=== PATIENT | male | born 1945 | race African-American/Black ===

== ENCOUNTER 2017-02-23 14:43 | Inpatient (IN) | payer MEDICARE, OTHER ==
[~2017-02-23] VITALS: Ht 175.3 cm; Wt 59.4 kg
[~2017-02-23 14:43] MED LIST: ALDACTONE50 MG ORAL; ASPIRIN81 MG ORAL; BENAZEPRIL HCL20 MG ORAL; CARTIA XT120 MG ORAL; COMBIVENT RESPIM4 GM IH; DILTIAZEM 24HR120 M1 ORAL; DILTIAZEM ER240 MG PO; DOCUSATE SODIU100 MG ORAL; FERROUS SULFAT325 MG ORAL; FUROSEMIDE20 M1 ORAL; FUROSEMIDE40 MG ORAL; FUROSEMIDE80 M1 ORAL; JANTOVEN1 MG ORAL; LASIX40 MG ORAL; LEVAQUIN500 MG ORAL; MINIPRESS1 MG PO; MINIPRESS5 MG PO; PROTONIX20 MG ORAL; Potassium Chloride ORAL; TOPROL XL50 MG ORAL; TRAMADOL HCL50 MG ORAL; TYLENOL EXTRA500 MG ORAL; VITAMIN D400 INTLU ORAL; WARFARIN SODIUM2 MG ORAL; XARELTO10 MG ORAL; ZOCOR40 MG ORAL
[2017-02-23 15:05] VITALS: BP 153/73
[2017-02-23] MEDS ORDERED: PROSCAR5 MG ORAL (15:05)
[2017-02-23] MEDS ORDERED: XARELTO10 MG ORAL (15:06)
[2017-02-23] MEDS ORDERED: MAGNEBIND 4001 EACH PO (15:07)
[2017-02-23 15:18] LABS: BASOPHILS % (AUTO) 0.8 % (0.0-2.0); EOSINOPHILS % (AUTO) 0.2 % (0.0-3.0); LYMPHOCYTES % (AUTO) 12.8 % (20.0-45.0); MEAN CORPUSCULAR HEMOGLOBIN 24.9 PG (27.0-31.0); MEAN CORPUSCULAR HGB CONC 30.1 G/DL (32.0-36.0); MEAN CORPUSCULAR VOLUME 83 FL (80-99); MEAN PLATELET VOLUME 7.8 FL (6.5-10.1); MONOCYTES % (AUTO) 9.6 % (1.0-10.0); NEUTROPHILS % (AUTO) 76.6 % (45.0-75.0); PLATELET COUNT 179 K/UL (150-450); RED BLOOD COUNT 3.91 M/UL (4.70-6.10); RED CELL DISTRIBUTION WIDTH 18.7 % (11.6-14.8); WHITE BLOOD COUNT 12.1 K/UL (4.8-10.8)
[2017-02-23 15:30] LABS: TROPONIN I < 0.30 ng/mL (<=0.30)
[2017-02-23 15:34] LABS: ALANINE AMINOTRANSFERASE 6 U/L (3-41); ALBUMIN/GLOBULIN RATIO 0.5 (1.0-2.7); ANION GAP 18 (5-15); ASPARTATE AMINO TRANSFERASE 21 U/L (5-40); CARBON DIOXIDE 22 mEQ/L (20-30); CHLORIDE 101 mEQ/L (98-107); CREATININE 1.3 mg/dL (0.7-1.2); HEMOLYSIS 0; POTASSIUM 4.1 mEQ/L (3.4-4.9); SODIUM 141 mEQ/L (135-145); TOTAL PROTEIN 8.9 g/dL (6.6-8.7)
[2017-02-23 15:35] LABS: REFLEX LACTIC ACID YES OR NO YES
[2017-02-23 15:39] LABS: CKMB 3.3 ng/mL (< 6.7)
[2017-02-23 16:00] VITALS: BP 125/73
[2017-02-23 16:18] LABS: APPEARANCE,URINE CLOUDY; KETONES,URINE NEGATIVE (NEGATIVE); LEUKOCYTE ESTERASE ,URINE NEGATIVE (NEGATIVE); NITRITE,URINE NEGATIVE (NEGATIVE); PH,URINE 5 (4.5-8.0); PROTEIN,URINE 3+ (NEGATIVE); UROBILINOGEN,URINE 8 MG/DL (0.0-1.0)
[2017-02-23 16:35] LABS: AMORPHOUS SEDIMENT,UR MODERATE /LPF; RBC,URINE 0-2 /HPF (0 - 0); WBC,URINE 0-2 /HPF (0 - 0)
[2017-02-23 17:00] VITALS: BP 134/79
[2017-02-23] MEDS ORDERED: Solu-MEDROL 125mg Inj IVP ONE (17:15)
--- NOTE | 2017-02-23 17:21 | Emergency Room Report ---
History of Present Illness General Chief Complaint: Dyspnea/Respdistress Source: Patient Present Illness HPI 71-year-old male presents to ED with shortness of breath. Patient brought in by son-in-law who states the patient has been complaining of shortness of breath for 2 days. States he is having trouble breathing. Unclear whether he is having chest pain. Patient has a history of CHF, COPD. Has a pacemaker. Denies fevers or chills. states he has a cough which is productive. Patient denies any leg swelling. No other aggravating relieving factors. Denies any other associated symptoms Allergies: Coded Allergies: SHELLFISH (Verified Allergy, Unknown, 07/01/11) Patient History Past Medical History: HTN, CHF, asthma, COPD, CVA/TIA Past Surgical History: pacemaker Pertinent Family History: none Social History: Denies: alcohol use, drug use, smoking Immunizations: UTD Reviewed Nursing Documentation: PMH: Agreed, PSxH: Agreed Nursing Documentation-PMH Past Medical History: No History, Except For Hx Cardiac Problems: Yes Hx Hypertension: Yes Hx Pacemaker: Yes - VPACED Hx Asthma: Yes Hx COPD: Yes Hx Diabetes: No Hx Cancer: No Hx Gastrointestinal Problems: Yes Hx Neurological Problems: Yes Hx Cerebrovascular Accident: Yes Hx Speech Problem: Yes Hx Dizziness: Yes Hx Syncope: Yes Hx Headaches: Yes Hx Aphasia: Yes Hx Dysphasia: Yes Hx Weakness: Yes Hx Fatigue: Yes Review of Systems All Other Systems: negative except mentioned in HPI Physical Exam Vital Signs Date Time Temp Pulse Resp B/P Pulse Ox O2 Delivery O2 Flow Rate FiO2 02/23/17 14:49 98.2 69 28 161/118 94 Nasal Cannula 2.0 02/23/17 15:00 30 Sp02 EP Interpretation: reviewed, normal General Appearance: alert, GCS 15, non-toxic, moderate distress Head: normocephalic Eyes: bilateral eye PERRL, bilateral eye normal inspection ENT: normal ENT inspection Neck: normal inspection Respiratory: decreased breath sounds, accessory muscle use, crackles Cardiovascular #1: regular rate, rhythm, no edema Gastrointestinal: normal inspection Rectal: deferred Genitourinary: no CVA tenderness Musculoskeletal: normal inspection Neurologic: alert, oriented x3, responsive, motor strength/tone normal, sensory intact, speech normal Psychiatric: normal inspection Skin: normal inspection Lymphatic: normal inspection Procedures Critical Care Time Critical Care Time i. I feel this is a highly complex case requiring extensive working including EKG/Rhythm strip, Xray/CT/US, Blood/urine lab work, repeat exams while in ED, and administration of strong opiates/narcotics for pain control, admission to hospital or close patient follow up. Total time: 30 min bedside evaluation and treatment excludes procedures (EKG). Reason for critical care: Respiratory distress, retractions, hypertensive Possible complications: hypotension, hypertension, IL, shock, arrhythmias, metabolic acidosis, end organ damage, respiratory failure. Interventions: BiPAP, labs, EKG, chest x-ray, Lasix, abx Course: Patient brought in for respiratory distress. History of CHF and COPD. Patient crackles to the apices in both lungs. Hypertensive. Started on BiPAP. Chest x-ray shows significant cardiomegaly with pulmonary congestion and possible pneumonia. Leukocytosis noted. Lactic elevated. BNP elevated. Given Lasix. Given antibiotics. Given steroids. On reassessment breathing is improved Consultations: nursing staff, EMS, family Performed by: Dr Hedrick Tolerated well condition = serious j. because of unstable vital signs this patient had a condition that could potentially threaten life or limb. I feel this is a critical patient who required my full attention while patient was considered critical. Total Critical Care Time excluding procedures was greater than 35 minutes Medical Decision Making Diagnostic Impression: Primary Impression: CHF exacerbation Qualified Codes: I50.9 - Heart failure, unspecified Additional Impressions: COPD (chronic obstructive pulmonary disease) Qualified Codes: J44.9 - Chronic obstructive pulmonary disease, unspecified Pneumonia Qualified Codes: J18.9 - Pneumonia, unspecified organism ER Course Hospital Course 71-year-old male presents ED complaining of shortness of breath, h/o COPD and CHF Differential diagnoses include: IL/unstable angina, contusion, muscle strain, PTX, rib fracture Clinical course Patient placed on stretcher. on quality assurance monitor chassis. After initial history and physical, I ordered BiPAP. I ordered labs, EKG, chest x-ray labs reviewed- noted leukocytosis, hemoglobin/hematocrit stable, creatinine elevated, troponins negative, BNP markedly elevated Chest x-ray- cardiomegaly, pulmonary congestion, pacemaker. ? infiltrate EKG - paced rhythm. no ischemic changes On reassessment breathing is improved. Given Solu-Medrol. Patient will not receive 30 mL per KG fluid bolus because of significant congestive heart failure and poor ejection fraction Antibiotics given. Lasix given. Case discussed with Dr. young and he agreed to accept the patient to his service for further care and support I. I feel this is a highly complex case requiring extensive working including EKG/Rhythm strip, Xray/CT/US, Blood/urine lab work, repeat exams while in ED, and administration of strong opiates/narcotics for pain control, admission to hospital or close patient follow up. Diagnosis - CHF exacerbation, COPD exacerbation, pneumonia admitted to [facility] in serious condition Labs Test 02/23/17 15:05 02/23/17 15:50 02/23/17 16:00 White Blood Count 12.1 K/UL (4.8-10.8) Red Blood Count 3.91 M/UL (4.70-6.10) Hemoglobin 9.7 G/DL (14.2-18.0) Hematocrit 32.3 % (42.0-52.0) Mean Corpuscular Volume 83 FL (80-99) Mean Corpuscular Hemoglobin 24.9 PG (27.0-31.0) Mean Corpuscular Hemoglobin Concent 30.1 G/DL (32.0-36.0) Red Cell Distribution Width 18.7 % (11.6-14.8) Platelet Count 179 K/UL (150-450) Mean Platelet Volume 7.8 FL (6.5-10.1) Neutrophils (%) (Auto) 76.6 % (45.0-75.0) Lymphocytes (%) (Auto) 12.8 % (20.0-45.0) Monocytes (%) (Auto) 9.6 % (1.0-10.0) Eosinophils (%) (Auto) 0.2 % (0.0-3.0) Basophils (%) (Auto) 0.8 % (0.0-2.0) Sodium Level 141 mEQ/L (135-145) Potassium Level 4.1 mEQ/L (3.4-4.9) Chloride Level 101 mEQ/L (98-107) Carbon Dioxide Level 22 mEQ/L (20-30) Anion Gap 18 (5-15) Blood Urea Nitrogen 19 mg/dL (7-23) Creatinine 1.3 mg/dL (0.7-1.2) Estimat Glomerular Filtration Rate mL/min (>60) Glucose Level 93 mg/dL (74-106) Lactic Acid Level 4.60 mmol/L (0.66-2.22) 4.00 mmol/L (0.66-2.22) Calcium Level 9.0 mg/dL (8.6-10.2) Total Bilirubin 0.9 mg/dL (0.0-1.2) Aspartate Amino Transf (AST/SGOT) 21 U/L (5-40) Alanine Aminotransferase (ALT/SGPT) 6 U/L (3-41) Alkaline Phosphatase 119 U/L (40-129) Total Creatine Kinase 122 U/L (38-174) Creatine Kinase MB 3.3 ng/mL (< 6.7) Creatine Kinase MB Relative Index 2.7 Troponin I < 0.30 ng/mL (<=0.30) Pro-B-Type Natriuretic Peptide 9293 pg/mL (0-125) Total Protein 8.9 g/dL (6.6-8.7) Albumin 3.1 g/dL (3.5-5.2) Globulin 5.8 g/dL Albumin/Globulin Ratio 0.5 (1.0-2.7) Urine Color Yellow Urine Appearance Cloudy Urine pH 5 (4.5-8.0) Urine Specific [place] 1.025 (1.005-1.035) Urine Protein 3+ (NEGATIVE) Urine Glucose (UA) Negative (NEGATIVE) Urine Ketones Negative (NEGATIVE) Urine Occult Blood 2+ (NEGATIVE) Urine Nitrite Negative (NEGATIVE) Urine Bilirubin 1+ (NEGATIVE) Urine Ictotest Urine Urobilinogen 8 MG/DL (0.0-1.0) Urine Leukocyte Esterase Negative (NEGATIVE) Urine RBC 0-2 /HPF (0 - 0) Urine WBC 0-2 /HPF (0 - 0) Urine Squamous Epithelial Cells None /LPF (NONE/OCC) Urine Amorphous Sediment Moderate /LPF (NONE) Urine Bacteria None /HPF (NONE) EKG Diagnostic Results Rate: normal Rhythm: other - paced ryhthm ST Segments: no acute changes ASA given to the pt in ED: No Rhythm Strip Diag. Results EP Interpretation: yes Rhythm: no PVC's, no ectopy, other - paced ryhthm Chest X-Ray Diagnostic Results Chest X-Ray Ordered: Yes # of Views/Limited/Complete: 1 View Interpretation: no pneumothorax, other - cardiomegaly. interstitial edema. pacemaker. ? infiltrate Indication: Shortness of Breath Impression: Other - CHF exacerbation with ? infiltrate Date Electronically Signed: Feb 23, 2017 Time Electronically Signed: 17:27 Last Vital Signs Date Time Temp Pulse Resp B/P Pulse Ox O2 Delivery O2 Flow Rate FiO2 02/23/17 16:40 76 25 96 Facial 15.0 30 02/23/17 15:05 98.2 153/73 Status: improved Disposition: ADMITTED INPATIENT Condition: Serious Referrals: HODAN YOUNG (PCP) NUZHAT HEDRICK M.D. Feb 23, 2017 17:21
[2017-02-23 18:00] VITALS: BP 121/75
[2017-02-23 19:00] VITALS: BP 120/63
[2017-02-23 20:00] VITALS: BP 129/76
[2017-02-23] MEDS ORDERED: Azithromycin 250mg tab ORAL ONE (20:00)
[2017-02-23] MEDS: cefTRIAXone 1 GM in D5W 55 ML IVPB SCH (20:30)
--- NOTE | 2017-02-23 21:31 | Consultation ---
Consult Note Assessment/Plan #[id number] COPD exac Decompensated CHF [id number] failure on bipap hypoxemia htn hx of CVA with dysphagia and aphasia PIERRE GRIFFIN DO Feb 23, 2017 21:31
[2017-02-23] MEDS: Solu-MEDROL 40mg Inj IVP SCH (22:10)
[2017-02-23] MEDS: DuoNeb 0.5-3(2.5)mg/3ml neb HHN SCH (23:03)
[2017-02-24] VITALS (7 sets, daily range): BP systolic 105–113; BP diastolic 47–57
[2017-02-24] MEDS: DuoNeb 0.5-3(2.5)mg/3ml neb HHN SCH ×6 (03:29→22:10)
--- NOTE | 2017-02-24 03:30 | Consultation ---
DATE OF CONSULTATION: 02/23/2017 CARDIOLOGY CONSULTATION: CONSULTING PHYSICIAN: Chay Godinez M.D. REQUESTING PHYSICIAN: Martinez Rubalcava M.D. REASON FOR CONSULTATION: Congestive heart failure. HISTORY OF PRESENT ILLNESS: This 71-year-old male presented to the emergency room earlier today complaining of shortness of breath of two days duration. He has not had chest pain. He has had some cough and congestion. He has not had any leg swelling. The patient has been compliant with medications and no change in diet has been noted. PAST MEDICAL HISTORY: 1. COPD. 2. Hypertension with hypertensive heart disease. 3. Coronary artery disease. 4. Arteriosclerotic cardiovascular disease. 5. Paroxysmal atrial fibrillation. 6. Permanent pacemaker. 7. Chronic systolic and diastolic congestive heart failure. 8. Diverticulosis. 9. Hemorrhoids. 10. Mild dysarthria. 11. Osteoarthritis. ALLERGIES: Shellfish. MEDICATIONS: Prior to admission, reviewed and reconciled. SOCIAL HISTORY: Former smoker, 55-pack a year, occasional beer, no excessive alcohol use, no drug abuse, and lives with his family members. FAMILY HISTORY: Noncontributory. REVIEW OF SYSTEMS: No loss of hearing. No headache. Slightly decrease vision in general. No history of thyroid disorder or diabetes. He has been . The patient is consolidated. He has had COPD with exacerbation for a number of years. The patient has a history of coronary artery disease. He had myocardial perfusion scan in 2016 that revealed mild reversible ischemia, managed medically since. He had an echocardiogram done in 2016 that revealed an ejection fraction of approximately 40% to 45% with mild degenerative valve disease. The patient has a history of GI bleeding due to hemorrhoids and diverticulosis. There is no history of prostate cancer. He has chronic kidney disease. He does have a prior stroke and mild dysarthria. He has had some limitations of his . PHYSICAL EXAMINATION: VITAL SIGNS: Temperature is 98.2 degrees, blood pressure 161/118, heart rate 69, respiratory rate 28, and oxygen saturation on two liters 94%. GENERAL: He is in moderate respiratory distress. Some accessory muscle use is noted. HEENT AND NECK: Jugular venous pressure is slightly elevated. LUNGS: With coarse breath sounds. Scattered rhonchi and rales. CARDIAC: Reveals regular rhythm and rate. Normal S1, paradoxically split S2. A 1/6 systolic murmur at the apex. ABDOMEN: Soft and nontender with no guarding or rebound. EXTREMITIES: No clubbing or cyanosis. Good pulses with trace dependent edema. DIAGNOSTIC DATA: Chest x-ray reveals cardiomegaly, pulmonary venous congestion, and possible basilar infiltrate. EKG reveals ventricular pacing. LABORATORY DATA: White count is 12.1 and hemoglobin 9.7. Lactic acid is 4.6. Troponin is negative. Pro-natriuretic peptide is 9200. Albumin is 3.1. Sodium was 141, potassium 4.1, bicarbonate 22, BUN 19, creatinine 1.3, and glucose 93. IMPRESSION: 1. Chronic obstructive pulmonary disease with acute exacerbation and acute bronchospasm. 2. Probable community-acquired pneumonia. 3. Acute on chronic systolic and diastolic congestive heart failure. 4. Lactic acidosis. 5. Possible sepsis. 6. Mild protein-calorie malnutrition. 7. Permanent pacemaker. 8. Paroxysmal atrial fibrillation. 9. Anemia with hypochromic and microcytic indices. PLAN: 1. Panculture. 2. Cardiac monitoring. 3. BiPAP support. 4. Empiric antibiotics. 5. Inhaled bronchodilators. 6. Intravenous diuresis. 7. Deep venous thrombosis prophylaxis. 8. Monitor hemoglobin. 9. Monitor volume status and cardiorenal parameters. 10. Maximize antianginal therapy. 11. Monitor acid-base status. 12. Serial lactic acid levels. 13. Condition is serious and prognosis is guarded. Chay Godinez M.D. DR: Kathy JOB#: [id number] CC:
--- NOTE | 2017-02-24 04:15 | Consultation ---
DATE OF CONSULTATION: 02/23/2017 REASON FOR CONSULTATION: Respiratory failure. HISTORY OF PRESENT ILLNESS: The patient is a 71-year-old gentleman, who was brought to the emergency room by emergency medical service for shortness of breath. He had been having worsening shortness of breath over 2 days. No nausea, vomiting, or diarrhea. No cough, phlegm, or sputum production. No hemoptysis is noted. He does have a history of congestive heart failure and chronic obstructive pulmonary disease and was felt to have mild exacerbation of both. He has had no leg swelling to report and has been taking all his medications as scheduled. He does have generalized weakness and aphasia as well as dysphagia. PAST MEDICAL HISTORY: Hypertension, congestive heart failure, asthma, chronic obstructive pulmonary disease, CVA, and transient ischemic attack. PAST SURGICAL HISTORY: Pacemaker. SOCIAL HISTORY: Currently, denies tobacco, alcohol, or drug abuse. Used tobacco in the past. PREOPERATIVE MEDICATIONS: Reviewed, reconciled and documented in the electronic medical record. PHYSICAL EXAMINATION: GENERAL: At the time of my exam, he is alert. He is oriented to person, follows and attempts to communicate. He is in no respiratory distress. He is currently on BiPAP 12/5 with tidal volumes of 500. VITAL SIGNS: His blood pressure is 129/76, pulse 62, and respirations 22. He is afebrile and saturating 100%. HEENT: His oropharynx is moist. His nasal mucosa is moist. NECK: Supple. No lymphadenopathy. LUNGS: Have bilateral crackles. No wheezes present. HEART: Regular rate and rhythm without murmur. ABDOMEN: Distended and tender. Positive bowel sounds. EXTREMITIES: No edema. Right-sided weakness is present. SKIN: No skin rashes, wounds, or lesions are noted. LABORATORY AND DIAGNOSTIC DATA: His white count 12.1, hemoglobin 9.7, and platelets are 179,000. His sodium 141, potassium 4.1, chloride 102, bicarbonate 22, BUN 19, and creatinine 1.3. His lactic acid is 4. His LFTs are essentially normal. His BNP is elevated at 4293. His urinalysis is negative for leukocyte esterase. Chest x-ray was performed per the ER record with cardiomegaly, congestive heart failure and possible infiltrate. His EKG is paced rhythm with no ischemic changes. ASSESSMENT: 1. Decompensated heart failure. 2. Chronic obstructive pulmonary disease exacerbation. 3. Possible left lower lobe infiltrate. PLAN: Plan for this patient, he is given antibiotics and Lasix in the emergency room and should be continued. I would also give 40 mg of intravenous Solu-Medrol q. 12 hours and taper accordingly. Nebulizer treatments. DVT prophylaxis. Aspiration precautions. Repeat bedside swallow. Nebulizers every 4 hours around the clock. Repeat chest x-ray in the a.m. and check a sputum for C&S. Continue the BiPAP overnight. We will attempt to take it off. I will consider to remove it in the morning and titrate his O2 for sats greater than 92%. We will continue to monitor the patient during the recent hospital stay. Yohana Cordoba D.O. DR: MARCIA JOB#: [id number] CC:
[2017-02-24] MEDS: Solu-MEDROL 40mg Inj IVP SCH ×3 (06:35→20:56)
[2017-02-24 06:37] LABS: MEAN CORPUSCULAR HEMOGLOBIN 25.9 PG (27.0-31.0); MEAN CORPUSCULAR HGB CONC 31.2 G/DL (32.0-36.0); MEAN CORPUSCULAR VOLUME 83 FL (80-99); PLATELET COUNT 121 K/UL (150-450); RED BLOOD COUNT 3.57 M/UL (4.70-6.10); RED CELL DISTRIBUTION WIDTH 18.2 % (11.6-14.8); WHITE BLOOD COUNT 8.5 K/UL (4.8-10.8)
[2017-02-24 07:24] LABS: ANION GAP 16 (5-15); CALCIUM 8.6 mg/dL (8.6-10.2); CARBON DIOXIDE 23 mEQ/L (20-30); CHLORIDE 103 mEQ/L (98-107); CREATININE 1.3 mg/dL (0.7-1.2); HEMOLYSIS 0; POTASSIUM 4.4 mEQ/L (3.4-4.9); SODIUM 142 mEQ/L (135-145)
[2017-02-24 07:30] LABS: TROPONIN I < 0.30 ng/mL (<=0.30)
[2017-02-24 08:08] LABS: ANISOCYTOSIS 1+; BAND NEUTROPHILS % (MANUAL) 0 % (0-8); BASOPHILS % (MANUAL) 0 % (0-2); EOSINOPHILS % (MANUAL) 0 % (0-3); HYPOCHROMASIA 1+; LYMPHOCYTES % (MANUAL) 3 % (20-45); NEUTROPHILS % (MANUAL) 96 % (45-75); PLATELET ESTIMATE DECREASED; PLATELET MORPHOLOGY NORMAL; TOTAL CELLS COUNTED 100
[2017-02-24] MEDS: Azithromycin 250mg tab ORAL SCH (09:15)
[2017-02-24] MEDS ORDERED: Acetaminophen 500mg (ES) tab ORAL PRN (10:00)
[2017-02-24] MEDS ORDERED: Diltiazem CD 240mg cap ORAL SCH (11:00)
[2017-02-24] MEDS ORDERED: Lisinopril 20mg tab ORAL SCH (11:00)
[2017-02-24] MEDS: Aspirin Baby 81mg ORAL SCH (12:24)
[2017-02-24] MEDS: Spironolactone 25mg tab ORAL SCH (12:24)
[2017-02-24] MEDS: Docusate 250mg cap ORAL SCH ×2 (12:25→17:43)
[2017-02-24] MEDS: Xarelto 10mg tab ORAL SCH (12:25)
[2017-02-24 15:13] LABS: KETONES,URINE NEGATIVE (NEGATIVE); LEUKOCYTE ESTERASE ,URINE 3+ (NEGATIVE); NITRITE,URINE NEGATIVE (NEGATIVE); PH,URINE 5 (4.5-8.0); PROTEIN,URINE 1+ (NEGATIVE); UROBILINOGEN,URINE NORMAL MG/DL (0.0-1.0)
[2017-02-24 15:14] LABS: APPEARANCE,URINE SLIGHTLY CLOUDY
[2017-02-24 15:22] LABS: BACTERIA,URINE MODERATE /HPF; MUCUS,URINE FEW /LPF (NONE/OCC); RBC,URINE 60-80 /HPF (0 - 0); SQUAMOUS EPITHELIAL CELL,UR MODERATE /LPF (NONE/OCC); WBC,URINE 15-20 /HPF (0 - 0)
--- NOTE | 2017-02-24 20:01 | Pulmonology Progress Note ---
Assessment/Plan Assessment/Plan 1. Decompensated heart failure. 2. Chronic obstructive pulmonary disease exacerbation. 3. Possible left lower lobe infiltrate. 4. UTI 5. Abdominal pain 6. Expressive aphasia 7. hx of prostate CA PLAN: continue abx diuresis per cards repeat CR otis am Fu kub,unable to see at thsi time, will get report from radiology bipap prn distress nebs adn suction titrate o2 Subjective Constitutional: Reports: no symptoms Respiratory: Reports: no symptoms Cardiovascular: Reports: no symptoms Gastrointestinal/Abdominal: Reports: other - pain Allergies: Coded Allergies: SHELLFISH (Verified Allergy, Unknown, 07/01/11) Subjective tolerating being off bipap no distress tolerating clears no cp nv or bleeding on supple o2 positive uop complains of abdominal pain Objective Last 24 Hour Vital Signs Date Time Temp Pulse Resp B/P Pulse Ox O2 Delivery O2 Flow Rate FiO2 02/24/17 19:37 72 20 99 Nasal Cannula 2.0 28 02/24/17 19:30 98 Nasal Cannula 2.0 28 02/24/17 19:30 Nasal Cannula 2.0 28 02/24/17 19:30 69 20 98 Nasal Cannula 2.0 28 02/24/17 17:01 63 02/24/17 16:23 69 25 99 Nasal Cannula 2.0 28 02/24/17 16:14 28 02/24/17 16:14 68 25 99 Nasal Cannula 2.0 28 02/24/17 16:00 98.0 62 22 113/54 100 Nasal Cannula 2.0 02/24/17 12:25 65 105/56 02/24/17 12:00 98.0 59 21 105/53 100 Nasal Cannula 2.0 02/24/17 11:46 66 02/24/17 10:53 69 25 99 Nasal Cannula 2.0 28 02/24/17 10:43 68 25 99 Nasal Cannula 2.0 28 02/24/17 10:43 28 02/24/17 08:41 70 41 98 Facial 30 02/24/17 08:00 30 02/24/17 08:00 98.0 60 29 111/54 100 Bi-pap 30 02/24/17 07:54 61 02/24/17 07:01 66 33 99 Bi-pap 30 02/24/17 06:51 66 33 99 Facial 30 02/24/17 06:51 30 02/24/17 06:51 66 33 99 Bi-pap 30 02/24/17 05:05 64 25 99 Facial 30 02/24/17 04:00 60 02/24/17 04:00 30 02/24/17 03:50 97.9 60 20 107/57 100 Bi-pap 02/24/17 03:40 64 25 97 Bi-pap 30 02/24/17 03:29 62 24 99 Bi-pap 30 02/24/17 03:29 30 02/24/17 03:00 64 30 99 Facial 30 02/24/17 01:00 62 30 99 Facial 30 02/24/17 00:47 97.9 02/24/17 00:00 97.9 63 21 113/57 100 Bi-pap 30 02/23/17 23:46 60 02/23/17 23:09 65 25 99 Bi-pap 30 02/23/17 23:04 30 02/23/17 23:04 65 25 Bi-pap 30 02/23/17 23:00 65 30 99 Facial 30 02/23/17 21:34 60 02/23/17 21:00 70 30 98 Facial 30 02/23/17 20:00 30 02/23/17 20:00 98.1 63 22 129/76 100 Bi-pap 30 Intake and Output 02/23/17 02/24/17 19:00 07:00 Intake Total 250 ml 110 ml Output Total 900 ml Balance 250 ml -790 ml IV Total 250 ml 110 ml Output Urine Total 900 ml # Voids 1 General Appearance: cachetic HEENT: atraumatic Respiratory/Chest: lungs clear, crackles/rales Cardiovascular: normal rate, regular rhythm Abdomen: guarding, tender Extremities: no cyanosis Skin: no rash Neurologic/Psychiatric: alert, aphasia Lymphatic: no neck adenopathy Laboratory Tests 02/24/17 05:50: White Blood Count 8.5, Red Blood Count 3.57L, Hemoglobin 9.3L, Hematocrit 29.6L , Mean Corpuscular Volume 83, Mean Corpuscular Hemoglobin 25.9L, Mean Corpuscular Hemoglobin Concent 31.2L, Red Cell Distribution Width 18.2H, Platelet Count 121L, Mean Platelet Volume 8.0, Neutrophils (%) (Auto) , Lymphocytes (%) (Auto) , Monocytes (%) (Auto) , Eosinophils (%) (Auto) , Basophils (%) (Auto) , Differential Total Cells Counted 100, Neutrophils % ( Manual) 96H, Lymphocytes % (Manual) 3L, Monocytes % (Manual) 1, Eosinophils % ( Manual) 0, Basophils % (Manual) 0, Band Neutrophils 0, Platelet Estimate DecreasedL, Platelet Morphology Normal, Hypochromasia 1+, Anisocytosis 1+, Sodium Level 142, Potassium Level 4.4, Chloride Level 103, Carbon Dioxide Level 23, Anion Gap 16H, Blood Urea Nitrogen 23, Creatinine 1.3H, Estimat Glomerular Filtration Rate , Glucose Level 117H, Lactic Acid Level 1.20, Calcium Level 8.6 , Troponin I < 0.30 02/24/17 11:20: Urine Color Pale yellow, Urine Appearance Slightly cloudy, Urine pH 5, Urine Specific [place] 1.020, Urine Protein 1+H, Urine Glucose (UA) Negative, Urine Ketones Negative, Urine Occult Blood 5+H, Urine Nitrite Negative, Urine Bilirubin Negative, Urine Urobilinogen Normal, Urine Leukocyte Esterase 3+H, Urine RBC 60-80H, Urine WBC 15-20H, Urine Squamous Epithelial Cells ModerateH, Urine Bacteria ModerateH, Urine Mucus FewH Current Medications Medications (Trade) Dose Ordered Sig/Scot Route PRN Reason Start Time Stop Time Status Last Admin Dose Admin Acetaminophen (Tylenol) 500 mg Q8H PRN ORAL Mild Pain (Pain Scale 1-3) 02/24/17 10:00 03/26/17 09:59 Albuterol/ Ipratropium (DuoNeb 0.5-3(2.5)mg/3ml) 3 ml Q4HRT HHN 02/23/17 23:00 02/28/17 22:59 02/24/17 19:35 Aspirin (ASA) 81 mg DAILY ORAL 02/24/17 11:00 03/26/17 10:59 02/24/17 12:24 Atorvastatin Calcium (Lipitor) 40 mg BEDTIME ORAL 02/24/17 21:00 03/26/17 20:59 Azithromycin 250 mg 250 mg DAILY ORAL 02/24/17 09:00 03/03/17 08:59 02/24/17 09:15 Ceftriaxone Sodium/Dextrose (Rocephin/D5W) 55 ml @ 110 mls/hr Q24H IVPB 02/23/17 20:00 03/02/17 19:59 02/23/17 20:30 Diltiazem HCl (Cardizem CD) 120 mg Q12HR ORAL 02/24/17 21:00 03/26/17 20:59 Docusate Sodium (Colace) 250 mg TWICE A DAY ORAL 02/24/17 11:00 03/26/17 10:59 02/24/17 17:43 Doxazosin Mesylate (Cardura) 4 mg QHS ORAL 02/24/17 21:00 03/26/17 20:59 Ferrous Sulfate (Feosol) 325 mg DAILY ORAL 02/24/17 11:00 03/26/17 10:59 02/24/17 12:24 Finasteride (Proscar) 5 mg DAILY ORAL 02/24/17 11:00 03/26/17 10:59 02/24/17 12:25 Furosemide (Lasix) 80 mg DAILY ORAL 02/25/17 09:00 03/27/17 08:59 Lisinopril (Prinivil) 40 mg DAILY ORAL 02/25/17 09:00 03/27/17 08:59 Methylprednisolone Sodium Succinate (Solu-MEDROL) 40 mg EVERY 8 HOURS IVP 02/23/17 22:00 03/25/17 21:59 02/24/17 14:47 Metoprolol Succinate (Toprol XL) 50 mg DAILY ORAL 02/24/17 11:00 03/26/17 10:59 02/24/17 12:25 Pantoprazole (Protonix) 40 mg DAILY ORAL 02/24/17 11:00 03/26/17 10:59 02/24/17 12:25 Potassium Chloride (K-Dur) 40 meq TWICE A DAY ORAL 02/24/17 11:00 03/26/17 10:59 02/24/17 17:43 Rivaroxaban (Xarelto) 10 mg DAILY ORAL 02/24/17 12:00 03/26/17 11:59 02/24/17 12:25 Sennosides (Senokot) 17.2 mg DAILY ORAL 02/24/17 11:00 03/26/17 10:59 02/24/17 12:25 Spironolactone (Aldactone) 25 mg DAILY ORAL 02/24/17 11:00 03/26/17 10:59 02/24/17 12:24 Tramadol HCl (Ultram) 50 mg Q6H PRN ORAL Moderate Pain (Pain Scale 4-6) 02/24/17 10:00 03/03/17 09:59 PIERRE GRIFFIN DO Feb 24, 2017 20:00
--- NOTE | 2017-02-24 20:45 | History and Physical Report ---
DATE OF ADMISSION: 02/23/2017 CHIEF COMPLAINT AND REASON FOR HOSPITALIZATION: The patient admitted with shortness of breath and respiratory failure. HISTORY OF PRESENT ILLNESS: The patient has history of CHF with low ejection fraction, COPD, permanent pacemaker, paroxysmal atrial fibrillation, and prior GI bleeding. He has chronic COPD and uses a nebulizer at home and high dose of Lasix. He presents with increasing shortness of breath and was placed on BiPAP in the emergency room. He has had prior evaluations for GI bleeding with negative studies. PAST SURGICAL HISTORY: Permanent pacemaker. HOME MEDICATIONS: Tylenol as needed, Combivent inhaler two sprays every 4 hours p.r.n., aspirin 81 mg daily, benazepril 20 mg b.i.d., calcium one tablet b.i.d., diltiazem 240 mg daily, DSS 100 mg b.i.d., ferrous sulfate 325 mg daily, finasteride 5 mg daily, Lasix 80 mg in the morning and 40 mg in the evening, metoprolol 50 mg daily, Protonix 40 mg daily, 5 mg daily, Xarelto 10 mg daily, Zocor 40 mg daily, Aldactone 25 mg daily, tramadol 50 mg every six hours hours as needed, potassium 20 mEq two tablets daily. ALLERGIES: Shellfish. HABITS: He is a former smoker. Quit many years ago. Drinks occasional beer. No drugs. Socially lives with family. REVIEW OF SYSTEMS: HEAD EYES, EARS, NOSE, AND THROAT: Vision and hearing are clear. Endocrine: No diabetes or thyroid disease. PULMONARY: COPD as above. No known TB. CARDIAC: See above. He is not complaining of chest pain. GASTROINTESTINAL: History of Hemoccult-positive stool with negative studies in the past. GENITOURINARY: History of BPH. He is voiding well now. Amy was placed in the emergency room. NEUROLOGIC: History of CVA with severe dysarthria. No focal extremity weakness. MUSCULOSKELETAL: No joint pain at this time. PHYSICAL EXAMINATION: GENERAL: The patient is alert, seen on BiPAP. VITAL SIGNS: Temperature 98 degrees, pulse 60, respirations 29, blood pressure 111/54, O2 saturation 100%. HEAD EYES, EARS, NOSE, THROAT: Sclerae are nonicteric. Ocular motions intact in all directions. Oral mucosa moist. NECK: No adenopathy. LUNGS: Distant breath sounds. Occasional rales and rhonchi. HEART: Rhythm is regular. I hear no murmur. ABDOMEN: Soft without organomegaly or masses. EXTREMITIES: No edema, cyanosis, or clubbing. SKIN: There is scaly skin on all extremities. NEUROLOGIC: He is awake, alert, and oriented. Ocular motion is intact in all directions, smile symmetric. Tongue is midline. He has severe dysarthria and moves all extremities. PERTINENT LABORATORY DATA: On admission, white count 12.1, hemoglobin 9.7. Sodium 141, potassium 4.1, chloride 101, CO2 22, BUN 19, creatinine 1.3. Troponin less than . BNP 9293. Lactic acid was elevated at 4.6, this returned to 1.2. IMPRESSION: 1. Chronic obstructive pulmonary disease with acute exacerbation. 2. Congestive heart failure acute on chronic with systolic dysfunction. 3. Respiratory failure, acute. 4. Possible acute bronchitis. 5. Anemia likely from chronic iron-deficiency. 6. History of paroxysmal atrial fibrillation. 7. History of anticoagulation with Xarelto. PLAN: The patient will be diuresed, given steroids, and nebulizer treatments. Try to him off the BiPAP and watch him closely in view of his comorbidities. Martinez Rubalcava M.D. DR: RAZIA JOB#: [id number] CC:
[2017-02-24] MEDS: cefTRIAXone 1 GM in D5W 55 ML IVPB SCH (20:56)
[2017-02-24] MEDS: Doxazosin 4mg tab ORAL SCH (21:00)
[2017-02-24] MEDS: Diltiazem CD 120mg cap ORAL SCH (21:00)
[2017-02-24] MEDS: traMADol 50mg tab ORAL PRN (21:20)
[2017-02-25] VITALS: BP 106/53
--- NOTE | 2017-02-25 03:15 | Progress Note ---
February 24, 2017 CARDIOLOGY PROGRESS NOTE SUBJECTIVE: The patient is somewhat short of breath. He has had good urine output. He does still have some abdominal pain. Oral intake and appetite are poor. OBJECTIVE: VITAL SIGNS: Blood pressure is 107/47, pulse 62, and respirations 18. Afebrile. NECK: Supple. LUNGS: With diminished breath sounds and scattered rales. CARDIAC: Regular rhythm and rate. Normal S1 and S2. A 1/6 systolic apical murmur. ABDOMEN: Soft. Slight tenderness in the lower quadrants. EXTREMITIES: No edema. LABORATORY DATA: White count 8.5 and hemoglobin 9.3. Lactic acid now has normalized to 1.2. Troponins are negative. BUN 23 and creatinine 1.3. Potassium 4.4. IMPRESSION: 1. Acute on chronic systolic and diastolic congestive heart failure. 2. Chronic obstructive pulmonary disease with acute exacerbation. 3. Acute bronchitis. 4. Anemia due to iron deficiency. 5. Paroxysmal atrial fibrillation. 6. Hypertensive heart disease. 7. Lactic acidosis, resolved. 8. Permanent pacemaker. PLAN: 1. Continue diuresis. 2. Optimize anti-failure therapy. 3. Taper steroids, inhaled bronchodilators, and empiric antibiotics. 4. Pacemaker interrogation if not recently done as an outpatient. 5. Continue cardioembolic prophylaxis with Xarelto. Chay Godinez M.D. DR: PHILLIP JOB#: [id number] CC: AN
[2017-02-25] MEDS: DuoNeb 0.5-3(2.5)mg/3ml neb HHN SCH ×6 (03:40→22:49)
[2017-02-25 04:00] VITALS: BP 124/62
[2017-02-25 05:32] LABS: MEAN CORPUSCULAR HEMOGLOBIN 25.9 PG (27.0-31.0); MEAN CORPUSCULAR VOLUME 84 FL (80-99); MEAN PLATELET VOLUME 7.7 FL (6.5-10.1); PLATELET COUNT 137 K/UL (150-450); RED BLOOD COUNT 3.49 M/UL (4.70-6.10); RED CELL DISTRIBUTION WIDTH 18.6 % (11.6-14.8)
[2017-02-25 05:58] LABS: ANION GAP 17 (5-15); CALCIUM 8.6 mg/dL (8.6-10.2); CARBON DIOXIDE 24 mEQ/L (20-30); CHLORIDE 97 mEQ/L (98-107); CREATININE 1.4 mg/dL (0.7-1.2); HEMOLYSIS 0; POTASSIUM 4.4 mEQ/L (3.4-4.9); SODIUM 138 mEQ/L (135-145)
[2017-02-25 06:02] LABS: TROPONIN I < 0.30 ng/mL (<=0.30)
[2017-02-25 08:00] VITALS: BP 132/71
[2017-02-25] MEDS ORDERED: Furosemide 80mg tab ORAL SCH (09:00)
--- NOTE | 2017-02-25 09:11 | Diagnostic Imaging Report ---
Indication: Abdominal pain Comparison: None Single view of the abdomen obtained Findings: Bowel gas pattern is nonspecific. No mass, ectopic calcifications, or abnormal gas collections are identified. The bones are unremarkable. There is a left total hip prosthesis. Vascular calcifications are present. Pacemaker noted. Impression: No acute findings
--- NOTE | 2017-02-25 09:11 | Diagnostic Imaging Report ---
Indication: Dyspnea Comparison: 11/01/15 A single view chest radiograph was obtained. Findings: There is interstitial edema present. Right pleural effusion is suspected. Cardiomegaly is noted. Pacemaker again demonstrated on the right. The bones are osteopenic. Impression: Interstitial edema/CHF. Right pleural effusion
[2017-02-25] MEDS: Xarelto 10mg tab ORAL SCH (09:35)
[2017-02-25] MEDS: Azithromycin 250mg tab ORAL SCH (09:35)
[2017-02-25] MEDS: Solu-MEDROL 40mg Inj IVP SCH ×2 (09:35→21:04)
[2017-02-25] MEDS: Lisinopril 20mg tab ORAL SCH (09:36)
[2017-02-25] MEDS: traMADol 50mg tab ORAL PRN (09:36)
[2017-02-25] MEDS: Spironolactone 25mg tab ORAL SCH (09:38)
[2017-02-25] MEDS: Aspirin Baby 81mg ORAL SCH (09:38)
[2017-02-25] MEDS: Diltiazem CD 120mg cap ORAL SCH ×2 (09:39→21:04)
[2017-02-25] MEDS: Docusate 250mg cap ORAL SCH ×2 (09:39→17:47)
--- NOTE | 2017-02-25 10:24 | Pulmonology Progress Note ---
Assessment/Plan Assessment/Plan 1. Decompensated heart failure. 2. Chronic obstructive pulmonary disease exacerbation. 3. Abdominal pain 4. UTI 5. hx of prostate CA 6. Expressive aphasia 7. Anemia F/u CXR PSA bladder scan cint HHN, abx, diuresis Subjective Constitutional: Denies: fever Respiratory: Denies: shortness of breath Cardiovascular: Denies: chest pain Gastrointestinal/Abdominal: Reports: other - abd pain Allergies: Coded Allergies: SHELLFISH (Verified Allergy, Unknown, 07/01/11) Objective Last 24 Hour Vital Signs Date Time Temp Pulse Resp B/P Pulse Ox O2 Delivery O2 Flow Rate FiO2 02/25/17 09:39 78 124/67 02/25/17 09:37 78 124/67 02/25/17 09:36 124/67 02/25/17 08:00 97.5 85 20 132/71 99 Nasal Cannula 2.0 02/25/17 08:00 91 02/25/17 07:26 67 18 99 Nasal Cannula 2.0 02/25/17 07:11 Nasal Cannula 2.0 02/25/17 07:11 66 18 99 Nasal Cannula 2.0 02/25/17 07:10 99 Nasal Cannula 2.0 02/25/17 04:00 97.7 65 20 124/62 100 Nasal Cannula 2.0 02/25/17 04:00 69 02/25/17 03:40 64 20 99 Nasal Cannula 2.0 02/25/17 03:40 60 20 98 Nasal Cannula 2.0 28 02/25/17 00:00 98.2 70 18 106/53 100 Nasal Cannula 2.0 02/25/17 00:00 78 02/24/17 22:19 98.1 02/24/17 22:10 64 20 97 Nasal Cannula 2.0 02/24/17 22:10 68 20 98 Nasal Cannula 2.0 28 02/24/17 21:00 62 107/47 02/24/17 20:00 98.1 62 18 107/47 100 Nasal Cannula 2.0 02/24/17 19:52 67 02/24/17 19:37 72 20 99 Nasal Cannula 2.0 28 02/24/17 19:30 98 Nasal Cannula 2.0 28 02/24/17 19:30 Nasal Cannula 2.0 28 02/24/17 19:30 69 20 98 Nasal Cannula 2.0 28 02/24/17 17:01 63 02/24/17 16:23 69 25 99 Nasal Cannula 2.0 28 02/24/17 16:14 28 02/24/17 16:14 68 25 99 Nasal Cannula 2.0 28 02/24/17 16:00 98.0 62 22 113/54 100 Nasal Cannula 2.0 02/24/17 12:25 65 105/56 02/24/17 12:00 98.0 59 21 105/53 100 Nasal Cannula 2.0 02/24/17 11:46 66 02/24/17 10:53 69 25 99 Nasal Cannula 2.0 28 02/24/17 10:43 68 25 99 Nasal Cannula 2.0 28 02/24/17 10:43 28 Intake and Output 02/24/17 02/25/17 19:00 07:00 Intake Total 900 ml 55 ml Output Total 950 ml Balance -50 ml 55 ml Intake Oral 900 ml IV Total 55 ml Output Urine Total 950 ml # Bowel Movements 1 General Appearance: no acute distress, cachetic Respiratory/Chest: lungs clear, decreased breath sounds Cardiovascular: normal rate Abdomen: soft, non tender Microbiology Date/Time Source Procedure Growth Status 02/24/17 11:20 Indwelling Cath Urine Culture - Preliminary NO GROWTH Resulted Laboratory Tests 02/24/17 11:20: Urine Color Pale yellow, Urine Appearance Slightly cloudy, Urine pH 5, Urine Specific [place] 1.020, Urine Protein 1+H, Urine Glucose (UA) Negative, Urine Ketones Negative, Urine Occult Blood 5+H, Urine Nitrite Negative, Urine Bilirubin Negative, Urine Urobilinogen Normal, Urine Leukocyte Esterase 3+H, Urine RBC 60-80H, Urine WBC 15-20H, Urine Squamous Epithelial Cells ModerateH, Urine Bacteria ModerateH, Urine Mucus FewH 02/25/17 03:40: Sodium Level 138, Potassium Level 4.4, Chloride Level 97L, Carbon Dioxide Level 24, Anion Gap 17H, Blood Urea Nitrogen 31H, Creatinine 1.4H, Estimat Glomerular Filtration Rate , Glucose Level 178H, Calcium Level 8.6, Troponin I < 0.30 02/25/17 03:50: White Blood Count 14.0#H, Red Blood Count 3.49L, Hemoglobin 9.0L, Hematocrit 29.1L, Mean Corpuscular Volume 84, Mean Corpuscular Hemoglobin 25.9L, Mean Corpuscular Hemoglobin Concent 31.0L, Red Cell Distribution Width 18.6H, Platelet Count 137L, Mean Platelet Volume 7.7, Neutrophils (%) (Auto) , Lymphocytes (%) (Auto) , Monocytes (%) (Auto) , Eosinophils (%) (Auto) , Basophils (%) (Auto) Current Medications Medications (Trade) Dose Ordered Sig/Scot Route PRN Reason Start Time Stop Time Status Last Admin Dose Admin Acetaminophen (Tylenol) 500 mg Q8H PRN ORAL Mild Pain (Pain Scale 1-3) 02/24/17 10:00 03/26/17 09:59 Albuterol/ Ipratropium (DuoNeb 0.5-3(2.5)mg/3ml) 3 ml Q4HRT HHN 02/23/17 23:00 02/28/17 22:59 02/25/17 07:09 Aspirin (ASA) 81 mg DAILY ORAL 02/24/17 11:00 03/26/17 10:59 02/25/17 09:38 Atorvastatin Calcium (Lipitor) 40 mg BEDTIME ORAL 02/24/17 21:00 03/26/17 20:59 02/24/17 20:57 Azithromycin 250 mg 250 mg DAILY ORAL 02/24/17 09:00 03/03/17 08:59 02/25/17 09:35 Ceftriaxone Sodium/Dextrose (Rocephin/D5W) 55 ml @ 110 mls/hr Q24H IVPB 02/23/17 20:00 03/02/17 19:59 02/24/17 20:56 Diltiazem HCl (Cardizem CD) 120 mg Q12HR ORAL 02/24/17 21:00 03/26/17 20:59 02/25/17 09:39 Docusate Sodium (Colace) 250 mg TWICE A DAY ORAL 02/24/17 11:00 03/26/17 10:59 02/25/17 09:39 Doxazosin Mesylate (Cardura) 4 mg QHS ORAL 02/24/17 21:00 03/26/17 20:59 Ferrous Sulfate (Feosol) 325 mg DAILY ORAL 02/24/17 11:00 03/26/17 10:59 02/25/17 09:39 Finasteride (Proscar) 5 mg DAILY ORAL 02/24/17 11:00 03/26/17 10:59 02/25/17 09:38 Furosemide (Lasix) 80 mg DAILY ORAL 02/25/17 09:00 03/27/17 08:59 02/25/17 09:38 Lisinopril (Prinivil) 40 mg DAILY ORAL 02/25/17 09:00 03/27/17 08:59 02/25/17 09:36 Methylprednisolone Sodium Succinate (Solu-MEDROL) 40 mg EVERY 12 HOURS IVP 02/24/17 21:00 03/26/17 20:59 02/25/17 09:35 Metoprolol Succinate (Toprol XL) 50 mg DAILY ORAL 02/24/17 11:00 03/26/17 10:59 02/25/17 09:37 Pantoprazole (Protonix) 40 mg DAILY ORAL 02/24/17 11:00 03/26/17 10:59 02/25/17 09:37 Potassium Chloride (K-Dur) 40 meq TWICE A DAY ORAL 02/24/17 11:00 03/26/17 10:59 02/25/17 09:38 Rivaroxaban (Xarelto) 10 mg DAILY ORAL 02/24/17 12:00 03/26/17 11:59 02/25/17 09:35 Sennosides (Senokot) 17.2 mg DAILY ORAL 02/24/17 11:00 03/26/17 10:59 02/25/17 09:38 Spironolactone (Aldactone) 25 mg DAILY ORAL 02/24/17 11:00 03/26/17 10:59 02/25/17 09:38 Tramadol HCl (Ultram) 50 mg Q6H PRN ORAL Moderate Pain (Pain Scale 4-6) 02/24/17 10:00 03/03/17 09:59 02/25/17 09:36 ERIN ARIAS 12, 2017 10:24
[2017-02-25] MEDS ORDERED: Tubing IV Secondary IV ONE (11:05)
[2017-02-25] MEDS ORDERED: NS 275ml ONE (11:05)
[2017-02-25] MEDS ORDERED: NS 550ML IV ONE (11:05)
[2017-02-25 12:00] VITALS: BP 137/58
--- NOTE | 2017-02-25 14:34 | General Progress Note ---
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) ICD Codes: D50.0 - Iron deficiency anemia secondary to blood loss (chronic) SNOMED: 87186641, 716957956 (3) Atrial fibrillation ICD Codes: I48.91 - Atrial fibrillation SNOMED: 99575785 (4) CHF (congestive heart failure), NYHA class II ICD Codes: I50.9 - Heart failure, unspecified SNOMED: 302769756, 182183537 (5) Chronic obstructive asthma with status asthmaticus ICD Codes: J44.9 - Chronic obstructive asthma with status asthmaticus SNOMED: 7605383459249 (6) CHF exacerbation ICD Codes: I50.9 - Heart failure, unspecified SNOMED: 72845189 (7) 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 ICD Codes: I69.922 - 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 SNOMED: 209873173 Assessment/Plan can taper steroids, mobilize Subjective Constitutional: Reports: weakness HEENT: Reports: no symptoms Cardiovascular: Reports: no symptoms Respiratory: Reports: shortness of breath Gastrointestinal/Abdominal: Reports: abdomen distended, no symptoms Genitourinary: Reports: urgency Neurologic/Psychiatric: Reports: pre-existing deficit Endocrine: Reports: no symptoms Hematologic/Lymphatic: Reports: anemia Allergies: Coded Allergies: SHELLFISH (Verified Allergy, Unknown, 07/01/11) Subjective less sob Objective Last 24 Hour Vital Signs Date Time Temp Pulse Resp B/P Pulse Ox O2 Delivery O2 Flow Rate FiO2 02/25/17 12:00 97.2 88 20 137/58 99 Nasal Cannula 2.0 02/25/17 11:02 98 20 99 Nasal Cannula 2.0 02/25/17 10:47 105 20 99 Nasal Cannula 2.0 02/25/17 10:38 97.5 02/25/17 09:39 78 124/67 02/25/17 09:37 78 124/67 02/25/17 09:36 124/67 02/25/17 08:00 97.5 85 20 132/71 99 Nasal Cannula 2.0 02/25/17 08:00 91 02/25/17 07:26 67 18 99 Nasal Cannula 2.0 02/25/17 07:11 Nasal Cannula 2.0 02/25/17 07:11 66 18 99 Nasal Cannula 2.0 02/25/17 07:10 99 Nasal Cannula 2.0 02/25/17 04:00 97.7 65 20 124/62 100 Nasal Cannula 2.0 02/25/17 04:00 69 02/25/17 03:40 64 20 99 Nasal Cannula 2.0 28 02/25/17 03:40 60 20 98 Nasal Cannula 2.0 28 02/25/17 00:00 98.2 70 18 106/53 100 Nasal Cannula 2.0 02/25/17 00:00 78 02/24/17 22:10 64 20 97 Nasal Cannula 2.0 28 02/24/17 22:10 68 20 98 Nasal Cannula 2.0 28 02/24/17 21:00 62 107/47 02/24/17 20:00 98.1 62 18 107/47 100 Nasal Cannula 2.0 02/24/17 19:52 67 02/24/17 19:37 72 20 99 Nasal Cannula 2.0 28 02/24/17 19:30 98 Nasal Cannula 2.0 28 02/24/17 19:30 Nasal Cannula 2.0 28 02/24/17 19:30 69 20 98 Nasal Cannula 2.0 28 02/24/17 17:01 63 02/24/17 16:23 69 25 99 Nasal Cannula 2.0 28 02/24/17 16:14 28 02/24/17 16:14 68 25 99 Nasal Cannula 2.0 28 02/24/17 16:00 98.0 62 22 113/54 100 Nasal Cannula 2.0 Intake and Output 02/24/17 02/25/17 19:00 07:00 Intake Total 900 ml 55 ml Output Total 950 ml Balance -50 ml 55 ml Intake Oral 900 ml IV Total 55 ml Output Urine Total 950 ml # Bowel Movements 1 Laboratory Tests 02/25/17 03:40: Sodium Level 138, Potassium Level 4.4, Chloride Level 97L, Carbon Dioxide Level 24, Anion Gap 17H, Blood Urea Nitrogen 31H, Creatinine 1.4H, Estimat Glomerular Filtration Rate , Glucose Level 178H, Calcium Level 8.6, Troponin I < 0.30 02/25/17 03:50: White Blood Count 14.0#H, Red Blood Count 3.49L, Hemoglobin 9.0L, Hematocrit 29.1L, Mean Corpuscular Volume 84, Mean Corpuscular Hemoglobin 25.9L, Mean Corpuscular Hemoglobin Concent 31.0L, Red Cell Distribution Width 18.6H, Platelet Count 137L, Mean Platelet Volume 7.7, Neutrophils (%) (Auto) , Lymphocytes (%) (Auto) , Monocytes (%) (Auto) , Eosinophils (%) (Auto) , Basophils (%) (Auto) Height (Feet): 5 Height (Inches): 9.00 Weight (Pounds): 144 General Appearance: no apparent distress, alert EENT: PERRL/EOMI Neck: normal alignment Cardiovascular: normal rate, regular rhythm Respiratory/Chest: lungs clear, decreased breath sounds Abdomen: non tender, distended Edema: no edema noted Arm (L), no edema noted Arm (R), no edema noted Leg (L), no edema noted Leg (R), no edema noted Pedal (L), no edema noted Pedal (R), no edema noted Generalized Neurologic: other - dysarthric HODAN GAYTAN Feb 25, 2017 14:34
[2017-02-25 16:00] VITALS: BP 134/70
[2017-02-25 16:49] LABS: HEMOLYSIS 0; IRON 30 ug/dL (59-158); TOTAL IRON BINDING CAPACITY 226 ug/dL (250-400)
[2017-02-25 17:06] LABS: FERRITIN 215 ng/mL (10-230)
[2017-02-25] MEDS: Furosemide 80mg tab ORAL SCH (17:47)
[2017-02-25] MEDS: cefTRIAXone 1 GM in D5W 55 ML IVPB SCH (20:46)
[2017-02-25] MEDS: Doxazosin 4mg tab ORAL SCH (21:04)
[2017-02-25] MEDS: Iron Sucrose 100 MG in NS 55 ML IVPB SCH (21:18)
[2017-02-26] VITALS (7 sets, daily range): BP systolic 110–162; BP diastolic 50–81
--- NOTE | 2017-02-26 03:30 | Progress Note ---
DATE: 02/25/2017 CARDIOLOGY PROGRESS NOTE SUBJECTIVE: The patient is somewhat less short of breath. Monitored rhythm, atrial fibrillation, demand ventricular pacing. OBJECTIVE: VITAL SIGNS: Blood pressure 137/58, pulse 88, and respirations 20. NECK: Supple. Jugular venous pressure is still elevated. LUNGS: With diminished breath sounds. Few rales. CARDIAC: Irregularly irregular. Normal S1 and paradoxically split S2. A 1/6 systolic apical murmur. ABDOMEN: Soft. EXTREMITIES: Trace edema. NEUROLOGIC: The patient has dysarthria. LABORATORY DATA: White count 14, hemoglobin 9, and platelets 137,000. Iron saturation 13%. Sodium 138, potassium 4.4, bicarbonate 24, BUN 31, and creatinine 1.4. Glucose 178. Troponin negative. IMPRESSION: 1. Acute on chronic diastolic and systolic congestive heart failure. 2. Chronic obstructive pulmonary disease exacerbation. 3. Urinary tract infection. 4. Paroxysmal atrial fibrillation. 5. Permanent pacemaker. 6. Cerebrovascular accident with aphasia. PLAN: 1. Continue diuresis. 2. Maximize anti-failure therapy. 3. Potassium replacement as needed. 4. Cardioembolic prophylaxis with Xarelto. 5. Discontinue aspirin to decrease bleeding risks. 6. Iron replacement. 7. Outpatient pacemaker interrogation. Chay Godinez M.D. DR: PHILLIP JOB#: [id number] CC:
[2017-02-26] MEDS: DuoNeb 0.5-3(2.5)mg/3ml neb HHN SCH ×5 (04:13→22:57)
[2017-02-26 05:31] LABS: MEAN CORPUSCULAR HEMOGLOBIN 25.8 PG (27.0-31.0); MEAN CORPUSCULAR HGB CONC 30.8 G/DL (32.0-36.0); MEAN CORPUSCULAR VOLUME 84 FL (80-99); MEAN PLATELET VOLUME 8.8 FL (6.5-10.1); PLATELET COUNT 125 K/UL (150-450); RED BLOOD COUNT 3.34 M/UL (4.70-6.10); RED CELL DISTRIBUTION WIDTH 19.3 % (11.6-14.8); WHITE BLOOD COUNT 11.3 K/UL (4.8-10.8)
[2017-02-26 05:56] LABS: ANION GAP 12 (5-15); CARBON DIOXIDE 26 mEQ/L (20-30); CHLORIDE 101 mEQ/L (98-107); CREATININE 1.2 mg/dL (0.7-1.2); HEMOLYSIS 0; POTASSIUM 4.6 mEQ/L (3.4-4.9); SODIUM 139 mEQ/L (135-145)
[2017-02-26] MEDS: Docusate 250mg cap ORAL SCH ×2 (09:00→18:05)
--- NOTE | 2017-02-26 09:08 | Pulmonology Progress Note ---
Assessment/Plan Assessment/Plan 1. Decompensated heart failure. 2. Chronic obstructive pulmonary disease exacerbation. 3. Abdominal pain 4. UTI 5. hx of prostate CA 6. Expressive aphasia 7. Anemia 8. Gross hematuria ua cs hold Xarelto and Plavix called Dr Rubalcava cont HHN, abx, diuresis Subjective ROS Limited/Unobtainable: Yes Respiratory: Reports: shortness of breath Genitourinary: Reports: hematuria Allergies: Coded Allergies: SHELLFISH (Verified Allergy, Unknown, 07/01/11) Objective Last 24 Hour Vital Signs Date Time Temp Pulse Resp B/P Pulse Ox O2 Delivery O2 Flow Rate FiO2 02/26/17 08:00 97.7 64 20 110/50 100 Nasal Cannula 2.0 02/26/17 07:21 69 18 100 Nasal Cannula 2.0 02/26/17 07:03 88 20 98 Nasal Cannula 2.0 02/26/17 07:03 99 Nasal Cannula 2.0 02/26/17 07:03 Nasal Cannula 2.0 02/26/17 04:00 74 02/26/17 04:00 97.7 66 18 110/59 100 Nasal Cannula 2.0 02/26/17 03:59 70 18 100 Nasal Cannula 2.0 28 02/26/17 03:49 66 20 98 Nasal Cannula 2.0 28 02/26/17 00:00 97.9 73 20 162/79 100 Nasal Cannula 2.0 02/26/17 00:00 80 02/25/17 23:04 71 18 100 Nasal Cannula 2.0 28 02/25/17 22:49 82 18 97 Nasal Cannula 2.0 28 02/25/17 21:04 73 134/70 02/25/17 20:00 77 02/25/17 19:04 62 18 100 Nasal Cannula 2.0 28 02/25/17 18:54 60 18 99 Nasal Cannula 2.0 28 02/25/17 18:53 99 Nasal Cannula 2.0 28 02/25/17 18:53 Nasal Cannula 2.0 02/25/17 16:00 86 02/25/17 16:00 97.7 73 20 134/70 100 Nasal Cannula 2.0 02/25/17 15:38 97 20 99 Nasal Cannula 2.0 02/25/17 15:28 87 17 99 Nasal Cannula 2.0 02/25/17 12:00 88 02/25/17 12:00 97.2 88 20 137/58 99 Nasal Cannula 2.0 02/25/17 11:02 98 20 99 Nasal Cannula 2.0 02/25/17 10:47 105 20 99 Nasal Cannula 2.0 02/25/17 10:38 97.5 02/25/17 09:39 78 124/67 02/25/17 09:37 78 124/67 02/25/17 09:36 124/67 Intake and Output 02/25/17 02/26/17 19:00 07:00 Intake Total 1480 ml 528 ml Output Total 360 ml 1550 ml Balance 1120 ml -1022 ml Intake Oral 1480 ml 250 ml IV Total 278 ml Output Urine Total 360 ml 1550 ml # Bowel Movements 2 2 Respiratory/Chest: respiratory distress, decreased breath sounds Cardiovascular: normal rate Abdomen: soft, non tender Genitourinary: other - condom cath with gross hematuria Microbiology Date/Time Source Procedure Growth Status 02/23/17 15:00 Blood Blood Culture - Preliminary NO GROWTH AFTER 48 HOURS Resulted 02/23/17 14:57 Blood Blood Culture - Preliminary NO GROWTH AFTER 48 HOURS Resulted 02/24/17 11:20 Indwelling Cath Urine Culture - Preliminary NO GROWTH AFTER 24 HOURS Resulted Laboratory Tests 02/25/17 15:52: Iron Level 30L, Total Iron Binding Capacity 226L, Percent Iron Saturation 13L, Unsaturated Iron Binding 196, Ferritin 215 02/26/17 04:00: White Blood Count 11.3H, Red Blood Count 3.34L, Hemoglobin 8.6L, Hematocrit 28.0L, Mean Corpuscular Volume 84, Mean Corpuscular Hemoglobin 25.8L, Mean Corpuscular Hemoglobin Concent 30.8L, Red Cell Distribution Width 19.3H, Platelet Count 125L, Mean Platelet Volume 8.8, Neutrophils (%) (Auto) , Lymphocytes (%) (Auto) , Monocytes (%) (Auto) , Eosinophils (%) (Auto) , Basophils (%) (Auto) , Sodium Level 139, Potassium Level 4.6, Chloride Level 101 , Carbon Dioxide Level 26, Anion Gap 12, Blood Urea Nitrogen 28H, Creatinine 1.2 , Estimat Glomerular Filtration Rate , Glucose Level 142H, Calcium Level 9.0, Prostate Specific Antigen 15.2H Current Medications Medications (Trade) Dose Ordered Sig/Scot Route PRN Reason Start Time Stop Time Status Last Admin Dose Admin Acetaminophen (Tylenol) 500 mg Q8H PRN ORAL Mild Pain (Pain Scale 1-3) 02/24/17 10:00 03/26/17 09:59 Albuterol/ Ipratropium (DuoNeb 0.5-3(2.5)mg/3ml) 3 ml Q4HRT HHN 02/23/17 23:00 02/28/17 22:59 02/26/17 07:03 Atorvastatin Calcium (Lipitor) 40 mg BEDTIME ORAL 02/24/17 21:00 03/26/17 20:59 02/25/17 21:19 Azithromycin 250 mg 250 mg DAILY ORAL 02/24/17 09:00 03/03/17 08:59 02/25/17 09:35 Ceftriaxone Sodium/Dextrose (Rocephin/D5W) 55 ml @ 110 mls/hr Q24H IVPB 02/23/17 20:00 03/02/17 19:59 02/25/17 20:46 Diltiazem HCl (Cardizem CD) 120 mg Q12HR ORAL 02/24/17 21:00 03/26/17 20:59 02/25/17 21:04 Docusate Sodium (Colace) 250 mg TWICE A DAY ORAL 02/24/17 11:00 03/26/17 10:59 02/25/17 17:47 Doxazosin Mesylate (Cardura) 4 mg QHS ORAL 02/24/17 21:00 03/26/17 20:59 02/25/17 21:04 Ferrous Sulfate (Feosol) 325 mg DAILY ORAL 02/24/17 11:00 03/26/17 10:59 02/25/17 09:39 Finasteride (Proscar) 5 mg DAILY ORAL 02/24/17 11:00 03/26/17 10:59 02/25/17 09:38 Furosemide 80 mg 80 mg BID ORAL 02/25/17 18:00 03/27/17 17:59 02/25/17 17:47 Iron Sucrose/ Sodium Chloride (Venofer/Sodium Chloride) 60 ml @ 240 mls/hr BEDTIME IVPB 02/25/17 21:00 03/01/17 21:14 02/25/17 21:18 Lisinopril (Prinivil) 40 mg DAILY ORAL 02/25/17 09:00 03/27/17 08:59 02/25/17 09:36 Methylprednisolone Sodium Succinate (Solu-MEDROL) 40 mg EVERY 12 HOURS IVP 02/24/17 21:00 03/26/17 20:59 02/25/17 21:04 Metoprolol Succinate (Toprol XL) 50 mg DAILY ORAL 02/24/17 11:00 03/26/17 10:59 02/25/17 09:37 Pantoprazole (Protonix) 40 mg DAILY ORAL 02/24/17 11:00 03/26/17 10:59 02/25/17 09:37 Potassium Chloride (K-Dur) 40 meq TWICE A DAY ORAL 02/24/17 11:00 03/26/17 10:59 02/25/17 17:47 Rivaroxaban (Xarelto) 10 mg DAILY ORAL 02/24/17 12:00 03/26/17 11:59 02/25/17 09:35 Sennosides (Senokot) 17.2 mg DAILY ORAL 02/24/17 11:00 03/26/17 10:59 02/25/17 09:38 Spironolactone (Aldactone) 25 mg DAILY ORAL 02/24/17 11:00 03/26/17 10:59 02/25/17 09:38 Tramadol HCl (Ultram) 50 mg Q6H PRN ORAL Moderate Pain (Pain Scale 4-6) 02/24/17 10:00 03/03/17 09:59 02/25/17 09:36 ERIN ARIAS 13, 2017 09:08
[2017-02-26 09:37] LABS: APPEARANCE,URINE VERY CLOUDY; KETONES,URINE NEGATIVE (NEGATIVE); LEUKOCYTE ESTERASE ,URINE 2+ (NEGATIVE); NITRITE,URINE POSITIVE (NEGATIVE); PH,URINE 5 (4.5-8.0); PROTEIN,URINE 4+ (NEGATIVE); UROBILINOGEN,URINE 1 MG/DL (0.0-1.0)
[2017-02-26 09:39] LABS: BACTERIA,URINE FEW /HPF; RBC,URINE TNTC /HPF (0 - 0); SQUAMOUS EPITHELIAL CELL,UR OCCASIONAL /LPF (NONE/OCC); WBC,URINE 15-20 /HPF (0 - 0)
--- NOTE | 2017-02-26 10:46 | Diagnostic Imaging Report ---
Indication: COPD, shortness of breath Technique: One view of the chest Comparison: 02/23/2017 Findings: The heart is enlarged. Large right-sided pleural effusion persists. Diffuse mostly interstitial disease throughout the right lung persists. Interstitial disease in the left lung appears perhaps slightly improved Right chest pacemaker remains. Findings are unchanged Impression: Perhaps slight improvement of interstitial edema on the left, over 2 days. Otherwise stable, findings as noted
[2017-02-26] MEDS: Diltiazem CD 120mg cap ORAL SCH ×2 (10:58→21:49)
[2017-02-26] MEDS: Solu-MEDROL 40mg Inj IVP SCH ×2 (10:58→21:48)
[2017-02-26] MEDS: Spironolactone 25mg tab ORAL SCH (10:58)
[2017-02-26] MEDS: Furosemide 80mg tab ORAL SCH ×2 (11:00→18:06)
[2017-02-26] MEDS: Lisinopril 20mg tab ORAL SCH (11:01)
[2017-02-26] MEDS: Azithromycin 250mg tab ORAL SCH (11:01)
--- NOTE | 2017-02-26 18:47 | General Progress Note ---
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) ICD Codes: D50.0 - Iron deficiency anemia secondary to blood loss (chronic) SNOMED: 16615929, 514824077 (3) Atrial fibrillation ICD Codes: I48.91 - Atrial fibrillation SNOMED: 29490228 (4) CHF (congestive heart failure), NYHA class II ICD Codes: I50.9 - Heart failure, unspecified SNOMED: 072928223, 272003524 (5) Chronic obstructive asthma with status asthmaticus ICD Codes: J44.9 - Chronic obstructive asthma with status asthmaticus SNOMED: 8594759836251 (6) CHF exacerbation ICD Codes: I50.9 - Heart failure, unspecified SNOMED: 56603933 (7) 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 ICD Codes: I69.922 - 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 SNOMED: 422589185 (8) Hematuria ICD Codes: R31.9 - Hematuria, unspecified SNOMED: 20293702 Assessment/Plan can taper steroids, mobilize, hematuria likely from [place] trauma and anticoagulants--stopped, no significant bladder residual Subjective Constitutional: Reports: weakness HEENT: Reports: no symptoms Cardiovascular: Reports: no symptoms Respiratory: Reports: SOB with excertion Gastrointestinal/Abdominal: Reports: no symptoms Genitourinary: Reports: hematuria Neurologic/Psychiatric: Reports: no symptoms, pre-existing deficit Endocrine: Reports: no symptoms Hematologic/Lymphatic: Reports: anemia Allergies: Coded Allergies: SHELLFISH (Verified Allergy, Unknown, 07/01/11) Subjective less sob, gross hematuria Objective Last 24 Hour Vital Signs Date Time Temp Pulse Resp B/P Pulse Ox O2 Delivery O2 Flow Rate FiO2 02/26/17 16:00 97.9 65 20 112/57 100 Nasal Cannula 2.0 02/26/17 16:00 66 02/26/17 12:00 97.2 60 18 139/81 100 Nasal Cannula 2.0 02/26/17 12:00 71 02/26/17 11:37 73 18 100 Nasal Cannula 2.0 02/26/17 11:27 76 18 98 Nasal Cannula 2.0 02/26/17 11:01 110/50 02/26/17 11:01 64 110/50 02/26/17 10:58 64 110/50 02/26/17 08:00 97.7 64 20 110/50 100 Nasal Cannula 2.0 02/26/17 08:00 60 02/26/17 07:21 69 18 100 Nasal Cannula 2.0 02/26/17 07:03 88 20 98 Nasal Cannula 2.0 02/26/17 07:03 99 Nasal Cannula 2.0 02/26/17 07:03 Nasal Cannula 2.0 02/26/17 04:00 74 02/26/17 04:00 97.7 66 18 110/59 100 Nasal Cannula 2.0 02/26/17 03:59 70 18 100 Nasal Cannula 2.0 28 02/26/17 03:49 66 20 98 Nasal Cannula 2.0 28 02/26/17 00:00 97.9 73 20 162/79 100 Nasal Cannula 2.0 02/26/17 00:00 80 02/25/17 23:04 71 18 100 Nasal Cannula 2.0 28 02/25/17 22:49 82 18 97 Nasal Cannula 2.0 28 02/25/17 21:04 73 134/70 02/25/17 20:00 77 02/25/17 19:04 62 18 100 Nasal Cannula 2.0 28 02/25/17 18:54 60 18 99 Nasal Cannula 2.0 28 02/25/17 18:53 99 Nasal Cannula 2.0 28 02/25/17 18:53 Nasal Cannula 2.0 Intake and Output 02/25/17 02/26/17 19:00 07:00 Intake Total 1480 ml 528 ml Output Total 360 ml 1550 ml Balance 1120 ml -1022 ml Intake Oral 1480 ml 250 ml IV Total 278 ml Output Urine Total 360 ml 1550 ml # Bowel Movements 2 2 Laboratory Tests 02/26/17 04:00: White Blood Count 11.3H, Red Blood Count 3.34L, Hemoglobin 8.6L, Hematocrit 28.0L, Mean Corpuscular Volume 84, Mean Corpuscular Hemoglobin 25.8L, Mean Corpuscular Hemoglobin Concent 30.8L, Red Cell Distribution Width 19.3H, Platelet Count 125L, Mean Platelet Volume 8.8, Neutrophils (%) (Auto) , Lymphocytes (%) (Auto) , Monocytes (%) (Auto) , Eosinophils (%) (Auto) , Basophils (%) (Auto) , Sodium Level 139, Potassium Level 4.6, Chloride Level 101 , Carbon Dioxide Level 26, Anion Gap 12, Blood Urea Nitrogen 28H, Creatinine 1.2 , Estimat Glomerular Filtration Rate , Glucose Level 142H, Calcium Level 9.0, Prostate Specific Antigen 15.2H 02/26/17 09:25: Urine Color Red, Urine Appearance Very cloudy, Urine pH 5, Urine Specific [employer] [place] 1.015, Urine Protein 4+H, Urine Glucose (UA) Negative, Urine Ketones Negative, Urine Occult Blood 5+H, Urine Nitrite PositiveH, Urine Bilirubin Negative, Urine Urobilinogen 1H, Urine Leukocyte Esterase 2+H, Urine RBC TntcH, Urine WBC 15-20H, Urine Squamous Epithelial Cells Occasional, Urine Bacteria Few Height (Feet): 5 Height (Inches): 9.00 Weight (Pounds): 147 General Appearance: no apparent distress EENT: normal ENT inspection Neck: normal alignment Cardiovascular: normal rate Respiratory/Chest: lungs clear, decreased breath sounds Abdomen: non tender, soft Edema: no edema noted Arm (L), no edema noted Arm (R), no edema noted Leg (L), no edema noted Leg (R), no edema noted Pedal (L), no edema noted Pedal (R), no edema noted 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
[2017-02-26] MEDS: cefTRIAXone 1 GM in D5W 55 ML IVPB SCH (21:28)
[2017-02-26] MEDS: Iron Sucrose 100 MG in NS 55 ML IVPB SCH (21:49)
[2017-02-26] MEDS: Doxazosin 4mg tab ORAL SCH (21:49)
[2017-02-27] VITALS: BP 139/65
--- NOTE | 2017-02-27 | Progress Note ---
DATE: 02/26/2017 CARDIOLOGY PROGRESS NOTE SUBJECTIVE: The patient has less congestion. Hematuria noted. Monitored atrial fibrillation with demand pacing. OBJECTIVE: VITAL SIGNS: Blood pressure 112/57, pulse 65, respirations 20, and afebrile. LUNGS: Bilateral breath sounds. Few rales. Irregularly irregular rhythm. Normal S1 and S2. A 1/6 systolic apical murmur. ABDOMEN: Soft. EXTREMITIES: Trace edema. LABORATORY DATA: White count 11.3 and hemoglobin 8.6. Potassium 4.6, BUN 28, and creatinine 1.2. PSA was elevated at 15. Chest x-ray on 02/25/2017 revealed mild improvement in interstitial edema. IMPRESSION: 1. Acute on chronic diastolic and systolic congestive heart failure, improved. 2. Atrial fibrillation, rate controlled. 3. Permanent pacemaker with stable function. 4. Hematuria. 5. Elevated prostate-specific antigen. 6. History of cerebrovascular accident. PLAN: 1. Anticoagulants on hold due to hematuria. 2. Consider resumption once bleeding stops for cardioembolic prophylaxis. 3. Continue diuresis. 4. Transition to oral therapy over the next 24 to 48 hours. 5. Maintain current afterload reduction regimen for blood pressure control and anti-failure benefits. 6. Outpatient evaluation of permanent pacemaker. 7. We will follow. Chay Godinez M.D. DR: PHILLIP JOB#: [id number] CC:
[2017-02-27] MEDS: DuoNeb 0.5-3(2.5)mg/3ml neb HHN SCH ×6 (02:48→23:00)
[2017-02-27 04:00] VITALS: BP 131/67
[2017-02-27 05:35] LABS: MEAN CORPUSCULAR HEMOGLOBIN 25.4 PG (27.0-31.0); MEAN CORPUSCULAR HGB CONC 30.7 G/DL (32.0-36.0); MEAN CORPUSCULAR VOLUME 83 FL (80-99); PLATELET COUNT 131 K/UL (150-450); RED BLOOD COUNT 3.48 M/UL (4.70-6.10); WHITE BLOOD COUNT 12.2 K/UL (4.8-10.8)
[2017-02-27 06:10] LABS: ANION GAP 11 (5-15); CALCIUM 8.8 mg/dL (8.6-10.2); CARBON DIOXIDE 28 mEQ/L (20-30); CHLORIDE 97 mEQ/L (98-107); CREATININE 1.1 mg/dL (0.7-1.2); HEMOLYSIS 1; POTASSIUM 4.5 mEQ/L (3.4-4.9); SODIUM 136 mEQ/L (135-145)
[2017-02-27 07:54] LABS: ANISOCYTOSIS 2+; BAND NEUTROPHILS % (MANUAL) 0 % (0-8); BASOPHILS % (MANUAL) 0 % (0-2); EOSINOPHILS % (MANUAL) 1 % (0-3); HYPOCHROMASIA 2+; LYMPHOCYTES % (MANUAL) 1 % (20-45); NEUTROPHILS % (MANUAL) 94 % (45-75); PLATELET ESTIMATE ADEQUATE; TOTAL CELLS COUNTED 100
[2017-02-27 07:55] LABS: PLATELET MORPHOLOGY NORMAL
[2017-02-27 08:00] VITALS: BP 150/86
[2017-02-27] MEDS: Furosemide 80mg tab ORAL SCH ×2 (08:28→18:06)
[2017-02-27] MEDS: Solu-MEDROL 40mg Inj IVP SCH (08:28)
[2017-02-27] MEDS: Azithromycin 250mg tab ORAL SCH (08:29)
[2017-02-27] MEDS: Lisinopril 20mg tab ORAL SCH (08:29)
[2017-02-27] MEDS: Diltiazem CD 120mg cap ORAL SCH ×2 (08:29→20:59)
[2017-02-27] MEDS: Docusate 250mg cap ORAL SCH ×2 (08:30→18:00)
[2017-02-27] MEDS: Spironolactone 25mg tab ORAL SCH (08:30)
--- NOTE | 2017-02-27 09:33 | Cardiology Report ---
APPROVED REPORT EKG Measurement Heart [id number] VT 290P [id number] poor quality ekg affect interpretation , v pacing , consider repeat ekg
[2017-02-27 12:00] VITALS: BP 142/75
[2017-02-27 16:00] VITALS: BP 137/77
--- NOTE | 2017-02-27 16:13 | General Progress Note ---
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) ICD Codes: D50.0 - Iron deficiency anemia secondary to blood loss (chronic) SNOMED: 61752144, 466578722 (3) Atrial fibrillation ICD Codes: I48.91 - Atrial fibrillation SNOMED: 50375030 (4) CHF (congestive heart failure), NYHA class II ICD Codes: I50.9 - Heart failure, unspecified SNOMED: 993389665, 883868633 (5) Chronic obstructive asthma with status asthmaticus ICD Codes: J44.9 - Chronic obstructive asthma with status asthmaticus SNOMED: 4076019483730 (6) CHF exacerbation ICD Codes: I50.9 - Heart failure, unspecified SNOMED: 37629931 (7) 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 ICD Codes: I69.922 - 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 SNOMED: 254880005 (8) Hematuria ICD Codes: R31.9 - Hematuria, unspecified SNOMED: 32051659 (9) Rectal bleed ICD Codes: K62.5 - Hemorrhage of anus and rectum SNOMED: 79630522 Assessment/Plan can taper steroids, mobilize, hematuria likely from [place] trauma and anticoagulants--stopped, no significant bladder residual, needs mobilization Subjective Constitutional: Reports: weakness HEENT: Reports: no symptoms Cardiovascular: Reports: no symptoms Respiratory: Reports: shortness of breath Gastrointestinal/Abdominal: Reports: other Genitourinary: Reports: hematuria Neurologic/Psychiatric: Reports: no symptoms Endocrine: Reports: no symptoms Hematologic/Lymphatic: Reports: anemia Allergies: Coded Allergies: SHELLFISH (Verified Allergy, Unknown, 07/01/11) Subjective less sob, gross hematuria clearing, scant blood per rectum Objective Last 24 Hour Vital Signs Date Time Temp Pulse Resp B/P Pulse Ox O2 Delivery O2 Flow Rate FiO2 02/27/17 14:24 76 16 100 Nasal Cannula 2.0 28 02/27/17 14:18 76 16 98 Nasal Cannula 2.0 28 02/27/17 12:00 96.5 64 18 142/75 97 Nasal Cannula 2.0 02/27/17 12:00 79 02/27/17 11:05 74 14 98 Nasal Cannula 2.0 28 02/27/17 08:30 78 150/86 02/27/17 08:29 150/86 02/27/17 08:29 78 150/86 02/27/17 08:00 76 02/27/17 08:00 97.9 78 22 150/86 97 Nasal Cannula 2.0 02/27/17 07:18 79 16 100 Nasal Cannula 2.0 02/27/17 07:08 Nasal Cannula 2.0 02/27/17 07:08 98 Nasal Cannula 2.0 02/27/17 07:08 74 14 98 Nasal Cannula 2.0 02/27/17 04:00 98.4 65 22 131/67 99 Nasal Cannula 2.0 02/27/17 03:23 75 02/27/17 02:52 88 18 100 Nasal Cannula 2.0 02/27/17 02:51 85 18 98 Nasal Cannula 2.0 02/27/17 00:00 97.6 66 20 139/65 94 2.0 02/26/17 23:57 68 02/26/17 23:15 87 18 100 Nasal Cannula 2.0 02/26/17 22:57 87 18 98 Nasal Cannula 2.0 02/26/17 21:49 62 119/58 02/26/17 20:34 97.6 62 20 119/58 100 2.0 02/26/17 20:00 97.6 62 20 119/58 100 Nasal Cannula 2.0 02/26/17 19:19 72 18 100 Nasal Cannula 2.0 02/26/17 19:12 64 02/26/17 19:11 82 18 97 Nasal Cannula 2.0 02/26/17 19:11 99 Nasal Cannula 2.0 02/26/17 19:11 Nasal Cannula 2.0 Intake and Output 02/26/17 02/27/17 19:00 07:00 Intake Total 1100 ml 450 ml Output Total 781 ml 1500 ml Balance 319 ml -1050 ml Intake Oral 1100 ml 100 ml IV Total 350 ml Output Urine Total 780 ml 1500 ml Stool Total 1 ml # Bowel Movements 2 Laboratory Tests 02/27/17 03:30: White Blood Count 12.2H, Red Blood Count 3.48L, Hemoglobin 8.9L, Hematocrit 28.8L, Mean Corpuscular Volume 83, Mean Corpuscular Hemoglobin 25.4L, Mean Corpuscular Hemoglobin Concent 30.7L, Red Cell Distribution Width 19.0H, Platelet Count 131L, Mean Platelet Volume 8.0, Neutrophils (%) (Auto) , Lymphocytes (%) (Auto) , Monocytes (%) (Auto) , Eosinophils (%) (Auto) , Basophils (%) (Auto) , Differential Total Cells Counted 100, Neutrophils % ( Manual) 94H, Lymphocytes % (Manual) 1L, Monocytes % (Manual) 4, Eosinophils % ( Manual) 1, Basophils % (Manual) 0, Band Neutrophils 0, Platelet Estimate Adequate, Platelet Morphology Normal, Hypochromasia 2+, Anisocytosis 2+, Sodium Level 136, Potassium Level 4.5, Chloride Level 97L, Carbon Dioxide Level 28, Anion Gap 11, Blood Urea Nitrogen 30H, Creatinine 1.1, Estimat Glomerular Filtration Rate , Glucose Level 167H, Calcium Level 8.8 Height (Feet): 5 Height (Inches): 9.00 Weight (Pounds): 143 General Appearance: no apparent distress, alert EENT: normal ENT inspection Neck: normal alignment Cardiovascular: normal rate, regular rhythm Respiratory/Chest: lungs clear, normal breath sounds, no respiratory distress, decreased breath sounds Abdomen: soft, no organomegaly Neurologic: other - dysarthric HODAN GAYTAN Feb 27, 2017 16:12
--- NOTE | 2017-02-27 17:24 | Pulmonology Progress Note ---
Assessment/Plan Assessment/Plan 1. Decompensated heart failure. 2. Chronic obstructive pulmonary disease exacerbation. 3. Abdominal pain 4. UTI 5. hx of prostate CA 6. Expressive aphasia 7. Anemia 8. Gross hematuria agree w taper steroids called Dr Rubalcava, may need urology eval cont HHN, abx, diuresis Subjective Respiratory: Reports: dry cough Genitourinary: Reports: hematuria Allergies: Coded Allergies: SHELLFISH (Verified Allergy, Unknown, 07/01/11) Objective Last 24 Hour Vital Signs Date Time Temp Pulse Resp B/P Pulse Ox O2 Delivery O2 Flow Rate FiO2 02/27/17 16:00 97.2 63 20 137/77 98 Nasal Cannula 2.0 02/27/17 16:00 97.2 02/27/17 14:24 76 16 100 Nasal Cannula 2.0 28 02/27/17 14:18 76 16 98 Nasal Cannula 2.0 28 02/27/17 12:00 96.5 64 18 142/75 97 Nasal Cannula 2.0 02/27/17 12:00 79 02/27/17 11:05 74 14 98 Nasal Cannula 2.0 02/27/17 08:30 78 150/86 02/27/17 08:29 150/86 02/27/17 08:29 78 150/86 02/27/17 08:00 76 02/27/17 08:00 97.9 78 22 150/86 97 Nasal Cannula 2.0 02/27/17 07:18 79 16 100 Nasal Cannula 2.0 28 02/27/17 07:08 Nasal Cannula 2.0 02/27/17 07:08 98 Nasal Cannula 2.0 02/27/17 07:08 74 14 98 Nasal Cannula 2.0 28 02/27/17 04:00 98.4 65 22 131/67 99 Nasal Cannula 2.0 02/27/17 03:23 75 02/27/17 02:52 88 18 100 Nasal Cannula 2.0 28 02/27/17 02:51 85 18 98 Nasal Cannula 2.0 28 02/27/17 00:00 97.6 66 20 139/65 94 2.0 02/26/17 23:57 68 02/26/17 23:15 87 18 100 Nasal Cannula 2.0 28 02/26/17 22:57 87 18 98 Nasal Cannula 2.0 28 02/26/17 21:49 62 119/58 02/26/17 20:34 97.6 62 20 119/58 100 2.0 02/26/17 20:00 97.6 62 20 119/58 100 Nasal Cannula 2.0 02/26/17 19:19 72 18 100 Nasal Cannula 2.0 28 02/26/17 19:12 64 02/26/17 19:11 82 18 97 Nasal Cannula 2.0 28 02/26/17 19:11 99 Nasal Cannula 2.0 28 02/26/17 19:11 Nasal Cannula 2.0 Intake and Output 02/26/17 02/27/17 19:00 07:00 Intake Total 1100 ml 450 ml Output Total 781 ml 1500 ml Balance 319 ml -1050 ml Intake Oral 1100 ml 100 ml IV Total 350 ml Output Urine Total 780 ml 1500 ml Stool Total 1 ml # Bowel Movements 2 General Appearance: no acute distress, cachetic HEENT: anicteric Respiratory/Chest: lungs clear, decreased breath sounds Cardiovascular: tachycardia Genitourinary: other - condom cath Microbiology Date/Time Source Procedure Growth Status 02/26/17 09:25 External Cath Urine Culture - Preliminary NO GROWTH Resulted Laboratory Tests 02/27/17 03:30: White Blood Count 12.2H, Red Blood Count 3.48L, Hemoglobin 8.9L, Hematocrit 28.8L, Mean Corpuscular Volume 83, Mean Corpuscular Hemoglobin 25.4L, Mean Corpuscular Hemoglobin Concent 30.7L, Red Cell Distribution Width 19.0H, Platelet Count 131L, Mean Platelet Volume 8.0, Neutrophils (%) (Auto) , Lymphocytes (%) (Auto) , Monocytes (%) (Auto) , Eosinophils (%) (Auto) , Basophils (%) (Auto) , Differential Total Cells Counted 100, Neutrophils % ( Manual) 94H, Lymphocytes % (Manual) 1L, Monocytes % (Manual) 4, Eosinophils % ( Manual) 1, Basophils % (Manual) 0, Band Neutrophils 0, Platelet Estimate Adequate, Platelet Morphology Normal, Hypochromasia 2+, Anisocytosis 2+, Sodium Level 136, Potassium Level 4.5, Chloride Level 97L, Carbon Dioxide Level 28, Anion Gap 11, Blood Urea Nitrogen 30H, Creatinine 1.1, Estimat Glomerular Filtration Rate , Glucose Level 167H, Calcium Level 8.8 Current Medications Medications (Trade) Dose Ordered Sig/Scot Route PRN Reason Start Time Stop Time Status Last Admin Dose Admin Acetaminophen (Tylenol) 500 mg Q8H PRN ORAL Mild Pain (Pain Scale 1-3) 02/24/17 10:00 03/26/17 09:59 02/27/17 15:07 Albuterol/ Ipratropium (DuoNeb 0.5-3(2.5)mg/3ml) 3 ml Q4HRT HHN 02/23/17 23:00 02/28/17 22:59 02/27/17 14:18 Atorvastatin Calcium (Lipitor) 40 mg BEDTIME ORAL 02/24/17 21:00 03/26/17 20:59 02/26/17 21:49 Azithromycin (Zithromax) 250 mg DAILY ORAL 02/24/17 09:00 03/03/17 08:59 02/27/17 08:29 Diltiazem HCl (Cardizem CD) 120 mg Q12HR ORAL 02/24/17 21:00 03/26/17 20:59 02/27/17 08:29 Docusate Sodium (Colace) 250 mg TWICE A DAY ORAL 02/24/17 11:00 03/26/17 10:59 02/26/17 18:05 Doxazosin Mesylate (Cardura) 4 mg QHS ORAL 02/24/17 21:00 03/26/17 20:59 02/26/17 21:49 Ferrous Sulfate (Feosol) 325 mg DAILY ORAL 02/24/17 11:00 03/26/17 10:59 02/27/17 08:30 Finasteride (Proscar) 5 mg DAILY ORAL 02/24/17 11:00 03/26/17 10:59 02/27/17 08:29 Furosemide 80 mg 80 mg BID ORAL 02/25/17 18:00 03/27/17 17:59 02/27/17 08:28 Iron Sucrose/ Sodium Chloride (Venofer/Sodium Chloride) 60 ml @ 240 mls/hr BEDTIME IVPB 02/25/17 21:00 03/01/17 21:14 02/26/17 21:49 Lisinopril (Prinivil) 40 mg DAILY ORAL 02/25/17 09:00 03/27/17 08:59 02/27/17 08:29 Metoprolol Succinate (Toprol XL) 50 mg DAILY ORAL 02/24/17 11:00 03/26/17 10:59 02/27/17 08:30 Pantoprazole (Protonix) 40 mg DAILY ORAL 02/24/17 11:00 03/26/17 10:59 02/27/17 08:30 Potassium Chloride (K-Dur) 40 meq TWICE A DAY ORAL 02/24/17 11:00 03/26/17 10:59 02/27/17 08:30 Prednisone (predniSONE) 20 mg DAILY ORAL 02/28/17 09:00 03/30/17 08:59 Sennosides (Senokot) 17.2 mg DAILY ORAL 02/24/17 11:00 03/26/17 10:59 02/27/17 08:29 Spironolactone (Aldactone) 25 mg DAILY ORAL 02/24/17 11:00 03/26/17 10:59 02/27/17 08:30 Tramadol HCl (Ultram) 50 mg Q6H PRN ORAL Moderate Pain (Pain Scale 4-6) 02/24/17 10:00 03/03/17 09:59 02/25/17 09:36 ERIN ARIAS Feb 27, 2017 17:24
[2017-02-27] MEDS ORDERED: Acetaminophen 500mg (ES) tab ORAL PRN (18:00)
[2017-02-27 20:00] VITALS: BP_SYST 137; BP_SYST 139; BP_DIAS 74; BP_DIAS 77
[2017-02-27] MEDS: Doxazosin 4mg tab ORAL SCH (20:59)
[2017-02-27] MEDS: Iron Sucrose 100 MG in NS 55 ML IVPB SCH (21:01)
[2017-02-28] VITALS: BP 133/70
--- NOTE | 2017-02-28 02:15 | Progress Note ---
DATE: 02/27/2017 CARDIOLOGY PROGRESS NOTE SUBJECTIVE: The patient is off anticoagulants. Hematuria has decreased. There is scant bleeding noted per rectum according to staff. The patient's shortness of breath is improving. Monitored rhythm, atrial fibrillation with demand pacing. OBJECTIVE: VITAL SIGNS: Blood pressure 142/75, pulse 64, respirations 18, and afebrile. LUNGS: Coarse breath sounds. Few rales. HEART: Irregularly irregular rhythm. Normal S1 and S2. ABDOMEN: Soft. EXTREMITIES: There is no edema. LABORATORY DATA: White count 12.2 and hemoglobin 8.9. BUN 30 and creatinine 1.1. Potassium 4.5. IMPRESSION: 1. Acute on chronic systolic and diastolic congestive heart failure. 2. Paroxysmal atrial fibrillation. 3. Permanent pacemaker. 4. Chronic obstructive pulmonary disease exacerbation. 5. Paroxysmal bronchospasm. 6. Hematuria, possibly due to [place] related trauma. 7. 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 8. Urinary tract infection. PLAN: 1. Hold anticoagulation. Once bleeding resolves, we may reconsider resumption of Xarelto for cardioembolic prophylaxis. 2. Steroid taper. 3. Inhaled bronchodilators. 4. Titrate diuretics based on clinical parameters. 5. Outpatient pacemaker interrogation. Chay Godinez M.D. DR: PHILLIP JOB#: [id number] CC:
[2017-02-28] MEDS: DuoNeb 0.5-3(2.5)mg/3ml neb HHN SCH ×6 (03:14→23:58)
[2017-02-28 04:00] VITALS: BP 117/48
[2017-02-28] MEDS: traMADol 50mg tab ORAL PRN (06:18)
[2017-02-28 06:45] LABS: ANION GAP 10 (5-15); CALCIUM 8.8 mg/dL (8.6-10.2); CARBON DIOXIDE 32 mEQ/L (20-30); CHLORIDE 96 mEQ/L (98-107); CREATININE 1.1 mg/dL (0.7-1.2); HEMOLYSIS 0; POTASSIUM 4.6 mEQ/L (3.4-4.9); SODIUM 138 mEQ/L (135-145)
[2017-02-28 07:00] LABS: MEAN CORPUSCULAR HEMOGLOBIN 26.6 PG (27.0-31.0); MEAN CORPUSCULAR HGB CONC 32.6 G/DL (32.0-36.0); MEAN CORPUSCULAR VOLUME 82 FL (80-99); MEAN PLATELET VOLUME 7.2 FL (6.5-10.1); PLATELET COUNT 121 K/UL (150-450); RED BLOOD COUNT 3.38 M/UL (4.70-6.10); RED CELL DISTRIBUTION WIDTH 18.6 % (11.6-14.8); WHITE BLOOD COUNT 10.2 K/UL (4.8-10.8)
[2017-02-28 08:00] VITALS: BP 136/61
[2017-02-28] MEDS ORDERED: PredniSONE 20mg tab ORAL SCH (09:00)
[2017-02-28] MEDS: Furosemide 80mg tab ORAL SCH ×2 (09:31→17:14)
[2017-02-28] MEDS: Lisinopril 20mg tab ORAL SCH (09:31)
[2017-02-28] MEDS: Spironolactone 25mg tab ORAL SCH (09:32)
[2017-02-28] MEDS: PredniSONE 20mg tab ORAL SCH (09:32)
[2017-02-28] MEDS: Azithromycin 250mg tab ORAL SCH (09:34)
[2017-02-28] MEDS: Docusate 250mg cap ORAL SCH ×2 (09:35→17:15)
[2017-02-28] MEDS: Diltiazem CD 120mg cap ORAL SCH ×2 (09:35→21:09)
[2017-02-28 10:23] LABS: ANISOCYTOSIS 1+; BAND NEUTROPHILS % (MANUAL) 0 % (0-8); BASOPHILS % (MANUAL) 0 % (0-2); EOSINOPHILS % (MANUAL) 0 % (0-3); HYPOCHROMASIA 1+; LYMPHOCYTES % (MANUAL) 9 % (20-45); NEUTROPHILS % (MANUAL) 83 % (45-75); PLATELET ESTIMATE DECREASED; PLATELET MORPHOLOGY NORMAL; TOTAL CELLS COUNTED 100
[2017-02-28 12:15] VITALS: BP 120/62
--- NOTE | 2017-02-28 15:45 | Pulmonology Progress Note ---
Assessment/Plan Assessment/Plan 1. Decompensated heart failure. 2. Chronic obstructive pulmonary disease exacerbation. 3. Abdominal pain 4. UTI 5. hx of prostate CA 6. Expressive aphasia 7. Anemia 8. Gross hematuria cont to c/o abd pain needs PT to mobilize taper steroids cont HHN, abx, diuresis Subjective Gastrointestinal/Abdominal: Reports: other - pain Allergies: Coded Allergies: SHELLFISH (Verified Allergy, Unknown, 07/01/11) Objective Last 24 Hour Vital Signs Date Time Temp Pulse Resp B/P Pulse Ox O2 Delivery O2 Flow Rate FiO2 02/28/17 14:35 71 16 97 Nasal Cannula 2.0 02/28/17 14:31 69 16 93 Nasal Cannula 2.0 02/28/17 12:15 97.5 62 18 120/62 95 Nasal Cannula 02/28/17 10:36 Nasal Cannula 2.0 02/28/17 10:35 66 16 93 Nasal Cannula 2.0 02/28/17 09:35 67 136/61 02/28/17 09:33 67 136/61 02/28/17 09:31 136/61 02/28/17 08:00 96.3 67 18 136/61 95 Nasal Cannula 02/28/17 06:39 70 16 96 Nasal Cannula 2.0 02/28/17 06:37 28 02/28/17 06:34 Nasal Cannula 2.0 02/28/17 06:34 69 16 92 Nasal Cannula 2.0 02/28/17 06:34 92 Nasal Cannula 2.0 02/28/17 04:00 97.3 63 18 117/48 94 Nasal Cannula 2.0 02/28/17 03:23 63 20 95 Nasal Cannula 2.0 02/28/17 03:16 28 02/28/17 03:15 67 22 93 Nasal Cannula 2.0 02/28/17 00:00 97.9 73 20 133/70 95 Nasal Cannula 2.0 02/27/17 23:49 Nasal Cannula 02/27/17 23:48 Nasal Cannula 02/27/17 20:59 65 139/74 02/27/17 20:26 65 18 97 Nasal Cannula 2.0 02/27/17 20:20 28 02/27/17 20:19 63 18 95 Nasal Cannula 2.0 02/27/17 20:18 Nasal Cannula 2.0 28 02/27/17 20:17 95 Nasal Cannula 2.0 28 02/27/17 20:00 97.2 63 20 137/77 98 Nasal Cannula 2.0 28 02/27/17 16:00 97.2 63 20 137/77 98 Nasal Cannula 2.0 02/27/17 16:00 97.2 Intake and Output 02/27/17 02/28/17 19:00 07:00 Intake Total 300 ml 180 ml Output Total 1850 ml 2200 ml Balance -1550 ml -2020 ml Intake Oral 300 ml 120 ml IV Total 60 ml Output Urine Total 1850 ml 2200 ml General Appearance: no acute distress Respiratory/Chest: expiratory wheezing Cardiovascular: irregularly irregular Abdomen: soft, non tender Microbiology Date/Time Source Procedure Growth Status 02/26/17 09:25 External Cath Urine Culture - Preliminary NO GROWTH AFTER 24 HOURS Resulted Laboratory Tests 02/28/17 05:05: White Blood Count 10.2, Red Blood Count 3.38L, Hemoglobin 9.0L, Hematocrit 27.6L , Mean Corpuscular Volume 82, Mean Corpuscular Hemoglobin 26.6L, Mean Corpuscular Hemoglobin Concent 32.6, Red Cell Distribution Width 18.6H, Platelet Count 121L, Mean Platelet Volume 7.2, Neutrophils (%) (Auto) , Lymphocytes (%) (Auto) , Monocytes (%) (Auto) , Eosinophils (%) (Auto) , Basophils (%) (Auto) , Differential Total Cells Counted 100, Neutrophils % ( Manual) 83H, Lymphocytes % (Manual) 9L, Monocytes % (Manual) 8, Eosinophils % ( Manual) 0, Basophils % (Manual) 0, Band Neutrophils 0, Platelet Estimate DecreasedL, Platelet Morphology Normal, Hypochromasia 1+, Anisocytosis 1+, Sodium Level 138, Potassium Level 4.6, Chloride Level 96L, Carbon Dioxide Level 32H, Anion Gap 10, Blood Urea Nitrogen 31H, Creatinine 1.1, Estimat Glomerular Filtration Rate , Glucose Level 108H, Calcium Level 8.8 Current Medications Medications (Trade) Dose Ordered Sig/Scot Route PRN Reason Start Time Stop Time Status Last Admin Dose Admin Acetaminophen (Tylenol) 500 mg Q8H PRN ORAL Mild Pain (Pain Scale 1-3) 02/27/17 18:00 03/29/17 17:59 Albuterol/ Ipratropium (DuoNeb 0.5-3(2.5)mg/3ml) 3 ml Q4HRT HHN 02/27/17 19:00 03/04/17 18:59 02/28/17 14:31 Atorvastatin Calcium (Lipitor) 40 mg BEDTIME ORAL 02/27/17 21:00 03/29/17 20:59 02/27/17 20:59 Azithromycin (Zithromax) 250 mg DAILY ORAL 02/28/17 09:00 03/02/17 08:59 02/28/17 09:34 Diltiazem HCl (Cardizem CD) 120 mg Q12HR ORAL 02/27/17 21:00 03/29/17 20:59 02/28/17 09:35 Docusate Sodium (Colace) 250 mg TWICE A DAY ORAL 02/27/17 18:00 03/29/17 17:59 Doxazosin Mesylate (Cardura) 4 mg QHS ORAL 02/27/17 21:00 03/29/17 20:59 02/27/17 20:59 Ferrous Sulfate (Feosol) 325 mg DAILY ORAL 02/28/17 09:00 03/30/17 08:59 02/28/17 09:34 Finasteride (Proscar) 5 mg DAILY ORAL 02/28/17 09:00 03/30/17 08:59 02/28/17 09:33 Furosemide (Lasix) 80 mg BID ORAL 02/27/17 18:00 03/29/17 17:59 02/28/17 09:31 Iron Sucrose/ Sodium Chloride (Venofer/Sodium Chloride) 60 ml @ 240 mls/hr BEDTIME IVPB 02/27/17 21:00 03/01/17 21:01 02/27/17 21:01 Lisinopril (Prinivil) 40 mg DAILY ORAL 02/28/17 09:00 03/30/17 08:59 02/28/17 09:31 Metoprolol Succinate (Toprol XL) 50 mg DAILY ORAL 02/28/17 09:00 03/30/17 08:59 02/28/17 09:33 Pantoprazole (Protonix) 40 mg DAILY ORAL 02/28/17 09:00 03/30/17 08:59 02/28/17 09:34 Potassium Chloride (K-Dur) 40 meq TWICE A DAY ORAL 02/27/17 18:00 03/29/17 17:59 02/28/17 09:34 Prednisone (predniSONE) 20 mg DAILY ORAL 02/28/17 09:00 03/30/17 08:59 02/28/17 09:32 Sennosides (Senokot) 17.2 mg DAILY ORAL 02/28/17 09:00 03/30/17 08:59 Spironolactone (Aldactone) 25 mg DAILY ORAL 02/28/17 09:00 03/30/17 08:59 02/28/17 09:32 Tramadol HCl (Ultram) 50 mg Q6H PRN ORAL Moderate Pain (Pain Scale 4-6) 02/27/17 22:00 03/06/17 21:59 02/28/17 06:18 ERIN ARIAS Feb 28, 2017 15:45
[2017-02-28 16:00] VITALS: BP 118/56
--- NOTE | 2017-02-28 17:51 | General Progress Note ---
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) ICD Codes: D50.0 - Iron deficiency anemia secondary to blood loss (chronic) SNOMED: 68097496, 998154046 (3) Atrial fibrillation ICD Codes: I48.91 - Atrial fibrillation SNOMED: 27528483 (4) CHF (congestive heart failure), NYHA class II ICD Codes: I50.9 - Heart failure, unspecified SNOMED: 328846547, 086566769 (5) Chronic obstructive asthma with status asthmaticus ICD Codes: J44.9 - Chronic obstructive asthma with status asthmaticus SNOMED: 5598213613479 (6) CHF exacerbation ICD Codes: I50.9 - Heart failure, unspecified SNOMED: 99442512 (7) 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 ICD Codes: I69.922 - 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 SNOMED: 556395429 (8) Hematuria ICD Codes: R31.9 - Hematuria, unspecified SNOMED: 16443165 (9) Rectal bleed ICD Codes: K62.5 - Hemorrhage of anus and rectum SNOMED: 33760713 Assessment/Plan can taper steroids, mobilize, hematuria likely from [place] trauma and anticoagulants--stopped, no significant bladder residual, needs mobilization Subjective Constitutional: Reports: weakness HEENT: Reports: no symptoms Cardiovascular: Reports: no symptoms Respiratory: Reports: SOB with excertion Gastrointestinal/Abdominal: Reports: no symptoms Genitourinary: Reports: hematuria Neurologic/Psychiatric: Reports: pre-existing deficit Endocrine: Reports: no symptoms Allergies: Coded Allergies: SHELLFISH (Verified Allergy, Unknown, 07/01/11) Subjective less sob, gross hematuria clearing, scant blood per rectum, weak and maxc assist to walk, need PT rehab Objective Last 24 Hour Vital Signs Date Time Temp Pulse Resp B/P Pulse Ox O2 Delivery O2 Flow Rate FiO2 02/28/17 16:00 98.1 69 19 118/56 80 Nasal Cannula 2.0 02/28/17 14:35 71 16 97 Nasal Cannula 2.0 28 02/28/17 14:31 69 16 93 Nasal Cannula 2.0 28 02/28/17 12:15 97.5 62 18 120/62 95 Nasal Cannula 02/28/17 10:36 Nasal Cannula 2.0 02/28/17 10:35 66 16 93 Nasal Cannula 2.0 02/28/17 09:35 67 136/61 02/28/17 09:33 67 136/61 02/28/17 09:31 136/61 02/28/17 08:00 96.3 67 18 136/61 95 Nasal Cannula 02/28/17 06:39 70 16 96 Nasal Cannula 2.0 02/28/17 06:37 28 02/28/17 06:34 Nasal Cannula 2.0 02/28/17 06:34 69 16 92 Nasal Cannula 2.0 02/28/17 06:34 92 Nasal Cannula 2.0 02/28/17 04:00 97.3 63 18 117/48 94 Nasal Cannula 2.0 02/28/17 03:23 63 20 95 Nasal Cannula 2.0 02/28/17 03:16 28 02/28/17 03:15 67 22 93 Nasal Cannula 2.0 02/28/17 00:00 97.9 73 20 133/70 95 Nasal Cannula 2.0 02/27/17 23:49 Nasal Cannula 02/27/17 23:48 Nasal Cannula 02/27/17 20:59 65 139/74 02/27/17 20:26 65 18 97 Nasal Cannula 2.0 28 02/27/17 20:20 28 02/27/17 20:19 63 18 95 Nasal Cannula 2.0 02/27/17 20:18 Nasal Cannula 2.0 28 02/27/17 20:17 95 Nasal Cannula 2.0 02/27/17 20:00 97.2 63 20 137/77 98 Nasal Cannula 2.0 28 Intake and Output 02/27/17 02/28/17 19:00 07:00 Intake Total 300 ml 180 ml Output Total 1850 ml 2200 ml Balance -1550 ml -2020 ml Intake Oral 300 ml 120 ml IV Total 60 ml Output Urine Total 1850 ml 2200 ml Laboratory Tests 02/28/17 05:05: White Blood Count 10.2, Red Blood Count 3.38L, Hemoglobin 9.0L, Hematocrit 27.6L , Mean Corpuscular Volume 82, Mean Corpuscular Hemoglobin 26.6L, Mean Corpuscular Hemoglobin Concent 32.6, Red Cell Distribution Width 18.6H, Platelet Count 121L, Mean Platelet Volume 7.2, Neutrophils (%) (Auto) , Lymphocytes (%) (Auto) , Monocytes (%) (Auto) , Eosinophils (%) (Auto) , Basophils (%) (Auto) , Differential Total Cells Counted 100, Neutrophils % ( Manual) 83H, Lymphocytes % (Manual) 9L, Monocytes % (Manual) 8, Eosinophils % ( Manual) 0, Basophils % (Manual) 0, Band Neutrophils 0, Platelet Estimate DecreasedL, Platelet Morphology Normal, Hypochromasia 1+, Anisocytosis 1+, Sodium Level 138, Potassium Level 4.6, Chloride Level 96L, Carbon Dioxide Level 32H, Anion Gap 10, Blood Urea Nitrogen 31H, Creatinine 1.1, Estimat Glomerular Filtration Rate , Glucose Level 108H, Calcium Level 8.8 Height (Feet): 5 Height (Inches): 9.00 Weight (Pounds): 138 HODAN GAYTAN Feb 28, 2017 17:50
--- NOTE | 2017-02-28 20:30 | Progress Note ---
DATE: 02/28/2017 CARDIOLOGY PROGRESS NOTE: SUBJECTIVE: The patient is less congested and more alert. OBJECTIVE: VITAL SIGNS: Blood pressure is 128/66, pulse rate 63, respiratory rate 18, and afebrile. Atrial fibrillation with demand pacing. Blood pressure is 120/62, pulse rate 62, respiratory rate 18, and oxygen saturation 95% on two liters. CHEST: Few rhonchi. HEART: Irregularly irregular rhythm. Normal S1 and S2. ABDOMEN: Soft. EXTREMITIES: No edema. LABORATORY DATA: Sodium is 138, potassium 4.6, bicarbonate 32, BUN 31, and creatinine 1.1. White count is 10.2 and hemoglobin 9. IMPRESSION: 1. Acute on chronic systolic and diastolic congestive heart failure, improving. 2. Paroxysmal atrial fibrillation, rate controlled. 3. Permanent pacemaker with stable function. 4. Chronic obstructive pulmonary disease exacerbation with no active bronchospasm. 5. Hematuria, resolved. 6. Cerebrovascular disease with aphasia and hemiparesis. PLAN: 1. Consider resumption of anticoagulation as bleeding has stooped and was likely due to Reyes trauma. This is for cardioembolic prophylaxis. 2. Continue steroid taper, per route relief driver. 3. Transition from IV to oral maintenance diuretic dosing. 4. We will schedule for outpatient pacemaker interrogation and cardiac followup. Chay Godinez M.D. DR: Kathy JOB#: [id number] CC:
[2017-02-28 20:35] VITALS: BP 141/66
[2017-02-28] MEDS: Doxazosin 4mg tab ORAL SCH (21:09)
[2017-02-28] MEDS: Iron Sucrose 100 MG in NS 55 ML IVPB SCH (21:09)
--- NOTE | 2017-02-28 21:48 | Wound Care Consultation ---
Wound Assessment Wound Assessment #1: Wound Present on Admission: No New Wound: Yes Status Change of Wound: No Wound Location Body Site: perineal area Wound Type: chemical burn - with erosion Krissy Test: Does not Krissy Wound Thickness: Partial Thickness Percent of Wound Turley/Red: 100 Wound Drainage Description: Serosanguineous Wound Drainage Amount: Scant Wound Drainage Odor: None/Absent Tissue Surrounding Wound: Erythemic Wound General Appearance: Reddened Wound Assessment #2: Wound Number: #2 Wound Present on Admission: Yes New Wound: No Status Change of Wound: No Wound Location Body Site Modif: left, right, lower Wound Location Body Site: leg Wound Type: other - dryness Wound Drainage Amount: None Wound Drainage Odor: None/Absent Tissue Surrounding Wound: Intact Wound General Appearance: Asymptomatic, Open to air Wound Comment #1 Perineal chemical burn with erosion #2 Left and right lower legs with dry and flaky skin Recommendation -Perineal area chemical burn with erosion Cleanse with saline, pat dry, apply Triad cream and leave area open to air BID and PRN soiled -Keep clean and dry -Turn and reposition -Optimize nutrition -Apply A&D ointment on both lower legs daily -Offload both heels -Heel protector on both heels -Assess and f/u accordingly for any changes TAMMIE DONALDSON RN Feb 28, 2017 21:48
[2017-03-01] MEDS: Vitamin A&D Oint 2oz Tube TOPIC SCH ×2 (00:10→09:41)
[2017-03-01 00:31] VITALS: BP 117/67
[2017-03-01] MEDS: DuoNeb 0.5-3(2.5)mg/3ml neb HHN SCH ×4 (03:00→15:00)
[2017-03-01 04:46] VITALS: BP 116/93
[2017-03-01] MEDS: traMADol 50mg tab ORAL PRN ×2 (04:51→14:52)
[2017-03-01 08:02] VITALS: BP 143/64
[2017-03-01] MEDS: Furosemide 80mg tab ORAL SCH (09:42)
[2017-03-01] MEDS: Diltiazem CD 120mg cap ORAL SCH (09:43)
[2017-03-01] MEDS: Spironolactone 25mg tab ORAL SCH (09:43)
[2017-03-01] MEDS: Docusate 250mg cap ORAL SCH (09:44)
[2017-03-01] MEDS: Azithromycin 250mg tab ORAL SCH (09:45)
[2017-03-01] MEDS: Lisinopril 20mg tab ORAL SCH (09:45)
[2017-03-01] MEDS: PredniSONE 20mg tab ORAL SCH (09:45)
[2017-03-01 11:04] VITALS: BP 112/57
--- NOTE | 2017-03-01 12:48 | Pulmonology Progress Note ---
Assessment/Plan Assessment/Plan 1. Decompensated heart failure. 2. Chronic obstructive pulmonary disease exacerbation. 3. Abdominal pain 4. UTI 5. hx of prostate CA 6. Expressive aphasia 7. Anemia 8. Gross hematuria cont to c/o abd pain needs PT to mobilize taper steroids cont HHN, abx, diuresis Subjective Interval Events: No new events Constitutional: Reports: no symptoms HEENT: Repors: no symptoms Respiratory: Reports: dry cough, dyspnea on exertion Cardiovascular: Reports: no symptoms Gastrointestinal/Abdominal: Reports: no symptoms Genitourinary: Reports: no symptoms Allergies: Coded Allergies: SHELLFISH (Verified Allergy, Unknown, 07/01/11) Objective Last 24 Hour Vital Signs Date Time Temp Pulse Resp B/P Pulse Ox O2 Delivery O2 Flow Rate FiO2 03/01/17 11:21 78 18 99 Nasal Cannula 2.0 03/01/17 11:12 28 03/01/17 11:12 83 18 96 Nasal Cannula 2.0 03/01/17 11:04 97.5 61 14 112/57 92 Room Air 03/01/17 09:45 143/64 03/01/17 09:44 77 143/64 03/01/17 09:43 77 143/64 03/01/17 08:02 98.1 77 15 143/64 93 Nasal Cannula 03/01/17 07:52 68 18 99 Nasal Cannula 2.0 03/01/17 07:41 Nasal Cannula 2.0 03/01/17 07:41 95 Nasal Cannula 2.0 03/01/17 07:41 71 16 95 Nasal Cannula 2.0 03/01/17 07:41 28 03/01/17 05:50 97.7 03/01/17 04:46 97.7 65 16 116/93 93 Room Air 03/01/17 03:22 Nasal Cannula 2.0 03/01/17 03:22 Nasal Cannula 2.0 03/01/17 00:31 98.4 66 18 117/67 96 Room Air 03/01/17 00:05 64 18 99 Nasal Cannula 2.0 02/28/17 23:57 67 18 96 Nasal Cannula 2.0 02/28/17 21:09 80 141/66 02/28/17 20:35 97.9 80 20 141/66 90 Room Air 02/28/17 19:32 73 18 99 Nasal Cannula 2.0 02/28/17 19:28 71 18 Nasal Cannula 2.0 28 02/28/17 19:23 71 18 98 Nasal Cannula 2.0 28 02/28/17 19:22 Nasal Cannula 2.0 28 02/28/17 19:22 98 Nasal Cannula 2.0 28 02/28/17 16:00 98.1 69 19 118/56 80 Nasal Cannula 2.0 02/28/17 14:35 71 16 97 Nasal Cannula 2.0 28 02/28/17 14:31 69 16 93 Nasal Cannula 2.0 28 Intake and Output 02/28/17 03/01/17 19:00 07:00 Intake Total 480 ml Output Total 600 ml 1000 ml Balance -600 ml -520 ml Intake Oral 480 ml Output Urine Total 600 ml 1000 ml HEENT: normocephalic, atraumatic Respiratory/Chest: chest wall non-tender, decreased breath sounds Cardiovascular: normal peripheral pulses, normal rate Abdomen: normal bowel sounds, soft, non tender Extremities: no cyanosis Current Medications Medications (Trade) Dose Ordered Sig/Scot Route PRN Reason Start Time Stop Time Status Last Admin Dose Admin Acetaminophen (Tylenol) 500 mg Q8H PRN ORAL Mild Pain (Pain Scale 1-3) 02/27/17 18:00 03/29/17 17:59 Albuterol/ Ipratropium (DuoNeb 0.5-3(2.5)mg/3ml) 3 ml Q4HRT HHN 02/27/17 19:00 03/04/17 18:59 03/01/17 11:13 Atorvastatin Calcium (Lipitor) 40 mg BEDTIME ORAL 02/27/17 21:00 03/29/17 20:59 02/28/17 21:09 Azithromycin (Zithromax) 250 mg DAILY ORAL 02/28/17 09:00 03/02/17 08:59 03/01/17 09:45 Diltiazem HCl (Cardizem CD) 120 mg Q12HR ORAL 02/27/17 21:00 03/29/17 20:59 03/01/17 09:43 Docusate Sodium (Colace) 250 mg TWICE A DAY ORAL 02/27/17 18:00 03/29/17 17:59 03/01/17 09:44 Doxazosin Mesylate (Cardura) 4 mg QHS ORAL 02/27/17 21:00 03/29/17 20:59 02/28/17 21:09 Ferrous Sulfate (Feosol) 325 mg DAILY ORAL 02/28/17 09:00 03/30/17 08:59 03/01/17 09:44 Finasteride (Proscar) 5 mg DAILY ORAL 02/28/17 09:00 03/30/17 08:59 03/01/17 09:44 Furosemide (Lasix) 80 mg BID ORAL 02/27/17 18:00 03/29/17 17:59 03/01/17 09:42 Iron Sucrose/ Sodium Chloride (Venofer/Sodium Chloride) 60 ml @ 240 mls/hr BEDTIME IVPB 02/27/17 21:00 03/01/17 21:01 02/28/17 21:09 Lisinopril (Prinivil) 40 mg DAILY ORAL 02/28/17 09:00 03/30/17 08:59 03/01/17 09:45 Metoprolol Succinate (Toprol XL) 50 mg DAILY ORAL 02/28/17 09:00 03/30/17 08:59 03/01/17 09:44 Pantoprazole (Protonix) 40 mg DAILY ORAL 02/28/17 09:00 03/30/17 08:59 03/01/17 09:53 Potassium Chloride (K-Dur) 40 meq TWICE A DAY ORAL 02/27/17 18:00 03/29/17 17:59 03/01/17 09:43 Prednisone (predniSONE) 20 mg DAILY ORAL 02/28/17 09:00 03/30/17 08:59 03/01/17 09:45 Sennosides (Senokot) 17.2 mg DAILY ORAL 02/28/17 09:00 03/30/17 08:59 03/01/17 09:42 Spironolactone (Aldactone) 25 mg DAILY ORAL 02/28/17 09:00 03/30/17 08:59 03/01/17 09:43 Tramadol HCl (Ultram) 50 mg Q6H PRN ORAL Moderate Pain (Pain Scale 4-6) 02/27/17 22:00 03/06/17 21:59 03/01/17 04:51 Vitamin A/Vitamin D (A & D Oint) 1 applic EVERY 12 HOURS TOPIC 03/01/17 00:00 03/31/17 00:00 03/01/17 09:41 Davy Smith MD Mar 01, 2017 12:48
[2017-03-01] MEDS ORDERED: PREDNISONE20 MG ORAL (13:49)
[2017-03-01] MEDS ORDERED: FUROSEMIDE80 MG ORAL (13:49)
[2017-03-01 16:19] VITALS: BP 119/56
[2017-03-01] MEDS ORDERED: NS 275ml ONE (17:26)
[2017-03-01] MEDS ORDERED: Tubing IV Secondary IV ONE (17:26)
--- NOTE | 2017-03-02 08:45 | Discharge Summary ---
DATE OF ADMISSION: 02/23/2017 DATE OF DISCHARGE: 03/01/2017 PERTINENT HISTORY: The patient was admitted with shortness of breath and respiratory failure. He has a history of congestive heart failure with low ejection fraction and a permanent pacemaker, chronic obstructive pulmonary disease, paroxysmal atrial fibrillation, and prior gastrointestinal bleeding. He was placed on BiPAP in the emergency room for respiratory failure. PERTINENT PHYSICAL FINDINGS: See my dictated History and Physical for details. GENERAL: The patient is alert. HEENT: Sclerae nonicteric. Oral mucosa moist. NECK: No adenopathy. LUNGS: Distant breath sounds. Occasional rales and rhonchi. HEART: Regular rhythm. No murmur. ABDOMEN: Soft without organomegaly. EXTREMITIES: No edema. SKIN: Scaly and dry. NEUROLOGIC: He is alert, awake, and oriented. He has dysarthria. He moves all extremities. COURSE IN THE HOSPITAL: The patient was admitted with chronic obstructive pulmonary disease with acute exacerbation and congestive heart failure exacerbation. On admission, chest x-ray showed interstitial edema, congestive heart failure, and the right pleural effusion. He is on BiPAP. He was given IV Lasix and Solu-Medrol for the chronic obstructive pulmonary disease and empiric antibiotics. He improved with the above treatment. Reyes catheter was placed in the emergency room for monitoring of his . Unfortunately, he developed gross hematuria. He was with Xarelto and Plavix continued and the hematuria abated. He may have had a scant blood in the stool . He had anemia and iron deficiency as well as Venofer. He gradually improved in all parameters. From the day of discharge, his lungs are clear with distant breath sounds. Heart has regular rhythm. Abdomen is soft. He had no edema. He had no respiratory distress. However, because of his prolonged hospitalization and due to the patient's condition, he was unable to walk safely . FINAL DIAGNOSES: 1. Congestive heart failure, [id number] with systolic and diastolic dysfunction. 2. Chronic obstructive pulmonary disease with acute exacerbation. 3. Acute respiratory failure with elevated PCO2 and hypoxemia. 4. Paroxysmal atrial fibrillation. 5. Permanent pacemaker. 6. Hypertensive heart disease. 7. Coronary artery disease. 8. Paroxysmal atrial fibrillation. 9. History of diverticulosis. 10. History of gastritis. 11. History of hemorrhoids. 12. History of cerebrovascular accident with residual. 13. History of taking anticoagulant. 14. Acute hematuria, likely from anticoagulant and Reyes trauma. 15. Anemia secondary to acute blood loss. 16. Gait disorder and weakness from prior cerebrovascular accident. DISCHARGE DISPOSITION: Discharged to [facility] on low salt diet. DISCHARGE MEDICATIONS: Per the discharge medication list. FOLLOWUP: Follow up by Dr. Rubalcava in the facility. Martinez Rubalcava M.D. DR: LOUIE JOB#: [id number] CC:
--- NOTE | 2017-03-05 23:45 | Progress Note ---
DATE: 03/01/2017 Late entry for 03/01/2017 SUBJECTIVE: The patient has less abdominal pain, tolerating diet without vomiting. OBJECTIVE: VITAL SIGNS: Blood pressure 112/57, heart rate 61 to 82, respiratory rate 14 to 18, he is afebrile. HEENT: Temporal wasting. Pale conjunctivae. Oropharynx clear. NECK: Supple. LUNGS: Clear. CARDIAC: Irregularly irregular rhythm. Normal S1, paradoxically split S2. ABDOMEN: Soft. No edema. LABORATORY DATA: Labs Noted. IMPRESSION: 1. Acute on chronic systolic and diastolic congestive heart failure, now compensated. 2. Chronic obstructive pulmonary disease exacerbation with no active bronchospasm. 3. Hematuria resolved likely due to Reyes trauma, initially. 4. Anemia, stable. 5. Permanent pacemaker. 6. Paroxysmal atrial fibrillation. 7. Cerebrovascular disease with aphasia. PLAN: 1. Resume anticoagulation for cardioembolic prophylaxis. 2. Observe closely for recurring hematuria. 3. Maintain current maintenance diuretic dosing orally. 4. Maintain current cardiovascular regimen without change. 5. Outpatient pacemaker interrogation to be scheduled. Chay Godinez M.D. DR: Ellie JOB#: [id number] CC: AN
== END 2017-03-01 17:27 | DRG 291 ==
LOC: EMR 15:02 → EDBEDREQ 18:05 → 2W 18:52 → 4E 02-27 17:20
PROC: 5A09357 Assistance with Respiratory Ventilation, Less than 24 Consecutive Hours, Continuous Positive Airway Pressure (ICD-10-PCS; principal; 2017-02-23)
DX: I13.0 Hypertensive heart and chronic kidney disease with heart failure and stage 1 through stage 4 chronic kidney disease, or unspecified chronic kidney disease (principal); I50.43 Acute on chronic combined systolic (congestive) and diastolic (congestive) heart failure; J96.01 Acute respiratory failure with hypoxia; J45.902 Unspecified asthma with status asthmaticus; J44.0 Chronic obstructive pulmonary disease with (acute) lower respiratory infection; J44.1 Chronic obstructive pulmonary disease with (acute) exacerbation; D62 Acute posthemorrhagic anemia; I69.359 Hemiplegia and hemiparesis following cerebral infarction affecting unspecified side; N39.0 Urinary tract infection, site not specified; K62.5 Hemorrhage of anus and rectum; D50.9 Iron deficiency anemia, unspecified; Z95.0 Presence of cardiac pacemaker; J20.9 Acute bronchitis, unspecified; I69.320 Aphasia following cerebral infarction; I69.322 Dysarthria following cerebral infarction; I48.0 Paroxysmal atrial fibrillation; Z79.01 Long term (current) use of anticoagulants; N18.9 Chronic kidney disease, unspecified; R31.0 Gross hematuria; I25.10 Atherosclerotic heart disease of native coronary artery without angina pectoris; K57.90 Diverticulosis of intestine, part unspecified, without perforation or abscess without bleeding; R26.89 Other abnormalities of gait and mobility; M19.90 Unspecified osteoarthritis, unspecified site; Z87.891 Personal history of nicotine dependence; Z85.46 Personal history of malignant neoplasm of prostate; R10.9 Unspecified abdominal pain
CPT/HCPCS: 36415; 71010; 74000; 80048; 80053; 81001; 81003; 82550; 82553; 82728; 83540; 83550; 83605; 83880; 84153; 84484; 85007; 85025; 87040; 87086; 93005; 94640; 94660; 94664; 94760; J7620; J8499

== ENCOUNTER 2017-08-05 15:36 | Inpatient (IN) | payer MEDICARE, OTHER ==
[~2017-08-05] VITALS: Ht 162.6 cm; Wt 59.2 kg
[~2017-08-05 15:36] MED LIST changes: +FUROSEMIDE80 MG ORAL; +MAGNEBIND 4001 EACH PO; +PREDNISONE20 MG ORAL; +PROSCAR5 MG ORAL
[2017-08-05] MEDS ORDERED: UNOBMED (15:58)
[2017-08-05] MEDS ORDERED: Solu-MEDROL 125mg Inj IVP ONE (16:15)
[2017-08-05] MEDS: Albuterol ud Inhalation HHN SCH ×2 (16:31→16:32)
[2017-08-05] MEDS: Ipratropium 0.02% Inh Soln 2.5ml UD HHN SCH ×2 (16:31→16:32)
--- NOTE | 2017-08-05 16:52 | Emergency Room Report ---
History of Present Illness General Chief Complaint: Skin Rash/Abscess Source: Patient, Family Member, Medical Record Present Illness HPI 72-year-old male, history of COPD, pacemaker, sent in for bump in the back of the head. Per patient and daughter, patient has had a cyst/bump for several years, however for the last 2 days it was bleeding a little bit. Denies any purulent drainage. Denies any fever or chills. Upon talking to patient, noted to have severe shortness of breath. Patient states the he always is "short of breath"and has inhalers at home, patient unable to speak in more than 3-4 word sentences Currently denying any chest pain Allergies: Coded Allergies: SHELLFISH (Verified Allergy, Unknown, 07/01/11) Patient History Past Medical History: see triage record Past Surgical History: none Pertinent Family History: none Reviewed Nursing Documentation: PMH: Agreed, PSxH: Agreed Nursing Documentation-PMH Past Medical History Deferred: No Family Available Hx Hypertension: Yes Hx Pacemaker: Yes - VPACED Hx Asthma: Yes Hx COPD: Yes Hx Diabetes: No Hx Cancer: No Hx Gastrointestinal Problems: Yes Hx Neurological Problems: Yes Hx Cerebrovascular Accident: Yes Hx Speech Problem: Yes Hx Dizziness: Yes Hx Syncope: Yes Hx Headaches: Yes Hx Aphasia: Yes Hx Dysphasia: Yes Hx Weakness: Yes Hx Fatigue: Yes Review of Systems All Other Systems: negative except mentioned in HPI Physical Exam Vital Signs Date Time Temp Pulse Resp B/P (MAP) Pulse Ox O2 Delivery O2 Flow Rate FiO2 08/05/17 15:48 97.3 71 20 165/65 96 Room Air 08/05/17 16:34 21 Sp02 EP Interpretation: reviewed, normal General Appearance: other - Thin elderly man, appears to be in respiratory distress, speaking 3-4 word sentences Head: normocephalic, atraumatic Eyes: bilateral eye normal inspection, bilateral eye PERRL, bilateral eye EOMI ENT: normal ENT inspection, normal pharynx, normal voice, moist mucus membranes Neck: normal inspection, full range of motion, supple Respiratory: other - insp and expiratory wheezing bilaterally Cardiovascular #1: normal inspection, regular rate, rhythm, normal capillary refill, other - PPM [place] Cardiovascular #2: 2+ radial (R), 2+ radial (L) Gastrointestinal: normal inspection, non tender, soft, non-distended, no guarding Genitourinary: no CVA tenderness Musculoskeletal: normal inspection, back normal, normal range of motion, non- tender Neurologic: normal inspection, alert, oriented x3, responsive, motor strength/ tone normal, sensory intact, normal gait, speech normal Psychiatric: normal inspection, judgement/insight normal, memory normal Skin: other - 2 x 2 centimeter chronic possibly sebaceous gland cyst left lower occipital region, tender to palpation, not red, no purulent drainage Medical Decision Making Diagnostic Impression: Primary Impression: COPD exacerbation Additional Impression: Pneumonia ER Course 72-year-old male with pmhx of COPD p/w found to right head DDX: Appears to be chronic sebaceous cyst, also with shortness of breath, COPD exacerbation, CHF, ACS, pneumonia Plan: IV access, compliance monitor, O2 nasal cannula, EKG, CXR obtain basic labs including blood gas, troponin, Duonebs, steroids No acute management for sebaceous cyst, does not appear to be infected ER Course: Patient's respiratory status has been closely monitored in the ED. Patient has been treated with combivent x 3, steroids, antibiotics. Repeat lung auscultation reveals persistent wheezing, however more improved Disposition: Patient will be admitted to telemetry Patient requires close monitoring of respiratory status, and nebulizer treatment. D/W hospitalist Dr Gaytan who has accepted patient for admission Please note that this Emergency Department Report was dictated using [employer] mixer technology software, occasionally this can lead to erroneous entry secondary to interpretation by the dictation equipment. EKG Diagnostic Results EP Interpretation: Yes Rate: normal Rhythm: paced rhythm ST Segments: wide QRS paced rhythm ST depression V2, TWI aVL ASA given to patient: No Rhythm Strip EP Interpretation: Yes Rate: 60 Rhythm: paced rhythm Chest X-ray CXR: Ordered: Yes 1 view Indication: Chest pain EP interpretation: Yes Interpretation: Cardiomegaly, possibly right-sided infiltrate Impression: cardiomegaly, possibly R sided infilrate Electronically signed by Deisy Garcia MD Laboratory Tests Test 08/05/17 16:55 08/05/17 17:20 White Blood Count 4.4 K/UL (4.8-10.8) L Red Blood Count 3.42 M/UL (4.70-6.10) L Hemoglobin 9.7 G/DL (14.2-18.0) L Hematocrit 32.2 % (42.0-52.0) L Mean Corpuscular Volume 94 FL (80-99) Mean Corpuscular Hemoglobin 28.5 PG (27.0-31.0) Mean Corpuscular Hemoglobin Concent 30.2 G/DL (32.0-36.0) L Red Cell Distribution Width 15.8 % (11.6-14.8) H Platelet Count 101 K/UL (150-450) L Mean Platelet Volume 7.8 FL (6.5-10.1) Neutrophils (%) (Auto) 61.6 % (45.0-75.0) Lymphocytes (%) (Auto) 22.1 % (20.0-45.0) Monocytes (%) (Auto) 13.4 % (1.0-10.0) H Eosinophils (%) (Auto) 1.6 % (0.0-3.0) Basophils (%) (Auto) 1.4 % (0.0-2.0) Prothrombin Time 13.4 SEC (9.30-11.50) H Prothrombin Time INR 1.3 (0.9-1.1) H PTT 31 SEC (23-33) Sodium Level 143 MMOL/L (136-145) Potassium Level 3.8 MMOL/L (3.5-5.1) Chloride Level 107 MMOL/L (98-107) Carbon Dioxide Level 28 MMOL/L (21-32) Anion Gap 8 mmol/L (5-15) Blood Urea Nitrogen 11 mg/dL (7-18) Creatinine 1.0 MG/DL (0.55-1.30) Estimate Glomerular Filtration Rate mL/min (>60) Glucose Level 92 MG/DL (74-106) Calcium Level 8.9 MG/DL (8.5-10.1) Total Bilirubin 0.7 MG/DL (0.2-1.0) Aspartate Amino Transferase (AST) 24 U/L (15-37) Alanine Aminotransferase (ALT) 11 U/L (12-78) L Alkaline Phosphatase 123 U/L (46-116) H Troponin I 0.028 ng/mL (0.000-0.056) Pro-B-Type Natriuretic Peptide 5921 pg/mL (0-125) H Total Protein 8.5 G/DL (6.4-8.2) H Albumin 2.7 G/DL (3.4-5.0) L Globulin 5.8 g/dL Albumin/Globulin Ratio 0.5 (1.0-2.7) L Arterial Blood pH 7.420 (7.350-7.450) Arterial Blood Partial Pressure CO2 39.8 mmHg (35.0-45.0) Arterial Blood Partial Pressure O2 172.5 mmHg (75.0-100.0) H Arterial Blood HCO3 25.2 mmol/L (22.0-26.0) Arterial Blood Oxygen Saturation 98.9 % (92.0-98.0) H Arterial Blood Base Excess 0.8 Chepe Test Positive Last Vital Signs Date Time Temp Pulse Resp B/P (MAP) Pulse Ox O2 Delivery O2 Flow Rate FiO2 08/05/17 16:41 21 08/05/17 16:39 61 27 100 Room Air 08/05/17 15:48 97.3 165/65 Referrals: HODAN GAYTAN (PCP) Deisy Garcia M.D. Aug 05, 2017 16:52
[2017-08-05 17:22] LABS: BASOPHILS % (AUTO) 1.4 % (0.0-2.0); EOSINOPHILS % (AUTO) 1.6 % (0.0-3.0); LYMPHOCYTES % (AUTO) 22.1 % (20.0-45.0); MEAN CORPUSCULAR HEMOGLOBIN 28.5 PG (27.0-31.0); MEAN CORPUSCULAR HGB CONC 30.2 G/DL (32.0-36.0); MEAN CORPUSCULAR VOLUME 94 FL (80-99); MEAN PLATELET VOLUME 7.8 FL (6.5-10.1); MONOCYTES % (AUTO) 13.4 % (1.0-10.0); NEUTROPHILS % (AUTO) 61.6 % (45.0-75.0); PLATELET COUNT 101 K/UL (150-450); RED BLOOD COUNT 3.42 M/UL (4.70-6.10); RED CELL DISTRIBUTION WIDTH 15.8 % (11.6-14.8); WHITE BLOOD COUNT 4.4 K/UL (4.8-10.8)
[2017-08-05 17:27] LABS: INR 1.3 (0.9-1.1); PROTHROMBIN TIME 13.4 SEC (9.30-11.50)
[2017-08-05 17:31] LABS: ABG BASE EXCESS 0.8; ABG PCO2 39.8 mmHg (35.0-45.0)
[2017-08-05 17:32] LABS: ANION GAP 8 mmol/L (5-15); CALCIUM 8.9 MG/DL (8.5-10.1); CARBON DIOXIDE 28 MMOL/L (21-32); CHLORIDE 107 MMOL/L (98-107); POTASSIUM 3.8 MMOL/L (3.5-5.1); SODIUM 143 MMOL/L (136-145)
[2017-08-05 17:32] LABS: ABG ALLEN TEST POSITIVE
[2017-08-05 17:44] LABS: ALANINE AMINOTRANSFERASE 11 U/L (12-78); ALBUMIN/GLOBULIN RATIO 0.5 (1.0-2.7); ASPARTATE AMINO TRANSFERASE 24 U/L (15-37); TOTAL PROTEIN 8.5 G/DL (6.4-8.2)
[2017-08-05 18:00] VITALS: BP 177/70
[2017-08-05] MEDS ORDERED: LOSARTAN POTASS50 MG ORAL (18:18)
[2017-08-05] MEDS ORDERED: FUROSEMIDE20 M1 ORAL (18:18)
[2017-08-05] MEDS ORDERED: MAG-OXIDE400 M1 PO (18:18)
[2017-08-05] MEDS ORDERED: COL-RITE250 MG PO ×2 (18:18→19:56)
[2017-08-05] MEDS ORDERED: FUROSEMIDE40 MG ORAL (18:18)
[2017-08-05] MEDS ORDERED: cefTRIAXone 1 GM in NS 55 ML IV ONE (19:00)
[2017-08-05] MEDS ORDERED: FERROUS GLUCON324 M1 PO (19:21)
[2017-08-05] MEDS ORDERED: PROTONIX20 MG ORAL (19:57)
[2017-08-05 20:14] LABS: APPEARANCE,URINE CLEAR; KETONES,URINE NEGATIVE (NEGATIVE); LEUKOCYTE ESTERASE ,URINE NEGATIVE (NEGATIVE); NITRITE,URINE NEGATIVE (NEGATIVE); PH,URINE 5 (4.5-8.0); PROTEIN,URINE 2+ (NEGATIVE); UROBILINOGEN,URINE 1 MG/DL (0.0-1.0)
[2017-08-05 20:25] LABS: BACTERIA,URINE OCCASIONAL /HPF; MUCUS,URINE FEW /LPF (NONE/OCC); SQUAMOUS EPITHELIAL CELL,UR OCCASIONAL /LPF (NONE/OCC); WBC,URINE 0-2 /HPF (0 - 0)
[2017-08-05 20:48] VITALS: BP 143/62
[2017-08-05] MEDS ORDERED: Azithromycin 500 MG in D5W 275 ML IVPB ONE (21:30)
[2017-08-05] MEDS ORDERED: Azithromycin 500mg Inj IV ONE ×2 (21:33→21:52)
[2017-08-05] MEDS ORDERED: Acetaminophen 500mg (ES) tab ORAL PRN (22:00)
[2017-08-05] MEDS ORDERED: Furosemide 80mg tab ORAL SCH (22:00)
[2017-08-05] MEDS ORDERED: Furosemide 40mg tab ONE (22:12)
[2017-08-05 22:50] VITALS: BP 135/69
[2017-08-05] MEDS: Albuterol/Ipratropium 3ml neb HHN SCH (23:00)
[2017-08-06] VITALS: BP 154/94
[2017-08-06] MEDS ORDERED: Acetaminophen 500mg (ES) tab ORAL PRN
--- NOTE | 2017-08-06 02:45 | Consultation ---
DATE OF CONSULTATION: 08/05/2017 CARDIOLOGY CONSULTATION CONSULTING PHYSICIAN: Chay Godinez M.D. REQUESTING PHYSICIAN: Martinez Rubalcava M.D. REASON FOR CONSULTATION: Congestive heart failure and cardiac arrhythmia. HISTORY OF PRESENT ILLNESS: This is a 72-year-old male, known to me from prior care with a longstanding history of hypertensive and ischemic heart disease, congestive heart failure, and COPD. He has a permanent pacemaker as well. He was brought into the emergency room for evaluation of a bump on the back of his head that has been there for several years, but notably bleeding over the past few days on and off. Of concern also was his shortness of breath and several abnormal laboratory studies. PAST MEDICAL HISTORY: COPD, hypertensive heart disease, coronary artery disease, arteriosclerotic cardiovascular disease, paroxysmal atrial fibrillation, [employer] permanent pacemaker, diverticulosis, hemorrhoids, chronic systolic and diastolic congestive heart failure, osteoarthritis, cerebrovascular atherosclerosis, and mild dysarthria. ALLERGIES: To shellfish. MEDICATIONS: Prior to admission reviewed and reconciled. SOCIAL HISTORY: A 50 plus pack year former smoker. Occasional beer, no excessive alcohol use. No substance abuse. Lives with family members. FAMILY HISTORY: Noncontributory. REVIEW OF SYSTEMS: No hearing loss. His vision is fair. He has not noted any recent change. He has not had any trauma to his head. He has had some bleeding from the bump on his head. He does have chronic kidney disease. No history of prostate cancer. He has had a prior stroke with mild dysarthria. A myocardial perfusion scan done here in 2016 revealed mild reversible ischemia. An echocardiogram done at that time also revealed ejection fraction of about 40% to 45% with mild degenerative valve disease. It is unclear when the patient's pacemaker was last interrogated. PHYSICAL EXAMINATION: VITAL SIGNS: Blood pressure 165/65, pulse 70, respiratory rate 20, and afebrile. HEENT: Mild temporal wasting. Conjunctivae are pink. Oropharynx clear. NECK: Supple. Some accessory muscle use. Jugular venous pressure is elevated. LUNGS: Coarse breath sounds. Expiratory wheezes. CARDIAC: Regular rhythm and rate. Normal S1 and S2 with a 1/6 early systolic apical murmur. ABDOMEN: Soft and nontender. EXTREMITIES: Good pulses with no edema. SKIN: There is occipital gland cyst in the occipital region with a cystic structure noted, tender to palpation with no drainage. LABORATORY AND DIAGNOSTIC DATA: White count 4.4 and hemoglobin 9.7. ABG, 7.42, 40, and 170. Sodium 143, potassium 3.8, bicarbonate 28, BUN 11, and creatinine 1. Troponin is 0.028. Pro-natriuretic peptide 5900. Albumin 3.7. Chest x-ray reveals possible right-sided infiltrate. The EKG reveals ventricular pacing. IMPRESSION: 1. Chronic obstructive pulmonary disease with acute exacerbation. 2. Acute bronchospasm. 3. Acute on chronic systolic and diastolic congestive heart failure. 4. Paroxysmal atrial fibrillation. 5. Hypertensive heart disease. 6. Permanent pacemaker. PLAN: 1. Cardiac monitoring. 2. Inhaled bronchodilators. 3. 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 4. Diuresis. 5. Pacemaker interrogation. 6. Titration and optimization of cardiovascular regimen to optimize filling pressures. 7. Continue anti-platelet therapy and statin. Chay Godinez M.D. DR: LEE JOB#: [id number] CC:
[2017-08-06] MEDS: Albuterol/Ipratropium 3ml neb HHN SCH ×6 (03:38→23:00)
[2017-08-06 04:00] VITALS: BP 148/72
[2017-08-06] MEDS: Magnesium Oxide 400mg tab ORAL SCH ×2 (06:33→17:35)
[2017-08-06 08:00] VITALS: BP 150/77
[2017-08-06] MEDS: Docusate 250mg cap ORAL SCH ×2 (08:43→17:35)
[2017-08-06] MEDS: Losartan 50mg tab ORAL SCH (08:44)
[2017-08-06] MEDS: Furosemide 80mg tab ORAL SCH ×2 (08:44→21:16)
[2017-08-06] MEDS: Heparin 5000 units/ml inj SUBQ SCH ×2 (08:48→21:00)
[2017-08-06] MEDS: Solu-MEDROL 40mg Inj IVP SCH (08:49)
[2017-08-06] MEDS: dilTIAZem HCl CD 180mg cap ORAL SCH (08:49)
[2017-08-06] MEDS ORDERED: Ferrous Gluconate 324 MG TAB ORAL SCH (09:00)
[2017-08-06] MEDS ORDERED: Solu-MEDROL 40mg Inj IVP SCH (09:00)
[2017-08-06] MEDS ORDERED: Iron Sucrose 100 MG in NS 55 ML IV SCH (09:00)
[2017-08-06] MEDS: Azithromycin 250mg tab ORAL SCH (09:01)
[2017-08-06] MEDS: cefTRIAXone 1 GM in D5W 55 ML IVPB SCH (10:01)
[2017-08-06] MEDS: Aspirin EC 81mg tab ORAL SCH (10:05)
[2017-08-06] MEDS: Metoprolol Succinate XL 50mg tab ORAL SCH (10:05)
[2017-08-06 10:44] LABS: FERRITIN 252 NG/ML (8-388)
[2017-08-06 10:55] LABS: IRON 32 ug/dL (50-175); TOTAL IRON BINDING CAPACITY 224 ug/dL (250-450)
[2017-08-06 12:00] VITALS: BP 133/71
[2017-08-06] MEDS ORDERED: Vancomycin 1500mg IVPB ONE (12:00)
--- NOTE | 2017-08-06 14:02 | Diagnostic Imaging Report ---
Indication: Dyspnea Comparison: 02/25/17 A single view chest radiograph was obtained. Findings: There is enlargement of the cardiac silhouette with pulmonary vascular redistribution and prominence, hazy vessel margins and the suggestion of interstitial edema consistent with CHF. There is evidence of right pleural effusion vs thickening. Findings are unchanged. Pacemaker again noted. Impression: CHF Right pleural effusion versus thickening
--- NOTE | 2017-08-06 15:39 | Cardiology Report ---
APPROVED REPORT EKG Measurement Heart [id number] afib v apcing
[2017-08-06 16:00] VITALS: BP 114/55
--- NOTE | 2017-08-06 16:30 | History and Physical Report ---
DATE OF ADMISSION: 08/05/2017 CHIEF COMPLAINT AND REASON FOR HOSPITALIZATION: The patient is a 72-year-old male, admitted with cough, shortness of breath, weakness, and sebaceous cyst. HISTORY OF PRESENT ILLNESS: The patient has a history of COPD, chronic systolic CHF, permanent pacemaker, atrial fibrillation, prior GI bleeding, and prior CVA. He presents with increasing cough and shortness of breath. He also has a sebaceous cyst on the back of his neck with some irritation. The patient uses a nebulizer at home and Lasix. He has been intermittently hospitalized on BiPAP in the past for respiratory distress, but his distress is not as bad as in the past. PAST SURGICAL HISTORY: Permanent pacemaker. ALLERGIES: VINCENT inhibitors causing angioedema. MEDICATIONS: Lasix 40 mg in the morning and 20 mg in the evening, prazosin 5 mg at bedtime, Toprol 50 mg daily, diltiazem 180 mg daily, DSS 250 b.i.d., simvastatin 40 mg daily, Protonix 40 mg daily, ferrous sulfate 325 mg daily, Proscar 5 mg daily, magnesium oxide 400 mg b.i.d., Cozaar 50 mg daily, and Tylenol 1000 mg t.i.d. HABITS: He is a former smoker, quit many years ago. Alcohol, occasional. Drugs, none. SOCIAL HISTORY: He lives with extended family. SYSTEM REVIEW: HEAD, EYES, EARS, NOSE, AND THROAT: The patient's hearing is good. He is edentulous. ENDOCRINE: No diabetes or thyroid disease. PULMONARY: COPD with recurrent exacerbations. No known TB. CARDIAC: See above. There is no chest pain. GASTROINTESTINAL: He has had Hemoccult-positive stool and multiple endoscopies, which have been generally negative. GENITOURINARY: History of BPH. He has had urinary retention in the past. He is voiding well now. Nocturia about three times per night. NEUROLOGIC: History of CVA with severe dysarthria, but no focal weakness. MUSCULOSKELETAL: History of some low back pain in the past. PHYSICAL EXAMINATION: GENERAL: The patient is an alert man, chronically ill-appearing, and ambulatory. VITAL SIGNS: Today, blood pressure 150/77, pulse 70, respirations 24, and pulse oximetry 99%. HEAD, EYES, EARS, NOSE, AND THROAT: Sclerae are nonicteric. Ocular motions intact in all directions. He is edentulous. Throat, no lesions. NECK: No adenopathy. SKIN: There is a sebaceous cyst with a blood clot, slight drainage in the posterior part of the neck. LUNGS: Bilateral rhonchi. He has a harsh cough, but no distress. HEART: The rhythm is regular with a 2/6 systolic ejection murmur. ABDOMEN: Soft without organomegaly or masses. EXTREMITIES: No edema, cyanosis, or clubbing. SKIN: Shows a scaly dry skin. GENITOURINARY: Not done. Done in the past. RECTAL: Not done. Done in the past. REVIEW OF PERTINENT DATA: White count is 4.4, hemoglobin is 9.7. PH 7.42, pCO2 39.8, pO2 is 172.5 in the emergency room. Electrolytes normal. BUN 11, creatinine 1. Troponin 0.028. BNP 5921. Chest x-ray is not on this computer system. We will review . IMPRESSION: 1. Chronic obstructive pulmonary disease with acute exacerbation. 2. Acute on chronic systolic congestive heart failure. 3. Possible pneumonia. 4. Sebaceous cyst. 5. Atrial fibrillation. 6. Permanent pacemaker. 7. History of cerebrovascular accident. 8. Osteoarthritis. 9. Benign prostatic hyperplasia. 10. Hypertension. PLAN: The patient will be continued with increased diuretics, steroids, nebulizer treatments, and empiric antibiotics. Chest x-ray will be reviewed. Case is discussed with consultants. Martinez Rubalcava M.D. DR: YAZMIN/LEYDI JOB#: [id number] CC:
[2017-08-06 20:00] VITALS: BP 127/65
[2017-08-06] MEDS: Iron Sucrose 100 MG in NS 55 ML IV SCH (21:16)
[2017-08-06] MEDS: Atorvastatin 20mg tab ORAL SCH (21:21)
[2017-08-07] VITALS (7 sets, daily range): BP systolic 128–157; BP diastolic 65–76
--- NOTE | 2017-08-07 02:15 | Progress Note ---
DATE: 08/06/2017 CARDIOLOGY PROGRESS NOTE SUBJECTIVE: The patient is somewhat less congested today. He is saturating 92% to 99% on room air. Pacemaker was interrogated. His battery life is approximately one year. Current function is appropriate. No malignant arrhythmias detected. OBJECTIVE: VITAL SIGNS: Blood pressure 127/65, pulse 63, and respiratory rate 18. NECK: Supple. LUNGS: With coarse breath sounds. Rhonchi and few wheezes. CARDIAC: Regular rhythm and rate. Normal S1 and S2 with a 1/6 systolic apical murmur. ABDOMEN: Soft and nontender. EXTREMITIES: No edema. LABORATORY DATA: Iron saturation is 14%. Troponin is negative. Pro-natriuretic peptide was 5921. IMPRESSION: 1. Chronic obstructive pulmonary disease exacerbation. 2. Acute on chronic systolic and diastolic congestive heart failure. 3. Permanent pacemaker. 4. Iron deficiency anemia and chronic disease anemia. 5. Paroxysmal atrial fibrillation. PLAN: 1. Diuretics. 2. Steroids. 3. Inhaled bronchodilators. 4. Empiric antibiotics. 5. Repeat chest x-ray. 6. Replace electrolytes. 7. DVT prophylaxis. Chay Godinez M.D. DR: LEE JOB#: [id number] CC:
[2017-08-07] MEDS: Albuterol/Ipratropium 3ml neb HHN SCH ×6 (03:55→23:20)
[2017-08-07] MEDS: Magnesium Oxide 400mg tab ORAL SCH ×2 (06:33→17:27)
[2017-08-07 06:36] LABS: MEAN CORPUSCULAR HGB CONC 31.8 G/DL (32.0-36.0); MEAN CORPUSCULAR VOLUME 91 FL (80-99); MEAN PLATELET VOLUME 8.7 FL (6.5-10.1); PLATELET COUNT 110 K/UL (150-450); RED BLOOD COUNT 3.23 M/UL (4.70-6.10); RED CELL DISTRIBUTION WIDTH 15.8 % (11.6-14.8); WHITE BLOOD COUNT 9.5 K/UL (4.8-10.8)
[2017-08-07 07:02] LABS: ANION GAP 8 mmol/L (5-15); CALCIUM 8.9 MG/DL (8.5-10.1); CARBON DIOXIDE 27 MMOL/L (21-32); CHLORIDE 109 MMOL/L (98-107); CREATININE 1.1 MG/DL (0.55-1.30); POTASSIUM 4.7 MMOL/L (3.5-5.1); SODIUM 144 MMOL/L (136-145)
[2017-08-07 07:13] LABS: MAGNESIUM 1.9 MG/DL (1.8-2.4)
[2017-08-07 08:09] LABS: ANISOCYTOSIS 1+; BAND NEUTROPHILS % (MANUAL) 0 % (0-8); BASOPHILS % (MANUAL) 0 % (0-2); EOSINOPHILS % (MANUAL) 0 % (0-3); HYPOCHROMASIA 1+; LYMPHOCYTES % (MANUAL) 4 % (20-45); NEUTROPHILS % (MANUAL) 88 % (45-75); PLATELET ESTIMATE DECREASED; PLATELET MORPHOLOGY NORMAL; TOTAL CELLS COUNTED 100
[2017-08-07] MEDS: Docusate 250mg cap ORAL SCH ×2 (10:04→17:29)
[2017-08-07] MEDS: Azithromycin 250mg tab ORAL SCH (10:05)
[2017-08-07] MEDS: Aspirin EC 81mg tab ORAL SCH (10:05)
[2017-08-07] MEDS: Furosemide 80mg tab ORAL SCH ×2 (10:06→21:25)
[2017-08-07] MEDS: Solu-MEDROL 40mg Inj IVP SCH (10:09)
[2017-08-07] MEDS: Heparin 5000 units/ml inj SUBQ SCH ×2 (10:11→21:00)
[2017-08-07] MEDS: Losartan 50mg tab ORAL SCH (10:16)
[2017-08-07] MEDS: dilTIAZem HCl CD 180mg cap ORAL SCH (10:17)
[2017-08-07] MEDS: Metoprolol Succinate XL 50mg tab ORAL SCH (10:17)
[2017-08-07] MEDS: cefTRIAXone 1 GM in D5W 55 ML IVPB SCH (10:24)
[2017-08-07] MEDS: guaiFENesin DM 100mg/5ml ORAL PRN (13:39)
[2017-08-07] MEDS: Vancomycin 1250mg/D5W 250ml IVPB SCH (13:40)
--- NOTE | 2017-08-07 17:50 | General Progress Note ---
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 SNOMED: 989001288 (4) COPD exacerbation ICD Codes: J44.1 - Chronic obstructive pulmonary disease with (acute) exacerbation SNOMED: 990706950048159 (5) Anemia ICD Codes: D64.9 - Anemia SNOMED: 122863711 (6) Atrial fibrillation ICD Codes: I48.91 - Atrial fibrillation SNOMED: 51259925 Assessment/Plan continue diuresis, antibiotics, taper steroids Subjective Constitutional: Reports: weakness HEENT: Reports: no symptoms Cardiovascular: Reports: no symptoms Respiratory: Reports: cough, shortness of breath Gastrointestinal/Abdominal: Reports: no symptoms Genitourinary: Reports: no symptoms Neurologic/Psychiatric: Reports: pre-existing deficit Endocrine: Reports: no symptoms Hematologic/Lymphatic: Reports: anemia Allergies: Coded Allergies: VINCENT INHIBITORS (Verified Allergy, Mild, 08/06/17) SHELLFISH (Verified Allergy, Unknown, 07/01/11) Objective Last 24 Hour Vital Signs Date Time Temp Pulse Resp B/P (MAP) Pulse Ox O2 Delivery O2 Flow Rate FiO2 08/07/17 16:00 97.7 66 20 137/69 94 Room Air 08/07/17 15:42 64 24 99 Room Air 08/07/17 15:36 62 24 95 Room Air 08/07/17 12:00 97.5 61 18 139/67 97 Room Air 08/07/17 12:00 66 08/07/17 11:04 63 20 99 Room Air 08/07/17 10:53 61 20 95 Room Air 08/07/17 10:17 62 144/69 08/07/17 10:17 62 144/69 08/07/17 10:16 144/69 08/07/17 08:30 62 24 98 Room Air 08/07/17 08:19 95 Room Air 08/07/17 08:18 Room Air 08/07/17 08:12 65 24 95 Room Air 08/07/17 08:00 67 08/07/17 08:00 97.2 62 18 144/69 97 Room Air 08/07/17 04:00 61 08/07/17 04:00 97.0 61 18 137/71 97 Room Air 1.0 08/07/17 03:56 64 20 97 Room Air 08/07/17 03:56 66 20 99 Room Air 21 08/07/17 00:00 97.0 66 18 128/65 99 Room Air 1.0 08/07/17 00:00 63 08/06/17 23:22 Room Air 08/06/17 23:20 Room Air 21 08/06/17 20:00 63 08/06/17 20:00 97.0 60 18 127/65 99 Room Air 1.0 08/06/17 19:45 64 20 94 Room Air 08/06/17 19:30 92 Room Air 08/06/17 19:30 Room Air 08/06/17 19:30 60 20 92 Room Air Intake and Output 08/07/17 08/08/17 19:00 07:00 Intake Total 221.667 ml Balance 221.667 ml IV Total 221.667 ml Laboratory Tests 08/07/17 05:40: White Blood Count 9.5, Red Blood Count 3.23L, Hemoglobin 9.4L, Hematocrit 29.5L , Mean Corpuscular Volume 91, Mean Corpuscular Hemoglobin 29.0, Mean Corpuscular Hemoglobin Concent 31.8L, Red Cell Distribution Width 15.8H, Platelet Count 110L, Mean Platelet Volume 8.7, Neutrophils (%) (Auto) , Lymphocytes (%) (Auto) , Monocytes (%) (Auto) , Eosinophils (%) (Auto) , Basophils (%) (Auto) , Differential Total Cells Counted 100, Neutrophils % ( Manual) 88H, Lymphocytes % (Manual) 4L, Monocytes % (Manual) 8, Eosinophils % ( Manual) 0, Basophils % (Manual) 0, Band Neutrophils 0, Platelet Estimate DecreasedL, Platelet Morphology Normal, Hypochromasia 1+, Anisocytosis 1+, Sodium Level 144, Potassium Level 4.7, Chloride Level 109H, Carbon Dioxide Level 27, Anion Gap 8, Blood Urea Nitrogen 20H, Creatinine 1.1, Estimat Glomerular Filtration Rate , Glucose Level 118H, Calcium Level 8.9, Magnesium Level 1.9, Pro-B-Type Natriuretic Peptide 6438H Height (Feet): 5 Height (Inches): 4.00 Weight (Pounds): 131 General Appearance: no apparent distress, alert EENT: other - edent Neck: normal alignment Cardiovascular: normal rate, regular rhythm, systolic murmur Respiratory/Chest: rhonchi - bilaterally Abdomen: non tender, soft Edema: other - no edema Skin: other - ophelia cyst on neck with some drainage HODAN GAYTAN Aug 07, 2017 17:50
[2017-08-07] MEDS: Iron Sucrose 100 MG in NS 55 ML IV SCH (21:24)
[2017-08-07] MEDS: Atorvastatin 20mg tab ORAL SCH (21:24)
[2017-08-08] MEDS: Albuterol/Ipratropium 3ml neb HHN SCH ×6 (03:29→23:36)
--- NOTE | 2017-08-08 03:45 | Progress Note ---
DATE: 08/07/2017 CARDIOLOGY PROGRESS NOTE SUBJECTIVE: Remains congested and has shortness of breath. OBJECTIVE: VITAL SIGNS: Blood pressure 137/69, pulse 66, respirations 20, and afebrile. LUNGS: Coarse breath sounds. Few wheezes. HEART: Regular rhythm and rate. Normal S1, S2. A 1/6 systolic apical murmur. ABDOMEN: Soft. EXTREMITIES: Trace edema. LABORATORY DATA: White count 9.5, hemoglobin 9.4. Potassium 4.7, magnesium 1.9. Pro-natriuretic peptide is 6400. IMPRESSION: 1. Chronic obstructive pulmonary disease exacerbation. 2. Acute bronchospasm. 3. Acute on chronic systolic and diastolic congestive heart failure. 4. Permanent pacemaker. 5. Paroxysmal atrial fibrillation. 6. Cerebrovascular disease with dementia. PLAN: 1. Continued bronchodilators. 2. Steroids with taper. 3. Antimicrobials. 4. Optimize anti-failure regimen. 5. Continue diuresis. Chay Godinez M.D. DR: CELIA JOB#: [id number] CC:
[2017-08-08 04:15] VITALS: BP 142/78
[2017-08-08] MEDS: Magnesium Oxide 400mg tab ORAL SCH ×2 (06:30→17:23)
[2017-08-08 08:00] VITALS: BP 131/79
[2017-08-08] MEDS: Aspirin EC 81mg tab ORAL SCH (09:00)
[2017-08-08] MEDS: cefTRIAXone 1 GM in D5W 55 ML IVPB SCH (09:25)
[2017-08-08] MEDS: Solu-MEDROL 40mg Inj IVP SCH (09:26)
[2017-08-08] MEDS: Losartan 50mg tab ORAL SCH (09:26)
[2017-08-08] MEDS: Docusate 250mg cap ORAL SCH ×2 (09:27→17:31)
[2017-08-08] MEDS: Metoprolol Succinate XL 50mg tab ORAL SCH (09:27)
[2017-08-08] MEDS: Azithromycin 250mg tab ORAL SCH (09:27)
[2017-08-08] MEDS: dilTIAZem HCl CD 180mg cap ORAL SCH (09:27)
--- NOTE | 2017-08-08 10:08 | General Progress Note ---
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 SNOMED: 745683461 (4) COPD exacerbation ICD Codes: J44.1 - Chronic obstructive pulmonary disease with (acute) exacerbation SNOMED: 256562743866563 (5) Anemia ICD Codes: D64.9 - Anemia SNOMED: 101164450 (6) Atrial fibrillation ICD Codes: I48.91 - Atrial fibrillation SNOMED: 48231839 Assessment/Plan continue diuresis, antibiotics, taper steroids, discussedf need to take all meds Subjective Constitutional: Reports: weakness HEENT: Reports: no symptoms Cardiovascular: Reports: no symptoms Respiratory: Reports: cough, SOB with excertion Gastrointestinal/Abdominal: Reports: no symptoms Genitourinary: Reports: urgency Neurologic/Psychiatric: Reports: pre-existing deficit Endocrine: Reports: no symptoms Allergies: Coded Allergies: VINCENT INHIBITORS (Verified Allergy, Mild, 08/06/17) SHELLFISH (Verified Allergy, Unknown, 07/01/11) Objective Last 24 Hour Vital Signs Date Time Temp Pulse Resp B/P (MAP) Pulse Ox O2 Delivery O2 Flow Rate FiO2 08/08/17 09:27 70 131/79 08/08/17 09:27 70 131/79 08/08/17 09:26 131/79 08/08/17 08:00 97.0 70 22 131/79 95 Room Air 08/08/17 07:20 75 18 97 Room Air 08/08/17 07:11 Room Air 08/08/17 07:11 95 Room Air 08/08/17 07:11 72 18 95 Room Air 08/08/17 04:15 97.8 63 18 142/78 95 Room Air 08/08/17 04:00 75 08/08/17 03:30 66 20 96 Room Air 08/08/17 03:29 64 20 94 Room Air 08/08/17 00:00 85 08/07/17 23:56 96.8 69 18 157/76 95 Room Air 08/07/17 23:21 68 20 97 Room Air 08/07/17 23:20 65 20 95 Room Air 08/07/17 20:00 70 20 96 Room Air 08/07/17 20:00 66 08/07/17 20:00 94 Room Air 08/07/17 20:00 Room Air 08/07/17 20:00 98.1 64 18 134/71 97 Room Air 08/07/17 19:55 67 20 94 Room Air 08/07/17 16:00 61 08/07/17 16:00 97.7 66 20 137/69 94 Room Air 08/07/17 15:42 64 24 99 Room Air 08/07/17 15:36 62 24 95 Room Air 08/07/17 12:00 97.5 61 18 139/67 97 Room Air 08/07/17 12:00 66 08/07/17 11:04 63 20 99 Room Air 08/07/17 10:53 61 20 95 Room Air 08/07/17 10:17 62 144/69 08/07/17 10:17 62 144/69 08/07/17 10:16 144/69 Laboratory Tests 08/08/17 10:00: Sodium Level [Pending], Potassium Level [Pending], Chloride Level [Pending], Carbon Dioxide Level [Pending], Blood Urea Nitrogen [Pending], Creatinine [ Pending], Estimat Glomerular Filtration Rate [Pending], Glucose Level [Pending] , Calcium Level [Pending], Vancomycin Level Trough [Pending] Height (Feet): 5 Height (Inches): 4.00 Weight (Pounds): 131 General Appearance: no apparent distress, alert EENT: other - edent Neck: supple Cardiovascular: regular rhythm Respiratory/Chest: rhonchi - bilaterally Abdomen: soft, no mass Edema: no edema noted Arm (L), no edema noted Arm (R), no edema noted Leg (L), no edema noted Leg (R), no edema noted Pedal (L), no edema noted Pedal (R), no edema noted Generalized Neurologic: other - dysarthric Skin: other - ophelia cyst neck HODAN GAYTAN Aug 08, 2017 10:08
--- NOTE | 2017-08-08 10:19 | Consultation ---
Consult Note Assessment/Plan 1. Decompensated heart failure. 2. Chronic obstructive pulmonary disease exacerbation. 3. Possible left lower lobe infiltrate. 4. UTI 5. Abdominal pain 6. Expressive aphasia 7. hx of prostate CA PLAN: diuresis per cardiology repeat CXR in am nebs, steroids bladder scan ERIN ARIAS Aug 08, 2017 10:19
[2017-08-08 10:21] LABS: ANION GAP 6 mmol/L (5-15); CALCIUM 9.1 MG/DL (8.5-10.1); CARBON DIOXIDE 30 MMOL/L (21-32); CHLORIDE 107 MMOL/L (98-107); CREATININE 1.1 MG/DL (0.55-1.30); POTASSIUM 4.7 MMOL/L (3.5-5.1); SODIUM 143 MMOL/L (136-145)
[2017-08-08] MEDS: Furosemide 80mg tab ORAL SCH ×2 (10:40→21:22)
[2017-08-08] MEDS: Spironolactone 25mg tab ORAL SCH (10:40)
[2017-08-08] MEDS: Heparin 5000 units/ml inj SUBQ SCH ×2 (10:42→21:00)
[2017-08-08] MEDS ORDERED: Bisacodyl EC 5mg tab ORAL ONE (11:00)
[2017-08-08] MEDS: Vancomycin 1250mg/D5W 250ml IVPB SCH (11:09)
[2017-08-08 12:00] VITALS: BP 149/73
--- NOTE | 2017-08-08 15:30 | Progress Note ---
DATE: 08/08/2017 CARDIOLOGY PROGRESS NOTE SUBJECTIVE: The patient without distress and no shortness of breath noted overnight. OBJECTIVE: VITAL SIGNS: Blood pressure 142/78, pulse 53, respirations 18, and room air oxygen saturation 95%. NECK: Supple. LUNGS: With coarse breath sounds. No active wheezing. CARDIAC: Regular rhythm and rate. Normal S1, S2 with a 1/6 systolic murmur at apex. ABDOMEN: Soft. EXTREMITIES: Without edema. IMPRESSION: 1. Chronic obstructive pulmonary disease exacerbation. 2. Acute bronchospasm. 3. Acute on chronic systolic and diastolic congestive heart failure. 4. Permanent pacemaker with stable function. 5. Paroxysmal atrial ectopy. PLAN: Steroid taper bronchodilators, diuresis, titrate antihypertensive and anti-failure regimen based on clinical parameters. Chay Godinez M.D. DR: ZAKIYA JOB#: [id number] CC:
[2017-08-08 16:00] VITALS: BP 133/77
--- NOTE | 2017-08-08 17:15 | Consultation ---
DATE OF CONSULTATION: 08/08/2017 PULMONARY CONSULTATION CONSULTING PHYSICIAN: Liban Hammer M.D. REFERRING PHYSICIAN: Martienz Rubalcava M.D. CHIEF COMPLAINT: The patient is seen because of shortness of breath and wheezing. HISTORY OF PRESENT ILLNESS: The patient has a history of COPD and CHF. He was admitted several days ago with increasing symptoms of shortness of breath and cough with wheezing. He was treated with bronchodilator, steroids, diuretics and has improved somewhat. Dr. Rubalcava has asked me to see him for additional recommendations regarding optimizing his treatment. PAST MEDICAL HISTORY: Includes COPD, systolic and diastolic CHF, pacemaker, atrial fibrillation, past stroke with dysarthria, aphasia and prostate cancer. ALLERGIES: VINCENT inhibitors and shellfish. REVIEW OF SYSTEMS: Cannot be obtained. MEDICATIONS: Reviewed. PHYSICAL EXAMINATION: GENERAL: The patient is alert and responsive but he is aphasic and dysarthric. He cannot make his needs known. VITAL SIGNS: Stable. He is chronically ill and malnourished. HEENT: The head is normocephalic. NECK: Has jugular vein distention. A pacemaker is in the right upper chest. LUNGS: Have moderate wheezing at this time. CARDIAC: Rhythm is regular. ABDOMEN: Soft, but mildly distended. Liver and spleen are not felt. EXTREMITIES: Have no clubbing or cyanosis. There is 1+ edema and chronic stasis changes. PLAN: The patient will continue on congestive heart failure regimen recommended by Dr. Godinez. We will repeat a chest x-ray, and continue bronchodilators and steroids. I spoke with Dr. Rubalcava and he will get a bladder scan regarding the abdominal distention. Thank you for asking me to see in consultation. I will follow closely with you. Liban Hammer M.D. DR: SWAPNA JOB#: [id number] CC: Martinez Rubalcava M.D.; Fax#: [phone] LIBAN HAMMER M.D. ; FAX#: [phone]
[2017-08-08 20:00] VITALS: BP 143/84
[2017-08-08] MEDS: Iron Sucrose 100 MG in NS 55 ML IV SCH (21:09)
[2017-08-08] MEDS: Atorvastatin 20mg tab ORAL SCH (21:22)
[2017-08-09] VITALS: BP 138/83
[2017-08-09] MEDS: Albuterol/Ipratropium 3ml neb HHN SCH ×6 (03:23→23:38)
[2017-08-09 04:00] VITALS: BP 156/85
[2017-08-09] MEDS: Magnesium Oxide 400mg tab ORAL SCH ×2 (06:40→16:43)
[2017-08-09 07:54] LABS: BASOPHILS % (AUTO) 0.9 % (0.0-2.0); EOSINOPHILS % (AUTO) 0.1 % (0.0-3.0); LYMPHOCYTES % (AUTO) 9.7 % (20.0-45.0); MEAN CORPUSCULAR HEMOGLOBIN 29.1 PG (27.0-31.0); MEAN CORPUSCULAR HGB CONC 31.4 G/DL (32.0-36.0); MEAN CORPUSCULAR VOLUME 93 FL (80-99); MEAN PLATELET VOLUME 8.7 FL (6.5-10.1); MONOCYTES % (AUTO) 11.8 % (1.0-10.0); NEUTROPHILS % (AUTO) 77.5 % (45.0-75.0); PLATELET COUNT 123 K/UL (150-450); RED BLOOD COUNT 3.59 M/UL (4.70-6.10); RED CELL DISTRIBUTION WIDTH 16.1 % (11.6-14.8); WHITE BLOOD COUNT 8.7 K/UL (4.8-10.8)
[2017-08-09 08:02] VITALS: BP 165/67
[2017-08-09 08:17] LABS: ANION GAP 7 mmol/L (5-15); CALCIUM 9.2 MG/DL (8.5-10.1); CARBON DIOXIDE 30 MMOL/L (21-32); CHLORIDE 103 MMOL/L (98-107); CREATININE 1.2 MG/DL (0.55-1.30); POTASSIUM 4.3 MMOL/L (3.5-5.1); SODIUM 140 MMOL/L (136-145)
--- NOTE | 2017-08-09 08:53 | General Progress Note ---
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 SNOMED: 349185557 (4) COPD exacerbation ICD Codes: J44.1 - Chronic obstructive pulmonary disease with (acute) exacerbation SNOMED: 543448594501296 (5) Anemia ICD Codes: D64.9 - Anemia SNOMED: 867686860 (6) Atrial fibrillation ICD Codes: I48.91 - Atrial fibrillation SNOMED: 44108136 Assessment/Plan continue diuresis, antibiotics, taper steroids, discussed need to take all meds still mod-sever bronchospasm, bp high increase dose diltiazem Subjective Constitutional: Reports: weakness HEENT: Reports: no symptoms Respiratory: Reports: cough, shortness of breath Gastrointestinal/Abdominal: Reports: no symptoms Genitourinary: Reports: urgency Neurologic/Psychiatric: Reports: pre-existing deficit Endocrine: Reports: no symptoms Hematologic/Lymphatic: Reports: anemia Allergies: Coded Allergies: VINCENT INHIBITORS (Verified Allergy, Mild, 08/06/17) SHELLFISH (Verified Allergy, Unknown, 07/01/11) Objective Last 24 Hour Vital Signs Date Time Temp Pulse Resp B/P (MAP) Pulse Ox O2 Delivery O2 Flow Rate FiO2 08/09/17 08:02 96.3 68 20 165/67 95 Room Air 08/09/17 07:15 71 18 97 Nasal Cannula 2.0 28 08/09/17 07:00 69 18 97 Nasal Cannula 2.0 28 08/09/17 07:00 Nasal Cannula 2.0 28 08/09/17 07:00 97 Nasal Cannula 2.0 21 08/09/17 07:00 28 08/09/17 04:00 97.3 63 20 156/85 95 Room Air 08/09/17 04:00 88 08/09/17 03:33 68 20 98 Room Air 21 08/09/17 03:24 68 20 96 Room Air 21 08/09/17 00:00 87 08/09/17 00:00 98.1 65 22 138/83 96 Room Air 08/08/17 23:36 Room Air 08/08/17 23:36 Room Air 08/08/17 20:00 69 08/08/17 20:00 96.8 64 20 143/84 96 Room Air 08/08/17 19:50 69 20 99 Room Air 08/08/17 19:40 96 Room Air 08/08/17 19:40 75 22 96 Room Air 08/08/17 19:40 Room Air 08/08/17 16:00 66 08/08/17 16:00 97.2 62 20 133/77 96 Room Air 08/08/17 14:45 66 18 98 Room Air 21 08/08/17 14:40 61 18 97 Room Air 08/08/17 12:00 69 08/08/17 12:00 97.7 70 20 149/73 98 Room Air 08/08/17 11:19 70 18 98 Room Air 08/08/17 11:08 75 18 95 Room Air 08/08/17 09:27 70 131/79 08/08/17 09:27 70 131/79 08/08/17 09:26 131/79 Intake and Output 08/09/17 08/10/17 19:00 07:00 Intake Total 240 ml Balance 240 ml Intake Oral 240 ml Laboratory Tests 08/08/17 10:00: Sodium Level 143, Potassium Level 4.7, Chloride Level 107, Carbon Dioxide Level 30, Anion Gap 6, Blood Urea Nitrogen 19H, Creatinine 1.1, Estimat Glomerular Filtration Rate , Glucose Level 113H, Calcium Level 9.1, Vancomycin Level Trough 13.3H 08/09/17 07:20: Sodium Level 140, Potassium Level 4.3, Chloride Level 103, Carbon Dioxide Level 30, Anion Gap 7, Blood Urea Nitrogen 20H, Creatinine 1.2, Estimat Glomerular Filtration Rate , Glucose Level 90, Calcium Level 9.2, White Blood Count 8.7, Red Blood Count 3.59L, Hemoglobin 10.5L, Hematocrit 33.3L, Mean Corpuscular Volume 93, Mean Corpuscular Hemoglobin 29.1, Mean Corpuscular Hemoglobin Concent 31.4L, Red Cell Distribution Width 16.1H, Platelet Count 123L, Mean Platelet Volume 8.7, Neutrophils (%) (Auto) 77.5H, Lymphocytes (%) (Auto) 9.7L, Monocytes (%) (Auto) 11.8H, Eosinophils (%) (Auto) 0.1, Basophils (%) (Auto) 0.9 , Pro-B-Type Natriuretic Peptide 9759H Height (Feet): 5 Height (Inches): 4.00 Weight (Pounds): 131 General Appearance: no apparent distress, alert EENT: other - edent Cardiovascular: regular rhythm Respiratory/Chest: decreased breath sounds, rhonchi - bilaterally Abdomen: non tender Edema: no edema noted Arm (L), no edema noted Arm (R), no edema noted Leg (L), no edema noted Leg (R), no edema noted Pedal (L), no edema noted Pedal (R), no edema noted Generalized HODAN GAYTAN Aug 09, 2017 08:53
[2017-08-09] MEDS: Docusate 250mg cap ORAL SCH ×2 (09:00→18:05)
[2017-08-09] MEDS: Heparin 5000 units/ml inj SUBQ SCH ×2 (09:00→21:00)
[2017-08-09] MEDS: dilTIAZem HCl CD 240mg cap ORAL SCH (09:14)
[2017-08-09] MEDS: Spironolactone 25mg tab ORAL SCH (09:14)
[2017-08-09] MEDS: Aspirin EC 81mg tab ORAL SCH (09:15)
[2017-08-09] MEDS: Metoprolol Succinate XL 50mg tab ORAL SCH (09:15)
[2017-08-09] MEDS: cefTRIAXone 1 GM in D5W 55 ML IVPB SCH (09:16)
[2017-08-09] MEDS: Furosemide 80mg tab ORAL SCH ×2 (09:16→20:58)
[2017-08-09] MEDS: Azithromycin 250mg tab ORAL SCH (09:17)
[2017-08-09] MEDS: Losartan 50mg tab ORAL SCH (09:17)
[2017-08-09] MEDS: Solu-MEDROL 40mg Inj IVP SCH (09:24)
[2017-08-09] MEDS: guaiFENesin DM 100mg/5ml ORAL PRN (09:25)
[2017-08-09] MEDS ORDERED: Tubing IV Secondary IV ONE (10:48)
[2017-08-09] MEDS ORDERED: NS 275ml ONE (10:48)
[2017-08-09 11:29] VITALS: BP 159/94
[2017-08-09] MEDS: Vancomycin 1250mg/D5W 250ml IVPB SCH (11:31)
--- NOTE | 2017-08-09 13:14 | Diagnostic Imaging Report ---
Indication: SOB Technique: One view of the chest Comparison: 08/07/17 Findings: The heart is enlarged. Interstitial congestion persists. There is a right chest bifocal pacemaker. Large right pleural effusion is unchanged Impression: Unchanged, over 4 days, findings as above.
--- NOTE | 2017-08-09 13:56 | Pulmonology Progress Note ---
Assessment/Plan Assessment/Plan COPD exac CHF abd pain and distension PVR low, no bladder distension will check KUB and US note high alk phos, poss GB disease BNP higher cont rx CHF Subjective ROS Limited/Unobtainable: Yes Respiratory: Reports: dry cough, shortness of breath Gastrointestinal/Abdominal: Reports: other - pain Allergies: Coded Allergies: VINCENT INHIBITORS (Verified Allergy, Mild, 08/06/17) SHELLFISH (Verified Allergy, Unknown, 07/01/11) Objective Last 24 Hour Vital Signs Date Time Temp Pulse Resp B/P (MAP) Pulse Ox O2 Delivery O2 Flow Rate FiO2 08/09/17 11:29 97.9 68 20 159/94 100 Room Air 08/09/17 11:14 68 20 95 Room Air 2.0 28 08/09/17 10:59 28 08/09/17 10:59 68 20 95 Room Air 2.0 28 08/09/17 09:17 165/67 08/09/17 09:15 68 165/67 08/09/17 09:14 68 165/67 08/09/17 08:02 96.3 68 20 165/67 95 Room Air 08/09/17 08:00 72 08/09/17 07:15 71 18 97 Nasal Cannula 2.0 28 08/09/17 07:00 69 18 97 Nasal Cannula 2.0 28 08/09/17 07:00 Nasal Cannula 2.0 28 08/09/17 07:00 97 Nasal Cannula 2.0 21 08/09/17 07:00 28 08/09/17 04:00 97.3 63 20 156/85 95 Room Air 08/09/17 04:00 88 08/09/17 03:33 68 20 98 Room Air 08/09/17 03:24 68 20 96 Room Air 08/09/17 00:00 87 08/09/17 00:00 98.1 65 22 138/83 96 Room Air 08/08/17 23:36 Room Air 08/08/17 23:36 Room Air 08/08/17 20:00 69 08/08/17 20:00 96.8 64 20 143/84 96 Room Air 08/08/17 19:50 69 20 99 Room Air 08/08/17 19:40 96 Room Air 08/08/17 19:40 75 22 96 Room Air 08/08/17 19:40 Room Air 08/08/17 16:00 66 08/08/17 16:00 97.2 62 20 133/77 96 Room Air 08/08/17 14:45 66 18 98 Room Air 21 08/08/17 14:40 61 18 97 Room Air 21 Intake and Output 08/09/17 08/10/17 19:00 07:00 Intake Total 240 ml Output Total 250 ml Balance -10 ml Intake Oral 240 ml Output Urine Total 250 ml General Appearance: no acute distress HEENT: atraumatic Respiratory/Chest: expiratory wheezing Cardiovascular: normal rate Abdomen: distended Laboratory Tests 08/09/17 07:20: White Blood Count 8.7, Red Blood Count 3.59L, Hemoglobin 10.5L, Hematocrit 33.3L , Mean Corpuscular Volume 93, Mean Corpuscular Hemoglobin 29.1, Mean Corpuscular Hemoglobin Concent 31.4L, Red Cell Distribution Width 16.1H, Platelet Count 123L, Mean Platelet Volume 8.7, Neutrophils (%) (Auto) 77.5H, Lymphocytes (%) (Auto) 9.7L, Monocytes (%) (Auto) 11.8H, Eosinophils (%) (Auto) 0.1, Basophils (%) (Auto) 0.9, Sodium Level 140, Potassium Level 4.3, Chloride Level 103, Carbon Dioxide Level 30, Anion Gap 7, Blood Urea Nitrogen 20H, Creatinine 1.2, Estimat Glomerular Filtration Rate , Glucose Level 90, Calcium Level 9.2, Pro-B-Type Natriuretic Peptide 9759H Current Medications Medications (Trade) Dose Ordered Sig/Scot Route PRN Reason Start Time Stop Time Status Last Admin Dose Admin Acetaminophen (Tylenol) 500 mg Q4H PRN ORAL Mild Pain/Temp > 100.5 08/05/17 22:00 09/04/17 21:59 08/06/17 02:09 Acetaminophen (Tylenol) 1,000 mg Q8H PRN ORAL Mild Pain/Temp > 100.5 08/06/17 00:00 09/05/17 00:00 08/09/17 04:20 Albuterol/ Ipratropium (Albuterol/ Ipratropium) 3 ml Q4HRT HHN 08/05/17 23:00 08/10/17 22:59 08/09/17 11:00 Aspirin (Ecotrin) 81 mg DAILY ORAL 08/06/17 10:00 09/05/17 09:59 08/09/17 09:15 Atorvastatin Calcium (Lipitor) 20 mg BEDTIME ORAL 08/06/17 21:00 09/05/17 20:59 08/08/17 21:22 Azithromycin (Zithromax) 250 mg DAILY ORAL 08/06/17 09:00 08/13/17 08:59 08/09/17 09:17 Ceftriaxone Sodium 1 gm/ Dextrose 55 ml @ 110 mls/hr Q24HRS IVPB 08/06/17 09:00 08/13/17 08:59 08/09/17 09:16 Diltiazem HCl (Cardizem CD) 240 mg DAILY ORAL 08/09/17 09:30 09/08/17 09:29 08/09/17 09:14 Docusate Sodium (Colace) 250 mg BID ORAL 08/06/17 09:00 09/05/17 08:59 08/08/17 09:27 Finasteride (Proscar) 5 mg DAILY ORAL 08/06/17 09:00 09/05/17 08:59 08/09/17 09:17 Furosemide (Lasix) 80 mg EVERY 12 HOURS ORAL 08/06/17 09:00 09/05/17 08:59 08/09/17 09:16 Guaifenesin/ Dextromethorphan (Robitussin DM) 5 ml Q4H PRN ORAL For Cough 08/07/17 11:30 09/06/17 11:29 08/09/17 09:25 Heparin Sodium (Porcine) (Heparin 5000 units/ml) 5,000 units EVERY 12 HOURS SUBQ 08/06/17 09:00 09/05/17 08:59 08/08/17 10:42 Iron Sucrose 100 mg/Sodium Chloride 60 ml @ 240 mls/hr QHS IV 08/06/17 21:00 08/11/17 20:59 08/08/17 21:09 Losartan Potassium (Cozaar) 50 mg DAILY ORAL 08/06/17 09:00 09/05/17 08:59 08/09/17 09:17 Magnesium Oxide (Mag-Ox 400mg) 400 mg BIAC ORAL 08/06/17 06:30 09/05/17 06:29 08/09/17 06:40 Methylprednisolone Sodium Succinate (Solu-MEDROL) 20 mg DAILY IVP 08/08/17 09:00 09/07/17 08:59 08/09/17 09:24 Metoprolol Succinate (Toprol XL) 50 mg DAILY ORAL 08/06/17 10:00 09/05/17 09:59 08/09/17 09:15 Pantoprazole (Protonix) 40 mg DAILY ORAL 08/06/17 09:00 09/05/17 08:59 08/09/17 09:15 Prazosin HCl (Minipress) 5 mg QHS ORAL 08/06/17 09:00 09/05/17 08:59 08/08/17 21:23 Spironolactone (Aldactone) 25 mg DAILY ORAL 08/08/17 10:30 09/07/17 10:29 08/09/17 09:14 Vancomycin HCl (Vanco rx to dose) 1 ea DAILY PRN MISC Per rx protocol 08/06/17 10:45 09/05/17 10:44 Vancomycin HCl/ Dextrose 250 ml @ 166.667 mls/hr Q24H IVPB 08/07/17 11:00 08/12/17 10:59 08/09/17 11:31 ERIN ARIAS Aug 09, 2017 13:56
[2017-08-09 15:38] VITALS: BP 147/79
[2017-08-09 20:22] VITALS: BP 155/80
[2017-08-09] MEDS: Iron Sucrose 100 MG in NS 55 ML IV SCH (20:58)
[2017-08-09] MEDS: Atorvastatin 20mg tab ORAL SCH (20:59)
[2017-08-10] VITALS (7 sets, daily range): BP systolic 116–151; BP diastolic 64–74
[2017-08-10] MEDS: Albuterol/Ipratropium 3ml neb HHN SCH ×6 (03:11→23:39)
[2017-08-10] MEDS: Magnesium Oxide 400mg tab ORAL SCH ×2 (06:35→15:57)
[2017-08-10 08:04] LABS: EOSINOPHILS % (AUTO) 0.1 % (0.0-3.0); LYMPHOCYTES % (AUTO) 7.6 % (20.0-45.0); MEAN CORPUSCULAR HEMOGLOBIN 28.8 PG (27.0-31.0); MEAN CORPUSCULAR HGB CONC 31.6 G/DL (32.0-36.0); MEAN CORPUSCULAR VOLUME 91 FL (80-99); MEAN PLATELET VOLUME 8.6 FL (6.5-10.1); MONOCYTES % (AUTO) 11.1 % (1.0-10.0); NEUTROPHILS % (AUTO) 80.3 % (45.0-75.0); PLATELET COUNT 110 K/UL (150-450); RED BLOOD COUNT 3.41 M/UL (4.70-6.10); RED CELL DISTRIBUTION WIDTH 16.3 % (11.6-14.8)
[2017-08-10] MEDS: cefTRIAXone 1 GM in D5W 55 ML IVPB SCH (08:21)
[2017-08-10] MEDS: Aspirin EC 81mg tab ORAL SCH (08:24)
[2017-08-10] MEDS: Furosemide 80mg tab ORAL SCH ×2 (08:24→21:01)
[2017-08-10] MEDS: Docusate 250mg cap ORAL SCH ×2 (08:24→17:18)
[2017-08-10] MEDS: Spironolactone 25mg tab ORAL SCH (08:24)
[2017-08-10] MEDS: Metoprolol Succinate XL 50mg tab ORAL SCH (08:24)
[2017-08-10] MEDS: Azithromycin 250mg tab ORAL SCH (08:25)
[2017-08-10] MEDS: Solu-MEDROL 40mg Inj IVP SCH (08:25)
[2017-08-10] MEDS: dilTIAZem HCl CD 240mg cap ORAL SCH (08:25)
[2017-08-10] MEDS: Losartan 50mg tab ORAL SCH (08:25)
[2017-08-10] MEDS: Heparin 5000 units/ml inj SUBQ SCH ×2 (08:26→20:51)
[2017-08-10 08:51] LABS: ALANINE AMINOTRANSFERASE 26 U/L (12-78); ALBUMIN/GLOBULIN RATIO 0.5 (1.0-2.7); ANION GAP 6 mmol/L (5-15); ASPARTATE AMINO TRANSFERASE 35 U/L (15-37); CALCIUM 8.9 MG/DL (8.5-10.1); CARBON DIOXIDE 29 MMOL/L (21-32); CHLORIDE 99 MMOL/L (98-107); POTASSIUM 3.8 MMOL/L (3.5-5.1); SODIUM 134 MMOL/L (136-145); TOTAL PROTEIN 7.8 G/DL (6.4-8.2)
[2017-08-10] MEDS: Vancomycin 1250mg/D5W 250ml IVPB SCH (10:53)
--- NOTE | 2017-08-10 11:08 | Diagnostic Imaging Report ---
Indication: Elevated liver function test Technique: Ultrasound of the abdomen. Comparison: 06/20/15 Findings: Pancreas is not well-visualized. Liver measures 13.5 cm. There is slight increased echogenicity of the liver. No gross focal liver lesions are identified. Main portal vein is patent. Hepatic IVC is distended. There is trace ascites adjacent to the liver. Bilateral pleural effusions are present. Gallstones are present. Gallbladder wall thickness is within normal limits. Sonographic Ahumada's is negative. Common bile duct measures 4 mm. Bilateral kidneys demonstrate normal echogenicity. No focal renal lesions are seen. There is no hydronephrosis. No echogenic renal stones are identified. The spleen is normal in size and echogenicity. The visualized aorta is normal in caliber. Visualized portions of the inferior vena cava are unremarkable. Impression: Cholelithiasis. No sonographic evidence of acute cholecystitis. Bilateral pleural effusions. Trace ascites adjacent to liver. Slight increased echogenicity of the liver may suggest underlying hepatocellular disease. Dilated intrahepatic IVC suggestive of hepatic congestion. Clinical correlation recommended. Other findings as above.
--- NOTE | 2017-08-10 11:15 | Diagnostic Imaging Report ---
Indication: Abdominal pain Technique: Supine views of the abdomen. Comparison: 02/23/17 Findings: There is gaseous distention of the stomach. Gas is also noted in the small bowel and colon. There is a left hip arthroplasty. Please refer to separate dictation of the chest for findings regarding the chest. Degenerative changes of the spine are seen. Atherosclerotic changes are present. Impression: Gaseous distention of the stomach. Clinical correlation recommended. Otherwise nonspecific bowel gas pattern with gas in nondilated small bowel and colon.
[2017-08-10] MEDS ORDERED: PREDNISONE10 M2 PO (13:23)
[2017-08-10] MEDS ORDERED: ALDACTONE25 MG ORAL (13:23)
[2017-08-10] MEDS ORDERED: FUROSEMIDE80 MG ORAL (13:23)
[2017-08-10] MEDS ORDERED: DOXYCYCLINE MO100 MG ORAL (13:23)
--- NOTE | 2017-08-10 17:25 | Pulmonology Progress Note ---
Assessment/Plan Assessment/Plan Assessment/Plan COPD exac CHF abd pain and distension PVR low, no bladder distension will check KUB and US note high alk phos, poss GB disease BNP higher cont rx CHF Subjective ROS Limited/Unobtainable: Yes Allergies: Coded Allergies: VINCENT INHIBITORS (Verified Allergy, Mild, 08/06/17) SHELLFISH (Verified Allergy, Unknown, 07/01/11) Subjective toelrating po no distress on o2 no fever no cp nv or bleeding Objective Last 24 Hour Vital Signs Date Time Temp Pulse Resp B/P (MAP) Pulse Ox O2 Delivery O2 Flow Rate FiO2 08/10/17 16:00 97.0 68 21 134/72 97 Room Air 08/10/17 16:00 66 08/10/17 15:31 Room Air 08/10/17 15:18 Room Air 08/10/17 12:00 79 08/10/17 12:00 97.7 71 22 136/74 97 08/10/17 11:03 63 20 98 Room Air 08/10/17 10:47 63 20 99 Room Air 08/10/17 08:25 61 116/67 08/10/17 08:25 116/67 08/10/17 08:24 61 116/67 08/10/17 08:00 69 08/10/17 08:00 95.9 61 16 116/67 97 Room Air 08/10/17 07:42 75 20 98 Room Air 08/10/17 07:27 83 20 97 Room Air 08/10/17 07:26 Room Air 08/10/17 07:26 97 Room Air 08/10/17 04:50 96.9 80 18 149/67 94 Room Air 08/10/17 04:00 65 08/10/17 03:25 81 20 98 Room Air 08/10/17 03:11 79 22 96 Room Air 08/10/17 00:32 96.4 68 18 148/64 90 Room Air 08/10/17 00:00 75 08/09/17 23:46 68 20 99 Room Air 21 08/09/17 23:37 08/09/17 23:37 61 18 97 Room Air 08/09/17 20:22 97.7 76 18 155/80 92 Room Air 08/09/17 20:00 65 08/09/17 19:48 67 20 99 Room Air 21 08/09/17 19:38 11/24/17 19:38 Room Air 08/09/17 19:38 96 Room Air 21 08/09/17 19:38 65 20 96 Room Air Intake and Output 08/10/17 08/11/17 19:00 07:00 Intake Total 250 ml Balance 250 ml IV Total 250 ml General Appearance: cachetic HEENT: atraumatic, anicteric Respiratory/Chest: lungs clear, normal breath sounds, no respiratory distress Cardiovascular: normal rate, regularly irregular Abdomen: soft, non tender, no organomegaly Extremities: no cyanosis Skin: no lesions Neurologic/Psychiatric: alert Laboratory Tests 08/10/17 07:20: White Blood Count 8.0, Red Blood Count 3.41L, Hemoglobin 9.8L, Hematocrit 31.1L , Mean Corpuscular Volume 91, Mean Corpuscular Hemoglobin 28.8, Mean Corpuscular Hemoglobin Concent 31.6L, Red Cell Distribution Width 16.3H, Platelet Count 110L, Mean Platelet Volume 8.6, Neutrophils (%) (Auto) 80.3H, Lymphocytes (%) (Auto) 7.6L, Monocytes (%) (Auto) 11.1H, Eosinophils (%) (Auto) 0.1, Basophils (%) (Auto) 1.0, Sodium Level 134L, Potassium Level 3.8, Chloride Level 99, Carbon Dioxide Level 29, Anion Gap 6, Blood Urea Nitrogen 19H, Creatinine 1.0, Estimat Glomerular Filtration Rate , Glucose Level 97, Calcium Level 8.9, Total Bilirubin 0.5, Aspartate Amino Transf (AST/SGOT) 35, Alanine Aminotransferase (ALT/SGPT) 26, Alkaline Phosphatase 106, Total Protein 7.8, Albumin 2.6L, Globulin 5.2, Albumin/Globulin Ratio 0.5L, Amylase Level 124H Current Medications Medications (Trade) Dose Ordered Sig/Scot Route PRN Reason Start Time Stop Time Status Last Admin Dose Admin Acetaminophen (Tylenol) 500 mg Q4H PRN ORAL Mild Pain/Temp > 100.5 08/05/17 22:00 09/04/17 21:59 08/06/17 02:09 Acetaminophen (Tylenol) 1,000 mg Q8H PRN ORAL Mild Pain/Temp > 100.5 08/06/17 00:00 09/05/17 00:00 08/09/17 04:20 Albuterol/ Ipratropium (Albuterol/ Ipratropium) 3 ml Q4HRT HHN 08/05/17 23:00 08/10/17 22:59 08/10/17 10:44 Aspirin (Ecotrin) 81 mg DAILY ORAL 08/06/17 10:00 09/05/17 09:59 08/10/17 08:24 Atorvastatin Calcium (Lipitor) 20 mg BEDTIME ORAL 08/06/17 21:00 09/05/17 20:59 08/09/17 20:59 Azithromycin (Zithromax) 250 mg DAILY ORAL 08/06/17 09:00 08/13/17 08:59 08/10/17 08:25 Ceftriaxone Sodium 1 gm/ Dextrose 55 ml @ 110 mls/hr Q24HRS IVPB 08/06/17 09:00 08/13/17 08:59 08/10/17 08:21 Diltiazem HCl (Cardizem CD) 240 mg DAILY ORAL 08/09/17 09:30 09/08/17 09:29 08/10/17 08:25 Docusate Sodium (Colace) 250 mg BID ORAL 08/06/17 09:00 09/05/17 08:59 08/10/17 17:18 Finasteride (Proscar) 5 mg DAILY ORAL 08/06/17 09:00 09/05/17 08:59 08/10/17 08:26 Furosemide (Lasix) 80 mg EVERY 12 HOURS ORAL 08/06/17 09:00 09/05/17 08:59 08/10/17 08:24 Guaifenesin/ Dextromethorphan (Robitussin DM) 5 ml Q4H PRN ORAL For Cough 08/07/17 11:30 09/06/17 11:29 08/09/17 09:25 Heparin Sodium (Porcine) (Heparin 5000 units/ml) 5,000 units EVERY 12 HOURS SUBQ 08/06/17 09:00 09/05/17 08:59 08/08/17 10:42 Iron Sucrose 100 mg/Sodium Chloride 60 ml @ 240 mls/hr QHS IV 08/06/17 21:00 08/11/17 20:59 08/09/17 20:58 Losartan Potassium (Cozaar) 50 mg DAILY ORAL 08/06/17 09:00 09/05/17 08:59 08/10/17 08:25 Magnesium Oxide (Mag-Ox 400mg) 400 mg BIAC ORAL 08/06/17 06:30 09/05/17 06:29 08/10/17 15:57 Methylprednisolone Sodium Succinate (Solu-MEDROL) 20 mg DAILY IVP 08/08/17 09:00 09/07/17 08:59 08/10/17 08:25 Metoprolol Succinate (Toprol XL) 50 mg DAILY ORAL 08/06/17 10:00 09/05/17 09:59 08/10/17 08:24 Pantoprazole (Protonix) 40 mg ACBREAKFAST ORAL 08/10/17 09:00 09/05/17 08:59 Prazosin HCl (Minipress) 5 mg QHS ORAL 08/06/17 09:00 09/05/17 08:59 08/09/17 20:59 Spironolactone (Aldactone) 25 mg DAILY ORAL 08/08/17 10:30 09/07/17 10:29 08/10/17 08:24 Vancomycin HCl (Vanco rx to dose) 1 ea DAILY PRN MISC Per rx protocol 08/06/17 10:45 09/05/17 10:44 Vancomycin HCl/ Dextrose 250 ml @ 166.667 mls/hr Q24H IVPB 08/07/17 11:00 08/12/17 10:59 08/10/17 10:53 PIERRE GRIFFIN DO Aug 10, 2017 17:25
[2017-08-10] MEDS: Iron Sucrose 100 MG in NS 55 ML IV SCH (21:00)
[2017-08-10] MEDS: Atorvastatin 20mg tab ORAL SCH (21:01)
--- NOTE | 2017-08-10 21:15 | Discharge Summary ---
DATE OF ADMISSION: 08/05/2017 DATE OF DISCHARGE: 08/11/2017 PERTINENT HISTORY: The patient is a 72-year-old man, admitted with shortness of breath, weakness, and sebaceous cyst. He has a history of congestive heart failure systolic, chronic obstructive pulmonary disease, atrial fibrillation, permanent pacemaker, and prior gastrointestinal bleeding. PERTINENT PHYSICAL FINDINGS: See the dictated History and Physical. HEAD EYES, EARS, NOSE, AND THROAT: He is edentulous. NECK: There is no adenopathy. There is a sebaceous cyst with the blood clots, slight drainage in the posterior part of the neck. LUNGS: Bilateral rhonchi and a harsh cough. HEART: Regular rhythm with a 2/6 systolic ejection murmur. ABDOMEN: Soft without organomegaly. EXTREMITIES: No edema. COURSE IN THE HOSPITAL: The patient was placed on a regimen for chronic obstructive pulmonary disease with nebulizer treatment, steroids, and empiric antibiotics. He also had his Lasix dose increased for his congestive heart failure. He was given wound care to the sebaceous cyst. Wound grew coag-negative Staph. The patient had a slow gradual improvement of his breathing and sebaceous cyst. VITAL SIGNS: The patient on the day of discharge, had stable vital signs. LUNGS: Few rhonchi. No distress. HEART: Regular rhythm with a systolic murmur. EXTREMITIES: No edema. NEUROLOGIC: He was alert and ambulatory, and he was discharged home in stable condition. FINAL DIAGNOSES: 1. Chronic obstructive pulmonary disease with acute exacerbation. 2. Acute bronchitis. 3. Congestive heart failure, acute on chronic with systolic and diastolic dysfunction. 4. Atrial fibrillation. 5. Anemia, iron deficiency. 6. Sebaceous cyst, neck. 7. Gastritis. 8. History of anemia. 9. History of cerebrovascular accident. DISCHARGE DISPOSITION: Home on a low-salt diet. MEDICATIONS: Per the discharge medication list. FOLLOWUP: Follow up by Dr. Rubalcava in the office. Martinez Rubalcava M.D. DR: JODEE JOB#: [id number] CC: AN
[2017-08-10] MEDS ORDERED: guaiFENesin DM 100mg/5ml ORAL PRN (23:30)
[2017-08-11] VITALS: BP 141/65
[2017-08-11] MEDS ORDERED: Acetaminophen 500mg (ES) tab ORAL PRN ×2 (02:00)
[2017-08-11] MEDS: Albuterol/Ipratropium 3ml neb HHN SCH ×3 (03:58→11:00)
[2017-08-11 04:00] VITALS: BP 136/65
[2017-08-11] MEDS ORDERED: Magnesium Oxide 400mg tab ORAL SCH (06:30)
[2017-08-11 08:00] VITALS: BP 127/78
[2017-08-11] MEDS ORDERED: Aspirin EC 81mg tab ORAL SCH (09:00)
[2017-08-11] MEDS ORDERED: Metoprolol Succinate XL 50mg tab ORAL SCH (09:00)
[2017-08-11] MEDS ORDERED: Docusate 250mg cap ORAL SCH (09:00)
[2017-08-11] MEDS ORDERED: dilTIAZem HCl CD 240mg cap ORAL SCH (09:00)
[2017-08-11] MEDS ORDERED: Spironolactone 25mg tab ORAL SCH (09:00)
[2017-08-11] MEDS ORDERED: Furosemide 80mg tab ORAL SCH (09:00)
[2017-08-11] MEDS ORDERED: cefTRIAXone 1 GM in D5W 55 ML IVPB SCH (09:00)
[2017-08-11] MEDS ORDERED: Azithromycin 250mg tab ORAL SCH (09:00)
[2017-08-11] MEDS ORDERED: Solu-MEDROL 40mg Inj IVP SCH (09:00)
[2017-08-11] MEDS ORDERED: Heparin 5000 units/ml inj SUBQ SCH (09:00)
[2017-08-11] MEDS ORDERED: Losartan 50mg tab ORAL SCH (09:00)
[2017-08-11] MEDS ORDERED: Vancomycin 1250mg/D5W 250ml 250 ML IVPB SCH (11:00)
--- NOTE | 2017-08-11 11:27 | General Progress Note ---
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 SNOMED: 396496047 (4) COPD exacerbation ICD Codes: J44.1 - Chronic obstructive pulmonary disease with (acute) exacerbation SNOMED: 860713302877354 (5) Anemia ICD Codes: D64.9 - Anemia SNOMED: 322734210 (6) Atrial fibrillation ICD Codes: I48.91 - Atrial fibrillation SNOMED: 17456429 Assessment/Plan continue diuresis, antibiotics, taper steroids, discussed need to take all meds still mod-sever bronchospasm, bp high increase dose diltiazem, dc planned and note dictated when I saw him 08/10 but family unable to pick him up until 08/11 Subjective Constitutional: Reports: weakness HEENT: Reports: no symptoms Cardiovascular: Reports: no symptoms Respiratory: Reports: cough, SOB with excertion Gastrointestinal/Abdominal: Reports: no symptoms Genitourinary: Reports: no symptoms Neurologic/Psychiatric: Reports: pre-existing deficit Endocrine: Reports: no symptoms Allergies: Coded Allergies: VINCENT INHIBITORS (Verified Allergy, Mild, 08/06/17) SHELLFISH (Verified Allergy, Unknown, 07/01/11) Objective Last 24 Hour Vital Signs Date Time Temp Pulse Resp B/P (MAP) Pulse Ox O2 Delivery O2 Flow Rate FiO2 08/11/17 08:46 61 127/78 08/11/17 08:45 61 127/78 08/11/17 08:44 127/78 08/11/17 08:15 61 20 99 Room Air 08/11/17 08:14 21 08/11/17 08:13 61 22 100 Room Air 08/11/17 08:06 98 Room Air 21 08/11/17 08:06 62 22 98 Room Air 21 08/11/17 08:06 Room Air 08/11/17 08:00 97.6 19 127/78 96 Room Air 08/11/17 04:24 Room Air 08/11/17 04:09 62 20 99 Nasal Cannula 2.0 28 08/11/17 04:00 98.1 67 19 136/65 95 Room Air 08/11/17 03:57 28 08/11/17 03:57 87 22 90 Room Air 21 08/11/17 01:55 97.3 08/11/17 00:00 97.3 69 21 141/65 95 Room Air 08/11/17 00:00 Room Air 08/10/17 23:46 60 20 99 Room Air 21 08/10/17 23:35 21 08/10/17 23:35 63 16 97 Room Air 21 08/10/17 22:05 Room Air 08/10/17 22:05 97.8 64 21 151/66 94 Room Air 08/10/17 19:55 96.8 65 20 143/71 92 Room Air 08/10/17 19:49 63 22 99 Room Air 21 08/10/17 19:39 Room Air 21 08/10/17 19:39 21 08/10/17 19:39 53 22 93 Room Air 21 08/10/17 19:39 93 Room Air 21 08/10/17 16:00 97.0 68 21 134/72 97 Room Air 08/10/17 16:00 66 08/10/17 15:31 Room Air 08/10/17 15:18 Room Air 08/10/17 12:00 79 08/10/17 12:00 97.7 71 22 136/74 97 Height (Feet): 5 Height (Inches): 4.00 Weight (Pounds): 130 General Appearance: no apparent distress, alert EENT: normal ENT inspection Neck: normal alignment Cardiovascular: regular rhythm Respiratory/Chest: rhonchi - bilaterally Abdomen: non tender, soft Edema: no edema noted Arm (L), no edema noted Arm (R), no edema noted Leg (L), no edema noted Leg (R), no edema noted Pedal (L), no edema noted Pedal (R), no edema noted Generalized Neurologic: other - dysarthric HODAN GAYTAN Aug 11, 2017 11:27
[2017-08-11 12:12] VITALS: BP 146/74
[2017-08-11] MEDS ORDERED: Tubing IV Secondary IV ONE (15:02)
[2017-08-11] MEDS ORDERED: NS 500ML ONE (15:02)
--- NOTE | 2017-08-11 19:45 | Progress Note ---
DATE: 08/11/2017 CARDIOLOGY PROGRESS NOTE SUBJECTIVE: Discharge was held. The patient did not have anybody to take him home. He is comfortable today still with some congestion but improved markedly. PHYSICAL EXAMINATION: VITAL SIGNS: Blood pressure 146/74, pulse 66, respiratory rate 19, afebrile. Earlier blood pressure 127/78. The patient is off monitor. LUNGS: Coarse breath sounds. No wheezing. CARDIAC: Irregularly irregular rhythm. Normal S1, paradoxically split S2. No new murmur. ABDOMEN: Soft. EXTREMITIES: With no edema. IMPRESSION: 1. Acute on chronic diastolic congestive heart failure still with elevated natriuretic peptide essay but clinically improved. 2. Hypertensive heart disease with controlled blood pressure. 3. Permanent pacemaker with stable function based on recent interrogation. 4. Paroxysmal atrial fibrillation, rate controlled. 5. Chronic obstructive pulmonary disease exacerbation, improved. PLAN: 1. Oral medications reviewed. 2. Compliance stressed. 3. Diet discussed. 4. Outpatient follow up for pacemaker interrogation ordered as the battery life is estimated at about a year from now. Chay Godinez M.D. DR: Ellie JOB#: [id number] CC:
--- NOTE | 2017-08-11 19:45 | Progress Note ---
DATE: 08/09/2017 CARDIOLOGY PROGRESS NOTE Late entry for 08/09/2017 SUBJECTIVE: The patient was seen and evaluated. Case discussed with Dr. Rubalcava. The patient still has congestion, wheezing, and shortness of breath. Slightly improved. PHYSICAL EXAMINATION: VITAL SIGNS: Blood pressure 165/67, pulse 68, respiratory rate 20, afebrile, room air oxygen saturation 95%, on two liters 97%. NECK: Supple. LUNGS: Rhonchi and few wheezes. CARDIAC: Irregularly irregular rhythm. Normal S1, paradoxically split S2. A 1/6 apical murmur. ABDOMEN: Soft. No edema. LABORATORY DATA: White count 8.7, hemoglobin 10.5. Potassium 4.3, BUN 20, creatinine 1.2. Pronatriuretic peptide is 9700 which continues to be elevated. IMPRESSION: 1. Acute on chronic systolic and diastolic congestive heart failure with rising natriuretic peptide essay. 2. Hypertensive heart disease with slightly elevated blood pressure. 3. Acute bronchospasm. 4. Chronic obstructive pulmonary disease exacerbation. 5. Paroxysmal atrial fibrillation. 6. Permanent pacemaker. 7. Anemia of chronic disease and chronic kidney disease. PLAN: 1. Continue bronchodilators. 2. Steroids with taper. 3. Antimicrobials. 4. Titrate antihypertensive to optimize blood pressure control. 5. Continue diuresis. Chay Godinez M.D. DR: Ellie JOB#: [id number] CC:
[2017-08-11] MEDS ORDERED: Iron Sucrose 100 MG in NS 55 ML IV SCH (21:00)
[2017-08-11] MEDS ORDERED: Atorvastatin 20mg tab ORAL SCH (21:00)
--- NOTE | 2017-08-11 21:45 | Progress Note ---
DATE: 08/10/2017 CARDIOLOGY PROGRESS NOTE Late entry for 08/10/2017. SUBJECTIVE: The patient is seen and assessed. Possible discharge today noted. Shortness of breath is improving, but has not resolved completely. Monitored rhythm remains with paroxysmal atrial fibrillation and demand pacing. OBJECTIVE: VITAL SIGNS: Blood pressure 134/72, pulse 68, respiratory rate 21, and afebrile. LUNGS: Coarse breath sounds. No wheezing. HEART: Irregularly irregular rhythm. Normal S1 and paradoxically split S2. A 1/6 apical murmur. ABDOMEN: Soft. EXTREMITIES: No edema. LABORATORY DATA: BUN 19, creatinine 1, and potassium 3.8. Albumin is 2.6. IMPRESSION: 1. Acute on chronic systolic and diastolic congestive heart failure, slow to resolve. 2. Chronic obstructive pulmonary disease with acute exacerbation. 3. Paroxysmal bronchospasm. 4. Permanent pacemaker. 5. Paroxysmal atrial fibrillation. 6. Hypertensive heart disease. PLAN: 1. on current antihypertensives. 2. Continue diuresis. 3. Taper steroids. 4. Inhaled bronchodilators. 5. Outpatient followup. Chay Godinez M.D. DR: PHILLIP JOB#: [id number] CC:
== END 2017-08-11 15:03 | disposition home or self-care (01) | DRG 190 ==
LOC: EMR 16:40 → 2E 16:58 → EDBEDREQ 18:16 → 2E 18:48 → 4E 08-10 21:25
DX: J44.1 Chronic obstructive pulmonary disease with (acute) exacerbation (principal); I50.43 Acute on chronic combined systolic (congestive) and diastolic (congestive) heart failure; I48.0 Paroxysmal atrial fibrillation; R47.01 Aphasia; N39.0 Urinary tract infection, site not specified; D63.8 Anemia in other chronic diseases classified elsewhere; I69.322 Dysarthria following cerebral infarction; F01.50 Vascular dementia, unspecified severity, without behavioral disturbance, psychotic disturbance, mood disturbance, and anxiety; D50.9 Iron deficiency anemia, unspecified; I25.10 Atherosclerotic heart disease of native coronary artery without angina pectoris; J20.9 Acute bronchitis, unspecified; J44.0 Chronic obstructive pulmonary disease with (acute) lower respiratory infection; I11.0 Hypertensive heart disease with heart failure; J98.01 Acute bronchospasm; Z95.0 Presence of cardiac pacemaker; Z87.891 Personal history of nicotine dependence; Z88.8 Allergy status to other drugs, medicaments and biological substances; L72.3 Sebaceous cyst; N40.0 Benign prostatic hyperplasia without lower urinary tract symptoms; M19.90 Unspecified osteoarthritis, unspecified site; Z86.73 Personal history of transient ischemic attack (TIA), and cerebral infarction without residual deficits; K29.70 Gastritis, unspecified, without bleeding; K57.90 Diverticulosis of intestine, part unspecified, without perforation or abscess without bleeding; Z91.013 Allergy to seafood; Z85.46 Personal history of malignant neoplasm of prostate
CPT/HCPCS: 36415; 36600; 71010; 74000; 76700; 80048; 80053; 80202; 81003; 82150; 82728; 82803; 83540; 83550; 83735; 83880; 84484; 85007; 85025; 85610; 85730; 86710; 87070; 87081; 87205; 93005; 94640; 94664; 94760; 99285; J7620; J8499

== ENCOUNTER 2017-10-07 15:46 | Inpatient (IN) | payer MEDICARE, OTHER ==
[~2017-10-07] VITALS: Ht 165.1 cm; Wt 59.4 kg
[~2017-10-07 15:46] MED LIST changes: +ALDACTONE25 MG ORAL; +COL-RITE250 MG PO; +DOXYCYCLINE MO100 MG ORAL; +FERROUS GLUCON324 M1 PO; +LOSARTAN POTASS50 MG ORAL; +MAG-OXIDE400 M1 PO; +PREDNISONE10 M2 PO; +UNOBMED
[2017-10-07 16:00] VITALS: BP 158/80
[2017-10-07] MEDS ORDERED: Albuterol ud Inhalation HHN ONE (16:30)
[2017-10-07] MEDS ORDERED: Ipratropium 0.02% Inh Soln 2.5ml UD HHN ONE (16:30)
--- NOTE | 2017-10-07 16:33 | Emergency Room Report ---
History of Present Illness General Chief Complaint: Upper Respiratory Illness Source: Patient Present Illness HPI Patient presents with complaints of shortness of breath and cough There is some difficulty obtaining full history The patient short of breath and provides 2-3 word sentences also appears to be mildly confused Patient appears to have been recently in the hospital There was no reports of vomiting or diarrhea When asked regarding the shortness of breath patient reports over the past one year Unknown regarding fever no obvious rash reported Patient has fairly extensive history Allergies: Coded Allergies: VINCENT INHIBITORS (Verified Allergy, Mild, 08/06/17) SHELLFISH (Verified Allergy, Unknown, 07/01/11) Patient History Past Medical History: see triage record Pertinent Family History: none Reviewed Nursing Documentation: PMH: Agreed, PSxH: Agreed Nursing Documentation-PMH Past Medical History: No History, Except For Hx Cardiac Problems: Yes Hx Hypertension: Yes Hx Pacemaker: Yes - VPACED Hx Asthma: Yes Hx COPD: Yes Hx Diabetes: No Hx Cancer: No Hx Gastrointestinal Problems: Yes Hx Neurological Problems: Yes Hx Cerebrovascular Accident: Yes Hx Speech Problem: Yes - Aphesia Hx Dizziness: Yes Hx Syncope: Yes Hx Headaches: Yes Hx Aphasia: Yes Hx Dysphasia: Yes Hx Weakness: Yes Hx Fatigue: Yes Review of Systems All Other Systems: negative except mentioned in HPI Physical Exam Vital Signs Date Time Temp Pulse Resp B/P (MAP) Pulse Ox O2 Delivery O2 Flow Rate FiO2 10/07/17 15:53 97.9 64 18 160/84 92 Room Air Sp02 EP Interpretation: reviewed, abnormal - 92% on room air which is low General Appearance: mild distress - appears short of breath Head: normocephalic, atraumatic Eyes: bilateral eye PERRL, bilateral eye EOMI ENT: normal pharynx, no angioedema, uvula midline Neck: full range of motion, supple Respiratory: crackles - Diffusely, audible rales, mildly tachypneic Cardiovascular #1: edema - Mild dependent edema bilateral legs Gastrointestinal: non tender, soft Genitourinary: no CVA tenderness Musculoskeletal: normal inspection Neurologic: alert, responsive - Mild confusion Skin: other - Mild swelling in both feet, appears to have thick-skin on lower legs Lymphatic: no adenopathy Medical Decision Making Diagnostic Impression: Primary Impression: ACS (acute coronary syndrome) Additional Impression: Pleural effusion, right ER Course Patient is a fairly complex patient with multiple differential to consideration including but not limited to cardiac cardiopulmonary and vascular emergencies Patient has continued right-sided effusion his previous Deep suctioning has improved symptoms along with breathing treatment patient was also provided with diuretic At this time given the effusion and the lack of visualization of the lower lobe antibiotic was also provided Patient admitted for further care Labs Test 10/07/17 16:25 10/07/17 19:02 White Blood Count 5.1 K/UL (4.8-10.8) Red Blood Count 3.85 M/UL (4.70-6.10) Hemoglobin 11.1 G/DL (14.2-18.0) Hematocrit 36.8 % (42.0-52.0) Mean Corpuscular Volume 95 FL (80-99) Mean Corpuscular Hemoglobin 28.9 PG (27.0-31.0) Mean Corpuscular Hemoglobin Concent 30.3 G/DL (32.0-36.0) Red Cell Distribution Width 15.7 % (11.6-14.8) Platelet Count 114 K/UL (150-450) Mean Platelet Volume 8.4 FL (6.5-10.1) Neutrophils (%) (Auto) 67.7 % (45.0-75.0) Lymphocytes (%) (Auto) 17.5 % (20.0-45.0) Monocytes (%) (Auto) 12.1 % (1.0-10.0) Eosinophils (%) (Auto) 1.6 % (0.0-3.0) Basophils (%) (Auto) 1.1 % (0.0-2.0) Sodium Level 144 MMOL/L (136-145) Potassium Level 4.1 MMOL/L (3.5-5.1) Chloride Level 108 MMOL/L (98-107) Carbon Dioxide Level 29 MMOL/L (21-32) Anion Gap 7 mmol/L (5-15) Blood Urea Nitrogen 13 mg/dL (7-18) Creatinine 1.0 MG/DL (0.55-1.30) Estimat Glomerular Filtration Rate mL/min (>60) Glucose Level 92 MG/DL (74-106) Lactic Acid Level 1.80 mmol/L (0.66-2.22) Calcium Level 9.3 MG/DL (8.5-10.1) Total Bilirubin 0.8 MG/DL (0.2-1.0) Aspartate Amino Transf (AST/SGOT) 31 U/L (15-37) Alanine Aminotransferase (ALT/SGPT) 13 U/L (12-78) Alkaline Phosphatase 148 U/L (46-116) Total Creatine Kinase 121 U/L (26-308) Creatine Kinase MB 2.8 NG/ML (0.0-3.6) Creatine Kinase MB Relative Index 2.3 Troponin I 0.028 ng/mL (0.000-0.056) Pro-B-Type Natriuretic Peptide 5346 pg/mL (0-125) Total Protein 8.6 G/DL (6.4-8.2) Albumin 3.1 G/DL (3.4-5.0) Globulin 5.5 g/dL Albumin/Globulin Ratio 0.6 (1.0-2.7) Urine Color Yellow Urine Appearance Clear Urine pH 6 (4.5-8.0) Urine Specific [place] 1.010 (1.005-1.035) Urine Protein 2+ (NEGATIVE) Urine Glucose (UA) Negative (NEGATIVE) Urine Ketones Negative (NEGATIVE) Urine Occult Blood 2+ (NEGATIVE) Urine Nitrite Negative (NEGATIVE) Urine Bilirubin Negative (NEGATIVE) Urine Urobilinogen Normal MG/DL (0.0-1.0) Urine Leukocyte Esterase Negative (NEGATIVE) Urine RBC 0-2 /HPF (0 - 0) Urine WBC 0-2 /HPF (0 - 0) Urine Squamous Epithelial Cells Few /LPF (NONE/OCC) Urine Bacteria Occasional /HPF (NONE) Rhythm Strip Diag. Results EP Interpretation: yes Rate: 77 Rhythm: NSR, no PVC's, no ectopy Chest X-Ray Diagnostic Results Chest X-Ray Diagnostic Results : Chest X-Ray Ordered: Yes # of Views/Limited/Complete: 1 View Indication: Shortness of Breath EP Interpretation: Yes Interpretation: no pneumothorax, other - Cardiomegaly, right-sided effusion fairly similar to previous, no acute bony abnormality Impression: Other - right-sided effusion Electronically Signed by: Luis Enrique Smith DO Last Vital Signs Date Time Temp Pulse Resp B/P (MAP) Pulse Ox O2 Delivery O2 Flow Rate FiO2 10/07/17 15:53 97.9 64 18 160/84 92 Room Air Status: improved Disposition: ADMITTED INPATIENT Condition: Serious LUIS ENRIQUE SMITH D.O. Oct 07, 2017 16:32
[2017-10-07 16:37] LABS: BASOPHILS % (AUTO) 1.1 % (0.0-2.0); EOSINOPHILS % (AUTO) 1.6 % (0.0-3.0); HEMATOCRIT 36.8 % (42.0-52.0); HEMOGLOBIN 11.1 G/DL (14.2-18.0); LYMPHOCYTES % (AUTO) 17.5 % (20.0-45.0); MEAN CORPUSCULAR VOLUME 95 FL (80-99); MONOCYTES % (AUTO) 12.1 % (1.0-10.0); NEUTROPHILS % (AUTO) 67.7 % (45.0-75.0); PLATELET COUNT 114 K/UL (150-450); RED BLOOD COUNT 3.85 M/UL (4.70-6.10); RED CELL DISTRIBUTION WIDTH 15.7 % (11.6-14.8); WHITE BLOOD COUNT 5.1 K/UL (4.8-10.8)
[2017-10-07 16:50] LABS: ANION GAP 7 mmol/L (5-15); BLOOD UREA NITROGEN 13 mg/dL (7-18); CALCIUM 9.3 MG/DL (8.5-10.1); CARBON DIOXIDE 29 MMOL/L (21-32); CHLORIDE 108 MMOL/L (98-107); POTASSIUM 4.1 MMOL/L (3.5-5.1); SODIUM 144 MMOL/L (136-145)
--- NOTE | 2017-10-07 16:56 | Diagnostic Imaging Report ---
Indication: Chest pain Technique: XRAY Chest 1v Comparison: 08/09/2017 Findings: Stable cardiomegaly. Right-sided pacemaker unchanged in position. There is interstitial opacification/edema. There is a right-sided pleural effusion right basilar atelectasis/consolidation. There is no pneumothorax. Impression: Cardiomegaly with interstitial opacification/edema and layering right-sided pleural effusion with right basilar atelectasis/consolidation. Findings may be related to CHF. Superimposed pneumonia not excludable. Clinical correlation and follow-up exam recommended.
[2017-10-07 17:06] LABS: ALANINE AMINOTRANSFERASE 13 U/L (12-78); ALBUMIN 3.1 G/DL (3.4-5.0); ALBUMIN/GLOBULIN RATIO 0.6 (1.0-2.7); ALKALINE PHOSPHATASE 148 U/L (46-116); ASPARTATE AMINO TRANSFERASE 31 U/L (15-37); BILIRUBIN,TOTAL 0.8 MG/DL (0.2-1.0); CKMB 2.8 NG/ML (0.0-3.6); CREATINE KINASE 121 U/L (26-308)
[2017-10-07] MEDS ORDERED: DILTIAZEM 24HR240 M1 PO (18:04)
[2017-10-07] MEDS ORDERED: METOPROLOL SUCC50 MG ORAL (18:04)
[2017-10-07] MEDS ORDERED: ASPIR 8181 MG ORAL (18:04)
[2017-10-07] MEDS ORDERED: CARTIA XT180 MG ORAL (18:04)
[2017-10-07] MEDS ORDERED: PANTOPRAZOLE SO40 MG ORAL (18:04)
[2017-10-07] MEDS ORDERED: FERROUS GLUCON324 M2 PO (18:10)
[2017-10-07 19:16] LABS: APPEARANCE,URINE CLEAR; BILIRUBIN, URINE NEGATIVE (NEGATIVE); COLOR,URINE YELLOW; GLUCOSE, URINE (UA) NEGATIVE (NEGATIVE); KETONES,URINE NEGATIVE (NEGATIVE); LEUKOCYTE ESTERASE ,URINE NEGATIVE (NEGATIVE); NITRITE,URINE NEGATIVE (NEGATIVE); PH,URINE 6 (4.5-8.0); PROTEIN,URINE 2+ (NEGATIVE); UROBILINOGEN,URINE NORMAL MG/DL (0.0-1.0)
[2017-10-07 19:37] VITALS: BP 156/87
[2017-10-07 20:57] VITALS: BP 142/62
[2017-10-07 21:50] VITALS: BP 155/74
[2017-10-07] MEDS: Enoxaparin 60mg Inj SUBQ SCH (22:45)
[2017-10-07] MEDS: Atorvastatin 20mg tab ORAL SCH (22:46)
[2017-10-07] MEDS: Aspirin Baby 81mg ORAL SCH (22:46)
[2017-10-07] MEDS: Metoprolol Succinate XL 50mg tab ORAL SCH (22:47)
[2017-10-07] MEDS: Losartan 50mg tab ORAL SCH (22:48)
[2017-10-08] VITALS: BP 134/66
[2017-10-08 04:00] VITALS: BP 133/68
--- NOTE | 2017-10-08 06:30 | Consultation ---
DATE OF CONSULTATION: 10/07/2017 CARDIOLOGY CONSULTATION CONSULTING PHYSICIAN: Chay Godinez M.D. REQUESTING PHYSICIAN: Martinez Rubalcava M.D. REASON FOR CONSULTATION: Shortness of breath in the setting of cardiomyopathy. HISTORY OF PRESENT ILLNESS: This is a 72-year-old male with a known history of ischemic and hypertensive cardiomyopathy with permanent pacemaker. He presented to the emergency room with increasing shortness of breath, some associated cough, some leg swelling, definite orthopnea and speech apnea. He was seen in the emergency room and admitted for further management. I have been asked to address cardiovascular care at this time. The patient has not complained of chest pain. He was last hospitalized here in July 2017. At that time, his permanent pacemaker was interrogated, battery life was estimated at about six months, appropriate sensing and pacing significantly noted. PAST MEDICAL HISTORY: Includes hypertension, coronary artery disease, history of congestive heart failure due to systolic and diastolic dysfunction, COPD, paroxysmal atrial fibrillation, [employer] permanent pacemaker, arteriosclerotic cardiovascular disease, diverticulosis, hemorrhoids, osteoarthritis, cerebrovascular disease, and dysarthria. ALLERGIES: Shellfish. MEDICATIONS: Prior to admission, reviewed and reconciled. FAMILY HISTORY: Noncontributory. SOCIAL HISTORY: Former smoker 50 plus pack year. Occasional beer, but no excessive alcohol use. No substance abuse. Lives with family members. REVIEW OF SYSTEMS: In 2015, the patient had a myocardial perfusion scan done here that revealed minimal reversible ischemia. An echocardiogram in the last six months has revealed mildly depressed ejection fraction of 40% to 45% with mild degenerative valve disease. As stated, his pacemaker was recently interrogated. He does have COPD. There is no history of prostate cancer. He has chronic kidney disease. He has not noted any change in bowel habits. There is no history of blood clots. He has not been on anticoagulation due to increased bleeding risks. PHYSICAL EXAMINATION: VITAL SIGNS: Blood pressure 155/74, pulse 64, respiratory rate 22, afebrile, and oxygen saturation 96% on two liters nasal cannula. HEENT: Mild temporal wasting. Pale conjunctivae. Oropharynx clear. No thrush. NECK: Supple with some accessory muscle use. LUNGS: With diffuse rales. No wheezing. No subcostal retractions. CARDIAC: Regular rhythm and rate. Normal S1, S2, 1/6 systolic apical murmur. Pacemaker pocket site with no signs of secondary skin infection. ABDOMEN: Soft and nontender. EXTREMITIES: A 1 to 2+ dependent edema bilaterally and stasis derm changes. NEUROLOGIC: Grossly nonfocal. He does have aphasia. DIAGNOSTIC AND LABORATORY DATA: Chest x-ray revealed right pleural effusion and possible infiltrate. White count 5.1, hemoglobin 11.1. Urinalysis with no active sediment. Albumin 3.1. Lactic acid 1.8. Glucose 92, sodium 144, potassium 4.1, bicarbonate 29, BUN 13, and creatinine 1.0. EKG reveals sinus rhythm with no ectopy and nonspecific ST-T wave changes. IMPRESSION: 1. Acute on chronic systolic and diastolic congestive heart failure. 2. Permanent pacemaker, paroxysmal atrial fibrillation. 3. Pleural effusion. 4. Chronic obstructive pulmonary disease exacerbation. 5. Hypertensive and ischemic cardiomyopathy. 6. Mild protein-calorie malnutrition. PLAN: 1. Cardiac monitoring. 2. Diuresis with intravenous loop diuretic. 3. Maximize anti-failure regimen. 4. Inhaled bronchodilators. 5. Consider thoracentesis. 6. Empiric antibiotics. 7. Pacemaker interrogation may be considered in view of prior result. 8. DVT prophylaxis. 9. No plans for anticoagulation in view of increased bleeding risk in this clinical setting. Chay Godinez M.D. DR: CARMEN JOB#: [id number] CC:
[2017-10-08 08:00] VITALS: BP 136/55
[2017-10-08] MEDS: Metoprolol Succinate XL 50mg tab ORAL SCH (08:26)
[2017-10-08] MEDS: Losartan 50mg tab ORAL SCH ×2 (08:27→21:24)
[2017-10-08] MEDS: Aspirin Baby 81mg ORAL SCH (08:27)
[2017-10-08] MEDS: Spironolactone 25mg tab ORAL SCH (08:27)
[2017-10-08] MEDS: Enoxaparin 60mg Inj SUBQ SCH (08:28)
[2017-10-08 08:34] LABS: BASOPHILS % (AUTO) 1.6 % (0.0-2.0); EOSINOPHILS % (AUTO) 1.3 % (0.0-3.0); HEMATOCRIT 35.2 % (42.0-52.0); HEMOGLOBIN 10.8 G/DL (14.2-18.0); LYMPHOCYTES % (AUTO) 22.1 % (20.0-45.0); MEAN CORPUSCULAR VOLUME 95 FL (80-99); MONOCYTES % (AUTO) 11.7 % (1.0-10.0); NEUTROPHILS % (AUTO) 63.4 % (45.0-75.0); PLATELET COUNT 109 K/UL (150-450); RED CELL DISTRIBUTION WIDTH 15.5 % (11.6-14.8); WHITE BLOOD COUNT 4.5 K/UL (4.8-10.8)
[2017-10-08 08:47] LABS: ALANINE AMINOTRANSFERASE < 6 U/L (12-78); ALBUMIN 2.7 G/DL (3.4-5.0); ALBUMIN/GLOBULIN RATIO 0.5 (1.0-2.7); ALKALINE PHOSPHATASE 133 U/L (46-116); ANION GAP 7 mmol/L (5-15); ASPARTATE AMINO TRANSFERASE 25 U/L (15-37); BILIRUBIN,TOTAL 0.7 MG/DL (0.2-1.0); BLOOD UREA NITROGEN 14 mg/dL (7-18); CALCIUM 8.8 MG/DL (8.5-10.1); CARBON DIOXIDE 30 MMOL/L (21-32); CHLORIDE 107 MMOL/L (98-107); CREATININE 1.1 MG/DL (0.55-1.30); POTASSIUM 3.6 MMOL/L (3.5-5.1); SODIUM 144 MMOL/L (136-145)
--- NOTE | 2017-10-08 10:31 | Consultation ---
Consult Note Assessment/Plan PULMONARY CONSULTATION CONSULTING PHYSICIAN: Erin Hammer M.D. REFERRING PHYSICIAN: Martinez Rubalcava M.D. CHIEF COMPLAINT: The patient is seen because of shortness of breath and wheezing. HISTORY OF PRESENT ILLNESS: The patient has a history of COPD and CHF. He was admitted with increasing symptoms of shortness of breath and cough with wheezing. Dr. Rubalcava has asked me to see him for additional recommendations regarding optimizing his treatment. PAST MEDICAL HISTORY: Includes COPD, systolic and diastolic CHF, pacemaker, atrial fibrillation, past stroke with dysarthria, aphasia and prostate cancer. ALLERGIES: VINCENT inhibitors and shellfish. REVIEW OF SYSTEMS: Cannot be obtained. MEDICATIONS: Reviewed. PHYSICAL EXAMINATION: GENERAL: The patient is alert and responsive but he is aphasic and dysarthric. He cannot make his needs known. VITAL SIGNS: Stable. He is chronically ill and malnourished. HEENT: The head is normocephalic. NECK: Has jugular vein distention. A pacemaker is in the right upper chest. LUNGS: Have moderate wheezing at this time. CARDIAC: Rhythm is regular. ABDOMEN: Soft, but mildly distended. Liver and spleen are not felt. EXTREMITIES: Have no clubbing or cyanosis. There is 1+ edema and chronic stasis changes. PLAN: The CXR shows interstitial edema and a R effusion. The WBC is normal. The patient will continue on congestive heart failure regimen recommended by Dr. Godinez. Respiratory treatments will be ordered. I do not believe steroids or antibiotics are needed at present. A flu test was negative. Thank you for asking me to see in consultation. I will follow closely with you. Erin Hammer M.D. ERIN HAMMER Oct 08, 2017 10:31
[2017-10-08 12:00] VITALS: BP 139/69
[2017-10-08] MEDS ORDERED: Metoprolol Succinate XL 50mg tab ORAL SCH (13:30)
[2017-10-08] MEDS: dilTIAZem HCl CD 180mg cap ORAL SCH (14:07)
[2017-10-08] MEDS: Albuterol/Ipratropium 3ml neb HHN SCH ×2 (14:41→19:45)
[2017-10-08 16:00] VITALS: BP 142/80
--- NOTE | 2017-10-08 17:07 | Cardiology Report ---
APPROVED REPORT EXAM: Two-dimensional and M-mode echocardiogram with Doppler and color Doppler. INDICATION Hypertension M-Mode DIMENSIONS IVSd1.1 (0.7-1.1cm)Left Atrium (MM)4.8 (1.6-4.0cm) LVDd4.3 (3.5-5.6cm)Aortic Root3.1 (2.0-3.7cm) PWd1.6 (0.7-1.1cm)Aortic Cusp Exc.2.0 (1.5-2.0cm) LVDs3.8 (2.5-4.0cm) PWs1.5 cm Normal left ventricular chamber size, systolic function and wall motion except flatening of VS suggestive of rv volume overload . Left ventricular ejection fraction estimated to be 55-60%. left ventricular hypertrophy. Mild to moderate anterior and posterior pericardial effusion. Mild left atrial and right ventricular enlargement by 2D. Moderate right atrial enlargement by 2D. Focal aortic valve sclerosis with adequate cusp excursion. Thickened mitral valve leaflets with normal excursion. Mild mitral annulus and aortic root calcification. Pulmonic valve not well visualized. Normal tricuspid valve structure. IVC is normal in size and collapsible with respiration. IVC dilated at 2.7 cm non-collapsible with respiration indicate increased RA pressure. Probable pacemaker wire present in the right side chambers. A color flow and spectral Doppler study was performed and revealed: Mild aortic regurgitation. Trace mitral regurgitation. Normal mitral diastolic function. Severe tricuspid regurgitation. Tricuspid systolic velocities suggests peak right ventricular systolic pressure of 58 mmHg Consistent with severe pulmonary hypertension. Pulmonic regurgitation present.
--- NOTE | 2017-10-08 18:30 | History and Physical Report ---
DATE OF ADMISSION: 10/07/2017 CHIEF COMPLAINT/REASON FOR HOSPITALIZATION: The patient admitted with shortness of breath and CHF. HISTORY OF PRESENT ILLNESS: The patient has chronic CHF with systolic and diastolic dysfunction, COPD, history of CVA, permanent pacemaker, atrial fibrillation, prior GI bleeding. He presents with increasing shortness of breath and cough. The patient has been taking his medicines and nebulizer at home, but came with shortness of breath again. He has had this several times in the past requiring hospitalization. PAST SURGICAL HISTORY: Permanent pacemaker. MEDICATIONS AT HOME: Lasix 80 mg b.i.d., prazosin 5 mg at bedtime, metoprolol extended release 50 mg daily, diltiazem 180 mg daily, spironolactone 25 mg daily, aspirin 81 mg daily, DSS 250 mg b.i.d., simvastatin 40 mg daily, Protonix 40 mg daily, ferrous sulfate 325 mg daily, Proscar 5 mg daily, hand held nebulizer, Bactroban q.i.d., magnesium oxide 400 mg b.i.d., Cozaar 50 mg daily, and Tylenol as needed. ALLERGIES: VINCENT inhibitors causing angioedema. HABITS: He is a former smoker, quit many years ago. Alcohol occasional. Drugs, none. REVIEW OF SYSTEMS: HEAD, EYES, EARS, NOSE, AND THROAT: He is edentulous. Hearing is good. Vision is good. ENDOCRINE: No diabetes or thyroid disease. PULMONARY: History of COPD and recurrent exacerbations. No history of TB. CARDIAC: See history of present illness. GASTROINTESTINAL: He has had Hemoccult-positive stools and multiple endoscopies, generally negative. Anticoagulants were stopped due to GI bleeding. GENITOURINARY: He has BPH, nocturia about 3 times. No history of urinary retention on a chronic basis, although he has had increased residuals in the past. NEUROLOGIC: History of CVA with severe dysarthria, but he is moving all extremities and ambulates. MUSCULOSKELETAL: Intermittent low back pain. PHYSICAL EXAMINATION: GENERAL: The patient is alert man, chronically ill-appearing, in mild respiratory distress. VITAL SIGNS: Temperature 97.8 degrees, pulse 60, respirations 20, and blood pressure 139/69, and pulse oximetry 99% on 2 liters. HEAD, EYES, EARS, NOSE, AND THROAT: Sclerae are nonicteric. Ocular motions intact in all directions. Oral mucosa moist. He is edentulous. NECK: No adenopathy. LUNGS: Bilateral rhonchi and crackles at the bases. He is in [id number] distress. HEART: Regular rhythm with a 2-3/6 systolic murmur. ABDOMEN: Soft. I am unable to feel liver or spleen. EXTREMITIES: No edema, cyanosis, or clubbing. There is a dry scaly skin on the legs. NEUROLOGIC: He is alert and responsive. Ocular motions intact in all directions. Smile symmetric. Tongue is midline. He moves all extremities. He is severely dysarthric. LABORATORY AND DIAGNOSTIC DATA: Review of pertinent labs showed white count of 4.5 and hemoglobin is 10.8. Sodium 144, potassium 3.6, BUN 14, and creatinine 1.1. Troponin 0.028 and 0.034. Albumin is 2.7. IMPRESSION: 1. Congestive heart failure, acute on chronic, with diastolic dysfunction. 2. Acute bronchitis. 3. Chronic obstructive pulmonary disease with acute exacerbation. 4. History of permanent pacemaker. 5. History of atrial fibrillation. 6. History of systolic congestive heart failure. 7. History of cerebrovascular accident. 8. History of prior gastrointestinal bleeding. PLAN: The patient will be diuresed. We will treat him with steroids and nebulizer treatments for his COPD. We will watch closely in view of his comorbidities. Martinez Rubalcava M.D. DR: GRZEGORZ JOB#: [id number] CC:
[2017-10-08 20:51] VITALS: BP 121/82
[2017-10-08] MEDS: Tamsulosin 0.4mg cap ORAL SCH (21:25)
[2017-10-08] MEDS: Atorvastatin 20mg tab ORAL SCH (21:25)
[2017-10-09] VITALS: BP 111/58
[2017-10-09] MEDS: Albuterol/Ipratropium 3ml neb HHN SCH ×4 (01:05→19:12)
--- NOTE | 2017-10-09 02:30 | Progress Note ---
DATE: 10/08/2017 CARDIOLOGY PROGRESS NOTE SUBJECTIVE: The patient remains short of breath and congested. He has been receiving IV diuretics since admission last evening. Monitor atrial fibrillation with ventricular pacing. OBJECTIVE: LUNGS: Coarse breath sounds. Bilateral rales. HEART: Irregularly irregular rhythm. Normal S1 and S2. A 1/6 systolic murmur at apex. ABDOMEN: Soft and nontender. EXTREMITIES: A 1+ dependent edema. LABORATORY DATA: White count 4.5 and hemoglobin 10.8. Potassium 3.6. Albumin 3.7. BUN 14 and creatinine 1.1. IMPRESSION: 1. Acute on chronic systolic and diastolic congestive heart failure. 2. Paroxysmal atrial fibrillation. 3. Permanent pacemaker. 4. Hypertensive and ischemic cardiomyopathy. 5. Chronic obstructive pulmonary disease. 6. Paroxysmal bronchospasm. PLAN: 1. Continue diuresis. 2. Maximize anti-failure regimen. 3. Respiratory hygiene. 4. Bronchodilators. Chay Godinez M.D. DR: LEE JOB#: [id number] CC:
[2017-10-09 04:00] VITALS: BP 107/59
[2017-10-09 07:02] LABS: HEMATOCRIT 31.4 % (42.0-52.0); HEMOGLOBIN 9.8 G/DL (14.2-18.0); MEAN CORPUSCULAR VOLUME 94 FL (80-99); PLATELET COUNT 97 K/UL (150-450); RED BLOOD COUNT 3.33 M/UL (4.70-6.10); RED CELL DISTRIBUTION WIDTH 15.2 % (11.6-14.8); WHITE BLOOD COUNT 4.1 K/UL (4.8-10.8)
[2017-10-09 07:27] LABS: ANION GAP 7 mmol/L (5-15); BLOOD UREA NITROGEN 15 mg/dL (7-18); CALCIUM 8.6 MG/DL (8.5-10.1); CARBON DIOXIDE 32 MMOL/L (21-32); CHLORIDE 104 MMOL/L (98-107); CREATININE 1.2 MG/DL (0.55-1.30); POTASSIUM 4.1 MMOL/L (3.5-5.1); SODIUM 143 MMOL/L (136-145)
--- NOTE | 2017-10-09 07:49 | General Progress Note ---
Assessment/Plan Problem List: (1) Thrombocytopenia ICD Codes: D69.6 - Thrombocytopenia, unspecified SNOMED: 352905025 (2) COPD exacerbation ICD Codes: J44.1 - Chronic obstructive pulmonary disease with (acute) exacerbation SNOMED: 228264983 (3) CHF (congestive heart failure), NYHA class III ICD Codes: I50.9 - Heart failure, unspecified SNOMED: 542461557, 841844278 (4) Pleural effusion, right ICD Codes: J94.8 - Other specified pleural conditions SNOMED: 05423425 (5) Respiratory distress ICD Codes: R06.00 - Dyspnea, unspecified SNOMED: 780002449 (6) Atrial fibrillation ICD Codes: I48.91 - Atrial fibrillation SNOMED: 18424732 (7) 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 ICD Codes: I69.922 - 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 SNOMED: 964539967 Assessment/Plan less dyspnea, continue diuresis, hhn, cardiac meds Subjective Constitutional: Reports: weakness HEENT: Reports: no symptoms Cardiovascular: Reports: no symptoms Respiratory: Reports: cough, shortness of breath Gastrointestinal/Abdominal: Reports: no symptoms Genitourinary: Reports: no symptoms Neurologic/Psychiatric: Reports: pre-existing deficit Endocrine: Reports: no symptoms Hematologic/Lymphatic: Reports: anemia Allergies: Coded Allergies: VINCENT INHIBITORS (Verified Allergy, Mild, 08/06/17) SHELLFISH (Verified Allergy, Unknown, 07/01/11) Objective Last 24 Hour Vital Signs Date Time Temp Pulse Resp B/P (MAP) Pulse Ox O2 Delivery O2 Flow Rate FiO2 10/09/17 04:00 97.5 60 20 107/59 98 Nasal Cannula 2.0 10/09/17 04:00 60 10/09/17 01:05 68 20 99 Nasal Cannula 2.0 28 10/09/17 01:05 62 20 95 Nasal Cannula 2.0 28 10/09/17 00:00 60 10/09/17 00:00 97.6 60 19 111/58 98 Nasal Cannula 2.0 10/08/17 21:24 126/81 10/08/17 20:51 97.7 60 20 121/82 100 Nasal Cannula 10/08/17 20:00 61 10/08/17 19:52 Nasal Cannula 2.0 28 10/08/17 19:52 97 Nasal Cannula 2.0 28 10/08/17 19:49 62 20 99 Nasal Cannula 2.0 28 10/08/17 19:48 60 20 97 Nasal Cannula 2.0 28 10/08/17 19:45 60 20 Nasal Cannula 2.0 28 10/08/17 16:00 97.1 60 20 142/80 99 Nasal Cannula 2.0 10/08/17 16:00 60 10/08/17 14:07 60 139/69 10/08/17 12:00 60 10/08/17 12:00 97.8 60 20 139/69 99 Nasal Cannula 2.0 10/08/17 08:27 136/55 10/08/17 08:26 63 136/55 10/08/17 08:00 64 10/08/17 08:00 97.0 63 21 136/55 97 Nasal Cannula 2.0 Intake and Output 10/08/17 10/09/17 19:00 07:00 Intake Total 100 ml Output Total 1100 ml 800 ml Balance -1000 ml -800 ml Intake Oral 100 ml Output Urine Total 1100 ml 800 ml # Bowel Movements 1 1 Laboratory Tests 10/08/17 07:45: White Blood Count 4.5L, Red Blood Count 3.70L, Hemoglobin 10.8L, Hematocrit 35.2L, Mean Corpuscular Volume 95, Mean Corpuscular Hemoglobin 29.1, Mean Corpuscular Hemoglobin Concent 30.6L, Red Cell Distribution Width 15.5H, Platelet Count 109L, Mean Platelet Volume 7.8, Neutrophils (%) (Auto) 63.4, Lymphocytes (%) (Auto) 22.1, Monocytes (%) (Auto) 11.7H, Eosinophils (%) (Auto) 1.3, Basophils (%) (Auto) 1.6, Sodium Level 144, Potassium Level 3.6, Chloride Level 107, Carbon Dioxide Level 30, Anion Gap 7, Blood Urea Nitrogen 14, Creatinine 1.1, Estimat Glomerular Filtration Rate , Glucose Level 77, Calcium Level 8.8, Total Bilirubin 0.7, Aspartate Amino Transf (AST/SGOT) 25, Alanine Aminotransferase (ALT/SGPT) < 6L, Alkaline Phosphatase 133H, Troponin I 0.034, Total Protein 7.8, Albumin 2.7L, Globulin 5.1, Albumin/Globulin Ratio 0.5L 10/09/17 06:25: White Blood Count 4.1L, Red Blood Count 3.33L, Hemoglobin 9.8L, Hematocrit 31.4L , Mean Corpuscular Volume 94, Mean Corpuscular Hemoglobin 29.6, Mean Corpuscular Hemoglobin Concent 31.3L, Red Cell Distribution Width 15.2H, Platelet Count 97L, Mean Platelet Volume 8.0, Neutrophils (%) (Auto) , Lymphocytes (%) (Auto) , Monocytes (%) (Auto) , Eosinophils (%) (Auto) , Basophils (%) (Auto) , Sodium Level 143, Potassium Level 4.1, Chloride Level 104 , Carbon Dioxide Level 32, Anion Gap 7, Blood Urea Nitrogen 15, Creatinine 1.2, Estimat Glomerular Filtration Rate , Glucose Level 105, Calcium Level 8.6, Troponin I [Pending], Neutrophils % (Manual) [Pending], Lymphocytes % (Manual) [ Pending], Platelet Estimate [Pending], Platelet Morphology [Pending] Height (Feet): 5 Height (Inches): 5.00 Weight (Pounds): 135 General Appearance: no apparent distress, alert, thin EENT: normal ENT inspection Neck: normal alignment Cardiovascular: normal rate, regular rhythm, systolic murmur Respiratory/Chest: rhonchi - bilaterally Abdomen: non tender, soft Edema: no edema noted Arm (L), no edema noted Arm (R), no edema noted Leg (L), no edema noted Leg (R), no edema noted Pedal (L), no edema noted Pedal (R), no edema noted Generalized Neurologic: other - dysarthric HODAN GAYTAN Oct 09, 2017 07:49
[2017-10-09 08:00] VITALS: BP 111/50
[2017-10-09] MEDS: Metoprolol Succinate XL 50mg tab ORAL SCH (08:37)
[2017-10-09] MEDS: Aspirin Baby 81mg ORAL SCH (08:38)
[2017-10-09] MEDS: dilTIAZem HCl CD 180mg cap ORAL SCH (08:38)
[2017-10-09] MEDS: Spironolactone 25mg tab ORAL SCH (08:39)
[2017-10-09] MEDS: Enoxaparin 60mg Inj SUBQ SCH (08:40)
[2017-10-09] MEDS: Losartan 50mg tab ORAL SCH ×2 (08:40→20:18)
--- NOTE | 2017-10-09 08:49 | Pulmonology Progress Note ---
Assessment/Plan Assessment/Plan IMPRESSION: 1. Acute on chronic systolic and diastolic congestive heart failure. 2. Paroxysmal atrial fibrillation with pacemaker. 3. R pleural effusion 4. Hypertensive and ischemic cardiomyopathy. 5. Chronic obstructive pulmonary disease. 6. Paroxysmal bronchospasm. PLAN: 1. Continue diuresis. 2. Maximize anti-failure regimen. 3. Respiratory therapy 4. No indication for steroids or abx Subjective ROS Limited/Unobtainable: Yes Allergies: Coded Allergies: VINCENT INHIBITORS (Verified Allergy, Mild, 08/06/17) SHELLFISH (Verified Allergy, Unknown, 07/01/11) Objective Last 24 Hour Vital Signs Date Time Temp Pulse Resp B/P (MAP) Pulse Ox O2 Delivery O2 Flow Rate FiO2 10/09/17 08:40 111/50 10/09/17 08:38 61 111/60 10/09/17 08:37 61 111/50 10/09/17 07:50 Nasal Cannula 10/09/17 07:50 Nasal Cannula 10/09/17 07:50 Nasal Cannula 2.0 28 10/09/17 07:50 95 Nasal Cannula 2.0 28 10/09/17 04:00 97.5 60 20 107/59 98 Nasal Cannula 2.0 10/09/17 04:00 60 10/09/17 01:05 68 20 99 Nasal Cannula 2.0 28 10/09/17 01:05 62 20 95 Nasal Cannula 2.0 28 10/09/17 00:00 60 10/09/17 00:00 97.6 60 19 111/58 98 Nasal Cannula 2.0 10/08/17 21:24 126/81 10/08/17 20:51 97.7 60 20 121/82 100 Nasal Cannula 10/08/17 20:00 61 10/08/17 19:52 Nasal Cannula 2.0 28 10/08/17 19:52 97 Nasal Cannula 2.0 28 10/08/17 19:49 62 20 99 Nasal Cannula 2.0 28 10/08/17 19:48 60 20 97 Nasal Cannula 2.0 28 10/08/17 19:45 60 20 Nasal Cannula 2.0 28 10/08/17 16:00 97.1 60 20 142/80 99 Nasal Cannula 2.0 10/08/17 16:00 60 10/08/17 14:07 60 139/69 10/08/17 12:00 60 10/08/17 12:00 97.8 60 20 139/69 99 Nasal Cannula 2.0 Intake and Output 10/08/17 10/09/17 19:00 07:00 Intake Total 100 ml Output Total 1100 ml 800 ml Balance -1000 ml -800 ml Intake Oral 100 ml Output Urine Total 1100 ml 800 ml # Bowel Movements 1 1 HEENT: atraumatic Respiratory/Chest: decreased breath sounds - right base Cardiovascular: normal rate Microbiology Date/Time Source Procedure Growth Status 10/07/17 16:25 Blood Blood Culture - Preliminary NO GROWTH AFTER 24 HOURS Resulted 10/07/17 16:20 Blood Blood Culture - Preliminary NO GROWTH AFTER 24 HOURS Resulted 10/07/17 16:25 Nasal Nares Influenza Types A,B Antigen (GIOVANNI) - Final Complete Laboratory Tests 10/09/17 06:25: White Blood Count 4.1L, Red Blood Count 3.33L, Hemoglobin 9.8L, Hematocrit 31.4L , Mean Corpuscular Volume 94, Mean Corpuscular Hemoglobin 29.6, Mean Corpuscular Hemoglobin Concent 31.3L, Red Cell Distribution Width 15.2H, Platelet Count 97L, Mean Platelet Volume 8.0, Neutrophils (%) (Auto) , Lymphocytes (%) (Auto) , Monocytes (%) (Auto) , Eosinophils (%) (Auto) , Basophils (%) (Auto) , Neutrophils % (Manual) [Pending], Lymphocytes % (Manual) [Pending], Platelet Estimate [Pending], Platelet Morphology [Pending], Sodium Level 143, Potassium Level 4.1, Chloride Level 104, Carbon Dioxide Level 32, Anion Gap 7, Blood Urea Nitrogen 15, Creatinine 1.2, Estimat Glomerular Filtration Rate , Glucose Level 105, Calcium Level 8.6, Troponin I 0.028 Current Medications Medications (Trade) Dose Ordered Sig/Scot Route PRN Reason Start Time Stop Time Status Last Admin Dose Admin Albuterol/ Ipratropium (Albuterol/ Ipratropium) 3 ml Q6HRT HHN 10/08/17 10:45 10/13/17 10:44 10/09/17 01:05 Aspirin (ASA) 81 mg DAILY ORAL 10/07/17 21:00 11/06/17 20:59 10/09/17 08:38 Atorvastatin Calcium (Lipitor) 20 mg BEDTIME ORAL 10/07/17 21:00 11/06/17 20:59 10/08/17 21:25 Dextrose (Dextrose 50%) STAT PRN IV Hypoglycemia 10/07/17 20:45 11/06/17 20:44 Diltiazem HCl (Cardizem CD) 180 mg DAILY ORAL 10/08/17 13:30 11/07/17 13:29 10/09/17 08:38 Enoxaparin Sodium (Lovenox) 60 mg DAILY SUBQ 10/09/17 09:00 11/06/17 20:59 10/09/17 08:40 Finasteride (Proscar) 5 mg DAILY ORAL 10/08/17 13:30 11/07/17 13:29 10/09/17 08:38 Furosemide (Lasix) 40 mg Q8HR IV 10/08/17 14:00 11/06/17 20:59 10/09/17 06:09 Iron Sucrose 100 mg/Sodium Chloride 60 ml @ 240 mls/hr BEDTIME IV 10/09/17 21:00 10/13/17 21:14 Losartan Potassium (Cozaar) 50 mg EVERY 12 HOURS ORAL 10/07/17 21:00 11/06/17 20:59 10/08/17 21:24 Metoprolol Succinate (Toprol XL) 50 mg DAILY ORAL 10/07/17 21:00 11/06/17 20:59 10/09/17 08:37 Pantoprazole (Protonix) 40 mg DAILY ORAL 10/08/17 13:30 11/07/17 13:29 10/09/17 08:37 Potassium Chloride (K-Dur) 20 meq TWICE A DAY ORAL 10/08/17 13:30 11/07/17 13:29 10/09/17 08:38 Spironolactone (Aldactone) 25 mg DAILY ORAL 10/08/17 09:00 11/07/17 08:59 10/09/17 08:39 Tamsulosin HCl (Flomax) 0.8 mg BEDTIME ORAL 10/08/17 21:00 11/07/17 20:59 10/08/17 21:25 ERIN ARIAS Oct 09, 2017 08:49
[2017-10-09 16:10] VITALS: BP 100/55
[2017-10-09 20:00] VITALS: BP 146/79
[2017-10-09] MEDS: Iron Sucrose 100 MG in NS 55 ML IV SCH (20:17)
[2017-10-09] MEDS: Tamsulosin 0.4mg cap ORAL SCH (20:18)
[2017-10-09] MEDS: Atorvastatin 20mg tab ORAL SCH (20:19)
[2017-10-10] VITALS: BP 147/78
[2017-10-10] MEDS: Albuterol/Ipratropium 3ml neb HHN SCH ×4 (01:06→19:04)
--- NOTE | 2017-10-10 03:30 | Progress Note ---
DATE: 10/09/2017 CARDIOLOGY PROGRESS NOTE SUBJECTIVE: The patient is less short of breath, but not at baseline. He remains on ranch cook with atrial fibrillation and ventricular pacing. OBJECTIVE: VITAL SIGNS: Blood pressure 107/59, pulse 60, respiratory rate 20, no fevers, and oxygen saturation on 2 liters 98%. HEENT: Temporal wasting. Conjunctivae pink. Oropharynx clear. NECK: Supple. Jugular venous pressure elevated. LUNGS: With few rales. CARDIAC: Irregularly irregular. Normal S1, paradoxically split S2. ABDOMEN: Soft. EXTREMITIES: With trace edema. LABORATORY DATA: White count is 4, hemoglobin 9.8. Potassium is 4.1, BUN 15, and creatinine 1.2. IMPRESSION: 1. Acute on chronic systolic and diastolic congestive heart failure. 2. Paroxysmal atrial fibrillation. 3. Permanent pacemaker. 4. Chronic obstructive pulmonary disease. 5. Hypertensive cardiomyopathy. 6. Ischemic heart disease. PLAN: 1. Continue diuresis. 2. Maximize and titrate anti-failure regimen. 3. Permanent pacemaker was recently interrogated. 4. Monitor cardiorenal parameters. 5. Trend natriuretic peptide assay. Chay Godinez M.D. DR: CELIA JOB#: [id number] CC:
[2017-10-10 04:00] VITALS: BP 110/61
[2017-10-10 07:51] VITALS: BP 113/53
[2017-10-10 08:33] LABS: BASOPHILS % (AUTO) 0.7 % (0.0-2.0); EOSINOPHILS % (AUTO) 1.7 % (0.0-3.0); HEMATOCRIT 33.1 % (42.0-52.0); HEMOGLOBIN 10.4 G/DL (14.2-18.0); LYMPHOCYTES % (AUTO) 20.2 % (20.0-45.0); MEAN CORPUSCULAR VOLUME 95 FL (80-99); MONOCYTES % (AUTO) 12.5 % (1.0-10.0); NEUTROPHILS % (AUTO) 64.9 % (45.0-75.0); PLATELET COUNT 109 K/UL (150-450); RED CELL DISTRIBUTION WIDTH 15.1 % (11.6-14.8)
[2017-10-10] MEDS: Aspirin Baby 81mg ORAL SCH (08:34)
[2017-10-10] MEDS: dilTIAZem HCl CD 180mg cap ORAL SCH (08:35)
[2017-10-10] MEDS: Spironolactone 25mg tab ORAL SCH (08:35)
[2017-10-10] MEDS: Metoprolol Succinate XL 50mg tab ORAL SCH (08:35)
[2017-10-10] MEDS: Losartan 50mg tab ORAL SCH ×2 (08:35→20:29)
[2017-10-10] MEDS: Enoxaparin 60mg Inj SUBQ SCH (08:42)
[2017-10-10 09:03] LABS: ANION GAP 6 mmol/L (5-15); BLOOD UREA NITROGEN 16 mg/dL (7-18); CALCIUM 8.5 MG/DL (8.5-10.1); CARBON DIOXIDE 33 MMOL/L (21-32); CHLORIDE 102 MMOL/L (98-107); CREATININE 1.2 MG/DL (0.55-1.30); SODIUM 141 MMOL/L (136-145)
[2017-10-10 12:00] VITALS: BP 113/58
[2017-10-10] MEDS ORDERED: POTASSIUM CHLO20 ME1 ORAL (13:18)
--- NOTE | 2017-10-10 14:19 | General Progress Note ---
Assessment/Plan Problem List: (1) Thrombocytopenia ICD Codes: D69.6 - Thrombocytopenia, unspecified SNOMED: 599133810 (2) COPD exacerbation ICD Codes: J44.1 - Chronic obstructive pulmonary disease with (acute) exacerbation SNOMED: 580685597 (3) CHF (congestive heart failure), NYHA class III ICD Codes: I50.9 - Heart failure, unspecified SNOMED: 021918162, 622199930 (4) Pleural effusion, right ICD Codes: J94.8 - Other specified pleural conditions SNOMED: 22258247 (5) Respiratory distress ICD Codes: R06.00 - Dyspnea, unspecified SNOMED: 984085148 (6) Atrial fibrillation ICD Codes: I48.91 - Atrial fibrillation SNOMED: 34394062 (7) 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 ICD Codes: I69.922 - 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 SNOMED: 998063121 Assessment/Plan less dyspnea, continue diuresis, hhn, cardiac meds, dc planning, family called Subjective Constitutional: Reports: weakness HEENT: Reports: no symptoms Cardiovascular: Reports: no symptoms Respiratory: Reports: cough, shortness of breath Gastrointestinal/Abdominal: Reports: no symptoms Genitourinary: Reports: no symptoms Neurologic/Psychiatric: Reports: pre-existing deficit Endocrine: Reports: no symptoms Allergies: Coded Allergies: VINCENT INHIBITORS (Verified Allergy, Mild, 08/06/17) SHELLFISH (Verified Allergy, Unknown, 07/01/11) Objective Last 24 Hour Vital Signs Date Time Temp Pulse Resp B/P (MAP) Pulse Ox O2 Delivery O2 Flow Rate FiO2 10/10/17 13:16 66 20 99 Room Air 21 10/10/17 13:05 65 16 94 Room Air 21 10/10/17 12:00 62 10/10/17 12:00 97.9 60 20 113/58 94 Nasal Cannula 2.0 10/10/17 08:35 62 113/53 10/10/17 08:35 62 113/53 10/10/17 08:35 113/53 10/10/17 08:00 70 10/10/17 07:51 97.0 62 21 113/53 98 Room Air 10/10/17 07:17 63 18 99 Room Air 21 10/10/17 07:07 95 Room Air 21 10/10/17 07:07 61 16 95 Room Air 21 10/10/17 07:07 Room Air 21 10/10/17 04:00 61 10/10/17 04:00 97.9 60 16 110/61 96 Nasal Cannula 2.0 10/10/17 01:15 61 18 99 Nasal Cannula 2.0 28 10/10/17 01:06 62 18 96 Nasal Cannula 2.0 28 10/10/17 00:00 61 10/10/17 00:00 99.1 91 22 147/78 97 Nasal Cannula 2.0 10/09/17 21:00 61 10/09/17 20:18 100/55 10/09/17 20:00 97.9 98 22 146/79 100 Nasal Cannula 2.0 10/09/17 19:22 60 18 99 Nasal Cannula 2.0 28 10/09/17 19:12 95 Nasal Cannula 2.0 28 10/09/17 19:12 Nasal Cannula 2.0 28 10/09/17 19:12 63 20 95 Nasal Cannula 2.0 28 10/09/17 16:59 60 10/09/17 16:10 97.0 63 18 100/55 100 Room Air Intake and Output 10/09/17 10/10/17 19:00 07:00 Intake Total 712 ml 636 ml Output Total 800 ml 2225 ml Balance -88 ml -1589 ml Intake Oral 712 ml 636 ml Output Urine Total 800 ml 2225 ml # Bowel Movements 1 Laboratory Tests 10/10/17 07:00: White Blood Count 5.0, Red Blood Count 3.50L, Hemoglobin 10.4L, Hematocrit 33.1L , Mean Corpuscular Volume 95, Mean Corpuscular Hemoglobin 29.7, Mean Corpuscular Hemoglobin Concent 31.4L, Red Cell Distribution Width 15.1H, Platelet Count 109L, Mean Platelet Volume 8.0, Neutrophils (%) (Auto) 64.9, Lymphocytes (%) (Auto) 20.2, Monocytes (%) (Auto) 12.5H, Eosinophils (%) (Auto) 1.7, Basophils (%) (Auto) 0.7, Sodium Level 141, Potassium Level 4.0, Chloride Level 102, Carbon Dioxide Level 33H, Anion Gap 6, Blood Urea Nitrogen 16, Creatinine 1.2, Estimat Glomerular Filtration Rate , Glucose Level 95, Calcium Level 8.5, Magnesium Level 1.3L, Pro-B-Type Natriuretic Peptide 2433H Height (Feet): 5 Height (Inches): 5.00 Weight (Pounds): 133 General Appearance: alert, thin EENT: normal ENT inspection Neck: normal alignment Cardiovascular: normal rate, systolic murmur Respiratory/Chest: rhonchi - bilaterally Abdomen: non tender Edema: no edema noted Arm (L), no edema noted Arm (R), no edema noted Leg (L), no edema noted Leg (R), no edema noted Pedal (L), no edema noted Pedal (R), no edema noted Generalized Neurologic: other - dysarthric HODAN GAYTAN Oct 10, 2017 14:19
[2017-10-10 16:00] VITALS: BP 106/56
--- NOTE | 2017-10-10 16:43 | Pulmonology Progress Note ---
Assessment/Plan Assessment/Plan IMPRESSION: 1. Acute on chronic systolic and diastolic congestive heart failure. 2. Paroxysmal atrial fibrillation with pacemaker. 3. R pleural effusion 4. Hypertensive and ischemic cardiomyopathy. 5. Chronic obstructive pulmonary disease. 6. Paroxysmal bronchospasm. PLAN: 1. Continue diuresis per cardiology 2. Maximize anti-failure regimen. 3. Respiratory therapy 4. No indication for steroids or abx 5. DC planning Subjective Constitutional: Reports: no symptoms Allergies: Coded Allergies: VINCENT INHIBITORS (Verified Allergy, Mild, 08/06/17) SHELLFISH (Verified Allergy, Unknown, 07/01/11) Objective Last 24 Hour Vital Signs Date Time Temp Pulse Resp B/P (MAP) Pulse Ox O2 Delivery O2 Flow Rate FiO2 10/10/17 16:00 62 10/10/17 16:00 97.0 68 20 106/56 96 Room Air 10/10/17 13:16 66 20 99 Room Air 21 10/10/17 13:05 65 16 94 Room Air 21 10/10/17 12:00 62 10/10/17 12:00 97.9 60 20 113/58 94 Nasal Cannula 2.0 10/10/17 08:35 62 113/53 10/10/17 08:35 62 113/53 10/10/17 08:35 113/53 10/10/17 08:00 70 10/10/17 07:51 97.0 62 21 113/53 98 Room Air 10/10/17 07:17 63 18 99 Room Air 21 10/10/17 07:07 95 Room Air 21 10/10/17 07:07 61 16 95 Room Air 21 10/10/17 07:07 Room Air 21 10/10/17 04:00 61 10/10/17 04:00 97.9 60 16 110/61 96 Nasal Cannula 2.0 10/10/17 01:15 61 18 99 Nasal Cannula 2.0 28 10/10/17 01:06 62 18 96 Nasal Cannula 2.0 28 10/10/17 00:00 61 10/10/17 00:00 99.1 91 22 147/78 97 Nasal Cannula 2.0 10/09/17 21:00 61 10/09/17 20:18 100/55 10/09/17 20:00 97.9 98 22 146/79 100 Nasal Cannula 2.0 10/09/17 19:22 60 18 99 Nasal Cannula 2.0 28 10/09/17 19:12 95 Nasal Cannula 2.0 28 10/09/17 19:12 Nasal Cannula 2.0 28 10/09/17 19:12 63 20 95 Nasal Cannula 2.0 28 10/09/17 16:59 60 Intake and Output 10/09/17 10/10/17 19:00 07:00 Intake Total 712 ml 636 ml Output Total 800 ml 2225 ml Balance -88 ml -1589 ml Intake Oral 712 ml 636 ml Output Urine Total 800 ml 2225 ml # Bowel Movements 1 General Appearance: no acute distress HEENT: atraumatic Respiratory/Chest: expiratory wheezing Cardiovascular: normal rate Abdomen: soft, non tender Laboratory Tests 10/10/17 07:00: White Blood Count 5.0, Red Blood Count 3.50L, Hemoglobin 10.4L, Hematocrit 33.1L , Mean Corpuscular Volume 95, Mean Corpuscular Hemoglobin 29.7, Mean Corpuscular Hemoglobin Concent 31.4L, Red Cell Distribution Width 15.1H, Platelet Count 109L, Mean Platelet Volume 8.0, Neutrophils (%) (Auto) 64.9, Lymphocytes (%) (Auto) 20.2, Monocytes (%) (Auto) 12.5H, Eosinophils (%) (Auto) 1.7, Basophils (%) (Auto) 0.7, Sodium Level 141, Potassium Level 4.0, Chloride Level 102, Carbon Dioxide Level 33H, Anion Gap 6, Blood Urea Nitrogen 16, Creatinine 1.2, Estimat Glomerular Filtration Rate , Glucose Level 95, Calcium Level 8.5, Magnesium Level 1.3L, Pro-B-Type Natriuretic Peptide 2433H Current Medications Medications (Trade) Dose Ordered Sig/Scot Route PRN Reason Start Time Stop Time Status Last Admin Dose Admin Albuterol/ Ipratropium (Albuterol/ Ipratropium) 3 ml Q6HRT HHN 10/08/17 10:45 10/13/17 10:44 10/10/17 13:05 Aspirin (ASA) 81 mg DAILY ORAL 10/07/17 21:00 11/06/17 20:59 10/10/17 08:34 Atorvastatin Calcium (Lipitor) 20 mg BEDTIME ORAL 10/07/17 21:00 11/06/17 20:59 10/09/17 20:19 Dextrose (Dextrose 50%) STAT PRN IV Hypoglycemia 10/07/17 20:45 11/06/17 20:44 Diltiazem HCl (Cardizem CD) 180 mg DAILY ORAL 10/08/17 13:30 11/07/17 13:29 10/10/17 08:35 Enoxaparin Sodium (Lovenox) 60 mg DAILY SUBQ 10/09/17 09:00 11/06/17 20:59 10/10/17 08:42 Finasteride (Proscar) 5 mg DAILY ORAL 10/08/17 13:30 11/07/17 13:29 10/10/17 08:35 Furosemide (Lasix) 40 mg Q8HR IV 10/08/17 14:00 11/06/17 20:59 10/10/17 13:41 Iron Sucrose 100 mg/Sodium Chloride 60 ml @ 240 mls/hr BEDTIME IV 10/09/17 21:00 10/13/17 21:14 10/09/17 20:17 Losartan Potassium (Cozaar) 50 mg EVERY 12 HOURS ORAL 10/07/17 21:00 11/06/17 20:59 10/10/17 08:35 Metoprolol Succinate (Toprol XL) 50 mg DAILY ORAL 10/07/17 21:00 11/06/17 20:59 10/10/17 08:35 Pantoprazole (Protonix) 40 mg DAILY ORAL 10/08/17 13:30 11/07/17 13:29 10/10/17 08:35 Potassium Chloride (K-Dur) 20 meq TWICE A DAY ORAL 10/08/17 13:30 11/07/17 13:29 10/10/17 08:35 Spironolactone (Aldactone) 25 mg DAILY ORAL 10/08/17 09:00 11/07/17 08:59 10/10/17 08:35 Tamsulosin HCl (Flomax) 0.8 mg BEDTIME ORAL 10/08/17 21:00 11/07/17 20:59 10/09/17 20:18 ERIN ARIAS Oct 10, 2017 16:42
[2017-10-10 20:08] VITALS: BP 103/55
[2017-10-10] MEDS: Atorvastatin 20mg tab ORAL SCH (20:29)
[2017-10-10] MEDS: Iron Sucrose 100 MG in NS 55 ML IV SCH (20:30)
[2017-10-10] MEDS: Tamsulosin 0.4mg cap ORAL SCH (20:30)
--- NOTE | 2017-10-10 22:00 | Discharge Summary ---
DATE OF ADMISSION: 10/07/2017 DATE OF DISCHARGE: 10/11/2017 PERTINENT HISTORY: The patient is admitted with shortness of breath, congestive heart failure, and chronic obstructive pulmonary disease. He has had recurrent exacerbations. There is a history of prior CVA, permanent pacemaker, atrial fibrillation, and prior gastrointestinal bleeding. He had increasing shortness of breath and presented to the emergency room with the above. PERTINENT PHYSICAL EXAM: HEAD, EYES, EARS, NOSE, AND THROAT: He is edentulous. Oral mucosa moist. NECK: No adenopathy. LUNGS: Bilateral rhonchi and crackles at the bases. In moderate distress. HEART: Regular rhythm with a 2-3/6 systolic murmur. ABDOMEN: Soft. Unable to feel liver or spleen. EXTREMITIES: No edema. He has dry scaly skin. NEUROLOGIC: He is alert and responsive. He is severely dysarthric. COURSE IN THE HOSPITAL: The patient was diuresed and given pulmonary care. With the above treatment, he had marked improvement of his respiratory distress and a negative fluid balance. He has maintained a paced rhythm. His electrolytes were monitored serially. The patient was seen by Dr. Chay Godinez in Cardiology consultation and Dr. Hammer in Pulmonary consultation. On the day of discharge, his vital signs were stable. His pulse ox was normal on room air. Lungs showed few faint rhonchi, in no distress. Heart, regular rhythm with a 2/6 systolic ejection murmur. Extremities, no edema. His electrolytes were stable and he was discharged home in stable condition. FINAL DIAGNOSES: 1. Congestive heart failure, acute on chronic with systolic and diastolic dysfunction. 2. History of permanent pacemaker. 3. History of paroxysmal atrial fibrillation. 4. History of prior cerebrovascular accident. 5. History of prior gastrointestinal bleeding. 6. Acute bronchitis. 7. Chronic obstructive pulmonary disease with acute exacerbation. 8. Anemia, iron deficiency, chronic. DISCHARGE DISPOSITION: Home on a low-salt diet. DISCHARGE MEDICATIONS: Per the discharge medication list. FOLLOWUP: Follow up in the office of Dr. Rubalcava within a week. His medication changes have been discussed with the daughter, who will supervise, but he is taking indeed Lasix 80 mg b.i.d. Martinez Rubalcava M.D. DR: CRISTINA JOB#: [id number] CC: AN
[2017-10-11] VITALS: BP 108/52
[2017-10-11] MEDS: Albuterol/Ipratropium 3ml neb HHN SCH ×3 (01:00→12:42)
[2017-10-11 04:00] VITALS: BP 101/52
[2017-10-11 08:00] VITALS: BP 113/54
[2017-10-11] MEDS: dilTIAZem HCl CD 180mg cap ORAL SCH (08:41)
[2017-10-11] MEDS: Metoprolol Succinate XL 50mg tab ORAL SCH (08:42)
[2017-10-11] MEDS: Aspirin Baby 81mg ORAL SCH (08:42)
[2017-10-11] MEDS: Spironolactone 25mg tab ORAL SCH (08:42)
[2017-10-11] MEDS: Losartan 50mg tab ORAL SCH (08:42)
[2017-10-11] MEDS: Enoxaparin 60mg Inj SUBQ SCH (08:44)
--- NOTE | 2017-10-11 08:56 | Pulmonology Progress Note ---
Assessment/Plan Assessment/Plan IMPRESSION: 1. Acute on chronic systolic and diastolic congestive heart failure. 2. Paroxysmal atrial fibrillation with pacemaker. 3. R pleural effusion 4. Hypertensive and ischemic cardiomyopathy. 5. Chronic obstructive pulmonary disease. 6. Paroxysmal bronchospasm. PLAN: 1. Continue diuresis per cardiology 2. Maximize anti-failure regimen. 3. Respiratory therapy 4. No indication for steroids or abx 5. Agree with DC plan today Subjective ROS Limited/Unobtainable: Yes Allergies: Coded Allergies: VINCENT INHIBITORS (Verified Allergy, Mild, 08/06/17) SHELLFISH (Verified Allergy, Unknown, 07/01/11) Objective Last 24 Hour Vital Signs Date Time Temp Pulse Resp B/P (MAP) Pulse Ox O2 Delivery O2 Flow Rate FiO2 10/11/17 08:42 61 113/54 10/11/17 08:42 113/54 10/11/17 08:41 61 113/54 10/11/17 08:00 98.8 61 18 113/54 93 Room Air 10/11/17 06:52 63 16 99 Room Air 21 10/11/17 06:49 62 16 97 Room Air 21 10/11/17 06:48 Room Air 10/11/17 06:48 97 Room Air 21 10/11/17 04:00 98.0 20 101/52 97 Room Air 10/11/17 04:00 60 10/11/17 01:28 Room Air 10/11/17 01:27 Room Air 10/11/17 00:00 98.1 21 108/52 97 Room Air 10/11/17 00:00 60 10/10/17 20:29 103/55 10/10/17 20:08 98.5 60 22 103/55 100 10/10/17 20:04 61 10/10/17 19:12 61 16 99 Room Air 21 10/10/17 19:04 60 16 96 Room Air 21 10/10/17 19:04 Room Air 10/10/17 19:04 96 Room Air 21 10/10/17 16:00 62 10/10/17 16:00 97.0 68 20 106/56 96 Room Air 10/10/17 13:16 66 20 99 Room Air 21 10/10/17 13:05 65 16 94 Room Air 21 10/10/17 12:00 62 10/10/17 12:00 97.9 60 20 113/58 94 Nasal Cannula 2.0 Intake and Output 10/10/17 10/11/17 19:00 07:00 Intake Total 650 ml Output Total 1200 ml 400 ml Balance -550 ml -400 ml Intake Oral 650 ml Output Urine Total 1200 ml 400 ml General Appearance: no acute distress Respiratory/Chest: lungs clear, decreased breath sounds Cardiovascular: normal rate Current Medications Medications (Trade) Dose Ordered Sig/Scot Route PRN Reason Start Time Stop Time Status Last Admin Dose Admin Albuterol/ Ipratropium (Albuterol/ Ipratropium) 3 ml Q6HRT HHN 10/08/17 10:45 10/13/17 10:44 10/11/17 06:48 Aspirin (ASA) 81 mg DAILY ORAL 10/07/17 21:00 11/06/17 20:59 10/11/17 08:42 Atorvastatin Calcium (Lipitor) 20 mg BEDTIME ORAL 10/07/17 21:00 11/06/17 20:59 10/10/17 20:29 Dextrose (Dextrose 50%) STAT PRN IV Hypoglycemia 10/07/17 20:45 11/06/17 20:44 Diltiazem HCl (Cardizem CD) 180 mg DAILY ORAL 10/08/17 13:30 11/07/17 13:29 10/11/17 08:41 Enoxaparin Sodium (Lovenox) 60 mg DAILY SUBQ 10/09/17 09:00 11/06/17 20:59 10/11/17 08:44 Finasteride (Proscar) 5 mg DAILY ORAL 10/08/17 13:30 11/07/17 13:29 10/11/17 08:41 Furosemide (Lasix) 40 mg Q8HR IV 10/08/17 14:00 11/06/17 20:59 10/10/17 22:07 Iron Sucrose 100 mg/Sodium Chloride 60 ml @ 240 mls/hr BEDTIME IV 10/09/17 21:00 10/13/17 21:14 10/10/17 20:30 Losartan Potassium (Cozaar) 50 mg EVERY 12 HOURS ORAL 10/07/17 21:00 11/06/17 20:59 10/11/17 08:42 Metoprolol Succinate (Toprol XL) 50 mg DAILY ORAL 10/07/17 21:00 11/06/17 20:59 10/11/17 08:42 Pantoprazole (Protonix) 40 mg DAILY ORAL 10/08/17 13:30 11/07/17 13:29 10/11/17 08:42 Potassium Chloride (K-Dur) 20 meq TWICE A DAY ORAL 10/08/17 13:30 11/07/17 13:29 10/11/17 08:41 Spironolactone (Aldactone) 25 mg DAILY ORAL 10/08/17 09:00 11/07/17 08:59 10/11/17 08:42 Tamsulosin HCl (Flomax) 0.8 mg BEDTIME ORAL 10/08/17 21:00 11/07/17 20:59 10/10/17 20:30 ERIN ARIAS Oct 11, 2017 08:56
[2017-10-11 12:00] VITALS: BP 111/55
[2017-10-11] MEDS ORDERED: Tubing IV Secondary IV ONE (15:09)
[2017-10-11] MEDS ORDERED: NS 500ML ONE ×2 (15:09)
--- NOTE | 2017-10-12 01:30 | Progress Note ---
DATE: 10/10/2017 CARDIOLOGY PROGRESS NOTE Late entry, 10/10/2017. SUBJECTIVE: The patient was seen and evaluated. The case was discussed with Dr. Rubalcava. The patient's condition is improving. He is less short of breath. He is responding well to IV diuretics. OBJECTIVE: VITAL SIGNS: Blood pressure of 113/58, pulse 60, respirations 20, and afebrile. Monitored rhythm, atrial fibrillation with ventricular pacing. LUNGS: Coarse breath sounds. Few rales. HEART: Regular rhythm and rate. Normal S1, paradoxically split S2. A 1/6 systolic murmur at apex. ABDOMEN: Soft, nontender. EXTREMITIES: With trace edema. LABORATORY DATA: White count 5, hemoglobin 10.4. Potassium 4, BUN 16, and creatinine 1.2. Pro-natriuretic peptide is decreased from 5300 to 2400. IMPRESSION: 1. Acute on chronic systolic and diastolic congestive heart failure, improving. 2. Chronic obstructive pulmonary disease with no acute bronchospasm. 3. Atrial fibrillation, rate controlled. 4. Permanent pacemaker with stable function. 5. Hypertensive cardiomyopathy with controlled blood pressure. 6. Ischemic cardiomyopathy with stable angina. PLAN: 1. Maintain current cardiovascular regimen with continued intravenous diuresis. 2. Expect transition to oral maintenance therapy over the next 24 hours. Chay Godinez M.D. : CELIA JOB#: [id number] CC:
--- NOTE | 2017-10-12 01:45 | Progress Note ---
DATE: 10/11/2017 CARDIOLOGY PROGRESS NOTE SUBJECTIVE: The patient's condition has improved further. He is not short of breath. OBJECTIVE: VITAL SIGNS: Blood pressure 113/54, heart rate 61, respiratory rate 18. Monitored rhythm is atrial fibrillation, ventricular pacing. LUNGS: Good breath sounds. No wheezing. HEART: Irregularly rhythm. Normal S1, S2 with a 1/6 systolic apical murmur. ABDOMEN: Soft. EXTREMITIES: No edema. IMPRESSION: 1. Acute on chronic systolic and diastolic congestive heart failure, now clinically compensated. 2. Permanent pacemaker with stable function. 3. Right pleural effusion of no hemodynamic significance and improving. 4. Paroxysmal atrial fibrillation, rate controlled. 5. Hypertensive heart disease with controlled blood pressure. 6. Ischemic cardiomyopathy with stable angina class 1. 7. Chronic obstructive pulmonary disease with no active bronchospasm. PLAN: 1. Plan of care reviewed. 2. Stable for outpatient followup. 3. Medications reviewed. 4. Transition from IV to oral diuretic at discharge time. 5. Outpatient pacemaker interrogation to follow. Chay Godinez M.D. DR: Xavier JOB#: [id number] CC:
== END 2017-10-11 15:10 | disposition home or self-care (01) | DRG 292 ==
LOC: EMR 16:50 → 2E 16:55 → EDBEDREQ 20:18 → 2E 21:09
DX: I11.0 Hypertensive heart disease with heart failure (principal); J44.1 Chronic obstructive pulmonary disease with (acute) exacerbation; J44.0 Chronic obstructive pulmonary disease with (acute) lower respiratory infection; I48.0 Paroxysmal atrial fibrillation; I69.322 Dysarthria following cerebral infarction; E44.1 Mild protein-calorie malnutrition; I25.5 Ischemic cardiomyopathy; Z95.0 Presence of cardiac pacemaker; J20.9 Acute bronchitis, unspecified; D50.9 Iron deficiency anemia, unspecified; Z88.8 Allergy status to other drugs, medicaments and biological substances; Z87.891 Personal history of nicotine dependence; I50.43 Acute on chronic combined systolic (congestive) and diastolic (congestive) heart failure
CPT/HCPCS: 36415; 71045; 80048; 80053; 81003; 82550; 82553; 83605; 83735; 83880; 84484; 85007; 85025; 86710; 87040; 93005; 93306; 94640; 94664; 94760; 99285; J7620; J8499

== ENCOUNTER 2017-11-09 09:33 | Inpatient (IN) | payer MEDICARE, OTHER ==
[~2017-11-09] VITALS: Ht 170.2 cm; Wt 58.1 kg
[~2017-11-09 09:33] MED LIST changes: +ASPIR 8181 MG ORAL; +CARTIA XT180 MG ORAL; +DILTIAZEM 24HR240 M1 PO; +FERROUS GLUCON324 M2 PO; +METOPROLOL SUCC50 MG ORAL; +PANTOPRAZOLE SO40 MG ORAL; +POTASSIUM CHLO20 ME1 ORAL
[2017-11-09 09:55] VITALS: BP 153/78
[2017-11-09] MEDS ORDERED: Solu-MEDROL 125mg Inj IVP ONE (10:15)
[2017-11-09] MEDS ORDERED: Morphine Sulfate 2mg/ml Inj IVP ONE (10:15)
[2017-11-09] MEDS ORDERED: Albuterol ud Inhalation HHN ONE (10:15)
[2017-11-09] MEDS ORDERED: Ipratropium 0.02% Inh Soln 2.5ml UD HHN ONE (10:15)
[2017-11-09 10:36] LABS: BASOPHILS % (AUTO) 0.9 % (0.0-2.0); EOSINOPHILS % (AUTO) 0.8 % (0.0-3.0); HEMATOCRIT 33.9 % (42.0-52.0); HEMOGLOBIN 10.6 G/DL (14.2-18.0); LYMPHOCYTES % (AUTO) 17.7 % (20.0-45.0); MEAN CORPUSCULAR VOLUME 93 FL (80-99); MONOCYTES % (AUTO) 11.6 % (1.0-10.0); PLATELET COUNT 133 K/UL (150-450); RED BLOOD COUNT 3.63 M/UL (4.70-6.10); RED CELL DISTRIBUTION WIDTH 14.1 % (11.6-14.8); WHITE BLOOD COUNT 5.6 K/UL (4.8-10.8)
--- NOTE | 2017-11-09 10:47 | Diagnostic Imaging Report ---
Indication: Reason For Exam: ABD PAIN Technique: XRAY Abdomen 1v Comparison: 08/09/2017. Findings: A left hip arthroplasty is again seen. The bowel gas pattern is nonobstructive. A right pleural effusion is noted. The heart is enlarged. There is a pacemaker. Degenerative changes noted in the spine.*Calcifications are present. Impression: Right pleural effusion. Cardiomegaly. Pacemaker. Left hip arthroplasty. No evidence of bowel obstruction. Atherosclerotic change. Degenerative changes of the spine.
--- NOTE | 2017-11-09 10:48 | Diagnostic Imaging Report ---
Indication: Shortness of breath Technique: XRAY Chest 1v. Comparison: 10/07/2017 Findings: The cardiomediastinal silhouette is unchanged. No new infiltrates are identified. Claydorene moncadaly with evidence of congestive heart failure and a right pleural effusion remain. Impression: Cardiomegaly with congestive heart failure, unchanged from previous study. No other significant change from prior examination.
[2017-11-09 10:49] LABS: INR 1.3 (0.9-1.1)
[2017-11-09 10:52] LABS: ANION GAP 7 mmol/L (5-15); BLOOD UREA NITROGEN 13 mg/dL (7-18); CALCIUM 9.2 MG/DL (8.5-10.1); CARBON DIOXIDE 29 MMOL/L (21-32); CHLORIDE 107 MMOL/L (98-107); CREATININE 1.1 MG/DL (0.55-1.30); POTASSIUM 4.3 MMOL/L (3.5-5.1); SODIUM 143 MMOL/L (136-145)
[2017-11-09 10:57] VITALS: BP 132/62
[2017-11-09 11:00] LABS: ALANINE AMINOTRANSFERASE 13 U/L (12-78); ALBUMIN 3.1 G/DL (3.4-5.0); ALBUMIN/GLOBULIN RATIO 0.5 (1.0-2.7); ALKALINE PHOSPHATASE 149 U/L (46-116); ASPARTATE AMINO TRANSFERASE 25 U/L (15-37); BILIRUBIN,TOTAL 0.9 MG/DL (0.2-1.0); CREATINE KINASE 149 U/L (26-308)
[2017-11-09] MEDS ORDERED: Morphine Sulfate 4mg/ml Inj IVP ONE (11:00)
[2017-11-09 13:31] VITALS: BP 128/68
--- NOTE | 2017-11-09 13:35 | Emergency Room Report ---
History of Present Illness General Chief Complaint: Dyspnea/Respdistress Source: Patient, Caregiver Present Illness HPI Patient presents with nontraumatic low back pain and rectal bleeding. Also he is short of breath. This began yesterday. Pain is worse on the left-hand side of his back and radiates down his left leg. He rates pain 10/10 to me (8/10 to RN). Has never had pain like this before according to him. Pain is burning. The rectal bleeding was scan amount and BRB. Straining with passing stool. No pain in the rectum. H/O GI bleed in past - felt to be from small bowel. Endoscopies apparently negative. He is on aspirin. No fevers, chills, vomiting, diarrhea. No dysuria. Post CVA with dysarthria/expressive aphasia. The patient has COPD and CHF. He denies any chest pain. Last used his nebulizer last night. Last admitted 10/11 with these discharge dx: 1. Congestive heart failure, acute on chronic with systolic and diastolic dysfunction. 2. History of permanent pacemaker. 3. History of paroxysmal atrial fibrillation. 4. History of prior cerebrovascular accident. 5. History of prior gastrointestinal bleeding. 6. Acute bronchitis. 7. Chronic obstructive pulmonary disease with acute exacerbation. 8. Anemia, iron deficiency, chronic. Allergies: Coded Allergies: VINCENT INHIBITORS (Verified Allergy, Mild, 08/06/17) SHELLFISH (Verified Allergy, Unknown, 07/01/11) Patient History Limited by: language barrier - aphasia Past Medical History: see triage record, old chart reviewed Past Surgical History: pacemaker, other - L hip replacement Social History: Denies: smoking, alcohol use, drug use Social History Narrative with Neonatal Specialist Reviewed Nursing Documentation: PMH: Agreed, PSxH: Agreed Nursing Documentation-PMH Hx Cardiac Problems: Yes Hx Hypertension: Yes Hx Pacemaker: Yes - VPACED Hx Asthma: Yes Hx COPD: Yes Hx Diabetes: No Hx Cancer: No Hx Gastrointestinal Problems: Yes Hx Neurological Problems: Yes Hx Cerebrovascular Accident: Yes Hx Speech Problem: Yes - Aphesia Hx Dizziness: Yes Hx Syncope: Yes Hx Headaches: Yes Hx Aphasia: Yes Hx Dysphasia: Yes Hx Weakness: Yes Hx Fatigue: Yes Review of Systems All Other Systems: negative except mentioned in HPI Physical Exam Vital Signs Date Time Temp Pulse Resp B/P (MAP) Pulse Ox O2 Delivery O2 Flow Rate FiO2 11/09/17 09:39 97.3 75 26 153/78 90 Room Air 97.3 11/09/17 10:15 2.0 28 Sp02 EP Interpretation: reviewed, abnormal - interpreted as low by me General Appearance: non-toxic, mild distress, thin, Chronically Ill Head: normocephalic Eyes: bilateral eye normal inspection, bilateral eye PERRL ENT: moist mucus membranes Neck: supple Respiratory: decreased breath sounds - R, wheezing, expiration, other - pacer Cardiovascular #1: JVD, irregularly irregular, other - displaced PMI, edema - trace Cardiovascular #2: 2+ radial (R) Gastrointestinal: normal inspection, normal bowel sounds, non tender, non- distended, hepatomegaly, scaphoid Rectal: heme negative stool - brown, no impaction Genitourinary: normal inspection Musculoskeletal: normal range of motion, swelling - DJD, tender - lumbar area with + SLR L. 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 DDx: pneumonia, COPD, CHF, AMI, aneurism, sciatica, herniated disk, fx amongst others. Stool negative for blood at this time - consider hemrrhoid vs other process (2016 colonoscopy encouraging). Evaluation with EKG, CXR, Abd films, CT abdomen and L spine. Treatment with breathing treatments, solumedrol and analgesia. Labs with normal WBC and slightly low H/H. Normal lactate and troponin. CMP normal,. Elevated BNP. Resolution of prior renal disease. CXR with large cor and R effusion (similar to recent x-ray, might be slightly worsened). Abd film with large hepar, no SBO and L hip prosthesis. Improved with breathing treatments and analgesia. CT chest with RLL infiltrate suggestive of pneumonia (although could be compressive phenomenon from effusion) - BC ordered and antibiotics begun. Pericardial effusion and loculated effusion R. CT LS spine - spinal stenosis, DJD and foraminal stenosis Left L5/S1. Examined by Dr. Rubalcava in ED. Complex patient with multiple co-morbidities admitted to medical floor. Laboratory Tests Test 11/09/17 10:07 White Blood Count 5.6 K/UL (4.8-10.8) Red Blood Count 3.63 M/UL (4.70-6.10) L Hemoglobin 10.6 G/DL (14.2-18.0) L Hematocrit 33.9 % (42.0-52.0) L Mean Corpuscular Volume 93 FL (80-99) Mean Corpuscular Hemoglobin 29.3 PG (27.0-31.0) Mean Corpuscular Hemoglobin Concent 31.4 G/DL (32.0-36.0) L Red Cell Distribution Width 14.1 % (11.6-14.8) Platelet Count 133 K/UL (150-450) L Mean Platelet Volume 7.5 FL (6.5-10.1) Neutrophils (%) (Auto) 69.0 % (45.0-75.0) Lymphocytes (%) (Auto) 17.7 % (20.0-45.0) L Monocytes (%) (Auto) 11.6 % (1.0-10.0) H Eosinophils (%) (Auto) 0.8 % (0.0-3.0) Basophils (%) (Auto) 0.9 % (0.0-2.0) Prothrombin Time 13.3 SEC (9.30-11.50) H Prothrombin Time INR 1.3 (0.9-1.1) H PTT 34 SEC (23-33) H Sodium Level 143 MMOL/L (136-145) Potassium Level 4.3 MMOL/L (3.5-5.1) Chloride Level 107 MMOL/L (98-107) Carbon Dioxide Level 29 MMOL/L (21-32) Anion Gap 7 mmol/L (5-15) Blood Urea Nitrogen 13 mg/dL (7-18) Creatinine 1.1 MG/DL (0.55-1.30) Estimate Glomerular Filtration Rate mL/min (>60) Glucose Level 89 MG/DL (74-106) Lactic Acid Level 1.60 mmol/L (0.66-2.22) Calcium Level 9.2 MG/DL (8.5-10.1) Total Bilirubin 0.9 MG/DL (0.2-1.0) Aspartate Amino Transferase (AST) 25 U/L (15-37) Alanine Aminotransferase (ALT) 13 U/L (12-78) Alkaline Phosphatase 149 U/L (46-116) H Total Creatine Kinase 149 U/L (26-308) Troponin I 0.028 ng/mL (0.000-0.056) Pro-B-Type Natriuretic Peptide 6826 pg/mL (0-125) H Total Protein 9.2 G/DL (6.4-8.2) H Albumin 3.1 G/DL (3.4-5.0) L Globulin 6.1 g/dL Albumin/Globulin Ratio 0.5 (1.0-2.7) L Lipase 72 U/L (73-393) L EKG Diagnostic Results Rate: normal Rhythm: other - a fib and paced ST Segments: no acute changes Rhythm Strip Diag. Results EP Interpretation: yes Rhythm: no PVC's, no ectopy, other - a fib and paced Chest X-Ray Diagnostic Results Chest X-Ray Diagnostic Results : Chest X-Ray Ordered: Yes # of Views/Limited/Complete: 1 View Indication: Shortness of Breath Interpretation: other - copd, inc cor R effusion, pacer Impression: Other Electronically Signed by: Electronically signed by Chay Valente MD Other X-Ray Diagnostic Results Other X-Ray Diagnostic Results : # of Views/Limited Vs Complete: 2 View Indication: Other EP Interpretation: Yes Interpretation: nonspecific bowel gas, no sbo, other - inc hepar, L hip Impression: Other Electronically Signed by: Electronically signed by Chay Valente MD CT/MRI/US Diagnostic Results CT/MRI/US Diagnostic Results #1: Imaging Test Ordered: L spine Impression see above and report CT/MRI/US Diagnostic Results #2: Imaging Test Ordered: abd pelvis Impression see above and report Last Vital Signs Date Time Temp Pulse Resp B/P (MAP) Pulse Ox O2 Delivery O2 Flow Rate FiO2 11/09/17 11:17 207.1 11/09/17 10:57 22 132/62 100 Nasal Cannula 2.0 28 11/09/17 10:46 74 Disposition: ADMITTED INPATIENT Condition: Serious Referrals: NON PHYSICIAN (PCP) Chay Valente M.D. Nov 09, 2017 13:35
[2017-11-09] MEDS ORDERED: Miralax 17gm pkt ORAL PRN (14:30)
[2017-11-09] MEDS ORDERED: Nitroglycerin Subl 0.4mg tab SL PRN (14:30)
[2017-11-09] MEDS: Sennosides 8.6mg ORAL SCH (14:30)
[2017-11-09] MEDS: Albuterol/Ipratropium 3ml neb HHN SCH ×3 (15:00→23:33)
[2017-11-09] MEDS ORDERED: cefTRIAXone 1 GM in NS 55 ML IVPB ONE (15:30)
--- NOTE | 2017-11-09 17:30 | History and Physical Report ---
DATE OF ADMISSION: 11/09/2017 CHIEF COMPLAINT AND REASON FOR HOSPITALIZATION: The patient is admitted with severe back pain. HISTORY OF PRESENT ILLNESS: The patient is well known to me. He has severe congestive heart failure, COPD, permanent pacemaker, atrial fibrillation, prior GI bleeding. He has had multiple hospitalizations for the above problems. He has some chronic back pain, but today presented with severe unremitting back pain, unable to walk and worse than in the past. There is no trauma. He required intravenous narcotics in the emergency room. PAST SURGERIES: Permanent pacemaker. MEDICATIONS: Potassium 20 mEq b.i.d, aspirin 81 mg daily, diltiazem ER 240 once a day, ferrous gluconate 324 daily, finasteride 5 mg daily, furosemide 80 mg b.i.d., losartan 50 mg daily, metoprolol ER 50 mg daily, Protonix 40 mg daily, prazosin 5 mg at bedtime, simvastatin 40 mg at bedtime, spironolactone 25 mg daily. ALLERGIES: VINCENT inhibitors cause angioedema. HABITS: He is a former smoker, quit many years ago. Alcohol, occasional. Drugs, none. SOCIAL HISTORY: Lives with family. SYSTEM REVIEW: HEAD, EYES, EARS, NOSE, THROAT: He is edentulous. Hearing is good. Vision is good. ENDOCRINE: No diabetes or thyroid disease. PULMONARY: Severe COPD with recurrent exacerbations requiring prior BiPAP, steroids, and nebulizer treatment. No TB. CARDIAC: History of CHF with low ejection fraction, mitral regurgitation. GASTROINTESTINAL: He has had multiple endoscopies without a good source of bleeding in the past. Anticoagulants were stopped due to GI bleeding in the past. GENITOURINARY: He has BPH, nocturia 3 to 4 times, decreased stream of urine. NEUROLOGIC: History of CVA with severe dysarthria. He is able to communicate by gestures. He moves all extremities. MUSCULOSKELETAL: History of back pain in the past, but this is much worse. PHYSICAL EXAMINATION: GENERAL: The patient is peacefully lying in bed in the emergency room, chronically ill-appearing, thin elderly man. VITAL SIGNS: Respirations 22, pulse 74, blood pressure 128/68, pulse oximetry . HEAD, EYES, EARS, NOSE, THROAT: Sclerae nonicteric. Ocular motions intact in all directions. He is edentulous. Oral mucosa moist. NECK: No adenopathy. LUNGS: Diminished breath sounds at the right base. Few expiratory rhonchi. HEART: Rhythm is regular with ectopic beats and 2/6 systolic murmur. ABDOMEN: Soft. I am unable to feel liver or spleen. EXTREMITIES: No edema, cyanosis, or clubbing. SKIN: There is chronic brawny skin in the lower extremities. BACK: He complains of generalized pain. There was no focal tenderness. There is no severe kyphosis. PERTINENT LABORATORY DATA: Show white count of 5.6, hemoglobin is 10.6. Sodium 143, potassium 4.3, BUN 13, creatinine 1.1. Troponin 0.028. BNP 6826. Albumin 3.1. A chest x-ray shows cardiomegaly, CHF, right pleural effusion. The abdomen x-ray shows left hip arthroplasty, no bowel obstruction, degenerative changes of the spine. IMPRESSION: 1. Back pain exacerbation due to osteoarthritis of the spine, possible spinal stenosis and discogenic disease. 2. Cardiomegaly and congestive heart failure with pleural effusions, decompensated with low ejection fraction. 3. COPD. 4. Anemia. 5. History of prior GI bleeding. 6. Atrial fibrillation. 7. Permanent pacemaker. 8. History of CVA. PLAN: The patient will be put on a regimen of pain medicine and symptomatic care. We will check the imaging of his spine. We will make further recommendations as his condition evolves. We will also treat his CHF with increased doses of diuretics and give nebulized treatment for COPD. He may need thoracentesis given the size of his pleural effusion. Case is complicated. Martinez Rubalcava M.D. DR: Shannan JOB#: [id number] CC:
[2017-11-09] MEDS: Enoxaparin 40mg Inj SUBQ SCH (18:30)
[2017-11-09 18:50] VITALS: BP 144/76
[2017-11-09 20:00] VITALS: BP 132/79
[2017-11-09] MEDS: HYDROcodone/Acetamin 7.5/325 tab ORAL SCH (21:41)
[2017-11-09] MEDS: Docusate 100mg cap ORAL SCH (21:42)
[2017-11-09] MEDS: Tamsulosin 0.4mg cap ORAL SCH (21:43)
[2017-11-10] VITALS: BP 129/63
[2017-11-10] MEDS: HYDROcodone/Acetamin 7.5/325 tab ORAL SCH ×6 (01:55→21:00)
[2017-11-10] MEDS: Albuterol/Ipratropium 3ml neb HHN SCH ×6 (02:52→23:40)
[2017-11-10 04:00] VITALS: BP 130/72
[2017-11-10 08:00] VITALS: BP 131/66
--- NOTE | 2017-11-10 08:56 | Diagnostic Imaging Report ---
Indication: Reason For Exam: BLD Technique: CT scan of the abdomen and pelvis was performed from the diaphragms to the symphysis pubis with intravenous contrast material and oral contrast material. Biphasic liver scanning was employed. 5 mm sections were generated. Axial, coronal, and sagittal images are presented. Dose: Total Dose Length Product - DLP [address] Dose Index - CTDIvol(s) 10.55 mGy. Automated exposure control was utilized for dose reduction. Comparison: 11/17/2011 Findings: There is a right pleural effusion with some high density in the pleural fluid. Pleural thickening is also noted on the right. A smaller left pleural effusion is present. The heart is considerably enlarged. Pacer wires are noted and the heart. There is a pericardial effusion. The right atrium is dilated. It is volume loss in the right lower lobe. Liver demonstrates an enlarged inferior vena cava and hepatic veins. There is a calcified stone in the gallbladder. The spleen is unremarkable. The stomach is distended. Pancreas is poorly visualized but grossly normal. Adrenal glands are unremarkable. The aorta is calcified. Retroperitoneum is free of adenopathy. The kidneys are grossly unremarkable. Small bowel is normal caliber. There is mild distention of the rectosigmoid colon but the remaining colon is normal. The pelvis is obscured by artifacts from a left hip arthroplasty. The bladder is grossly unremarkable. Impression: Revaluate with pacemaker. Right pleural effusion, complicated, with pleural thickening and some high density material within the pleural fluid. Whether this represents blood in the pleural fluid or whether this represents abnormal soft tissue is not certain.. Pericardial effusion. Volume loss in the right lower lobe. Tiny left pleural effusion. Cholelithiasis. Atherosclerotic change. Dilated inferior vena cava and hepatic veins. The possibility of right heart failure should be considered. Tricuspid regurgitation is another possibility. Left hip total arthroplasty. The above report is concordant with preliminary reading by [employer] . The CT scanner at [facility] is accredited by the [employer] and the scans are performed using protocols designed to limit radiation exposure to as low as reasonably achievable to attain images of sufficient resolution adequate for diagnostic evaluation.
[2017-11-10] MEDS: Enoxaparin 40mg Inj SUBQ SCH (09:00)
--- NOTE | 2017-11-10 09:02 | Diagnostic Imaging Report ---
Indication: Pain Technique: Continuous helical scanning was performed without any contrast material from the diaphragms through the pelvis . Axial, sagittal, and coronal images were generated. Dose: Total Dose Length Product - DLP [address] Dose Index - CTDIvol(s) 10.55 mGy. Automated exposure control was utilized for dose reduction. Comparison: None Findings: L5-S1: There is some narrowing of the disc. Minimal annular bulge is noted. Narrowing of both neural foramina is present with loss of perineural fat, greater on the left than on the right. There is mild facet degenerative change. Spinal canal is normal in width. L4-L5: There is moderate degenerative change of the facets with some ligamentous hypertrophy. Annular bulge of the disc is noted with posterior spurring. This is causing a spinal stenosis. Bilateral foraminal stenosis is noted, greater on the right than the left. There is loss of perineural fat. L3-L4: There is mild annular bulge of the disc. Mild to moderate degenerative changes noted in the posterior facets and minimal ligamentous hypertrophy. Spinal canal is borderline in size. There is slight foraminal narrowing but no loss of perineural fat. L2-L3: Mild annular bulge of the disc is noted. There is mild degenerative change of the posterior facets. Spinal canal is not narrowed. There is some mild narrowing of the foramina but no loss of perineural fat. L1-L2: The disc is normal. The neural foramina are unremarkable. The facets are normal. The spinal canal is normal in width. The nerve roots are symmetric. Spur formation is also noted anteriorly and on the right and left at multiple levels throughout the spine. Vascular calcifications are also present. Impression: Degenerative spondylosis. Foraminal stenosis at L4-5 and L5-S1, worst at L5-S1. Atherosclerotic change. Spinal stenosis at L4-5. Borderline canal at L3-4. No evidence of acute abnormality. The above report is concordant with preliminary reading by [employer] . The CT scanner at [facility] is accredited by the [employer] and the scans are performed using protocols designed to limit radiation exposure to as low as reasonably achievable to attain images of sufficient resolution adequate for diagnostic evaluation. Lumbar
[2017-11-10] MEDS: Docusate 100mg cap ORAL SCH ×2 (09:12→20:59)
[2017-11-10] MEDS: Aspirin EC 81mg tab ORAL SCH (09:12)
[2017-11-10] MEDS: Sennosides 8.6mg ORAL SCH (09:12)
[2017-11-10] MEDS: dilTIAZem HCl CD 240mg cap ORAL SCH (09:13)
[2017-11-10] MEDS: Spironolactone 25mg tab ORAL SCH (09:13)
[2017-11-10] MEDS: Losartan 50mg tab ORAL SCH (09:14)
[2017-11-10] MEDS: Metoprolol Succinate XL 50mg tab ORAL SCH (09:14)
[2017-11-10 11:49] VITALS: BP 117/64
--- NOTE | 2017-11-10 13:46 | General Progress Note ---
Assessment/Plan Problem List: (1) Gait abnormality ICD Codes: R26.9 - Unspecified abnormalities of gait and mobility SNOMED: 23081775 (2) Pleural effusion ICD Codes: J90 - Pleural effusion, not elsewhere classified SNOMED: 33341778 (3) CHF (congestive heart failure), NYHA class IV ICD Codes: I50.9 - Heart failure, unspecified SNOMED: 059033152, 067280407 (4) Spinal stenosis ICD Codes: M48.00 - Spinal stenosis, site unspecified SNOMED: 94195494 Qualifiers: Qualified Codes: M48.061 - Spinal stenosis, lumbar region without neurogenic claudication (5) 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 ICD Codes: M51.26 - Other intervertebral disc displacement, lumbar region SNOMED: 83480009 (6) 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 repeat cxr Subjective Constitutional: Reports: weakness HEENT: Reports: no symptoms Cardiovascular: Reports: no symptoms Respiratory: Reports: cough, shortness of breath Gastrointestinal/Abdominal: Reports: no symptoms Genitourinary: Reports: other - slow stream Neurologic/Psychiatric: Reports: pre-existing deficit Endocrine: Reports: no symptoms Hematologic/Lymphatic: Reports: no symptoms Allergies: Coded Allergies: VINCENT INHIBITORS (Verified Allergy, Mild, 08/06/17) SHELLFISH (Verified Allergy, Unknown, 07/01/11) Objective Last 24 Hour Vital Signs Date Time Temp Pulse Resp B/P (MAP) Pulse Ox O2 Delivery O2 Flow Rate FiO2 11/10/17 13:10 97.0 11/10/17 13:10 97.0 11/10/17 11:49 97.0 61 20 117/64 99 97.0 11/10/17 10:26 72 20 96 Nasal Cannula 2.0 28 11/10/17 10:16 72 20 96 Nasal Cannula 2.0 28 11/10/17 10:12 97.2 11/10/17 10:12 97.2 11/10/17 09:14 97.2 11/10/17 09:14 84 131/66 11/10/17 09:14 131/66 11/10/17 09:13 97.2 11/10/17 09:13 84 131/66 11/10/17 08:00 97.2 84 22 131/66 91 97.2 11/10/17 07:54 Nasal Cannula 2.0 28 11/10/17 07:52 Nasal Cannula 11/10/17 07:49 Nasal Cannula 11/10/17 07:47 96 Nasal Cannula 2.0 28 11/10/17 04:00 97.7 70 19 130/72 96 Nasal Cannula 97.7 11/10/17 03:01 69 20 97 Nasal Cannula 2.0 28 11/10/17 02:51 69 20 97 Nasal Cannula 2.0 28 11/10/17 02:51 28 11/10/17 00:00 97.3 67 20 129/63 97 Nasal Cannula 97.3 11/09/17 23:44 65 20 98 Nasal Cannula 2.0 28 11/09/17 23:38 95 Nasal Cannula 2.0 28 11/09/17 23:38 Nasal Cannula 2.0 28 11/09/17 23:36 67 22 95 Nasal Cannula 2.0 28 11/09/17 21:00 20 Nasal Cannula 2.0 28 11/09/17 20:00 97.0 83 18 132/79 94 Nasal Cannula 97.0 11/09/17 19:18 97.6 18 127/82 95 Nasal Cannula 2.0 28 97.6 11/09/17 18:50 97.6 18 144/76 95 Nasal Cannula 2.0 97.6 Intake and Output 11/09/17 11/10/17 19:00 07:00 Intake Total 0 ml 55 ml Balance 0 ml 55 ml Intake Oral 0 ml IV Total 55 ml # Voids 3 # Bowel Movements 1 Height (Feet): 5 Height (Inches): 8.00 Weight (Pounds): 130 General Appearance: alert, thin EENT: other - edent Neck: normal alignment Cardiovascular: normal rate Respiratory/Chest: decreased breath sounds, crackles/rales, rhonchi - bilaterally Abdomen: non tender Edema: no edema noted Arm (L), no edema noted Arm (R), no edema noted Leg (L), no edema noted Leg (R), no edema noted Pedal (L), no edema noted Pedal (R), no edema noted Generalized Neurologic: other - dysarthric Objective seen with PT back pain mod with walk HODAN GAYTAN Nov 10, 2017 13:46
[2017-11-10 16:00] VITALS: BP 105/58
--- NOTE | 2017-11-10 16:20 | Cardiology Report ---
APPROVED REPORT EKG Measurement Heart [id number] Atrial fibrillation with occasional V-paced beats. Marked ST abnormality , caanot r/o ischemia Prolonged QT Abnormal ECG
[2017-11-10 20:00] VITALS: BP 107/62
[2017-11-10] MEDS: Tamsulosin 0.4mg cap ORAL SCH (20:59)
[2017-11-11] VITALS (7 sets, daily range): BP systolic 91–133; BP diastolic 51–67
[2017-11-11] MEDS: HYDROcodone/Acetamin 7.5/325 tab ORAL SCH ×6 (01:00→20:42)
[2017-11-11] MEDS: Albuterol/Ipratropium 3ml neb HHN SCH ×7 (03:45→23:38)
[2017-11-11 07:32] LABS: HEMATOCRIT 29.2 % (42.0-52.0); HEMOGLOBIN 9.1 G/DL (14.2-18.0); MEAN CORPUSCULAR VOLUME 97 FL (80-99); PLATELET COUNT 138 K/UL (150-450); RED BLOOD COUNT 3.03 M/UL (4.70-6.10); RED CELL DISTRIBUTION WIDTH 14.9 % (11.6-14.8); WHITE BLOOD COUNT 12.9 K/UL (4.8-10.8)
[2017-11-11 07:47] LABS: ANION GAP 5 mmol/L (5-15); BLOOD UREA NITROGEN 37 mg/dL (7-18); CALCIUM 8.9 MG/DL (8.5-10.1); CARBON DIOXIDE 29 MMOL/L (21-32); CHLORIDE 106 MMOL/L (98-107); CREATININE 2.3 MG/DL (0.55-1.30); SODIUM 140 MMOL/L (136-145)
[2017-11-11] MEDS: Enoxaparin 40mg Inj SUBQ SCH (09:00)
[2017-11-11] MEDS: Losartan 50mg tab ORAL SCH (09:00)
[2017-11-11] MEDS: Spironolactone 25mg tab ORAL SCH (09:00)
[2017-11-11] MEDS: Aspirin EC 81mg tab ORAL SCH (09:37)
[2017-11-11] MEDS: Metoprolol Succinate XL 50mg tab ORAL SCH (09:38)
[2017-11-11] MEDS: Sennosides 8.6mg ORAL SCH (09:38)
[2017-11-11] MEDS: dilTIAZem HCl CD 240mg cap ORAL SCH (09:44)
[2017-11-11] MEDS: Docusate 100mg cap ORAL SCH ×2 (09:44→20:41)
--- NOTE | 2017-11-11 12:23 | Diagnostic Imaging Report ---
Indication: Dyspnea Comparison: 11/05/2013 A single view chest radiograph was obtained. Findings: Vascular congestion is suspected with cardiomegaly. Right pleural effusion is suspected. Findings appear unchanged. The current study is limited by motion. Pacemaker again noted. IMPRESSION: Limited study. Evidence of CHF
--- NOTE | 2017-11-11 14:12 | General Progress Note ---
Assessment/Plan Problem List: (1) Gait abnormality ICD Codes: R26.9 - Unspecified abnormalities of gait and mobility SNOMED: 91710156 (2) Pleural effusion ICD Codes: J90 - Pleural effusion, not elsewhere classified SNOMED: 47692778 (3) CHF (congestive heart failure), NYHA class IV ICD Codes: I50.9 - Heart failure, unspecified SNOMED: 313165473, 943507692 (4) Spinal stenosis ICD Codes: M48.00 - Spinal stenosis, site unspecified SNOMED: 64219819 Qualifiers: Qualified Codes: M48.061 - Spinal stenosis, lumbar region without neurogenic claudication (5) 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 ICD Codes: M51.26 - Other intervertebral disc displacement, lumbar region SNOMED: 82814562 (6) 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 ICD Codes: I69.922 - 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 SNOMED: 811249262 (7) COPD (chronic obstructive pulmonary disease) ICD Codes: J44.9 - Chronic obstructive pulmonary disease, unspecified SNOMED: 48310709 (8) Hyperkalemia ICD Codes: E87.5 - Hyperkalemia SNOMED: 23295761 (9) HELLEN (acute kidney injury) ICD Codes: N17.9 - Acute kidney failure, unspecified SNOMED: 10278320 (10) COPD exacerbation ICD Codes: J44.1 - Chronic obstructive pulmonary disease with (acute) exacerbation SNOMED: 753615505 Assessment/Plan high K dc K retaining meds, lasix, iv fluids as overdiuresis and hellen, steroids as asthma exacerbation, continue rx for back pain Subjective Constitutional: Reports: weakness HEENT: Reports: no symptoms Cardiovascular: Reports: no symptoms Respiratory: Reports: cough, shortness of breath Gastrointestinal/Abdominal: Reports: no symptoms Genitourinary: Reports: other - slow streeam Neurologic/Psychiatric: Reports: pre-existing deficit Endocrine: Reports: no symptoms Hematologic/Lymphatic: Reports: anemia Allergies: Coded Allergies: VINCENT INHIBITORS (Verified Allergy, Mild, 08/06/17) SHELLFISH (Verified Allergy, Unknown, 07/01/11) Subjective worse cough, mod back pain Objective Last 24 Hour Vital Signs Date Time Temp Pulse Resp B/P (MAP) Pulse Ox O2 Delivery O2 Flow Rate FiO2 11/11/17 13:20 98.2 11/11/17 12:00 98.2 60 18 133/67 98 98.2 11/11/17 10:56 64 22 98 Nasal Cannula 28 11/11/17 10:54 28 11/11/17 10:46 62 22 97 Nasal Cannula 28 11/11/17 10:36 98.0 11/11/17 10:36 98.0 11/11/17 09:44 61 104/56 11/11/17 09:39 98.0 11/11/17 09:38 61 104/56 11/11/17 09:37 98.0 11/11/17 08:00 98.0 61 18 104/56 92 98.0 11/11/17 06:59 Nasal Cannula 2.0 28 11/11/17 06:59 95 Nasal Cannula 2.0 28 11/11/17 06:59 28 11/11/17 06:59 64 22 98 Nasal Cannula 28 11/11/17 06:59 62 22 97 Nasal Cannula 28 11/11/17 05:00 96.1 11/11/17 04:00 96.6 66 18 116/63 97 Room Air 96.6 11/11/17 03:28 61 18 99 Nasal Cannula 2.0 28 11/11/17 03:21 60 22 96 Nasal Cannula 2.0 28 11/11/17 01:00 96.1 11/11/17 00:00 96.1 61 21 110/61 100 Nasal Cannula 96.1 11/10/17 23:17 63 18 99 Nasal Cannula 2.0 28 11/10/17 23:05 60 20 97 Nasal Cannula 2.0 28 11/10/17 21:00 96.6 11/10/17 20:00 96.6 64 19 107/62 90 Nasal Cannula 96.6 11/10/17 19:29 67 18 99 Nasal Cannula 2.0 28 11/10/17 19:24 81 22 94 Nasal Cannula 2.0 28 11/10/17 19:00 95 Nasal Cannula 2.0 28 11/10/17 19:00 Nasal Cannula 2.0 28 11/10/17 17:27 96.1 11/10/17 17:26 96.1 11/10/17 16:00 96.1 64 20 105/58 99 96.1 11/10/17 15:19 64 20 100 Nasal Cannula 2.0 28 11/10/17 15:07 63 18 97 Room Air Intake and Output 11/10/17 11/11/17 19:00 07:00 Intake Total 600 ml Balance 600 ml Intake Oral 600 ml # Voids 5 2 # Bowel Movements 2 Laboratory Tests 11/11/17 05:30: White Blood Count 12.9H, Red Blood Count 3.03L, Hemoglobin 9.1L, Hematocrit 29.2L, Mean Corpuscular Volume 97, Mean Corpuscular Hemoglobin 30.1, Mean Corpuscular Hemoglobin Concent 31.2L, Red Cell Distribution Width 14.9H, Platelet Count 138L, Mean Platelet Volume 8.8, Neutrophils (%) (Auto) , Lymphocytes (%) (Auto) , Monocytes (%) (Auto) , Eosinophils (%) (Auto) , Basophils (%) (Auto) , Differential Total Cells Counted 100, Neutrophils % ( Manual) 91H, Lymphocytes % (Manual) 3L, Monocytes % (Manual) 6, Eosinophils % ( Manual) 0, Basophils % (Manual) 0, Band Neutrophils 0, Platelet Estimate DecreasedL, Platelet Morphology Normal, Hypochromasia 2+, Anisocytosis 1+, Sodium Level 140, Potassium Level 7.0*H, Chloride Level 106, Carbon Dioxide Level 29, Anion Gap 5, Blood Urea Nitrogen 37H, Creatinine 2.3H, Estimat Glomerular Filtration Rate , Glucose Level 133H, Calcium Level 8.9 Height (Feet): 5 Height (Inches): 8.00 Weight (Pounds): 130 General Appearance: moderate distress EENT: normal ENT inspection Neck: normal alignment Cardiovascular: regular rhythm Respiratory/Chest: rhonchi - bilaterally, expiratory wheezing Abdomen: distended Edema: no edema noted Arm (L), no edema noted Arm (R), no edema noted Leg (L), no edema noted Leg (R), no edema noted Pedal (L), no edema noted Pedal (R), no edema noted Generalized Neurologic: coffee weigher II-XII grossly normal Objective back pain mod with walk HODAN GAYTAN Nov 11, 2017 14:12
[2017-11-11] MEDS: Solu-MEDROL 40mg Inj IVP SCH ×2 (14:53→20:41)
--- NOTE | 2017-11-11 17:18 | Consultation ---
Consult Note Assessment/Plan Assessment/Plan PULMONARY CONSULTATION Nov 11, 2017 CONSULTING PHYSICIAN: Erin Hammer M.D. REFERRING PHYSICIAN: Martinez Rubalcava M.D. CHIEF COMPLAINT: The patient is seen because of shortness of breath and wheezing. HISTORY OF PRESENT ILLNESS: The patient has a history of COPD and CHF. He was admitted with increasing symptoms of shortness of breath and cough with wheezing. Dr. Rubalcava has asked me to see him for additional recommendations regarding R pleural effusion and if thoracentesis is advised. PAST MEDICAL HISTORY: Includes COPD, systolic and diastolic CHF, pulm HTN, pacemaker, atrial fibrillation, past stroke with dysarthria, aphasia and prostate cancer. ALLERGIES: VINCENT inhibitors and shellfish. REVIEW OF SYSTEMS: Cannot be obtained. MEDICATIONS: Reviewed. PHYSICAL EXAMINATION: GENERAL: The patient is alert and responsive but he is aphasic and dysarthric. He cannot make his needs known. He is somewhat dyspneic. VITAL SIGNS: Stable. He is chronically ill and malnourished. HEENT: The head is normocephalic. NECK: Has jugular vein distention. A pacemaker is in the right upper chest. LUNGS: Have mild wheezing with dullness and decreased BS R base. CARDIAC: Rhythm is regular. ABDOMEN: Soft, but mildly distended. Liver and spleen are not felt. EXTREMITIES: Have no clubbing or cyanosis. There is 1+ edema and chronic stasis changes. PLAN: The CXR shows interstitial edema and a R effusion. The WBC is normal. The patient will continue on congestive heart failure regimen Respiratory treatments and steroids will be continued. Thoracentesis was ordered. Thank you for asking me to see in consultation. Erin Hammer M.D. ERIN HAMMER Nov 11, 2017 17:18
[2017-11-11] MEDS: Tamsulosin 0.4mg cap ORAL SCH (20:41)
[2017-11-12] VITALS: BP 106/43
[2017-11-12] MEDS: HYDROcodone/Acetamin 7.5/325 tab ORAL SCH ×6 (01:00→21:00)
[2017-11-12] MEDS: Albuterol/Ipratropium 3ml neb HHN SCH ×6 (02:45→19:57)
[2017-11-12 04:00] VITALS: BP 150/55
[2017-11-12 06:46] LABS: HEMATOCRIT 31.2 % (42.0-52.0); HEMOGLOBIN 9.4 G/DL (14.2-18.0); MEAN CORPUSCULAR VOLUME 98 FL (80-99); PLATELET COUNT 136 K/UL (150-450)
[2017-11-12 07:41] LABS: ANION GAP 12 mmol/L (5-15); BLOOD UREA NITROGEN 46 mg/dL (7-18); CALCIUM 8.5 MG/DL (8.5-10.1); CARBON DIOXIDE 23 MMOL/L (21-32); CHLORIDE 102 MMOL/L (98-107); CREATINE KINASE 334 U/L (26-308); CREATININE 3.6 MG/DL (0.55-1.30); SODIUM 138 MMOL/L (136-145)
[2017-11-12 07:43] LABS: POTASSIUM 6.6 MMOL/L (3.5-5.1)
[2017-11-12] MEDS: Aspirin EC 81mg tab ORAL SCH (08:25)
[2017-11-12] MEDS: Sennosides 8.6mg ORAL SCH (08:29)
[2017-11-12 08:30] VITALS: BP 99/66
[2017-11-12] MEDS: Docusate 100mg cap ORAL SCH ×2 (08:30→21:00)
[2017-11-12] MEDS: dilTIAZem HCl CD 240mg cap ORAL SCH (08:30)
[2017-11-12] MEDS: Metoprolol Succinate XL 50mg tab ORAL SCH (08:30)
[2017-11-12] MEDS: Enoxaparin 40mg Inj SUBQ SCH (08:32)
[2017-11-12] MEDS: Solu-MEDROL 40mg Inj IVP SCH ×2 (08:33→21:22)
[2017-11-12 09:58] LABS: INR 1.4 (0.9-1.1)
--- NOTE | 2017-11-12 12:48 | General Progress Note ---
Assessment/Plan Problem List: (1) Gait abnormality ICD Codes: R26.9 - Unspecified abnormalities of gait and mobility SNOMED: 60992755 (2) Pleural effusion ICD Codes: J90 - Pleural effusion, not elsewhere classified SNOMED: 57435294 (3) CHF (congestive heart failure), NYHA class IV ICD Codes: I50.9 - Heart failure, unspecified SNOMED: 029196236, 641550202 (4) Spinal stenosis ICD Codes: M48.00 - Spinal stenosis, site unspecified SNOMED: 38175524 Qualifiers: Qualified Codes: M48.061 - Spinal stenosis, lumbar region without neurogenic claudication (5) 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 ICD Codes: M51.26 - Other intervertebral disc displacement, lumbar region SNOMED: 73375117 (6) 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 ICD Codes: I69.922 - 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 SNOMED: 458989436 (7) COPD (chronic obstructive pulmonary disease) ICD Codes: J44.9 - Chronic obstructive pulmonary disease, unspecified SNOMED: 37684462 (8) Hyperkalemia ICD Codes: E87.5 - Hyperkalemia SNOMED: 69303320 (9) HELLEN (acute kidney injury) ICD Codes: N17.9 - Acute kidney failure, unspecified SNOMED: 63760973 (10) COPD exacerbation ICD Codes: J44.1 - Chronic obstructive pulmonary disease with (acute) exacerbation SNOMED: 177617428 Assessment/Plan high K dc K retaining meds, lasix dc 11/12 , iv fluids as overdiuresis and hellen, steroids as asthma exacerbation, continue rx for back pain Subjective Constitutional: Reports: weakness HEENT: Reports: no symptoms Cardiovascular: Reports: no symptoms Respiratory: Reports: cough, shortness of breath, wheezing Gastrointestinal/Abdominal: Reports: poor appetite Genitourinary: Reports: other - slow stream Neurologic/Psychiatric: Reports: pre-existing deficit Endocrine: Reports: no symptoms Hematologic/Lymphatic: Reports: anemia Allergies: Coded Allergies: VINCENT INHIBITORS (Verified Allergy, Mild, 08/06/17) SHELLFISH (Verified Allergy, Unknown, 07/01/11) Subjective worse cough, mod back pain Objective Last 24 Hour Vital Signs Date Time Temp Pulse Resp B/P (MAP) Pulse Ox O2 Delivery O2 Flow Rate FiO2 11/12/17 10:44 Nasal Cannula 11/12/17 10:44 Nasal Cannula 11/12/17 09:26 96.8 11/12/17 09:26 96.8 11/12/17 08:32 96.8 11/12/17 08:30 98.0 69 22 99/66 95 98.0 11/12/17 08:30 62 150/55 11/12/17 08:30 62 150/55 11/12/17 08:27 96.8 11/12/17 07:37 Nasal Cannula 2.0 28 11/12/17 07:36 Nasal Cannula 2.0 28 11/12/17 07:36 Nasal Cannula 2.0 28 11/12/17 07:35 Nasal Cannula 2.0 28 11/12/17 05:40 96.8 11/12/17 04:00 96.8 62 18 150/55 100 96.8 11/12/17 03:10 60 18 99 Nasal Cannula 28 11/12/17 03:01 60 18 100 Nasal Cannula 2.0 28 11/12/17 03:01 28 11/12/17 01:00 95.9 11/12/17 00:00 95.9 60 18 106/43 100 Room Air 95.9 11/11/17 23:29 62 18 100 Nasal Cannula 28 11/11/17 23:22 36 11/11/17 23:22 60 20 97 Nasal Cannula 2.0 28 11/11/17 20:42 96.3 11/11/17 20:00 96.3 67 19 93/51 97 Nasal Cannula 96.3 11/11/17 19:17 64 20 100 Nasal Cannula 28 11/11/17 19:05 36 11/11/17 19:05 61 18 100 Nasal Cannula 2.0 28 11/11/17 19:00 100 Nasal Cannula 2.0 28 11/11/17 19:00 Nasal Cannula 2.0 28 11/11/17 17:44 98.1 11/11/17 17:00 98.1 11/11/17 17:00 100/60 11/11/17 16:00 98.1 61 18 91/52 100 98.1 11/11/17 15:42 60 22 100 Nasal Cannula 28 11/11/17 15:42 28 11/11/17 15:31 60 22 97 Nasal Cannula 28 11/11/17 14:49 98.2 11/11/17 13:20 98.2 Intake and Output 11/11/17 11/12/17 19:00 07:00 Intake Total 675 ml 500 ml Output Total 291 ml 300 ml Balance 384 ml 200 ml Intake Oral 175 ml IV Total 500 ml 500 ml Output Urine Total 300 ml Post Void Residual 291 ml Bladder Scan Volume Amount 76-100 ml 151-200 ml Laboratory Tests 11/12/17 05:15: White Blood Count 10.0, Red Blood Count 3.20L, Hemoglobin 9.4L, Hematocrit 31.2L , Mean Corpuscular Volume 98, Mean Corpuscular Hemoglobin 29.5, Mean Corpuscular Hemoglobin Concent 30.2L, Red Cell Distribution Width 15.0H, Platelet Count 136L, Mean Platelet Volume 7.7, Neutrophils (%) (Auto) , Lymphocytes (%) (Auto) , Monocytes (%) (Auto) , Eosinophils (%) (Auto) , Basophils (%) (Auto) , Differential Total Cells Counted 100, Neutrophils % ( Manual) 95H, Lymphocytes % (Manual) 2L, Monocytes % (Manual) 3, Eosinophils % ( Manual) 0, Basophils % (Manual) 0, Band Neutrophils 0, Platelet Estimate DecreasedL, Platelet Morphology Normal, Hypochromasia 2+, Anisocytosis 1+, Sodium Level 138, Potassium Level 6.6*H, Chloride Level 102, Carbon Dioxide Level 23, Anion Gap 12, Blood Urea Nitrogen 46H, Creatinine 3.6#H, Estimat Glomerular Filtration Rate , Glucose Level 110H, Uric Acid 6.2, Calcium Level 8.5, Total Creatine Kinase 334H, Prostate Specific Antigen 16.79H 11/12/17 09:15: Prothrombin Time 14.3H, Prothromb Time International Ratio 1.4H, Activated Partial Thromboplast Time 30 Height (Feet): 5 Height (Inches): 8.00 Weight (Pounds): 130 General Appearance: mild distress EENT: PERRL/EOMI Neck: normal alignment Cardiovascular: regular rhythm Respiratory/Chest: rhonchi - bilaterally Abdomen: soft, no organomegaly Edema: no edema noted Arm (L), no edema noted Arm (R), no edema noted Leg (L), no edema noted Leg (R), no edema noted Pedal (L), no edema noted Pedal (R), no edema noted Generalized Neurologic: other - dysarthric Objective back pain mod with walk HODAN GAYTAN Nov 12, 2017 12:48
[2017-11-12] MEDS: Sodium Polystyrene Sulfonate 15gm Powder ORAL ONE ×2 (13:00→13:22)
--- NOTE | 2017-11-12 14:01 | Diagnostic Imaging Report ---
Indication: Status post thoracentesis Comparison: 11/11/2017 A single view chest radiograph was obtained. Findings: No pneumothorax demonstrated. Persistent right pleural effusion noted. Cardiomegaly is stable. Pulmonary edema appears slightly improved since the previous day. IMPRESSION: No pneumothorax.
[2017-11-12 15:50] VITALS: BP 91/51
--- NOTE | 2017-11-12 15:59 | Pulmonology Progress Note ---
Assessment/Plan Assessment/Plan COPD, systolic and diastolic CHF, pulm HTN, pacemaker, atrial fibrillation, past stroke with dysarthria, aphasia prostate cancer. PLAN: The patient will continue on congestive heart failure regimen Respiratory treatments and steroids will be continued. Thoracentesis was ordered. Subjective Interval Events: appears comfortable. Mclean has cough Constitutional: Reports: no symptoms HEENT: Repors: no symptoms Respiratory: Reports: dry cough, shortness of breath Cardiovascular: Reports: no symptoms Allergies: Coded Allergies: VINCENT INHIBITORS (Verified Allergy, Mild, 08/06/17) SHELLFISH (Verified Allergy, Unknown, 07/01/11) Objective Last 24 Hour Vital Signs Date Time Temp Pulse Resp B/P (MAP) Pulse Ox O2 Delivery O2 Flow Rate FiO2 11/12/17 15:50 98.4 62 20 91/51 100 98.4 11/12/17 15:21 62 18 100 Nasal Cannula 2.0 11/12/17 15:12 60 18 98 Nasal Cannula 2.0 11/12/17 14:52 96.8 11/12/17 14:51 96.8 11/12/17 13:21 96.8 11/12/17 13:21 96.8 11/12/17 10:44 Nasal Cannula 11/12/17 10:44 Nasal Cannula 11/12/17 08:32 96.8 11/12/17 08:30 98.0 69 22 99/66 95 98.0 11/12/17 08:30 62 150/55 11/12/17 08:30 62 150/55 11/12/17 08:27 96.8 11/12/17 07:37 Nasal Cannula 2.0 11/12/17 07:36 Nasal Cannula 2.0 11/12/17 07:36 Nasal Cannula 2.0 11/12/17 07:35 Nasal Cannula 2.0 11/12/17 05:40 96.8 11/12/17 04:00 96.8 62 18 150/55 100 96.8 11/12/17 03:10 60 18 99 Nasal Cannula 28 11/12/17 03:01 60 18 100 Nasal Cannula 2.0 28 11/12/17 03:01 28 11/12/17 01:00 95.9 11/12/17 00:00 95.9 60 18 106/43 100 Room Air 95.9 11/11/17 23:29 62 18 100 Nasal Cannula 28 11/11/17 23:22 36 11/11/17 23:22 60 20 97 Nasal Cannula 2.0 28 11/11/17 20:42 96.3 11/11/17 20:00 96.3 67 19 93/51 97 Nasal Cannula 96.3 11/11/17 19:17 64 20 100 Nasal Cannula 28 11/11/17 19:05 36 11/11/17 19:05 61 18 100 Nasal Cannula 2.0 28 11/11/17 19:00 100 Nasal Cannula 2.0 28 11/11/17 19:00 Nasal Cannula 2.0 28 11/11/17 17:44 98.1 11/11/17 17:00 98.1 11/11/17 17:00 100/60 11/11/17 16:00 98.1 61 18 91/52 100 98.1 Intake and Output 11/11/17 11/12/17 19:00 07:00 Intake Total 675 ml 500 ml Output Total 291 ml 300 ml Balance 384 ml 200 ml Intake Oral 175 ml IV Total 500 ml 500 ml Output Urine Total 300 ml Post Void Residual 291 ml Bladder Scan Volume Amount 76-100 ml 151-200 ml General Appearance: no acute distress HEENT: normocephalic Respiratory/Chest: chest wall non-tender, decreased breath sounds Cardiovascular: normal peripheral pulses Abdomen: normal bowel sounds Microbiology Date/Time Source Procedure Growth Status 11/10/17 02:03 Nasal Nares Influenza Types A,B Antigen (GIOVANNI) - Final Complete Laboratory Tests 11/12/17 05:15: White Blood Count 10.0, Red Blood Count 3.20L, Hemoglobin 9.4L, Hematocrit 31.2L , Mean Corpuscular Volume 98, Mean Corpuscular Hemoglobin 29.5, Mean Corpuscular Hemoglobin Concent 30.2L, Red Cell Distribution Width 15.0H, Platelet Count 136L, Mean Platelet Volume 7.7, Neutrophils (%) (Auto) , Lymphocytes (%) (Auto) , Monocytes (%) (Auto) , Eosinophils (%) (Auto) , Basophils (%) (Auto) , Differential Total Cells Counted 100, Neutrophils % ( Manual) 95H, Lymphocytes % (Manual) 2L, Monocytes % (Manual) 3, Eosinophils % ( Manual) 0, Basophils % (Manual) 0, Band Neutrophils 0, Platelet Estimate DecreasedL, Platelet Morphology Normal, Hypochromasia 2+, Anisocytosis 1+, Sodium Level 138, Potassium Level 6.6*H, Chloride Level 102, Carbon Dioxide Level 23, Anion Gap 12, Blood Urea Nitrogen 46H, Creatinine 3.6#H, Estimat Glomerular Filtration Rate , Glucose Level 110H, Uric Acid 6.2, Calcium Level 8.5, Total Creatine Kinase 334H, Prostate Specific Antigen 16.79H 11/12/17 09:15: Prothrombin Time 14.3H, Prothromb Time International Ratio 1.4H, Activated Partial Thromboplast Time 30 11/12/17 11:02: Body Fluid Source [Pending], Body Fluid Volume [Pending], Body Fluid Appearance Hazy, Body Fluid RBC 4575, Body Fluid Total Nucleated Cells 100, Body Fluid Polynuclear WBCs (%) 43, Body Fluid Mononuclear WBCs (%) 54, Body Fluid Mesothelial Cells (%) 3, Body Fluid Glucose [Pending], Body Fluid Total Protein [Pending], Body Fluid Lactate Dehydrogenase [Pending], Body Fluid Comment N/a Current Medications Medications (Trade) Dose Ordered Sig/Scot Route PRN Reason Start Time Stop Time Status Last Admin Dose Admin Acetaminophen/ Hydrocodone Bitart ([place] 7.5/325) 1 tab Q4HR ORAL 11/09/17 21:00 11/16/17 20:59 11/12/17 13:21 Albuterol/ Ipratropium (Albuterol/ Ipratropium) 3 ml Q4HRT HHN 11/09/17 15:00 11/14/17 14:59 11/12/17 15:11 Aspirin (Ecotrin) 81 mg DAILY ORAL 11/10/17 09:00 12/10/17 08:59 11/12/17 08:25 Dextrose (Dextrose 50%) STAT PRN IV Hypoglycemia 11/09/17 14:30 12/09/17 14:29 Diltiazem HCl (Cardizem CD) 240 mg DAILY ORAL 11/10/17 09:00 12/10/17 08:59 11/12/17 08:30 Docusate Sodium (Colace) 100 mg EVERY 12 HOURS ORAL 11/09/17 21:00 12/09/17 20:59 11/12/17 08:30 Enoxaparin Sodium (Lovenox) 40 mg DAILY SUBQ 11/09/17 18:30 12/09/17 18:29 Finasteride (Proscar) 5 mg DAILY ORAL 11/10/17 09:00 12/10/17 08:59 11/12/17 08:30 Lidocaine (Lidoderm 5% PATCH) 1 patch DAILY TDERMAL 11/10/17 09:00 12/10/17 08:59 11/11/17 10:43 Methylprednisolone Sodium Succinate (Solu-MEDROL) 40 mg EVERY 12 HOURS IVP 11/11/17 14:15 12/11/17 14:14 11/12/17 08:33 Metoprolol Succinate (Toprol XL) 50 mg DAILY ORAL 11/10/17 09:00 12/10/17 08:59 11/12/17 08:30 Nitroglycerin (Ntg) 0.4 mg Q5M X 3 DOSES PRN SL Prn Chest Pain 11/09/17 14:30 12/09/17 14:29 Pantoprazole (Protonix) 40 mg DAILY ORAL 11/10/17 09:00 12/10/17 08:59 11/12/17 08:31 Polyethylene Glycol (Miralax) 17 gm HSPRN PRN ORAL Constipation 11/09/17 14:30 12/09/17 14:29 Sennosides (Senokot) 2 tab DAILY ORAL 11/09/17 14:30 12/09/17 14:29 11/12/17 08:29 Sodium Chloride 1,000 ml @ 125 mls/hr Q8H IV 11/12/17 13:00 12/12/17 12:59 11/12/17 13:22 Tamsulosin HCl (Flomax) 0.8 mg BEDTIME ORAL 11/09/17 21:00 12/09/17 20:59 11/11/17 20:41 Tizanidine HCl (Zanaflex) 2 mg THREE TIMES A DAY ORAL 11/09/17 20:00 12/09/17 19:59 11/12/17 13:21 Davy Smith MD Nov 12, 2017 15:58
--- NOTE | 2017-11-12 16:06 | Diagnostic Imaging Report ---
Indications: Pleural effusion. Diagnostic right thoracentesis was requested. Technique: Ultrasound used to localize optimal puncture site. Sterile prepping and draping of the right lower chest performed. Local anesthesia with 1% lidocaine. Dermatotomy made. Puncture of the pleural space using thoracentesis needle. Stylet removed. Catheter placed to vacuum bottle suction. Fluid was aspirated under direct sonographic guidance. Patient tolerated procedure well, without immediate complication. Findings: Intraprocedural ultrasound showed complex cystic collection within the right pleural space. Most of the pleural space accumulation appears solid with only a minor fluid component. The minor fluid component was targeted for aspiration. Image guided aspiration yielded about 50 cc of brownish, [employer] color fluid. Followup chest x-ray is pending. Impression: Successful ultrasound-guided diagnostic right thoracentesis, yielding 50 cc of fluid
[2017-11-12] MEDS ORDERED: Sodium Polystyrene Sulfonate Enema RECTAL ONE (18:00)
[2017-11-12] MEDS: Piperacillin/Tazobactam 3.375 GM in NS 110 ML IVPB SCH (18:39)
[2017-11-12 20:00] VITALS: BP 100/59
[2017-11-12] MEDS: Tamsulosin 0.4mg cap ORAL SCH (21:22)
[2017-11-13] VITALS: BP 114/54
[2017-11-13] MEDS: Albuterol/Ipratropium 3ml neb HHN SCH ×6 (00:33→20:22)
[2017-11-13] MEDS: HYDROcodone/Acetamin 7.5/325 tab ORAL SCH ×6 (00:42→23:16)
[2017-11-13 04:00] VITALS: BP 91/57
[2017-11-13 07:43] LABS: ANION GAP 10 mmol/L (5-15); BLOOD UREA NITROGEN 68 mg/dL (7-18); CALCIUM 8.1 MG/DL (8.5-10.1); CARBON DIOXIDE 24 MMOL/L (21-32); CHLORIDE 102 MMOL/L (98-107); CREATININE 4.5 MG/DL (0.55-1.30); SODIUM 135 MMOL/L (136-145)
[2017-11-13 07:44] LABS: POTASSIUM 7.1 MMOL/L (3.5-5.1)
[2017-11-13 08:00] VITALS: BP 112/57
--- NOTE | 2017-11-13 08:53 | Pulmonology Progress Note ---
Assessment/Plan Assessment/Plan COPD, systolic and diastolic CHF, pulm HTN, pacemaker, atrial fibrillation, past stroke with dysarthria, aphasia prostate cancer. Hyperkalemia PLAN: The patient will continue on congestive heart failure regimen Respiratory treatments and steroids will be continued. Thoracentesis was performed yesterday; 50 ml fluid removed. Subjective Interval Events: No new events; hyperkalemic today Constitutional: Reports: no symptoms HEENT: Repors: no symptoms Respiratory: Reports: no symptoms Cardiovascular: Reports: no symptoms Gastrointestinal/Abdominal: Reports: no symptoms Genitourinary: Reports: no symptoms Allergies: Coded Allergies: VINCENT INHIBITORS (Verified Allergy, Mild, 08/06/17) SHELLFISH (Verified Allergy, Unknown, 07/01/11) Objective Last 24 Hour Vital Signs Date Time Temp Pulse Resp B/P (MAP) Pulse Ox O2 Delivery O2 Flow Rate FiO2 11/13/17 07:25 69 18 98 Nasal Cannula 2.0 28 11/13/17 07:17 65 18 95 Nasal Cannula 2.0 11/13/17 07:17 95 Nasal Cannula 2.0 11/13/17 07:17 Nasal Cannula 2.0 11/13/17 04:00 97.4 60 18 91/57 95 97.4 11/13/17 03:44 62 18 94 Nasal Cannula 2.0 11/13/17 00:42 65 18 99 Nasal Cannula 28 11/13/17 00:33 63 18 99 Nasal Cannula 2.0 28 11/13/17 00:00 97.4 55 19 114/54 99 97.4 11/12/17 21:00 97.8 11/12/17 20:36 61 18 100 Nasal Cannula 2.0 11/12/17 20:00 97.8 60 20 100/59 98 97.8 11/12/17 20:00 97.8 60 20 100/59 98 Nasal Cannula 2.0 97.8 11/12/17 19:57 61 18 100 Nasal Cannula 2.0 11/12/17 19:57 Nasal Cannula 2.0 28 11/12/17 19:57 93 Nasal Cannula 2.0 28 11/12/17 17:56 98.4 11/12/17 17:00 98.4 11/12/17 15:50 98.4 62 20 91/51 100 98.4 11/12/17 15:21 62 18 100 Nasal Cannula 2.0 28 11/12/17 15:12 60 18 98 Nasal Cannula 2.0 28 11/12/17 14:52 96.8 11/12/17 14:51 96.8 11/12/17 13:21 96.8 11/12/17 13:21 96.8 11/12/17 10:44 Nasal Cannula 11/12/17 10:44 Nasal Cannula Intake and Output 11/12/17 11/13/17 19:00 07:00 Intake Total 1345 ml 1610.0 ml Output Total 265 ml 2 ml Balance 1080 ml 1608.0 ml Intake Oral 120 ml IV Total 1225 ml 1610.0 ml Output Urine Total 2 ml Post Void Residual 265 ml Bladder Scan Volume Amount 151-200 ml 51-75 ml General Appearance: no acute distress HEENT: normocephalic Respiratory/Chest: chest wall non-tender, lungs clear Cardiovascular: normal peripheral pulses, normal rate Abdomen: normal bowel sounds Microbiology Date/Time Source Procedure Growth Status 11/12/17 11:02 Body Fluid Pleura, Rt Lung Gram Stain Pending Resulted 11/12/17 11:02 Body Fluid Pleura, Rt Lung Body Fluid Culture - Preliminary Resulted Laboratory Tests 11/12/17 09:15: Prothrombin Time 14.3H, Prothromb Time International Ratio 1.4H, Activated Partial Thromboplast Time 30 11/12/17 11:02: Body Fluid Source [Pending], Body Fluid Volume [Pending], Body Fluid Appearance Hazy, Body Fluid RBC 4575, Body Fluid Total Nucleated Cells 100, Body Fluid Polynuclear WBCs (%) 43, Body Fluid Mononuclear WBCs (%) 54, Body Fluid Mesothelial Cells (%) 3, Body Fluid Glucose [Pending], Body Fluid Total Protein [Pending], Body Fluid Lactate Dehydrogenase [Pending], Body Fluid Comment N/a 11/13/17 05:45: Sodium Level 135L, Potassium Level 7.1*H, Chloride Level 102, Carbon Dioxide Level 24, Anion Gap 10, Blood Urea Nitrogen 68H, Creatinine 4.5H, Estimat Glomerular Filtration Rate , Glucose Level 109H, Calcium Level 8.1L Current Medications Medications (Trade) Dose Ordered Sig/Scot Route PRN Reason Start Time Stop Time Status Last Admin Dose Admin Acetaminophen/ Hydrocodone Bitart ([place] 7.5/325) 1 tab Q4HR ORAL 11/09/17 21:00 11/16/17 20:59 11/12/17 13:21 Albuterol/ Ipratropium (Albuterol/ Ipratropium) 3 ml Q4HRT HHN 11/09/17 15:00 11/14/17 14:59 11/13/17 07:16 Aspirin (Ecotrin) 81 mg DAILY ORAL 11/10/17 09:00 12/10/17 08:59 11/12/17 08:25 Dextrose (Dextrose 50%) STAT PRN IV Hypoglycemia 11/09/17 14:30 12/09/17 14:29 Diltiazem HCl (Cardizem CD) 240 mg DAILY ORAL 11/10/17 09:00 12/10/17 08:59 11/12/17 08:30 Docusate Sodium (Colace) 100 mg EVERY 12 HOURS ORAL 11/09/17 21:00 12/09/17 20:59 11/12/17 08:30 Enoxaparin Sodium (Lovenox) 40 mg DAILY SUBQ 11/09/17 18:30 12/09/17 18:29 Finasteride (Proscar) 5 mg DAILY ORAL 11/10/17 09:00 12/10/17 08:59 11/12/17 08:30 Lidocaine (Lidoderm 5% PATCH) 1 patch DAILY TDERMAL 11/10/17 09:00 12/10/17 08:59 11/11/17 10:43 Methylprednisolone Sodium Succinate (Solu-MEDROL) 40 mg EVERY 12 HOURS IVP 11/11/17 14:15 12/11/17 14:14 11/12/17 21:22 Metoprolol Succinate (Toprol XL) 50 mg DAILY ORAL 11/10/17 09:00 12/10/17 08:59 11/12/17 08:30 Nitroglycerin (Ntg) 0.4 mg Q5M X 3 DOSES PRN SL Prn Chest Pain 11/09/17 14:30 12/09/17 14:29 Pantoprazole (Protonix) 40 mg DAILY ORAL 11/10/17 09:00 12/10/17 08:59 11/12/17 08:31 Piperacillin Sod/ Tazobactam Sod 3.375 gm/Sodium Chloride 110 ml @ 27.5 mls/hr Q12HR IVPB 11/12/17 18:00 11/19/17 17:59 11/12/17 18:39 Polyethylene Glycol (Miralax) 17 gm HSPRN PRN ORAL Constipation 11/09/17 14:30 12/09/17 14:29 Sennosides (Senokot) 2 tab DAILY ORAL 11/09/17 14:30 12/09/17 14:29 11/12/17 08:29 Sodium Chloride 1,000 ml @ 125 mls/hr Q8H IV 11/12/17 13:00 12/12/17 12:59 11/13/17 05:24 Tamsulosin HCl (Flomax) 0.8 mg BEDTIME ORAL 11/09/17 21:00 12/09/17 20:59 11/12/17 21:22 Tizanidine HCl (Zanaflex) 2 mg THREE TIMES A DAY ORAL 11/09/17 20:00 12/09/17 19:59 11/12/17 13:21 Davy Smith MD Nov 13, 2017 08:53
[2017-11-13] MEDS: Metoprolol Succinate XL 50mg tab ORAL SCH (09:00)
[2017-11-13] MEDS: Aspirin EC 81mg tab ORAL SCH (09:00)
[2017-11-13] MEDS: Enoxaparin 40mg Inj SUBQ SCH (09:00)
[2017-11-13] MEDS: Docusate 100mg cap ORAL SCH ×2 (09:00→21:00)
[2017-11-13] MEDS: dilTIAZem HCl CD 240mg cap ORAL SCH (09:00)
[2017-11-13] MEDS: Solu-MEDROL 40mg Inj IVP SCH ×2 (10:10→21:30)
[2017-11-13] MEDS: Sennosides 8.6mg ORAL SCH (10:16)
[2017-11-13] MEDS: Piperacillin/Tazobactam 3.375 GM in NS 110 ML IVPB SCH ×2 (10:16→23:15)
[2017-11-13 10:36] LABS: APPEARANCE,URINE TURBID; BILIRUBIN, URINE NEGATIVE (NEGATIVE); GLUCOSE, URINE (UA) NEGATIVE (NEGATIVE); KETONES,URINE 1+ (NEGATIVE); LEUKOCYTE ESTERASE ,URINE 1+ (NEGATIVE); NITRITE,URINE NEGATIVE (NEGATIVE); PH,URINE 5 (4.5-8.0); PROTEIN,URINE 3+ (NEGATIVE); UROBILINOGEN,URINE NORMAL MG/DL (0.0-1.0)
[2017-11-13 10:38] LABS: COLOR,URINE YELLOW
[2017-11-13] MEDS ORDERED: Nitroglycerin Subl 0.4mg tab SL PRN (11:30)
[2017-11-13] MEDS ORDERED: Miralax 17gm pkt ORAL PRN (11:30)
[2017-11-13 12:00] VITALS: BP 120/61
[2017-11-13] MEDS ORDERED: Calcium Gluconate 1gm/10ml vial IVP ONE ×2 (12:00→14:00)
[2017-11-13] MEDS ORDERED: Sodium Polystyrene Sulfonate 15gm Powder ORAL ONE (12:07)
[2017-11-13] MEDS ORDERED: Calcium Gluconate 1gm in NS 110ml IVPB ONE ×2 (13:00→15:00)
[2017-11-13] MEDS: Sodium Bicarbonate 100 ML in D5W 1000ml 1,000 ML IV SCH ×2 (14:07→21:28)
--- NOTE | 2017-11-13 14:34 | Nephrology Progress Note ---
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 (7) COPD (chronic obstructive pulmonary disease) (8) Hyperkalemia (9) HELLEN (acute kidney injury) (10) COPD exacerbation (11) Urinary retention (12) Bladder outlet obstruction Plan bladder distendeed on us , replace ashford , hydrate, kayexalte, dysphagia, npo Subjective Constitutional: Reports: weakness HEENT: Reports: no symptoms Genitourinary: Reports: incontinence Neurologic/Psychiatric: Reports: pre-existing deficit Objective Objective Last 24 Hour Vital Signs Date Time Temp Pulse Resp B/P (MAP) Pulse Ox O2 Delivery O2 Flow Rate FiO2 11/13/17 14:18 60 20 98 Nasal Cannula 2.0 11/13/17 12:00 97.9 62 24 120/61 98 Nasal Cannula 2.0 97.9 11/13/17 11:27 66 18 100 Nasal Cannula 2.0 11/13/17 11:13 61 18 97 Nasal Cannula 2.0 11/13/17 10:10 98.8 11/13/17 08:00 98.8 61 23 112/57 97 98.8 11/13/17 07:25 69 18 98 Nasal Cannula 2.0 28 11/13/17 07:17 65 18 95 Nasal Cannula 2.0 11/13/17 07:17 95 Nasal Cannula 2.0 11/13/17 07:17 Nasal Cannula 2.0 11/13/17 04:00 97.4 60 18 91/57 95 97.4 11/13/17 03:44 62 18 94 Nasal Cannula 2.0 28 11/13/17 00:42 65 18 99 Nasal Cannula 28 11/13/17 00:33 63 18 99 Nasal Cannula 2.0 28 11/13/17 00:00 97.4 55 19 114/54 99 97.4 11/12/17 21:00 97.8 11/12/17 20:36 61 18 100 Nasal Cannula 2.0 28 11/12/17 20:00 97.8 60 20 100/59 98 97.8 11/12/17 20:00 97.8 60 20 100/59 98 Nasal Cannula 2.0 97.8 11/12/17 19:57 61 18 100 Nasal Cannula 2.0 11/12/17 19:57 Nasal Cannula 2.0 11/12/17 19:57 93 Nasal Cannula 2.0 28 11/12/17 17:56 98.4 11/12/17 17:00 98.4 11/12/17 15:50 98.4 62 20 91/51 100 98.4 11/12/17 15:21 62 18 100 Nasal Cannula 2.0 11/12/17 15:12 60 18 98 Nasal Cannula 2.0 28 11/12/17 14:52 96.8 11/12/17 14:51 96.8 Intake and Output 11/12/17 11/13/17 19:00 07:00 Intake Total 1345 ml 1610.0 ml Output Total 265 ml 2 ml Balance 1080 ml 1608.0 ml Intake Oral 120 ml IV Total 1225 ml 1610.0 ml Output Urine Total 2 ml Post Void Residual 265 ml Bladder Scan Volume Amount 151-200 ml 51-75 ml Laboratory Tests 11/13/17 05:45: Sodium Level 135L, Potassium Level 7.1*H, Chloride Level 102, Carbon Dioxide Level 24, Anion Gap 10, Blood Urea Nitrogen 68H, Creatinine 4.5H, Estimat Glomerular Filtration Rate , Glucose Level 109H, Calcium Level 8.1L 11/13/17 09:30: Urine Color Yellow, Urine Appearance Turbid, Urine pH 5, Urine Specific [place] 1.025, Urine Protein 3+H, Urine Glucose (UA) Negative, Urine Ketones 1+H, Urine Occult Blood 1+H, Urine Nitrite Negative, Urine Bilirubin Negative, Urine Urobilinogen Normal, Urine Leukocyte Esterase 1+H, Urine RBC 2-4H, Urine WBC 5- 10H, Urine Squamous Epithelial Cells Few, Urine Amorphous Sediment ModerateH, Urine Bacteria Few Height (Feet): 5 Height (Inches): 8.00 Weight (Pounds): 130 General Appearance: moderate distress EENT: other - edent Neck: normal alignment Cardiovascular: regular rhythm Respiratory/Chest: rhonchi - bilaterally Abdomen: soft Extremities: other - no edema 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
--- NOTE | 2017-11-13 15:49 | Diagnostic Imaging Report ---
Indication: Post nasogastric tube placement Technique: Supine view of the abdomen Comparison: November 09, 2017 Findings: Interim placement of a nasogastric tube, tip which projects at the level of the gastric fundus, proximal port beyond the gastroesophageal junction. Unremarkable bowel gas pattern. Large right pleural effusion, pacemaker wires again demonstrated Impression: Satisfactory nasogastric intubation Other stable findings as described
--- NOTE | 2017-11-13 15:53 | Diagnostic Imaging Report ---
Indication: Abnormal renal function tests Technique: Grayscale and duplex images of the kidneys, retroperitoneum, and bladder Comparison: Reference made to abdomen and pelvis CT 11/09/2017 Findings: Right kidney measures 10.8 cm in length. The left kidney measures 11.2 cm in length. Both kidneys demonstrate slightly increased echogenicity. No focal abnormality. Structures in the anterior aspect of the bladder are demonstrated on recent CT scan to represent small bowel loops. The bladder is otherwise unremarkable. Impression: Negative for hydronephrosis Equivocally mildly increased renal echogenicity, if real could indicate medical renal disease
[2017-11-13 16:00] VITALS: BP 131/69
[2017-11-13] MEDS ORDERED: Tubing IV Secondary IV ONE (17:42)
[2017-11-13] MEDS: dilTIAZem HCl 60mg tab ORAL SCH (18:24)
[2017-11-13 20:00] VITALS: BP 137/71
[2017-11-13] MEDS: Tamsulosin 0.4mg cap ORAL SCH (21:28)
[2017-11-13] MEDS: Sodium Polystyrene Sulfonate 15gm Powder ORAL ONE ×2 (21:29→22:00)
[2017-11-14] VITALS: BP 132/84
[2017-11-14] MEDS: HYDROcodone/Acetamin 7.5/325 tab ORAL SCH ×6 (02:30→21:35)
[2017-11-14] MEDS: Albuterol/Ipratropium 3ml neb HHN SCH ×5 (03:45→23:24)
[2017-11-14 04:00] VITALS: BP 145/74
[2017-11-14] MEDS: Sodium Bicarbonate 100 ML in D5W 1000ml 1,000 ML IV SCH (04:57)
--- NOTE | 2017-11-14 05:17 | Consultation ---
DATE OF CONSULTATION: 11/13/2017 CONSULTING PHYSICIAN: Matt Calvert M.D. REFERRING PHYSICIAN: Martinez Rubalcava M.D. REASON FOR CONSULTATION: Evaluation for difficulty catheterization. HISTORY OF PRESENT ILLNESS: This is a 72-year-old gentleman, who was originally admitted to the hospital because of severe back pain. He has been noted to have worsening acute kidney injury. Apparently, Reyes catheter was indwelling, but it was not draining much. It was removed and then apparently there was some difficulty reinserting it and Urology evaluation was requested. The patient apparently has history of BPH. Most of the rest of the history was obtained from the chart. Past prostate surgeries are unknown. PAST MEDICAL HISTORY: Significant for history of COPD, CHF, history of GI bleed, chronic back pain. PAST SURGICAL HISTORY: Unknown. CURRENT MEDICATIONS: Here in the hospital, the patient is on aspirin, Proscar, lidocaine, Toprol, Protonix, Senokot, Lovenox, Zosyn, Colace, Solu-Medrol, Flomax, Cardizem, and sodium bicarbonate. ALLERGIES: To VINCENT inhibitors and shellfish. SOCIAL HISTORY: Smoking history is unknown. FAMILY HISTORY: Unable to obtain. REVIEW OF SYSTEMS: Unable to obtain. PHYSICAL EXAMINATION: GENERAL: An elderly male in no acute distress. VITAL SIGNS: Temperature is 97.9, blood pressure is 120/61, pulse is 62, respirations 24. HEENT: Normocephalic. NECK: Supple. NG tube is in place. ABDOMEN: Shows some firmness and some distention. BACK: No CVA tenderness. GENITOURINARY: Normal phallus. At the time of my exam, there appeared to be some urine in the underneath him, the patient may have been incontinent. EXTREMITIES: No clubbing or cyanosis. LABORATORY DATA: UA showed 3+ protein, 2 to 4 rbc's, 5 to 10 wbc's. His latest BUN is 68, creatinine 4.5. He did have creatinine of 1.1 at the time of admission. White count is 10.9, hemoglobin 9.4, and platelets are 136,000. DIAGNOSTIC IMAGING STUDIES: The patient had a renal ultrasound earlier today, there was no mention of hydronephrosis, the bladder was reported to be unremarkable without any evidence of distention reported. He also had a CT scan of the abdomen and pelvis back on 11/09/2017, and at that time, the kidneys were reported to be normal as was the bladder. IMPRESSION: 1. Acute kidney injury. 2. BPH history. 3. Rule out neurogenic bladder. 4. Pyuria. 5. Hematuria. 6. Proteinuria. PLAN AND DISCUSSION: The patient was evaluated and I initially attempted to pass regular Reyes catheter, which met with a little bit of resistance and at this time, I switched only to an 18-[place] coude catheter which I was able to pass into the bladder. There was essentially no return of urine. I then hand irrigated the Reyes and I was able to irrigate it well and I believe the catheter is in good position in the bladder and the bladder is probably empty. I do not believe his abdominal distention is related to bladder distention. At this time, the Reyes catheter was left indwelling and his urine output and renal function will be monitored. I would recommend cystoscopy in the future for evaluation of lower urinary tract. Thank you, , for asking to see this patient in consultation. Matt Calvert M.D. DR: Alex JOB#: [id number] CC:
[2017-11-14] MEDS: dilTIAZem HCl 60mg tab ORAL SCH ×4 (06:00→18:39)
[2017-11-14 08:00] VITALS: BP 143/87
[2017-11-14 08:40] LABS: HEMATOCRIT 28.9 % (42.0-52.0); HEMOGLOBIN 9.3 G/DL (14.2-18.0); MEAN CORPUSCULAR VOLUME 92 FL (80-99); PLATELET COUNT 126 K/UL (150-450); RED BLOOD COUNT 3.14 M/UL (4.70-6.10); RED CELL DISTRIBUTION WIDTH 14.5 % (11.6-14.8); WHITE BLOOD COUNT 8.9 K/UL (4.8-10.8)
[2017-11-14 08:52] LABS: ANION GAP 8 mmol/L (5-15); BLOOD UREA NITROGEN 72 mg/dL (7-18); CALCIUM 8.2 MG/DL (8.5-10.1); CARBON DIOXIDE 26 MMOL/L (21-32); CHLORIDE 100 MMOL/L (98-107); CREATININE 3.6 MG/DL (0.55-1.30); POTASSIUM 4.9 MMOL/L (3.5-5.1); SODIUM 134 MMOL/L (136-145)
[2017-11-14] MEDS ORDERED: dilTIAZem HCl CD 240mg cap ORAL SCH (09:00)
[2017-11-14] MEDS ORDERED: Enoxaparin 30mg Inj SUBQ SCH (09:00)
[2017-11-14] MEDS ORDERED: Aspirin EC 81mg tab ORAL SCH (09:00)
[2017-11-14] MEDS ORDERED: Enoxaparin 40mg Inj SUBQ SCH (09:00)
--- NOTE | 2017-11-14 09:16 | Urology Progress Note ---
Assessment/Plan Assessment/Plan 1. Acute kidney injury. 2. BPH history. 3. Rule out neurogenic bladder. 4. Pyuria. 5. Hematuria. 6. Proteinuria. keep ashford indwelling I personally hand irrigated [place], clots evacuated and urine cleared hand irrigate [place] PRN flomax, proscar, abx may need to hold asa and lovenox monitor renal fxn cysto later d/w nursing staff d/w Dr. Rubalcava Subjective Allergies: Coded Allergies: VINCENT INHIBITORS (Verified Allergy, Mild, 08/06/17) SHELLFISH (Verified Allergy, Unknown, 07/01/11) Subjective looks comfortable, ashford draining bloody urine overnight Objective Last 24 Hour Vital Signs Date Time Temp Pulse Resp B/P (MAP) Pulse Ox O2 Delivery O2 Flow Rate FiO2 11/14/17 08:00 97.3 74 22 143/87 94 Nasal Cannula 2.0 97.3 11/14/17 06:54 Nasal Cannula 2.0 28 11/14/17 06:54 94 Nasal Cannula 2.0 28 11/14/17 06:54 77 18 94 Nasal Cannula 2.0 28 11/14/17 04:00 97.3 78 22 145/74 98 Nasal Cannula 2.0 97.3 11/14/17 04:00 74 11/14/17 03:58 73 20 99 Nasal Cannula 2.0 28 11/14/17 03:44 71 22 92 Nasal Cannula 2.0 28 11/14/17 00:00 67 11/14/17 00:00 97.4 72 22 132/84 97 Nasal Cannula 2.0 97.4 11/13/17 20:00 97.5 82 22 137/71 96 Nasal Cannula 2.0 97.5 11/13/17 20:00 78 11/13/17 19:45 65 20 98 Nasal Cannula 2.0 28 11/13/17 19:30 Nasal Cannula 2.0 28 11/13/17 19:30 62 20 94 Nasal Cannula 2.0 28 11/13/17 19:30 94 Nasal Cannula 2.0 28 11/13/17 18:25 97.9 11/13/17 18:24 70 122/61 11/13/17 18:24 97.9 11/13/17 18:00 60 11/13/17 16:00 97.7 63 24 131/69 95 Nasal Cannula 2.0 97.7 2/28/18 14:29 61 20 100 Nasal Cannula 2.0 28 11/13/17 14:18 60 20 98 Nasal Cannula 2.0 28 11/13/17 12:00 97.9 62 24 120/61 98 Nasal Cannula 2.0 97.9 11/13/17 12:00 65 11/13/17 11:27 66 18 100 Nasal Cannula 2.0 28 11/13/17 11:13 61 18 97 Nasal Cannula 2.0 28 11/13/17 11:07 60 11/13/17 10:10 98.8 Intake and Output 11/13/17 11/14/17 19:00 07:00 Intake Total 1230 ml 1510.0 ml Output Total 500 ml Balance 1230 ml 1010.0 ml IV Total 1230 ml 1510.0 ml Output Urine Total 500 ml # Voids 1 # Bowel Movements 1 Microbiology Date/Time Source Procedure Growth Status 11/09/17 10:15 Blood Blood Culture - Preliminary NO GROWTH AFTER 4 DAYS Resulted 11/12/17 11:02 Body Fluid Pleura, Rt Lung Gram Stain - Final Resulted 11/12/17 11:02 Body Fluid Pleura, Rt Lung Body Fluid Culture - Preliminary Resulted 11/10/17 02:03 Nasal Nares Influenza Types A,B Antigen (GIOVANNI) - Final Complete Current Medications Medications (Trade) Dose Ordered Sig/Scot Route PRN Reason Start Time Stop Time Status Last Admin Dose Admin Acetaminophen/ Hydrocodone Bitart ([place] 7.5/325) 1 tab Q4H ORAL 11/13/17 22:30 11/20/17 22:29 11/13/17 23:16 Albuterol/ Ipratropium (Albuterol/ Ipratropium) 3 ml Q4HRT HHN 11/13/17 15:00 11/14/17 14:59 11/14/17 06:54 Aspirin (Ecotrin) 81 mg DAILY ORAL 11/14/17 09:00 12/10/17 08:59 Dextrose (Dextrose 50%) STAT PRN IV Hypoglycemia 11/13/17 11:30 12/09/17 11:29 Diltiazem HCl (Cardizem) 60 mg EVERY 6 HOURS ORAL 11/13/17 18:00 12/13/17 17:59 11/13/17 18:24 Docusate Sodium (Colace) 100 mg EVERY 12 HOURS ORAL 11/13/17 21:00 12/09/17 20:59 Enoxaparin Sodium (Lovenox) 30 mg DAILY SUBQ 11/14/17 09:00 12/14/17 08:59 Finasteride (Proscar) 5 mg DAILY ORAL 11/14/17 09:00 12/10/17 08:59 Lidocaine (Lidoderm 5% PATCH) 1 patch DAILY TDERMAL 11/14/17 09:00 12/10/17 08:59 Methylprednisolone Sodium Succinate (Solu-MEDROL) 40 mg EVERY 12 HOURS IVP 11/13/17 21:00 12/11/17 14:14 11/13/17 21:30 Metoprolol Succinate (Toprol XL) 50 mg DAILY ORAL 11/14/17 09:00 12/10/17 08:59 Nitroglycerin (Ntg) 0.4 mg Q5M X 3 DOSES PRN SL Prn Chest Pain 11/13/17 11:30 12/09/17 14:29 Pantoprazole (Protonix) 40 mg DAILY ORAL 11/14/17 09:00 12/10/17 08:59 Piperacillin Sod/ Tazobactam Sod 3.375 gm/Sodium Chloride 110 ml @ 27.5 mls/hr Q12HR IVPB 11/13/17 21:00 11/20/17 20:59 11/13/17 23:15 Polyethylene Glycol (Miralax) 17 gm HSPRN PRN ORAL Constipation 11/13/17 11:30 12/09/17 11:29 Sennosides (Senokot) 2 tab DAILY ORAL 11/14/17 09:00 12/09/17 14:29 Sodium Bicarbonate 100 ml/Dextrose 1,000 ml @ 150 mls/hr Q6H40M IV 11/14/17 11:30 12/14/17 11:29 Tamsulosin HCl (Flomax) 0.8 mg BEDTIME ORAL 11/13/17 21:00 12/09/17 20:59 11/13/17 21:28 Tizanidine HCl (Zanaflex) 2 mg THREE TIMES A DAY ORAL 11/13/17 13:00 12/09/17 19:59 11/13/17 18:25 Laboratory Tests 11/13/17 09:30: Urine Color Yellow, Urine Appearance Turbid, Urine pH 5, Urine Specific [place] 1.025, Urine Protein 3+H, Urine Glucose (UA) Negative, Urine Ketones 1+H, Urine Occult Blood 1+H, Urine Nitrite Negative, Urine Bilirubin Negative, Urine Urobilinogen Normal, Urine Leukocyte Esterase 1+H, Urine RBC 2-4H, Urine WBC 5- 10H, Urine Squamous Epithelial Cells Few, Urine Amorphous Sediment ModerateH, Urine Bacteria Few 11/14/17 02:10: Urine Random Sodium 75, Urine Creatinine 79.4 11/14/17 07:50: White Blood Count 8.9, Red Blood Count 3.14L, Hemoglobin 9.3L, Hematocrit 28.9L , Mean Corpuscular Volume 92, Mean Corpuscular Hemoglobin 29.6, Mean Corpuscular Hemoglobin Concent 32.2, Red Cell Distribution Width 14.5, Platelet Count 126L, Mean Platelet Volume 7.7, Neutrophils (%) (Auto) , Lymphocytes (%) ( Auto) , Monocytes (%) (Auto) , Eosinophils (%) (Auto) , Basophils (%) (Auto) , Neutrophils % (Manual) [Pending], Lymphocytes % (Manual) [Pending], Platelet Estimate [Pending], Platelet Morphology [Pending], Sodium Level 134L, Potassium Level 4.9, Chloride Level 100, Carbon Dioxide Level 26, Anion Gap 8, Blood Urea Nitrogen 72H, Creatinine 3.6H, Estimat Glomerular Filtration Rate , Glucose Level 179H, Calcium Level 8.2L Height (Feet): 5 Height (Inches): 8.00 Weight (Pounds): 130 Objective exam shows ashford indwellig, urine is grossly bloody, some clots PAULINE MUNOZ Nov 14, 2017 09:16
--- NOTE | 2017-11-14 09:55 | Pulmonology Progress Note ---
Assessment/Plan Assessment/Plan COPD, systolic and diastolic CHF, pulm HTN, pacemaker, atrial fibrillation, past stroke with dysarthria, aphasia prostate cancer. Hyperkalemia PLAN: The patient will continue on congestive heart failure regimen Respiratory treatments and steroids will be continued. On Solumedrol 40 mg IV q 12 Thoracentesis was performed ; 50 ml fluid removed. Renal and electrolyte management per renal Subjective Interval Events: No new events; now on tele Constitutional: Reports: no symptoms HEENT: Repors: no symptoms Respiratory: Reports: no symptoms Cardiovascular: Reports: no symptoms Gastrointestinal/Abdominal: Reports: no symptoms Allergies: Coded Allergies: VINCENT INHIBITORS (Verified Allergy, Mild, 08/06/17) SHELLFISH (Verified Allergy, Unknown, 07/01/11) Objective Last 24 Hour Vital Signs Date Time Temp Pulse Resp B/P (MAP) Pulse Ox O2 Delivery O2 Flow Rate FiO2 11/14/17 08:00 97.3 74 22 143/87 94 Nasal Cannula 2.0 97.3 11/14/17 07:05 78 20 99 Nasal Cannula 2.0 28 11/14/17 06:54 Nasal Cannula 2.0 28 11/14/17 06:54 94 Nasal Cannula 2.0 28 11/14/17 06:54 77 18 94 Nasal Cannula 2.0 28 11/14/17 04:00 97.3 78 22 145/74 98 Nasal Cannula 2.0 97.3 11/14/17 04:00 74 11/14/17 03:58 73 20 99 Nasal Cannula 2.0 28 11/14/17 03:44 71 22 92 Nasal Cannula 2.0 28 11/14/17 00:00 67 11/14/17 00:00 97.4 72 22 132/84 97 Nasal Cannula 2.0 97.4 11/13/17 20:00 97.5 82 22 137/71 96 Nasal Cannula 2.0 97.5 11/13/17 20:00 78 11/13/17 19:45 65 20 98 Nasal Cannula 2.0 28 11/13/17 19:30 Nasal Cannula 2.0 28 11/13/17 19:30 62 20 94 Nasal Cannula 2.0 28 11/13/17 19:30 94 Nasal Cannula 2.0 28 11/13/17 18:25 97.9 11/13/17 18:24 70 122/61 11/13/17 18:24 97.9 11/13/17 18:00 60 11/13/17 16:00 97.7 63 24 131/69 95 Nasal Cannula 2.0 97.7 11/13/17 14:29 61 20 100 Nasal Cannula 2.0 28 11/13/17 14:18 60 20 98 Nasal Cannula 2.0 28 11/13/17 12:00 97.9 62 24 120/61 98 Nasal Cannula 2.0 97.9 11/13/17 12:00 65 11/13/17 11:27 66 18 100 Nasal Cannula 2.0 28 11/13/17 11:13 61 18 97 Nasal Cannula 2.0 28 11/13/17 11:07 60 11/13/17 10:10 98.8 Intake and Output 11/13/17 11/14/17 19:00 07:00 Intake Total 1230 ml 1510.0 ml Output Total 500 ml Balance 1230 ml 1010.0 ml IV Total 1230 ml 1510.0 ml Output Urine Total 500 ml # Voids 1 # Bowel Movements 1 General Appearance: no acute distress HEENT: normocephalic Respiratory/Chest: chest wall non-tender, decreased breath sounds Cardiovascular: normal peripheral pulses, normal rate Microbiology Date/Time Source Procedure Growth Status 11/12/17 11:02 Body Fluid Pleura, Rt Lung Gram Stain - Final Resulted 11/12/17 11:02 Body Fluid Pleura, Rt Lung Body Fluid Culture - Preliminary Resulted 11/12/17 17:40 Nasal Nares MRSA Culture - Final NO METHICILLIN RESISTANT STAPH AUREUS... Complete Laboratory Tests 11/14/17 02:10: Urine Random Sodium 75, Urine Creatinine 79.4 11/14/17 07:50: White Blood Count 8.9, Red Blood Count 3.14L, Hemoglobin 9.3L, Hematocrit 28.9L , Mean Corpuscular Volume 92, Mean Corpuscular Hemoglobin 29.6, Mean Corpuscular Hemoglobin Concent 32.2, Red Cell Distribution Width 14.5, Platelet Count 126L, Mean Platelet Volume 7.7, Neutrophils (%) (Auto) , Lymphocytes (%) ( Auto) , Monocytes (%) (Auto) , Eosinophils (%) (Auto) , Basophils (%) (Auto) , Neutrophils % (Manual) [Pending], Lymphocytes % (Manual) [Pending], Platelet Estimate [Pending], Platelet Morphology [Pending], Sodium Level 134L, Potassium Level 4.9, Chloride Level 100, Carbon Dioxide Level 26, Anion Gap 8, Blood Urea Nitrogen 72H, Creatinine 3.6H, Estimat Glomerular Filtration Rate , Glucose Level 179H, Calcium Level 8.2L Current Medications Medications (Trade) Dose Ordered Sig/Scot Route PRN Reason Start Time Stop Time Status Last Admin Dose Admin Acetaminophen/ Hydrocodone Bitart ([place] 7.5/325) 1 tab Q4H ORAL 11/13/17 22:30 11/20/17 22:29 11/13/17 23:16 Albuterol/ Ipratropium (Albuterol/ Ipratropium) 3 ml Q4HRT HHN 11/13/17 15:00 11/14/17 14:59 11/14/17 06:54 Aspirin (Ecotrin) 81 mg DAILY ORAL 11/14/17 09:00 12/10/17 08:59 Dextrose (Dextrose 50%) STAT PRN IV Hypoglycemia 11/13/17 11:30 12/09/17 11:29 Diltiazem HCl (Cardizem) 60 mg EVERY 6 HOURS ORAL 11/13/17 18:00 12/13/17 17:59 11/13/17 18:24 Docusate Sodium (Colace) 100 mg EVERY 12 HOURS ORAL 11/13/17 21:00 12/09/17 20:59 Enoxaparin Sodium (Lovenox) 30 mg DAILY SUBQ 11/14/17 09:00 12/14/17 08:59 Finasteride (Proscar) 5 mg DAILY ORAL 11/14/17 09:00 12/10/17 08:59 Lidocaine (Lidoderm 5% PATCH) 1 patch DAILY TDERMAL 11/14/17 09:00 12/10/17 08:59 Methylprednisolone Sodium Succinate (Solu-MEDROL) 40 mg EVERY 12 HOURS IVP 11/13/17 21:00 12/11/17 14:14 11/13/17 21:30 Metoprolol Succinate (Toprol XL) 50 mg DAILY ORAL 11/14/17 09:00 12/10/17 08:59 Nitroglycerin (Ntg) 0.4 mg Q5M X 3 DOSES PRN SL Prn Chest Pain 11/13/17 11:30 12/09/17 14:29 Pantoprazole (Protonix) 40 mg DAILY ORAL 11/14/17 09:00 12/10/17 08:59 Piperacillin Sod/ Tazobactam Sod 3.375 gm/Sodium Chloride 110 ml @ 27.5 mls/hr Q12HR IVPB 11/13/17 21:00 11/20/17 20:59 11/13/17 23:15 Polyethylene Glycol (Miralax) 17 gm HSPRN PRN ORAL Constipation 11/13/17 11:30 12/09/17 11:29 Sennosides (Senokot) 2 tab DAILY ORAL 11/14/17 09:00 12/09/17 14:29 Sodium Bicarbonate 100 ml/Dextrose 1,000 ml @ 150 mls/hr Q6H40M IV 11/14/17 11:30 12/14/17 11:29 Tamsulosin HCl (Flomax) 0.8 mg BEDTIME ORAL 11/13/17 21:00 12/09/17 20:59 11/13/17 21:28 Tizanidine HCl (Zanaflex) 2 mg THREE TIMES A DAY ORAL 11/13/17 13:00 12/09/17 19:59 11/13/17 18:25 Davy Smith MD Nov 14, 2017 09:55
[2017-11-14] MEDS: Piperacillin/Tazobactam 3.375 GM in NS 110 ML IVPB SCH ×2 (10:27→21:34)
[2017-11-14] MEDS: Solu-MEDROL 40mg Inj IVP SCH ×2 (10:30→21:33)
--- NOTE | 2017-11-14 11:09 | GI Initial Consult Note ---
Kimberlyn [facility] N.P. 11/14/17 1109: History of Present Illness General Date patient seen: Nov 14, 2017 Time patient seen: 11:00 Reason for Hospitalization: Dyspnea/Respdistress Referring physician: HODAN GAYTAN Reason for Consultation: PEG EVALUATION Present Illness HPI Patient presents with nontraumatic low back pain and rectal bleeding. Also he is short of breath. This began yesterday. Pain is worse on the left-hand side of his back and radiates down his left leg. He rates pain 10/10 to me (8/10 to RN). Has never had pain like this before according to him. Pain is burning. The rectal bleeding was scan amount and BRB. Straining with passing stool. No pain in the rectum. H/O GI bleed in past - felt to be from small bowel. Endoscopies apparently negative. He is on aspirin. No fevers, chills, vomiting, diarrhea. No dysuria. Post CVA with dysarthria/expressive aphasia. The patient has COPD and CHF. He denies any chest pain. Last used his nebulizer last night. GI consulted for PEG evaluation. ROS limited, patient with history of aphasia. Seen awake and alert NAD with no active s/sx of N/V/D. NGT present clamped. Patient presents today with dysphagia pending swallow evaluation today. Labs reviewed. EGD/colonoscopy performed in September 2015 dx of 2cm hiatal hernia and old blood in colon. Home Meds Active Scripts Potassium Chloride* (K-DUR*) 20 Meq Tab.er.prt, 20 MEQ ORAL TWICE A DAY for 30 Days, #60 TAB Prov:HODAN GAYTAN 10/10/17 Spironolactone (ALDACTONE) 25 Mg Tablet, 25 MG ORAL DAILY for 30 Days, #30 TAB Prov:HODAN GAYTAN 08/10/17 Furosemide (Furosemide) 80 Mg Tablet, 80 MG ORAL EVERY 12 HOURS for 30 Days, # 60 TAB Prov:HODAN GAYTAN 08/10/17 Reported Medications Ferrous Gluconate (FERROUS GLUCONATE) 324 Mg Tablet, 324 MG PO DAILY 10/07/17 Pantoprazole* (PANTOPRAZOLE*) 40 Mg Tablet.dr, 40 MG ORAL DAILY 10/07/17 Diltiazem Hcl (DILTIAZEM 24HR ER) 240 Mg Cap.er.24h, 240 MG PO 10/07/17 Diltiazem Hcl* (CARTIA XT*) 180 Mg Cap.er.24h, 180 MG ORAL DAILY Swallow capsule whole. Do not open, chew, or crush 10/07/17 Metoprolol Succinate* (METOPROLOL SUCCINATE*) 50 Mg Tab.er.24h, 50 MG ORAL DAILY 10/07/17 Aspirin* (ASPIR 81*) 81 Mg Tablet.dr, 81 MG ORAL DAILY 10/07/17 Losartan Potassium* (LOSARTAN POTASSIUM*) 50 Mg Tablet, 50 MG ORAL DAILY, TAB 08/05/17 Finasteride* (PROSCAR*) 5 Mg Tablet, 5 MG ORAL DAILY, #30 TAB 0 Refills 02/23/17 Prazosin Hcl* (MINIPRESS*) 5 Mg Capsule, 5 MG PO BEDTIME, CAP 06/19/15 Simvastatin (ZOCOR) 40 Mg Tablet, 40 MG ORAL BEDTIME, TAB 04/15/14 Med list reviewed/reconciled: Yes Allergies: Coded Allergies: VINCENT INHIBITORS (Verified Allergy, Mild, 08/06/17) SHELLFISH (Verified Allergy, Unknown, 07/01/11) Patient History Limited by: medical condition History Provided By: Medical Record PMH Narrative Last admitted 10/11 with these discharge dx: 1. Congestive heart failure, acute on chronic with systolic and diastolic dysfunction. 2. History of permanent pacemaker. 3. History of paroxysmal atrial fibrillation. 4. History of prior cerebrovascular accident. 5. History of prior gastrointestinal bleeding. 6. Acute bronchitis. 7. Chronic obstructive pulmonary disease with acute exacerbation. 8. Anemia, iron deficiency, chronic. 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 Reviewed Nursing Documentation: PMH: Agreed, PSxH: Agreed Nursing Documentation-PMH Hx Cardiac Problems: Yes Hx Hypertension: Yes Hx Pacemaker: Yes - VPACED Hx Asthma: Yes Hx COPD: Yes Hx Diabetes: No Hx Cancer: No Hx Gastrointestinal Problems: Yes Hx Neurological Problems: Yes Hx Cerebrovascular Accident: Yes Hx Speech Problem: Yes - Aphesia Hx Dizziness: Yes Hx Syncope: Yes Hx Headaches: Yes Hx Aphasia: Yes Hx Dysphasia: Yes Hx Weakness: Yes Hx Fatigue: Yes Review of Systems All Other Systems: limited Physical Exam Vital Signs Date Time Temp Pulse Resp B/P (MAP) Pulse Ox O2 Delivery O2 Flow Rate FiO2 11/10/17 07:47 96 Nasal Cannula 2.0 28 11/10/17 08:00 97.2 84 22 131/66 97.2 Sp02 EP Interpretation: reviewed Labs Laboratory Tests Test 11/14/17 02:10 11/14/17 07:50 Urine Random Sodium 75 MEQ/L (20-110) Urine Creatinine 79.4 MG/DL (30.0-125.0) White Blood Count 8.9 K/UL (4.8-10.8) Red Blood Count 3.14 M/UL (4.70-6.10) L Hemoglobin 9.3 G/DL (14.2-18.0) L Hematocrit 28.9 % (42.0-52.0) L Mean Corpuscular Volume 92 FL (80-99) Mean Corpuscular Hemoglobin 29.6 PG (27.0-31.0) Mean Corpuscular Hemoglobin Concent 32.2 G/DL (32.0-36.0) Red Cell Distribution Width 14.5 % (11.6-14.8) Platelet Count 126 K/UL (150-450) L Mean Platelet Volume 7.7 FL (6.5-10.1) Neutrophils (%) (Auto) % (45.0-75.0) Lymphocytes (%) (Auto) % (20.0-45.0) Monocytes (%) (Auto) % (1.0-10.0) Eosinophils (%) (Auto) % (0.0-3.0) Basophils (%) (Auto) % (0.0-2.0) Differential Total Cells Counted 100 Neutrophils % (Manual) 92 % (45-75) H Lymphocytes % (Manual) 7 % (20-45) L Monocytes % (Manual) 1 % (1-10) Eosinophils % (Manual) 0 % (0-3) Basophils % (Manual) 0 % (0-2) Band Neutrophils 0 % (0-8) Platelet Estimate Decreased L Platelet Morphology Normal Hypochromasia 1+ Anisocytosis 1+ Sodium Level 134 MMOL/L (136-145) L Potassium Level 4.9 MMOL/L (3.5-5.1) Chloride Level 100 MMOL/L (98-107) Carbon Dioxide Level 26 MMOL/L (21-32) Anion Gap 8 mmol/L (5-15) Blood Urea Nitrogen 72 mg/dL (7-18) H Creatinine 3.6 MG/DL (0.55-1.30) H Estimat Glomerular Filtration Rate mL/min (>60) Glucose Level 179 MG/DL (74-106) H Calcium Level 8.2 MG/DL (8.5-10.1) L General Appearance: no apparent distress, alert, thin Head: normocephalic EENT: normal ENT inspection Neck: supple Respiratory: normal breath sounds, no respiratory distress Cardiovascular: normal rate Gastrointestinal: ngt Rectal: deferred Genitourinary: no CVA tenderness Musculoskeletal: back normal Neurologic: alert Skin: normal inspection, normal color, no rash, warm/dry Lymphatic: normal inspection, no adenopathy Current Medications Current Medications Medications (Trade) Dose Ordered Sig/Scot Route PRN Reason Start Time Stop Time Status Last Admin Dose Admin Acetaminophen/ Hydrocodone Bitart ([place] 7.5/325) 1 tab Q4H ORAL 11/13/17 22:30 11/20/17 22:29 11/13/17 23:16 Albuterol/ Ipratropium (Albuterol/ Ipratropium) 3 ml Q4HRT HHN 11/13/17 15:00 11/14/17 14:59 11/14/17 06:54 Aspirin (Ecotrin) 81 mg DAILY ORAL 11/14/17 09:00 12/10/17 08:59 Dextrose (Dextrose 50%) STAT PRN IV Hypoglycemia 11/13/17 11:30 12/09/17 11:29 Diltiazem HCl (Cardizem) 60 mg EVERY 6 HOURS ORAL 11/13/17 18:00 12/13/17 17:59 11/13/17 18:24 Docusate Sodium (Colace) 100 mg EVERY 12 HOURS ORAL 11/13/17 21:00 12/09/17 20:59 Enoxaparin Sodium (Lovenox) 30 mg DAILY SUBQ 11/14/17 09:00 12/14/17 08:59 11/14/17 10:32 Finasteride (Proscar) 5 mg DAILY ORAL 11/14/17 09:00 12/10/17 08:59 Lidocaine (Lidoderm 5% PATCH) 1 patch DAILY TDERMAL 11/14/17 09:00 12/10/17 08:59 11/14/17 10:26 Methylprednisolone Sodium Succinate (Solu-MEDROL) 40 mg EVERY 12 HOURS IVP 11/13/17 21:00 12/11/17 14:14 11/14/17 10:30 Metoprolol Succinate (Toprol XL) 50 mg DAILY ORAL 11/14/17 09:00 12/10/17 08:59 Nitroglycerin (Ntg) 0.4 mg Q5M X 3 DOSES PRN SL Prn Chest Pain 11/13/17 11:30 12/09/17 14:29 Pantoprazole (Protonix) 40 mg DAILY ORAL 11/14/17 09:00 12/10/17 08:59 Piperacillin Sod/ Tazobactam Sod 3.375 gm/Sodium Chloride 110 ml @ 27.5 mls/hr Q12HR IVPB 11/13/17 21:00 11/20/17 20:59 11/14/17 10:27 Polyethylene Glycol (Miralax) 17 gm HSPRN PRN ORAL Constipation 11/13/17 11:30 12/09/17 11:29 Sennosides (Senokot) 2 tab DAILY ORAL 11/14/17 09:00 12/09/17 14:29 Sodium Bicarbonate 100 ml/Dextrose 1,000 ml @ 150 mls/hr Q6H40M IV 11/14/17 11:30 12/14/17 11:29 Tamsulosin HCl (Flomax) 0.8 mg BEDTIME ORAL 11/13/17 21:00 12/09/17 20:59 11/13/17 21:28 Tizanidine HCl (Zanaflex) 2 mg THREE TIMES A DAY ORAL 11/13/17 13:00 12/09/17 19:59 11/13/17 18:25 GI: Plan Problems: (1) Dysphagia (2) Encounter for PEG (percutaneous endoscopic gastrostomy) (3) Anemia Plan PEG scheduled tomorrow. - NGTFs now, NPO @ [facility]. - hold all blood thinners tonight anemia of chronic disease prn transfusions ppi fu labs will follow up with additional recs Discussed with [facility]. Thank you for this patient referral, we will follow. SHAILESH STEVENSOND 11/18/17 1006: History of Present Illness General Reason for Hospitalization: Dyspnea/Respdistress Present Illness Home Meds Active Scripts Potassium Chloride* (K-DUR*) 20 Meq Tab.er.prt, 20 MEQ ORAL TWICE A DAY for 30 Days, #60 TAB Prov:ULKASHODAN 10/10/17 Spironolactone (ALDACTONE) 25 Mg Tablet, 25 MG ORAL DAILY for 30 Days, #30 TAB Prov:HODAN GAYTAN 08/10/17 Furosemide (Furosemide) 80 Mg Tablet, 80 MG ORAL EVERY 12 HOURS for 30 Days, # 60 TAB Prov:LUKASHODAN 08/10/17 Reported Medications Ferrous Gluconate (FERROUS GLUCONATE) 324 Mg Tablet, 324 MG PO DAILY 10/07/17 Pantoprazole* (PANTOPRAZOLE*) 40 Mg Tablet.dr, 40 MG ORAL DAILY 10/07/17 Diltiazem Hcl (DILTIAZEM 24HR ER) 240 Mg Cap.er.24h, 240 MG PO 10/07/17 Diltiazem Hcl* (CARTIA XT*) 180 Mg Cap.er.24h, 180 MG ORAL DAILY Swallow capsule whole. Do not open, chew, or crush 10/07/17 Metoprolol Succinate* (METOPROLOL SUCCINATE*) 50 Mg Tab.er.24h, 50 MG ORAL DAILY 10/07/17 Aspirin* (ASPIR 81*) 81 Mg Tablet.dr, 81 MG ORAL DAILY 10/07/17 Losartan Potassium* (LOSARTAN POTASSIUM*) 50 Mg Tablet, 50 MG ORAL DAILY, TAB 08/05/17 Finasteride* (PROSCAR*) 5 Mg Tablet, 5 MG ORAL DAILY, #30 TAB 0 Refills 02/23/17 Prazosin Hcl* (MINIPRESS*) 5 Mg Capsule, 5 MG PO BEDTIME, CAP 06/19/15 Simvastatin (ZOCOR) 40 Mg Tablet, 40 MG ORAL BEDTIME, TAB 04/15/14 Allergies: Coded Allergies: VINCENT INHIBITORS (Verified Allergy, Mild, 08/06/17) SHELLFISH (Verified Allergy, Unknown, 07/01/11) GI: Plan Plan The patient was seen and examined at bedside and all new and available data was reviewed in the patients chart. I agree with the above findings, impression and plan. (Patient seen earlier today. Signature stamp does not reflect patient encounter time.). - MD Jenna Alvarado Anh Werner Galvez Nov 14, 2017 11:09 MARK STEVENSON Nov 18, 2017 10:06
--- NOTE | 2017-11-14 11:27 | Diagnostic Imaging Report ---
Indication: Post nasogastric tube placement Technique: Supine view of the abdomen Comparison: 11/13/2017 Findings: Again demonstrated is a nasogastric tube, tip projected at the level of the gastric fundus, proximal port beyond the gastroesophageal junction. Most of the chest is included, demonstrates some volume loss in the right lung with a moderate to large right pleural effusion. There is cardiomegaly and interstitial congestion. These been reported on prior chest radiographs. There is a right chest pacemaker Impression: Satisfactory nasogastric intubation Stable thoracic findings as described This agrees with the preliminary interpretation provided overnight by [facility] teleradiology service.
[2017-11-14] MEDS ORDERED: SODIUM BICARBONATE IV SCH (11:30)
[2017-11-14] MEDS ORDERED: D5W IV SCH (11:30)
[2017-11-14 12:00] VITALS: BP 156/76
[2017-11-14] MEDS: Metoprolol Succinate XL 50mg tab ORAL SCH (12:13)
[2017-11-14] MEDS: Docusate 100mg cap ORAL SCH ×2 (12:22→21:00)
[2017-11-14] MEDS: Sennosides 8.6mg ORAL SCH (12:22)
[2017-11-14] MEDS ORDERED: 1/2 NS 1000ml IV ONE (15:25)
[2017-11-14] MEDS ORDERED: NS 275ml ONE (15:25)
[2017-11-14 16:00] VITALS: BP 130/70
--- NOTE | 2017-11-14 16:23 | General Progress Note ---
Assessment/Plan Problem List: (1) Gait abnormality ICD Codes: R26.9 - Unspecified abnormalities of gait and mobility SNOMED: 20014006 (2) Pleural effusion ICD Codes: J90 - Pleural effusion, not elsewhere classified SNOMED: 00171382 (3) CHF (congestive heart failure), NYHA class IV ICD Codes: I50.9 - Heart failure, unspecified SNOMED: 814738661, 762014871 (4) Spinal stenosis ICD Codes: M48.00 - Spinal stenosis, site unspecified SNOMED: 50271304 Qualifiers: Qualified Codes: M48.061 - Spinal stenosis, lumbar region without neurogenic claudication (5) 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 ICD Codes: M51.26 - Other intervertebral disc displacement, lumbar region SNOMED: 90094100 (6) 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 ICD Codes: I69.922 - 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 SNOMED: 388661638 (7) COPD (chronic obstructive pulmonary disease) ICD Codes: J44.9 - Chronic obstructive pulmonary disease, unspecified SNOMED: 79804804 (8) Hyperkalemia ICD Codes: E87.5 - Hyperkalemia SNOMED: 41513451 (9) HELLEN (acute kidney injury) ICD Codes: N17.9 - Acute kidney failure, unspecified SNOMED: 50430526 (10) COPD exacerbation ICD Codes: J44.1 - Chronic obstructive pulmonary disease with (acute) exacerbation SNOMED: 044640728 (11) Urinary retention ICD Codes: R33.9 - Retention of urine, unspecified SNOMED: 462624879 (12) Bladder outlet obstruction ICD Codes: N32.0 - Bladder-neck obstruction SNOMED: 752759546 (13) Dysphagia ICD Codes: R13.10 - Dysphagia, unspecified SNOMED: 90351991, 171432744 Assessment/Plan high K dc K retaining meds, lasix dc 11/12 , iv fluids as overdiuresis and hellen, steroids as asthma exacerbation, continue rx for back pain , zosyn for pneumonia , hematuria and hold anticoag, dysphagia , ng feed possible peg Subjective Constitutional: Reports: weakness HEENT: Reports: no symptoms Cardiovascular: Reports: no symptoms Respiratory: Reports: cough, shortness of breath Gastrointestinal/Abdominal: Reports: abdomen distended, other - dysphagia Genitourinary: Reports: hematuria Neurologic/Psychiatric: Reports: pre-existing deficit Endocrine: Reports: no symptoms Hematologic/Lymphatic: Reports: anemia Allergies: Coded Allergies: VINCENT INHIBITORS (Verified Allergy, Mild, 08/06/17) SHELLFISH (Verified Allergy, Unknown, 07/01/11) Subjective worse cough, mod back pain Objective Last 24 Hour Vital Signs Date Time Temp Pulse Resp B/P (MAP) Pulse Ox O2 Delivery O2 Flow Rate FiO2 11/14/17 15:33 97.2 11/14/17 15:22 Nasal Cannula 11/14/17 15:22 Nasal Cannula 2.0 11/14/17 13:16 97.2 11/14/17 12:45 84 156/76 11/14/17 12:17 97.2 11/14/17 12:13 84 156/76 11/14/17 12:00 97.2 84 22 156/76 94 Nasal Cannula 2.0 97.2 11/14/17 11:55 70 18 99 Nasal Cannula 2.0 11/14/17 11:46 68 17 94 Nasal Cannula 2.0 11/14/17 08:00 97.3 74 22 143/87 94 Nasal Cannula 2.0 97.3 11/14/17 07:05 78 20 99 Nasal Cannula 2.0 28 11/14/17 06:54 Nasal Cannula 2.0 28 11/14/17 06:54 94 Nasal Cannula 2.0 28 11/14/17 06:54 77 18 94 Nasal Cannula 2.0 28 11/14/17 04:00 97.3 78 22 145/74 98 Nasal Cannula 2.0 97.3 11/14/17 04:00 74 11/14/17 03:58 73 20 99 Nasal Cannula 2.0 28 11/14/17 03:44 71 22 92 Nasal Cannula 2.0 28 11/14/17 00:00 67 11/14/17 00:00 97.4 72 22 132/84 97 Nasal Cannula 2.0 97.4 11/13/17 20:00 97.5 82 22 137/71 96 Nasal Cannula 2.0 97.5 11/13/17 20:00 78 11/13/17 19:45 65 20 98 Nasal Cannula 2.0 28 11/13/17 19:30 Nasal Cannula 2.0 28 11/13/17 19:30 62 20 94 Nasal Cannula 2.0 28 11/13/17 19:30 94 Nasal Cannula 2.0 28 11/13/17 18:25 97.9 11/13/17 18:24 70 122/61 11/13/17 18:24 97.9 11/13/17 18:00 60 Intake and Output 11/13/17 11/14/17 19:00 07:00 Intake Total 1230 ml 1510.0 ml Output Total 500 ml Balance 1230 ml 1010.0 ml IV Total 1230 ml 1510.0 ml Output Urine Total 500 ml # Voids 1 # Bowel Movements 1 Laboratory Tests 11/14/17 02:10: Urine Random Sodium 75, Urine Creatinine 79.4 11/14/17 07:50: White Blood Count 8.9, Red Blood Count 3.14L, Hemoglobin 9.3L, Hematocrit 28.9L , Mean Corpuscular Volume 92, Mean Corpuscular Hemoglobin 29.6, Mean Corpuscular Hemoglobin Concent 32.2, Red Cell Distribution Width 14.5, Platelet Count 126L, Mean Platelet Volume 7.7, Neutrophils (%) (Auto) , Lymphocytes (%) ( Auto) , Monocytes (%) (Auto) , Eosinophils (%) (Auto) , Basophils (%) (Auto) , Differential Total Cells Counted 100, Neutrophils % (Manual) 92H, Lymphocytes % (Manual) 7L, Monocytes % (Manual) 1, Eosinophils % (Manual) 0, Basophils % ( Manual) 0, Band Neutrophils 0, Platelet Estimate DecreasedL, Platelet Morphology Normal, Hypochromasia 1+, Anisocytosis 1+, Sodium Level 134L, Potassium Level 4.9, Chloride Level 100, Carbon Dioxide Level 26, Anion Gap 8, Blood Urea Nitrogen 72H, Creatinine 3.6H, Estimat Glomerular Filtration Rate , Glucose Level 179H, Calcium Level 8.2L Height (Feet): 5 Height (Inches): 8.00 Weight (Pounds): 130 General Appearance: alert, mild distress EENT: normal ENT inspection Neck: normal alignment Cardiovascular: regular rhythm Respiratory/Chest: rhonchi - bilaterally Abdomen: distended Edema: trace edema 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
[2017-11-14 20:00] VITALS: BP 126/54
[2017-11-14] MEDS: Tamsulosin 0.4mg cap ORAL SCH (21:35)
[2017-11-15] VITALS (10 sets, daily range): BP systolic 120–151; BP diastolic 61–85
[2017-11-15] MEDS: dilTIAZem HCl 60mg tab ORAL SCH ×4 (01:11→18:17)
[2017-11-15] MEDS: HYDROcodone/Acetamin 7.5/325 tab ORAL SCH ×6 (02:06→22:45)
[2017-11-15] MEDS: Albuterol/Ipratropium 3ml neb HHN SCH ×6 (03:40→23:24)
[2017-11-15 07:00] LABS: HEMATOCRIT 29.8 % (42.0-52.0); HEMOGLOBIN 9.5 G/DL (14.2-18.0); MEAN CORPUSCULAR VOLUME 93 FL (80-99); PLATELET COUNT 120 K/UL (150-450); RED BLOOD COUNT 3.22 M/UL (4.70-6.10); RED CELL DISTRIBUTION WIDTH 14.8 % (11.6-14.8); WHITE BLOOD COUNT 8.2 K/UL (4.8-10.8)
[2017-11-15 07:06] LABS: INR 1.4 (0.9-1.1)
[2017-11-15 07:13] LABS: ANION GAP 5 mmol/L (5-15); BLOOD UREA NITROGEN 61 mg/dL (7-18); CALCIUM 8.6 MG/DL (8.5-10.1); CARBON DIOXIDE 33 MMOL/L (21-32); CHLORIDE 100 MMOL/L (98-107); CREATININE 2.2 MG/DL (0.55-1.30); POTASSIUM 4.3 MMOL/L (3.5-5.1); SODIUM 138 MMOL/L (136-145)
--- NOTE | 2017-11-15 08:59 | Pre-Procedure Note/Attestation ---
Pre-Procedure Note/Attestation Complete Prior to Procedure Planned Procedure: not applicable Procedure Narrative: esophagogastroduodenoscopy peg Indications for Procedure Pre-Operative Diagnosis: dysphagia Attestation I attest that I discussed the nature of the procedure; its benefits; risks and complications; and alternatives (and the risks and benefits of such alternatives ), prior to the procedure, with the patient (or the patient's legal surgical sales representative). I attest that, if there was a reasonable possibility of needing a blood transfusion, the patient (or the patient's legal surgical sales representative) was given the [facility] standardized written summary, pursuant to the Sanjiv Rafa Blood Safety Act ([place] Health and Safety Code # 1645, as amended). I attest that I re-evaluated the patient just prior to the surgery and that there has been no change in the patient's H&P, except as documented below: MARK STEVENSON Nov 15, 2017 08:59
[2017-11-15] MEDS: Solu-MEDROL 40mg Inj IVP SCH ×2 (09:06→20:45)
[2017-11-15] MEDS: Piperacillin/Tazobactam 3.375 GM in NS 110 ML IVPB SCH ×3 (09:06→22:46)
--- NOTE | 2017-11-15 09:10 | Anethesia Preoperative Eval ---
Anesthesia Pre-op PMH/ROS General Date of Evaluation: Nov 15, 2017 Time of Evaluation: 09:40 Anesthesiologist: nela ASA Score: ASA 4 Mallampati Score Class I : Soft palate, uvula, fauces, pillars visible Class II: Soft palate, uvula, fauces visible Class III: Soft palate, base of uvula visible Class IV: Only hard plate visible Mallampati Classification: Class II Surgeon: tenzin Diagnosis: failure to thrive Surgical Procedure: EGD/PEG Anesthesia History: other - unknown Family History: no anesthesia problems Allergies: Coded Allergies: VINCENT INHIBITORS (Verified Allergy, Mild, 08/06/17) SHELLFISH (Verified Allergy, Unknown, 07/01/11) Medications: see eMAR Past Medical History Cardiovascular: Reports: HTN, CAD, arrhythmia - afib, other - pacemaker Pulmonary: Reports: asthma, COPD, other - Ronchi Gastrointestinal/Genitourinary: Reports: GERD Neurologic/Psychiatric: Reports: CVA, Denies: dementia, depression/anxiety, TIA, other Endocrine: Reports: steroids HEENT: Denies: cataract (L), cataract (R), glaucoma, ABSENTEE-SHAWNEE (L), ABSENTEE-SHAWNEE (R), other Hematology/Immune: Reports: anemia, Denies: DVT, bleeding disorder, other Musculoskeletal/Integumentary: Denies: OA, RA, DJD, DDD, edema, other PMH Narrative: COPD, systolic and diastolic CHF, pulm HTN, pacemaker, atrial fibrillation, past stroke with dysarthria, aphasia prostate cancer. Hyperkalemia Anesthesia Pre-op Phys. Exam Physician Exam Last Vital Signs Date Time Temp Pulse Resp B/P (MAP) Pulse Ox O2 Delivery O2 Flow Rate FiO2 11/15/17 08:00 75 11/15/17 06:45 20 99 Nasal Cannula 2.0 28 11/15/17 05:38 141/64 11/15/17 04:00 97.3 97.3 Constitutional: other - see h&p notes Neurologic: other - reponsive to pain only Cardiovascular: other - afib/SR Respiratory: other - Ronchi through out Gastrointestinal: other - distended Airway Exam Mallampati Classification 3 Mallampati Score: Class III MO: limited ROM: limited Teeth: missing Dentures: no upper, no lower Anesthesia Pre-op A/P Labs Hematology Test 11/15/17 06:10 White Blood Count 8.2 K/UL (4.8-10.8) Red Blood Count 3.22 M/UL (4.70-6.10) L Hemoglobin 9.5 G/DL (14.2-18.0) L Hematocrit 29.8 % (42.0-52.0) L Mean Corpuscular Volume 93 FL (80-99) Mean Corpuscular Hemoglobin 29.4 PG (27.0-31.0) Mean Corpuscular Hemoglobin Concent 31.8 G/DL (32.0-36.0) L Red Cell Distribution Width 14.8 % (11.6-14.8) Platelet Count 120 K/UL (150-450) L Mean Platelet Volume 7.1 FL (6.5-10.1) Neutrophils (%) (Auto) % (45.0-75.0) Lymphocytes (%) (Auto) % (20.0-45.0) Monocytes (%) (Auto) % (1.0-10.0) Eosinophils (%) (Auto) % (0.0-3.0) Basophils (%) (Auto) % (0.0-2.0) Neutrophils % (Manual) Pending Lymphocytes % (Manual) Pending Platelet Estimate Pending Platelet Morphology Pending Coagulation Test 11/15/17 06:10 Prothrombin Time 14.8 SEC (9.30-11.50) H Prothromb Time International Ratio 1.4 (0.9-1.1) H Activated Partial Thromboplast Time 33 SEC (23-33) Chemistry Test 11/15/17 06:10 Sodium Level 138 MMOL/L (136-145) Potassium Level 4.3 MMOL/L (3.5-5.1) Chloride Level 100 MMOL/L (98-107) Carbon Dioxide Level 33 MMOL/L (21-32) H Anion Gap 5 mmol/L (5-15) Blood Urea Nitrogen 61 mg/dL (7-18) H Creatinine 2.2 MG/DL (0.55-1.30) H Estimat Glomerular Filtration Rate mL/min (>60) Glucose Level 146 MG/DL (74-106) H Calcium Level 8.6 MG/DL (8.5-10.1) Studies Pre-op Studies: EKG - afib, CXR - pleural effusion/ Risk Assessment & Plan Assessment: oriented to pain/ on 3 L NC; sats 97% Plan: mac Status Change Before Surgery: No Pre-Antibiotics Drug: zosyn Given Within 1 Hr of Incision: Yes Time Given: 09:00 JACE TILLMAN CRNA Nov 15, 2017 09:10
[2017-11-15] MEDS ORDERED: NS 500ML IV ONE (09:35)
[2017-11-15] MEDS ORDERED: Lidocaine 1% MPF 10mg/ml 5ml ONE (10:00)
[2017-11-15] MEDS ORDERED: Propofol 200mg/20ml IV ONE (10:00)
--- NOTE | 2017-11-15 10:04 | General Progress Note ---
Assessment/Plan Problem List: (1) Dysphagia ICD Codes: R13.10 - Dysphagia, unspecified SNOMED: 25526246, 533488699 (2) Encounter for PEG (percutaneous endoscopic gastrostomy) ICD Codes: Z43.1 - Encounter for attention to gastrostomy SNOMED: 974040877, 705632455 (3) Anemia ICD Codes: D64.9 - Anemia, unspecified SNOMED: 444184709 (4) COPD exacerbation ICD Codes: J44.1 - Chronic obstructive pulmonary disease with (acute) exacerbation SNOMED: 340655815 (5) CHF (congestive heart failure), NYHA class IV ICD Codes: I50.9 - Heart failure, unspecified SNOMED: 133003878, 770112971 Assessment/Plan s/p PEG abd binder hold GTF for today will plan GTF tomorrow if stable Subjective ROS Limited/Unobtainable: No Allergies: Coded Allergies: VINCENT INHIBITORS (Verified Allergy, Mild, 08/06/17) SHELLFISH (Verified Allergy, Unknown, 07/01/11) Objective Last 24 Hour Vital Signs Date Time Temp Pulse Resp B/P (MAP) Pulse Ox O2 Delivery O2 Flow Rate FiO2 11/15/17 08:00 97.6 68 19 151/61 99 Nasal Cannula 2.0 97.6 11/15/17 08:00 75 11/15/17 06:45 70 20 99 Nasal Cannula 2.0 28 11/15/17 06:34 70 18 99 Nasal Cannula 2.0 11/15/17 06:34 Nasal Cannula 2.0 28 11/15/17 06:34 99 Nasal Cannula 2.0 28 11/15/17 05:38 68 141/64 11/15/17 04:00 97.3 68 20 141/64 99 Nasal Cannula 2.0 97.3 11/15/17 04:00 64 11/15/17 03:48 68 20 99 Nasal Cannula 2.0 28 11/15/17 03:38 68 18 97 Nasal Cannula 2.0 28 11/15/17 03:05 97.3 11/15/17 02:06 97.3 11/15/17 01:11 66 120/69 11/15/17 00:00 97.3 63 18 120/69 99 Nasal Cannula 2.0 97.3 11/15/17 00:00 66 11/14/17 23:35 70 20 98 Nasal Cannula 2.0 28 11/14/17 23:26 73 18 Nasal Cannula 2.0 28 11/14/17 23:24 73 18 97 Nasal Cannula 2.0 28 11/14/17 21:35 97.2 11/14/17 20:00 60 11/14/17 20:00 96.1 58 18 126/54 99 Nasal Cannula 2.0 96.1 11/14/17 19:51 66 18 99 Nasal Cannula 2.0 28 11/14/17 19:44 61 18 97 Nasal Cannula 2.0 11/14/17 19:44 97 Nasal Cannula 2.0 28 11/14/17 19:44 Nasal Cannula 2.0 28 11/14/17 19:35 97.2 11/14/17 18:39 97.2 11/14/17 18:39 61 130/70 11/14/17 18:36 97.2 11/14/17 16:00 97.5 61 20 130/70 99 Nasal Cannula 2.0 97.5 11/14/17 16:00 61 11/14/17 15:33 97.2 11/14/17 15:22 Nasal Cannula 11/14/17 15:22 Nasal Cannula 2.0 11/14/17 12:45 84 156/76 11/14/17 12:17 97.2 11/14/17 12:13 84 156/76 11/14/17 12:00 97.2 84 22 156/76 94 Nasal Cannula 2.0 97.2 11/14/17 12:00 77 11/14/17 11:55 70 18 99 Nasal Cannula 2.0 11/14/17 11:46 68 17 94 Nasal Cannula 2.0 Intake and Output 11/14/17 11/15/17 19:00 07:00 Output Total 200 ml 500 ml Balance -200 ml -500 ml Output Urine Total 200 ml 500 ml Laboratory Tests 11/15/17 06:10: White Blood Count 8.2, Red Blood Count 3.22L, Hemoglobin 9.5L, Hematocrit 29.8L , Mean Corpuscular Volume 93, Mean Corpuscular Hemoglobin 29.4, Mean Corpuscular Hemoglobin Concent 31.8L, Red Cell Distribution Width 14.8, Platelet Count 120L, Mean Platelet Volume 7.1, Neutrophils (%) (Auto) , Lymphocytes (%) (Auto) , Monocytes (%) (Auto) , Eosinophils (%) (Auto) , Basophils (%) (Auto) , Neutrophils % (Manual) [Pending], Lymphocytes % (Manual) [Pending], Platelet Estimate [Pending], Platelet Morphology [Pending], Prothrombin Time 14.8H, Prothromb Time International Ratio 1.4H, Activated Partial Thromboplast Time 33, Sodium Level 138, Potassium Level 4.3, Chloride Level 100, Carbon Dioxide Level 33H, Anion Gap 5, Blood Urea Nitrogen 61H, Creatinine 2.2H, Estimat Glomerular Filtration Rate , Glucose Level 146H, Calcium Level 8.6 Height (Feet): 5 Height (Inches): 7.00 Weight (Pounds): 129 General Appearance: lethargic EENT: normal ENT inspection Neck: supple Cardiovascular: normal rate Respiratory/Chest: decreased breath sounds Abdomen: hypoactive bowel sounds, distended Extremities: non-tender MARK STEVENSON Nov 15, 2017 10:04
--- NOTE | 2017-11-15 10:05 | Endoscopy Procedure Note ---
Endoscopy Procedure Note General Indication for Procedure: dysphagia Procedures Performed: EGD, PEG Operative Findings/Diagnosis: same Specimen: none Pt Tolerated Procedure Well: Yes Estimated Blood Loss: none Anesthesia Anesthesiologist: traci Anesthesia: MAC Inserted Devices Implant(s) used?: No GI Core Measures 50 yrs or older w/o bx or poly: Not Applicable 10yrs. F/U not recommended: Not Applicable MARK STEVENSON Nov 15, 2017 10:05
--- NOTE | 2017-11-15 10:16 | Immediate Post-Op Evaluation ---
Immediate Post-Op Evalulation Immediate Post-Op Evalulation Procedure: EGD/PEG Date of Evaluation: Nov 15, 2017 Time of Evaluation: 10:15 IV Fluids: 200 Blood Pressure Systolic: 135 Blood Pressure Diastolic: 52 Pulse Rate: 67 Respiratory Rate: 14 Temperature (Fahrenheit): 97.8 Pain Score (1-10): 0 Nausea: No Vomiting: No Patient Status: reacts, patent Hydration Status: adequate Drug: zosyn Given Within 1 Hr of Incision: Yes Time Given: 09:00 JACE TILLMAN CRNA Nov 15, 2017 10:16
--- NOTE | 2017-11-15 10:43 | Urology Progress Note ---
Assessment/Plan Assessment/Plan 1. Acute kidney injury. 2. BPH history. 3. Rule out neurogenic bladder. 4. Pyuria. 5. Hematuria. 6. Proteinuria. keep ashford indwelling I personally hand irrigated ash[place], minimal clots hand irrigate [place] PRN flomax, proscar, abx asa and lovenox held monitor renal fxn cysto later d/w nursing staff d/w Dr. Rubalcava Subjective Allergies: Coded Allergies: VINCENT INHIBITORS (Verified Allergy, Mild, 08/06/17) SHELLFISH (Verified Allergy, Unknown, 07/01/11) Subjective all noted, ashford draining well Objective Last 24 Hour Vital Signs Date Time Temp Pulse Resp B/P (MAP) Pulse Ox O2 Delivery O2 Flow Rate FiO2 11/15/17 10:16 208.0 67 14 11/15/17 10:15 64 22 146/85 100 Nasal Cannula 2.0 11/15/17 10:05 66 22 145/85 100 Nasal Cannula 2.0 11/15/17 10:00 61 22 133/82 100 Nasal Cannula 2.0 11/15/17 09:55 97.8 69 22 133/82 100 Nasal Cannula 2.0 97.8 11/15/17 08:00 97.6 68 19 151/61 99 Nasal Cannula 2.0 97.6 11/15/17 08:00 75 11/15/17 06:45 70 20 99 Nasal Cannula 2.0 28 11/15/17 06:34 70 18 99 Nasal Cannula 2.0 11/15/17 06:34 Nasal Cannula 2.0 28 11/15/17 06:34 99 Nasal Cannula 2.0 28 11/15/17 05:38 68 141/64 11/15/17 04:00 97.3 68 20 141/64 99 Nasal Cannula 2.0 97.3 11/15/17 04:00 64 11/15/17 03:48 68 20 99 Nasal Cannula 2.0 28 11/15/17 03:38 68 18 97 Nasal Cannula 2.0 28 11/15/17 03:05 97.3 11/15/17 02:06 97.3 11/15/17 01:11 66 120/69 11/15/17 00:00 97.3 63 18 120/69 99 Nasal Cannula 2.0 97.3 11/15/17 00:00 66 11/14/17 23:35 70 20 98 Nasal Cannula 2.0 28 11/14/17 23:26 73 18 Nasal Cannula 2.0 28 11/14/17 23:24 73 18 97 Nasal Cannula 2.0 28 11/14/17 21:35 97.2 11/14/17 20:00 60 11/14/17 20:00 96.1 58 18 126/54 99 Nasal Cannula 2.0 96.1 11/14/17 19:51 66 18 99 Nasal Cannula 2.0 28 11/14/17 19:44 61 18 97 Nasal Cannula 2.0 11/14/17 19:44 97 Nasal Cannula 2.0 28 11/14/17 19:44 Nasal Cannula 2.0 28 11/14/17 19:35 97.2 11/14/17 18:39 97.2 11/14/17 18:39 61 130/70 11/14/17 18:36 97.2 11/14/17 16:00 97.5 61 20 130/70 99 Nasal Cannula 2.0 97.5 11/14/17 16:00 61 11/14/17 15:33 97.2 11/14/17 15:22 Nasal Cannula 11/14/17 15:22 Nasal Cannula 2.0 11/14/17 12:45 84 156/76 11/14/17 12:17 97.2 11/14/17 12:13 84 156/76 11/14/17 12:00 97.2 84 22 156/76 94 Nasal Cannula 2.0 97.2 11/14/17 12:00 77 11/14/17 11:55 70 18 99 Nasal Cannula 2.0 11/14/17 11:46 68 17 94 Nasal Cannula 2.0 Intake and Output 11/14/17 11/15/17 19:00 07:00 Output Total 200 ml 500 ml Balance -200 ml -500 ml Output Urine Total 200 ml 500 ml Microbiology Date/Time Source Procedure Growth Status 11/09/17 10:15 Blood Blood Culture - Final NO GROWTH AFTER 5 DAYS Complete 11/12/17 11:02 Body Fluid Pleura, Rt Lung Gram Stain - Final Resulted 11/12/17 11:02 Body Fluid Pleura, Rt Lung Body Fluid Culture - Preliminary NO GROWTH AFTER 72 HOURS Resulted 11/12/17 22:30 Sputum Induced Gram Stain - Final Complete 11/12/17 22:30 Sputum Induced Sputum Culture - Final NORMAL UPPER RESPIRATORY DELMY PRESENT Complete Current Medications Medications (Trade) Dose Ordered Sig/Scot Route PRN Reason Start Time Stop Time Status Last Admin Dose Admin Acetaminophen/ Hydrocodone Bitart ([place] 7.5/325) 1 tab Q4H ORAL 11/13/17 22:30 11/20/17 22:29 11/15/17 02:06 Albuterol/ Ipratropium (Albuterol/ Ipratropium) 3 ml Q4HRT HHN 11/14/17 19:00 11/19/17 18:59 11/15/17 06:34 Dextrose (Dextrose 50%) STAT PRN IV Hypoglycemia 11/13/17 11:30 12/09/17 11:29 Diltiazem HCl (Cardizem) 60 mg EVERY 6 HOURS ORAL 11/13/17 18:00 12/13/17 17:59 11/15/17 05:38 Docusate Sodium (Colace) 100 mg EVERY 12 HOURS ORAL 11/13/17 21:00 12/09/17 20:59 11/14/17 12:22 Finasteride (Proscar) 5 mg DAILY ORAL 11/14/17 09:00 12/10/17 08:59 11/14/17 12:13 Lidocaine (Lidoderm 5% PATCH) 1 patch DAILY TDERMAL 11/14/17 09:00 12/10/17 08:59 11/14/17 10:26 Methylprednisolone Sodium Succinate (Solu-MEDROL) 40 mg EVERY 12 HOURS IVP 11/13/17 21:00 12/11/17 14:14 11/15/17 09:06 Metoprolol Succinate (Toprol XL) 50 mg DAILY ORAL 11/14/17 09:00 12/10/17 08:59 11/14/17 12:13 Nitroglycerin (Ntg) 0.4 mg Q5M X 3 DOSES PRN SL Prn Chest Pain 11/13/17 11:30 12/09/17 14:29 Pantoprazole (Protonix) 40 mg DAILY ORAL 11/14/17 09:00 12/10/17 08:59 11/14/17 12:45 Piperacillin Sod/ Tazobactam Sod 3.375 gm/Sodium Chloride 110 ml @ 27.5 mls/hr Q12HR IVPB 11/13/17 21:00 11/20/17 20:59 11/15/17 09:06 Polyethylene Glycol (Miralax) 17 gm HSPRN PRN ORAL Constipation 11/13/17 11:30 12/09/17 11:29 Sennosides (Senokot) 2 tab DAILY ORAL 11/14/17 09:00 12/09/17 14:29 11/14/17 12:22 Tamsulosin HCl (Flomax) 0.8 mg BEDTIME ORAL 11/13/17 21:00 12/09/17 20:59 11/14/17 21:35 Tizanidine HCl (Zanaflex) 2 mg THREE TIMES A DAY ORAL 11/13/17 13:00 12/09/17 19:59 11/14/17 18:36 Laboratory Tests 11/15/17 06:10: White Blood Count 8.2, Red Blood Count 3.22L, Hemoglobin 9.5L, Hematocrit 29.8L , Mean Corpuscular Volume 93, Mean Corpuscular Hemoglobin 29.4, Mean Corpuscular Hemoglobin Concent 31.8L, Red Cell Distribution Width 14.8, Platelet Count 120L, Mean Platelet Volume 7.1, Neutrophils (%) (Auto) , Lymphocytes (%) (Auto) , Monocytes (%) (Auto) , Eosinophils (%) (Auto) , Basophils (%) (Auto) , Neutrophils % (Manual) [Pending], Lymphocytes % (Manual) [Pending], Platelet Estimate [Pending], Platelet Morphology [Pending], Prothrombin Time 14.8H, Prothromb Time International Ratio 1.4H, Activated Partial Thromboplast Time 33, Sodium Level 138, Potassium Level 4.3, Chloride Level 100, Carbon Dioxide Level 33H, Anion Gap 5, Blood Urea Nitrogen 61H, Creatinine 2.2H, Estimat Glomerular Filtration Rate , Glucose Level 146H, Calcium Level 8.6 Height (Feet): 5 Height (Inches): 7.00 Weight (Pounds): 129 Objective exam shows ashford indwelling, urine is blood-tinged BANGSHADPAULINE Nov 15, 2017 10:43
[2017-11-15] MEDS: Docusate 100mg cap ORAL SCH ×2 (11:00→20:46)
[2017-11-15] MEDS: Sennosides 8.6mg ORAL SCH (11:00)
[2017-11-15] MEDS: Metoprolol Succinate XL 50mg tab ORAL SCH (11:00)
--- NOTE | 2017-11-15 11:46 | Diagnostic Imaging Report ---
Indication: Dyspnea Comparison: 11/12/2017 A single view chest radiograph was obtained. Findings: Pulmonary vascular congestion demonstrated bilaterally. The heart is enlarged. There is a right pleural effusion. NG tube is in good position. IMPRESSION: Worsening CHF. Right pleural effusion
--- NOTE | 2017-11-15 12:02 | 48 Hour Post Anesthesia Eval ---
Post Anesthesia Evaluation Procedure: EGD/PEG Date of Evaluation: Nov 15, 2017 Time of Evaluation: 12:00 Blood Pressure Systolic: 135 0: 85 Pulse Rate: 75 Respiratory Rate: 15 O2 Sat by Pulse Oximetry: 97 Airway: patent Nausea: No Vomiting: No Hydration Status: adequate Cardiopulmonary Status: stable Mental Status/LOC: patient returned to baseline Post-Anesthesia Complications: none JACE TILLMAN CRNA Nov 15, 2017 12:02
--- NOTE | 2017-11-15 14:15 | General Progress Note ---
Assessment/Plan Problem List: (1) Gait abnormality ICD Codes: R26.9 - Unspecified abnormalities of gait and mobility SNOMED: 23454611 (2) Pleural effusion ICD Codes: J90 - Pleural effusion, not elsewhere classified SNOMED: 29326208 (3) CHF (congestive heart failure), NYHA class IV ICD Codes: I50.9 - Heart failure, unspecified SNOMED: 874003093, 624061591 (4) Spinal stenosis ICD Codes: M48.00 - Spinal stenosis, site unspecified SNOMED: 10342063 Qualifiers: Qualified Codes: M48.061 - Spinal stenosis, lumbar region without neurogenic claudication (5) 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 ICD Codes: M51.26 - Other intervertebral disc displacement, lumbar region SNOMED: 47779988 (6) 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 ICD Codes: I69.922 - 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 SNOMED: 702282386 (7) COPD (chronic obstructive pulmonary disease) ICD Codes: J44.9 - Chronic obstructive pulmonary disease, unspecified SNOMED: 81772973 (8) Hyperkalemia ICD Codes: E87.5 - Hyperkalemia SNOMED: 62007997 (9) HELLEN (acute kidney injury) ICD Codes: N17.9 - Acute kidney failure, unspecified SNOMED: 99288031 (10) COPD exacerbation ICD Codes: J44.1 - Chronic obstructive pulmonary disease with (acute) exacerbation SNOMED: 157310179 (11) Urinary retention ICD Codes: R33.9 - Retention of urine, unspecified SNOMED: 100070010 (12) Bladder outlet obstruction ICD Codes: N32.0 - Bladder-neck obstruction SNOMED: 770205069 (13) Dysphagia ICD Codes: R13.10 - Dysphagia, unspecified SNOMED: 94027741, 153450409 Assessment/Plan high K dc K retaining meds,better lasix restart 3/2 , iv fluids as overdiuresis and hellen,stop now, steroids as asthma exacerbation, continue rx for back pain , zosyn for pneumonia, hematuria and hold anticoag, dysphagia , peg placed, hellen lab better Subjective Constitutional: Reports: weakness HEENT: Reports: no symptoms Cardiovascular: Reports: no symptoms Respiratory: Reports: cough, shortness of breath Gastrointestinal/Abdominal: Reports: difficulty swallowing Genitourinary: Reports: other - [place] Neurologic/Psychiatric: Reports: pre-existing deficit Endocrine: Reports: no symptoms Allergies: Coded Allergies: VINCENT INHIBITORS (Verified Allergy, Mild, 08/06/17) SHELLFISH (Verified Allergy, Unknown, 07/01/11) Subjective less cough, mod back pain Objective Last 24 Hour Vital Signs Date Time Temp Pulse Resp B/P (MAP) Pulse Ox O2 Delivery O2 Flow Rate FiO2 11/15/17 12:19 64 122/65 11/15/17 12:02 75 15 97 11/15/17 12:00 62 11/15/17 12:00 97.8 11/15/17 12:00 97.8 11/15/17 12:00 97.0 64 19 122/65 95 Nasal Cannula 2.0 97.0 11/15/17 11:04 97.8 11/15/17 11:01 75 20 99 Nasal Cannula 2.0 28 11/15/17 11:01 97.8 11/15/17 11:00 71 135/52 11/15/17 10:45 71 18 98 Nasal Cannula 2.0 11/15/17 10:16 208.0 67 14 11/15/17 10:15 64 22 146/85 100 Nasal Cannula 2.0 11/15/17 10:05 66 22 145/85 100 Nasal Cannula 2.0 11/15/17 10:00 61 22 133/82 100 Nasal Cannula 2.0 11/15/17 09:55 97.8 69 22 133/82 100 Nasal Cannula 2.0 97.8 11/15/17 08:00 97.6 68 19 151/61 99 Nasal Cannula 2.0 97.6 11/15/17 08:00 75 11/15/17 06:45 70 20 99 Nasal Cannula 2.0 28 11/15/17 06:34 70 18 99 Nasal Cannula 2.0 11/15/17 06:34 Nasal Cannula 2.0 28 11/15/17 06:34 99 Nasal Cannula 2.0 28 11/15/17 05:38 68 141/64 11/15/17 04:00 97.3 68 20 141/64 99 Nasal Cannula 2.0 97.3 11/15/17 04:00 64 11/15/17 03:48 68 20 99 Nasal Cannula 2.0 28 11/15/17 03:38 68 18 97 Nasal Cannula 2.0 28 11/15/17 02:06 97.3 11/15/17 01:11 66 120/69 11/15/17 00:00 97.3 63 18 120/69 99 Nasal Cannula 2.0 97.3 11/15/17 00:00 66 11/14/17 23:35 70 20 98 Nasal Cannula 2.0 28 11/14/17 23:26 73 18 Nasal Cannula 2.0 28 11/14/17 23:24 73 18 97 Nasal Cannula 2.0 28 11/14/17 21:35 97.2 11/14/17 20:00 60 11/14/17 20:00 96.1 58 18 126/54 99 Nasal Cannula 2.0 96.1 11/14/17 19:51 66 18 99 Nasal Cannula 2.0 28 11/14/17 19:44 61 18 97 Nasal Cannula 2.0 11/14/17 19:44 97 Nasal Cannula 2.0 28 11/14/17 19:44 Nasal Cannula 2.0 28 11/14/17 18:39 97.2 11/14/17 18:39 61 130/70 11/14/17 18:36 97.2 11/14/17 16:00 97.5 61 20 130/70 99 Nasal Cannula 2.0 97.5 11/14/17 16:00 61 11/14/17 15:33 97.2 11/14/17 15:22 Nasal Cannula 11/14/17 15:22 Nasal Cannula 2.0 Intake and Output 11/14/17 11/15/17 19:00 07:00 Intake Total 110.0 ml Output Total 200 ml 500 ml Balance -90.0 ml -500 ml IV Total 110.0 ml Output Urine Total 200 ml 500 ml Laboratory Tests 11/15/17 06:10: White Blood Count 8.2, Red Blood Count 3.22L, Hemoglobin 9.5L, Hematocrit 29.8L , Mean Corpuscular Volume 93, Mean Corpuscular Hemoglobin 29.4, Mean Corpuscular Hemoglobin Concent 31.8L, Red Cell Distribution Width 14.8, Platelet Count 120L, Mean Platelet Volume 7.1, Neutrophils (%) (Auto) , Lymphocytes (%) (Auto) , Monocytes (%) (Auto) , Eosinophils (%) (Auto) , Basophils (%) (Auto) , Differential Total Cells Counted 100, Neutrophils % ( Manual) 92H, Lymphocytes % (Manual) 6L, Monocytes % (Manual) 2, Eosinophils % ( Manual) 0, Basophils % (Manual) 0, Band Neutrophils 0, Platelet Estimate DecreasedL, Platelet Morphology Normal, Anisocytosis 1+, Prothrombin Time 14.8H , Prothromb Time International Ratio 1.4H, Activated Partial Thromboplast Time 33, Sodium Level 138, Potassium Level 4.3, Chloride Level 100, Carbon Dioxide Level 33H, Anion Gap 5, Blood Urea Nitrogen 61H, Creatinine 2.2H, Estimat Glomerular Filtration Rate , Glucose Level 146H, Calcium Level 8.6, Hepatitis A IgM Antibody [Pending], Hepatitis B Surface Antigen [Pending], Hepatitis B Core IgM Antibody [Pending], Hepatitis C Antibody [Pending], HIV (1&2) Antibody Rapid Negative Height (Feet): 5 Height (Inches): 7.00 Weight (Pounds): 129 General Appearance: mild distress EENT: normal ENT inspection Neck: normal alignment Cardiovascular: regular rhythm Respiratory/Chest: rhonchi - bilaterally Abdomen: other - new Peg Edema: mild edema 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
--- NOTE | 2017-11-15 15:15 | Pulmonology Progress Note ---
Assessment/Plan Assessment/Plan COPD, systolic and diastolic CHF, pulm HTN, pacemaker, atrial fibrillation, past stroke with dysarthria, aphasia prostate cancer. Hyperkalemia pleural effusion PLAN: The patient will continue on congestive heart failure regimen Respiratory treatments and steroids will be continued. On Solumedrol 40 mg IV q 12 Thoracentesis was performed ; 50 ml fluid removed. Renal and electrolyte management per renal latest chest x-ray shows right pleural effusion. He is doing well on nasal oxygen. I would hold off on further thoracentesis Subjective Interval Events: Reyes catheter issues noted; urology notes reviewed. Constitutional: Reports: no symptoms HEENT: Repors: no symptoms Respiratory: Reports: dry cough, shortness of breath Cardiovascular: Reports: no symptoms Gastrointestinal/Abdominal: Reports: no symptoms Allergies: Coded Allergies: VINCENT INHIBITORS (Verified Allergy, Mild, 08/06/17) SHELLFISH (Verified Allergy, Unknown, 07/01/11) Objective Last 24 Hour Vital Signs Date Time Temp Pulse Resp B/P (MAP) Pulse Ox O2 Delivery O2 Flow Rate FiO2 11/15/17 14:49 97.8 11/15/17 14:45 72 20 98 Nasal Cannula 2.0 28 11/15/17 14:34 69 18 97 Nasal Cannula 2.0 28 11/15/17 12:19 64 122/65 11/15/17 12:02 75 15 97 11/15/17 12:00 62 11/15/17 12:00 97.8 11/15/17 12:00 97.8 11/15/17 12:00 97.0 64 19 122/65 95 Nasal Cannula 2.0 97.0 11/15/17 11:04 97.8 11/15/17 11:01 75 20 99 Nasal Cannula 2.0 28 11/15/17 11:01 97.8 11/15/17 11:00 71 135/52 11/15/17 10:45 71 18 98 Nasal Cannula 2.0 11/15/17 10:16 208.0 67 14 11/15/17 10:15 64 22 146/85 100 Nasal Cannula 2.0 11/15/17 10:05 66 22 145/85 100 Nasal Cannula 2.0 11/15/17 10:00 61 22 133/82 100 Nasal Cannula 2.0 11/15/17 09:55 97.8 69 22 133/82 100 Nasal Cannula 2.0 97.8 11/15/17 08:00 97.6 68 19 151/61 99 Nasal Cannula 2.0 97.6 11/15/17 08:00 75 11/15/17 06:45 70 20 99 Nasal Cannula 2.0 28 11/15/17 06:34 70 18 99 Nasal Cannula 2.0 11/15/17 06:34 Nasal Cannula 2.0 28 11/15/17 06:34 99 Nasal Cannula 2.0 28 11/15/17 05:38 68 141/64 11/15/17 04:00 97.3 68 20 141/64 99 Nasal Cannula 2.0 97.3 11/15/17 04:00 64 11/15/17 03:48 68 20 99 Nasal Cannula 2.0 28 11/15/17 03:38 68 18 97 Nasal Cannula 2.0 28 11/15/17 02:06 97.3 11/15/17 01:11 66 120/69 11/15/17 00:00 97.3 63 18 120/69 99 Nasal Cannula 2.0 97.3 11/15/17 00:00 66 11/14/17 23:35 70 20 98 Nasal Cannula 2.0 28 11/14/17 23:26 73 18 Nasal Cannula 2.0 28 11/14/17 23:24 73 18 97 Nasal Cannula 2.0 28 11/14/17 21:35 97.2 11/14/17 20:00 60 11/14/17 20:00 96.1 58 18 126/54 99 Nasal Cannula 2.0 96.1 11/14/17 19:51 66 18 99 Nasal Cannula 2.0 28 11/14/17 19:44 61 18 97 Nasal Cannula 2.0 11/14/17 19:44 97 Nasal Cannula 2.0 28 11/14/17 19:44 Nasal Cannula 2.0 28 11/14/17 18:39 97.2 11/14/17 18:39 61 130/70 11/14/17 18:36 97.2 11/14/17 16:00 97.5 61 20 130/70 99 Nasal Cannula 2.0 97.5 11/14/17 16:00 61 11/14/17 15:33 97.2 11/14/17 15:22 Nasal Cannula 11/14/17 15:22 Nasal Cannula 2.0 Intake and Output 11/14/17 11/15/17 19:00 07:00 Intake Total 110.0 ml Output Total 200 ml 500 ml Balance -90.0 ml -500 ml IV Total 110.0 ml Output Urine Total 200 ml 500 ml General Appearance: no acute distress HEENT: normocephalic Respiratory/Chest: chest wall non-tender, decreased breath sounds Cardiovascular: normal peripheral pulses, normal rate Microbiology Date/Time Source Procedure Growth Status 11/12/17 22:30 Sputum Induced Gram Stain - Final Complete 11/12/17 22:30 Sputum Induced Sputum Culture - Final NORMAL UPPER RESPIRATORY DELMY PRESENT Complete 11/12/17 17:40 Nasal Nares MRSA Culture - Final NO METHICILLIN RESISTANT STAPH AUREUS... Complete Laboratory Tests 11/15/17 06:10: White Blood Count 8.2, Red Blood Count 3.22L, Hemoglobin 9.5L, Hematocrit 29.8L , Mean Corpuscular Volume 93, Mean Corpuscular Hemoglobin 29.4, Mean Corpuscular Hemoglobin Concent 31.8L, Red Cell Distribution Width 14.8, Platelet Count 120L, Mean Platelet Volume 7.1, Neutrophils (%) (Auto) , Lymphocytes (%) (Auto) , Monocytes (%) (Auto) , Eosinophils (%) (Auto) , Basophils (%) (Auto) , Differential Total Cells Counted 100, Neutrophils % ( Manual) 92H, Lymphocytes % (Manual) 6L, Monocytes % (Manual) 2, Eosinophils % ( Manual) 0, Basophils % (Manual) 0, Band Neutrophils 0, Platelet Estimate DecreasedL, Platelet Morphology Normal, Anisocytosis 1+, Prothrombin Time 14.8H , Prothromb Time International Ratio 1.4H, Activated Partial Thromboplast Time 33, Sodium Level 138, Potassium Level 4.3, Chloride Level 100, Carbon Dioxide Level 33H, Anion Gap 5, Blood Urea Nitrogen 61H, Creatinine 2.2H, Estimat Glomerular Filtration Rate , Glucose Level 146H, Calcium Level 8.6, Hepatitis A IgM Antibody [Pending], Hepatitis B Surface Antigen [Pending], Hepatitis B Core IgM Antibody [Pending], Hepatitis C Antibody [Pending], HIV (1&2) Antibody Rapid Negative Current Medications Medications (Trade) Dose Ordered Sig/Scot Route PRN Reason Start Time Stop Time Status Last Admin Dose Admin Acetaminophen/ Hydrocodone Bitart ([place] 7.5/325) 1 tab Q4H ORAL 11/13/17 22:30 11/20/17 22:29 11/15/17 14:49 Albuterol/ Ipratropium (Albuterol/ Ipratropium) 3 ml Q4HRT HHN 11/14/17 19:00 11/19/17 18:59 11/15/17 14:34 Dextrose (Dextrose 50%) STAT PRN IV Hypoglycemia 11/13/17 11:30 12/09/17 11:29 Diltiazem HCl (Cardizem) 60 mg EVERY 6 HOURS ORAL 11/13/17 18:00 12/13/17 17:59 11/15/17 12:19 Docusate Sodium (Colace) 100 mg EVERY 12 HOURS ORAL 11/13/17 21:00 12/09/17 20:59 11/15/17 11:00 Finasteride (Proscar) 5 mg DAILY ORAL 11/14/17 09:00 12/10/17 08:59 11/15/17 11:00 Furosemide (Lasix) 40 mg DAILY IV 11/15/17 14:30 12/15/17 14:29 11/15/17 14:48 Lidocaine (Lidoderm 5% PATCH) 1 patch DAILY TDERMAL 11/14/17 09:00 12/10/17 08:59 11/15/17 11:03 Methylprednisolone Sodium Succinate (Solu-MEDROL) 40 mg EVERY 12 HOURS IVP 11/13/17 21:00 12/11/17 14:14 11/15/17 09:06 Metoprolol Succinate (Toprol XL) 50 mg DAILY ORAL 11/14/17 09:00 12/10/17 08:59 11/15/17 11:00 Nitroglycerin (Ntg) 0.4 mg Q5M X 3 DOSES PRN SL Prn Chest Pain 11/13/17 11:30 12/09/17 14:29 Pantoprazole (Protonix) 40 mg DAILY ORAL 11/14/17 09:00 12/10/17 08:59 11/15/17 11:03 Piperacillin Sod/ Tazobactam Sod 3.375 gm/Sodium Chloride 110 ml @ 27.5 mls/hr Q8HR IVPB 11/15/17 15:00 11/22/17 14:59 Polyethylene Glycol (Miralax) 17 gm HSPRN PRN ORAL Constipation 11/13/17 11:30 12/09/17 11:29 Sennosides (Senokot) 2 tab DAILY ORAL 11/14/17 09:00 12/09/17 14:29 11/15/17 11:00 Tamsulosin HCl (Flomax) 0.8 mg BEDTIME ORAL 11/13/17 21:00 12/09/17 20:59 11/14/17 21:35 Tizanidine HCl (Zanaflex) 2 mg THREE TIMES A DAY ORAL 11/13/17 13:00 12/09/17 19:59 11/15/17 11:04 Davy Smith MD Nov 15, 2017 15:15
--- NOTE | 2017-11-15 15:45 | Procedure Note ---
DATE OF PROCEDURE: 11/15/2017 SURGEON: Jaycob Kelly M.D. PROCEDURE: Upper endoscopy with PEG placement. ANESTHESIA: Per Ruth ROSAS. INSTRUMENT: Olympus adult flexible upper endoscope. INDICATION: Dysphagia and failure to thrive. The procedure, risks, benefits, and possible consequences, including hemorrhage, aspiration, perforation and infection, and alternative treatments, were explained to the patient/legal guardian by Dr. Jaycob Kelly and the patient/legal guardian understood and accepted these risks. DESCRIPTION OF PROCEDURE: After informed consent was obtained and the patient was adequately sedated, Olympus upper endoscope was advanced from mouth to the second portion of duodenum and retroflexion was performed in the stomach. The patient has evidence of diffuse gastritis. Given the patient's current medical condition, we did not do a biopsy and wanted to finished this procedure as fast as possible. Then, under endoscopic guidance, under sterile condition, a 20-English pull type of G-tube was successfully placed in the epigastric area. The distance from the tip of the tube to skin was about 2.5 cm in size. The patient tolerated the procedure very well without any complication. SUMMARY OF FINDINGS: 1. Gastritis. 2. Status post successful PEG placement. RECOMMENDATIONS: Abdominal binder. Elevate the head of the bed at all times. G-tube flush. G-tube care. We will start the tube feeding tomorrow if patient is stable. I want to thank Dr. Rubalcava for this kind referral. Jaycob Kelly M.D. DR: VIKTORIYA JOB#: [id number] CC: Martinez Rubalcava M.D.; Fax#: [phone]
[2017-11-15] MEDS: Tamsulosin 0.4mg cap ORAL SCH (20:46)
[2017-11-16] VITALS: BP 142/69
[2017-11-16] MEDS: dilTIAZem HCl 60mg tab ORAL SCH ×4 (00:26→17:50)
[2017-11-16] MEDS: HYDROcodone/Acetamin 7.5/325 tab ORAL SCH ×6 (02:30→22:30)
[2017-11-16] MEDS: Albuterol/Ipratropium 3ml neb HHN SCH ×6 (03:31→23:16)
[2017-11-16 04:00] VITALS: BP 146/89
[2017-11-16] MEDS: Piperacillin/Tazobactam 3.375 GM in NS 110 ML IVPB SCH ×3 (05:53→21:46)
[2017-11-16 08:00] VITALS: BP 131/73
[2017-11-16 08:05] LABS: HEMATOCRIT 30.5 % (42.0-52.0); HEMOGLOBIN 9.9 G/DL (14.2-18.0); MEAN CORPUSCULAR VOLUME 93 FL (80-99); PLATELET COUNT 114 K/UL (150-450); RED BLOOD COUNT 3.27 M/UL (4.70-6.10); RED CELL DISTRIBUTION WIDTH 14.3 % (11.6-14.8); WHITE BLOOD COUNT 7.9 K/UL (4.8-10.8)
[2017-11-16 08:30] LABS: ANION GAP 4 mmol/L (5-15); BLOOD UREA NITROGEN 48 mg/dL (7-18); CALCIUM 9.1 MG/DL (8.5-10.1); CARBON DIOXIDE 35 MMOL/L (21-32); CHLORIDE 103 MMOL/L (98-107); CREATININE 1.6 MG/DL (0.55-1.30); PHOSPHORUS 3.4 MG/DL (2.5-4.9); POTASSIUM 4.1 MMOL/L (3.5-5.1); SODIUM 142 MMOL/L (136-145)
[2017-11-16] MEDS: Sennosides 8.6mg ORAL SCH (09:20)
[2017-11-16] MEDS: Metoprolol Succinate XL 50mg tab ORAL SCH (09:21)
[2017-11-16] MEDS: Docusate 100mg cap ORAL SCH ×2 (09:21→21:30)
[2017-11-16] MEDS: Solu-MEDROL 40mg Inj IVP SCH ×2 (09:22→21:29)
--- NOTE | 2017-11-16 10:24 | Urology Progress Note ---
Assessment/Plan Assessment/Plan 1. Acute kidney injury. 2. BPH history. 3. Rule out neurogenic bladder. 4. Pyuria. 5. Hematuria. 6. Proteinuria. keep ashford indwelling I personally hand irrigated ashford, minimal clots hand irrigate ashford PRN flomax, proscar, abx asa and lovenox held monitor renal fxn cysto later d/w nursing staff Subjective Allergies: Coded Allergies: VINCENT INHIBITORS (Verified Allergy, Mild, 08/06/17) SHELLFISH (Verified Allergy, Unknown, 07/01/11) Subjective all noted, ashford draining well, nurses hand irrigate PRN Objective Last 24 Hour Vital Signs Date Time Temp Pulse Resp B/P (MAP) Pulse Ox O2 Delivery O2 Flow Rate FiO2 11/16/17 09:21 97.7 11/16/17 09:21 61 131/73 11/16/17 08:00 97.7 61 19 131/73 98 97.7 11/16/17 06:58 62 18 99 Nasal Cannula 2.0 28 11/16/17 06:46 60 16 98 Nasal Cannula 2.0 28 11/16/17 06:46 Nasal Cannula 2.0 28 11/16/17 06:46 98 Nasal Cannula 2.0 28 11/16/17 05:52 75 146/89 11/16/17 04:00 97.7 66 18 146/89 98 Nasal Cannula 2.0 97.7 11/16/17 04:00 75 11/16/17 03:41 64 18 99 Nasal Cannula 2.0 28 11/16/17 03:31 66 18 98 Nasal Cannula 2.0 28 11/16/17 00:26 78 143/87 11/16/17 00:00 97.7 69 20 142/69 98 Nasal Cannula 2.0 97.7 11/16/17 00:00 64 11/15/17 23:34 61 18 99 Nasal Cannula 2.0 28 11/15/17 23:24 61 18 98 Nasal Cannula 2.0 28 11/15/17 20:17 64 18 99 Nasal Cannula 2.0 28 11/15/17 20:03 61 18 97 Nasal Cannula 2.0 28 11/15/17 20:03 Nasal Cannula 2.0 28 11/15/17 20:03 97 Nasal Cannula 2.0 28 11/15/17 20:00 96.8 63 20 126/65 98 Nasal Cannula 2.0 96.8 11/15/17 20:00 66 11/15/17 18:17 97.2 11/15/17 18:17 62 139/63 11/15/17 18:16 97.2 11/15/17 16:00 62 11/15/17 16:00 97.2 63 19 139/63 98 Nasal Cannula 2.0 97.2 11/15/17 15:48 97.8 11/15/17 14:49 97.8 11/15/17 14:45 72 20 98 Nasal Cannula 2.0 28 11/15/17 14:34 69 18 97 Nasal Cannula 2.0 28 11/15/17 12:19 64 122/65 11/15/17 12:02 75 15 97 11/15/17 12:00 62 11/15/17 12:00 97.8 11/15/17 12:00 97.0 64 19 122/65 95 Nasal Cannula 2.0 97.0 11/15/17 11:04 97.8 11/15/17 11:01 75 20 99 Nasal Cannula 2.0 28 11/15/17 11:01 97.8 11/15/17 11:00 71 135/52 11/15/17 10:45 71 18 98 Nasal Cannula 2.0 Intake and Output 11/15/17 11/16/17 19:00 07:00 Intake Total 360.1 ml 27.5 ml Output Total 350 ml 800 ml Balance 10.1 ml -772.5 ml IV Total 360.1 ml 27.5 ml Output Urine Total 350 ml 800 ml # Bowel Movements 2 Microbiology Date/Time Source Procedure Growth Status 11/09/17 10:15 Blood Blood Culture - Final NO GROWTH AFTER 5 DAYS Complete 11/12/17 11:02 Body Fluid Pleura, Rt Lung Gram Stain - Final Complete 11/12/17 11:02 Body Fluid Pleura, Rt Lung Body Fluid Culture - Final NO GROWTH Complete 11/12/17 22:30 Sputum Induced Gram Stain - Final Complete 11/12/17 22:30 Sputum Induced Sputum Culture - Final NORMAL UPPER RESPIRATORY DELMY PRESENT Complete Current Medications Medications (Trade) Dose Ordered Sig/Scot Route PRN Reason Start Time Stop Time Status Last Admin Dose Admin Acetaminophen/ Hydrocodone Bitart ([place] 7.5/325) 1 tab Q4H ORAL 11/13/17 22:30 3/7/18 22:29 11/15/17 22:45 Albuterol/ Ipratropium (Albuterol/ Ipratropium) 3 ml Q4HRT HHN 11/14/17 19:00 11/19/17 18:59 11/16/17 06:46 Dextrose (Dextrose 50%) STAT PRN IV Hypoglycemia 11/13/17 11:30 12/09/17 11:29 Diltiazem HCl (Cardizem) 60 mg EVERY 6 HOURS ORAL 11/13/17 18:00 12/13/17 17:59 11/16/17 05:52 Docusate Sodium (Colace) 100 mg EVERY 12 HOURS ORAL 11/13/17 21:00 12/09/17 20:59 11/16/17 09:21 Finasteride (Proscar) 5 mg DAILY ORAL 11/14/17 09:00 12/10/17 08:59 11/16/17 09:22 Furosemide (Lasix) 40 mg DAILY IV 11/15/17 14:30 12/15/17 14:29 11/16/17 09:22 Lidocaine (Lidoderm 5% PATCH) 1 patch DAILY TDERMAL 11/14/17 09:00 12/10/17 08:59 11/16/17 09:22 Methylprednisolone Sodium Succinate (Solu-MEDROL) 40 mg EVERY 12 HOURS IVP 11/13/17 21:00 12/11/17 14:14 11/16/17 09:22 Metoprolol Succinate (Toprol XL) 50 mg DAILY ORAL 11/14/17 09:00 12/10/17 08:59 11/16/17 09:21 Nitroglycerin (Ntg) 0.4 mg Q5M X 3 DOSES PRN SL Prn Chest Pain 11/13/17 11:30 12/09/17 14:29 Pantoprazole (Protonix) 40 mg DAILY ORAL 11/14/17 09:00 12/10/17 08:59 11/16/17 09:21 Piperacillin Sod/ Tazobactam Sod 3.375 gm/Sodium Chloride 110 ml @ 27.5 mls/hr Q8HR IVPB 11/15/17 15:00 11/22/17 14:59 11/16/17 05:53 Polyethylene Glycol (Miralax) 17 gm HSPRN PRN ORAL Constipation 11/13/17 11:30 12/09/17 11:29 Sennosides (Senokot) 2 tab DAILY ORAL 11/14/17 09:00 12/09/17 14:29 11/16/17 09:20 Tamsulosin HCl (Flomax) 0.8 mg BEDTIME ORAL 11/13/17 21:00 12/09/17 20:59 11/15/17 20:46 Tizanidine HCl (Zanaflex) 2 mg THREE TIMES A DAY ORAL 11/13/17 13:00 12/09/17 19:59 11/16/17 09:21 Laboratory Tests 11/16/17 06:40: White Blood Count 7.9, Red Blood Count 3.27L, Hemoglobin 9.9L, Hematocrit 30.5L , Mean Corpuscular Volume 93, Mean Corpuscular Hemoglobin 30.1, Mean Corpuscular Hemoglobin Concent 32.3, Red Cell Distribution Width 14.3, Platelet Count 114L, Mean Platelet Volume 8.8, Neutrophils (%) (Auto) , Lymphocytes (%) ( Auto) , Monocytes (%) (Auto) , Eosinophils (%) (Auto) , Basophils (%) (Auto) , Differential Total Cells Counted 100, Neutrophils % (Manual) 94H, Lymphocytes % (Manual) 2L, Monocytes % (Manual) 4, Eosinophils % (Manual) 0, Basophils % ( Manual) 0, Band Neutrophils 0, Platelet Estimate DecreasedL, Platelet Morphology Normal, Hypochromasia 2+, Sodium Level 142, Potassium Level 4.1, Chloride Level 103, Carbon Dioxide Level 35H, Anion Gap 4L, Blood Urea Nitrogen 48H, Creatinine 1.6H, Estimat Glomerular Filtration Rate , Glucose Level 141H, Calcium Level 9.1, Phosphorus Level 3.4 Height (Feet): 5 Height (Inches): 7.00 Weight (Pounds): 128 Objective exam shows ashford indwelling, urine is marilu/blood-tinged PAULINE MUNOZ Nov 16, 2017 10:24
--- NOTE | 2017-11-16 11:12 | General Progress Note ---
Assessment/Plan Problem List: (1) Gait abnormality ICD Codes: R26.9 - Unspecified abnormalities of gait and mobility SNOMED: 31751671 (2) Pleural effusion ICD Codes: J90 - Pleural effusion, not elsewhere classified SNOMED: 33896199 (3) CHF (congestive heart failure), NYHA class IV ICD Codes: I50.9 - Heart failure, unspecified SNOMED: 118864149, 224019920 (4) Spinal stenosis ICD Codes: M48.00 - Spinal stenosis, site unspecified SNOMED: 06701821 Qualifiers: Qualified Codes: M48.061 - Spinal stenosis, lumbar region without neurogenic claudication (5) 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 ICD Codes: M51.26 - Other intervertebral disc displacement, lumbar region SNOMED: 32426142 (6) 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 ICD Codes: I69.922 - 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 SNOMED: 076001473 (7) COPD (chronic obstructive pulmonary disease) ICD Codes: J44.9 - Chronic obstructive pulmonary disease, unspecified SNOMED: 59932046 (8) Hyperkalemia ICD Codes: E87.5 - Hyperkalemia SNOMED: 31793498 (9) HELLEN (acute kidney injury) ICD Codes: N17.9 - Acute kidney failure, unspecified SNOMED: 41650172 (10) COPD exacerbation ICD Codes: J44.1 - Chronic obstructive pulmonary disease with (acute) exacerbation SNOMED: 150356619 (11) Urinary retention ICD Codes: R33.9 - Retention of urine, unspecified SNOMED: 631840586 (12) Bladder outlet obstruction ICD Codes: N32.0 - Bladder-neck obstruction SNOMED: 896750335 (13) Dysphagia ICD Codes: R13.10 - Dysphagia, unspecified SNOMED: 63046983, 759974617 Assessment/Plan high K dc K retaining meds,better lasix restart 11/15 , iv fluids as overdiuresis and hellen,stop now, steroids as asthma exacerbation, continue rx for back pain , zosyn for pneumonia, hematuria and hold anticoag, dysphagia , peg placed, hellen lab better, dc plan for CV [place] on 11/18 if stable, check with dr aldana 11/18 if ashford can be removed Subjective Constitutional: Reports: weakness HEENT: Reports: no symptoms Cardiovascular: Reports: no symptoms Respiratory: Reports: cough, shortness of breath Gastrointestinal/Abdominal: Reports: no symptoms Genitourinary: Reports: incontinence Neurologic/Psychiatric: Reports: pre-existing deficit Endocrine: Reports: no symptoms Hematologic/Lymphatic: Reports: no symptoms Allergies: Coded Allergies: VINCENT INHIBITORS (Verified Allergy, Mild, 08/06/17) SHELLFISH (Verified Allergy, Unknown, 07/01/11) Subjective less cough, mod back pain Objective Last 24 Hour Vital Signs Date Time Temp Pulse Resp B/P (MAP) Pulse Ox O2 Delivery O2 Flow Rate FiO2 11/16/17 09:21 97.7 11/16/17 09:21 61 131/73 11/16/17 08:00 97.7 61 19 131/73 98 97.7 11/16/17 08:00 68 11/16/17 06:58 62 18 99 Nasal Cannula 2.0 28 11/16/17 06:46 60 16 98 Nasal Cannula 2.0 28 11/16/17 06:46 Nasal Cannula 2.0 28 11/16/17 06:46 98 Nasal Cannula 2.0 28 11/16/17 05:52 75 146/89 11/16/17 04:00 97.7 66 18 146/89 98 Nasal Cannula 2.0 97.7 11/16/17 04:00 75 11/16/17 03:41 64 18 99 Nasal Cannula 2.0 28 11/16/17 03:31 66 18 98 Nasal Cannula 2.0 28 11/16/17 00:26 78 143/87 11/16/17 00:00 97.7 69 20 142/69 98 Nasal Cannula 2.0 97.7 11/16/17 00:00 64 11/15/17 23:34 61 18 99 Nasal Cannula 2.0 28 11/15/17 23:24 61 18 98 Nasal Cannula 2.0 28 11/15/17 20:17 64 18 99 Nasal Cannula 2.0 28 11/15/17 20:03 61 18 97 Nasal Cannula 2.0 28 11/15/17 20:03 Nasal Cannula 2.0 28 11/15/17 20:03 97 Nasal Cannula 2.0 28 11/15/17 20:00 96.8 63 20 126/65 98 Nasal Cannula 2.0 96.8 11/15/17 20:00 66 11/15/17 18:17 97.2 11/15/17 18:17 62 139/63 11/15/17 18:16 97.2 11/15/17 16:00 62 11/15/17 16:00 97.2 63 19 139/63 98 Nasal Cannula 2.0 97.2 11/15/17 15:48 97.8 11/15/17 14:49 97.8 11/15/17 14:45 72 20 98 Nasal Cannula 2.0 28 11/15/17 14:34 69 18 97 Nasal Cannula 2.0 28 11/15/17 12:19 64 122/65 11/15/17 12:02 75 15 97 11/15/17 12:00 62 11/15/17 12:00 97.8 11/15/17 12:00 97.0 64 19 122/65 95 Nasal Cannula 2.0 97.0 Intake and Output 11/15/17 11/16/17 19:00 07:00 Intake Total 360.1 ml 27.5 ml Output Total 350 ml 800 ml Balance 10.1 ml -772.5 ml IV Total 360.1 ml 27.5 ml Output Urine Total 350 ml 800 ml # Bowel Movements 2 Laboratory Tests 11/16/17 06:40: White Blood Count 7.9, Red Blood Count 3.27L, Hemoglobin 9.9L, Hematocrit 30.5L , Mean Corpuscular Volume 93, Mean Corpuscular Hemoglobin 30.1, Mean Corpuscular Hemoglobin Concent 32.3, Red Cell Distribution Width 14.3, Platelet Count 114L, Mean Platelet Volume 8.8, Neutrophils (%) (Auto) , Lymphocytes (%) ( Auto) , Monocytes (%) (Auto) , Eosinophils (%) (Auto) , Basophils (%) (Auto) , Differential Total Cells Counted 100, Neutrophils % (Manual) 94H, Lymphocytes % (Manual) 2L, Monocytes % (Manual) 4, Eosinophils % (Manual) 0, Basophils % ( Manual) 0, Band Neutrophils 0, Platelet Estimate DecreasedL, Platelet Morphology Normal, Hypochromasia 2+, Sodium Level 142, Potassium Level 4.1, Chloride Level 103, Carbon Dioxide Level 35H, Anion Gap 4L, Blood Urea Nitrogen 48H, Creatinine 1.6H, Estimat Glomerular Filtration Rate , Glucose Level 141H, Calcium Level 9.1, Phosphorus Level 3.4 Height (Feet): 5 Height (Inches): 7.00 Weight (Pounds): 128 General Appearance: alert, mild distress EENT: normal ENT inspection Neck: normal alignment Cardiovascular: regular rhythm Respiratory/Chest: rhonchi - bilaterally Abdomen: non tender, soft Extremities: no calf tenderness Edema: trace edema 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
[2017-11-16 12:00] VITALS: BP 132/58
--- NOTE | 2017-11-16 12:13 | Pulmonology Progress Note ---
Assessment/Plan Assessment/Plan COPD, systolic and diastolic CHF, pulm HTN, pacemaker, atrial fibrillation, past stroke with dysarthria, aphasia prostate cancer. Hyperkalemia pleural effusion PLAN: The patient will continue on congestive heart failure regimen Respiratory treatments and steroids will be continued. On Solumedrol 40 mg IV q 12 Thoracentesis was performed ; 50 ml fluid removed. Renal and electrolyte management per renal latest chest x-ray shows right pleural effusion. He is doing well on nasal oxygen. I would hold off on further thoracentesis Subjective Interval Events: None reported Constitutional: Reports: no symptoms HEENT: Repors: no symptoms Respiratory: Reports: no symptoms Cardiovascular: Reports: no symptoms Gastrointestinal/Abdominal: Reports: no symptoms Allergies: Coded Allergies: VINCENT INHIBITORS (Verified Allergy, Mild, 08/06/17) SHELLFISH (Verified Allergy, Unknown, 07/01/11) Objective Last 24 Hour Vital Signs Date Time Temp Pulse Resp B/P (MAP) Pulse Ox O2 Delivery O2 Flow Rate FiO2 11/16/17 11:30 63 16 99 Nasal Cannula 2.0 28 11/16/17 11:20 62 15 98 Nasal Cannula 2.0 28 11/16/17 09:21 97.7 11/16/17 09:21 61 131/73 11/16/17 08:00 97.7 61 19 131/73 98 97.7 11/16/17 08:00 68 11/16/17 06:58 62 18 99 Nasal Cannula 2.0 28 11/16/17 06:46 60 16 98 Nasal Cannula 2.0 28 11/16/17 06:46 Nasal Cannula 2.0 28 11/16/17 06:46 98 Nasal Cannula 2.0 28 11/16/17 05:52 75 146/89 11/16/17 04:00 97.7 66 18 146/89 98 Nasal Cannula 2.0 97.7 11/16/17 04:00 75 11/16/17 03:41 64 18 99 Nasal Cannula 2.0 28 11/16/17 03:31 66 18 98 Nasal Cannula 2.0 28 11/16/17 00:26 78 143/87 11/16/17 00:00 97.7 69 20 142/69 98 Nasal Cannula 2.0 97.7 11/16/17 00:00 64 11/15/17 23:34 61 18 99 Nasal Cannula 2.0 28 11/15/17 23:24 61 18 98 Nasal Cannula 2.0 28 11/15/17 20:17 64 18 99 Nasal Cannula 2.0 28 11/15/17 20:03 61 18 97 Nasal Cannula 2.0 28 11/15/17 20:03 Nasal Cannula 2.0 28 11/15/17 20:03 97 Nasal Cannula 2.0 28 11/15/17 20:00 96.8 63 20 126/65 98 Nasal Cannula 2.0 96.8 11/15/17 20:00 66 11/15/17 18:17 97.2 11/15/17 18:17 62 139/63 11/15/17 18:16 97.2 11/15/17 16:00 62 11/15/17 16:00 97.2 63 19 139/63 98 Nasal Cannula 2.0 97.2 11/15/17 15:48 97.8 11/15/17 14:49 97.8 11/15/17 14:45 72 20 98 Nasal Cannula 2.0 28 11/15/17 14:34 69 18 97 Nasal Cannula 2.0 28 11/15/17 12:19 64 122/65 Intake and Output 11/15/17 11/16/17 19:00 07:00 Intake Total 360.1 ml 82.5 ml Output Total 350 ml 800 ml Balance 10.1 ml -717.5 ml Free Water 30 ml IV Total 360.1 ml 27.5 ml Tube Feeding 25 ml Output Urine Total 350 ml 800 ml # Bowel Movements 2 General Appearance: no acute distress HEENT: normocephalic Respiratory/Chest: chest wall non-tender, lungs clear Cardiovascular: normal peripheral pulses, normal rate Abdomen: soft, non tender Laboratory Tests 11/16/17 06:40: White Blood Count 7.9, Red Blood Count 3.27L, Hemoglobin 9.9L, Hematocrit 30.5L , Mean Corpuscular Volume 93, Mean Corpuscular Hemoglobin 30.1, Mean Corpuscular Hemoglobin Concent 32.3, Red Cell Distribution Width 14.3, Platelet Count 114L, Mean Platelet Volume 8.8, Neutrophils (%) (Auto) , Lymphocytes (%) ( Auto) , Monocytes (%) (Auto) , Eosinophils (%) (Auto) , Basophils (%) (Auto) , Differential Total Cells Counted 100, Neutrophils % (Manual) 94H, Lymphocytes % (Manual) 2L, Monocytes % (Manual) 4, Eosinophils % (Manual) 0, Basophils % ( Manual) 0, Band Neutrophils 0, Platelet Estimate DecreasedL, Platelet Morphology Normal, Hypochromasia 2+, Sodium Level 142, Potassium Level 4.1, Chloride Level 103, Carbon Dioxide Level 35H, Anion Gap 4L, Blood Urea Nitrogen 48H, Creatinine 1.6H, Estimat Glomerular Filtration Rate , Glucose Level 141H, Calcium Level 9.1, Phosphorus Level 3.4 Current Medications Medications (Trade) Dose Ordered Sig/Scot Route PRN Reason Start Time Stop Time Status Last Admin Dose Admin Acetaminophen/ Hydrocodone Bitart ([place] 7.5/325) 1 tab Q4H ORAL 11/13/17 22:30 11/20/17 22:29 11/15/17 22:45 Albuterol/ Ipratropium (Albuterol/ Ipratropium) 3 ml Q4HRT HHN 11/14/17 19:00 11/19/17 18:59 11/16/17 11:20 Dextrose (Dextrose 50%) STAT PRN IV Hypoglycemia 11/13/17 11:30 12/09/17 11:29 Diltiazem HCl (Cardizem) 60 mg EVERY 6 HOURS ORAL 11/13/17 18:00 12/13/17 17:59 11/16/17 05:52 Docusate Sodium (Colace) 100 mg EVERY 12 HOURS ORAL 11/13/17 21:00 12/09/17 20:59 11/16/17 09:21 Finasteride (Proscar) 5 mg DAILY ORAL 11/14/17 09:00 12/10/17 08:59 11/16/17 09:22 Furosemide (Lasix) 40 mg DAILY IV 11/15/17 14:30 12/15/17 14:29 11/16/17 09:22 Lidocaine (Lidoderm 5% PATCH) 1 patch DAILY TDERMAL 11/14/17 09:00 12/10/17 08:59 11/16/17 09:22 Methylprednisolone Sodium Succinate (Solu-MEDROL) 40 mg EVERY 12 HOURS IVP 11/13/17 21:00 12/11/17 14:14 11/16/17 09:22 Metoprolol Tartrate (Lopressor) 25 mg Q12HR ORAL 11/16/17 21:00 12/16/17 20:59 Nitroglycerin (Ntg) 0.4 mg Q5M X 3 DOSES PRN SL Prn Chest Pain 11/13/17 11:30 12/09/17 14:29 Pantoprazole (Protonix) 40 mg DAILY ORAL 11/14/17 09:00 12/10/17 08:59 11/16/17 09:21 Piperacillin Sod/ Tazobactam Sod 3.375 gm/Sodium Chloride 110 ml @ 27.5 mls/hr Q8HR IVPB 11/15/17 15:00 11/22/17 14:59 11/16/17 05:53 Polyethylene Glycol (Miralax) 17 gm HSPRN PRN ORAL Constipation 11/13/17 11:30 12/09/17 11:29 Sennosides (Senokot) 2 tab DAILY ORAL 11/14/17 09:00 12/09/17 14:29 11/16/17 09:20 Tamsulosin HCl (Flomax) 0.8 mg BEDTIME ORAL 11/13/17 21:00 12/09/17 20:59 11/15/17 20:46 Tizanidine HCl (Zanaflex) 2 mg THREE TIMES A DAY ORAL 11/13/17 13:00 12/09/17 19:59 11/16/17 09:21 Davy Smith MD Nov 16, 2017 12:13
--- NOTE | 2017-11-16 14:27 | General Progress Note ---
Assessment/Plan Problem List: (1) Dysphagia ICD Codes: R13.10 - Dysphagia, unspecified SNOMED: 24498789, 682390365 (2) Encounter for PEG (percutaneous endoscopic gastrostomy) ICD Codes: Z43.1 - Encounter for attention to gastrostomy SNOMED: 326877659, 266507880 (3) Anemia ICD Codes: D64.9 - Anemia, unspecified SNOMED: 712492850 (4) COPD exacerbation ICD Codes: J44.1 - Chronic obstructive pulmonary disease with (acute) exacerbation SNOMED: 787414314 (5) CHF (congestive heart failure), NYHA class IV ICD Codes: I50.9 - Heart failure, unspecified SNOMED: 466755000, 707856956 Assessment/Plan s/p PEG abd binder GTF tolerated Subjective ROS Limited/Unobtainable: No Allergies: Coded Allergies: VINCENT INHIBITORS (Verified Allergy, Mild, 08/06/17) SHELLFISH (Verified Allergy, Unknown, 07/01/11) Objective Last 24 Hour Vital Signs Date Time Temp Pulse Resp B/P (MAP) Pulse Ox O2 Delivery O2 Flow Rate FiO2 11/16/17 13:20 66 132/58 11/16/17 12:00 97.7 66 18 132/58 96 Nasal Cannula 2.0 97.7 11/16/17 12:00 68 11/16/17 11:30 63 16 99 Nasal Cannula 2.0 28 11/16/17 11:20 62 15 98 Nasal Cannula 2.0 28 11/16/17 09:21 97.7 11/16/17 09:21 61 131/73 11/16/17 08:00 97.7 61 19 131/73 98 97.7 11/16/17 08:00 68 11/16/17 06:58 62 18 99 Nasal Cannula 2.0 28 11/16/17 06:46 60 16 98 Nasal Cannula 2.0 28 11/16/17 06:46 Nasal Cannula 2.0 28 11/16/17 06:46 98 Nasal Cannula 2.0 28 11/16/17 05:52 75 146/89 11/16/17 04:00 97.7 66 18 146/89 98 Nasal Cannula 2.0 97.7 11/16/17 04:00 75 11/16/17 03:41 64 18 99 Nasal Cannula 2.0 28 11/16/17 03:31 66 18 98 Nasal Cannula 2.0 28 11/16/17 00:26 78 143/87 11/16/17 00:00 97.7 69 20 142/69 98 Nasal Cannula 2.0 97.7 11/16/17 00:00 64 11/15/17 23:34 61 18 99 Nasal Cannula 2.0 28 11/15/17 23:24 61 18 98 Nasal Cannula 2.0 28 11/15/17 20:17 64 18 99 Nasal Cannula 2.0 28 11/15/17 20:03 61 18 97 Nasal Cannula 2.0 28 11/15/17 20:03 Nasal Cannula 2.0 28 11/15/17 20:03 97 Nasal Cannula 2.0 28 11/15/17 20:00 96.8 63 20 126/65 98 Nasal Cannula 2.0 96.8 11/15/17 20:00 66 11/15/17 18:17 97.2 11/15/17 18:17 62 139/63 11/15/17 18:16 97.2 11/15/17 16:00 62 11/15/17 16:00 97.2 63 19 139/63 98 Nasal Cannula 2.0 97.2 11/15/17 15:48 97.8 11/15/17 14:49 97.8 11/15/17 14:45 72 20 98 Nasal Cannula 2.0 28 11/15/17 14:34 69 18 97 Nasal Cannula 2.0 28 Intake and Output 11/15/17 11/16/17 19:00 07:00 Intake Total 360.1 ml 82.5 ml Output Total 350 ml 800 ml Balance 10.1 ml -717.5 ml Free Water 30 ml IV Total 360.1 ml 27.5 ml Tube Feeding 25 ml Output Urine Total 350 ml 800 ml # Bowel Movements 2 Laboratory Tests 11/16/17 06:40: White Blood Count 7.9, Red Blood Count 3.27L, Hemoglobin 9.9L, Hematocrit 30.5L , Mean Corpuscular Volume 93, Mean Corpuscular Hemoglobin 30.1, Mean Corpuscular Hemoglobin Concent 32.3, Red Cell Distribution Width 14.3, Platelet Count 114L, Mean Platelet Volume 8.8, Neutrophils (%) (Auto) , Lymphocytes (%) ( Auto) , Monocytes (%) (Auto) , Eosinophils (%) (Auto) , Basophils (%) (Auto) , Differential Total Cells Counted 100, Neutrophils % (Manual) 94H, Lymphocytes % (Manual) 2L, Monocytes % (Manual) 4, Eosinophils % (Manual) 0, Basophils % ( Manual) 0, Band Neutrophils 0, Platelet Estimate DecreasedL, Platelet Morphology Normal, Hypochromasia 2+, Sodium Level 142, Potassium Level 4.1, Chloride Level 103, Carbon Dioxide Level 35H, Anion Gap 4L, Blood Urea Nitrogen 48H, Creatinine 1.6H, Estimat Glomerular Filtration Rate , Glucose Level 141H, Calcium Level 9.1, Phosphorus Level 3.4 Height (Feet): 5 Height (Inches): 7.00 Weight (Pounds): 128 General Appearance: no apparent distress EENT: normal ENT inspection Neck: supple Cardiovascular: normal rate Respiratory/Chest: decreased breath sounds Abdomen: normal bowel sounds, non tender, soft Extremities: non-tender MARK STEVENSON Nov 16, 2017 14:27
[2017-11-16] MEDS ORDERED: Nitroglycerin Subl 0.4mg tab SL PRN (15:30)
[2017-11-16 16:00] VITALS: BP 134/73
[2017-11-16 19:46] VITALS: BP 140/64
[2017-11-16] MEDS ORDERED: Heparin 5000 units/ml inj SUBQ SCH (21:00)
[2017-11-16] MEDS ORDERED: Metoprolol 25mg tab ORAL SCH (21:00)
[2017-11-16] MEDS: Heparin 5000 units/ml inj SUBQ SCH (21:00)
[2017-11-16] MEDS: Tamsulosin 0.4mg cap ORAL SCH (21:30)
[2017-11-16] MEDS: Metoprolol 25mg tab ORAL SCH (21:31)
[2017-11-17] VITALS (7 sets, daily range): BP systolic 135–160; BP diastolic 70–95
[2017-11-17] MEDS: dilTIAZem HCl 60mg tab ORAL SCH ×4 (00:41→18:09)
[2017-11-17] MEDS: HYDROcodone/Acetamin 7.5/325 tab ORAL SCH ×6 (02:30→20:54)
[2017-11-17] MEDS: Albuterol/Ipratropium 3ml neb HHN SCH ×6 (03:39→23:00)
[2017-11-17] MEDS: Piperacillin/Tazobactam 3.375 GM in NS 110 ML IVPB SCH ×3 (05:44→20:51)
[2017-11-17 07:03] LABS: HEMATOCRIT 32.1 % (42.0-52.0); HEMOGLOBIN 10.3 G/DL (14.2-18.0); MEAN CORPUSCULAR VOLUME 94 FL (80-99); PLATELET COUNT 117 K/UL (150-450); RED BLOOD COUNT 3.43 M/UL (4.70-6.10); RED CELL DISTRIBUTION WIDTH 15.4 % (11.6-14.8); WHITE BLOOD COUNT 9.4 K/UL (4.8-10.8)
[2017-11-17 07:16] LABS: ANION GAP 5 mmol/L (5-15); BLOOD UREA NITROGEN 45 mg/dL (7-18); CALCIUM 9.3 MG/DL (8.5-10.1); CARBON DIOXIDE 37 MMOL/L (21-32); CHLORIDE 104 MMOL/L (98-107); CREATININE 1.3 MG/DL (0.55-1.30); POTASSIUM 3.5 MMOL/L (3.5-5.1); SODIUM 146 MMOL/L (136-145)
[2017-11-17] MEDS: Solu-MEDROL 40mg Inj IVP SCH ×2 (08:25→20:50)
[2017-11-17] MEDS: Docusate 100mg cap ORAL SCH ×2 (08:26→20:50)
[2017-11-17] MEDS: Metoprolol 25mg tab ORAL SCH ×2 (08:26→20:49)
[2017-11-17] MEDS: Heparin 5000 units/ml inj SUBQ SCH ×2 (08:27→20:52)
[2017-11-17] MEDS: Sennosides 8.6mg ORAL SCH (08:28)
--- NOTE | 2017-11-17 08:53 | General Progress Note ---
Assessment/Plan Problem List: (1) Dysphagia ICD Codes: R13.10 - Dysphagia, unspecified SNOMED: 58109220, 065894945 (2) Encounter for PEG (percutaneous endoscopic gastrostomy) ICD Codes: Z43.1 - Encounter for attention to gastrostomy SNOMED: 991843524, 138174497 (3) Anemia ICD Codes: D64.9 - Anemia, unspecified SNOMED: 262162942 (4) COPD exacerbation ICD Codes: J44.1 - Chronic obstructive pulmonary disease with (acute) exacerbation SNOMED: 107121663 (5) CHF (congestive heart failure), NYHA class IV ICD Codes: I50.9 - Heart failure, unspecified SNOMED: 496967824, 321876306 Assessment/Plan s/p PEG abd binder GTF tolerated dc planning per primary team Subjective ROS Limited/Unobtainable: No Allergies: Coded Allergies: VINCENT INHIBITORS (Verified Allergy, Mild, 08/06/17) SHELLFISH (Verified Allergy, Unknown, 07/01/11) Objective Last 24 Hour Vital Signs Date Time Temp Pulse Resp B/P (MAP) Pulse Ox O2 Delivery O2 Flow Rate FiO2 11/17/17 08:26 93 160/95 11/17/17 08:00 97.9 93 18 160/95 93 Nasal Cannula 2.0 97.9 11/17/17 07:36 64 18 95 Nasal Cannula 2.0 28 11/17/17 07:28 98 Nasal Cannula 2.0 28 11/17/17 07:28 Nasal Cannula 2.0 28 11/17/17 07:28 68 16 98 Nasal Cannula 2.0 28 11/17/17 05:44 99 145/70 11/17/17 04:00 Nasal Cannula 2.0 11/17/17 04:00 97.2 99 20 145/70 98 97.2 11/17/17 03:49 60 16 99 Nasal Cannula 2.0 28 11/17/17 03:39 62 16 98 Nasal Cannula 2.0 28 11/17/17 00:41 70 136/72 11/17/17 00:00 Nasal Cannula 2.0 11/17/17 00:00 97.6 70 20 136/72 93 97.6 11/16/17 23:26 62 16 99 Nasal Cannula 2.0 28 11/16/17 23:16 61 16 97 Nasal Cannula 2.0 28 11/16/17 21:31 61 140/64 11/16/17 20:19 61 16 99 Nasal Cannula 2.0 28 11/16/17 20:02 Nasal Cannula 2.0 28 11/16/17 20:02 60 16 97 Nasal Cannula 2.0 28 11/16/17 20:02 97 Nasal Cannula 2.0 28 11/16/17 20:00 Nasal Cannula 2.0 11/16/17 19:46 97.2 61 21 140/64 97 97.2 11/16/17 17:50 63 134/73 11/16/17 16:00 98.1 63 20 134/73 97 Nasal Cannula 2.0 98.1 11/16/17 14:58 64 16 99 Nasal Cannula 2.0 28 11/16/17 14:48 61 16 98 Nasal Cannula 2.0 28 11/16/17 13:20 66 132/58 11/16/17 12:00 97.7 66 18 132/58 96 Nasal Cannula 2.0 97.7 11/16/17 12:00 68 11/16/17 11:30 63 16 99 Nasal Cannula 2.0 28 11/16/17 11:20 62 15 98 Nasal Cannula 2.0 28 11/16/17 09:21 97.7 11/16/17 09:21 61 131/73 Intake and Output 11/16/17 11/17/17 19:00 07:00 Intake Total 527.5 ml 781.5 ml Output Total 2030 ml Balance 527.5 ml -1248.5 ml Free Water 160 ml 200 ml IV Total 82.5 ml 137.5 ml Tube Feeding 285 ml 444 ml Output Urine Total 2030 ml # Bowel Movements 2 Laboratory Tests 11/17/17 05:15: White Blood Count 9.4, Red Blood Count 3.43L, Hemoglobin 10.3L, Hematocrit 32.1L , Mean Corpuscular Volume 94, Mean Corpuscular Hemoglobin 30.1, Mean Corpuscular Hemoglobin Concent 32.1, Red Cell Distribution Width 15.4H, Platelet Count 117L, Mean Platelet Volume 8.1, Neutrophils (%) (Auto) , Lymphocytes (%) (Auto) , Monocytes (%) (Auto) , Eosinophils (%) (Auto) , Basophils (%) (Auto) , Differential Total Cells Counted 100, Neutrophils % ( Manual) 88H, Lymphocytes % (Manual) 8L, Monocytes % (Manual) 4, Eosinophils % ( Manual) 0, Basophils % (Manual) 0, Band Neutrophils 0, Platelet Estimate DecreasedL, Platelet Morphology Normal, Hypochromasia 1+, Anisocytosis 1+, Sodium Level 146H, Potassium Level 3.5, Chloride Level 104, Carbon Dioxide Level 37H, Anion Gap 5, Blood Urea Nitrogen 45H, Creatinine 1.3, Estimat Glomerular Filtration Rate , Glucose Level 145H, Calcium Level 9.3 Height (Feet): 5 Height (Inches): 7.00 Weight (Pounds): 128 General Appearance: no apparent distress EENT: normal ENT inspection Neck: supple Cardiovascular: normal rate Respiratory/Chest: decreased breath sounds Abdomen: normal bowel sounds, non tender, soft Extremities: non-tender MARK STEVENSON Nov 17, 2017 08:52
--- NOTE | 2017-11-17 09:22 | Pulmonology Progress Note ---
Assessment/Plan Assessment/Plan COPD systolic and diastolic CHF pulm HTN pacemaker atrial fibrillation past stroke with dysarthria, aphasia prostate cancer Hyperkalemia pleural effusion mod wheezes wants to eat new PEG, tolerating feeds cont steroids, lasix, HHN, abx check BNP Subjective Respiratory: Reports: shortness of breath Gastrointestinal/Abdominal: Reports: other - hungry Allergies: Coded Allergies: VINCENT INHIBITORS (Verified Allergy, Mild, 08/06/17) SHELLFISH (Verified Allergy, Unknown, 07/01/11) Objective Last 24 Hour Vital Signs Date Time Temp Pulse Resp B/P (MAP) Pulse Ox O2 Delivery O2 Flow Rate FiO2 11/17/17 08:26 93 160/95 11/17/17 08:00 97.9 93 18 160/95 93 Nasal Cannula 2.0 97.9 11/17/17 07:36 64 18 95 Nasal Cannula 2.0 28 11/17/17 07:28 98 Nasal Cannula 2.0 28 11/17/17 07:28 Nasal Cannula 2.0 28 11/17/17 07:28 68 16 98 Nasal Cannula 2.0 28 11/17/17 05:44 99 145/70 11/17/17 04:00 Nasal Cannula 2.0 11/17/17 04:00 97.2 99 20 145/70 98 97.2 11/17/17 03:49 60 16 99 Nasal Cannula 2.0 28 11/17/17 03:39 62 16 98 Nasal Cannula 2.0 28 11/17/17 00:41 70 136/72 11/17/17 00:00 Nasal Cannula 2.0 11/17/17 00:00 97.6 70 20 136/72 93 97.6 11/16/17 23:26 62 16 99 Nasal Cannula 2.0 28 11/16/17 23:16 61 16 97 Nasal Cannula 2.0 28 11/16/17 21:31 61 140/64 11/16/17 20:19 61 16 99 Nasal Cannula 2.0 28 11/16/17 20:02 Nasal Cannula 2.0 28 11/16/17 20:02 60 16 97 Nasal Cannula 2.0 28 11/16/17 20:02 97 Nasal Cannula 2.0 28 11/16/17 20:00 Nasal Cannula 2.0 11/16/17 19:46 97.2 61 21 140/64 97 97.2 11/16/17 17:50 63 134/73 11/16/17 16:00 98.1 63 20 134/73 97 Nasal Cannula 2.0 98.1 11/16/17 14:58 64 16 99 Nasal Cannula 2.0 28 11/16/17 14:48 61 16 98 Nasal Cannula 2.0 28 11/16/17 13:20 66 132/58 11/16/17 12:00 97.7 66 18 132/58 96 Nasal Cannula 2.0 97.7 11/16/17 12:00 68 11/16/17 11:30 63 16 99 Nasal Cannula 2.0 28 11/16/17 11:20 62 15 98 Nasal Cannula 2.0 28 Intake and Output 11/16/17 11/17/17 19:00 07:00 Intake Total 527.5 ml 781.5 ml Output Total 2030 ml Balance 527.5 ml -1248.5 ml Free Water 160 ml 200 ml IV Total 82.5 ml 137.5 ml Tube Feeding 285 ml 444 ml Output Urine Total 2030 ml # Bowel Movements 2 General Appearance: no acute distress HEENT: atraumatic Respiratory/Chest: expiratory wheezing Cardiovascular: normal rate Abdomen: soft, non tender, distended, other - PEG Laboratory Tests 11/17/17 05:15: White Blood Count 9.4, Red Blood Count 3.43L, Hemoglobin 10.3L, Hematocrit 32.1L , Mean Corpuscular Volume 94, Mean Corpuscular Hemoglobin 30.1, Mean Corpuscular Hemoglobin Concent 32.1, Red Cell Distribution Width 15.4H, Platelet Count 117L, Mean Platelet Volume 8.1, Neutrophils (%) (Auto) , Lymphocytes (%) (Auto) , Monocytes (%) (Auto) , Eosinophils (%) (Auto) , Basophils (%) (Auto) , Differential Total Cells Counted 100, Neutrophils % ( Manual) 88H, Lymphocytes % (Manual) 8L, Monocytes % (Manual) 4, Eosinophils % ( Manual) 0, Basophils % (Manual) 0, Band Neutrophils 0, Platelet Estimate DecreasedL, Platelet Morphology Normal, Hypochromasia 1+, Anisocytosis 1+, Sodium Level 146H, Potassium Level 3.5, Chloride Level 104, Carbon Dioxide Level 37H, Anion Gap 5, Blood Urea Nitrogen 45H, Creatinine 1.3, Estimat Glomerular Filtration Rate , Glucose Level 145H, Calcium Level 9.3 Current Medications Medications (Trade) Dose Ordered Sig/Scot Route PRN Reason Start Time Stop Time Status Last Admin Dose Admin Acetaminophen/ Hydrocodone Bitart ([place] 7.5/325) 1 tab Q4H ORAL 11/16/17 18:30 11/20/17 22:29 Albuterol/ Ipratropium (Albuterol/ Ipratropium) 3 ml Q4HRT HHN 11/16/17 19:00 11/19/17 18:59 11/17/17 07:28 Dextrose (Dextrose 50%) STAT PRN IV Hypoglycemia 11/17/17 11:30 12/09/17 11:29 Diltiazem HCl (Cardizem) 60 mg EVERY 6 HOURS ORAL 11/16/17 18:00 12/13/17 17:59 11/17/17 05:44 Docusate Sodium (Colace) 100 mg EVERY 12 HOURS ORAL 11/16/17 21:00 12/09/17 20:59 11/17/17 08:26 Finasteride (Proscar) 5 mg DAILY ORAL 11/17/17 09:00 12/10/17 08:59 11/17/17 08:27 Furosemide (Lasix) 40 mg DAILY IV 11/17/17 09:00 12/15/17 14:29 11/17/17 08:25 Heparin Sodium (Porcine) (Heparin 5000 units/ml) 5,000 units EVERY 12 HOURS SUBQ 11/16/17 21:00 12/16/17 20:59 Lidocaine (Lidoderm 5% PATCH) 1 patch DAILY TDERMAL 11/17/17 09:00 12/10/17 08:59 11/17/17 08:52 Methylprednisolone Sodium Succinate (Solu-MEDROL) 40 mg EVERY 12 HOURS IVP 11/16/17 21:00 12/11/17 14:14 11/17/17 08:25 Metoprolol Tartrate (Lopressor) 25 mg Q12HR ORAL 11/16/17 21:00 12/16/17 20:59 11/17/17 08:26 Nitroglycerin (Ntg) 0.4 mg Q5M X 3 DOSES PRN SL Prn Chest Pain 11/16/17 15:30 12/09/17 14:29 Pantoprazole (Protonix) 40 mg DAILY ORAL 11/17/17 09:00 12/10/17 08:59 11/17/17 08:25 Piperacillin Sod/ Tazobactam Sod 3.375 gm/Sodium Chloride 110 ml @ 27.5 mls/hr Q8HR IVPB 11/16/17 22:00 11/22/17 14:59 11/17/17 05:44 Polyethylene Glycol (Miralax) 17 gm HSPRN PRN ORAL Constipation 11/17/17 11:30 12/09/17 11:29 Sennosides (Senokot) 2 tab DAILY ORAL 11/17/17 09:00 12/09/17 14:29 11/17/17 08:28 Tamsulosin HCl (Flomax) 0.8 mg BEDTIME ORAL 11/16/17 21:00 12/09/17 20:59 11/16/17 21:30 Tizanidine HCl (Zanaflex) 2 mg THREE TIMES A DAY ORAL 11/16/17 18:00 12/09/17 19:59 11/17/17 08:27 ERIN ARIAS 4, 2018 09:22
--- NOTE | 2017-11-17 10:13 | Urology Progress Note ---
Assessment/Plan Assessment/Plan 1. Acute kidney injury, improved. 2. BPH history. 3. Rule out neurogenic bladder. 4. Pyuria. 5. Hematuria. 6. Proteinuria. keep [place] indwelling I personally hand irrigated [place], minimal clots hand irrigate [place] PRN flomax, proscar, abx asa and lovenox held monitor renal fxn cysto later voiding trial later d/w nursing staff Subjective Allergies: Coded Allergies: VINCENT INHIBITORS (Verified Allergy, Mild, 08/06/17) SHELLFISH (Verified Allergy, Unknown, 07/01/11) Subjective all noted, [place] draining well, nurses hand irrigate PRN Objective Last 24 Hour Vital Signs Date Time Temp Pulse Resp B/P (MAP) Pulse Ox O2 Delivery O2 Flow Rate FiO2 11/17/17 08:26 93 160/95 11/17/17 08:00 97.9 93 18 160/95 93 Nasal Cannula 2.0 97.9 11/17/17 07:36 64 18 95 Nasal Cannula 2.0 28 11/17/17 07:28 98 Nasal Cannula 2.0 28 11/17/17 07:28 Nasal Cannula 2.0 28 11/17/17 07:28 68 16 98 Nasal Cannula 2.0 28 11/17/17 05:44 99 145/70 11/17/17 04:00 Nasal Cannula 2.0 11/17/17 04:00 97.2 99 20 145/70 98 97.2 11/17/17 03:49 60 16 99 Nasal Cannula 2.0 28 11/17/17 03:39 62 16 98 Nasal Cannula 2.0 28 11/17/17 00:41 70 136/72 11/17/17 00:00 Nasal Cannula 2.0 11/17/17 00:00 97.6 70 20 136/72 93 97.6 11/16/17 23:26 62 16 99 Nasal Cannula 2.0 28 11/16/17 23:16 61 16 97 Nasal Cannula 2.0 28 11/16/17 21:31 61 140/64 11/16/17 20:19 61 16 99 Nasal Cannula 2.0 28 11/16/17 20:02 Nasal Cannula 2.0 28 11/16/17 20:02 60 16 97 Nasal Cannula 2.0 28 11/16/17 20:02 97 Nasal Cannula 2.0 28 11/16/17 20:00 Nasal Cannula 2.0 11/16/17 19:46 97.2 61 21 140/64 97 97.2 11/16/17 17:50 63 134/73 11/16/17 16:00 98.1 63 20 134/73 97 Nasal Cannula 2.0 98.1 11/16/17 14:58 64 16 99 Nasal Cannula 2.0 28 11/16/17 14:48 61 16 98 Nasal Cannula 2.0 28 11/16/17 13:20 66 132/58 11/16/17 12:00 97.7 66 18 132/58 96 Nasal Cannula 2.0 97.7 11/16/17 12:00 68 11/16/17 11:30 63 16 99 Nasal Cannula 2.0 28 11/16/17 11:20 62 15 98 Nasal Cannula 2.0 28 Intake and Output 11/16/17 11/17/17 19:00 07:00 Intake Total 527.5 ml 781.5 ml Output Total 2030 ml Balance 527.5 ml -1248.5 ml Free Water 160 ml 200 ml IV Total 82.5 ml 137.5 ml Tube Feeding 285 ml 444 ml Output Urine Total 2030 ml # Bowel Movements 2 Microbiology Date/Time Source Procedure Growth Status 11/09/17 10:15 Blood Blood Culture - Final NO GROWTH AFTER 5 DAYS Complete 11/12/17 11:02 Body Fluid Pleura, Rt Lung Gram Stain - Final Complete 11/12/17 11:02 Body Fluid Pleura, Rt Lung Body Fluid Culture - Final NO GROWTH Complete 11/12/17 22:30 Sputum Induced Gram Stain - Final Complete 11/12/17 22:30 Sputum Induced Sputum Culture - Final NORMAL UPPER RESPIRATORY DELMY PRESENT Complete Current Medications Medications (Trade) Dose Ordered Sig/Scot Route PRN Reason Start Time Stop Time Status Last Admin Dose Admin Acetaminophen/ Hydrocodone Bitart ([place] 7.5/325) 1 tab Q4H ORAL 11/16/17 18:30 11/20/17 22:29 Albuterol/ Ipratropium (Albuterol/ Ipratropium) 3 ml Q4HRT HHN 11/16/17 19:00 11/19/17 18:59 11/17/17 07:28 Dextrose (Dextrose 50%) STAT PRN IV Hypoglycemia 11/17/17 11:30 12/09/17 11:29 Diltiazem HCl (Cardizem) 60 mg EVERY 6 HOURS ORAL 11/16/17 18:00 12/13/17 17:59 11/17/17 05:44 Docusate Sodium (Colace) 100 mg EVERY 12 HOURS ORAL 11/16/17 21:00 12/09/17 20:59 11/17/17 08:26 Finasteride (Proscar) 5 mg DAILY ORAL 11/17/17 09:00 12/10/17 08:59 11/17/17 08:27 Furosemide (Lasix) 40 mg DAILY IV 11/17/17 09:00 12/15/17 14:29 11/17/17 08:25 Heparin Sodium (Porcine) (Heparin 5000 units/ml) 5,000 units EVERY 12 HOURS SUBQ 11/16/17 21:00 12/16/17 20:59 Lidocaine (Lidoderm 5% PATCH) 1 patch DAILY TDERMAL 11/17/17 09:00 12/10/17 08:59 11/17/17 08:52 Methylprednisolone Sodium Succinate (Solu-MEDROL) 40 mg EVERY 12 HOURS IVP 11/16/17 21:00 12/11/17 14:14 11/17/17 08:25 Metoprolol Tartrate (Lopressor) 25 mg Q12HR ORAL 11/16/17 21:00 12/16/17 20:59 11/17/17 08:26 Nitroglycerin (Ntg) 0.4 mg Q5M X 3 DOSES PRN SL Prn Chest Pain 11/16/17 15:30 12/09/17 14:29 Pantoprazole (Protonix) 40 mg DAILY ORAL 11/17/17 09:00 12/10/17 08:59 11/17/17 08:25 Piperacillin Sod/ Tazobactam Sod 3.375 gm/Sodium Chloride 110 ml @ 27.5 mls/hr Q8HR IVPB 11/16/17 22:00 11/22/17 14:59 11/17/17 05:44 Polyethylene Glycol (Miralax) 17 gm HSPRN PRN ORAL Constipation 11/17/17 11:30 12/09/17 11:29 Sennosides (Senokot) 2 tab DAILY ORAL 11/17/17 09:00 12/09/17 14:29 11/17/17 08:28 Tamsulosin HCl (Flomax) 0.8 mg BEDTIME ORAL 11/16/17 21:00 12/09/17 20:59 11/16/17 21:30 Tizanidine HCl (Zanaflex) 2 mg THREE TIMES A DAY ORAL 11/16/17 18:00 12/09/17 19:59 11/17/17 08:27 Laboratory Tests 11/17/17 05:15: White Blood Count 9.4, Red Blood Count 3.43L, Hemoglobin 10.3L, Hematocrit 32.1L , Mean Corpuscular Volume 94, Mean Corpuscular Hemoglobin 30.1, Mean Corpuscular Hemoglobin Concent 32.1, Red Cell Distribution Width 15.4H, Platelet Count 117L, Mean Platelet Volume 8.1, Neutrophils (%) (Auto) , Lymphocytes (%) (Auto) , Monocytes (%) (Auto) , Eosinophils (%) (Auto) , Basophils (%) (Auto) , Differential Total Cells Counted 100, Neutrophils % ( Manual) 88H, Lymphocytes % (Manual) 8L, Monocytes % (Manual) 4, Eosinophils % ( Manual) 0, Basophils % (Manual) 0, Band Neutrophils 0, Platelet Estimate DecreasedL, Platelet Morphology Normal, Hypochromasia 1+, Anisocytosis 1+, Sodium Level 146H, Potassium Level 3.5, Chloride Level 104, Carbon Dioxide Level 37H, Anion Gap 5, Blood Urea Nitrogen 45H, Creatinine 1.3, Estimat Glomerular Filtration Rate , Glucose Level 145H, Calcium Level 9.3 Height (Feet): 5 Height (Inches): 7.00 Weight (Pounds): 128 Objective exam shows [place] indwelling, urine is marilu/blood-tinged BANGSHADPAULINE Nov 17, 2017 10:13
[2017-11-17] MEDS ORDERED: Miralax 17gm pkt ORAL PRN (11:30)
[2017-11-17] MEDS ORDERED: 1/2 NS 1000ml IV ONE (17:29)
--- NOTE | 2017-11-17 18:35 | General Progress Note ---
Assessment/Plan Assessment/Plan 1) He is in CHF 2) Charla has recovered 3) Dysphagia s/p GT 4) S/p L hemispheric CVA Plan: Will diurese him with lasix 40 mg IV Q8 x2 Replete K+ Repeat swallow eval Subjective Allergies: Coded Allergies: VINCENT INHIBITORS (Verified Allergy, Mild, 08/06/17) SHELLFISH (Verified Allergy, Unknown, 07/01/11) Subjective He wants to eat, some audibler wheezing, he has failed swallow eval previously Objective Last 24 Hour Vital Signs Date Time Temp Pulse Resp B/P (MAP) Pulse Ox O2 Delivery O2 Flow Rate FiO2 11/17/17 18:09 62 169/72 11/17/17 16:15 98.2 94 20 135/77 Room Air 98.2 11/17/17 15:24 67 16 98 Nasal Cannula 2.0 28 11/17/17 15:24 Nasal Cannula 2.0 11/17/17 14:22 157/72 11/17/17 12:09 88 160/76 11/17/17 11:45 98.4 88 18 160/76 94 Nasal Cannula 2.0 98.4 11/17/17 11:05 64 16 98 Nasal Cannula 2.0 28 11/17/17 11:05 Nasal Cannula 2.0 11/17/17 08:26 93 160/95 11/17/17 08:00 97.9 93 18 160/95 93 Nasal Cannula 2.0 97.9 11/17/17 07:36 64 18 95 Nasal Cannula 2.0 28 11/17/17 07:28 98 Nasal Cannula 2.0 28 11/17/17 07:28 Nasal Cannula 2.0 28 11/17/17 07:28 68 16 98 Nasal Cannula 2.0 28 11/17/17 05:44 99 145/70 11/17/17 04:00 Nasal Cannula 2.0 11/17/17 04:00 97.2 99 20 145/70 98 97.2 11/17/17 03:49 60 16 99 Nasal Cannula 2.0 28 11/17/17 03:39 62 16 98 Nasal Cannula 2.0 28 11/17/17 00:41 70 136/72 11/17/17 00:00 Nasal Cannula 2.0 11/17/17 00:00 97.6 70 20 136/72 93 97.6 11/16/17 23:26 62 16 99 Nasal Cannula 2.0 28 11/16/17 23:16 61 16 97 Nasal Cannula 2.0 28 11/16/17 21:31 61 140/64 11/16/17 20:19 61 16 99 Nasal Cannula 2.0 28 11/16/17 20:02 Nasal Cannula 2.0 28 11/16/17 20:02 60 16 97 Nasal Cannula 2.0 28 11/16/17 20:02 97 Nasal Cannula 2.0 28 11/16/17 20:00 Nasal Cannula 2.0 11/16/17 19:46 97.2 61 21 140/64 97 97.2 Intake and Output 11/16/17 11/17/17 19:00 07:00 Intake Total 527.5 ml 781.5 ml Output Total 2030 ml Balance 527.5 ml -1248.5 ml Free Water 160 ml 200 ml IV Total 82.5 ml 137.5 ml Tube Feeding 285 ml 444 ml Output Urine Total 2030 ml # Bowel Movements 2 Laboratory Tests 11/17/17 05:15: White Blood Count 9.4, Red Blood Count 3.43L, Hemoglobin 10.3L, Hematocrit 32.1L , Mean Corpuscular Volume 94, Mean Corpuscular Hemoglobin 30.1, Mean Corpuscular Hemoglobin Concent 32.1, Red Cell Distribution Width 15.4H, Platelet Count 117L, Mean Platelet Volume 8.1, Neutrophils (%) (Auto) , Lymphocytes (%) (Auto) , Monocytes (%) (Auto) , Eosinophils (%) (Auto) , Basophils (%) (Auto) , Differential Total Cells Counted 100, Neutrophils % ( Manual) 88H, Lymphocytes % (Manual) 8L, Monocytes % (Manual) 4, Eosinophils % ( Manual) 0, Basophils % (Manual) 0, Band Neutrophils 0, Platelet Estimate DecreasedL, Platelet Morphology Normal, Hypochromasia 1+, Anisocytosis 1+, Sodium Level 146H, Potassium Level 3.5, Chloride Level 104, Carbon Dioxide Level 37H, Anion Gap 5, Blood Urea Nitrogen 45H, Creatinine 1.3, Estimat Glomerular Filtration Rate , Glucose Level 145H, Calcium Level 9.3 Height (Feet): 5 Height (Inches): 7.00 Weight (Pounds): 128 General Appearance: WD/WN, no apparent distress, alert EENT: PERRL/EOMI Neck: non-tender Cardiovascular: normal peripheral pulses, JVD - high, irregularly irregular Respiratory/Chest: expiratory wheezing Abdomen: normal bowel sounds, other - GT in place Neurologic: aphasia, other - R hemiparesis MARYAM MACHADO Nov 17, 2017 18:35
[2017-11-17] MEDS ORDERED: Sterile Water For Inj 1000ml IV ONE (18:47)
[2017-11-17] MEDS ORDERED: Sterile Water Irrig 1000ml IRRIG ONE (18:47)
[2017-11-17] MEDS: Tamsulosin 0.4mg cap ORAL SCH (20:50)
[2017-11-18] VITALS: BP 144/76
[2017-11-18] MEDS: Albuterol/Ipratropium 3ml neb HHN SCH ×7 (03:00→23:05)
[2017-11-18] MEDS: HYDROcodone/Acetamin 7.5/325 tab ORAL SCH ×6 (03:04→21:54)
[2017-11-18] MEDS: dilTIAZem HCl 60mg tab ORAL SCH ×4 (03:05→17:15)
[2017-11-18 04:00] VITALS: BP 141/68
[2017-11-18] MEDS: Piperacillin/Tazobactam 3.375 GM in NS 110 ML IVPB SCH ×3 (05:42→21:53)
[2017-11-18 08:00] VITALS: BP 169/79
[2017-11-18] MEDS: Heparin 5000 units/ml inj SUBQ SCH ×2 (08:36→21:00)
[2017-11-18] MEDS: Docusate 100mg cap ORAL SCH (08:36)
[2017-11-18] MEDS: Solu-MEDROL 40mg Inj IVP SCH ×2 (08:37→21:40)
[2017-11-18] MEDS: Sennosides 8.6mg ORAL SCH (08:37)
[2017-11-18] MEDS: Metoprolol 25mg tab ORAL SCH ×2 (08:38→21:41)
--- NOTE | 2017-11-18 09:19 | Pulmonology Progress Note ---
Assessment/Plan Assessment/Plan COPD systolic and diastolic CHF pulm HTN pacemaker atrial fibrillation past stroke with dysarthria, aphasia prostate cancer Hyperkalemia pleural effusion mod wheezes much more comfortable tolerating GT feeds video swallow taper steroids cont lasix, HHN, abx Subjective ROS Limited/Unobtainable: Yes Allergies: Coded Allergies: VINCENT INHIBITORS (Verified Allergy, Mild, 08/06/17) SHELLFISH (Verified Allergy, Unknown, 07/01/11) Objective Last 24 Hour Vital Signs Date Time Temp Pulse Resp B/P (MAP) Pulse Ox O2 Delivery O2 Flow Rate FiO2 11/18/17 08:38 94 169/79 11/18/17 07:17 63 16 99 Nasal Cannula 2.0 28 11/18/17 07:05 Nasal Cannula 2.0 28 11/18/17 07:05 60 16 98 Nasal Cannula 2.0 28 11/18/17 07:05 98 Nasal Cannula 2.0 28 11/18/17 05:42 68 141/68 11/18/17 04:09 68 16 99 Nasal Cannula 2.0 28 11/18/17 04:00 98.1 72 18 141/68 97 Nasal Cannula 2.0 98.1 11/18/17 03:55 66 18 96 Nasal Cannula 2.0 28 11/18/17 03:05 64 148/70 11/18/17 02:59 Nasal Cannula 2.0 28 11/18/17 02:59 Nasal Cannula 2.0 11/18/17 00:00 97.5 61 18 144/76 99 Nasal Cannula 2.0 97.5 11/17/17 20:49 60 149/60 11/17/17 20:17 66 16 99 Nasal Cannula 2.0 28 11/17/17 20:02 Nasal Cannula 2.0 28 11/17/17 20:02 98 Nasal Cannula 2.0 28 11/17/17 20:01 70 16 98 Nasal Cannula 2.0 28 11/17/17 20:00 97.5 60 18 149/70 99 Nasal Cannula 2.0 97.5 11/17/17 18:09 62 169/72 11/17/17 16:15 98.2 94 20 135/77 Room Air 98.2 11/17/17 15:24 67 16 98 Nasal Cannula 2.0 28 11/17/17 15:24 Nasal Cannula 2.0 11/17/17 14:22 157/72 11/17/17 12:09 88 160/76 11/17/17 11:45 98.4 88 18 160/76 94 Nasal Cannula 2.0 98.4 11/17/17 11:05 64 16 98 Nasal Cannula 2.0 28 11/17/17 11:05 Nasal Cannula 2.0 Intake and Output 11/17/17 11/18/17 19:00 07:00 Intake Total 704 ml 617.0 ml Output Total 850 ml 2500 ml Balance -146 ml -1883.0 ml Free Water 260 ml 100 ml IV Total 110.0 ml Tube Feeding 444 ml 407 ml Output Urine Total 850 ml 2500 ml # Bowel Movements 1 1 General Appearance: no acute distress HEENT: atraumatic Respiratory/Chest: expiratory wheezing Cardiovascular: irregularly irregular Microbiology Date/Time Source Procedure Growth Status 11/16/17 14:00 Indwelling Cath Urine Culture - Preliminary NO GROWTH AFTER 24 HOURS Resulted Current Medications Medications (Trade) Dose Ordered Sig/Scot Route PRN Reason Start Time Stop Time Status Last Admin Dose Admin Acetaminophen/ Hydrocodone Bitart ([place] 7.5/325) 1 tab Q4H ORAL 11/16/17 18:30 11/20/17 22:29 11/18/17 05:42 Albuterol/ Ipratropium (Albuterol/ Ipratropium) 3 ml Q4HRT HHN 11/16/17 19:00 11/19/17 18:59 11/18/17 07:05 Dextrose (Dextrose 50%) STAT PRN IV Hypoglycemia 11/17/17 11:30 12/09/17 11:29 Diltiazem HCl (Cardizem) 60 mg EVERY 6 HOURS ORAL 11/16/17 18:00 12/13/17 17:59 11/18/17 05:42 Docusate Sodium (Colace) 100 mg EVERY 12 HOURS ORAL 11/16/17 21:00 12/09/17 20:59 11/17/17 20:50 Finasteride (Proscar) 5 mg DAILY ORAL 11/17/17 09:00 12/10/17 08:59 11/18/17 08:37 Furosemide (Lasix) 40 mg DAILY IV 11/17/17 09:00 12/15/17 14:29 11/18/17 08:38 Heparin Sodium (Porcine) (Heparin 5000 units/ml) 5,000 units EVERY 12 HOURS SUBQ 11/16/17 21:00 12/16/17 20:59 Lidocaine (Lidoderm 5% PATCH) 1 patch DAILY TDERMAL 11/17/17 09:00 12/10/17 08:59 11/18/17 08:39 Methylprednisolone Sodium Succinate (Solu-MEDROL) 40 mg EVERY 12 HOURS IVP 11/16/17 21:00 12/11/17 14:14 11/18/17 08:37 Metoprolol Tartrate (Lopressor) 25 mg Q12HR ORAL 11/16/17 21:00 12/16/17 20:59 11/18/17 08:38 Nitroglycerin (Ntg) 0.4 mg Q5M X 3 DOSES PRN SL Prn Chest Pain 11/16/17 15:30 12/09/17 14:29 Pantoprazole (Protonix) 40 mg DAILY ORAL 11/17/17 09:00 12/10/17 08:59 11/18/17 08:37 Piperacillin Sod/ Tazobactam Sod 3.375 gm/Sodium Chloride 110 ml @ 27.5 mls/hr Q8HR IVPB 11/16/17 22:00 11/22/17 14:59 11/18/17 05:42 Polyethylene Glycol (Miralax) 17 gm HSPRN PRN ORAL Constipation 11/17/17 11:30 12/09/17 11:29 Sennosides (Senokot) 2 tab DAILY ORAL 11/17/17 09:00 12/09/17 14:29 11/18/17 08:37 Tamsulosin HCl (Flomax) 0.8 mg BEDTIME ORAL 11/16/17 21:00 12/09/17 20:59 11/17/17 20:50 Tizanidine HCl (Zanaflex) 2 mg THREE TIMES A DAY ORAL 11/16/17 18:00 12/09/17 19:59 11/18/17 08:39 ERIN ARIAS 5, 2018 09:19
--- NOTE | 2017-11-18 10:12 | Urology Progress Note ---
Assessment/Plan Assessment/Plan 1. Acute kidney injury, improved. 2. BPH history. 3. Rule out neurogenic bladder. 4. Pyuria. 5. Hematuria. 6. Proteinuria. keep ashford indwelling hand irrigate ashford PRN flomax, proscar, abx asa and lovenox held subq hep added monitor renal fxn cysto later voiding trial later f/u on urine cx Subjective Allergies: Coded Allergies: VINCENT INHIBITORS (Verified Allergy, Mild, 08/06/17) SHELLFISH (Verified Allergy, Unknown, 07/01/11) Subjective all noted, ashford draining well, nurses hand irrigate PRN Objective Last 24 Hour Vital Signs Date Time Temp Pulse Resp B/P (MAP) Pulse Ox O2 Delivery O2 Flow Rate FiO2 11/18/17 08:38 94 169/79 11/18/17 08:00 97.6 66 18 169/79 94 Nasal Cannula 2.0 97.6 11/18/17 07:17 63 16 99 Nasal Cannula 2.0 28 11/18/17 07:05 Nasal Cannula 2.0 28 11/18/17 07:05 60 16 98 Nasal Cannula 2.0 28 11/18/17 07:05 98 Nasal Cannula 2.0 28 11/18/17 05:42 68 141/68 11/18/17 04:09 68 16 99 Nasal Cannula 2.0 28 11/18/17 04:00 98.1 72 18 141/68 97 Nasal Cannula 2.0 98.1 11/18/17 03:55 66 18 96 Nasal Cannula 2.0 28 11/18/17 03:05 64 148/70 11/18/17 02:59 Nasal Cannula 2.0 28 11/18/17 02:59 Nasal Cannula 2.0 11/18/17 00:00 97.5 61 18 144/76 99 Nasal Cannula 2.0 97.5 11/17/17 20:49 60 149/60 11/17/17 20:17 66 16 99 Nasal Cannula 2.0 28 11/17/17 20:02 Nasal Cannula 2.0 28 11/17/17 20:02 98 Nasal Cannula 2.0 28 11/17/17 20:01 70 16 98 Nasal Cannula 2.0 28 11/17/17 20:00 97.5 60 18 149/70 99 Nasal Cannula 2.0 97.5 11/17/17 18:09 62 169/72 3//18 16:15 98.2 94 20 135/77 Room Air 98.2 11/17/17 15:24 67 16 98 Nasal Cannula 2.0 28 11/17/17 15:24 Nasal Cannula 2.0 11/17/17 14:22 157/72 11/17/17 12:09 88 160/76 11/17/17 11:45 98.4 88 18 160/76 94 Nasal Cannula 2.0 98.4 11/17/17 11:05 64 16 98 Nasal Cannula 2.0 28 11/17/17 11:05 Nasal Cannula 2.0 Intake and Output 11/17/17 11/18/17 19:00 07:00 Intake Total 704 ml 617.0 ml Output Total 850 ml 2500 ml Balance -146 ml -1883.0 ml Free Water 260 ml 100 ml IV Total 110.0 ml Tube Feeding 444 ml 407 ml Output Urine Total 850 ml 2500 ml # Bowel Movements 1 1 Microbiology Date/Time Source Procedure Growth Status 11/09/17 10:15 Blood Blood Culture - Final NO GROWTH AFTER 5 DAYS Complete 11/12/17 11:02 Body Fluid Pleura, Rt Lung Gram Stain - Final Complete 11/12/17 11:02 Body Fluid Pleura, Rt Lung Body Fluid Culture - Final NO GROWTH Complete 11/12/17 22:30 Sputum Induced Gram Stain - Final Complete 11/12/17 22:30 Sputum Induced Sputum Culture - Final NORMAL UPPER RESPIRATORY DELMY PRESENT Complete 11/16/17 14:00 Indwelling Cath Urine Culture - Preliminary NO GROWTH AFTER 24 HOURS Resulted Current Medications Medications (Trade) Dose Ordered Sig/Scot Route PRN Reason Start Time Stop Time Status Last Admin Dose Admin Acetaminophen/ Hydrocodone Bitart ([place] 7.5/325) 1 tab Q4H ORAL 11/16/17 18:30 11/20/17 22:29 11/18/17 05:42 Albuterol/ Ipratropium (Albuterol/ Ipratropium) 3 ml Q4HRT HHN 11/16/17 19:00 11/19/17 18:59 11/18/17 07:05 Dextrose (Dextrose 50%) STAT PRN IV Hypoglycemia 11/17/17 11:30 12/09/17 11:29 Diltiazem HCl (Cardizem) 60 mg EVERY 6 HOURS ORAL 11/16/17 18:00 12/13/17 17:59 11/18/17 05:42 Docusate Sodium (Colace) 100 mg TWICE A DAY GT 11/18/17 18:00 12/18/17 17:59 Finasteride (Proscar) 5 mg DAILY ORAL 11/17/17 09:00 12/10/17 08:59 11/18/17 08:37 Furosemide (Lasix) 40 mg DAILY IV 11/17/17 09:00 12/15/17 14:29 11/18/17 08:38 Heparin Sodium (Porcine) (Heparin 5000 units/ml) 5,000 units EVERY 12 HOURS SUBQ 11/16/17 21:00 12/16/17 20:59 Lidocaine (Lidoderm 5% PATCH) 1 patch DAILY TDERMAL 11/17/17 09:00 12/10/17 08:59 11/18/17 08:39 Methylprednisolone Sodium Succinate (Solu-MEDROL) 20 mg EVERY 12 HOURS IVP 11/18/17 21:00 12/18/17 20:59 Metoprolol Tartrate (Lopressor) 25 mg Q12HR ORAL 11/16/17 21:00 12/16/17 20:59 11/18/17 08:38 Nitroglycerin (Ntg) 0.4 mg Q5M X 3 DOSES PRN SL Prn Chest Pain 11/16/17 15:30 12/09/17 14:29 Pantoprazole (Protonix) 40 mg DAILY ORAL 11/17/17 09:00 12/10/17 08:59 11/18/17 08:37 Piperacillin Sod/ Tazobactam Sod 3.375 gm/Sodium Chloride 110 ml @ 27.5 mls/hr Q8HR IVPB 11/16/17 22:00 11/22/17 14:59 11/18/17 05:42 Polyethylene Glycol (Miralax) 17 gm HSPRN PRN ORAL Constipation 11/17/17 11:30 12/09/17 11:29 Sennosides (Senokot) 2 tab DAILY ORAL 11/17/17 09:00 12/09/17 14:29 11/18/17 08:37 Tamsulosin HCl (Flomax) 0.8 mg BEDTIME ORAL 11/16/17 21:00 12/09/17 20:59 11/17/17 20:50 Tizanidine HCl (Zanaflex) 2 mg THREE TIMES A DAY ORAL 11/16/17 18:00 12/09/17 19:59 11/18/17 08:39 Height (Feet): 5 Height (Inches): 7.00 Weight (Pounds): 128 Objective exam shows ashford indwelling, urine is marilu/blood-tinged PAULINE MUNOZ Nov 18, 2017 10:12
--- NOTE | 2017-11-18 11:40 | GI Progress Note ---
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 Kelly. Assessment/Plan hepatitis panel negative s/p PEG abd binder GTF tolerated dc planning per primary team The patient was seen and examined at bedside and all new and available data was reviewed in the patients chart. I agree with the above findings, impression and plan. (Patient seen earlier today. Signature stamp does not reflect patient encounter time.). - Rivas Kelly MD Subjective Subjective limited Objective Last 24 Hour Vital Signs Date Time Temp Pulse Resp B/P (MAP) Pulse Ox O2 Delivery O2 Flow Rate FiO2 11/18/17 11:12 62 16 92 Nasal Cannula 2.0 28 11/18/17 08:38 94 169/79 11/18/17 08:00 97.6 66 18 169/79 94 Nasal Cannula 2.0 97.6 11/18/17 07:17 63 16 99 Nasal Cannula 2.0 28 11/18/17 07:05 Nasal Cannula 2.0 28 11/18/17 07:05 60 16 98 Nasal Cannula 2.0 28 11/18/17 07:05 98 Nasal Cannula 2.0 28 11/18/17 05:42 68 141/68 11/18/17 04:09 68 16 99 Nasal Cannula 2.0 28 11/18/17 04:00 98.1 72 18 141/68 97 Nasal Cannula 2.0 98.1 11/18/17 03:55 66 18 96 Nasal Cannula 2.0 28 11/18/17 03:05 64 148/70 11/18/17 02:59 Nasal Cannula 2.0 28 11/18/17 02:59 Nasal Cannula 2.0 11/18/17 00:00 97.5 61 18 144/76 99 Nasal Cannula 2.0 97.5 11/17/17 20:49 60 149/60 11/17/17 20:17 66 16 99 Nasal Cannula 2.0 28 11/17/17 20:02 Nasal Cannula 2.0 28 11/17/17 20:02 98 Nasal Cannula 2.0 28 11/17/17 20:01 70 16 98 Nasal Cannula 2.0 28 11/17/17 20:00 97.5 60 18 149/70 99 Nasal Cannula 2.0 97.5 11/17/17 18:09 62 169/72 11/17/17 16:15 98.2 94 20 135/77 Room Air 98.2 11/17/17 15:24 67 16 98 Nasal Cannula 2.0 28 11/17/17 15:24 Nasal Cannula 2.0 11/17/17 14:22 157/72 11/17/17 12:09 88 160/76 11/17/17 11:45 98.4 88 18 160/76 94 Nasal Cannula 2.0 98.4 Intake and Output 11/17/17 11/18/17 19:00 07:00 Intake Total 704 ml 617.0 ml Output Total 850 ml 2500 ml Balance -146 ml -1883.0 ml Free Water 260 ml 100 ml IV Total 110.0 ml Tube Feeding 444 ml 407 ml Output Urine Total 850 ml 2500 ml # Bowel Movements 1 1 Height (Feet): 5 Height (Inches): 7.00 Weight (Pounds): 128 General Appearance: WD/WN, no apparent distress, alert Cardiovascular: normal rate Respiratory/Chest: normal breath sounds, no respiratory distress Abdominal Exam: normal bowel sounds, non tender, soft, GT site - c/d/i Extremities: normal range of motion, non-tender Kimberlyn West N.P. Nov 18, 2017 11:40 MARK KELLY Nov 26, 2017 13:23
[2017-11-18 12:00] VITALS: BP 138/66
[2017-11-18 12:19] LABS: HEMOGLOBIN 11.2 G/DL (14.2-18.0); MEAN CORPUSCULAR VOLUME 96 FL (80-99); PLATELET COUNT 111 K/UL (150-450); RED BLOOD COUNT 3.77 M/UL (4.70-6.10); RED CELL DISTRIBUTION WIDTH 16.3 % (11.6-14.8); WHITE BLOOD COUNT 13.1 K/UL (4.8-10.8)
[2017-11-18 12:44] LABS: ANION GAP 7 mmol/L (5-15); BLOOD UREA NITROGEN 41 mg/dL (7-18); CALCIUM 9.5 MG/DL (8.5-10.1); CARBON DIOXIDE 40 MMOL/L (21-32); CHLORIDE 102 MMOL/L (98-107); CREATININE 1.2 MG/DL (0.55-1.30); POTASSIUM 4.1 MMOL/L (3.5-5.1); SODIUM 149 MMOL/L (136-145)
[2017-11-18 16:00] VITALS: BP 150/111
[2017-11-18] MEDS: Docusate 100mg/10ml Liq GT SCH (17:14)
[2017-11-18 20:00] VITALS: BP 134/70
--- NOTE | 2017-11-18 21:09 | General Progress Note ---
Assessment/Plan Assessment/Plan 1) He is in CHF 2) Charla has recovered 3) Dysphagia s/p GT 4) S/p L hemispheric CVA Plan: Will start Lasix 40 mg per Gt daily DC planning Subjective Allergies: Coded Allergies: VINCENT INHIBITORS (Verified Allergy, Mild, 08/06/17) SHELLFISH (Verified Allergy, Unknown, 07/01/11) Subjective He is doing bnetter, started TF per GT, He had good diuresis Objective Last 24 Hour Vital Signs Date Time Temp Pulse Resp B/P (MAP) Pulse Ox O2 Delivery O2 Flow Rate FiO2 11/18/17 20:00 97.2 60 20 134/70 100 97.2 11/18/17 19:56 63 18 98 Nasal Cannula 2.0 28 11/18/17 19:22 Nasal Cannula 3.0 32 11/18/17 19:22 62 18 98 Nasal Cannula 3.0 32 11/18/17 19:22 98 Nasal Cannula 3.0 32 11/18/17 17:15 60 150/111 11/18/17 16:00 97.7 57 20 150/111 98 97.7 11/18/17 15:55 65 20 99 Nasal Cannula 2.0 28 11/18/17 15:45 60 20 93 Nasal Cannula 2.0 28 11/18/17 13:19 60 138/66 11/18/17 12:00 97.4 60 18 138/66 94 Nasal Cannula 2.0 97.4 11/18/17 11:22 62 16 98 Nasal Cannula 2.0 28 11/18/17 11:12 62 16 92 Nasal Cannula 2.0 28 11/18/17 08:38 94 169/79 11/18/17 08:00 97.6 66 18 169/79 94 Nasal Cannula 2.0 97.6 11/18/17 07:17 63 16 99 Nasal Cannula 2.0 28 11/18/17 07:05 Nasal Cannula 2.0 28 11/18/17 07:05 60 16 98 Nasal Cannula 2.0 28 11/18/17 07:05 98 Nasal Cannula 2.0 28 11/18/17 05:42 68 141/68 11/18/17 04:09 68 16 99 Nasal Cannula 2.0 28 11/18/17 04:00 98.1 72 18 141/68 97 Nasal Cannula 2.0 98.1 11/18/17 03:55 66 18 96 Nasal Cannula 2.0 28 11/18/17 03:05 64 148/70 11/18/17 02:59 Nasal Cannula 2.0 28 11/18/17 02:59 Nasal Cannula 2.0 11/18/17 00:00 97.5 61 18 144/76 99 Nasal Cannula 2.0 97.5 Intake and Output 11/17/17 11/18/17 19:00 07:00 Intake Total 704 ml 617.0 ml Output Total 850 ml 2500 ml Balance -146 ml -1883.0 ml Free Water 260 ml 100 ml IV Total 110.0 ml Tube Feeding 444 ml 407 ml Output Urine Total 850 ml 2500 ml # Bowel Movements 1 1 Laboratory Tests 11/18/17 11:10: White Blood Count 13.1H, Red Blood Count 3.77L, Hemoglobin 11.2L, Hematocrit 36.0L, Mean Corpuscular Volume 96, Mean Corpuscular Hemoglobin 29.7, Mean Corpuscular Hemoglobin Concent 31.1L, Red Cell Distribution Width 16.3H, Platelet Count 111L, Mean Platelet Volume 7.9, Neutrophils (%) (Auto) , Lymphocytes (%) (Auto) , Monocytes (%) (Auto) , Eosinophils (%) (Auto) , Basophils (%) (Auto) , Differential Total Cells Counted 100, Neutrophils % ( Manual) 94H, Lymphocytes % (Manual) 3L, Monocytes % (Manual) 3, Eosinophils % ( Manual) 0, Basophils % (Manual) 0, Band Neutrophils 0, Platelet Estimate DecreasedL, Platelet Morphology Normal, Hypochromasia 1+, Anisocytosis 1+, Sodium Level 149H, Potassium Level 4.1, Chloride Level 102, Carbon Dioxide Level 40H, Anion Gap 7, Blood Urea Nitrogen 41H, Creatinine 1.2, Estimat Glomerular Filtration Rate , Glucose Level 153H, Calcium Level 9.5, Pro-B-Type Natriuretic Peptide 06692N Height (Feet): 5 Height (Inches): 7.00 Weight (Pounds): 128 General Appearance: WD/WN, no apparent distress, alert EENT: PERRL/EOMI, normal ENT inspection Cardiovascular: normal peripheral pulses, normal rate Respiratory/Chest: decreased breath sounds Abdomen: normal bowel sounds, non tender, soft Edema: mild edema 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
[2017-11-18] MEDS: Tamsulosin 0.4mg cap ORAL SCH (21:40)
[2017-11-19] VITALS: BP 142/65
[2017-11-19] MEDS: dilTIAZem HCl 60mg tab ORAL SCH ×3 (00:19→12:45)
[2017-11-19] MEDS: HYDROcodone/Acetamin 7.5/325 tab ORAL SCH ×3 (02:15→10:30)
[2017-11-19] MEDS: Albuterol/Ipratropium 3ml neb HHN SCH ×3 (02:43→11:34)
[2017-11-19 04:00] VITALS: BP 148/72
[2017-11-19] MEDS: Piperacillin/Tazobactam 3.375 GM in NS 110 ML IVPB SCH (05:16)
[2017-11-19 08:00] VITALS: BP 155/63
[2017-11-19] MEDS: Docusate 100mg/10ml Liq GT SCH (08:44)
[2017-11-19] MEDS: Sennosides 8.6mg ORAL SCH (08:44)
[2017-11-19] MEDS: Metoprolol 25mg tab ORAL SCH (08:44)
[2017-11-19] MEDS: Solu-MEDROL 40mg Inj IVP SCH (08:45)
[2017-11-19 08:46] LABS: HEMATOCRIT 35.6 % (42.0-52.0); MEAN CORPUSCULAR VOLUME 97 FL (80-99); PLATELET COUNT 87 K/UL (150-450); RED BLOOD COUNT 3.68 M/UL (4.70-6.10); WHITE BLOOD COUNT 12.3 K/UL (4.8-10.8)
[2017-11-19] MEDS: Heparin 5000 units/ml inj SUBQ SCH (09:00)
[2017-11-19] MEDS ORDERED: Furosemide 40mg tab GT SCH (09:00)
[2017-11-19 09:39] LABS: ANION GAP 5 mmol/L (5-15); BLOOD UREA NITROGEN 38 mg/dL (7-18); CALCIUM 9.7 MG/DL (8.5-10.1); CARBON DIOXIDE 40 MMOL/L (21-32); CHLORIDE 103 MMOL/L (98-107); CREATININE 1.3 MG/DL (0.55-1.30); POTASSIUM 3.2 MMOL/L (3.5-5.1); SODIUM 148 MMOL/L (136-145)
--- NOTE | 2017-11-19 10:34 | Urology Progress Note ---
Assessment/Plan Assessment/Plan 1. Acute kidney injury, improved. 2. BPH history. 3. Rule out neurogenic bladder. 4. Pyuria. 5. Hematuria. 6. Proteinuria. keep ashford indwelling hand irrigate [place] PRN flomax, proscar, abx asa and lovenox held subq hep added monitor renal fxn cysto later voiding trial later d/w Dr. Zamorano, pt to go to [facility] with [facility] out[facility] f/u Subjective Allergies: Coded Allergies: VINCENT INHIBITORS (Verified Allergy, Mild, 08/06/17) SHELLFISH (Verified Allergy, Unknown, 07/01/11) Subjective all noted, ashford draining well, pt going to [facility] today Objective Last 24 Hour Vital Signs Date Time Temp Pulse Resp B/P (MAP) Pulse Ox O2 Delivery O2 Flow Rate FiO2 11/19/17 08:44 68 155/63 11/19/17 08:00 97.5 68 20 155/63 94 Nasal Cannula 2.0 97.5 11/19/17 07:56 Nasal Cannula 3.0 32 11/19/17 07:56 70 16 99 Nasal Cannula 3.0 32 11/19/17 07:46 68 18 95 Nasal Cannula 3.0 32 11/19/17 07:45 95 Nasal Cannula 3.0 32 11/19/17 05:17 70 149/69 11/19/17 04:00 97.5 55 20 148/72 92 97.5 11/19/17 02:43 Nasal Cannula 3.0 32 11/19/17 02:43 Nasal Cannula 3.0 28 11/19/17 00:19 95 142/65 11/19/17 00:00 97.7 68 20 142/65 92 97.7 11/18/17 23:14 59 16 99 Nasal Cannula 2.0 28 11/18/17 23:05 57 18 97 Nasal Cannula 2.0 28 11/18/17 21:41 60 134/70 11/18/17 20:00 97.2 60 20 134/70 100 97.2 11/18/17 19:56 63 18 98 Nasal Cannula 2.0 28 11/18/17 19:22 Nasal Cannula 3.0 32 11/18/17 19:22 62 18 98 Nasal Cannula 3.0 32 11/18/17 19:22 98 Nasal Cannula 3.0 32 11/18/17 17:15 60 150/111 11/18/17 16:00 97.7 57 20 150/111 98 97.7 11/18/17 15:55 65 20 99 Nasal Cannula 2.0 28 11/18/17 15:45 60 20 93 Nasal Cannula 2.0 28 11/18/17 13:19 60 138/66 11/18/17 12:00 97.4 60 18 138/66 94 Nasal Cannula 2.0 97.4 11/18/17 11:22 62 16 98 Nasal Cannula 2.0 28 11/18/17 11:12 62 16 92 Nasal Cannula 2.0 28 Intake and Output 11/18/17 11/19/17 19:00 07:00 Output Total 1200 ml Balance -1200 ml Output Urine Total 1200 ml # Voids 3 # Bowel Movements 1 2 Microbiology Date/Time Source Procedure Growth Status 11/09/17 10:15 Blood Blood Culture - Final NO GROWTH AFTER 5 DAYS Complete 11/12/17 11:02 Body Fluid Pleura, Rt Lung Gram Stain - Final Complete 11/12/17 11:02 Body Fluid Pleura, Rt Lung Body Fluid Culture - Final NO GROWTH Complete 11/12/17 22:30 Sputum Induced Gram Stain - Final Complete 11/12/17 22:30 Sputum Induced Sputum Culture - Final NORMAL UPPER RESPIRATORY DELMY PRESENT Complete 11/16/17 14:00 Indwelling Cath Urine Culture - Final NO GROWTH AFTER 48 HOURS Complete Current Medications Medications (Trade) Dose Ordered Sig/Scot Route PRN Reason Start Time Stop Time Status Last Admin Dose Admin Acetaminophen/ Hydrocodone Bitart ([place] 7.5/325) 1 tab Q4H ORAL 11/16/17 18:30 11/20/17 22:29 11/19/17 05:48 Albuterol/ Ipratropium (Albuterol/ Ipratropium) 3 ml Q4HRT HHN 11/16/17 19:00 11/19/17 18:59 11/19/17 08:11 Dextrose (Dextrose 50%) STAT PRN IV Hypoglycemia 11/17/17 11:30 12/09/17 11:29 Diltiazem HCl (Cardizem) 60 mg EVERY 6 HOURS ORAL 11/16/17 18:00 12/13/17 17:59 11/19/17 05:17 Docusate Sodium (Colace) 100 mg TWICE A DAY GT 11/18/17 18:00 12/18/17 17:59 11/19/17 08:44 Finasteride (Proscar) 5 mg DAILY ORAL 11/17/17 09:00 12/10/17 08:59 11/19/17 08:44 Furosemide (Lasix) 40 mg DAILY GT 11/19/17 09:00 12/19/17 08:59 11/19/17 08:49 Heparin Sodium (Porcine) (Heparin 5000 units/ml) 5,000 units EVERY 12 HOURS SUBQ 11/16/17 21:00 12/16/17 20:59 Lansoprazole (Prevacid) 30 mg DAILY GT 11/19/17 09:00 12/19/17 08:59 11/19/17 08:44 Lidocaine (Lidoderm 5% PATCH) 1 patch DAILY TDERMAL 11/17/17 09:00 12/10/17 08:59 11/19/17 08:45 Methylprednisolone Sodium Succinate (Solu-MEDROL) 20 mg EVERY 12 HOURS IVP 11/18/17 21:00 12/18/17 20:59 11/19/17 08:45 Metoprolol Tartrate (Lopressor) 25 mg Q12HR ORAL 11/16/17 21:00 12/16/17 20:59 11/19/17 08:44 Nitroglycerin (Ntg) 0.4 mg Q5M X 3 DOSES PRN SL Prn Chest Pain 11/16/17 15:30 12/09/17 14:29 Piperacillin Sod/ Tazobactam Sod 3.375 gm/Sodium Chloride 110 ml @ 27.5 mls/hr Q8HR IVPB 11/16/17 22:00 11/22/17 14:59 11/19/17 05:16 Polyethylene Glycol (Miralax) 17 gm HSPRN PRN ORAL Constipation 11/17/17 11:30 12/09/17 11:29 Potassium Chloride (K-Dur) 10 meq DAILY GT 11/19/17 09:00 12/19/17 08:59 11/19/17 08:44 Sennosides (Senokot) 2 tab DAILY ORAL 11/17/17 09:00 12/09/17 14:29 11/19/17 08:44 Tamsulosin HCl (Flomax) 0.8 mg BEDTIME ORAL 11/16/17 21:00 12/09/17 20:59 3/5/18 21:40 Tizanidine HCl (Zanaflex) 2 mg THREE TIMES A DAY ORAL 11/16/17 18:00 12/09/17 19:59 11/19/17 08:47 Laboratory Tests 11/18/17 11:10: White Blood Count 13.1H, Red Blood Count 3.77L, Hemoglobin 11.2L, Hematocrit 36.0L, Mean Corpuscular Volume 96, Mean Corpuscular Hemoglobin 29.7, Mean Corpuscular Hemoglobin Concent 31.1L, Red Cell Distribution Width 16.3H, Platelet Count 111L, Mean Platelet Volume 7.9, Neutrophils (%) (Auto) , Lymphocytes (%) (Auto) , Monocytes (%) (Auto) , Eosinophils (%) (Auto) , Basophils (%) (Auto) , Differential Total Cells Counted 100, Neutrophils % ( Manual) 94H, Lymphocytes % (Manual) 3L, Monocytes % (Manual) 3, Eosinophils % ( Manual) 0, Basophils % (Manual) 0, Band Neutrophils 0, Platelet Estimate DecreasedL, Platelet Morphology Normal, Hypochromasia 1+, Anisocytosis 1+, Sodium Level 149H, Potassium Level 4.1, Chloride Level 102, Carbon Dioxide Level 40H, Anion Gap 7, Blood Urea Nitrogen 41H, Creatinine 1.2, Estimat Glomerular Filtration Rate , Glucose Level 153H, Calcium Level 9.5, Pro-B-Type Natriuretic Peptide [id number] 11/19/17 07:30: White Blood Count 12.3H, Red Blood Count 3.68L, Hemoglobin 11.0L, Hematocrit 35.6L, Mean Corpuscular Volume 97, Mean Corpuscular Hemoglobin 29.8, Mean Corpuscular Hemoglobin Concent 30.8L, Red Cell Distribution Width 16.0H, Platelet Count 87L, Mean Platelet Volume 7.1, Neutrophils (%) (Auto) , Lymphocytes (%) (Auto) , Monocytes (%) (Auto) , Eosinophils (%) (Auto) , Basophils (%) (Auto) , Neutrophils % (Manual) [Pending], Lymphocytes % (Manual) [Pending], Platelet Estimate [Pending], Platelet Morphology [Pending], Sodium Level 148H, Potassium Level 3.2L, Chloride Level 103, Carbon Dioxide Level 40H, Anion Gap 5, Blood Urea Nitrogen 38H, Creatinine 1.3, Estimat Glomerular Filtration Rate , Glucose Level 153H, Calcium Level 9.7 Height (Feet): 5 Height (Inches): 7.00 Weight (Pounds): 128 Objective exam shows [place] indwelling, urine is marilu PAULINE MUNOZ Nov 19, 2017 10:34
--- NOTE | 2017-11-19 10:47 | Pulmonology Progress Note ---
Assessment/Plan Assessment/Plan COPD systolic and diastolic CHF pulm HTN pacemaker atrial fibrillation past stroke with dysarthria, aphasia prostate cancer Hyperkalemia pleural effusion no wheezes; change to GT prednisone 20 mg qd and taper at SNF rales due to CHF; high BNP tolerating GT feeds video swallow report noted - rec puree, nectar cont lasix, HHN, abx dc plan Subjective ROS Limited/Unobtainable: Yes Allergies: Coded Allergies: VINCENT INHIBITORS (Verified Allergy, Mild, 08/06/17) SHELLFISH (Verified Allergy, Unknown, 07/01/11) Objective Last 24 Hour Vital Signs Date Time Temp Pulse Resp B/P (MAP) Pulse Ox O2 Delivery O2 Flow Rate FiO2 11/19/17 08:44 68 155/63 11/19/17 08:00 97.5 68 20 155/63 94 Nasal Cannula 2.0 97.5 11/19/17 07:56 Nasal Cannula 3.0 32 11/19/17 07:56 70 16 99 Nasal Cannula 3.0 32 11/19/17 07:46 68 18 95 Nasal Cannula 3.0 32 11/19/17 07:45 95 Nasal Cannula 3.0 32 11/19/17 05:17 70 149/69 11/19/17 04:00 97.5 55 20 148/72 92 97.5 11/19/17 02:43 Nasal Cannula 3.0 32 11/19/17 02:43 Nasal Cannula 3.0 28 11/19/17 00:19 95 142/65 11/19/17 00:00 97.7 68 20 142/65 92 97.7 11/18/17 23:14 59 16 99 Nasal Cannula 2.0 28 11/18/17 23:05 57 18 97 Nasal Cannula 2.0 28 11/18/17 21:41 60 134/70 11/18/17 20:00 97.2 60 20 134/70 100 97.2 11/18/17 19:56 63 18 98 Nasal Cannula 2.0 28 11/18/17 19:22 Nasal Cannula 3.0 32 11/18/17 19:22 62 18 98 Nasal Cannula 3.0 32 11/18/17 19:22 98 Nasal Cannula 3.0 32 11/18/17 17:15 60 150/111 11/18/17 16:00 97.7 57 20 150/111 98 97.7 11/18/17 15:55 65 20 99 Nasal Cannula 2.0 28 11/18/17 15:45 60 20 93 Nasal Cannula 2.0 28 11/18/17 13:19 60 138/66 11/18/17 12:00 97.4 60 18 138/66 94 Nasal Cannula 2.0 97.4 11/18/17 11:22 62 16 98 Nasal Cannula 2.0 28 11/18/17 11:12 62 16 92 Nasal Cannula 2.0 28 Intake and Output 11/18/17 11/19/17 19:00 07:00 Output Total 1200 ml Balance -1200 ml Output Urine Total 1200 ml # Voids 3 # Bowel Movements 1 2 Respiratory/Chest: crackles/rales Cardiovascular: normal rate, irregularly irregular Microbiology Date/Time Source Procedure Growth Status 11/16/17 14:00 Indwelling Cath Urine Culture - Final NO GROWTH AFTER 48 HOURS Complete Laboratory Tests 11/18/17 11:10: White Blood Count 13.1H, Red Blood Count 3.77L, Hemoglobin 11.2L, Hematocrit 36.0L, Mean Corpuscular Volume 96, Mean Corpuscular Hemoglobin 29.7, Mean Corpuscular Hemoglobin Concent 31.1L, Red Cell Distribution Width 16.3H, Platelet Count 111L, Mean Platelet Volume 7.9, Neutrophils (%) (Auto) , Lymphocytes (%) (Auto) , Monocytes (%) (Auto) , Eosinophils (%) (Auto) , Basophils (%) (Auto) , Differential Total Cells Counted 100, Neutrophils % ( Manual) 94H, Lymphocytes % (Manual) 3L, Monocytes % (Manual) 3, Eosinophils % ( Manual) 0, Basophils % (Manual) 0, Band Neutrophils 0, Platelet Estimate DecreasedL, Platelet Morphology Normal, Hypochromasia 1+, Anisocytosis 1+, Sodium Level 149H, Potassium Level 4.1, Chloride Level 102, Carbon Dioxide Level 40H, Anion Gap 7, Blood Urea Nitrogen 41H, Creatinine 1.2, Estimat Glomerular Filtration Rate , Glucose Level 153H, Calcium Level 9.5, Pro-B-Type Natriuretic Peptide [id number] 11/19/17 07:30: White Blood Count 12.3H, Red Blood Count 3.68L, Hemoglobin 11.0L, Hematocrit 35.6L, Mean Corpuscular Volume 97, Mean Corpuscular Hemoglobin 29.8, Mean Corpuscular Hemoglobin Concent 30.8L, Red Cell Distribution Width 16.0H, Platelet Count 87L, Mean Platelet Volume 7.1, Neutrophils (%) (Auto) , Lymphocytes (%) (Auto) , Monocytes (%) (Auto) , Eosinophils (%) (Auto) , Basophils (%) (Auto) , Differential Total Cells Counted 100, Neutrophils % ( Manual) 96H, Lymphocytes % (Manual) 2L, Monocytes % (Manual) 2, Eosinophils % ( Manual) 0, Basophils % (Manual) 0, Band Neutrophils 0, Platelet Estimate DecreasedL, Platelet Morphology Normal, Hypochromasia 1+, Anisocytosis 1+, Sodium Level 148H, Potassium Level 3.2L, Chloride Level 103, Carbon Dioxide Level 40H, Anion Gap 5, Blood Urea Nitrogen 38H, Creatinine 1.3, Estimat Glomerular Filtration Rate , Glucose Level 153H, Calcium Level 9.7 Current Medications Medications (Trade) Dose Ordered Sig/Scot Route PRN Reason Start Time Stop Time Status Last Admin Dose Admin Acetaminophen/ Hydrocodone Bitart ([place] 7.5/325) 1 tab Q4H ORAL 11/16/17 18:30 11/20/17 22:29 11/19/17 05:48 Albuterol/ Ipratropium (Albuterol/ Ipratropium) 3 ml Q4HRT HHN 11/16/17 19:00 11/19/17 18:59 11/19/17 08:11 Dextrose (Dextrose 50%) STAT PRN IV Hypoglycemia 11/17/17 11:30 12/09/17 11:29 Diltiazem HCl (Cardizem) 60 mg EVERY 6 HOURS ORAL 11/16/17 18:00 12/13/17 17:59 11/19/17 05:17 Docusate Sodium (Colace) 100 mg TWICE A DAY GT 11/18/17 18:00 12/18/17 17:59 11/19/17 08:44 Finasteride (Proscar) 5 mg DAILY ORAL 11/17/17 09:00 12/10/17 08:59 11/19/17 08:44 Furosemide (Lasix) 40 mg DAILY GT 11/19/17 09:00 12/19/17 08:59 11/19/17 08:49 Heparin Sodium (Porcine) (Heparin 5000 units/ml) 5,000 units EVERY 12 HOURS SUBQ 11/16/17 21:00 12/16/17 20:59 Lansoprazole (Prevacid) 30 mg DAILY GT 11/19/17 09:00 12/19/17 08:59 11/19/17 08:44 Lidocaine (Lidoderm 5% PATCH) 1 patch DAILY TDERMAL 11/17/17 09:00 12/10/17 08:59 11/19/17 08:45 Methylprednisolone Sodium Succinate (Solu-MEDROL) 20 mg EVERY 12 HOURS IVP 11/18/17 21:00 12/18/17 20:59 11/19/17 08:45 Metoprolol Tartrate (Lopressor) 25 mg Q12HR ORAL 11/16/17 21:00 12/16/17 20:59 11/19/17 08:44 Nitroglycerin (Ntg) 0.4 mg Q5M X 3 DOSES PRN SL Prn Chest Pain 11/16/17 15:30 12/09/17 14:29 Piperacillin Sod/ Tazobactam Sod 3.375 gm/Sodium Chloride 110 ml @ 27.5 mls/hr Q8HR IVPB 11/16/17 22:00 11/22/17 14:59 11/19/17 05:16 Polyethylene Glycol (Miralax) 17 gm HSPRN PRN ORAL Constipation 11/17/17 11:30 12/09/17 11:29 Potassium Chloride (K-Dur) 10 meq DAILY GT 11/19/17 09:00 12/19/17 08:59 11/19/17 08:44 Sennosides (Senokot) 2 tab DAILY ORAL 11/17/17 09:00 12/09/17 14:29 11/19/17 08:44 Tamsulosin HCl (Flomax) 0.8 mg BEDTIME ORAL 11/16/17 21:00 12/09/17 20:59 11/18/17 21:40 Tizanidine HCl (Zanaflex) 2 mg THREE TIMES A DAY ORAL 11/16/17 18:00 12/09/17 19:59 11/19/17 08:47 ERIN ARIAS 6, 2018 10:47
[2017-11-19] MEDS ORDERED: DILTIAZEM HCL60 MG GT (10:59)
[2017-11-19] MEDS ORDERED: DOCUSATE S50 MG/5 ML PO (11:00)
[2017-11-19] MEDS ORDERED: FUROSEMIDE40 MG GT (11:01)
[2017-11-19] MEDS ORDERED: HEPARIN SO5000 UNIT2 SUBQ (11:03)
[2017-11-19] MEDS ORDERED: NORCO 7.5/3251 EA ORAL (11:03)
[2017-11-19] MEDS ORDERED: LANSOPRAZOLE30 MG GT (11:04)
[2017-11-19] MEDS ORDERED: LIDOCAINE700 M1 TP (11:04)
[2017-11-19] MEDS ORDERED: IPRATROPIU0.2 MG/1 M HHN (11:04)
[2017-11-19] MEDS ORDERED: METOPROLOL TART25 MG GT (11:05)
[2017-11-19] MEDS ORDERED: NITROGLYCERIN0.4 MG SL (11:05)
[2017-11-19] MEDS ORDERED: MIRALAX17 G2 GT (11:06)
[2017-11-19] MEDS ORDERED: POTASSIUM CHLO10 ME3 (11:07)
[2017-11-19] MEDS ORDERED: SENNOSIDES8.6 MG GT (11:08)
[2017-11-19] MEDS ORDERED: PREDNISONE20 M1 GT (11:08)
[2017-11-19] MEDS ORDERED: ZANAFLEX2 M1 GT (11:10)
[2017-11-19] MEDS ORDERED: FLOMAX0.4 MG GT (11:10)
[2017-11-19 12:45] VITALS: BP 147/65
[2017-11-19] MEDS ORDERED: Tubing IV Secondary IV ONE (14:17)
[2017-11-19] MEDS ORDERED: NS 275ml ONE ×2 (14:17)
--- NOTE | 2017-11-19 16:47 | GI Progress Note ---
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 Kelly. Assessment/Plan hepatitis panel negative s/p PEG abd binder GTF tolerated dc planning per primary team The patient was seen and examined at bedside and all new and available data was reviewed in the patients chart. I agree with the above findings, impression and plan. (Patient seen earlier today. Signature stamp does not reflect patient encounter time.). - Rivas Kelly MD Subjective Subjective limited Objective Last 24 Hour Vital Signs Date Time Temp Pulse Resp B/P (MAP) Pulse Ox O2 Delivery O2 Flow Rate FiO2 11/19/17 12:45 62 147/65 11/19/17 11:45 69 16 Nasal Cannula 3.0 32 11/19/17 11:30 65 18 Nasal Cannula 3.0 32 11/19/17 08:44 68 155/63 11/19/17 08:00 97.5 68 20 155/63 94 Nasal Cannula 2.0 97.5 11/19/17 07:56 Nasal Cannula 3.0 32 11/19/17 07:56 70 16 99 Nasal Cannula 3.0 32 11/19/17 07:46 68 18 95 Nasal Cannula 3.0 32 11/19/17 07:45 95 Nasal Cannula 3.0 32 11/19/17 05:17 70 149/69 11/19/17 04:00 97.5 55 20 148/72 92 97.5 11/19/17 02:43 Nasal Cannula 3.0 32 11/19/17 02:43 Nasal Cannula 3.0 28 11/19/17 00:19 95 142/65 11/19/17 00:00 97.7 68 20 142/65 92 97.7 11/18/17 23:14 59 16 99 Nasal Cannula 2.0 28 11/18/17 23:05 57 18 97 Nasal Cannula 2.0 28 11/18/17 21:41 60 134/70 11/18/17 20:00 97.2 60 20 134/70 100 97.2 11/18/17 19:56 63 18 98 Nasal Cannula 2.0 28 11/18/17 19:22 Nasal Cannula 3.0 32 11/18/17 19:22 62 18 98 Nasal Cannula 3.0 32 11/18/17 19:22 98 Nasal Cannula 3.0 32 11/18/17 17:15 60 150/111 Intake and Output 11/18/17 11/19/17 19:00 07:00 Output Total 1200 ml Balance -1200 ml Output Urine Total 1200 ml # Voids 3 # Bowel Movements 1 2 Laboratory Tests Test 11/19/17 07:30 White Blood Count 12.3 K/UL (4.8-10.8) H Red Blood Count 3.68 M/UL (4.70-6.10) L Hemoglobin 11.0 G/DL (14.2-18.0) L Hematocrit 35.6 % (42.0-52.0) L Mean Corpuscular Volume 97 FL (80-99) Mean Corpuscular Hemoglobin 29.8 PG (27.0-31.0) Mean Corpuscular Hemoglobin Concent 30.8 G/DL (32.0-36.0) L Red Cell Distribution Width 16.0 % (11.6-14.8) H Platelet Count 87 K/UL (150-450) L Mean Platelet Volume 7.1 FL (6.5-10.1) Neutrophils (%) (Auto) % (45.0-75.0) Lymphocytes (%) (Auto) % (20.0-45.0) Monocytes (%) (Auto) % (1.0-10.0) Eosinophils (%) (Auto) % (0.0-3.0) Basophils (%) (Auto) % (0.0-2.0) Differential Total Cells Counted 100 Neutrophils % (Manual) 96 % (45-75) H Lymphocytes % (Manual) 2 % (20-45) L Monocytes % (Manual) 2 % (1-10) Eosinophils % (Manual) 0 % (0-3) Basophils % (Manual) 0 % (0-2) Band Neutrophils 0 % (0-8) Platelet Estimate Decreased L Platelet Morphology Normal Hypochromasia 1+ Anisocytosis 1+ Sodium Level 148 MMOL/L (136-145) H Potassium Level 3.2 MMOL/L (3.5-5.1) L Chloride Level 103 MMOL/L (98-107) Carbon Dioxide Level 40 MMOL/L (21-32) H Anion Gap 5 mmol/L (5-15) Blood Urea Nitrogen 38 mg/dL (7-18) H Creatinine 1.3 MG/DL (0.55-1.30) Estimat Glomerular Filtration Rate mL/min (>60) Glucose Level 153 MG/DL (74-106) H Calcium Level 9.7 MG/DL (8.5-10.1) Height (Feet): 5 Height (Inches): 7.00 Weight (Pounds): 128 General Appearance: WD/WN, no apparent distress, alert Cardiovascular: normal rate Respiratory/Chest: normal breath sounds, no respiratory distress Abdominal Exam: normal bowel sounds, non tender, soft, GT site - c/d/i Extremities: non-tender Kimberlyn West N.P. Nov 19, 2017 16:46 MARK KELLY Nov 26, 2017 13:33
--- NOTE | 2017-11-25 23:07 | Discharge Summary ---
Discharge Summary Hospital Course Date of Admission Nov 09, 2017 at 10:50 Date of Discharge Nov 19, 2017 at 14:18 Admitting Diagnosis loer g.i.bleed,copd HPI Chris Lo is a 72 year old male who was admitted on Nov 09, 2017 at 10:50 for Lower Gastrointestinal Bleed/Chronic Obstructive Hospital Course [id number] Discharge Discharge Disposition Patient was discharged to SNF/Subacute Facility(03) Discharge Diagnoses: Katja Diaz NP Nov 25, 2017 23:07
--- NOTE | 2017-11-26 02:30 | Discharge Summary 2 SIG ---
DATE OF ADMISSION: 11/09/2017 DATE OF DISCHARGE: 11/19/2017 CONSULTANTS: 1. Jaycob Kelly M.D. 2. Matt Calvert M.D. 3. Liban Hammer M.D. BRIEF HOSPITAL COURSE: The patient is a 72-year-old male with history of severe congestive heart failure, COPD, permanent pacemaker, atrial fibrillation, and prior GI bleed, who had multiple hospitalizations for above problems. The patient also had chronic back pain, presented to ED for severe unrelenting back pain and unable to walk. The pain was worse in the left leg. Pain was described to be 10/10 and complained that he has never experienced pain like this before. He also complained of rectal bleeding and complained to be straining with bowel movement. He had history of GI bleed in the past. Endoscopies then were negative. On evaluation at ED, blood work showed no leukocytosis. Hemoglobin was 10.6 and hematocrit 33.9. He had normal lactate and troponin. His BNP was elevated at 6826. Chest x-ray showed large pulmonary effusion. He was given breathing treatments. He underwent CT of the chest that showed right lower lung infiltrate suggestive of pneumonia. He was pancultured and antibiotics were started. He also had a CT on the LS spine that showed spinal stenosis, DJD, and foraminal stenosis on the left L5-S1. He was then admitted to medical floor for evaluation of back pain and congestive heart failure with pleural effusion. He was given pain management and was placed on nebulizer treatments for COPD. He was given diuretics. He was followed by Pulmonary Service. On 11/12/2017, he underwent thoracentesis of the right lung yielding 50 mL of fluid. Pathology report was negative for malignant cells. He had worsening acute kidney injury. Initial creatinine 1.1, came up to level of 4.5. He needed Reyes catheter. Apparently, the Reyes catheter was not draining much. Reyes catheter was removed and apparently had difficulty inserting. Dr. Calvert was then consulted. There was restriction on attempt to pass a regular Reyes catheter. He was then able to put in a an 18-Italian coude catheter. Catheter was left indwelling for accurate urine output monitoring. He was also started on Flomax and Proscar and aspirin and Lovenox were placed on hold. He was placed on the p.r.n. hand Reyes irrigation. Minimal clots obtained. He failed video swallow evaluation done on 11/12/2017. Per speech therapy recommendation, placed the patient on NPO with non-oral feedings. Dr. Kelly was then consulted for percutaneous endoscopic gastrostomy tube placement and the patient underwent EGD with PEG on 11/15/2017. He was placed on abdominal binder with HOB elevated at all times. Tube feeding was eventually started the following day. The patient wanted to eat orally aside from G-tube feed. He then again underwent a repeat video swallow examination with recommendation to continue long-term nonoral feeding as means of primary nutrition and hydration and for p.o. trials with speech therapist and can have nectar thick at teaspoon level only. He was placed on strict aspiration precaution as the patient has high risk for chronic aspiration due to overall pharyngeal weakness. He was tolerating tube feeding well. IV steroids were tapered to prednisone via G-tube. The patient continued to have rales due to CHF with high BNP and was given diuretics. He was eventually discharged to halfway with tapering doses of prednisone via G-tube. FINAL DIAGNOSES: 1. Acute kidney injury, recovered. 2. Dysphagia, status post gastrostomy tube placement. 3. Old left hemispheric cerebrovascular accident. 4. Acute on chronic systolic and diastolic congestive heart failure 5. Acute chronic obstructive pulmonary disease. 6. Pulmonary hypertension. 7. Pacemaker. 8. Atrial fibrillation. 9. Old stroke with dysarthria and aphasia. 10. Prostate cancer. 11. Hyperkalemia. 12. Pleural effusion, status post thoracentesis. 13. Hematuria. 14. Benign prostatic hypertrophy by history. 15. Anemia. DISPOSITION: The patient was discharged to [facility]. DISCHARGE MEDICATIONS: Refer to medication list. Vinicius Zamorano M.D. I have been assigned to dictate discharge summary on this account and I was not involved in the patient's management. Katja Diaz N.P. DR: KATARZYNA JOB#: [id number] CC: AN
== END 2017-11-19 14:18 | DRG 292 ==
LOC: EMR 10:10 → 4W 10:50 → EDBEDREQ 17:02 → 4W 18:50 → 2E 11-13 10:53 → 4E 11-16 15:20
PROC: 0W993ZX Drainage of Right Pleural Cavity, Percutaneous Approach, Diagnostic (ICD-10-PCS; principal; 2017-11-12)
PROC: 0DH63UZ Insertion of Feeding Device into Stomach, Percutaneous Approach (ICD-10-PCS; 2017-11-15 09:45)
DX: I50.43 Acute on chronic combined systolic (congestive) and diastolic (congestive) heart failure (principal); J90 Pleural effusion, not elsewhere classified; N17.9 Acute kidney failure, unspecified; I27.20 Pulmonary hypertension, unspecified; I69.954 Hemiplegia and hemiparesis following unspecified cerebrovascular disease affecting left non-dominant side; R13.10 Dysphagia, unspecified; J44.1 Chronic obstructive pulmonary disease with (acute) exacerbation; N13.8 Other obstructive and reflux uropathy; K62.5 Hemorrhage of anus and rectum; E87.5 Hyperkalemia; I48.2 Chronic atrial fibrillation; I69.922 Dysarthria following unspecified cerebrovascular disease; M48.00 Spinal stenosis, site unspecified; M51.26 Other intervertebral disc displacement, lumbar region; M54.32 Sciatica, left side; K29.60 Other gastritis without bleeding; C61 Malignant neoplasm of prostate; M48.061 Spinal stenosis, lumbar region without neurogenic claudication; M47.9 Spondylosis, unspecified; R31.9 Hematuria, unspecified; D50.0 Iron deficiency anemia secondary to blood loss (chronic); N40.1 Benign prostatic hyperplasia with lower urinary tract symptoms; R33.8 Other retention of urine; Z95.1 Presence of aortocoronary bypass graft
CPT/HCPCS: 36415; 71045; 72132; 74018; 74177; 74230; 76770; 76942; 80048; 80053; 81003; 82550; 82570; 83605; 83615; 83690; 83880; 84100; 84153; 84300; 84484; 84550; 85007; 85025; 85610; 85730; 86703; 86705; 86709; 86710; 86803; 86850; 86900; 86901; 87040; 87070; 87081; 87086; 87205; 87340; 88104; 89051; 93005; 94003; 94150; 94640; 94664; 94760; 99285; J2405; J7620; J8499

== ENCOUNTER 2017-11-25 13:36 | Inpatient (IN) | payer MEDICARE, OTHER ==
[2017-11-25] VITALS (9 sets, daily range): BP systolic 63–134; BP diastolic 40–52
[~2017-11-25] VITALS: Ht 180.3 cm; Wt 73.0 kg
[~2017-11-25 13:36] MED LIST changes: +DILTIAZEM HCL60 MG GT; +DOCUSATE S50 MG/5 ML PO; +FLOMAX0.4 MG GT; +FUROSEMIDE40 MG GT; +HEPARIN SO5000 UNIT2 SUBQ; +IPRATROPIU0.2 MG/1 M HHN; +LANSOPRAZOLE30 MG GT; +LIDOCAINE700 M1 TP; +METOPROLOL TART25 MG GT; +MIRALAX17 G2 GT; +NITROGLYCERIN0.4 MG SL; +NORCO 7.5/3251 EA ORAL; +POTASSIUM CHLO10 ME3; +PREDNISONE20 M1 GT; +SENNOSIDES8.6 MG GT; +ZANAFLEX2 M1 GT
[2017-11-25] MEDS ORDERED: Vancomycin 1 GM in NS 275 ML IV ONE (14:00)
[2017-11-25] MEDS ORDERED: Albuterol ud Inhalation HHN ONE (14:00)
[2017-11-25] MEDS ORDERED: Ipratropium 0.02% Inh Soln 2.5ml UD HHN ONE (14:00)
[2017-11-25] MEDS ORDERED: Piperacillin/Tazobactam 4.5 GM in NS 110 ML IV SCH (14:00)
[2017-11-25] MEDS ORDERED: Midazolam 2mg/2ml Inj IV ONE (14:15)
[2017-11-25] MEDS ORDERED: Midazolam for drip 50 MG in NS 90 ML IV ONE (14:15)
[2017-11-25] MEDS ORDERED: Vancomycin 1gm inj IVPB ONE (14:27)
[2017-11-25] MEDS ORDERED: Zosyn 4.5gm inj ONE (14:28)
[2017-11-25 15:02] LABS: ANION GAP 5 mmol/L (5-15); BLOOD UREA NITROGEN 39 mg/dL (7-18); CALCIUM 9.6 MG/DL (8.5-10.1); CARBON DIOXIDE 34 MMOL/L (21-32); CHLORIDE 106 MMOL/L (98-107); CREATININE 1.2 MG/DL (0.55-1.30); POTASSIUM 4.3 MMOL/L (3.5-5.1); SODIUM 145 MMOL/L (136-145)
[2017-11-25 15:05] LABS: INR 1.1 (0.9-1.1)
[2017-11-25 15:17] LABS: ALANINE AMINOTRANSFERASE 61 U/L (12-78); ALBUMIN 2.6 G/DL (3.4-5.0); ALBUMIN/GLOBULIN RATIO 0.5 (1.0-2.7); ALKALINE PHOSPHATASE 143 U/L (46-116); ASPARTATE AMINO TRANSFERASE 50 U/L (15-37); BILIRUBIN,TOTAL 1.2 MG/DL (0.2-1.0); CREATINE KINASE 100 U/L (26-308)
[2017-11-25 15:18] LABS: BILIRUBIN,DIRECT 0.4 MG/DL (0.0-0.3)
--- NOTE | 2017-11-25 16:12 | Diagnostic Imaging Report ---
Indication: Post intubation Technique: One view of the chest Comparison: 11/15/2017 Findings: Interim endotracheal intubation, endotracheal tube tip projecting approximately 3 cm above the alissa. Nasogastric tube has been removed. There is increased size of large right pleural effusion. There is increasing interstitial and airspace parenchymal edema. The heart remains enlarged. Right chest pacemaker remains. Impression: Satisfactory endotracheal intubation Worsening right-sided pleural effusion Worsening bilateral interstitial and airspace congestion Other stable findings as described
--- NOTE | 2017-11-25 16:41 | Emergency Room Report ---
History of Present Illness General Chief Complaint: Dyspnea/Respdistress Source: EMS Present Illness HPI Patient presents with hypoxia and respiratory distress. The patient is unable to give a history. The patient had pneumonia in the past. H/O atrial fibrillation Due to hematuria and GI bleeding, heparin and aspirin held. Post PEG. COPD. CHF Last admit for GI bleed. July dx: 1. Chronic obstructive pulmonary disease with acute exacerbation. 2. Acute bronchitis. 3. Congestive heart failure, acute on chronic with systolic and diastolic dysfunction. 4. Atrial fibrillation. 5. Anemia, iron deficiency. 6. Sebaceous cyst, neck. 7. Gastritis. 8. History of anemia. 9. History of cerebrovascular accident. Allergies: Coded Allergies: VINCENT INHIBITORS (Verified Allergy, Mild, 08/06/17) SHELLFISH (Verified Allergy, Unknown, 07/01/11) Patient History Limited by: medical condition Past Medical History: see triage record, old chart reviewed Past Surgical History: other - PEG Social History: Denies: smoking Social History Narrative SNF Reviewed Nursing Documentation: PMH: Agreed, PSxH: Agreed Nursing Documentation-PMH Hx Cardiac Problems: Yes Hx Hypertension: Yes Hx Pacemaker: Yes - Right chest, VPACED Hx Asthma: Yes Hx COPD: Yes Hx Diabetes: No Hx Cancer: No Hx Gastrointestinal Problems: Yes Hx Neurological Problems: Yes Hx Cerebrovascular Accident: Yes Hx Speech Problem: Yes - Aphesia Hx Dizziness: Yes Hx Syncope: Yes Hx Headaches: Yes Hx Aphasia: Yes Hx Dysphasia: Yes Hx Weakness: Yes Hx Fatigue: Yes Review of Systems All Other Systems: limited Physical Exam Vital Signs Date Time Temp Pulse Resp B/P (MAP) Pulse Ox O2 Delivery O2 Flow Rate FiO2 11/25/17 13:33 98.4 68 22 140/80 96 Room Air 98.4 11/25/17 13:40 2.0 11/25/17 14:42 70 Sp02 EP Interpretation: reviewed, abnormal - interpreted as hypoxia by me General Appearance: severe distress, Chronically Ill Eyes: bilateral eye PERRL, bilateral eye conjunctivae pale ENT: moist mucus membranes Neck: full range of motion Respiratory: respiratory distress, rales, wheezing Cardiovascular #1: tachycardia, irregularly irregular Cardiovascular #2: 2+ radial (R) Gastrointestinal: other - PEG, decreased bowel sounds, scaphoid Genitourinary: normal inspection, other - [place] Neurologic: responsive, motor weakness, other - opens eys, stupor Psychiatric: other - stupor Skin: normal inspection Procedures Critical Care Time Critical Care Time Total Critical Care Time: 45 min bedside evaluation and treatment excludes procedures (EKG). Reason for critical care: respiratory failure, treatment COPD/pneumonia, NSTEMI Possible complications: hypotension, shock, arrhythmias, metabolic acidosis, end organ damage, respiratory failure. Interventions: set up for immediate intubation, ventilator support, treatment of sepsis. NSTEMI Course: Patient presented with severe respiratory distress. Patient with severe hypoxia and tachypnea. Immediately intubated after review of code status. Antibiotics begun after BC. Sedation ordered. ABG reviewed. Discussed with employee relations specialist and PMD, both present in ED. Patient with + troponin. Aspirin given. Repeat evaluation with improvement. Consultations: nursing staff, EMS, RT, employee relations specialist, PMD Performed by: Dr. Valente Tolerated well condition = critical Intubation Intubation : Consent: Emergent Intubation Method: orotracheal Tube Size (cm): 7.5 Medications: Etomidate - 7 mg Breath Sounds after Intubation: equal Intubation Complications: no complications Post Intubation Xray: Yes Attempts: One Patient Tolerated: Well Complications: None Progress copious frothy sputum via ET Medical Decision Making Diagnostic Impression: Primary Impression: Acute respiratory failure Qualified Codes: J96.01 - Acute respiratory failure with hypoxia Additional Impressions: Pneumonia Qualified Codes: J18.9 - Pneumonia, unspecified organism NSTEMI (non-ST elevated myocardial infarction) Atrial fibrillation Qualified Codes: I48.2 - Chronic atrial fibrillation CHF (congestive heart failure), NYHA class IV Qualified Codes: I50.23 - Acute on chronic systolic (congestive) heart failure ER Course Patient with respiratory distress and failure. Ronchi and inc exp phase. Needs immediate intubation. DDx: COPD, sepsis, pneumonia and CHF. Consider possible AMI. Evaluation with BC, EKG, labs, UA, CXR (post intubation). Treatment with IV hydration for sepsis and antibiotics. Also breathing treatments. EKG with A fib RVR and strain, no acute injury. CXR post intubation with infiltrates R>L, cardiomegaly. Labs with elevated troponin. Aspirin given. Lactate normal. See critical care note. Sedation adequate. Repeat evaluation before transfer to ICU - greatly improved. Resting on vent ( sedated). HR improved with adequate blood pressure. CBC not reported (called lab). CBC with elevated WBC. Laboratory Tests Test 3/12/18 13:40 11/25/17 15:05 11/25/17 20:50 11/25/17 21:20 Prothrombin Time 11.2 SEC (9.30-11.50) Prothrombin Time INR 1.1 (0.9-1.1) PTT 31 SEC (23-33) Sodium Level 145 MMOL/L (136-145) Potassium Level 4.3 MMOL/L (3.5-5.1) Chloride Level 106 MMOL/L (98-107) Carbon Dioxide Level 34 MMOL/L (21-32) H Anion Gap 5 mmol/L (5-15) Blood Urea Nitrogen 39 mg/dL (7-18) H Creatinine 1.2 MG/DL (0.55-1.30) Estimate Glomerular Filtration Rate mL/min (>60) Glucose Level 134 MG/DL (74-106) H Lactic Acid Level 1.80 mmol/L (0.66-2.22) Calcium Level 9.6 MG/DL (8.5-10.1) Total Bilirubin 1.2 MG/DL (0.2-1.0) H Direct Bilirubin 0.4 MG/DL (0.0-0.3) H Aspartate Amino Transferase (AST) 50 U/L (15-37) H Alanine Aminotransferase (ALT) 61 U/L (12-78) Alkaline Phosphatase 143 U/L (46-116) H Total Creatine Kinase 100 U/L (26-308) Troponin I 0.076 ng/mL (0.000-0.056) Pro-B-Type Natriuretic Peptide 35214 pg/mL (0-125) H Total Protein 8.2 G/DL (6.4-8.2) Albumin 2.6 G/DL (3.4-5.0) L Globulin 5.6 g/dL Albumin/Globulin Ratio 0.5 (1.0-2.7) L Arterial Blood pH 7.470 (7.350-7.450) Arterial Blood Partial Pressure CO2 41.9 mmHg (35.0-45.0) Arterial Blood Partial Pressure O2 105.4 mmHg (75.0-100.0) H Arterial Blood HCO3 30.3 mmol/L (22.0-26.0) H Arterial Blood Oxygen Saturation 97.3 % (92.0-98.0) Arterial Blood Base Excess 6.2 Chepe Test Positive White Blood Count 21.7 K/UL (4.8-10.8) H Red Blood Count 3.13 M/UL (4.70-6.10) L Hemoglobin 9.4 G/DL (14.2-18.0) L Hematocrit 29.7 % (42.0-52.0) L Mean Corpuscular Volume 95 FL (80-99) Mean Corpuscular Hemoglobin 30.1 PG (27.0-31.0) Mean Corpuscular Hemoglobin Concent 31.8 G/DL (32.0-36.0) L Red Cell Distribution Width 16.8 % (11.6-14.8) H Platelet Count 78 K/UL (150-450) L Mean Platelet Volume 9.8 FL (6.5-10.1) Neutrophils (%) (Auto) % (45.0-75.0) Lymphocytes (%) (Auto) % (20.0-45.0) Monocytes (%) (Auto) % (1.0-10.0) Eosinophils (%) (Auto) % (0.0-3.0) Basophils (%) (Auto) % (0.0-2.0) Differential Total Cells Counted 100 Neutrophils % (Manual) 87 % (45-75) H Lymphocytes % (Manual) 4 % (20-45) L Monocytes % (Manual) 1 % (1-10) Eosinophils % (Manual) 0 % (0-3) Basophils % (Manual) 0 % (0-2) Band Neutrophils 8 % (0-8) Platelet Estimate Decreased L Platelet Morphology Normal Hypochromasia 1+ Anisocytosis 1+ Urine Color Yellow Urine Appearance Slightly cloudy Urine pH 6 (4.5-8.0) Urine Specific Gilbert 1.005 (1.005-1.035) Urine Protein 2+ (NEGATIVE) H Urine Glucose (UA) Negative (NEGATIVE) Urine Ketones Negative (NEGATIVE) Urine Occult Blood 5+ (NEGATIVE) H Urine Nitrite Negative (NEGATIVE) Urine Bilirubin Negative (NEGATIVE) Urine Urobilinogen 1 MG/DL (0.0-1.0) H Urine Leukocyte Esterase 2+ (NEGATIVE) H Urine RBC 5-10 /HPF (0 - 0) H Urine WBC 2-4 /HPF (0 - 0) Urine Squamous Epithelial Cells None /LPF (NONE/OCC) Urine Bacteria Moderate /HPF (NONE) H EKG Diagnostic Results Rate: tachycardiac Rhythm: other - a fib ST Segments: no acute changes Rhythm Strip Diag. Results EP Interpretation: yes Rhythm: no PVC's, no ectopy, other - a fib Chest X-Ray Diagnostic Results Chest X-Ray Diagnostic Results : Chest X-Ray Ordered: Yes # of Views/Limited/Complete: 1 View Indication: Shortness of Breath Interpretation: other - cardimegaly and dense infiltrates, more on R - ET good placement Impression: Other Electronically Signed by: Chay Valente MD Last Vital Signs Date Time Temp Pulse Resp B/P (MAP) Pulse Ox O2 Delivery O2 Flow Rate FiO2 11/25/17 19:26 68 18 50 11/25/17 19:00 98.2 112/52 100 Mechanical Ventilator 98.2 11/25/17 13:40 2.0 Status: improved Disposition: ADMITTED INPATIENT Condition: Critical Referrals: HODAN GAYTAN (PCP) Chay Valente M.D. Nov 25, 2017 16:41
[2017-11-25] MEDS ORDERED: PANTOPRAZOLE SO40 MG GT (16:57)
[2017-11-25] MEDS ORDERED: MINIPRESS5 MG GT (16:57)
[2017-11-25] MEDS ORDERED: SIMVASTATIN40 MG GT (16:57)
[2017-11-25] MEDS ORDERED: LOSARTAN POTASS50 MG GT (16:57)
[2017-11-25] MEDS ORDERED: ASPIR 8181 MG HE (16:57)
--- NOTE | 2017-11-25 17:10 | Consultation ---
Consult Note Assessment/Plan PULMONARY CONSULTATION November 25, 2017 CONSULTING PHYSICIAN: Erin Hammer M.D. REFERRING PHYSICIAN: Martinez Rubalcava M.D. CHIEF COMPLAINT: The patient is seen because of acute respiratory failure HISTORY OF PRESENT ILLNESS: The patient has a history of COPD and CHF. He was admitted with increasing symptoms of shortness of breath and cough with wheezing. He was seen in the ER and promptly intubated due to respiratory failure and placed on ventilator support. Secretions were thick and copious. He was transiently hypotensive and responded to fluids. PAST MEDICAL HISTORY: Includes COPD, systolic and diastolic CHF, pulm HTN, pacemaker, atrial fibrillation, past stroke with dysarthria, aphasia and prostate cancer. ALLERGIES: VINCENT inhibitors and shellfish. REVIEW OF SYSTEMS: Cannot be obtained. MEDICATIONS: Reviewed. PHYSICAL EXAMINATION: GENERAL: The patient is poorly responsive VITAL SIGNS: Stable. He is chronically ill and malnourished. HEENT: The head is normocephalic. An oral tracheal tube is in place on vent support NECK: Has jugular vein distention. A pacemaker is in the right upper chest. LUNGS: Have moderate wheezing with dullness and decreased BS R base. CARDIAC: Rhythm is regular. ABDOMEN: Soft, mildly distended. Liver and spleen are not felt. EXTREMITIES: Have no clubbing or cyanosis. There is 1+ edema and chronic stasis changes. PLAN: The CXR shows significant infiltrates. The patient will be treated with abx and may need diuresis. Thoracentesis was ordered if US shows significant fluid. Thank you for asking me to see in consultation. ERIN HAMMER Nov 25, 2017 17:10
[2017-11-25] MEDS ORDERED: Midazolam/D5W 100ml 100 ML IVPB SCH (17:30)
[2017-11-25] MEDS: dilTIAZem HCl 60mg tab ORAL SCH (18:44)
[2017-11-25] MEDS: Midazolam for drip 50 MG in NS 90 ML IVPB SCH ×2 (19:00→21:35)
[2017-11-25] MEDS ORDERED: Vancomycin 500 MG in NS 110 ML IVPB ONE (20:00)
[2017-11-25] MEDS: Metoprolol 25mg tab ORAL SCH (20:21)
[2017-11-25] MEDS: Heparin 5000 units/ml inj SUBQ SCH (20:21)
[2017-11-25 21:20] LABS: HEMATOCRIT 29.7 % (42.0-52.0); HEMOGLOBIN 9.4 G/DL (14.2-18.0); MEAN CORPUSCULAR VOLUME 95 FL (80-99); PLATELET COUNT 78 K/UL (150-450); RED BLOOD COUNT 3.13 M/UL (4.70-6.10); RED CELL DISTRIBUTION WIDTH 16.8 % (11.6-14.8); WHITE BLOOD COUNT 21.7 K/UL (4.8-10.8)
[2017-11-25 21:43] LABS: APPEARANCE,URINE SLIGHTLY CLOUDY; BILIRUBIN, URINE NEGATIVE (NEGATIVE); COLOR,URINE YELLOW; GLUCOSE, URINE (UA) NEGATIVE (NEGATIVE); KETONES,URINE NEGATIVE (NEGATIVE); LEUKOCYTE ESTERASE ,URINE 2+ (NEGATIVE); NITRITE,URINE NEGATIVE (NEGATIVE); PH,URINE 6 (4.5-8.0); PROTEIN,URINE 2+ (NEGATIVE); UROBILINOGEN,URINE 1 MG/DL (0.0-1.0)
--- NOTE | 2017-11-25 21:45 | History and Physical Report ---
DATE OF ADMISSION: 11/25/2017 CHIEF COMPLAINT/REASON FOR HOSPITALIZATION: The patient is a 72-year-old man with COPD, CHF with low ejection fraction, gastrostomy feedings for dysphagia. He presents with hypoxemia and worsening shortness of breath. Chest x-ray shows bilateral infiltrates, possible CHF and he was admitted to the hospital after being intubated in the emergency room. The patient in the emergency room has blood pressure in the 80s and has been given a fluid bolus. He was admitted at [place] 11/09/2017 with back pain and shortness of breath. During that admission, he had a pleural effusion that was tapped and cultures were negative. He received empiric antibiotics and diuresis. He developed acute kidney injury from likely overdiuresis which improved. He also had acute urinary retention. The patient has a history of prior GI bleeding and multiple endoscopies. He has also had a history of paroxysmal atrial fibrillation, permanent pacemaker, CVA with dysarthria. PAST SURGICAL HISTORY: Permanent pacemaker. MEDICATIONS: Current medications reviewed on the computer and [facility] include aspirin 81 mg daily, losartan 50 mg daily, Protonix 40 mg daily, prazosin 5 mg at bedtime, Zocor 40 mg daily, diltiazem 60 mg every 6 hours, Colace 100 mg twice a day, Proscar 5 mg daily, Lasix 40 mg daily, heparin 5000 units subcutaneous every 12 hours, Wheeler 7.5 one every four hours as needed, Atrovent inhalation every six hours, lidocaine patch to the back daily, nitroglycerin as needed, MiraLAX as needed, metoprolol tartrate 25 mg every 12 hours, potassium 10 mEq daily, prednisone 10 mg daily for 4 days starting 11/24/2017 and 5 mg daily for four days starting 11/28/2017, senna 8.6 mg daily, Flomax 0.4 mg at bedtime, Zanaflex 2 mg t.i.d., Nephro feeding 40 mL an hour for 20 hours a day. ALLERGIES: VINCENT inhibitors causing angioedema. CODE STATUS: Full code. Family contact his Maddy Freeman, , alternate number [phone]. HABITS: He is a former smoker, quit many years ago. Alcohol occasional. Drugs, none. SOCIAL HISTORY: Lives with family until recently when he went to [facility]. SYSTEM REVIEW: The patient is unable at this time. Please see the detailed notes from prior dictation. PHYSICAL EXAMINATION: GENERAL: The patient is sedated on a ventilator. He was seen in the emergency room prior to sending the ICU. VITAL SIGNS: He had a pulse 77, respirations 20, and blood pressure 63/44, prior 134/40, pulse oximeter 100% on the ventilator 70%. HEENT: Head eyes, ears, nose, and throat, eyes closed. Oral mucosa moist. NECK: No adenopathy. LUNGS: Bilateral rhonchi. HEART: Rhythm is regular. I hear no murmur. ABDOMEN: Gastrostomy in place. Liver and spleen not palpable. No focal tenderness. EXTREMITIES: No edema, cyanosis, or clubbing. SKIN: Brawny skin in both legs that are chronic appearing. EXTREMITIES: No edema. NEUROLOGIC: The patient is sedated. PERTINENT LABORATORIES: Chest x-ray shows endotracheal tube in place, right-sided pleural effusion, bilateral interstitial and airspace infiltrates. INR is 1.1. Blood gas 7.47, pCO2 41.9, pO2 105, base excess 6.2. Chemistry, sodium 145, potassium 4.3, chloride 106, CO2 34, BUN 39, creatinine 1.2, glucose 134. Troponin 0.076. BMP . Albumin is 2.6. IMPRESSION: 1. Pneumonia likely aspiration pneumonia, healthcare acquired. 2. Pleural effusions. 3. Chronic systolic congestive heart failure. 4. Hypotension, possible septic shock. 5. Elevation of troponin, possible acute coronary syndrome. 6. History of CVA with dysarthria and dysphagia. 7. Respiratory failure acute on chronic. 8. Possible sepsis and septic shock. 9. Indwelling Reyes after recent urinary tract infection. UA pending at time this dictation. PLAN: Intensive care unit orders have been given. The patient had been placed on ventilator broad-spectrum antibiotics. Cardiac monitoring. His condition is gravely ill. Martinez Rubalcava M.D. DR: Razia JOB#: [id number] CC:
[2017-11-25] MEDS: Piperacillin/Tazobactam 3.375 GM in NS 110 ML IVPB SCH (22:01)
[2017-11-26] VITALS (33 sets, daily range): BP systolic 81–135; BP diastolic 27–109
[2017-11-26 04:40] LABS: HEMATOCRIT 29.8 % (42.0-52.0); HEMOGLOBIN 9.6 G/DL (14.2-18.0); MEAN CORPUSCULAR VOLUME 94 FL (80-99); PLATELET COUNT 85 K/UL (150-450); RED BLOOD COUNT 3.16 M/UL (4.70-6.10); RED CELL DISTRIBUTION WIDTH 16.8 % (11.6-14.8); WHITE BLOOD COUNT 17.1 K/UL (4.8-10.8)
[2017-11-26 05:01] LABS: ALANINE AMINOTRANSFERASE 37 U/L (12-78); ALBUMIN 1.7 G/DL (3.4-5.0); ALBUMIN/GLOBULIN RATIO 0.4 (1.0-2.7); ALKALINE PHOSPHATASE 98 U/L (46-116); ANION GAP 6 mmol/L (5-15); ASPARTATE AMINO TRANSFERASE 35 U/L (15-37); BILIRUBIN,TOTAL 1.3 MG/DL (0.2-1.0); BLOOD UREA NITROGEN 29 mg/dL (7-18); CALCIUM 8.2 MG/DL (8.5-10.1); CARBON DIOXIDE 32 MMOL/L (21-32); CHLORIDE 110 MMOL/L (98-107); CREATININE 1.3 MG/DL (0.55-1.30); PHOSPHORUS 2.3 MG/DL (2.5-4.9); POTASSIUM 3.7 MMOL/L (3.5-5.1); SODIUM 148 MMOL/L (136-145)
[2017-11-26 05:05] LABS: BILIRUBIN,DIRECT 0.4 MG/DL (0.0-0.3)
[2017-11-26] MEDS: Piperacillin/Tazobactam 3.375 GM in NS 110 ML IVPB SCH ×3 (05:38→22:39)
[2017-11-26] MEDS: Midazolam for drip 50 MG in NS 90 ML IVPB SCH ×3 (05:39→21:29)
[2017-11-26] MEDS: dilTIAZem HCl 60mg tab ORAL SCH ×4 (05:41→17:35)
[2017-11-26] MEDS: Heparin 5000 units/ml inj SUBQ SCH ×2 (09:00→21:00)
[2017-11-26] MEDS: Metoprolol 25mg tab ORAL SCH ×2 (09:00→21:00)
[2017-11-26] MEDS: Aspirin Baby 81mg NG SCH (09:00)
[2017-11-26] MEDS ORDERED: Acetaminophen 650mg/20.3ml GT PRN (09:15)
--- NOTE | 2017-11-26 09:18 | Pulmonology Progress Note ---
Assessment/Plan Assessment/Plan 1. Pneumonia, healthcare acquired. 2. Pleural effusions. 3. Chronic systolic congestive heart failure. 4. Hypotension, due to septic shock, improved. 5. Elevation of troponin, possible acute coronary syndrome. 6. History of CVA with dysarthria and dysphagia. 7. Respiratory failure acute on chronic. 8. Septic shock. 9. Indwelling Reyes 10. GT T to 102 not ready to wean BP stable cont abx may need diuresis CXR disc w Dr Rubalcava, RN Subjective ROS Limited/Unobtainable: Yes Allergies: Coded Allergies: VINCENT INHIBITORS (Verified Allergy, Mild, 08/06/17) SHELLFISH (Verified Allergy, Unknown, 07/01/11) Objective Last 24 Hour Vital Signs Date Time Temp Pulse Resp B/P (MAP) Pulse Ox O2 Delivery O2 Flow Rate FiO2 11/26/17 09:00 74 90/45 11/26/17 08:00 68 18 121/39 100 Mechanical Ventilator 50 11/26/17 08:00 50 11/26/17 08:00 18 11/26/17 07:00 66 18 111/38 100 Mechanical Ventilator 50 11/26/17 07:00 18 11/26/17 06:45 77 18 50 11/26/17 06:00 18 11/26/17 06:00 74 18 94/46 99 Mechanical Ventilator 50 11/26/17 05:41 70 118/74 11/26/17 05:39 18 11/26/17 05:19 73 18 50 11/26/17 05:00 18 11/26/17 05:00 74 18 118/74 99 Mechanical Ventilator 50 11/26/17 04:00 79 11/26/17 04:00 99.2 73 18 130/109 100 Mechanical Ventilator 50 99.2 11/26/17 04:00 18 11/26/17 04:00 50 11/26/17 03:15 73 18 50 11/26/17 03:00 75 18 103/49 99 Mechanical Ventilator 50 11/26/17 03:00 18 11/26/17 02:00 18 11/26/17 02:00 70 18 103/49 100 Mechanical Ventilator 50 11/26/17 01:16 71 19 50 11/26/17 01:00 71 18 108/54 100 Mechanical Ventilator 50 11/26/17 01:00 18 3/13/18 00:00 99.0 68 18 103/51 100 Mechanical Ventilator 50 99.0 11/26/17 00:00 65 11/26/17 00:00 50 11/26/17 00:00 18 11/26/17 00:00 62 107/44 11/25/17 23:25 69 19 50 11/25/17 23:00 67 18 103/51 99 Mechanical Ventilator 50 11/25/17 23:00 18 11/25/17 22:00 65 18 105/46 99 Mechanical Ventilator 50 11/25/17 22:00 18 11/25/17 21:35 18 11/25/17 21:32 70 18 50 11/25/17 21:00 63 18 104/45 100 Mechanical Ventilator 50 11/25/17 21:00 18 11/25/17 20:21 70 97/50 11/25/17 20:00 98.2 64 18 97/50 100 Mechanical Ventilator 50 98.2 11/25/17 20:00 59 11/25/17 20:00 18 11/25/17 20:00 50 11/25/17 19:26 68 18 50 11/25/17 19:00 98.2 68 18 112/52 100 Mechanical Ventilator 50 98.2 11/25/17 19:00 18 11/25/17 18:44 73 112/52 11/25/17 18:00 67 18 107/51 100 Mechanical Ventilator 50 11/25/17 17:47 50 11/25/17 17:24 18 97/53 100 Mechanical Ventilator 50 11/25/17 17:23 75 18 50 11/25/17 16:25 13 11/25/17 16:21 77 18 103/52 100 Mechanical Ventilator 50 11/25/17 15:30 77 20 63/44 100 Mechanical Ventilator 70 11/25/17 15:30 20 11/25/17 15:13 18 11/25/17 14:43 76 26 100 Mechanical Ventilator 11/25/17 14:42 84 18 70 11/25/17 14:28 84 18 100 Mechanical Ventilator 11/25/17 13:40 98.8 83 21 134/40 88 Room Air 98.8 11/25/17 13:40 70 16 Nasal Cannula 2.0 11/25/17 13:33 98.4 68 22 140/80 96 Room Air 98.4 Intake and Output 11/25/17 11/26/17 19:00 07:00 Intake Total 30 ml 881.5 ml Output Total 150 ml 530 ml Balance -120 ml 351.5 ml Intake Free Water 30 ml IV Total 881.5 ml Output Urine Total 150 ml 530 ml General Appearance: no acute distress HEENT: atraumatic Respiratory/Chest: rhonchi Cardiovascular: normal rate Abdomen: soft, non tender, other - GT Microbiology Date/Time Source Procedure Growth Status 11/25/17 15:40 Sputum Gram Stain Pending Resulted 11/25/17 15:40 Sputum Culture - Preliminary Gram Positive Cocci Resulted 11/25/17 21:20 Indwelling Cath Urine Culture - Preliminary NO GROWTH Resulted Laboratory Tests 11/25/17 13:40: Prothrombin Time 11.2, Prothromb Time International Ratio 1.1, Activated Partial Thromboplast Time 31, Sodium Level 145, Potassium Level 4.3, Chloride Level 106, Carbon Dioxide Level 34H, Anion Gap 5, Blood Urea Nitrogen 39H, Creatinine 1.2, Estimat Glomerular Filtration Rate , Glucose Level 134H, Lactic Acid Level 1.80, Calcium Level 9.6, Total Bilirubin 1.2H, Direct Bilirubin 0.4H , Aspartate Amino Transf (AST/SGOT) 50H, Alanine Aminotransferase (ALT/SGPT) 61 , Alkaline Phosphatase 143H, Total Creatine Kinase 100, Troponin I 0.076H, Pro-B -Type Natriuretic Peptide 61783N, Total Protein 8.2, Albumin 2.6L, Globulin 5.6 , Albumin/Globulin Ratio 0.5L 11/25/17 15:05: Arterial Blood pH 7.470H, Arterial Blood Partial Pressure CO2 41.9, Arterial Blood Partial Pressure O2 105.4H, Arterial Blood HCO3 30.3H, Arterial Blood Oxygen Saturation 97.3, Arterial Blood Base Excess 6.2, Chepe Test Positive 11/25/17 20:50: White Blood Count 21.7H, Red Blood Count 3.13L, Hemoglobin 9.4L, Hematocrit 29.7L, Mean Corpuscular Volume 95, Mean Corpuscular Hemoglobin 30.1, Mean Corpuscular Hemoglobin Concent 31.8L, Red Cell Distribution Width 16.8H, Platelet Count 78L, Mean Platelet Volume 9.8, Neutrophils (%) (Auto) , Lymphocytes (%) (Auto) , Monocytes (%) (Auto) , Eosinophils (%) (Auto) , Basophils (%) (Auto) , Differential Total Cells Counted 100, Neutrophils % ( Manual) 87H, Lymphocytes % (Manual) 4L, Monocytes % (Manual) 1, Eosinophils % ( Manual) 0, Basophils % (Manual) 0, Band Neutrophils 8, Platelet Estimate DecreasedL, Platelet Morphology Normal, Hypochromasia 1+, Anisocytosis 1+ 11/25/17 21:20: Urine Color Yellow, Urine Appearance Slightly cloudy, Urine pH 6, Urine Specific [place] 1.005, Urine Protein 2+H, Urine Glucose (UA) Negative, Urine Ketones Negative, Urine Occult Blood 5+H, Urine Nitrite Negative, Urine Bilirubin Negative, Urine Urobilinogen 1H, Urine Leukocyte Esterase 2+H, Urine RBC 5-10H, Urine WBC 2-4, Urine Squamous Epithelial Cells None, Urine Bacteria ModerateH 11/26/17 04:10: White Blood Count 17.1H, Red Blood Count 3.16L, Hemoglobin 9.6L, Hematocrit 29.8L, Mean Corpuscular Volume 94, Mean Corpuscular Hemoglobin 30.3, Mean Corpuscular Hemoglobin Concent 32.1, Red Cell Distribution Width 16.8H, Platelet Count 85L, Mean Platelet Volume 9.5, Neutrophils (%) (Auto) , Lymphocytes (%) (Auto) , Monocytes (%) (Auto) , Eosinophils (%) (Auto) , Basophils (%) (Auto) , Neutrophils % (Manual) [Pending], Lymphocytes % (Manual) [Pending], Platelet Estimate [Pending], Platelet Morphology [Pending], Sodium Level 148H, Potassium Level 3.7, Chloride Level 110H, Carbon Dioxide Level 32, Anion Gap 6, Blood Urea Nitrogen 29H, Creatinine 1.3, Estimat Glomerular Filtration Rate , Glucose Level 72L, Calcium Level 8.2L, Phosphorus Level 2.3L, Magnesium Level 1.7L, Total Bilirubin 1.3H, Direct Bilirubin 0.4H, Aspartate Amino Transf (AST/SGOT) 35, Alanine Aminotransferase (ALT/SGPT) 37, Alkaline Phosphatase 98, Troponin I 0.088H, Total Protein 5.9L, Albumin 1.7L, Globulin 4.2, Albumin/Globulin Ratio 0.4L Current Medications Medications (Trade) Dose Ordered Sig/Scot Route PRN Reason Start Time Stop Time Status Last Admin Dose Admin Aspirin (ASA) 81 mg DAILY NG 11/26/17 09:00 12/26/17 08:59 Dextrose 1,000 ml @ 50 mls/hr Q20H IV 11/25/17 18:00 12/25/17 17:59 11/25/17 18:48 Diltiazem HCl (Cardizem) 60 mg EVERY 6 HOURS ORAL 11/25/17 18:00 12/25/17 17:59 Heparin Sodium (Porcine) (Heparin 5000 units/ml) 5,000 units EVERY 12 HOURS SUBQ 11/25/17 21:00 12/25/17 20:59 11/25/17 20:21 Metoprolol Tartrate (Lopressor) 25 mg Q12HR ORAL 11/25/17 21:00 12/25/17 20:59 Midazolam HCl 50 mg/Sodium Chloride 100 ml @ 0 mls/hr Q24H IVPB 11/25/17 18:00 12/02/17 17:29 11/26/17 05:39 Piperacillin Sod/ Tazobactam Sod 3.375 gm/Sodium Chloride 110 ml @ 27.5 mls/hr EVERY 8 HOURS IVPB 11/25/17 22:00 11/30/17 21:59 11/26/17 05:38 Vancomycin HCl (Vanco rx to dose) 1 ea DAILY PRN MISC Per rx protocol 11/25/17 17:30 12/25/17 17:29 Vancomycin HCl/ Dextrose 250 ml @ 166.667 mls/hr Q24H IVPB 11/26/17 20:00 12/01/17 19:59 ERIN ARIAS 13, 2018 09:18
--- NOTE | 2017-11-26 10:32 | Pre-Procedure Note/Attestation ---
Pre-Procedure Note/Attestation Complete Prior to Procedure Planned Procedure: not applicable Procedure Narrative: US guided thoracentesis Indications for Procedure Pre-Operative Diagnosis: pleural effusion Attestation I attest that I discussed the nature of the procedure; its benefits; risks and complications; and alternatives (and the risks and benefits of such alternatives ), prior to the procedure, with the patient (or the patient's legal financial foundations representative). I attest that, if there was a reasonable possibility of needing a blood transfusion, the patient (or the patient's legal financial foundations representative) was given the [facility] standardized written summary, pursuant to the Sanjiv Rafa Blood Safety Act ([place] Health and Safety Code # 1645, as amended). I attest that I re-evaluated the patient just prior to the surgery and that there has been no change in the patient's H&P, except as documented below: Discussed by phone with patient's daughter at 1030 RICKEY FAITH M.D. Nov 26, 2017 10:32
[2017-11-26] MEDS: Pantoprazole Inj IVP SCH (11:13)
--- NOTE | 2017-11-26 11:55 | Diagnostic Imaging Report ---
Indication: Post thoracentesis Technique: One view of the chest Comparison: 11/25/2017 Findings: A small lucency is seen within the area of pleural thickening laterally at the right lung base. Otherwise unchanged right-sided pleural fluid versus thickening. Extensive interstitial and airspace disease throughout the right lung persist. This appears unchanged on the left. This may be slightly improved on the right, although overall aeration of the right lung appears minimally improved as well. The endotracheal tube remains in stable satisfactory position. A right chest pacemaker remains. A gastrostomy balloon is noted. Impression: Small gas bubble in the right pleural space, probably a tiny extra vacuo pneumothorax related to recent aspiration of a small locule of loculated right pleural effusion Minimally improved aeration and possibly decreased interstitial and airspace disease within the right lung. However, extensive generalized bilateral interstitial and airspace disease persists. Other stable findings as described
--- NOTE | 2017-11-26 11:58 | Diagnostic Imaging Report ---
Indications: Pleural effusion Technique: Ultrasound used to localize optimal puncture site. Sterile prepping and draping chest. Local anesthesia with 1% lidocaine. Ultrasound revealed extensive organized pleural thickening with small anechoic locules of presumed fluid. The largest of these was selected as a target. Under real-time ultrasound guidance, puncture pleural space using thoracentesis needle. Stylet removed. Catheter placed to vacuum bottle suction. 200 mL of of dark brown fluid aspirated. Patient tolerated procedure well, without immediate complication. Findings: Followup sonography demonstrates resolution of the target locule but still extensive pleural thickening Impression: Successful ultrasound-guided thoracentesis, yielding 200 milliliters of dark brown fluid. Note sonographic evidence of extensive loculation and organization of the left pleural fluid collection
--- NOTE | 2017-11-26 13:25 | General Progress Note ---
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 SNOMED: 814819469 (6) Pleural effusion ICD Codes: J90 - Pleural effusion, not elsewhere classified SNOMED: 49308423 (7) 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 ICD Codes: M51.26 - Other intervertebral disc displacement, lumbar region SNOMED: 91241342 (8) Urinary retention ICD Codes: R33.9 - Retention of urine, unspecified SNOMED: 528327784 (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) ICD Codes: D50.0 - Iron deficiency anemia secondary to blood loss (chronic) SNOMED: 64201600, 107342790 (10) Atrial fibrillation ICD Codes: I48.91 - Atrial fibrillation SNOMED: 30382303 Qualifiers: Qualified Codes: I48.2 - Chronic atrial fibrillation (11) Pneumonia ICD Codes: J18.9 - Pneumonia, unspecified organism SNOMED: 073872079 Qualifiers: Qualified Codes: J18.9 - Pneumonia, unspecified organism (12) Acute respiratory failure ICD Codes: J96.00 - Acute respiratory failure, unspecified whether with hypoxia or hypercapnia SNOMED: 15497986 Qualifiers: Qualified Codes: J96.01 - Acute respiratory failure with hypoxia Assessment/Plan HC acquired pneumoniaj, possible aspiration, continue vanco and zosyn chf, resume diuretics as hypotension resolved parox afib , continue meds high risk, daughter aware, full code icu time 40 min Subjective ROS Limited/Unobtainable: Yes Allergies: Coded Allergies: VINCENT INHIBITORS (Verified Allergy, Mild, 08/06/17) SHELLFISH (Verified Allergy, Unknown, 07/01/11) Objective Last 24 Hour Vital Signs Date Time Temp Pulse Resp B/P (MAP) Pulse Ox O2 Delivery O2 Flow Rate FiO2 11/26/17 12:58 64 18 50 11/26/17 12:00 99.6 71 18 108/37 100 Mechanical Ventilator 50 99.6 11/26/17 12:00 50 11/26/17 12:00 18 11/26/17 11:44 78 103/39 11/26/17 11:33 68 11/26/17 11:07 78 18 50 11/26/17 11:00 76 18 103/39 100 Mechanical Ventilator 50 11/26/17 11:00 18 11/26/17 10:04 99.9 11/26/17 10:00 99.9 65 18 121/27 100 Mechanical Ventilator 50 99.9 11/26/17 10:00 18 11/26/17 09:34 102.0 11/26/17 09:26 72 18 50 11/26/17 09:00 102.0 76 18 112/37 100 Mechanical Ventilator 50 102.0 11/26/17 09:00 18 11/26/17 09:00 74 90/45 11/26/17 08:00 68 18 121/39 100 Mechanical Ventilator 50 11/26/17 08:00 50 11/26/17 08:00 18 11/26/17 07:39 68 11/26/17 07:00 66 18 111/38 100 Mechanical Ventilator 50 11/26/17 07:00 18 11/26/17 06:45 77 18 50 11/26/17 06:00 18 11/26/17 06:00 74 18 94/46 99 Mechanical Ventilator 50 11/26/17 05:41 70 118/74 11/26/17 05:39 18 11/26/17 05:19 73 18 50 11/26/17 05:00 18 11/26/17 05:00 74 18 118/74 99 Mechanical Ventilator 50 11/26/17 04:00 79 11/26/17 04:00 99.2 73 18 130/109 100 Mechanical Ventilator 50 99.2 11/26/17 04:00 18 11/26/17 04:00 50 11/26/17 03:15 73 18 50 11/26/17 03:00 75 18 103/49 99 Mechanical Ventilator 50 11/26/17 03:00 18 11/26/17 02:00 18 11/26/17 02:00 70 18 103/49 100 Mechanical Ventilator 50 11/26/17 01:16 71 19 50 11/26/17 01:00 71 18 108/54 100 Mechanical Ventilator 50 11/26/17 01:00 18 11/26/17 00:00 99.0 68 18 103/51 100 Mechanical Ventilator 50 99.0 11/26/17 00:00 65 11/26/17 00:00 50 11/26/17 00:00 18 11/26/17 00:00 62 107/44 11/25/17 23:25 69 19 50 11/25/17 23:00 67 18 103/51 99 Mechanical Ventilator 50 11/25/17 23:00 18 11/25/17 22:00 65 18 105/46 99 Mechanical Ventilator 50 11/25/17 22:00 18 11/25/17 21:35 18 11/25/17 21:32 70 18 50 11/25/17 21:00 63 18 104/45 100 Mechanical Ventilator 50 11/25/17 21:00 18 11/25/17 20:21 70 97/50 11/25/17 20:00 98.2 64 18 97/50 100 Mechanical Ventilator 50 98.2 11/25/17 20:00 59 11/25/17 20:00 18 11/25/17 20:00 50 11/25/17 19:26 68 18 50 11/25/17 19:00 98.2 68 18 112/52 100 Mechanical Ventilator 50 98.2 11/25/17 19:00 18 11/25/17 18:44 73 112/52 11/25/17 18:00 67 18 107/51 100 Mechanical Ventilator 50 11/25/17 17:47 50 11/25/17 17:24 18 97/53 100 Mechanical Ventilator 50 11/25/17 17:23 75 18 50 11/25/17 16:25 13 11/25/17 16:21 77 18 103/52 100 Mechanical Ventilator 50 11/25/17 15:30 77 20 63/44 100 Mechanical Ventilator 70 11/25/17 15:30 20 18 15:13 18 11/25/17 14:43 76 26 100 Mechanical Ventilator 11/25/17 14:42 84 18 70 11/25/17 14:28 84 18 100 Mechanical Ventilator 11/25/17 13:40 98.8 83 21 134/40 88 Room Air 98.8 11/25/17 13:40 70 16 Nasal Cannula 2.0 11/25/17 13:33 98.4 68 22 140/80 96 Room Air 98.4 Intake and Output 11/25/17 11/26/17 19:00 07:00 Intake Total 30 ml 881.5 ml Output Total 150 ml 530 ml Balance -120 ml 351.5 ml Intake Free Water 30 ml IV Total 881.5 ml Output Urine Total 150 ml 530 ml Laboratory Tests 11/25/17 13:40: Prothrombin Time 11.2, Prothromb Time International Ratio 1.1, Activated Partial Thromboplast Time 31, Sodium Level 145, Potassium Level 4.3, Chloride Level 106, Carbon Dioxide Level 34H, Anion Gap 5, Blood Urea Nitrogen 39H, Creatinine 1.2, Estimat Glomerular Filtration Rate , Glucose Level 134H, Lactic Acid Level 1.80, Calcium Level 9.6, Total Bilirubin 1.2H, Direct Bilirubin 0.4H , Aspartate Amino Transf (AST/SGOT) 50H, Alanine Aminotransferase (ALT/SGPT) 61 , Alkaline Phosphatase 143H, Total Creatine Kinase 100, Troponin I 0.076H, Pro-B -Type Natriuretic Peptide 53797X, Total Protein 8.2, Albumin 2.6L, Globulin 5.6 , Albumin/Globulin Ratio 0.5L 11/25/17 15:05: Arterial Blood pH 7.470H, Arterial Blood Partial Pressure CO2 41.9, Arterial Blood Partial Pressure O2 105.4H, Arterial Blood HCO3 30.3H, Arterial Blood Oxygen Saturation 97.3, Arterial Blood Base Excess 6.2, Chepe Test Positive 11/25/17 20:50: White Blood Count 21.7H, Red Blood Count 3.13L, Hemoglobin 9.4L, Hematocrit 29.7L, Mean Corpuscular Volume 95, Mean Corpuscular Hemoglobin 30.1, Mean Corpuscular Hemoglobin Concent 31.8L, Red Cell Distribution Width 16.8H, Platelet Count 78L, Mean Platelet Volume 9.8, Neutrophils (%) (Auto) , Lymphocytes (%) (Auto) , Monocytes (%) (Auto) , Eosinophils (%) (Auto) , Basophils (%) (Auto) , Differential Total Cells Counted 100, Neutrophils % ( Manual) 87H, Lymphocytes % (Manual) 4L, Monocytes % (Manual) 1, Eosinophils % ( Manual) 0, Basophils % (Manual) 0, Band Neutrophils 8, Platelet Estimate DecreasedL, Platelet Morphology Normal, Hypochromasia 1+, Anisocytosis 1+ 11/25/17 21:20: Urine Color Yellow, Urine Appearance Slightly cloudy, Urine pH 6, Urine Specific [place] 1.005, Urine Protein 2+H, Urine Glucose (UA) Negative, Urine Ketones Negative, Urine Occult Blood 5+H, Urine Nitrite Negative, Urine Bilirubin Negative, Urine Urobilinogen 1H, Urine Leukocyte Esterase 2+H, Urine RBC 5-10H, Urine WBC 2-4, Urine Squamous Epithelial Cells None, Urine Bacteria ModerateH 11/26/17 04:10: White Blood Count 17.1H, Red Blood Count 3.16L, Hemoglobin 9.6L, Hematocrit 29.8L, Mean Corpuscular Volume 94, Mean Corpuscular Hemoglobin 30.3, Mean Corpuscular Hemoglobin Concent 32.1, Red Cell Distribution Width 16.8H, Platelet Count 85L, Mean Platelet Volume 9.5, Neutrophils (%) (Auto) , Lymphocytes (%) (Auto) , Monocytes (%) (Auto) , Eosinophils (%) (Auto) , Basophils (%) (Auto) , Differential Total Cells Counted 100, Neutrophils % ( Manual) 89H, Lymphocytes % (Manual) 5L, Monocytes % (Manual) 2, Eosinophils % ( Manual) 0, Basophils % (Manual) 0, Band Neutrophils 4, Platelet Estimate DecreasedL, Platelet Morphology Normal, Hypochromasia 2+, Anisocytosis 1+, Sodium Level 148H, Potassium Level 3.7, Chloride Level 110H, Carbon Dioxide Level 32, Anion Gap 6, Blood Urea Nitrogen 29H, Creatinine 1.3, Estimat Glomerular Filtration Rate , Glucose Level 72L, Calcium Level 8.2L, Phosphorus Level 2.3L, Magnesium Level 1.7L, Total Bilirubin 1.3H, Direct Bilirubin 0.4H, Aspartate Amino Transf (AST/SGOT) 35, Alanine Aminotransferase (ALT/SGPT) 37, Alkaline Phosphatase 98, Troponin I 0.088H, Total Protein 5.9L, Albumin 1.7L, Globulin 4.2, Albumin/Globulin Ratio 0.4L 11/26/17 10:55: Body Fluid Source [Pending], Body Fluid Volume [Pending], Body Fluid Appearance [Pending], Body Fluid RBC [Pending], Body Fluid Total Nucleated Cells [Pending] Height (Feet): 6 Height (Inches): 0.00 Weight (Pounds): 135 General Appearance: thin EENT: PERRL/EOMI Neck: normal alignment Cardiovascular: regular rhythm Respiratory/Chest: rhonchi - bilaterally Abdomen: non tender, other - peg Edema: no edema noted Arm (L), no edema noted Arm (R), no edema noted Leg (L), no edema noted Leg (R), no edema noted Pedal (L), no edema noted Pedal (R), no edema noted Generalized Objective sedated on vent HODAN GAYTAN Nov 26, 2017 13:25
[2017-11-26] MEDS: Phospha 250 Neutral tab ORAL SCH ×2 (14:39→17:41)
[2017-11-26] MEDS: Magnesium Oxide 400mg tab ORAL SCH (17:43)
[2017-11-26] MEDS: Vancomycin 1250mg/D5W 250ml IVPB SCH (19:47)
[2017-11-27] VITALS (43 sets, daily range): BP systolic 80–139; BP diastolic 36–92
[2017-11-27 04:17] LABS: HEMATOCRIT 30.4 % (42.0-52.0); HEMOGLOBIN 9.7 G/DL (14.2-18.0); MEAN CORPUSCULAR VOLUME 92 FL (80-99); PLATELET COUNT 88 K/UL (150-450); RED CELL DISTRIBUTION WIDTH 16.1 % (11.6-14.8); WHITE BLOOD COUNT 20.6 K/UL (4.8-10.8)
[2017-11-27 05:09] LABS: ANION GAP 9 mmol/L (5-15); BLOOD UREA NITROGEN 23 mg/dL (7-18); CALCIUM 7.6 MG/DL (8.5-10.1); CARBON DIOXIDE 28 MMOL/L (21-32); CHLORIDE 111 MMOL/L (98-107); CREATININE 1.1 MG/DL (0.55-1.30); PHOSPHORUS 2.9 MG/DL (2.5-4.9); POTASSIUM 3.2 MMOL/L (3.5-5.1); SODIUM 148 MMOL/L (136-145)
[2017-11-27] MEDS: dilTIAZem HCl 60mg tab ORAL SCH ×4 (05:53→18:00)
[2017-11-27] MEDS: Piperacillin/Tazobactam 3.375 GM in NS 110 ML IVPB SCH ×3 (05:53→21:50)
[2017-11-27] MEDS: Midazolam for drip 50 MG in NS 90 ML IVPB SCH ×2 (06:41→20:23)
[2017-11-27] MEDS: Phospha 250 Neutral tab ORAL SCH ×3 (08:24→18:02)
--- NOTE | 2017-11-27 08:24 | Pulmonology Progress Note ---
Assessment/Plan Assessment/Plan 1. Pneumonia, healthcare acquired. 2. Pleural effusions. 3. Chronic systolic congestive heart failure. 4. Hypotension, due to septic shock, improved. 5. Elevation of troponin, possible acute coronary syndrome. 6. History of CVA with dysarthria and dysphagia. 7. Respiratory failure acute on chronic. 8. Septic shock. 9. Indwelling Reyes 10. GT thoracentesis 200 cc loculated blood tinged fluid; few WBC T down start weaning trial cont abx CXR reviewed disc w RN Subjective ROS Limited/Unobtainable: Yes Allergies: Coded Allergies: VINCENT INHIBITORS (Verified Allergy, Mild, 08/06/17) SHELLFISH (Verified Allergy, Unknown, 07/01/11) Objective Last 24 Hour Vital Signs Date Time Temp Pulse Resp B/P (MAP) Pulse Ox O2 Delivery O2 Flow Rate FiO2 11/27/17 08:00 50 11/27/17 07:00 19 11/27/17 07:00 69 18 128/49 100 Mechanical Ventilator 50 11/27/17 06:48 82 21 50 11/27/17 06:41 18 11/27/17 06:00 19 11/27/17 06:00 69 18 128/48 99 Mechanical Ventilator 50 11/27/17 05:53 72 108/50 11/27/17 05:25 80 18 Mechanical Ventilator 50 11/27/17 05:22 84 18 50 11/27/17 05:00 84 19 139/47 99 Mechanical Ventilator 50 11/27/17 05:00 18 11/27/17 04:00 98.0 72 19 99/69 95 Mechanical Ventilator 50 98.0 11/27/17 04:00 18 11/27/17 04:00 69 11/27/17 04:00 50 11/27/17 03:30 73 19 50 11/27/17 03:00 18 11/27/17 03:00 75 19 101/56 97 Mechanical Ventilator 50 11/27/17 02:00 75 19 124/92 99 Mechanical Ventilator 50 11/27/17 02:00 18 11/27/17 01:30 82 18 50 11/27/17 01:00 18 11/27/17 01:00 71 18 112/42 99 Mechanical Ventilator 50 11/27/17 00:00 50 11/27/17 00:00 98.0 73 19 120/65 100 Mechanical Ventilator 50 98.0 11/27/17 00:00 79 11/27/17 00:00 18 11/27/17 00:00 76 112/42 11/26/17 23:02 78 19 50 11/26/17 23:00 74 19 100/41 98 Mechanical Ventilator 50 11/26/17 23:00 18 11/26/17 22:00 18 11/26/17 22:00 72 18 116/42 100 Mechanical Ventilator 50 11/26/17 21:30 82 19 50 11/26/17 21:29 18 11/26/17 21:00 75 19 114/52 100 Mechanical Ventilator 50 11/26/17 21:00 18 11/26/17 21:00 73 97/52 11/26/17 20:00 50 11/26/17 20:00 78 11/26/17 20:00 18 11/26/17 20:00 98.1 76 19 97/52 99 Mechanical Ventilator 50 98.1 11/26/17 19:30 58 17 50 11/26/17 19:00 18 11/26/17 19:00 73 18 112/38 100 Mechanical Ventilator 50 11/26/17 18:00 18 11/26/17 18:00 73 18 95/45 100 Mechanical Ventilator 50 11/26/17 17:35 61 132/36 11/26/17 17:30 68 18 128/44 100 Mechanical Ventilator 50 11/26/17 17:00 61 18 121/30 100 Mechanical Ventilator 50 11/26/17 17:00 18 11/26/17 16:32 68 18 50 11/26/17 16:30 64 18 121/30 100 Mechanical Ventilator 50 11/26/17 16:00 50 11/26/17 16:00 99.1 63 18 122/35 100 Mechanical Ventilator 50 99.1 11/26/17 16:00 18 11/26/17 15:47 66 11/26/17 15:30 67 18 120/32 100 Mechanical Ventilator 50 11/26/17 15:29 80 18 50 11/26/17 15:00 18 11/26/17 15:00 18 11/26/17 15:00 74 18 115/37 100 Mechanical Ventilator 50 11/26/17 14:30 67 18 115/37 100 Mechanical Ventilator 50 11/26/17 14:00 18 11/26/17 14:00 79 18 135/35 100 Mechanical Ventilator 50 11/26/17 13:34 18 11/26/17 13:30 68 18 120/34 100 Mechanical Ventilator 50 11/26/17 13:00 71 18 120/45 100 Mechanical Ventilator 50 11/26/17 13:00 18 11/26/17 12:58 64 18 50 11/26/17 12:30 66 18 122/34 100 Mechanical Ventilator 50 11/26/17 12:00 99.6 71 18 108/37 100 Mechanical Ventilator 50 99.6 11/26/17 12:00 50 11/26/17 12:00 18 11/26/17 11:44 78 103/39 11/26/17 11:33 68 11/26/17 11:30 72 18 108/37 100 Mechanical Ventilator 50 11/26/17 11:07 78 18 50 11/26/17 11:00 76 18 103/39 100 Mechanical Ventilator 50 11/26/17 11:00 18 11/26/17 10:30 80 20 81/57 100 Mechanical Ventilator 50 11/26/17 10:04 99.9 11/26/17 10:00 99.9 65 18 121/27 100 Mechanical Ventilator 50 99.9 11/26/17 10:00 18 11/26/17 09:34 102.0 11/26/17 09:30 72 18 112/37 100 Mechanical Ventilator 50 11/26/17 09:26 72 18 50 11/26/17 09:00 102.0 76 18 112/37 100 Mechanical Ventilator 50 102.0 11/26/17 09:00 18 11/26/17 09:00 74 90/45 Intake and Output 11/26/17 11/27/17 19:00 07:00 Intake Total 625.5 ml 997.500 ml Output Total 2145 ml 1175 ml Balance -1519.5 ml -177.500 ml Intake Free Water 30 ml 50 ml IV Total 545.5 ml 507.500 ml Tube Feeding 50 ml 440 ml Output Urine Total 2145 ml 1175 ml # Bowel Movements 1 General Appearance: no acute distress HEENT: atraumatic Respiratory/Chest: decreased breath sounds, crackles/rales Cardiovascular: normal rate Abdomen: soft, non tender Microbiology Date/Time Source Procedure Growth Status 11/25/17 15:40 Sputum Gram Stain Pending Resulted 11/25/17 15:40 Sputum Culture - Preliminary Gram Positive Cocci Resulted 11/25/17 21:20 Indwelling Cath Urine Culture - Preliminary NO GROWTH Resulted Laboratory Tests 11/26/17 10:55: Body Fluid Source Thoracentesis, Body Fluid Volume 15, Body Fluid Appearance Dianna/turbid, Body Fluid [place] [address], Body Fluid Total Nucleated Cells 8, Body Fluid Polynuclear WBCs (%) 63, Body Fluid Mononuclear WBCs (%) 37, Body Fluid Mesothelial Cells (%) 0 11/27/17 03:30: White Blood Count 20.6H, Red Blood Count 3.30L, Hemoglobin 9.7L, Hematocrit 30.4L, Mean Corpuscular Volume 92, Mean Corpuscular Hemoglobin 29.3, Mean Corpuscular Hemoglobin Concent 31.8L, Red Cell Distribution Width 16.1H, Platelet Count 88L, Mean Platelet Volume 9.5, Neutrophils (%) (Auto) , Lymphocytes (%) (Auto) , Monocytes (%) (Auto) , Eosinophils (%) (Auto) , Basophils (%) (Auto) , Neutrophils % (Manual) [Pending], Lymphocytes % (Manual) [Pending], Platelet Estimate [Pending], Platelet Morphology [Pending], Sodium Level 148H, Potassium Level 3.2L, Chloride Level 111H, Carbon Dioxide Level 28, Anion Gap 9, Blood Urea Nitrogen 23H, Creatinine 1.1, Estimat Glomerular Filtration Rate , Glucose Level 118H, Calcium Level 7.6L, Phosphorus Level 2.9, Magnesium Level 1.7L, Troponin I 0.050 Current Medications Medications (Trade) Dose Ordered Sig/Scot Route PRN Reason Start Time Stop Time Status Last Admin Dose Admin Aspirin (ASA) 81 mg DAILY NG 11/26/17 09:00 12/26/17 08:59 Diltiazem HCl (Cardizem) 60 mg EVERY 6 HOURS ORAL 11/25/17 18:00 12/25/17 17:59 Furosemide (Lasix) 40 mg DAILY IV 11/26/17 14:00 12/26/17 13:59 11/26/17 13:56 Heparin Sodium (Porcine) (Heparin 5000 units/ml) 5,000 units EVERY 12 HOURS SUBQ 11/25/17 21:00 12/25/17 20:59 11/25/17 20:21 Magnesium Oxide (Mag-Ox 400mg) 400 mg THREE TIMES A DAY ORAL 11/26/17 18:00 12/26/17 17:59 11/26/17 17:43 Metoprolol Tartrate (Lopressor) 25 mg Q12HR ORAL 11/25/17 21:00 12/25/17 20:59 Midazolam HCl 50 mg/Sodium Chloride 100 ml @ 0 mls/hr Q24H IVPB 11/25/17 18:00 12/02/17 17:29 11/27/17 06:41 Pantoprazole (Protonix) 40 mg DAILY IVP 11/26/17 10:15 12/26/17 10:14 11/26/17 11:13 Phosphorus (Phospha 250 Neutral) 250 mg THREE TIMES A DAY ORAL 11/26/17 13:55 12/26/17 13:54 11/26/17 17:41 Piperacillin Sod/ Tazobactam Sod 3.375 gm/Sodium Chloride 110 ml @ 27.5 mls/hr EVERY 8 HOURS IVPB 11/25/17 22:00 11/30/17 21:59 11/27/17 05:53 Potassium Chloride (K-Dur) 40 meq DAILY ORAL 11/26/17 14:00 12/26/17 13:59 11/26/17 13:56 Vancomycin HCl (Vanco rx to dose) 1 ea DAILY PRN MISC Per rx protocol 11/25/17 17:30 12/25/17 17:29 Vancomycin HCl/ Dextrose 250 ml @ 166.667 mls/hr Q24H IVPB 11/26/17 20:00 12/01/17 19:59 11/26/17 19:47 ERIN ARIAS 14, 2018 08:23
[2017-11-27] MEDS: Pantoprazole Inj IVP SCH (08:25)
[2017-11-27] MEDS: Aspirin Baby 81mg NG SCH (08:25)
[2017-11-27] MEDS: Magnesium Oxide 400mg tab ORAL SCH ×3 (08:25→18:02)
[2017-11-27] MEDS: Heparin 5000 units/ml inj SUBQ SCH ×2 (08:25→21:00)
[2017-11-27] MEDS ORDERED: Pantoprazole Inj IVP SCH (09:00)
[2017-11-27] MEDS: Metoprolol 25mg tab ORAL SCH ×2 (09:29→21:14)
--- NOTE | 2017-11-27 10:21 | Diagnostic Imaging Report ---
Indication: Dyspnea Technique: One view of the chest Comparison: 11/26/2017 Findings: Stable satisfactory position of endotracheal tube. Right chest pacemaker remains. Large right pleural effusion persists. Small lucency in the right pleural space has resolved. Diffuse bilateral interstitial and airspace disease is unchanged. The heart is enlarged Impression: Essentially unchanged, over one day, findings as above, including extensive bilateral parenchymal disease, likely loculated right pleural effusion Small right inferior pleural lucency, thought to represent a tiny ex vacuo pneumothorax after thoracentesis, has resolved
[2017-11-27] MEDS ORDERED: Tubing IV Secondary IV ONE (14:45)
--- NOTE | 2017-11-27 19:34 | General Progress Note ---
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 SNOMED: 031923236 (6) Pleural effusion ICD Codes: J90 - Pleural effusion, not elsewhere classified SNOMED: 18122411 (7) 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 ICD Codes: M51.26 - Other intervertebral disc displacement, lumbar region SNOMED: 61869767 (8) Urinary retention ICD Codes: R33.9 - Retention of urine, unspecified SNOMED: 163285764 (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) ICD Codes: D50.0 - Iron deficiency anemia secondary to blood loss (chronic) SNOMED: 74986906, 436355010 (10) Atrial fibrillation ICD Codes: I48.91 - Atrial fibrillation SNOMED: 89811037 Qualifiers: Qualified Codes: I48.2 - Chronic atrial fibrillation (11) Pneumonia ICD Codes: J18.9 - Pneumonia, unspecified organism SNOMED: 946718551 Qualifiers: Qualified Codes: J18.9 - Pneumonia, unspecified organism (12) Acute respiratory failure ICD Codes: J96.00 - Acute respiratory failure, unspecified whether with hypoxia or hypercapnia SNOMED: 42035684 Qualifiers: Qualified Codes: J96.01 - Acute respiratory failure with hypoxia Assessment/Plan HC acquired pneumoniaj, possible aspiration, continue vanco and zosyn chf, resume diuretics as hypotension resolved parox afib , continue meds, replaceK high risk, daughter aware, full code icu time 40 min Subjective ROS Limited/Unobtainable: Yes Allergies: Coded Allergies: VINCENT INHIBITORS (Verified Allergy, Mild, 08/06/17) SHELLFISH (Verified Allergy, Unknown, 07/01/11) Objective Last 24 Hour Vital Signs Date Time Temp Pulse Resp B/P (MAP) Pulse Ox O2 Delivery O2 Flow Rate FiO2 11/27/17 19:00 19 23 114/45 99 Mechanical Ventilator 35 11/27/17 19:00 20 11/27/17 18:48 78 24 35 11/27/17 18:30 20 23 103/61 100 Mechanical Ventilator 35 11/27/17 18:00 87 23 112/66 98 Mechanical Ventilator 35 11/27/17 18:00 21 11/27/17 17:30 86 24 91/57 98 Mechanical Ventilator 35 11/27/17 17:00 86 25 118/55 92 Mechanical Ventilator 35 11/27/17 17:00 19 11/27/17 16:38 77 19 35 11/27/17 16:30 82 24 118/50 99 Mechanical Ventilator 35 11/27/17 16:10 35 11/27/17 16:00 81 24 83/53 95 Mechanical Ventilator 35 11/27/17 16:00 80 11/27/17 16:00 20 11/27/17 15:30 79 24 110/51 96 Mechanical Ventilator 35 11/27/17 15:00 99.4 69 24 97/37 96 Mechanical Ventilator 35 99.4 11/27/17 15:00 29 11/27/17 14:40 71 33 40 11/27/17 14:40 35 11/27/17 14:30 75 24 93/44 98 Mechanical Ventilator 40 11/27/17 14:00 19 11/27/17 14:00 65 26 93/41 97 Mechanical Ventilator 40 11/27/17 13:30 81 22 104/46 100 Mechanical Ventilator 40 11/27/17 13:03 68 24 40 11/27/17 13:00 77 24 99/43 100 Mechanical Ventilator 40 11/27/17 13:00 18 11/27/17 12:30 72 21 109/36 100 Mechanical Ventilator 40 11/27/17 12:00 25 11/27/17 12:00 73 97/41 11/27/17 12:00 73 23 97/41 100 Mechanical Ventilator 40 11/27/17 11:46 72 18 11:40 40 11/27/17 11:30 99.0 73 21 104/40 96 Mechanical Ventilator 45 99.0 11/27/17 11:23 49 21 40 11/27/17 11:00 71 21 92/43 100 Mechanical Ventilator 45 18 11:00 19 18 10:45 78 20 105/41 100 Mechanical Ventilator 45 18 10:30 69 22 124/41 96 Mechanical Ventilator 45 18 10:15 69 19 117/47 96 Mechanical Ventilator 45 18 10:00 85 21 109/38 100 Mechanical Ventilator 45 11/27/18 10:00 21 11/27/17 09:45 77 20 109/38 99 Mechanical Ventilator 45 18 09:30 76 21 110/40 96 Mechanical Ventilator 45 18 09:29 83 124/38 11/27/17 09:15 76 20 124/38 100 Mechanical Ventilator 45 11/27/17 09:08 45 11/27/17 09:07 77 17 45 11/27/17 09:06 100 11/27/17 09:00 79 19 108/45 100 Mechanical Ventilator 50 11/27/17 09:00 19 11/27/17 08:00 50 11/27/17 08:00 19 11/27/17 08:00 98.5 78 19 117/40 100 Mechanical Ventilator 50 98.5 11/27/17 07:40 80 11/27/17 07:00 19 11/27/17 07:00 69 18 128/49 100 Mechanical Ventilator 50 11/27/17 06:48 82 21 50 11/27/17 06:41 18 11/27/17 06:00 19 11/27/17 06:00 69 18 128/48 99 Mechanical Ventilator 50 11/27/17 05:53 72 108/50 11/27/17 05:25 80 18 Mechanical Ventilator 50 11/27/17 05:22 84 18 50 11/27/17 05:00 84 19 139/47 99 Mechanical Ventilator 50 11/27/17 05:00 18 11/27/17 04:00 98.0 72 19 99/69 95 Mechanical Ventilator 50 98.0 11/27/17 04:00 18 11/27/17 04:00 69 11/27/17 04:00 50 18 03:30 73 19 50 18 03:00 18 11/27/17 03:00 75 19 101/56 97 Mechanical Ventilator 50 11/27/17 02:00 75 19 124/92 99 Mechanical Ventilator 50 3/14/18 02:00 18 11/27/17 01:30 82 18 50 11/27/17 01:00 18 11/27/17 01:00 71 18 112/42 99 Mechanical Ventilator 50 11/27/17 00:00 50 11/27/17 00:00 98.0 73 19 120/65 100 Mechanical Ventilator 50 98.0 11/27/17 00:00 79 11/27/17 00:00 18 11/27/17 00:00 76 112/42 11/26/17 23:02 78 19 50 11/26/17 23:00 74 19 100/41 98 Mechanical Ventilator 50 11/26/17 23:00 18 11/26/17 22:00 18 11/26/17 22:00 72 18 116/42 100 Mechanical Ventilator 50 11/26/17 21:30 82 19 50 11/26/17 21:29 18 11/26/17 21:00 75 19 114/52 100 Mechanical Ventilator 50 11/26/17 21:00 18 11/26/17 21:00 73 97/52 11/26/17 20:00 50 11/26/17 20:00 78 11/26/17 20:00 18 11/26/17 20:00 98.1 76 19 97/52 99 Mechanical Ventilator 50 98.1 Intake and Output 11/26/17 11/27/17 19:00 07:00 Intake Total 625.5 ml 997.500 ml Output Total 2145 ml 1175 ml Balance -1519.5 ml -177.500 ml Intake Free Water 30 ml 50 ml IV Total 545.5 ml 507.500 ml Tube Feeding 50 ml 440 ml Output Urine Total 2145 ml 1175 ml # Bowel Movements 1 Laboratory Tests 11/27/17 03:30: White Blood Count 20.6H, Red Blood Count 3.30L, Hemoglobin 9.7L, Hematocrit 30.4L, Mean Corpuscular Volume 92, Mean Corpuscular Hemoglobin 29.3, Mean Corpuscular Hemoglobin Concent 31.8L, Red Cell Distribution Width 16.1H, Platelet Count 88L, Mean Platelet Volume 9.5, Neutrophils (%) (Auto) , Lymphocytes (%) (Auto) , Monocytes (%) (Auto) , Eosinophils (%) (Auto) , Basophils (%) (Auto) , Differential Total Cells Counted 100, Neutrophils % ( Manual) 94H, Lymphocytes % (Manual) 4L, Monocytes % (Manual) 2, Eosinophils % ( Manual) 0, Basophils % (Manual) 0, Band Neutrophils 0, Platelet Estimate DecreasedL, Platelet Morphology Normal, Hypochromasia 1+, Anisocytosis 1+, Sodium Level 148H, Potassium Level 3.2L, Chloride Level 111H, Carbon Dioxide Level 28, Anion Gap 9, Blood Urea Nitrogen 23H, Creatinine 1.1, Estimat Glomerular Filtration Rate , Glucose Level 118H, Calcium Level 7.6L, Phosphorus Level 2.9, Magnesium Level 1.7L, Troponin I 0.050 11/27/17 19:15: Vancomycin Level Trough [Pending] Height (Feet): 6 Height (Inches): 0.00 Weight (Pounds): 132 General Appearance: lethargic EENT: normal ENT inspection Neck: normal alignment Cardiovascular: regular rhythm Respiratory/Chest: rhonchi - bilaterally Abdomen: non tender, soft Edema: no edema noted Arm (L), no edema noted Arm (R), no edema noted Leg (L), no edema noted Leg (R), no edema noted Pedal (L), no edema noted Pedal (R), no edema noted Generalized Neurologic: other - sedated Objective sedated on vent HODAN GAYTAN Nov 27, 2017 19:34
[2017-11-27] MEDS: Vancomycin 1250mg/D5W 250ml IVPB SCH (20:28)
[2017-11-28] VITALS (48 sets, daily range): BP systolic 84–128; BP diastolic 32–70
--- NOTE | 2017-11-28 01:00 | Progress Note ---
DATE: 11/27/2017 SUBJECTIVE: The patient is seen in the intensive care unit. He remains on ventilator support. He is status post thoracentesis of 200 mL loculated serosanguineous fluid. The patient started on some weaning trials today. He is not ready for extubation. Monitored rhythm, atrial fibrillation, demand pacing, rate in the 60s to 90 range. OBJECTIVE: VITAL SIGNS: Afebrile, blood pressure 128/49, pulse 69, respiratory rate 18. LUNGS: Coarse breath sounds. Scattered rhonchi. HEART: Irregularly irregular rhythm. Normal S1, S2. A 1/6 systolic murmur at apex. ABDOMEN: Soft, nontender. No guarding or rebound. G-tube intact. GENITOURINARY: There is a Reyes catheter. EXTREMITIES: Reveal trace dependent edema. LABORATORY DATA: Labs today, white count 20.6, hemoglobin 9.7. Sodium 148, potassium 3.2, BUN 23, creatinine 1.1, bicarbonate 28. Troponin is 0.050. Magnesium 1.7. IMPRESSION: 1. Healthcare-acquired pneumonia. 2. Respiratory failure. 3. Paroxysmal atrial fibrillation. 4. Permanent pacemaker. 5. Acute on chronic systolic and diastolic congestive heart failure. 6. Anemia. 7. Cerebrovascular disease with dementia. 8. Dehydration. 9. Hypernatremia. 10. Hypokalemia. 11. Hypomagnesemia. PLAN: 1. Antimicrobials. 2. Ventilator support with wean. 3. IV magnesium and potassium. 4. Free water replacement. 5. No diuretics at this time. 6. Respiratory hygiene. 7. DVT prophylaxis. 8. Anti-platelet therapy. High risk for anticoagulation at this time due to increased bleeding risk. Chay Godinez M.D. DR: Sia JOB#: [id number] CC:
--- NOTE | 2017-11-28 01:45 | Consultation ---
DATE OF CONSULTATION: 11/26/2017 CARDIOLOGY CONSULTATION CONSULTING PHYSICIAN: Chay Godinez M.D. REQUESTING PHYSICIAN: Martinez Rubalcava M.D. REASON FOR CONSULTATION: Respiratory failure in the setting of cardiomyopathy with cardiac arrhythmias. HISTORY OF PRESENT ILLNESS: This is a 72-year-old male with longstanding history of ischemic and hypertensive cardiomyopathy, paroxysmal atrial fibrillation, and permanent pacemaker. He has been residing at a long term facility over the past few months. He presented to the emergency room yesterday with hypoxia and increasing shortness of breath. He was noted to have hypotension with systolic pressure in the 80s. He was given a fluid challenge with some progress. He was also noted to have an x-ray revealing bilateral interstitial infiltrates and because of worsening respiratory parameters, required intubation and mechanical ventilation. The patient was last hospitalized here approximately two weeks ago and had a pleural effusion that was tapped. It was loculated and the cultures were negative. PAST MEDICAL HISTORY: CVA with dementia, dysarthria, G-tube, incontinent of urine, paroxysmal atrial fibrillation, permanent pacemaker, ischemic heart disease, hypertensive heart disease, chronic systolic and diastolic congestive heart failure, hyperlipidemia, constipation, and COPD. MEDICATIONS: Prior to admission are reviewed and reconciled. ALLERGIES: Include angiotensin-converting enzyme inhibitors causing angioedema. He has tolerated angiotensin-receptor blockers. SOCIAL HISTORY: Prior smoker, 30 to 40 pack-years. Social alcohol. No substance abuse. FAMILY HISTORY: Noncontributory. REVIEW OF SYSTEMS: Unable to obtain review of systems, however, prior records are reviewed as well as outpatient evaluation. The patient's permanent pacemaker was last interrogated approximately three months ago and was noted to have battery life of approximately six months at that time. PHYSICAL EXAMINATION: GENERAL: Sedated, on ventilator support. VITAL SIGNS: Blood pressure is 121/30, heart rate 64, respiratory rate 18, and temperature 99.1 degrees. HEENT: Orally intubated. Pupils are reactive. LUNGS: Bilateral breath sounds and rhonchi. CARDIAC: Irregularly irregular rhythm. Normal S1 and S2 with a 1/6 systolic murmur at the apex. ABDOMEN: Soft, nontender. G-tube intact. GENITOURINARY: Reyes catheter in place. EXTREMITIES: With trace to 1+ dependent edema. NEUROLOGIC: The patient seems to move all extremities. LABORATORY AND DIAGNOSTIC DATA: White count 17 and hemoglobin 9.6. Sodium 148, potassium 3.7, bicarbonate 32, BUN 29, creatinine 1.3. Magnesium 1.7. Troponin 0.088. Albumin 1.7. Urinalysis on admission revealed 2 to 4 white cells. Chest x-ray reveals pleural effusion and bilateral infiltrates. IMPRESSION: 1. Respiratory failure. 2. Healthcare-acquired pneumonia. 3. Pleural effusion, status post thoracentesis. 4. Paroxysmal atrial fibrillation with controlled ventricular response permanent pacemaker with decreasing battery life suspected. 5. Chronic systolic and diastolic congestive heart failure. 6. Acute myocardial ischemia. 7. Cerebrovascular disease with dementia. 8. Dysphagia with G-tube. 9. Dehydration. 10. Hyponatremia. 11. Hypomagnesemia. 12. Critical and guarded. PLAN: 1. Antimicrobials. 2. Ventilator support. 3. Continue diltiazem and carvedilol with titration. 4. Maintain anti-platelet therapy. 5. No plans for anticoagulation presently due to increased bleeding risk. We will readdress once clinical parameters improve. 6. Monitor volume status. Diuresis as needed. Presently not indicated, however, free water replacement and IV magnesium replacement. 7. Monitor potassium levels. 8. DVT prophylaxis. 9. Stress ulcer prophylaxis. 10. Pacemaker interrogation. Sonia Bartholomew JOB#: [id number] CC:
[2017-11-28] MEDS: Midazolam for drip 50 MG in NS 90 ML IVPB SCH ×2 (04:15→19:47)
[2017-11-28 04:54] LABS: ANION GAP 6 mmol/L (5-15); BLOOD UREA NITROGEN 26 mg/dL (7-18); CALCIUM 7.4 MG/DL (8.5-10.1); CARBON DIOXIDE 30 MMOL/L (21-32); CHLORIDE 111 MMOL/L (98-107); CREATININE 1.5 MG/DL (0.55-1.30); POTASSIUM 3.4 MMOL/L (3.5-5.1); SODIUM 147 MMOL/L (136-145)
[2017-11-28] MEDS: dilTIAZem HCl 60mg tab ORAL SCH ×4 (06:00→17:45)
[2017-11-28] MEDS: Piperacillin/Tazobactam 3.375 GM in NS 110 ML IVPB SCH ×3 (06:11→22:03)
[2017-11-28] MEDS: Heparin 5000 units/ml inj SUBQ SCH ×2 (09:00→21:00)
[2017-11-28] MEDS: Metoprolol 25mg tab ORAL SCH ×2 (09:00→21:00)
[2017-11-28] MEDS: Magnesium Oxide 400mg tab ORAL SCH ×3 (09:53→17:49)
[2017-11-28] MEDS: Pantoprazole Inj IVP SCH (09:53)
[2017-11-28] MEDS: Phospha 250 Neutral tab ORAL SCH ×3 (09:53→17:49)
[2017-11-28] MEDS: Aspirin Baby 81mg NG SCH (09:56)
--- NOTE | 2017-11-28 13:35 | Wound Care Consultation ---
Wound Assessment Wound Assessment : Wound Number: 1 Wound Present on Admission: Yes New Wound: No Status Change of Wound: No Wound Location Body Site Modif: mid Wound Location Body Site: sacral Wound Type: pressure ulcer Krissy Test: Does not Krissy Pressure Ulcer Stage: II Wound Thickness: Partial Thickness Wound Length: 1.0 Wound Width: 0.5 Wound Depth: less than 0.1 Percent of Wound [place]/Red: 100 Wound Drainage Amount: None Wound Drainage Odor: None/Absent Tissue Surrounding Wound: full thickness scar tissue Wound General Appearance: Reddened Wound Comment #1 Sacral stage II pressure ulcer on full thickness scar tissue #2 Left and right lower leg with dry flaky skin Recommendation -Local wound care per protocol -Offload both heels -Heel protector on both heels -Optimize nutrition -Low air loss mattress -A&D ointment on both lower legs -Keep clean and dry -Turn and reposition -Assess and f/u accordingly for any changes TAMMIE DONALDSON RN Nov 28, 2017 13:35
--- NOTE | 2017-11-28 16:56 | Pulmonology Progress Note ---
Assessment/Plan Assessment/Plan 1. Pneumonia, healthcare acquired. 2. Pleural effusions. 3. Chronic systolic congestive heart failure. 4. Hypotension, due to septic shock, improved. 5. Elevation of troponin, possible acute coronary syndrome. 6. History of CVA with dysarthria and dysphagia. 7. Respiratory failure acute on chronic. 8. Septic shock. 9. Indwelling Reyes 10. GT sput c/s s aureus cont vanco, Zosyn start weaning trial tomorrow wean Versed CXR reviewed disc w RN, Dr Rubalcava Subjective ROS Limited/Unobtainable: Yes Allergies: Coded Allergies: VINCENT INHIBITORS (Verified Allergy, Mild, 08/06/17) SHELLFISH (Verified Allergy, Unknown, 07/01/11) Objective Last 24 Hour Vital Signs Date Time Temp Pulse Resp B/P (MAP) Pulse Ox O2 Delivery O2 Flow Rate FiO2 11/28/17 16:00 71 11/28/17 16:00 70 18 125/52 100 Mechanical Ventilator 28 11/28/17 16:00 30 11/28/17 16:00 30 11/28/17 15:30 73 18 115/43 100 Mechanical Ventilator 28 11/28/17 15:05 69 18 50 11/28/17 15:00 61 18 117/43 100 Mechanical Ventilator 28 11/28/17 14:30 71 19 116/49 100 Mechanical Ventilator 28 11/28/17 14:00 74 21 119/48 100 Mechanical Ventilator 28 11/28/17 13:30 74 21 107/51 100 Mechanical Ventilator 28 11/28/17 13:29 66 19 50 11/28/17 13:00 74 21 111/46 100 Mechanical Ventilator 28 11/28/17 12:30 79 21 116/52 100 Mechanical Ventilator 28 11/28/17 12:00 78 21 106/45 100 Mechanical Ventilator 28 11/28/17 12:00 30 11/28/17 12:00 72 11/28/17 12:00 69 104/49 11/28/17 12:00 30 11/28/17 11:30 79 21 112/51 100 Mechanical Ventilator 28 11/28/17 11:00 78 21 118/57 97 Mechanical Ventilator 28 11/28/17 10:51 69 20 50 11/28/17 10:30 76 21 128/53 97 Mechanical Ventilator 28 11/28/17 10:00 78 21 101/36 97 Mechanical Ventilator 28 11/28/17 09:30 78 21 102/34 97 Mechanical Ventilator 28 11/28/17 09:13 69 21 35 11/28/17 09:00 79 21 91/41 97 Mechanical Ventilator 28 11/28/17 09:00 74 94/49 11/28/17 08:30 77 21 100/46 97 Mechanical Ventilator 28 11/28/17 08:00 30 11/28/17 08:00 99.9 78 21 105/45 92 Mechanical Ventilator 28 99.9 11/28/17 08:00 67 11/28/17 08:00 30 11/28/17 07:30 100.1 71 21 97/42 92 Mechanical Ventilator 28 100.1 11/28/17 07:17 77 23 28 11/28/17 07:00 73 21 102/52 97 Mechanical Ventilator 28 11/28/17 06:30 77 21 109/44 97 Mechanical Ventilator 28 11/28/17 06:00 72 21 95/51 100 Mechanical Ventilator 28 11/28/17 06:00 19 11/28/17 06:00 77 98/42 11/28/17 05:30 77 20 88/50 100 Mechanical Ventilator 28 11/28/17 05:00 80 21 109/56 100 Mechanical Ventilator 28 11/28/17 05:00 23 11/28/17 05:00 76 21 30 11/28/17 04:30 77 22 94/58 100 Mechanical Ventilator 35 11/28/17 04:15 23 11/28/17 04:00 95 11/28/17 04:00 22 11/28/17 04:00 30 11/28/17 04:00 77 22 96/45 100 Mechanical Ventilator 35 11/28/17 03:50 72 21 30 11/28/17 03:30 75 22 107/44 100 Mechanical Ventilator 35 11/28/17 03:00 75 21 106/41 100 Mechanical Ventilator 35 11/28/17 03:00 20 11/28/17 02:30 74 20 96/44 100 Mechanical Ventilator 35 11/28/17 02:00 74 23 96/32 100 Mechanical Ventilator 35 11/28/17 02:00 23 11/28/17 01:30 76 23 84/42 100 Mechanical Ventilator 35 11/28/17 01:00 23 11/28/17 01:00 82 23 90/46 100 Mechanical Ventilator 35 11/28/17 00:37 75 24 30 11/28/17 00:30 80 23 105/50 100 Mechanical Ventilator 35 11/28/17 00:00 74 11/28/17 00:00 98.9 76 25 93/56 100 Mechanical Ventilator 35 98.9 11/28/17 00:00 20 11/28/17 00:00 77 93/51 11/28/17 00:00 30 11/27/17 23:30 75 25 109/56 100 Mechanical Ventilator 35 11/27/17 23:00 85 22 35 11/27/17 23:00 23 11/27/17 23:00 75 21 99/60 99 Mechanical Ventilator 35 11/27/17 22:30 75 23 80/49 99 Mechanical Ventilator 35 11/27/17 22:00 23 11/27/17 22:00 75 23 84/46 99 Mechanical Ventilator 35 11/27/17 21:30 74 21 104/48 99 Mechanical Ventilator 35 11/27/17 21:14 89 116/47 11/27/17 21:04 84 19 35 11/27/17 21:00 81 21 107/46 99 Mechanical Ventilator 35 11/27/17 21:00 23 11/27/17 20:30 85 23 109/51 99 Mechanical Ventilator 35 11/27/17 20:23 19 11/27/17 20:00 85 11/27/17 20:00 85 23 104/37 99 Mechanical Ventilator 35 11/27/17 20:00 35 11/27/17 20:00 22 11/27/17 19:30 99.1 83 22 113/51 99 Mechanical Ventilator 35 99.1 11/27/17 19:00 19 23 114/45 99 Mechanical Ventilator 35 11/27/17 19:00 20 11/27/17 18:48 78 24 35 11/27/17 18:30 20 23 103/61 100 Mechanical Ventilator 35 11/27/17 18:00 87 23 112/66 98 Mechanical Ventilator 35 11/27/17 18:00 21 11/27/17 17:30 86 24 91/57 98 Mechanical Ventilator 35 11/27/17 17:00 86 25 118/55 92 Mechanical Ventilator 35 11/27/17 17:00 19 Intake and Output 11/27/17 11/28/17 19:00 07:00 Intake Total 882.5 ml 788.5 ml Output Total 1370 ml 440 ml Balance -487.5 ml 348.5 ml IV Total 282.5 ml 182.5 ml Tube Feeding 500 ml 600 ml Other 100 ml 6 ml Output Urine Total 1370 ml 440 ml General Appearance: no acute distress Respiratory/Chest: decreased breath sounds Cardiovascular: normal rate Microbiology Date/Time Source Procedure Growth Status 11/26/17 10:54 Thoracic Fluid Gram Stain - Final Resulted 11/26/17 10:54 Thoracic Fluid Body Fluid Culture - Preliminary NO GROWTH AFTER 48 HOURS Resulted 11/25/17 21:20 Indwelling Cath Urine Culture - Preliminary Enterococcus Faecium Resulted Laboratory Tests 11/27/17 19:15: Vancomycin Level Trough 7.8 11/28/17 04:10: Sodium Level 147H, Potassium Level 3.4L, Chloride Level 111H, Carbon Dioxide Level 30, Anion Gap 6, Blood Urea Nitrogen 26H, Creatinine 1.5H, Estimat Glomerular Filtration Rate , Glucose Level 133H, Calcium Level 7.4L 11/28/17 10:16: Arterial Blood pH 7.515H, Arterial Blood Partial Pressure CO2 35.9, Arterial Blood Partial Pressure O2 46.5*L, Arterial Blood HCO3 28.3H, Arterial Blood Oxygen Saturation 83.3L, Arterial Blood Base Excess 5.2, Chepe Test Positive Current Medications Medications (Trade) Dose Ordered Sig/Scot Route PRN Reason Start Time Stop Time Status Last Admin Dose Admin Aspirin (ASA) 81 mg DAILY NG 11/26/17 09:00 12/26/17 08:59 11/28/17 09:56 Diltiazem HCl (Cardizem) 60 mg EVERY 6 HOURS ORAL 11/25/17 18:00 12/25/17 17:59 Furosemide (Lasix) 40 mg DAILY IV 11/26/17 14:00 12/26/17 13:59 11/28/17 09:53 Heparin Sodium (Porcine) (Heparin 5000 units/ml) 5,000 units EVERY 12 HOURS SUBQ 11/25/17 21:00 12/25/17 20:59 11/25/17 20:21 Magnesium Oxide (Mag-Ox 400mg) 400 mg THREE TIMES A DAY ORAL 11/26/17 18:00 12/26/17 17:59 11/28/17 12:35 Metoprolol Tartrate (Lopressor) 25 mg Q12HR ORAL 11/25/17 21:00 12/25/17 20:59 11/27/17 21:14 Midazolam HCl 50 mg/Sodium Chloride 100 ml @ 0 mls/hr Q24H IVPB 11/25/17 18:00 12/02/17 17:29 11/28/17 04:15 Pantoprazole (Protonix) 40 mg DAILY IVP 11/26/17 10:15 12/26/17 10:14 11/28/17 09:53 Phosphorus (Phospha 250 Neutral) 250 mg THREE TIMES A DAY ORAL 11/26/17 13:55 12/26/17 13:54 11/28/17 12:35 Piperacillin Sod/ Tazobactam Sod 3.375 gm/Sodium Chloride 110 ml @ 27.5 mls/hr EVERY 8 HOURS IVPB 11/25/17 22:00 11/30/17 21:59 11/28/17 14:21 Potassium Chloride (K-Dur) 40 meq DAILY ORAL 11/26/17 14:00 12/26/17 13:59 11/28/17 09:54 Vancomycin HCl (Vanco rx to dose) 1 ea DAILY PRN MISC Per rx protocol 11/25/17 17:30 12/25/17 17:29 Vancomycin HCl/ Dextrose 250 ml @ 166.667 mls/hr Q24H IVPB 11/26/17 20:00 12/01/17 19:59 11/27/17 20:28 Vitamin A/Vitamin D (A & D Oint) 1 applic EVERY 12 HOURS TOPIC 11/28/17 21:00 12/28/17 20:59 ERIN ARIAS 15, 2018 16:56
[2017-11-28] MEDS: Vancomycin 1250mg/D5W 250ml IVPB SCH (19:56)
[2017-11-28] MEDS: Vitamin A&D Oint 2oz Tube TOPIC SCH (21:24)
--- NOTE | 2017-11-28 21:41 | General Progress Note ---
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 SNOMED: 001804247 (6) Pleural effusion ICD Codes: J90 - Pleural effusion, not elsewhere classified SNOMED: 47509806 (7) 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 ICD Codes: M51.26 - Other intervertebral disc displacement, lumbar region SNOMED: 80734170 (8) Urinary retention ICD Codes: R33.9 - Retention of urine, unspecified SNOMED: 240359009 (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) ICD Codes: D50.0 - Iron deficiency anemia secondary to blood loss (chronic) SNOMED: 08267193, 357048642 (10) Atrial fibrillation ICD Codes: I48.91 - Atrial fibrillation SNOMED: 35378330 Qualifiers: Qualified Codes: I48.2 - Chronic atrial fibrillation (11) Pneumonia ICD Codes: J18.9 - Pneumonia, unspecified organism SNOMED: 908843786 Qualifiers: Qualified Codes: J18.9 - Pneumonia, unspecified organism (12) Acute respiratory failure ICD Codes: J96.00 - Acute respiratory failure, unspecified whether with hypoxia or hypercapnia SNOMED: 50848958 Qualifiers: Qualified Codes: J96.01 - Acute respiratory failure with hypoxia Assessment/Plan HC acquired pneumoniaj, possible aspiration, continue vanco and zosyn, mrsa pneumonia, vre colonized, enterococcal uti chf, resume diuretics as hypotension resolved--hold until next lab parox afib , continue meds, replaceK high risk, daughter aware, full code icu time 40 min Subjective ROS Limited/Unobtainable: Yes Constitutional: Reports: weakness Allergies: Coded Allergies: VINCENT INHIBITORS (Verified Allergy, Mild, 08/06/17) SHELLFISH (Verified Allergy, Unknown, 07/01/11) Objective Last 24 Hour Vital Signs Date Time Temp Pulse Resp B/P (MAP) Pulse Ox O2 Delivery O2 Flow Rate FiO2 11/28/17 21:00 57 112/52 11/28/17 20:50 58 22 40 11/28/17 19:47 20 11/28/17 19:20 70 20 40 11/28/17 19:00 67 18 120/47 100 Mechanical Ventilator 28 11/28/17 18:30 69 20 114/49 100 Mechanical Ventilator 28 11/28/17 18:00 71 20 120/70 100 Mechanical Ventilator 28 11/28/17 18:00 20 11/28/17 17:45 93 84/55 11/28/17 17:30 76 20 106/37 100 Mechanical Ventilator 28 11/28/17 17:00 70 21 114/53 100 Mechanical Ventilator 28 11/28/17 17:00 20 11/28/17 16:55 65 18 40 11/28/17 16:30 98.7 66 18 98/41 100 Mechanical Ventilator 28 98.7 11/28/17 16:00 20 11/28/17 16:00 71 11/28/17 16:00 70 18 125/52 100 Mechanical Ventilator 28 11/28/17 16:00 30 11/28/17 16:00 30 11/28/17 15:30 73 18 115/43 100 Mechanical Ventilator 28 11/28/17 15:05 69 18 50 11/28/17 15:00 19 11/28/17 15:00 61 18 117/43 100 Mechanical Ventilator 28 11/28/17 14:30 71 19 116/49 100 Mechanical Ventilator 28 11/28/17 14:00 19 11/28/17 14:00 74 21 119/48 100 Mechanical Ventilator 28 11/28/17 13:30 74 21 107/51 100 Mechanical Ventilator 28 11/28/17 13:29 66 19 50 11/28/17 13:00 22 11/28/17 13:00 74 21 111/46 100 Mechanical Ventilator 28 11/28/17 12:30 79 21 116/52 100 Mechanical Ventilator 28 11/28/17 12:00 78 21 106/45 100 Mechanical Ventilator 28 11/28/17 12:00 30 11/28/17 12:00 72 11/28/17 12:00 20 11/28/17 12:00 69 104/49 11/28/17 12:00 30 11/28/17 11:30 79 21 112/51 100 Mechanical Ventilator 28 11/28/17 11:00 78 21 118/57 97 Mechanical Ventilator 28 11/28/17 11:00 20 11/28/17 10:51 69 20 50 11/28/17 10:30 76 21 128/53 97 Mechanical Ventilator 28 11/28/17 10:00 22 11/28/17 10:00 78 21 101/36 97 Mechanical Ventilator 28 11/28/17 09:30 78 21 102/34 97 Mechanical Ventilator 28 11/28/17 09:13 69 21 35 11/28/17 09:00 79 21 91/41 97 Mechanical Ventilator 28 11/28/17 09:00 18 11/28/17 09:00 74 94/49 11/28/17 08:30 77 21 100/46 97 Mechanical Ventilator 28 11/28/17 08:00 30 11/28/17 08:00 99.9 78 21 105/45 92 Mechanical Ventilator 28 99.9 11/28/17 08:00 20 11/28/17 08:00 67 11/28/17 08:00 30 11/28/17 07:30 100.1 71 21 97/42 92 Mechanical Ventilator 28 100.1 11/28/17 07:17 77 23 28 11/28/17 07:00 73 21 102/52 97 Mechanical Ventilator 28 11/28/17 07:00 18 11/28/17 06:30 77 21 109/44 97 Mechanical Ventilator 28 11/28/17 06:00 72 21 95/51 100 Mechanical Ventilator 28 11/28/17 06:00 19 11/28/17 06:00 77 98/42 11/28/17 05:30 77 20 88/50 100 Mechanical Ventilator 28 11/28/17 05:00 80 21 109/56 100 Mechanical Ventilator 28 11/28/17 05:00 23 11/28/17 05:00 76 21 30 11/28/17 04:30 77 22 94/58 100 Mechanical Ventilator 35 11/28/17 04:15 23 11/28/17 04:00 95 11/28/17 04:00 22 11/28/17 04:00 30 11/28/17 04:00 77 22 96/45 100 Mechanical Ventilator 35 11/28/17 03:50 72 21 30 11/28/17 03:30 75 22 107/44 100 Mechanical Ventilator 35 11/28/17 03:00 75 21 106/41 100 Mechanical Ventilator 35 11/28/17 03:00 20 11/28/17 02:30 74 20 96/44 100 Mechanical Ventilator 35 11/28/17 02:00 74 23 96/32 100 Mechanical Ventilator 35 11/28/17 02:00 23 11/28/17 01:30 76 23 84/42 100 Mechanical Ventilator 35 11/28/17 01:00 23 11/28/17 01:00 82 23 90/46 100 Mechanical Ventilator 35 11/28/17 00:37 75 24 30 11/28/17 00:30 80 23 105/50 100 Mechanical Ventilator 35 11/28/17 00:00 74 11/28/17 00:00 98.9 76 25 93/56 100 Mechanical Ventilator 35 98.9 11/28/17 00:00 20 11/28/17 00:00 77 93/51 11/28/17 00:00 30 11/27/17 23:30 75 25 109/56 100 Mechanical Ventilator 35 11/27/17 23:00 85 22 35 11/27/17 23:00 23 11/27/17 23:00 75 21 99/60 99 Mechanical Ventilator 35 11/27/17 22:30 75 23 80/49 99 Mechanical Ventilator 35 11/27/17 22:00 23 11/27/17 22:00 75 23 84/46 99 Mechanical Ventilator 35 Intake and Output 11/27/17 11/28/17 19:00 07:00 Intake Total 882.5 ml 794.5 ml Output Total 1370 ml 440 ml Balance -487.5 ml 354.5 ml IV Total 282.5 ml 188.5 ml Tube Feeding 500 ml 600 ml Other 100 ml 6 ml Output Urine Total 1370 ml 440 ml Laboratory Tests 11/28/17 04:10: Sodium Level 147H, Potassium Level 3.4L, Chloride Level 111H, Carbon Dioxide Level 30, Anion Gap 6, Blood Urea Nitrogen 26H, Creatinine 1.5H, Estimat Glomerular Filtration Rate , Glucose Level 133H, Calcium Level 7.4L 11/28/17 10:16: Arterial Blood pH 7.515H, Arterial Blood Partial Pressure CO2 35.9, Arterial Blood Partial Pressure O2 46.5*L, Arterial Blood HCO3 28.3H, Arterial Blood Oxygen Saturation 83.3L, Arterial Blood Base Excess 5.2, Chepe Test Positive Height (Feet): 6 Height (Inches): 0.00 Weight (Pounds): 131 General Appearance: other - sedated EENT: normal ENT inspection Neck: normal alignment Cardiovascular: regular rhythm Respiratory/Chest: rhonchi - bilaterally Abdomen: non tender, soft Edema: no edema noted Arm (L), no edema noted Arm (R), no edema noted Leg (L), no edema noted Leg (R), no edema noted Pedal (L), no edema noted Pedal (R), no edema noted Generalized Objective sedated on vent HODAN GAYTAN Nov 28, 2017 21:41
[2017-11-29] VITALS (32 sets, daily range): BP systolic 99–133; BP diastolic 36–62
--- NOTE | 2017-11-29 03:00 | Progress Note ---
DATE: 11/28/2017 CARDIOLOGY PROGRESS NOTE SUBJECTIVE: The patient remains orally intubated, mechanically ventilated, on sedation, which is being weaned. OBJECTIVE: VITAL SIGNS: Blood pressure 125/52, pulse 70, and respiratory rate 18. The patient had pacemaker interrogated yesterday. Battery life is adequate and function is appropriate. LUNGS: Bilateral breath sounds. Scattered rhonchi. HEART: Irregularly irregular rhythm. Normal S1 and S2. ABDOMEN: Soft. EXTREMITIES: No edema. LABORATORY DATA: Labs noted. IMPRESSION: 1. Respiratory failure. 2. Healthcare-acquired pneumonia. 3. Permanent pacemaker. 4. Paroxysmal atrial fibrillation. 5. Acute on chronic systolic and diastolic congestive heart failure. 6. Acute myocardial ischemia. 7. Sepsis with shock, recovering. PLAN: 1. Weaning efforts. 2. Taper off sedation. 3. Antibiotics. 4. Respiratory hygiene. 5. Maximize anti-failure regimen. 6. Nutrition by feeding tube. Chay Godinez M.D. DR: AJ JOB#: [id number] CC:
[2017-11-29] MEDS: dilTIAZem HCl 60mg tab ORAL SCH ×5 (06:00→23:56)
[2017-11-29 06:02] LABS: HEMATOCRIT 25.9 % (42.0-52.0); HEMOGLOBIN 8.3 G/DL (14.2-18.0); MEAN CORPUSCULAR VOLUME 93 FL (80-99); PLATELET COUNT 76 K/UL (150-450); RED BLOOD COUNT 2.79 M/UL (4.70-6.10); RED CELL DISTRIBUTION WIDTH 15.8 % (11.6-14.8); WHITE BLOOD COUNT 10.1 K/UL (4.8-10.8)
[2017-11-29] MEDS: Piperacillin/Tazobactam 3.375 GM in NS 110 ML IVPB SCH ×3 (06:04→21:36)
[2017-11-29 06:14] LABS: ANION GAP 7 mmol/L (5-15); BLOOD UREA NITROGEN 27 mg/dL (7-18); CALCIUM 7.6 MG/DL (8.5-10.1); CARBON DIOXIDE 29 MMOL/L (21-32); CHLORIDE 113 MMOL/L (98-107); CREATININE 1.4 MG/DL (0.55-1.30); POTASSIUM 3.3 MMOL/L (3.5-5.1); SODIUM 149 MMOL/L (136-145)
[2017-11-29] MEDS: Aspirin Baby 81mg NG SCH (08:54)
[2017-11-29] MEDS: Heparin 5000 units/ml inj SUBQ SCH ×2 (08:55→20:46)
[2017-11-29] MEDS: Metoprolol 25mg tab ORAL SCH ×2 (09:00→20:41)
[2017-11-29] MEDS: Phospha 250 Neutral tab ORAL SCH ×3 (09:09→17:57)
[2017-11-29] MEDS: Pantoprazole Inj IVP SCH (09:09)
[2017-11-29] MEDS: Magnesium Oxide 400mg tab ORAL SCH ×3 (09:09→17:57)
[2017-11-29] MEDS: Vitamin A&D Oint 2oz Tube TOPIC SCH ×2 (09:11→20:42)
--- NOTE | 2017-11-29 14:30 | General Progress Note ---
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 SNOMED: 594539341 (6) Pleural effusion ICD Codes: J90 - Pleural effusion, not elsewhere classified SNOMED: 23855276 (7) 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 ICD Codes: M51.26 - Other intervertebral disc displacement, lumbar region SNOMED: 66537197 (8) Urinary retention ICD Codes: R33.9 - Retention of urine, unspecified SNOMED: 003970167 (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) ICD Codes: D50.0 - Iron deficiency anemia secondary to blood loss (chronic) SNOMED: 66827845, 913236086 (10) Atrial fibrillation ICD Codes: I48.91 - Atrial fibrillation SNOMED: 24539331 Qualifiers: Qualified Codes: I48.2 - Chronic atrial fibrillation (11) Pneumonia ICD Codes: J18.9 - Pneumonia, unspecified organism SNOMED: 394778164 Qualifiers: Qualified Codes: J18.9 - Pneumonia, unspecified organism (12) Acute respiratory failure ICD Codes: J96.00 - Acute respiratory failure, unspecified whether with hypoxia or hypercapnia SNOMED: 50264080 Qualifiers: Qualified Codes: J96.01 - Acute respiratory failure with hypoxia Assessment/Plan HC acquired pneumoniaj, possible aspiration, continue vanco and zosyn, mrsa pneumonia, vre colonized, enterococcal uti chf, resume diuretics as hypotension resolved-lasix reorder 11/29 as + fluid bal , parox afib , continue meds, replaceK high risk, daughter aware, full code icu time 35 min Subjective ROS Limited/Unobtainable: Yes Allergies: Coded Allergies: VINCENT INHIBITORS (Verified Allergy, Mild, 08/06/17) SHELLFISH (Verified Allergy, Unknown, 07/01/11) Objective Last 24 Hour Vital Signs Date Time Temp Pulse Resp B/P (MAP) Pulse Ox O2 Delivery O2 Flow Rate FiO2 11/29/17 12:41 73 19 40 11/29/17 12:00 40 11/29/17 12:00 84 122/51 11/29/17 11:02 75 23 40 11/29/17 10:58 74 32 40 11/29/17 09:00 62 112/47 11/29/17 08:52 78 18 40 11/29/17 08:52 97 11/29/17 08:00 40 11/29/17 08:00 98.9 72 20 128/43 97 Mechanical Ventilator 40 98.9 11/29/17 07:30 73 20 126/45 97 Mechanical Ventilator 40 11/29/17 07:11 62 19 40 11/29/17 07:00 73 19 112/40 97 Mechanical Ventilator 40 11/29/17 06:30 75 18 115/51 97 Mechanical Ventilator 40 11/29/17 06:00 72 109/52 11/29/17 06:00 73 18 114/40 97 Mechanical Ventilator 40 11/29/17 05:30 74 18 109/52 97 Mechanical Ventilator 40 11/29/17 05:15 62 18 40 11/29/17 05:00 73 18 112/52 97 Mechanical Ventilator 40 11/29/17 04:30 74 18 133/43 97 Mechanical Ventilator 40 11/29/17 04:00 40 11/29/17 04:00 70 11/29/17 04:00 71 18 99/37 97 Mechanical Ventilator 40 11/29/17 03:30 68 18 105/61 97 Mechanical Ventilator 40 11/29/17 03:08 65 18 40 11/29/17 03:00 69 18 112/42 97 Mechanical Ventilator 40 11/29/17 02:30 69 18 117/48 97 Mechanical Ventilator 40 11/29/17 02:00 70 18 114/36 97 Mechanical Ventilator 40 11/29/17 01:30 70 18 107/51 97 Mechanical Ventilator 40 11/29/17 01:00 68 18 106/48 97 Mechanical Ventilator 40 11/29/17 00:58 64 18 40 11/29/17 00:30 68 18 117/38 97 Mechanical Ventilator 40 11/29/17 00:00 70 11/29/17 00:00 65 113/47 11/29/17 00:00 99.1 69 18 106/56 97 Mechanical Ventilator 40 99.1 11/29/17 00:00 40 11/28/17 23:30 67 18 113/47 97 Mechanical Ventilator 40 11/28/17 23:00 68 18 115/39 97 Mechanical Ventilator 40 11/28/17 22:52 61 18 40 11/28/17 22:30 68 18 111/42 97 Mechanical Ventilator 40 11/28/17 22:00 70 18 119/52 97 Mechanical Ventilator 40 11/28/17 21:30 70 18 93/37 97 Mechanical Ventilator 40 11/28/17 21:00 57 112/52 11/28/17 21:00 68 18 117/46 97 Mechanical Ventilator 40 11/28/17 20:50 58 22 40 11/28/17 20:30 68 18 119/58 100 Mechanical Ventilator 40 11/28/17 20:00 66 18 102/53 100 Mechanical Ventilator 40 11/28/17 20:00 62 11/28/17 20:00 45 11/28/17 19:47 20 11/28/17 19:30 99.3 67 18 120/47 100 Mechanical Ventilator 40 99.3 11/28/17 19:20 70 20 40 11/28/17 19:00 67 18 120/47 100 Mechanical Ventilator 28 11/28/17 18:30 69 20 114/49 100 Mechanical Ventilator 28 11/28/17 18:00 71 20 120/70 100 Mechanical Ventilator 28 11/28/17 18:00 20 11/28/17 17:45 93 84/55 11/28/17 17:30 76 20 106/37 100 Mechanical Ventilator 28 11/28/17 17:00 70 21 114/53 100 Mechanical Ventilator 28 11/28/17 17:00 20 11/28/17 16:55 65 18 40 11/28/17 16:30 98.7 66 18 98/41 100 Mechanical Ventilator 28 98.7 11/28/17 16:00 20 11/28/17 16:00 71 11/28/17 16:00 70 18 125/52 100 Mechanical Ventilator 28 11/28/17 16:00 30 11/28/17 16:00 30 11/28/17 15:30 73 18 115/43 100 Mechanical Ventilator 28 3/15/18 15:05 69 18 50 11/28/17 15:00 19 11/28/17 15:00 61 18 117/43 100 Mechanical Ventilator 28 11/28/17 14:30 71 19 116/49 100 Mechanical Ventilator 28 Intake and Output 11/28/17 11/29/17 19:00 07:00 Intake Total 725.87 ml 1040.0 ml Output Total 475 ml 390 ml Balance 250.87 ml 650.0 ml IV Total 175.87 ml 390.0 ml Tube Feeding 550 ml 600 ml Other 50 ml Output Urine Total 475 ml 390 ml # Bowel Movements 2 3 Laboratory Tests 11/29/17 05:00: White Blood Count 10.1, Red Blood Count 2.79L, Hemoglobin 8.3L, Hematocrit 25.9L , Mean Corpuscular Volume 93, Mean Corpuscular Hemoglobin 29.9, Mean Corpuscular Hemoglobin Concent 32.2, Red Cell Distribution Width 15.8H, Platelet Count 76L, Mean Platelet Volume 9.5, Neutrophils (%) (Auto) , Lymphocytes (%) (Auto) , Monocytes (%) (Auto) , Eosinophils (%) (Auto) , Basophils (%) (Auto) , Differential Total Cells Counted 100, Neutrophils % ( Manual) 86H, Lymphocytes % (Manual) 7L, Monocytes % (Manual) 5, Eosinophils % ( Manual) 1, Basophils % (Manual) 1, Band Neutrophils 0, Platelet Estimate DecreasedL, Platelet Morphology Normal, Hypochromasia 1+, Anisocytosis 1+, Sodium Level 149H, Potassium Level 3.3L, Chloride Level 113H, Carbon Dioxide Level 29, Anion Gap 7, Blood Urea Nitrogen 27H, Creatinine 1.4H, Estimat Glomerular Filtration Rate , Glucose Level 140H, Calcium Level 7.6L Height (Feet): 6 Height (Inches): 0.00 Weight (Pounds): 130 General Appearance: no apparent distress, lethargic EENT: normal ENT inspection Neck: normal alignment, supple Cardiovascular: normal rate Respiratory/Chest: lungs clear, decreased breath sounds Abdomen: non tender Edema: 2+ Arm (L), 1+ Arm (R), no edema noted Leg (R), no edema noted Pedal (L) , no edema noted Pedal (R) 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
[2017-11-29] MEDS: Spironolactone 25mg tab ORAL SCH (15:55)
--- NOTE | 2017-11-29 17:21 | Pulmonology Progress Note ---
Assessment/Plan Assessment/Plan 1. Pneumonia, healthcare acquired due to s aureus 2. Pleural effusions. 3. Chronic systolic congestive heart failure. 4. Hypotension, due to septic shock, improved. 5. Elevation of troponin, possible acute coronary syndrome. 6. History of CVA with dysarthria and dysphagia. 7. Respiratory failure acute on chronic. 8. Septic shock. 9. Indwelling Reyes 10. GT cont vanco, Zosyn not tolerating weaning so far off Versed but still lethargic disc w RN Subjective ROS Limited/Unobtainable: Yes Allergies: Coded Allergies: VINCENT INHIBITORS (Verified Allergy, Mild, 08/06/17) SHELLFISH (Verified Allergy, Unknown, 07/01/11) Objective Last 24 Hour Vital Signs Date Time Temp Pulse Resp B/P (MAP) Pulse Ox O2 Delivery O2 Flow Rate FiO2 11/29/17 17:00 86 23 132/62 98 Mechanical Ventilator 40 11/29/17 16:58 82 21 40 11/29/17 16:00 40 11/29/17 16:00 98.0 71 30 114/49 98 Mechanical Ventilator 40 98.0 11/29/17 15:00 73 23 125/51 98 Mechanical Ventilator 40 11/29/17 14:31 68 24 40 11/29/17 14:00 72 25 102/56 94 Mechanical Ventilator 40 11/29/17 13:00 71 20 125/41 90 Mechanical Ventilator 40 11/29/17 12:41 73 19 40 11/29/17 12:00 98.2 69 20 110/55 91 Mechanical Ventilator 40 98.2 11/29/17 12:00 40 11/29/17 12:00 84 122/51 11/29/17 12:00 69 11/29/17 11:02 75 23 40 11/29/17 11:00 73 21 119/50 97 Mechanical Ventilator 40 11/29/17 10:58 74 32 40 11/29/17 10:00 73 21 119/50 97 Mechanical Ventilator 40 11/29/17 09:00 70 19 132/51 92 Mechanical Ventilator 40 11/29/17 09:00 62 112/47 11/29/17 08:52 78 18 40 11/29/17 08:52 97 11/29/17 08:00 40 11/29/17 08:00 72 11/29/17 08:00 98.9 72 20 128/43 97 Mechanical Ventilator 40 98.9 11/29/17 07:30 73 20 126/45 97 Mechanical Ventilator 40 11/29/17 07:11 62 19 40 11/29/17 07:00 73 19 112/40 97 Mechanical Ventilator 40 11/29/17 06:30 75 18 115/51 97 Mechanical Ventilator 40 11/29/17 06:00 72 109/52 11/29/17 06:00 73 18 114/40 97 Mechanical Ventilator 40 11/29/17 05:30 74 18 109/52 97 Mechanical Ventilator 40 11/29/17 05:15 62 18 40 11/29/17 05:00 73 18 112/52 97 Mechanical Ventilator 40 11/29/17 04:30 74 18 133/43 97 Mechanical Ventilator 40 11/29/17 04:00 40 11/29/17 04:00 70 11/29/17 04:00 71 18 99/37 97 Mechanical Ventilator 40 11/29/17 03:30 68 18 105/61 97 Mechanical Ventilator 40 11/29/17 03:08 65 18 40 11/29/17 03:00 69 18 112/42 97 Mechanical Ventilator 40 11/29/17 02:30 69 18 117/48 97 Mechanical Ventilator 40 11/29/17 02:00 70 18 114/36 97 Mechanical Ventilator 40 11/29/17 01:30 70 18 107/51 97 Mechanical Ventilator 40 11/29/17 01:00 68 18 106/48 97 Mechanical Ventilator 40 11/29/17 00:58 64 18 40 11/29/17 00:30 68 18 117/38 97 Mechanical Ventilator 40 11/29/17 00:00 70 11/29/17 00:00 65 113/47 11/29/17 00:00 99.1 69 18 106/56 97 Mechanical Ventilator 40 99.1 11/29/17 00:00 40 11/28/17 23:30 67 18 113/47 97 Mechanical Ventilator 40 11/28/17 23:00 68 18 115/39 97 Mechanical Ventilator 40 11/28/17 22:52 61 18 40 11/28/17 22:30 68 18 111/42 97 Mechanical Ventilator 40 11/28/17 22:00 70 18 119/52 97 Mechanical Ventilator 40 11/28/17 21:30 70 18 93/37 97 Mechanical Ventilator 40 11/28/17 21:00 57 112/52 11/28/17 21:00 68 18 117/46 97 Mechanical Ventilator 40 11/28/17 20:50 58 22 40 11/28/17 20:30 68 18 119/58 100 Mechanical Ventilator 40 11/28/17 20:00 66 18 102/53 100 Mechanical Ventilator 40 11/28/17 20:00 62 11/28/17 20:00 45 11/28/17 19:47 20 11/28/17 19:30 99.3 67 18 120/47 100 Mechanical Ventilator 40 99.3 11/28/17 19:20 70 20 40 11/28/17 19:00 67 18 120/47 100 Mechanical Ventilator 28 11/28/17 18:30 69 20 114/49 100 Mechanical Ventilator 28 11/28/17 18:00 71 20 120/70 100 Mechanical Ventilator 28 11/28/17 18:00 20 11/28/17 17:45 93 84/55 11/28/17 17:30 76 20 106/37 100 Mechanical Ventilator 28 Intake and Output 11/28/17 11/29/17 19:00 07:00 Intake Total 725.87 ml 1040.0 ml Output Total 475 ml 390 ml Balance 250.87 ml 650.0 ml IV Total 175.87 ml 390.0 ml Tube Feeding 550 ml 600 ml Other 50 ml Output Urine Total 475 ml 390 ml # Bowel Movements 2 3 General Appearance: no acute distress HEENT: atraumatic Respiratory/Chest: decreased breath sounds Cardiovascular: normal rate Laboratory Tests 11/29/17 05:00: White Blood Count 10.1, Red Blood Count 2.79L, Hemoglobin 8.3L, Hematocrit 25.9L , Mean Corpuscular Volume 93, Mean Corpuscular Hemoglobin 29.9, Mean Corpuscular Hemoglobin Concent 32.2, Red Cell Distribution Width 15.8H, Platelet Count 76L, Mean Platelet Volume 9.5, Neutrophils (%) (Auto) , Lymphocytes (%) (Auto) , Monocytes (%) (Auto) , Eosinophils (%) (Auto) , Basophils (%) (Auto) , Differential Total Cells Counted 100, Neutrophils % ( Manual) 86H, Lymphocytes % (Manual) 7L, Monocytes % (Manual) 5, Eosinophils % ( Manual) 1, Basophils % (Manual) 1, Band Neutrophils 0, Platelet Estimate DecreasedL, Platelet Morphology Normal, Hypochromasia 1+, Anisocytosis 1+, Sodium Level 149H, Potassium Level 3.3L, Chloride Level 113H, Carbon Dioxide Level 29, Anion Gap 7, Blood Urea Nitrogen 27H, Creatinine 1.4H, Estimat Glomerular Filtration Rate , Glucose Level 140H, Calcium Level 7.6L Current Medications Medications (Trade) Dose Ordered Sig/Scot Route PRN Reason Start Time Stop Time Status Last Admin Dose Admin Aspirin (ASA) 81 mg DAILY NG 11/26/17 09:00 12/26/17 08:59 11/28/17 09:56 Diltiazem HCl (Cardizem) 60 mg EVERY 6 HOURS ORAL 11/25/17 18:00 12/25/17 17:59 Heparin Sodium (Porcine) (Heparin 5000 units/ml) 5,000 units EVERY 12 HOURS SUBQ 11/25/17 21:00 12/25/17 20:59 11/25/17 20:21 Magnesium Oxide (Mag-Ox 400mg) 400 mg THREE TIMES A DAY ORAL 11/26/17 18:00 12/26/17 17:59 11/29/17 13:40 Metoprolol Tartrate (Lopressor) 25 mg Q12HR ORAL 11/25/17 21:00 12/25/17 20:59 11/27/17 21:14 Pantoprazole (Protonix) 40 mg DAILY IVP 11/26/17 10:15 12/26/17 10:14 11/29/17 09:09 Phosphorus (Phospha 250 Neutral) 250 mg THREE TIMES A DAY ORAL 11/26/17 13:55 12/26/17 13:54 11/29/17 13:40 Piperacillin Sod/ Tazobactam Sod 3.375 gm/Sodium Chloride 110 ml @ 27.5 mls/hr EVERY 8 HOURS IVPB 11/25/17 22:00 11/30/17 21:59 11/29/17 13:40 Potassium Chloride (K-Dur) 40 meq BID ORAL 11/29/17 18:00 12/26/17 13:59 Spironolactone (Aldactone) 25 mg DAILY ORAL 11/29/17 15:00 12/29/17 14:59 11/29/17 15:55 Vancomycin HCl (Vanco rx to dose) 1 ea DAILY PRN MISC Per rx protocol 11/25/17 17:30 12/25/17 17:29 Vancomycin HCl/ Dextrose 250 ml @ 166.667 mls/hr Q24H IVPB 11/26/17 20:00 12/01/17 19:59 11/28/17 19:56 Vitamin A/Vitamin D (A & D Oint) 1 applic EVERY 12 HOURS TOPIC 11/28/17 21:00 12/28/17 20:59 11/29/17 09:11 Liban Hammer MD Nov 29, 2017 17:21
[2017-11-29] MEDS: Vancomycin 1250mg/D5W 250ml IVPB SCH (20:03)
[2017-11-30] VITALS (24 sets, daily range): BP systolic 94–128; BP diastolic 34–57
--- NOTE | 2017-11-30 04:45 | Progress Note ---
DATE: 11/29/2017 CARDIOLOGY PROGRESS NOTE SUBJECTIVE: The patient remains on ventilator support. Weaning trial today was poorly tolerated. The patient developed tachypnea and tachycardia. Monitored rhythm is atrial fibrillation with ventricular pacing. PHYSICAL EXAMINATION: VITAL SIGNS: Blood pressure 132/62, pulse 86 and respiratory rate 23. NECK: Jugular venous pressure is slightly elevated. LUNGS: With diminished breath sounds and scattered rales. CARDIAC: Irregularly irregular rhythm. Normal S1, paradoxically split S2 with a 1/6 systolic murmur at apex. ABDOMEN: Soft and nontender. EXTREMITIES: With trace edema. LABORATORY AND DIAGNOSTIC DATA: The echocardiogram yesterday revealed ejection fraction of about 50% with mild degenerative valve disease. Pacemaker interrogation on 11/27/2017 revealed adequate battery life and appropriate function. IMPRESSION: 1. Healthcare-acquired pneumonia. 2. Shock. 3. Sepsis. 4. Acute on chronic diastolic and systolic congestive heart failure. 5. Shock recovered. 6. Acute myocardial ischemia. 7. Permanent pacemaker. 8. Paroxysmal atrial fibrillation. PLAN: 1. Continue weaning efforts. 2. Antimicrobials. 3. Respiratory hygiene. 4. Diuresis. 5. Optimizing cardiopulmonary parameters. 6. Remains critical and guarded. Chay Godinez M.D. DR: NELSY JOB#: [id number] CC:
[2017-11-30] MEDS: dilTIAZem HCl 60mg tab ORAL SCH ×3 (05:48→18:00)
[2017-11-30] MEDS: Piperacillin/Tazobactam 3.375 GM in NS 110 ML IVPB SCH ×3 (05:48→22:11)
[2017-11-30 06:15] LABS: HEMATOCRIT 27.8 % (42.0-52.0); HEMOGLOBIN 8.8 G/DL (14.2-18.0); MEAN CORPUSCULAR VOLUME 94 FL (80-99); PLATELET COUNT 71 K/UL (150-450); RED BLOOD COUNT 2.96 M/UL (4.70-6.10); RED CELL DISTRIBUTION WIDTH 16.5 % (11.6-14.8); WHITE BLOOD COUNT 9.1 K/UL (4.8-10.8)
[2017-11-30 06:28] LABS: ANION GAP 8 mmol/L (5-15); BLOOD UREA NITROGEN 26 mg/dL (7-18); CALCIUM 7.9 MG/DL (8.5-10.1); CARBON DIOXIDE 29 MMOL/L (21-32); CHLORIDE 113 MMOL/L (98-107); CREATININE 1.4 MG/DL (0.55-1.30); POTASSIUM 4.2 MMOL/L (3.5-5.1); SODIUM 150 MMOL/L (136-145)
--- NOTE | 2017-11-30 07:28 | Pulmonolgy Critical Care Note ---
Critical Care - Asmt/Plan Assessment/Plan: 1. Pneumonia, healthcare acquired due to s aureus 2. Pleural effusions. 3. Chronic systolic congestive heart failure. 4. Hypotension, due to septic shock, improved. 5. Elevation of troponin, possible acute coronary syndrome. 6. History of CVA with dysarthria and dysphagia. 7. Respiratory failure acute on chronic. 8. Septic shock. 9. Indwelling Reyes 10. GT weanign as toelrated nebs and suction tf abx wound care negative io trend troponins check labs continue ICU Respiratory: adjust tidal volume, CXR, weaning trial Cardiac: continue to monitor HR/BP Infectious Disease: check cultures, continue antibiotics Gastrointestinal: continue feedings/current rate Neurologic: PRN Ativan Prophylaxis: Protonix, Heparin Time Spent (Minutes): 40 Notes Reviewed: radio announcer Discussed with: nurses, consultants Critical Care - Objective Last 24 Hour Vital Signs Date Time Temp Pulse Resp B/P (MAP) Pulse Ox O2 Delivery O2 Flow Rate FiO2 11/30/17 07:10 73 26 40 11/30/17 06:00 74 23 119/49 100 Mechanical Ventilator 40 11/30/17 05:48 85 116/48 11/30/17 05:00 81 21 116/48 100 Mechanical Ventilator 40 11/30/17 05:00 72 23 40 11/30/17 04:00 40 11/30/17 04:00 98.8 73 21 128/55 98 Mechanical Ventilator 40 98.8 11/30/17 04:00 73 11/30/17 03:03 69 25 40 11/30/17 03:00 74 22 118/49 98 Mechanical Ventilator 40 11/30/17 02:00 77 24 126/48 100 Mechanical Ventilator 40 11/30/17 01:00 71 19 127/51 98 Mechanical Ventilator 40 11/30/17 00:53 72 21 40 11/30/17 00:00 40 11/30/17 00:00 77 11/30/17 00:00 98.7 77 22 114/52 100 Mechanical Ventilator 40 98.7 11/29/17 23:56 78 116/51 11/29/17 23:00 78 18 40 11/29/17 23:00 79 22 116/51 100 Mechanical Ventilator 40 11/29/17 22:00 78 21 107/37 100 Mechanical Ventilator 40 11/29/17 21:09 73 25 40 11/29/17 21:00 79 20 122/46 98 Mechanical Ventilator 40 11/29/17 20:41 78 130/45 11/29/17 20:00 40 11/29/17 20:00 98.3 77 21 130/51 99 Mechanical Ventilator 40 98.3 11/29/17 20:00 77 11/29/17 19:00 89 23 122/52 98 Mechanical Ventilator 40 11/29/17 18:54 88 21 40 11/29/17 18:00 87 26 117/40 98 Mechanical Ventilator 40 11/29/17 17:50 70 117/45 11/29/17 17:00 86 23 132/62 98 Mechanical Ventilator 40 11/29/17 16:58 82 21 40 11/29/17 16:00 40 11/29/17 16:00 98.0 71 30 114/49 98 Mechanical Ventilator 40 98.0 11/29/17 16:00 72 11/29/17 15:00 73 23 125/51 98 Mechanical Ventilator 40 11/29/17 14:31 68 24 40 11/29/17 14:00 72 25 102/56 94 Mechanical Ventilator 40 11/29/17 13:00 71 20 125/41 90 Mechanical Ventilator 40 11/29/17 12:41 73 19 40 11/29/17 12:00 98.2 69 20 110/55 91 Mechanical Ventilator 40 98.2 11/29/17 12:00 40 11/29/17 12:00 84 122/51 11/29/17 12:00 69 11/29/17 11:02 75 23 40 11/29/17 11:00 73 21 119/50 97 Mechanical Ventilator 40 11/29/17 10:58 74 32 40 11/29/17 10:00 73 21 119/50 97 Mechanical Ventilator 40 11/29/17 09:00 70 19 132/51 92 Mechanical Ventilator 40 11/29/17 09:00 62 112/47 11/29/17 08:52 78 18 40 11/29/17 08:52 97 11/29/17 08:00 40 11/29/17 08:00 72 11/29/17 08:00 98.9 72 20 128/43 97 Mechanical Ventilator 40 98.9 11/29/17 07:30 73 20 126/45 97 Mechanical Ventilator 40 Status: awake Lungs: rhonchi Heart: HR/BP stable Abdomen: soft, non-tender, feeding tube Decubiti: location Critical Care - Subjective ROS Limited/Unobtainable: Yes Condition: critical FI02: 40 Vent Support Breath Rate: 18 Vent Support Mode: AC Vent Tidal Volume: 600 Sputum Amount: Moderate PEEP: 5.0 PIP: 33 Tube Feeding Amount: 50 I&O: Intake and Output 11/29/17 11/30/17 19:00 07:00 Intake Total 942.5 ml 1317.5 ml Output Total 980 ml 740 ml Balance -37.5 ml 577.5 ml Intake Free Water 130 ml IV Total 192.5 ml 637.5 ml Tube Feeding 600 ml 550 ml Other 150 ml Output Urine Total 980 ml 740 ml # Bowel Movements 1 Subjective: awake weaned 2 hours yesterday remaisn on the vent no bleeding positive uop ET-Tube: 7.5 ET Position: 23 Labs: Current Medications Medications (Trade) Dose Ordered Sig/Scot Route PRN Reason Start Time Stop Time Status Last Admin Dose Admin Aspirin (ASA) 81 mg DAILY NG 11/26/17 09:00 12/26/17 08:59 11/28/17 09:56 Diltiazem HCl (Cardizem) 60 mg EVERY 6 HOURS ORAL 11/25/17 18:00 12/25/17 17:59 11/30/17 05:48 Heparin Sodium (Porcine) (Heparin 5000 units/ml) 5,000 units EVERY 12 HOURS SUBQ 11/25/17 21:00 12/25/17 20:59 11/29/17 20:46 Magnesium Oxide (Mag-Ox 400mg) 400 mg THREE TIMES A DAY ORAL 11/26/17 18:00 12/26/17 17:59 11/29/17 17:57 Metoprolol Tartrate (Lopressor) 25 mg Q12HR ORAL 11/25/17 21:00 12/25/17 20:59 11/29/17 20:41 Pantoprazole (Protonix) 40 mg DAILY IVP 11/26/17 10:15 12/26/17 10:14 11/29/17 09:09 Phosphorus (Phospha 250 Neutral) 250 mg THREE TIMES A DAY ORAL 11/26/17 13:55 12/26/17 13:54 11/29/17 17:57 Piperacillin Sod/ Tazobactam Sod 3.375 gm/Sodium Chloride 110 ml @ 27.5 mls/hr EVERY 8 HOURS IVPB 11/25/17 22:00 11/30/17 21:59 11/30/17 05:48 Potassium Chloride (K-Dur) 40 meq BID ORAL 11/29/17 18:00 12/26/17 13:59 11/29/17 17:57 Spironolactone (Aldactone) 25 mg DAILY ORAL 11/29/17 15:00 12/29/17 14:59 11/29/17 15:55 Vancomycin HCl (Vanco rx to dose) 1 ea DAILY PRN MISC Per rx protocol 11/25/17 17:30 12/25/17 17:29 Vancomycin HCl/ Dextrose 250 ml @ 166.667 mls/hr Q24H IVPB 11/26/17 20:00 12/01/17 19:59 11/29/17 20:03 Vitamin A/Vitamin D (A & D Oint) 1 applic EVERY 12 HOURS TOPIC 11/28/17 21:00 12/28/17 20:59 11/29/17 20:42 Laboratory Tests Test 11/30/17 04:50 White Blood Count 9.1 K/UL (4.8-10.8) Red Blood Count 2.96 M/UL (4.70-6.10) L Hemoglobin 8.8 G/DL (14.2-18.0) L Hematocrit 27.8 % (42.0-52.0) L Mean Corpuscular Volume 94 FL (80-99) Mean Corpuscular Hemoglobin 29.6 PG (27.0-31.0) Mean Corpuscular Hemoglobin Concent 31.5 G/DL (32.0-36.0) L Red Cell Distribution Width 16.5 % (11.6-14.8) H Platelet Count 71 K/UL (150-450) L Mean Platelet Volume 10.2 FL (6.5-10.1) H Neutrophils (%) (Auto) % (45.0-75.0) Lymphocytes (%) (Auto) % (20.0-45.0) Monocytes (%) (Auto) % (1.0-10.0) Eosinophils (%) (Auto) % (0.0-3.0) Basophils (%) (Auto) % (0.0-2.0) Neutrophils % (Manual) Pending Lymphocytes % (Manual) Pending Platelet Estimate Pending Platelet Morphology Pending Sodium Level 150 MMOL/L (136-145) H Potassium Level 4.2 MMOL/L (3.5-5.1) Chloride Level 113 MMOL/L (98-107) H Carbon Dioxide Level 29 MMOL/L (21-32) Anion Gap 8 mmol/L (5-15) Blood Urea Nitrogen 26 mg/dL (7-18) H Creatinine 1.4 MG/DL (0.55-1.30) H Estimat Glomerular Filtration Rate mL/min (>60) Glucose Level 92 MG/DL (74-106) Calcium Level 7.9 MG/DL (8.5-10.1) PIERRE HAMM DO Nov 30, 2017 07:28
[2017-11-30] MEDS: Aspirin Baby 81mg NG SCH (09:00)
[2017-11-30] MEDS: Heparin 5000 units/ml inj SUBQ SCH ×2 (09:00→21:00)
[2017-11-30] MEDS: Magnesium Oxide 400mg tab ORAL SCH ×3 (09:01→18:13)
[2017-11-30] MEDS: Spironolactone 25mg tab ORAL SCH (09:01)
[2017-11-30] MEDS: Phospha 250 Neutral tab ORAL SCH ×3 (09:01→18:13)
[2017-11-30] MEDS: Metoprolol 25mg tab ORAL SCH ×2 (09:01→21:13)
[2017-11-30] MEDS: Pantoprazole Inj IVP SCH (09:01)
[2017-11-30] MEDS: Vitamin A&D Oint 2oz Tube TOPIC SCH ×2 (09:02→21:13)
[2017-11-30] MEDS ORDERED: Sterile Water For Irrig 2000ml IRRIG ONE (11:19)
[2017-11-30] MEDS ORDERED: NS 275ml ONE (11:19)
--- NOTE | 2017-11-30 12:51 | General Progress Note ---
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 SNOMED: 787926576 (6) Pleural effusion ICD Codes: J90 - Pleural effusion, not elsewhere classified SNOMED: 28653644 (7) 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 ICD Codes: M51.26 - Other intervertebral disc displacement, lumbar region SNOMED: 61054445 (8) Urinary retention ICD Codes: R33.9 - Retention of urine, unspecified SNOMED: 313359555 (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) ICD Codes: D50.0 - Iron deficiency anemia secondary to blood loss (chronic) SNOMED: 91663556, 640561851 (10) Atrial fibrillation ICD Codes: I48.91 - Atrial fibrillation SNOMED: 24493409 Qualifiers: Qualified Codes: I48.2 - Chronic atrial fibrillation (11) Pneumonia ICD Codes: J18.9 - Pneumonia, unspecified organism SNOMED: 643440849 Qualifiers: Qualified Codes: J18.9 - Pneumonia, unspecified organism (12) Acute respiratory failure ICD Codes: J96.00 - Acute respiratory failure, unspecified whether with hypoxia or hypercapnia SNOMED: 72439079 Qualifiers: Qualified Codes: J96.01 - Acute respiratory failure with hypoxia (13) Hypernatremia ICD Codes: E87.0 - Hyperosmolality and hypernatremia SNOMED: 74916470 Assessment/Plan HC acquired pneumonia, possible aspiration, continue vanco and zosyn, mrsa pneumonia, vre colonized, enterococcal uti chf, resume diuretics as hypotension resolved-lasix reorder 11/29 as + fluid bal , parox afib , continue meds, replaceK hypernatremia give free water high risk, daughter aware, full code icu time 40 min Subjective ROS Limited/Unobtainable: Yes Allergies: Coded Allergies: VINCENT INHIBITORS (Verified Allergy, Mild, 08/06/17) SHELLFISH (Verified Allergy, Unknown, 07/01/11) Subjective alert weak Objective Last 24 Hour Vital Signs Date Time Temp Pulse Resp B/P (MAP) Pulse Ox O2 Delivery O2 Flow Rate FiO2 11/30/17 12:00 98.8 71 21 108/35 93 Mechanical Ventilator 98.8 11/30/17 12:00 66 95/34 11/30/17 12:00 40 11/30/17 11:11 66 21 40 11/30/17 11:00 69 20 95/34 95 Mechanical Ventilator 11/30/17 10:00 61 23 108/42 100 Mechanical Ventilator 11/30/17 09:11 96 11/30/17 09:10 82 27 40 11/30/17 09:01 74 114/46 11/30/17 09:00 78 20 105/48 100 Mechanical Ventilator 11/30/17 08:00 80 22 102/52 99 Mechanical Ventilator 11/30/17 08:00 40 11/30/17 08:00 98.9 98.9 11/30/17 07:27 85 11/30/17 07:10 73 26 40 11/30/17 07:00 83 23 119/48 100 Mechanical Ventilator 40 11/30/17 06:00 74 23 119/49 100 Mechanical Ventilator 40 11/30/17 05:48 85 116/48 11/30/17 05:00 81 21 116/48 100 Mechanical Ventilator 40 11/30/17 05:00 72 23 40 11/30/17 04:00 40 11/30/17 04:00 98.8 73 21 128/55 98 Mechanical Ventilator 40 98.8 11/30/17 04:00 73 11/30/17 03:03 69 25 40 11/30/17 03:00 74 22 118/49 98 Mechanical Ventilator 40 11/30/17 02:00 77 24 126/48 100 Mechanical Ventilator 40 11/30/17 01:00 71 19 127/51 98 Mechanical Ventilator 40 11/30/17 00:53 72 21 40 11/30/17 00:00 40 11/30/17 00:00 77 11/30/17 00:00 98.7 77 22 114/52 100 Mechanical Ventilator 40 98.7 11/29/17 23:56 78 116/51 11/29/17 23:00 78 18 40 11/29/17 23:00 79 22 116/51 100 Mechanical Ventilator 40 11/29/17 22:00 78 21 107/37 100 Mechanical Ventilator 40 11/29/17 21:09 73 25 40 11/29/17 21:00 79 20 122/46 98 Mechanical Ventilator 40 11/29/17 20:41 78 130/45 11/29/17 20:00 40 11/29/17 20:00 98.3 77 21 130/51 99 Mechanical Ventilator 40 98.3 11/29/17 20:00 77 11/29/17 19:00 89 23 122/52 98 Mechanical Ventilator 40 11/29/17 18:54 88 21 40 11/29/17 18:00 87 26 117/40 98 Mechanical Ventilator 40 11/29/17 17:50 70 117/45 11/29/17 17:00 86 23 132/62 98 Mechanical Ventilator 40 11/29/17 16:58 82 21 40 11/29/17 16:00 40 11/29/17 16:00 98.0 71 30 114/49 98 Mechanical Ventilator 40 98.0 11/29/17 16:00 72 11/29/17 15:00 73 23 125/51 98 Mechanical Ventilator 40 11/29/17 14:31 68 24 40 11/29/17 14:00 72 25 102/56 94 Mechanical Ventilator 40 11/29/17 13:00 71 20 125/41 90 Mechanical Ventilator 40 Intake and Output 11/29/17 11/30/17 19:00 07:00 Intake Total 942.5 ml 1395.0 ml Output Total 980 ml 770 ml Balance -37.5 ml 625.0 ml Intake Free Water 130 ml IV Total 192.5 ml 665.0 ml Tube Feeding 600 ml 600 ml Other 150 ml Output Urine Total 980 ml 770 ml # Bowel Movements 1 Laboratory Tests 11/30/17 04:50: White Blood Count 9.1, Red Blood Count 2.96L, Hemoglobin 8.8L, Hematocrit 27.8L , Mean Corpuscular Volume 94, Mean Corpuscular Hemoglobin 29.6, Mean Corpuscular Hemoglobin Concent 31.5L, Red Cell Distribution Width 16.5H, Platelet Count 71L, Mean Platelet Volume 10.2H, Neutrophils (%) (Auto) , Lymphocytes (%) (Auto) , Monocytes (%) (Auto) , Eosinophils (%) (Auto) , Basophils (%) (Auto) , Differential Total Cells Counted 100, Neutrophils % ( Manual) 85H, Lymphocytes % (Manual) 13L, Monocytes % (Manual) 2, Eosinophils % ( Manual) 0, Basophils % (Manual) 0, Band Neutrophils 0, Platelet Estimate DecreasedL, Platelet Morphology Normal, Hypochromasia 1+, Anisocytosis 1+, Sodium Level 150H, Potassium Level 4.2, Chloride Level 113H, Carbon Dioxide Level 29, Anion Gap 8, Blood Urea Nitrogen 26H, Creatinine 1.4H, Estimat Glomerular Filtration Rate , Glucose Level 92, Calcium Level 7.9L Height (Feet): 6 Height (Inches): 0.00 Weight (Pounds): 131 General Appearance: no apparent distress, other - intubated EENT: PERRL/EOMI Neck: normal alignment Cardiovascular: regular rhythm Respiratory/Chest: rhonchi - bilaterally Abdomen: non tender, soft Edema: 1+ Arm (L), 1+ Arm (R), no edema noted Leg (L), no edema noted Leg (R), no edema noted Pedal (L), no edema noted Pedal (R), no edema noted Generalized Neurologic: orthopedic dentist II-XII grossly normal Objective sedated on vent HODAN GAYTAN Nov 30, 2017 12:51
[2017-11-30] MEDS: Vancomycin 1250mg/D5W 250ml IVPB SCH (20:16)
[2017-11-30] MEDS: Midazolam/D5W 100ml 100 ML IVPB PRN (23:40)
[2017-12-01] VITALS (35 sets, daily range): BP systolic 93–137; BP diastolic 34–75
[2017-12-01 04:39] LABS: ANION GAP 5 mmol/L (5-15); BLOOD UREA NITROGEN 25 mg/dL (7-18); CALCIUM 7.7 MG/DL (8.5-10.1); CARBON DIOXIDE 30 MMOL/L (21-32); CHLORIDE 117 MMOL/L (98-107); CREATININE 1.3 MG/DL (0.55-1.30); POTASSIUM 3.9 MMOL/L (3.5-5.1); SODIUM 152 MMOL/L (136-145)
[2017-12-01] MEDS: dilTIAZem HCl 60mg tab ORAL SCH ×5 (05:47→23:33)
[2017-12-01] MEDS: Piperacillin/Tazobactam 3.375 GM in NS 110 ML IVPB SCH ×3 (06:10→21:35)
--- NOTE | 2017-12-01 06:35 | Pulmonolgy Critical Care Note ---
Critical Care - Asmt/Plan Assessment/Plan: 1. Pneumonia, healthcare acquired due to s aureus 2. Pleural effusions. 3. Chronic systolic congestive heart failure. 4. Hypotension, due to septic shock, improved. 5. Elevation of troponin, possible acute coronary syndrome. 6. History of CVA with dysarthria and dysphagia. 7. Respiratory failure acute on chronic. 8. Septic shock. 9. Indwelling Reyes 10. 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 Discussed with: nurses Critical Care - Objective Last 24 Hour Vital Signs Date Time Temp Pulse Resp B/P (MAP) Pulse Ox O2 Delivery O2 Flow Rate FiO2 12/01/17 06:30 63 19 111/49 100 Mechanical Ventilator 40 12/01/17 06:00 71 19 111/49 100 Mechanical Ventilator 40 12/01/17 06:00 21 12/01/17 05:47 66 114/39 12/01/17 05:34 67 18 40 12/01/17 05:30 68 19 114/39 100 Mechanical Ventilator 40 12/01/17 05:00 71 19 93/42 95 Mechanical Ventilator 40 12/01/17 05:00 20 12/01/17 04:30 71 19 107/51 100 Mechanical Ventilator 40 12/01/17 04:00 40 12/01/17 04:00 70 19 113/42 100 Mechanical Ventilator 40 12/01/17 04:00 23 12/01/17 04:00 69 12/01/17 03:30 72 19 105/51 100 Mechanical Ventilator 40 12/01/17 03:00 70 20 111/42 100 Mechanical Ventilator 40 12/01/17 03:00 22 12/01/17 02:38 55 20 40 12/01/17 02:30 71 20 101/44 100 Mechanical Ventilator 40 12/01/17 02:00 22 12/01/17 02:00 68 20 101/44 100 Mechanical Ventilator 40 12/01/17 01:30 73 20 106/40 100 Mechanical Ventilator 40 12/01/17 01:00 21 12/01/17 01:00 73 21 105/50 100 Mechanical Ventilator 40 3/18/18 00:34 73 21 40 318/18 00:00 99.1 81 22 124/50 100 Mechanical Ventilator 40 99.1 18/18 00:00 21 18/18 00:00 75 124/50 18/18 00:00 40 18/18 00:00 76 18 23:40 24 17/18 23:21 77 21 40 17/18 23:00 72 22 115/42 99 Mechanical Ventilator 40 11/30/18 22:00 70 23 110/56 100 Mechanical Ventilator 40 17/18 21:20 72 22 40 17/18 21:13 75 109/57 11/30/18 21:00 75 23 109/57 100 Mechanical Ventilator 40 11/30/18 20:00 67 11/30/18 20:00 40 11/30/18 20:00 99.3 81 27 112/49 96 Mechanical Ventilator 40 99.3 11/30/18 19:20 74 26 40 17/18 19:00 75 27 106/41 96 Mechanical Ventilator 40 11/30/18 18:00 78 102/41 17/18 18:00 78 27 102/41 92 Mechanical Ventilator 40 17/18 17:12 78 26 40 17/18 17:00 99.4 65 24 102/35 100 Mechanical Ventilator 40 99.4 17/18 16:41 70 17/18 16:18 40 17/18 16:00 75 28 94/41 92 Mechanical Ventilator 40 11/30/18 15:30 40 17/18 15:24 70 21 40 17/18 15:00 70 21 103/50 95 Mechanical Ventilator 40 17/18 14:00 69 22 109/41 97 Mechanical Ventilator 40 17/18 13:15 40 17/18 13:00 74 29 115/40 100 Mechanical Ventilator 40 17/18 12:50 40 17/18 12:45 70 26 40 317/18 12:00 98.8 71 21 108/35 93 Mechanical Ventilator 40 98.8 17/18 12:00 66 95/34 17/18 12:00 40 17/18 11:53 69 17/18 11:11 66 21 40 317/18 11:00 69 20 95/34 95 Mechanical Ventilator 40 11/30/17 10:00 61 23 108/42 100 Mechanical Ventilator 40 11/30/17 09:11 96 11/30/17 09:10 82 27 40 11/30/17 09:01 74 114/46 11/30/17 09:00 78 20 105/48 100 Mechanical Ventilator 11/30/17 08:00 80 22 102/52 99 Mechanical Ventilator 11/30/17 08:00 40 11/30/17 08:00 98.9 98.9 11/30/17 07:27 85 11/30/17 07:10 73 26 40 11/30/17 07:00 83 23 119/48 100 Mechanical Ventilator 40 Status: sedated Condition: critical HEENT: atraumatic Neck: full ROM Heart: HR/BP stable Abdomen: soft, non-tender Extremities: edema Critical Care - Subjective ROS Limited/Unobtainable: Yes FI02: 40 Vent Support Breath Rate: 18 Vent Support Mode: AC Vent Tidal Volume: 600 Sputum Amount: Moderate PEEP: 5.0 PIP: 44 Tube Feeding Amount: 65 I&O: Intake and Output 11/30/17 12/01/17 19:00 07:00 Intake Total 1030.0 ml 1456.167 ml Output Total 1190 ml 585 ml Balance -160.0 ml 871.167 ml Intake Free Water 60 ml 430 ml IV Total 165.0 ml 311.167 ml Tube Feeding 705 ml 715 ml Other 100 ml Output Urine Total 1190 ml 585 ml # Bowel Movements 2 Subjective: sedated at this time, weaned 3 times, the longest 30 minutes mostly due to agitation remains on the vent no bleeding positive uop tailgating TF as well no pressors CXR: pending ET-Tube: 7.5 ET Position: 23 Labs: Laboratory Tests Test 11/30/17 18:50 12/01/17 03:50 12/01/17 04:00 Vancomycin Level Trough 14.5 ug/mL (5.0-12.0) H White Blood Count Pending Red Blood Count Pending Hemoglobin Pending Hematocrit Pending Mean Corpuscular Volume Pending Mean Corpuscular Hemoglobin Pending Mean Corpuscular Hemoglobin Concent Pending Red Cell Distribution Width Pending Platelet Count Pending Mean Platelet Volume Pending Neutrophils (%) (Auto) Pending Lymphocytes (%) (Auto) Pending Monocytes (%) (Auto) Pending Eosinophils (%) (Auto) Pending Basophils (%) (Auto) Pending Troponin I Pending Sodium Level 152 MMOL/L (136-145) H Potassium Level 3.9 MMOL/L (3.5-5.1) Chloride Level 117 MMOL/L (98-107) H Carbon Dioxide Level 30 MMOL/L (21-32) Anion Gap 5 mmol/L (5-15) Blood Urea Nitrogen 25 mg/dL (7-18) H Creatinine 1.3 MG/DL (0.55-1.30) Estimat Glomerular Filtration Rate mL/min (>60) Glucose Level 155 MG/DL (74-106) H Calcium Level 7.7 MG/DL (8.5-10.1) L Magnesium Level 2.3 MG/DL (1.8-2.4) Pro-B-Type Natriuretic Peptide 7918 pg/mL (0-125) H PIERRE GRIFFIN DO Dec 01, 2017 06:35
[2017-12-01] MEDS: Spironolactone 25mg tab ORAL SCH (08:15)
[2017-12-01] MEDS: Pantoprazole Inj IVP SCH (08:15)
[2017-12-01] MEDS: Aspirin Baby 81mg NG SCH (08:15)
[2017-12-01] MEDS: Phospha 250 Neutral tab ORAL SCH ×3 (08:15→17:38)
[2017-12-01] MEDS: Magnesium Oxide 400mg tab ORAL SCH ×3 (08:15→17:38)
[2017-12-01] MEDS: Metoprolol 25mg tab ORAL SCH ×2 (08:16→20:32)
[2017-12-01] MEDS: Vitamin A&D Oint 2oz Tube TOPIC SCH ×2 (08:16→20:31)
[2017-12-01 09:40] LABS: HEMATOCRIT 27.4 % (42.0-52.0); HEMOGLOBIN 8.5 G/DL (14.2-18.0); MEAN CORPUSCULAR VOLUME 93 FL (80-99); PLATELET COUNT 65 K/UL (150-450); RED BLOOD COUNT 2.96 M/UL (4.70-6.10); RED CELL DISTRIBUTION WIDTH 16.2 % (11.6-14.8); WHITE BLOOD COUNT 6.8 K/UL (4.8-10.8)
[2017-12-01] MEDS: Heparin 5000 units/ml inj SUBQ SCH ×2 (09:50→20:31)
--- NOTE | 2017-12-01 12:12 | Diagnostic Imaging Report ---
Indication: Respiratory failure Technique: XRAY Chest 1v Comparison: 11/27/2018 Findings: Endotracheal tube tip approximately 8 mm above the alissa. Cardiomegaly is again noted. Somewhat globular appearance of the heart raises question for pericardial effusion. Right-sided pacemaker unchanged. There is persistent interstitial and bilateral airspace disease with layering right-sided pleural effusion. There may be slight improved aeration of the right apex. There is no appreciable pneumothorax. Osseous structures are stable. Gastrostomy tube partially visualized Impression: Persistent bilateral airspace disease with possible slight improved aeration in the right apex compared to the prior exam. Cardiomegaly. Slight globular contour raises question for pericardial effusion. Correlate with echocardiogram. Layering right-sided pleural effusion.
--- NOTE | 2017-12-01 12:22 | General Progress Note ---
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 SNOMED: 939052287 (6) Pleural effusion ICD Codes: J90 - Pleural effusion, not elsewhere classified SNOMED: 45962685 (7) 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 ICD Codes: M51.26 - Other intervertebral disc displacement, lumbar region SNOMED: 35395635 (8) Urinary retention ICD Codes: R33.9 - Retention of urine, unspecified SNOMED: 049597991 (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) ICD Codes: D50.0 - Iron deficiency anemia secondary to blood loss (chronic) SNOMED: 02598116, 087398247 (10) Atrial fibrillation ICD Codes: I48.91 - Atrial fibrillation SNOMED: 32558873 Qualifiers: Qualified Codes: I48.2 - Chronic atrial fibrillation (11) Pneumonia ICD Codes: J18.9 - Pneumonia, unspecified organism SNOMED: 318038342 Qualifiers: Qualified Codes: J18.9 - Pneumonia, unspecified organism (12) Acute respiratory failure ICD Codes: J96.00 - Acute respiratory failure, unspecified whether with hypoxia or hypercapnia SNOMED: 55844887 Qualifiers: Qualified Codes: J96.01 - Acute respiratory failure with hypoxia (13) Hypernatremia ICD Codes: E87.0 - Hyperosmolality and hypernatremia SNOMED: 83883495 Assessment/Plan HC acquired pneumonia, possible aspiration, continue vanco and zosyn, mrsa pneumonia, vre colonized, enterococcal uti chf, resume diuretics as hypotension resolved-lasix reorder 11/29 as + fluid bal , hold now as likely volume depleted parox afib , continue meds, replaceK hypernatremia give free water high risk, daughter aware, full code icu time 40 min Subjective ROS Limited/Unobtainable: Yes Allergies: Coded Allergies: VINCENT INHIBITORS (Verified Allergy, Mild, 08/06/17) SHELLFISH (Verified Allergy, Unknown, 07/01/11) Subjective alert weak Objective Last 24 Hour Vital Signs Date Time Temp Pulse Resp B/P (MAP) Pulse Ox O2 Delivery O2 Flow Rate FiO2 12/01/17 10:31 53 18 40 12/01/17 10:00 18 12/01/17 09:46 98 12/01/17 09:29 57 19 40 12/01/17 09:00 18 12/01/17 09:00 68 19 114/34 100 Mechanical Ventilator 40 12/01/17 08:20 40 12/01/17 08:16 75 123/47 12/01/17 08:00 68 12/01/17 08:00 18 12/01/17 08:00 99.5 75 30 123/47 100 Mechanical Ventilator 40 99.5 12/01/17 07:40 40 12/01/17 07:30 68 20 115/45 100 Mechanical Ventilator 40 12/01/17 07:27 70 19 40 12/01/17 07:00 61 19 109/47 100 Mechanical Ventilator 40 12/01/17 07:00 18 12/01/17 06:30 63 19 111/49 100 Mechanical Ventilator 40 12/01/17 06:00 71 19 111/49 100 Mechanical Ventilator 40 12/01/17 06:00 21 12/01/17 05:47 66 114/39 12/01/17 05:34 67 18 40 12/01/17 05:30 68 19 114/39 100 Mechanical Ventilator 40 12/01/17 05:00 71 19 93/42 95 Mechanical Ventilator 40 12/01/17 05:00 20 12/01/17 04:30 71 19 107/51 100 Mechanical Ventilator 40 12/01/17 04:00 40 12/01/17 04:00 70 19 113/42 100 Mechanical Ventilator 40 12/01/17 04:00 23 12/01/17 04:00 69 12/01/17 03:30 72 19 105/51 100 Mechanical Ventilator 40 12/01/17 03:00 70 20 111/42 100 Mechanical Ventilator 40 12/01/17 03:00 22 3/18/18 02:38 55 20 40 18 02:30 71 20 101/44 100 Mechanical Ventilator 40 12/01/18 02:00 22 18 02:00 68 20 101/44 100 Mechanical Ventilator 40 18 01:30 73 20 106/40 100 Mechanical Ventilator 40 12/01/18 01:00 21 18 01:00 73 21 105/50 100 Mechanical Ventilator 40 18 00:34 73 21 40 18 00:00 99.1 81 22 124/50 100 Mechanical Ventilator 40 99.1 18 00:00 21 18 00:00 75 124/50 18 00:00 40 18 00:00 76 18 23:40 24 18 23:21 77 21 40 11/30/18 23:00 72 22 115/42 99 Mechanical Ventilator 40 18 22:00 70 23 110/56 100 Mechanical Ventilator 40 18 21:20 72 22 40 11/30/18 21:13 75 109/57 11/30/18 21:00 75 23 109/57 100 Mechanical Ventilator 40 11/30/18 20:00 67 11/30/18 20:00 40 18 20:00 99.3 81 27 112/49 96 Mechanical Ventilator 40 99.3 11/30/18 19:20 74 26 40 17/18 19:00 75 27 106/41 96 Mechanical Ventilator 40 17/18 18:00 78 102/41 17/18 18:00 78 27 102/41 92 Mechanical Ventilator 40 17/18 17:12 78 26 40 17/18 17:00 99.4 65 24 102/35 100 Mechanical Ventilator 40 99.4 17/18 16:41 70 17/18 16:18 40 17/18 16:00 75 28 94/41 92 Mechanical Ventilator 40 17/18 15:30 40 3/17/18 15:24 70 21 40 3/17/18 15:00 70 21 103/50 95 Mechanical Ventilator 40 317/18 14:00 69 22 109/41 97 Mechanical Ventilator 40 17/18 13:15 40 317/18 13:00 74 29 115/40 100 Mechanical Ventilator 40 11/30/17 12:50 40 11/30/17 12:45 70 26 40 Intake and Output 11/30/17 12/01/17 19:00 07:00 Intake Total 1030.0 ml 1552.667 ml Output Total 1190 ml 650 ml Balance -160.0 ml 902.667 ml Intake Free Water 60 ml 430 ml IV Total 165.0 ml 342.667 ml Tube Feeding 705 ml 780 ml Other 100 ml Output Urine Total 1190 ml 650 ml # Bowel Movements 2 Laboratory Tests 11/30/17 18:50: Vancomycin Level Trough 14.5H 12/01/17 04:00: Sodium Level 152H, Potassium Level 3.9, Chloride Level 117H, Carbon Dioxide Level 30, Anion Gap 5, Blood Urea Nitrogen 25H, Creatinine 1.3, Estimat Glomerular Filtration Rate , Glucose Level 155H, Calcium Level 7.7L, Magnesium Level 2.3, Pro-B-Type Natriuretic Peptide 7918H 12/01/17 08:00: White Blood Count 6.8, Red Blood Count 2.96L, Hemoglobin 8.5L, Hematocrit 27.4L , Mean Corpuscular Volume 93, Mean Corpuscular Hemoglobin 28.7, Mean Corpuscular Hemoglobin Concent 31.0L, Red Cell Distribution Width 16.2H, Platelet Count 65L, Mean Platelet Volume 9.1, Neutrophils (%) (Auto) , Lymphocytes (%) (Auto) , Monocytes (%) (Auto) , Eosinophils (%) (Auto) , Basophils (%) (Auto) , Differential Total Cells Counted 100, Neutrophils % ( Manual) 87H, Lymphocytes % (Manual) 3L, Monocytes % (Manual) 7, Eosinophils % ( Manual) 3, Basophils % (Manual) 0, Band Neutrophils 0, Platelet Estimate DecreasedL, Platelet Morphology Normal, Hypochromasia 1+, Anisocytosis 1+, Troponin I 0.023 Height (Feet): 6 Height (Inches): 0.00 Weight (Pounds): 129 General Appearance: no apparent distress, lethargic EENT: normal ENT inspection Neck: normal alignment Cardiovascular: normal rate Respiratory/Chest: rhonchi - bilaterally Abdomen: soft, no organomegaly Edema: 1+ Arm (L), 1+ Arm (R), no edema noted Leg (L), no edema noted Leg (R), no edema noted Pedal (L), no edema noted Pedal (R), no edema noted Generalized Neurologic: unresponsive Objective sedated on vent HODAN GAYTAN Dec 01, 2017 12:22
[2017-12-01] MEDS ORDERED: NS 275ml ONE (16:32)
[2017-12-01] MEDS: Vancomycin 1250mg/D5W 250ml IVPB SCH (19:48)
[2017-12-02] VITALS (25 sets, daily range): BP systolic 109–132; BP diastolic 41–89
--- NOTE | 2017-12-02 04:45 | Progress Note ---
DATE: 11/30/2017 CARDIOLOGY PROGRESS NOTE SUBJECTIVE: The patient remains on ventilator support. Weaning efforts ongoing. He continues to have secretions. He continues to have tachycardia and tachypnea with wean. OBJECTIVE: VITAL SIGNS: Blood pressure 119/49, pulse 74, respiratory rate 23. No fevers. Monitor, atrial fibrillation with ventricular pacing. LUNGS: Coarse breath sounds. Scattered rhonchi. HEART: Irregularly irregular rhythm. Normal S1, S2. ABDOMEN: Soft. EXTREMITIES: Trace edema. LABORATORY DATA: White count 9.1, hemoglobin 8.8. Sodium 150, potassium 4.2, bicarbonate 29, BUN 26, creatinine 1.4. IMPRESSION: 1. Dehydration. 2. Hypernatremia. 3. Hyperchloremia. 4. Acute on chronic kidney disease. 5. Acute on chronic systolic and diastolic congestive heart failure. 6. Paroxysmal atrial fibrillation. 7. Permanent pacemaker. 8. 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 9. Respiratory failure. 10. Healthcare-acquired pneumonia. PLAN: 1. Antimicrobials. 2. Weaning effort. 3. Diuresis with caution until free water deficit corrected. 4. Free water replacement by IV route and G-tube. 5. Antimicrobials per Infectious Disease aws consultant. 6. Cardiovascular regimen reviewed. 7. Titrate for optimal blood pressure control and management of heart failure. Sonia Bartholomew JOB#: [id number] CC:
--- NOTE | 2017-12-02 05:00 | Progress Note ---
DATE: 12/01/2017 CARDIOLOGY PROGRESS NOTE SUBJECTIVE: The patient remains on ventilator support. Ongoing efforts to wean and extubate. OBJECTIVE: VITAL SIGNS: Blood pressure 114/34, pulse 68, and respirations 19. Temperature max 99.5. LUNGS: Coarse breath sounds. Few rhonchi. HEART: Irregularly irregular rhythm. Normal S1, paradoxically split S2. ABDOMEN: Soft. G-tube intact. EXTREMITIES: Trace edema. LABORATORY DATA: White count 6.8 and hemoglobin 8.5. Sodium 152, potassium 3.9, chloride 117, bicarb 30, BUN 25, and creatinine 1.3. Magnesium 2.3. Pro-natriuretic peptide 7918, which has decreased significantly from admission of 17,000. IMPRESSION: 1. Respiratory failure. 2. Healthcare-acquired pneumonia. 3. Acute on chronic diastolic and systolic congestive heart failure. 4. Dehydration. 5. Hypernatremia. 6. Hyperchloremia. 7. 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 8. Paroxysmal atrial fibrillation. 9. Permanent pacemaker. PLAN: 1. Hold diuretics. 2. Free water replacement. 3. Antimicrobials. 4. Respiratory hygiene. 5. Weaning efforts. 6. Continue diltiazem and beta-naila. 7. Remains with critical condition and guarded prognosis. 8. No plan for anticoagulation due to increased risk to benefit ratio. Chay Godinez M.D. DR: PHILLIP JOB#: [id number] CC:
[2017-12-02] MEDS: Piperacillin/Tazobactam 3.375 GM in NS 110 ML IVPB SCH (05:32)
[2017-12-02] MEDS: dilTIAZem HCl 60mg tab ORAL SCH ×3 (05:32→17:55)
[2017-12-02 06:02] LABS: HEMATOCRIT 24.7 % (42.0-52.0); HEMOGLOBIN 7.8 G/DL (14.2-18.0); MEAN CORPUSCULAR VOLUME 93 FL (80-99); PLATELET COUNT 63 K/UL (150-450); RED BLOOD COUNT 2.65 M/UL (4.70-6.10); WHITE BLOOD COUNT 5.8 K/UL (4.8-10.8)
[2017-12-02 06:15] LABS: ANION GAP 5 mmol/L (5-15); BLOOD UREA NITROGEN 23 mg/dL (7-18); CALCIUM 7.7 MG/DL (8.5-10.1); CARBON DIOXIDE 30 MMOL/L (21-32); CHLORIDE 115 MMOL/L (98-107); CREATININE 1.2 MG/DL (0.55-1.30); SODIUM 150 MMOL/L (136-145)
[2017-12-02] MEDS: Aspirin Baby 81mg NG SCH (08:50)
[2017-12-02] MEDS: Magnesium Oxide 400mg tab ORAL SCH ×3 (08:50→17:55)
[2017-12-02] MEDS: Pantoprazole Inj IVP SCH (08:50)
[2017-12-02] MEDS: Phospha 250 Neutral tab ORAL SCH ×3 (08:50→17:56)
[2017-12-02] MEDS: Heparin 5000 units/ml inj SUBQ SCH ×2 (08:51→20:31)
[2017-12-02] MEDS: Metoprolol 25mg tab ORAL SCH ×2 (08:51→20:30)
[2017-12-02] MEDS: Vitamin A&D Oint 2oz Tube TOPIC SCH ×2 (08:51→20:33)
--- NOTE | 2017-12-02 09:07 | Pulmonology Progress Note ---
Assessment/Plan Assessment/Plan 1. Pneumonia, healthcare acquired due to s aureus 2. Pleural effusions. 3. Chronic systolic congestive heart failure. 4. Hypotension, due to septic shock, improved. 5. Elevation of troponin, possible acute coronary syndrome. 6. History of CVA with dysarthria and dysphagia. 7. Respiratory failure acute on chronic. 8. Septic shock. 9. Indwelling Reyes 10. GT cont abx not tolerating weaning, may need trach more alert disc w RN IVF Subjective ROS Limited/Unobtainable: Yes Allergies: Coded Allergies: VINCENT INHIBITORS (Verified Allergy, Mild, 08/06/17) SHELLFISH (Verified Allergy, Unknown, 07/01/11) Objective Last 24 Hour Vital Signs Date Time Temp Pulse Resp B/P (MAP) Pulse Ox O2 Delivery O2 Flow Rate FiO2 12/02/17 08:51 61 118/46 12/02/17 07:22 61 22 Mechanical Ventilator 32 12/02/17 07:22 61 22 32 12/02/17 07:00 61 21 112/47 97 Mechanical Ventilator 32 12/02/17 06:00 65 22 132/48 96 Mechanical Ventilator 32 12/02/17 05:32 64 132/48 12/02/17 05:24 66 23 32 12/02/17 05:00 66 23 115/44 97 Mechanical Ventilator 32 12/02/17 04:00 98.7 65 21 118/45 94 Mechanical Ventilator 32 98.7 12/02/17 04:00 32 12/02/17 03:54 72 12/02/17 03:00 63 20 109/44 97 Mechanical Ventilator 32 12/02/17 02:39 61 20 32 12/02/17 02:00 64 22 112/44 96 Mechanical Ventilator 32 12/02/17 01:00 64 20 110/46 100 Mechanical Ventilator 32 12/02/17 01:00 63 22 32 12/02/17 00:10 62 12/02/17 00:00 98.5 62 20 114/42 92 Mechanical Ventilator 32 98.5 12/01/17 23:33 65 127/52 12/01/17 23:00 62 22 119/50 97 Mechanical Ventilator 32 12/01/17 22:56 64 25 32 12/01/17 22:00 62 20 123/56 100 Mechanical Ventilator 35 12/01/17 21:00 67 21 125/47 99 Mechanical Ventilator 35 3/18/18 21:00 35 3/18/18 20:59 67 20 35 3/18/18 20:32 65 125/59 3/18/18 20:00 98.1 70 22 128/54 100 Mechanical Ventilator 40 98.1 18/18 20:00 40 318/18 19:02 74 3/18/18 19:00 64 28 115/54 100 Mechanical Ventilator 40 3/18/18 18:45 66 29 40 318/18 18:00 67 27 134/60 100 Mechanical Ventilator 40 318/18 17:38 63 129/60 3/18/18 17:01 75 33 40 3/18/18 17:00 66 22 120/51 100 Mechanical Ventilator 40 18/18 16:00 70 18/18 16:00 67 30 126/45 100 Mechanical Ventilator 40 318/18 15:15 75 39 40 318/18 15:00 75 24 137/64 100 Mechanical Ventilator 40 12/01/18 14:10 40 12/01/18 14:00 68 21 127/54 100 Mechanical Ventilator 40 18/18 13:00 71 21 117/65 100 Mechanical Ventilator 40 18/18 12:31 76 20 40 18/18 12:00 67 12/01/18 12:00 18 18/18 12:00 64 112/38 12/01/18 12:00 98.9 68 18 123/49 99 Mechanical Ventilator 40 98.9 18/18 11:30 62 18 112/38 99 Mechanical Ventilator 40 12/01/18 11:00 18 12/01/18 11:00 61 18 115/46 97 Mechanical Ventilator 40 12/01/18 10:31 53 18 40 18/18 10:30 61 18 115/40 99 Mechanical Ventilator 40 18/18 10:00 61 19 107/43 99 Mechanical Ventilator 40 18/18 10:00 18 12/01/18 09:46 98 18/18 09:30 61 18 103/39 100 Mechanical Ventilator 40 18/18 09:29 57 19 40 Intake and Output 18/18 12/02/18 19:00 07:00 Intake Total 1219.5 ml 1610.5 ml Output Total 670 ml 645 ml Balance 549.5 ml 965.5 ml Intake Free Water 200 ml IV Total 204.5 ml 1000.5 ml Tube Feeding 715 ml 520 ml Other 100 ml 90 ml Output Urine Total 670 ml 645 ml # Bowel Movements 3 General Appearance: no acute distress HEENT: atraumatic, anicteric Respiratory/Chest: rhonchi Cardiovascular: normal rate Laboratory Tests 12/02/17 04:50: White Blood Count 5.8, Red Blood Count 2.65L, Hemoglobin 7.8L, Hematocrit 24.7L , Mean Corpuscular Volume 93, Mean Corpuscular Hemoglobin 29.5, Mean Corpuscular Hemoglobin Concent 31.7L, Red Cell Distribution Width 16.0H, Platelet Count 63L, Mean Platelet Volume 12.0H, Neutrophils (%) (Auto) , Lymphocytes (%) (Auto) , Monocytes (%) (Auto) , Eosinophils (%) (Auto) , Basophils (%) (Auto) , Differential Total Cells Counted 100, Neutrophils % ( Manual) 80H, Lymphocytes % (Manual) 13L, Monocytes % (Manual) 2, Eosinophils % ( Manual) 5H, Basophils % (Manual) 0, Band Neutrophils 0, Platelet Estimate DecreasedL, Platelet Morphology Normal, Hypochromasia 1+, Anisocytosis 1+, Sodium Level 150H, Potassium Level 4.0, Chloride Level 115H, Carbon Dioxide Level 30, Anion Gap 5, Blood Urea Nitrogen 23H, Creatinine 1.2, Estimat Glomerular Filtration Rate , Glucose Level 148H, Calcium Level 7.7L Current Medications Medications (Trade) Dose Ordered Sig/Scot Route PRN Reason Start Time Stop Time Status Last Admin Dose Admin Aspirin (ASA) 81 mg DAILY NG 11/26/17 09:00 12/26/17 08:59 12/02/17 08:50 Dextrose 1,000 ml @ 50 mls/hr Q20H IV 12/01/17 12:30 12/31/17 12:29 12/02/17 07:39 Diltiazem HCl (Cardizem) 60 mg EVERY 6 HOURS ORAL 11/25/17 18:00 12/25/17 17:59 12/02/17 05:32 Heparin Sodium (Porcine) (Heparin 5000 units/ml) 5,000 units EVERY 12 HOURS SUBQ 11/25/17 21:00 12/25/17 20:59 11/29/17 20:46 Magnesium Oxide (Mag-Ox 400mg) 400 mg THREE TIMES A DAY ORAL 11/26/17 18:00 12/26/17 17:59 12/02/17 08:50 Metoprolol Tartrate (Lopressor) 25 mg Q12HR ORAL 11/25/17 21:00 12/25/17 20:59 12/02/17 08:51 Midazolam HCl 100 ml @ 0 mls/hr Q24H PRN IVPB For Anxiety 11/30/17 22:00 12/07/17 21:59 11/30/17 23:40 Pantoprazole (Protonix) 40 mg DAILY IVP 11/26/17 10:15 12/26/17 10:14 12/02/17 08:50 Phosphorus (Phospha 250 Neutral) 250 mg THREE TIMES A DAY ORAL 11/26/17 13:55 12/26/17 13:54 12/02/17 08:50 Piperacillin Sod/ Tazobactam Sod 3.375 gm/Sodium Chloride 110 ml @ 27.5 mls/hr EVERY 8 HOURS IVPB 11/25/17 22:00 12/05/17 21:59 12/02/17 05:32 Risperidone (RisperDAL) 0.25 mg Q6H PRN ORAL Agitation 12/01/17 12:30 12/31/17 12:29 Vancomycin HCl (Vanco rx to dose) 1 ea DAILY PRN MISC Per rx protocol 11/25/17 17:30 12/25/17 17:29 Vancomycin HCl/ Dextrose 250 ml @ 166.667 mls/hr Q24H IVPB 11/26/17 20:00 12/05/17 19:59 12/01/17 19:48 Vitamin A/Vitamin D (A & D Oint) 1 applic EVERY 12 HOURS TOPIC 11/28/17 21:00 12/28/17 20:59 12/02/17 08:51 Liban Hammer MD Dec 02, 2017 09:07
[2017-12-02] MEDS: Piperacillin/Tazobactam 3.375 GM in D5W 110 ML IVPB SCH ×2 (13:33→21:53)
--- NOTE | 2017-12-02 18:40 | General Progress Note ---
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 SNOMED: 530776896 (6) Pleural effusion ICD Codes: J90 - Pleural effusion, not elsewhere classified SNOMED: 98776051 (7) 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 ICD Codes: M51.26 - Other intervertebral disc displacement, lumbar region SNOMED: 40258347 (8) Urinary retention ICD Codes: R33.9 - Retention of urine, unspecified SNOMED: 150359733 (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) ICD Codes: D50.0 - Iron deficiency anemia secondary to blood loss (chronic) SNOMED: 15150023, 661014067 (10) Atrial fibrillation ICD Codes: I48.91 - Atrial fibrillation SNOMED: 92034883 Qualifiers: Qualified Codes: I48.2 - Chronic atrial fibrillation (11) Pneumonia ICD Codes: J18.9 - Pneumonia, unspecified organism SNOMED: 142289031 Qualifiers: Qualified Codes: J18.9 - Pneumonia, unspecified organism (12) Acute respiratory failure ICD Codes: J96.00 - Acute respiratory failure, unspecified whether with hypoxia or hypercapnia SNOMED: 93001413 Qualifiers: Qualified Codes: J96.01 - Acute respiratory failure with hypoxia (13) Hypernatremia ICD Codes: E87.0 - Hyperosmolality and hypernatremia SNOMED: 17475450 Assessment/Plan HC acquired pneumonia, possible aspiration, continue vanco and zosyn, mrsa pneumonia, vre colonized, enterococcal uti chf, resume diuretics as hypotension resolved-lasix reorder 11/29 as + fluid bal , hold now as likely volume depleted parox afib , continue meds, replaceK hypernatremia give free water high risk, daughter aware, full code not weaning, may need trach icu time 40 min Subjective ROS Limited/Unobtainable: Yes Allergies: Coded Allergies: VINCENT INHIBITORS (Verified Allergy, Mild, 08/06/17) SHELLFISH (Verified Allergy, Unknown, 07/01/11) Subjective alert weak Objective Last 24 Hour Vital Signs Date Time Temp Pulse Resp B/P (MAP) Pulse Ox O2 Delivery O2 Flow Rate FiO2 12/02/17 18:00 61 20 129/89 100 Mechanical Ventilator 32 12/02/17 17:55 60 123/53 12/02/17 17:07 62 23 32 12/02/17 17:00 60 22 123/53 99 Mechanical Ventilator 32 12/02/17 16:00 97.8 61 22 110/45 100 Mechanical Ventilator 32 97.8 12/02/17 16:00 32 12/02/17 16:00 60 12/02/17 15:15 62 23 32 12/02/17 15:00 61 22 115/44 100 Mechanical Ventilator 32 12/02/17 14:00 60 26 114/43 100 Mechanical Ventilator 32 12/02/17 13:32 62 115/41 12/02/17 13:23 61 21 32 12/02/17 13:00 61 21 115/41 99 Mechanical Ventilator 32 12/02/17 12:00 60 20 118/43 98 Mechanical Ventilator 32 12/02/17 12:00 60 12/02/17 12:00 32 12/02/17 11:00 61 22 123/45 98 Mechanical Ventilator 32 12/02/17 10:53 60 21 32 12/02/17 10:00 61 22 113/47 97 Mechanical Ventilator 32 12/02/17 09:08 62 18 32 12/02/17 09:07 98 12/02/17 09:00 61 21 113/57 97 Mechanical Ventilator 32 12/02/17 08:51 61 118/46 12/02/17 08:00 61 12/02/17 08:00 98.8 61 23 118/46 97 Mechanical Ventilator 32 98.8 12/02/17 08:00 32 12/02/17 07:22 61 22 Mechanical Ventilator 32 12/02/17 07:22 61 22 32 12/02/17 07:00 61 21 112/47 97 Mechanical Ventilator 32 12/02/17 06:00 65 22 132/48 96 Mechanical Ventilator 32 3/19/18 05:32 64 132/48 12/02/17 05:24 66 23 32 12/02/17 05:00 66 23 115/44 97 Mechanical Ventilator 32 12/02/17 04:00 98.7 65 21 118/45 94 Mechanical Ventilator 32 98.7 12/02/17 04:00 32 12/02/17 03:54 72 12/02/17 03:00 63 20 109/44 97 Mechanical Ventilator 32 12/02/17 02:39 61 20 32 12/02/17 02:00 64 22 112/44 96 Mechanical Ventilator 32 12/02/17 01:00 64 20 110/46 100 Mechanical Ventilator 32 12/02/17 01:00 63 22 32 12/02/17 00:10 62 12/02/17 00:00 98.5 62 20 114/42 92 Mechanical Ventilator 32 98.5 12/01/17 23:33 65 127/52 12/01/17 23:00 62 22 119/50 97 Mechanical Ventilator 32 12/01/17 22:56 64 25 32 12/01/17 22:00 62 20 123/56 100 Mechanical Ventilator 35 12/01/17 21:00 67 21 125/47 99 Mechanical Ventilator 35 12/01/17 21:00 35 12/01/17 20:59 67 20 35 12/01/17 20:32 65 125/59 12/01/17 20:00 98.1 70 22 128/54 100 Mechanical Ventilator 40 98.1 12/01/17 20:00 40 12/01/17 19:02 74 12/01/17 19:00 64 28 115/54 100 Mechanical Ventilator 40 12/01/17 18:45 66 29 40 Intake and Output 12/01/17 12/02/17 19:00 07:00 Intake Total 1219.5 ml 1610.5 ml Output Total 670 ml 645 ml Balance 549.5 ml 965.5 ml Intake Free Water 200 ml IV Total 204.5 ml 1000.5 ml Tube Feeding 715 ml 520 ml Other 100 ml 90 ml Output Urine Total 670 ml 645 ml # Bowel Movements 3 Laboratory Tests 12/02/17 04:50: White Blood Count 5.8, Red Blood Count 2.65L, Hemoglobin 7.8L, Hematocrit 24.7L , Mean Corpuscular Volume 93, Mean Corpuscular Hemoglobin 29.5, Mean Corpuscular Hemoglobin Concent 31.7L, Red Cell Distribution Width 16.0H, Platelet Count 63L, Mean Platelet Volume 12.0H, Neutrophils (%) (Auto) , Lymphocytes (%) (Auto) , Monocytes (%) (Auto) , Eosinophils (%) (Auto) , Basophils (%) (Auto) , Differential Total Cells Counted 100, Neutrophils % ( Manual) 80H, Lymphocytes % (Manual) 13L, Monocytes % (Manual) 2, Eosinophils % ( Manual) 5H, Basophils % (Manual) 0, Band Neutrophils 0, Platelet Estimate DecreasedL, Platelet Morphology Normal, Hypochromasia 1+, Anisocytosis 1+, Sodium Level 150H, Potassium Level 4.0, Chloride Level 115H, Carbon Dioxide Level 30, Anion Gap 5, Blood Urea Nitrogen 23H, Creatinine 1.2, Estimat Glomerular Filtration Rate , Glucose Level 148H, Calcium Level 7.7L Height (Feet): 6 Height (Inches): 0.00 Weight (Pounds): 134 General Appearance: alert, other - intubated EENT: normal ENT inspection Neck: normal alignment Cardiovascular: normal rate, regular rhythm Respiratory/Chest: rhonchi - bilaterally Abdomen: non tender, soft Edema: 1+ Arm (L), 1+ Arm (R), no edema noted Leg (L), no edema noted Leg (R), no edema noted Pedal (L), no edema noted Pedal (R) Neurologic: office helper II-XII grossly normal Objective sedated on vent HODAN GAYTAN Dec 02, 2017 18:40
[2017-12-02] MEDS: Vancomycin 1250mg/D5W 250ml IVPB SCH (20:30)
[2017-12-02] MEDS: Midazolam/D5W 100ml 100 ML IVPB PRN (21:52)
[2017-12-03] VITALS (30 sets, daily range): BP systolic 95–137; BP diastolic 41–63
--- NOTE | 2017-12-03 02:30 | Progress Note ---
DATE: 12/02/2017 SUBJECTIVE: The patient remains on ventilator support in the intensive care unit with failure to wean at this time. Tracheostomy is being considered. Monitor reveals atrial fibrillation with demand pacing. OBJECTIVE: VITAL SIGNS: Blood pressure 129/89 and earlier 110/45, heart rate 60, respiratory rate 20, afebrile. LUNGS: Bilateral breath sounds with rhonchi. HEART: Irregularly irregular rhythm. S1, S2 with a 1/6 systolic apical murmur. ABDOMEN: Soft. EXTREMITIES: With trace edema. LABORATORY DATA: White count 5.8, hemoglobin 7.8. Sodium 150, potassium 4, bicarbonate 30, chloride 115, BUN 23, creatinine 1.2. IMPRESSION: 1. Respiratory failure. 2. Healthcare-acquired pneumonia. 3. Dehydration. 4. Hypernatremia. 5. Hyperchloremia. 6. Chronic diastolic and systolic congestive heart failure. 7. Paroxysmal atrial fibrillation. 8. Permanent pacemaker. PLAN: 1. Antimicrobials. 2. Free water replacement. 3. Weaning efforts. 4. No diuretics. 5. Continue current cardiovascular regimen avoiding diuretics for now. 6. No plans for full anticoagulation due to increased [id number] ratio and bleeding complications in the past. Chay Godinez M.D. DR: Sia JOB#: [id number] CC:
[2017-12-03] MEDS: Piperacillin/Tazobactam 3.375 GM in D5W 110 ML IVPB SCH ×3 (05:20→23:00)
[2017-12-03 05:21] LABS: HEMATOCRIT 23.5 % (42.0-52.0); HEMOGLOBIN 7.4 G/DL (14.2-18.0); MEAN CORPUSCULAR VOLUME 93 FL (80-99); PLATELET COUNT 76 K/UL (150-450); RED BLOOD COUNT 2.52 M/UL (4.70-6.10); RED CELL DISTRIBUTION WIDTH 16.4 % (11.6-14.8); WHITE BLOOD COUNT 6.3 K/UL (4.8-10.8)
[2017-12-03] MEDS: dilTIAZem HCl 60mg tab ORAL SCH ×5 (05:24→23:54)
[2017-12-03 05:55] LABS: ANION GAP 7 mmol/L (5-15); BLOOD UREA NITROGEN 20 mg/dL (7-18); CALCIUM 7.7 MG/DL (8.5-10.1); CARBON DIOXIDE 28 MMOL/L (21-32); CHLORIDE 110 MMOL/L (98-107); CREATININE 1.2 MG/DL (0.55-1.30); SODIUM 145 MMOL/L (136-145)
[2017-12-03] MEDS: Vitamin A&D Oint 2oz Tube TOPIC SCH ×2 (09:00→20:32)
[2017-12-03] MEDS: Heparin 5000 units/ml inj SUBQ SCH ×2 (09:00→20:34)
[2017-12-03] MEDS: Magnesium Oxide 400mg tab ORAL SCH ×3 (09:39→18:04)
[2017-12-03] MEDS: Phospha 250 Neutral tab ORAL SCH ×2 (09:39→13:11)
[2017-12-03] MEDS: Metoprolol 25mg tab ORAL SCH ×2 (09:39→20:31)
[2017-12-03] MEDS: Pantoprazole Inj IVP SCH (09:39)
[2017-12-03] MEDS: Aspirin Baby 81mg NG SCH (09:39)
--- NOTE | 2017-12-03 10:59 | Pulmonology Progress Note ---
Assessment/Plan Assessment/Plan 1. Pneumonia, healthcare acquired due to s aureus 2. Pleural effusions. 3. Chronic systolic congestive heart failure. 4. Hypotension, due to septic shock, improved. 5. Elevation of troponin, possible acute coronary syndrome. 6. History of CVA with dysarthria and dysphagia. 7. Respiratory failure acute on chronic. 8. Septic shock. 9. Indwelling Reyes 10. GT 11. Anemia cont abx still not tolerating weaning, may need trach stool OB ?transfuse disc w RN Subjective ROS Limited/Unobtainable: Yes Allergies: Coded Allergies: VINCENT INHIBITORS (Verified Allergy, Mild, 08/06/17) SHELLFISH (Verified Allergy, Unknown, 07/01/11) Objective Last 24 Hour Vital Signs Date Time Temp Pulse Resp B/P (MAP) Pulse Ox O2 Delivery O2 Flow Rate FiO2 12/03/17 09:39 81 128/56 12/03/17 09:26 81 27 32 12/03/17 09:00 75 22 128/56 98 Mechanical Ventilator 32 12/03/17 08:00 98.7 72 20 122/50 98 Mechanical Ventilator 32 98.7 12/03/17 08:00 32 12/03/17 08:00 72 12/03/17 07:49 35 12/03/17 07:42 73 42 35 12/03/17 07:00 64 25 95/58 98 Mechanical Ventilator 32 12/03/17 06:00 71 25 122/41 99 Mechanical Ventilator 32 12/03/17 06:00 22 12/03/17 05:30 66 20 130/49 100 Mechanical Ventilator 32 12/03/17 05:24 66 111/42 12/03/17 05:10 60 20 32 12/03/17 05:00 66 20 130/49 100 Mechanical Ventilator 32 12/03/17 05:00 20 12/03/17 04:30 66 21 111/42 98 Mechanical Ventilator 32 12/03/17 04:00 32 12/03/17 04:00 99.1 65 19 124/47 98 Mechanical Ventilator 32 99.1 12/03/17 04:00 19 12/03/17 04:00 64 12/03/17 03:30 64 20 116/58 98 Mechanical Ventilator 32 12/03/17 03:14 63 22 32 12/03/17 03:00 20 12/03/17 03:00 63 20 116/58 98 Mechanical Ventilator 32 3/20/18 02:30 62 20 117/50 98 Mechanical Ventilator 32 3/20/18 02:00 64 20 118/44 98 Mechanical Ventilator 32 3/20/18 02:00 20 320/18 01:30 63 19 121/48 100 Mechanical Ventilator 32 3/20/18 01:14 60 20 32 3/20/18 01:00 62 24 117/42 98 Mechanical Ventilator 32 3/20/18 01:00 19 12/03/17 00:30 62 24 120/45 98 Mechanical Ventilator 32 3/20/18 00:00 99.1 62 24 120/45 98 Mechanical Ventilator 32 99.1 20/18 00:00 20 20/ 00:00 62 120/45 12/03/ 00:00 100 12/03/17 00:00 32 3/19/18 23:13 61 21 32 3/19/18 23:00 20 18 23:00 65 22 117/43 95 Mechanical Ventilator 32 3//18 22:30 61 22 120/45 95 Mechanical Ventilator 32 3/19/18 22:00 61 22 116/47 95 Mechanical Ventilator 32 3/19/18 22:00 20 12/02/18 21:52 20 12/02/18 21:03 60 22 32 3//18 21:00 98 20 127/63 97 Mechanical Ventilator 32 3/19/18 21:00 23 12/02/18 20:30 57 116/49 3/19/18 20:00 32 3/19/18 20:00 62 12/02/18 20:00 98.5 62 22 116/49 100 Mechanical Ventilator 32 98.5 319/18 20:00 21 319/18 19:01 60 21 32 3/19/18 19:00 63 20 121/62 100 Mechanical Ventilator 32 3/19/18 18:00 61 20 129/89 100 Mechanical Ventilator 32 3/19/18 17:55 60 123/53 3/19/18 17:07 62 23 32 3/19/18 17:00 60 22 123/53 99 Mechanical Ventilator 32 3/19/18 16:00 97.8 61 22 110/45 100 Mechanical Ventilator 32 97.8 3/19/18 16:00 32 3/19/18 16:00 60 3/19/18 15:15 62 23 32 12/02/17 15:00 61 22 115/44 100 Mechanical Ventilator 32 12/02/17 14:00 60 26 114/43 100 Mechanical Ventilator 32 12/02/17 13:32 62 115/41 12/02/17 13:23 61 21 32 12/02/17 13:00 61 21 115/41 99 Mechanical Ventilator 32 12/02/17 12:00 60 20 118/43 98 Mechanical Ventilator 32 12/02/17 12:00 60 12/02/17 12:00 32 12/02/17 11:00 61 22 123/45 98 Mechanical Ventilator 32 Intake and Output 12/02/17 12/03/17 19:00 07:00 Intake Total 1428.75 ml 1786.667 ml Output Total 635 ml 675 ml Balance 793.75 ml 1111.667 ml Intake Free Water 200 ml IV Total 648.75 ml 756.667 ml Tube Feeding 780 ml 780 ml Other 50 ml Output Urine Total 635 ml 675 ml General Appearance: no acute distress Respiratory/Chest: lungs clear, decreased breath sounds Cardiovascular: normal rate Abdomen: soft, non tender Laboratory Tests 12/02/17 18:50: Vancomycin Level Trough 13.3H 12/03/17 04:05: White Blood Count 6.3, Red Blood Count 2.52L, Hemoglobin 7.4L, Hematocrit 23.5L , Mean Corpuscular Volume 93, Mean Corpuscular Hemoglobin 29.5, Mean Corpuscular Hemoglobin Concent 31.7L, Red Cell Distribution Width 16.4H, Platelet Count 76L, Mean Platelet Volume 11.7H, Neutrophils (%) (Auto) , Lymphocytes (%) (Auto) , Monocytes (%) (Auto) , Eosinophils (%) (Auto) , Basophils (%) (Auto) , Differential Total Cells Counted 100, Neutrophils % ( Manual) 82H, Lymphocytes % (Manual) 9L, Monocytes % (Manual) 5, Eosinophils % ( Manual) 4H, Basophils % (Manual) 0, Band Neutrophils 0, Platelet Estimate DecreasedL, Platelet Morphology Normal, Hypochromasia 1+, Anisocytosis 1+, Sodium Level 145, Potassium Level 4.0, Chloride Level 110H, Carbon Dioxide Level 28, Anion Gap 7, Blood Urea Nitrogen 20H, Creatinine 1.2, Estimat Glomerular Filtration Rate , Glucose Level 135H, Calcium Level 7.7L Current Medications Medications (Trade) Dose Ordered Sig/Scot Route PRN Reason Start Time Stop Time Status Last Admin Dose Admin Aspirin (ASA) 81 mg DAILY NG 11/26/17 09:00 12/26/17 08:59 12/03/17 09:39 Dextrose 1,000 ml @ 50 mls/hr Q20H IV 12/01/17 12:30 12/31/17 12:29 12/03/17 05:20 Diltiazem HCl (Cardizem) 60 mg EVERY 6 HOURS ORAL 11/25/17 18:00 12/25/17 17:59 12/02/17 17:55 Heparin Sodium (Porcine) (Heparin 5000 units/ml) 5,000 units EVERY 12 HOURS SUBQ 11/25/17 21:00 12/25/17 20:59 11/29/17 20:46 Magnesium Oxide (Mag-Ox 400mg) 400 mg THREE TIMES A DAY ORAL 11/26/17 18:00 12/26/17 17:59 12/03/17 09:39 Metoprolol Tartrate (Lopressor) 25 mg Q12HR ORAL 11/25/17 21:00 12/25/17 20:59 12/03/17 09:39 Midazolam HCl 100 ml @ 0 mls/hr Q24H PRN IVPB For Anxiety 11/30/17 22:00 12/07/17 21:59 12/02/17 21:52 Pantoprazole (Protonix) 40 mg DAILY IVP 11/26/17 10:15 12/26/17 10:14 12/03/17 09:39 Phosphorus (Phospha 250 Neutral) 250 mg THREE TIMES A DAY ORAL 11/26/17 13:55 12/26/17 13:54 12/03/17 09:39 Piperacillin Sod/ Tazobactam Sod 3.375 gm/Dextrose 110 ml @ 27.5 mls/hr EVERY 8 HOURS IVPB 12/02/17 14:00 12/09/17 13:59 12/03/17 05:20 Risperidone (RisperDAL) 0.25 mg Q6H PRN ORAL Agitation 12/01/17 12:30 12/31/17 12:29 Vancomycin HCl (Vanco rx to dose) 1 ea DAILY PRN MISC Per rx protocol 11/25/17 17:30 12/25/17 17:29 Vancomycin HCl/ Dextrose 250 ml @ 166.667 mls/hr Q24H IVPB 11/26/17 20:00 12/05/17 19:59 12/02/17 20:30 Vitamin A/Vitamin D (A & D Oint) 1 applic EVERY 12 HOURS TOPIC 11/28/17 21:00 12/28/17 20:59 12/03/17 09:00 Liban Hammer MD Dec 03, 2017 10:59
--- NOTE | 2017-12-03 13:16 | General Progress Note ---
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 SNOMED: 385100921 (6) Pleural effusion ICD Codes: J90 - Pleural effusion, not elsewhere classified SNOMED: 77265888 (7) 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 ICD Codes: M51.26 - Other intervertebral disc displacement, lumbar region SNOMED: 37156578 (8) Urinary retention ICD Codes: R33.9 - Retention of urine, unspecified SNOMED: 707140594 (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) ICD Codes: D50.0 - Iron deficiency anemia secondary to blood loss (chronic) SNOMED: 69214967, 812344102 (10) Atrial fibrillation ICD Codes: I48.91 - Atrial fibrillation SNOMED: 51520298 Qualifiers: Qualified Codes: I48.2 - Chronic atrial fibrillation (11) Pneumonia ICD Codes: J18.9 - Pneumonia, unspecified organism SNOMED: 583169559 Qualifiers: Qualified Codes: J18.9 - Pneumonia, unspecified organism (12) Acute respiratory failure ICD Codes: J96.00 - Acute respiratory failure, unspecified whether with hypoxia or hypercapnia SNOMED: 82544801 Qualifiers: Qualified Codes: J96.01 - Acute respiratory failure with hypoxia (13) Hypernatremia ICD Codes: E87.0 - Hyperosmolality and hypernatremia SNOMED: 99132753 Assessment/Plan HC acquired pneumonia, possible aspiration, continue vanco and zosyn, mrsa pneumonia, vre colonized, enterococcal uti chf, resume diuretics as hypotension resolved-lasix reorder 11/29 as + fluid bal , hold now as likely volume depleted parox afib , continue meds, replaceK hypernatremia give free water improving, reduce iv d5w anemia well tolerated, order venofer , trend lab high risk, daughter aware, full code not weaning, may need trach icu time 40 min Subjective ROS Limited/Unobtainable: Yes Allergies: Coded Allergies: VINCENT INHIBITORS (Verified Allergy, Mild, 08/06/17) SHELLFISH (Verified Allergy, Unknown, 07/01/11) Subjective alert weak Objective Last 24 Hour Vital Signs Date Time Temp Pulse Resp B/P (MAP) Pulse Ox O2 Delivery O2 Flow Rate FiO2 12/03/17 11:28 66 21 32 12/03/17 09:39 81 128/56 12/03/17 09:26 81 27 32 12/03/17 09:00 75 22 128/56 98 Mechanical Ventilator 32 12/03/17 08:00 98.7 72 20 122/50 98 Mechanical Ventilator 32 98.7 12/03/17 08:00 32 12/03/17 08:00 72 12/03/17 07:49 35 12/03/17 07:42 73 42 35 12/03/17 07:00 64 25 95/58 98 Mechanical Ventilator 32 12/03/17 06:00 71 25 122/41 99 Mechanical Ventilator 32 12/03/17 06:00 22 12/03/17 05:30 66 20 130/49 100 Mechanical Ventilator 32 12/03/17 05:24 66 111/42 12/03/17 05:10 60 20 32 12/03/17 05:00 66 20 130/49 100 Mechanical Ventilator 32 12/03/17 05:00 20 12/03/17 04:30 66 21 111/42 98 Mechanical Ventilator 32 12/03/17 04:00 32 12/03/17 04:00 99.1 65 19 124/47 98 Mechanical Ventilator 32 99.1 12/03/17 04:00 19 12/03/17 04:00 64 12/03/17 03:30 64 20 116/58 98 Mechanical Ventilator 32 12/03/17 03:14 63 22 32 12/03/17 03:00 20 12/03/17 03:00 63 20 116/58 98 Mechanical Ventilator 32 12/03/17 02:30 62 20 117/50 98 Mechanical Ventilator 32 12/03/17 02:00 64 20 118/44 98 Mechanical Ventilator 32 12/03/17 02:00 20 3/20/18 01:30 63 19 121/48 100 Mechanical Ventilator 32 3/20/18 01:14 60 20 32 3/20/18 01:00 62 24 117/42 98 Mechanical Ventilator 32 3/20/18 01:00 19 320/18 00:30 62 24 120/45 98 Mechanical Ventilator 32 3/20/18 00:00 99.1 62 24 120/45 98 Mechanical Ventilator 32 99.1 3/20/18 00:00 20 320/18 00:00 62 120/45 3/20/18 00:00 100 3/20/18 00:00 32 3/19/18 23:13 61 21 32 3/19/18 23:00 20 3/19/18 23:00 65 22 117/43 95 Mechanical Ventilator 32 3/19/18 22:30 61 22 120/45 95 Mechanical Ventilator 32 3/19/18 22:00 61 22 116/47 95 Mechanical Ventilator 32 3/19/18 22:00 20 319/18 21:52 20 3/19/18 21:03 60 22 32 3/19/18 21:00 98 20 127/63 97 Mechanical Ventilator 32 3/19/18 21:00 23 3/19/18 20:30 57 116/49 3/19/18 20:00 32 3/19/18 20:00 62 3/19/18 20:00 98.5 62 22 116/49 100 Mechanical Ventilator 32 98.5 3/19/18 20:00 21 3/19/18 19:01 60 21 32 3/19/18 19:00 63 20 121/62 100 Mechanical Ventilator 32 3/19/18 18:00 61 20 129/89 100 Mechanical Ventilator 32 3/19/18 17:55 60 123/53 3/19/18 17:07 62 23 32 3/19/18 17:00 60 22 123/53 99 Mechanical Ventilator 32 3/19/18 16:00 97.8 61 22 110/45 100 Mechanical Ventilator 32 97.8 3/19/18 16:00 32 3/19/18 16:00 60 3/19/18 15:15 62 23 32 3/19/18 15:00 61 22 115/44 100 Mechanical Ventilator 32 3/19/18 14:00 60 26 114/43 100 Mechanical Ventilator 32 3/19/18 13:32 62 115/41 3/19/18 13:23 61 21 32 Intake and Output 12/02/17 12/03/17 19:00 07:00 Intake Total 1428.75 ml 1786.667 ml Output Total 635 ml 675 ml Balance 793.75 ml 1111.667 ml Intake Free Water 200 ml IV Total 648.75 ml 756.667 ml Tube Feeding 780 ml 780 ml Other 50 ml Output Urine Total 635 ml 675 ml Laboratory Tests 12/02/17 18:50: Vancomycin Level Trough 13.3H 12/03/17 04:05: White Blood Count 6.3, Red Blood Count 2.52L, Hemoglobin 7.4L, Hematocrit 23.5L , Mean Corpuscular Volume 93, Mean Corpuscular Hemoglobin 29.5, Mean Corpuscular Hemoglobin Concent 31.7L, Red Cell Distribution Width 16.4H, Platelet Count 76L, Mean Platelet Volume 11.7H, Neutrophils (%) (Auto) , Lymphocytes (%) (Auto) , Monocytes (%) (Auto) , Eosinophils (%) (Auto) , Basophils (%) (Auto) , Differential Total Cells Counted 100, Neutrophils % ( Manual) 82H, Lymphocytes % (Manual) 9L, Monocytes % (Manual) 5, Eosinophils % ( Manual) 4H, Basophils % (Manual) 0, Band Neutrophils 0, Platelet Estimate DecreasedL, Platelet Morphology Normal, Hypochromasia 1+, Anisocytosis 1+, Sodium Level 145, Potassium Level 4.0, Chloride Level 110H, Carbon Dioxide Level 28, Anion Gap 7, Blood Urea Nitrogen 20H, Creatinine 1.2, Estimat Glomerular Filtration Rate , Glucose Level 135H, Calcium Level 7.7L Height (Feet): 6 Height (Inches): 0.00 Weight (Pounds): 127 General Appearance: alert EENT: normal ENT inspection Neck: normal alignment Cardiovascular: regular rhythm Respiratory/Chest: rhonchi - bilaterally Abdomen: non tender, soft Edema: 1+ Arm (L), 1+ Arm (R), no edema noted Leg (L), no edema noted Leg (R), no edema noted Pedal (L), no edema noted Pedal (R), no edema noted Generalized Objective alert on vent HODAN GAYTAN Dec 03, 2017 13:15
[2017-12-03 14:42] LABS: % IRON SATURATION 15 % (15-50); IRON 19 ug/dL (50-175); TOTAL IRON BINDING CAPACITY 126 ug/dL (250-450)
[2017-12-03 14:59] LABS: FERRITIN 818 NG/ML (8-388)
[2017-12-03] MEDS: Vancomycin 1250mg/D5W 250ml IVPB SCH (19:49)
[2017-12-03] MEDS: Iron Sucrose 100 MG in NS 55 ML IV SCH (20:31)
--- NOTE | 2017-12-03 23:31 | Progress Note ---
DATE: 12/03/2017 CARDIOLOGY PROGRESS NOTE SUBJECTIVE: The patient remains on ventilator support in the intensive care unit. Condition remains critical. Prognosis guarded. The patient continues to have weaning efforts ongoing, but is not tolerating wean at this time. Monitored rhythm, atrial fibrillation with demand ventricular pacing. PHYSICAL EXAMINATION: VITAL SIGNS: Blood pressure 128/56, pulse 81, respirations 21, and afebrile. HEENT: Orally intubated. RESPIRATORY: Coarse breath sounds with rhonchi. HEART: Irregularly irregular rhythm. Normal S1, paradoxically split S2. ABDOMEN: Soft, nontender. G-tube intact. EXTREMITIES: No edema. LABORATORY DATA: White count 6.3, hemoglobin 7.4, and platelets 76,000. Sodium 145, potassium 4, chloride 110, bicarbonate 28, BUN 20, and creatinine 1.2. Iron saturation 15%. IMPRESSION: 1. Respiratory failure. 2. Healthcare-acquired pneumonia. 3. Paroxysmal atrial fibrillation. 4. Chronic diastolic and systolic congestive heart failure. 5. Permanent pacemaker with stable function. 6. Chronic anemia. 7. Dehydration, hypernatremia, corrected. PLAN: 1. Maintain adequate free water intake. 2. Transfuse for low hemoglobin. 3. Weaning efforts. 4. Hold diuresis. 5. Remainder of cardiovascular regimen to continue without change. 6. Antimicrobials. 7. Respiratory hygiene. Chay Godinez M.D. DR: CELIA JOB#: [id number] CC:
[2017-12-04] VITALS (24 sets, daily range): BP systolic 105–134; BP diastolic 42–60
[2017-12-04] MEDS: Piperacillin/Tazobactam 3.375 GM in D5W 110 ML IVPB SCH ×3 (06:00→22:01)
[2017-12-04] MEDS: dilTIAZem HCl 60mg tab ORAL SCH ×3 (06:01→18:00)
[2017-12-04 07:45] LABS: HEMATOCRIT 24.3 % (42.0-52.0); HEMOGLOBIN 7.9 G/DL (14.2-18.0); MEAN CORPUSCULAR VOLUME 92 FL (80-99); PLATELET COUNT 106 K/UL (150-450); RED BLOOD COUNT 2.63 M/UL (4.70-6.10); RED CELL DISTRIBUTION WIDTH 16.2 % (11.6-14.8); WHITE BLOOD COUNT 6.6 K/UL (4.8-10.8)
[2017-12-04] MEDS: Phospha 250 Neutral tab ORAL SCH (08:27)
[2017-12-04] MEDS: Pantoprazole Inj IVP SCH (08:27)
[2017-12-04] MEDS: Aspirin Baby 81mg NG SCH (08:27)
[2017-12-04] MEDS: Metoprolol 25mg tab ORAL SCH ×2 (08:27→20:35)
[2017-12-04] MEDS: Heparin 5000 units/ml inj SUBQ SCH ×2 (08:28→20:36)
[2017-12-04] MEDS: Vitamin A&D Oint 2oz Tube TOPIC SCH ×2 (08:28→20:36)
[2017-12-04] MEDS: Magnesium Oxide 400mg tab ORAL SCH ×3 (08:28→18:00)
[2017-12-04 08:58] LABS: ANION GAP 10 mmol/L (5-15); BLOOD UREA NITROGEN 18 mg/dL (7-18); CARBON DIOXIDE 26 MMOL/L (21-32); CHLORIDE 110 MMOL/L (98-107); CREATININE 1.2 MG/DL (0.55-1.30); POTASSIUM 4.4 MMOL/L (3.5-5.1); SODIUM 146 MMOL/L (136-145)
[2017-12-04 09:23] LABS: CALCIUM 8.2 MG/DL (8.5-10.1)
--- NOTE | 2017-12-04 12:29 | Cardiology Report ---
APPROVED REPORT EXAM: Two-dimensional and M-mode echocardiogram with Doppler and color Doppler. INDICATION Atrial Fibrillation M-Mode DIMENSIONS IVSd1.6 (0.7-1.1cm)Left Atrium (MM)4.3 (1.6-4.0cm) LVDd3.4 (3.5-5.6cm)Aortic Root3.4 (2.0-3.7cm) PWd2.2 (0.7-1.1cm)Aortic Cusp Exc.2.0 (1.5-2.0cm) LVDs2.2 (2.5-4.0cm) PWs2.6 cm Normal left ventricular chamber size, systolic function and wall motion. Left ventricular ejection fraction estimated to be 50 %. Severe left ventricular hypertrophy. Small to moderate circumferential pericardial effusion. Mild bi-atrial enlargement. Mild right ventricular enlargement. Mild focal aortic valve sclerosis with adequate cusp excursion. Mildly thickened mitral valve leaflets with normal excursion. Mild mitral annulus and aortic root calcification. Normal pulmonic valve structure. Normal tricuspid valve structure. IVC dilated at 3.0 cm without physiologic collapse, estimated RAP is 20 mmHg. Pacemaker wire present in the right side chambers. A color flow and spectral Doppler study was performed and revealed: Moderate aortic regurgitation. Trace mitral regurgitation. Mitral diastolic velocities suggest mild left ventricular dysfunction (Grade I ). Severe tricuspid regurgitation. Tricuspid systolic velocities suggests peak right ventricular systolic pressure of 125 mmHg, consistent with severe pulmonary hypertension. Mild pulmonic regurgitation present.
--- NOTE | 2017-12-04 13:13 | Pulmonology Progress Note ---
Assessment/Plan Assessment/Plan 1. Pneumonia, healthcare acquired due to s aureus 2. Pleural effusions. 3. Chronic systolic congestive heart failure. 4. Hypotension, due to septic shock, improved. 5. Elevation of troponin, possible acute coronary syndrome. 6. History of CVA with dysarthria and dysphagia. 7. Respiratory failure acute on chronic. 8. Septic shock. 9. Indwelling Reyes 10. GT 11. Anemia cont abx Not tolerating weaning, recommend trach stool OB Hgb better disc w RN Subjective ROS Limited/Unobtainable: Yes Allergies: Coded Allergies: VINCENT INHIBITORS (Verified Allergy, Mild, 08/06/17) SHELLFISH (Verified Allergy, Unknown, 07/01/11) Objective Last 24 Hour Vital Signs Date Time Temp Pulse Resp B/P (MAP) Pulse Ox O2 Delivery O2 Flow Rate FiO2 12/04/17 13:00 72 20 110/45 98 Mechanical Ventilator 30 12/04/17 13:00 71 22 30 12/04/17 12:00 30 12/04/17 12:00 69 107/42 12/04/17 12:00 98.5 69 19 107/42 100 Mechanical Ventilator 30 98.5 12/04/17 12:00 69 12/04/17 11:29 64 21 30 12/04/17 11:00 71 21 110/56 98 Mechanical Ventilator 30 12/04/17 10:00 75 21 115/60 98 Mechanical Ventilator 30 12/04/17 09:29 63 23 30 12/04/17 09:00 71 21 112/56 98 Mechanical Ventilator 30 12/04/17 08:27 71 120/45 12/04/17 08:00 98.5 72 19 120/50 99 Mechanical Ventilator 30 98.5 12/04/17 08:00 75 12/04/17 08:00 30 12/04/17 07:09 30 12/04/17 07:06 100 12/04/17 07:00 71 21 117/45 100 Mechanical Ventilator 32 12/04/17 06:59 72 20 30 12/04/17 06:01 76 122/45 12/04/17 06:00 68 18 132/44 100 Mechanical Ventilator 32 12/04/17 05:00 66 20 122/45 100 Mechanical Ventilator 32 12/04/17 04:57 66 20 30 12/04/17 04:00 98.6 72 21 130/58 100 Mechanical Ventilator 32 98.6 12/04/17 04:00 32 12/04/17 04:00 72 12/04/17 03:00 63 20 119/54 98 Mechanical Ventilator 32 12/04/17 02:58 65 22 30 12/04/17 02:00 63 21 124/46 96 Mechanical Ventilator 32 12/04/17 01:00 63 21 134/52 96 Mechanical Ventilator 32 12/04/17 01:00 65 21 30 12/04/17 00:00 98.3 62 20 129/58 95 Mechanical Ventilator 32 98.3 12/04/17 00:00 32 12/03/17 23:54 62 120/45 12/03/17 23:00 60 21 120/45 99 Mechanical Ventilator 32 12/03/17 22:55 61 22 30 12/03/17 22:00 61 21 126/54 94 Mechanical Ventilator 32 12/03/17 21:07 60 22 30 12/03/17 21:00 60 22 137/54 99 Mechanical Ventilator 32 12/03/17 20:31 67 127/54 12/03/17 20:00 63 12/03/17 20:00 32 12/03/17 20:00 98.6 63 18 125/51 100 Mechanical Ventilator 32 98.6 12/03/17 19:00 87 25 113/58 96 Mechanical Ventilator 32 12/03/17 18:56 66 23 30 12/03/17 18:03 60 127/60 12/03/17 18:00 74 24 118/62 97 Mechanical Ventilator 32 12/03/17 17:09 60 20 35 12/03/17 17:00 79 22 132/59 97 Mechanical Ventilator 32 12/03/17 16:00 68 12/03/17 16:00 32 18 16:00 32 18 16:00 98.2 72 20 122/63 96 Mechanical Ventilator 32 98.2 12/03/17 15:23 61 21 35 12/03/17 15:00 80 26 120/62 97 Mechanical Ventilator 32 12/03/17 14:00 72 25 127/60 97 Mechanical Ventilator 32 18 13:29 61 20 32 Intake and Output 12/03/18 18 19:00 07:00 Intake Total 890.0 ml 1407.5 ml Output Total 720 ml 630 ml Balance 170.0 ml 777.5 ml Intake Free Water 180 ml IV Total 110.0 ml 447.5 ml Tube Feeding 780 ml 780 ml Output Urine Total 720 ml 630 ml # Bowel Movements 1 1 Objective ETT General Appearance: no acute distress HEENT: atraumatic Respiratory/Chest: lungs clear Cardiovascular: normal rate Laboratory Tests 12/04/17 05:00: White Blood Count 6.6, Red Blood Count 2.63L, Hemoglobin 7.9L, Hematocrit 24.3L , Mean Corpuscular Volume 92, Mean Corpuscular Hemoglobin 30.0, Mean Corpuscular Hemoglobin Concent 32.4, Red Cell Distribution Width 16.2H, Platelet Count 106L, Mean Platelet Volume 9.9, Neutrophils (%) (Auto) , Lymphocytes (%) (Auto) , Monocytes (%) (Auto) , Eosinophils (%) (Auto) , Basophils (%) (Auto) , Differential Total Cells Counted 100, Neutrophils % ( Manual) 77H, Lymphocytes % (Manual) 9L, Monocytes % (Manual) 11H, Eosinophils % (Manual) 3, Basophils % (Manual) 0, Band Neutrophils 0, Platelet Estimate DecreasedL, Platelet Morphology Normal, Hypochromasia 1+, Anisocytosis 1+, Sodium Level 146H, Potassium Level 4.4, Chloride Level 110H, Carbon Dioxide Level 26, Anion Gap 10, Blood Urea Nitrogen 18, Creatinine 1.2, Estimat Glomerular Filtration Rate , Glucose Level 62L, Calcium Level 8.2L Current Medications Medications (Trade) Dose Ordered Sig/Scot Route PRN Reason Start Time Stop Time Status Last Admin Dose Admin Aspirin (ASA) 81 mg DAILY NG 11/26/17 09:00 12/26/17 08:59 12/04/17 08:27 Dextrose 1,000 ml @ 25 mls/hr Q24H IV 12/04/17 14:00 01/03/18 13:59 Diltiazem HCl (Cardizem) 60 mg EVERY 6 HOURS ORAL 11/25/17 18:00 12/25/17 17:59 12/04/17 06:01 Heparin Sodium (Porcine) (Heparin 5000 units/ml) 5,000 units EVERY 12 HOURS SUBQ 11/25/17 21:00 12/25/17 20:59 12/03/17 20:34 Iron Sucrose 100 mg/Sodium Chloride 60 ml @ 240 mls/hr BEDTIME IV 12/03/17 21:00 12/07/17 21:14 12/03/17 20:31 Magnesium Oxide (Mag-Ox 400mg) 400 mg THREE TIMES A DAY ORAL 11/26/17 18:00 12/26/17 17:59 12/04/17 08:28 Metoprolol Tartrate (Lopressor) 25 mg Q12HR ORAL 11/25/17 21:00 12/25/17 20:59 12/04/17 08:27 Midazolam HCl 100 ml @ 0 mls/hr Q24H PRN IVPB For Anxiety 11/30/17 22:00 12/07/17 21:59 12/02/17 21:52 Pantoprazole (Protonix) 40 mg DAILY IVP 11/26/17 10:15 12/26/17 10:14 12/04/17 08:27 Phosphorus (Phospha 250 Neutral) 250 mg DAILY ORAL 12/04/17 09:00 12/26/17 13:54 12/04/17 08:27 Piperacillin Sod/ Tazobactam Sod 3.375 gm/Dextrose 110 ml @ 27.5 mls/hr EVERY 8 HOURS IVPB 12/02/17 14:00 12/09/17 13:59 12/04/17 06:00 Risperidone (RisperDAL) 0.25 mg Q6H PRN ORAL Agitation 12/01/17 12:30 12/31/17 12:29 Vancomycin HCl (Vanco rx to dose) 1 ea DAILY PRN MISC Per rx protocol 11/25/17 17:30 12/25/17 17:29 Vancomycin HCl/ Dextrose 250 ml @ 166.667 mls/hr Q24H IVPB 11/26/17 20:00 12/05/17 19:59 12/03/17 19:49 Vitamin A/Vitamin D (A & D Oint) 1 applic EVERY 12 HOURS TOPIC 11/28/17 21:00 12/28/17 20:59 12/04/17 08:28 Liban Hammer MD Dec 04, 2017 13:12
--- NOTE | 2017-12-04 16:00 | General Progress Note ---
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 SNOMED: 530654276 (6) Pleural effusion ICD Codes: J90 - Pleural effusion, not elsewhere classified SNOMED: 18968137 (7) 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 ICD Codes: M51.26 - Other intervertebral disc displacement, lumbar region SNOMED: 16067236 (8) Urinary retention ICD Codes: R33.9 - Retention of urine, unspecified SNOMED: 206396030 (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) ICD Codes: D50.0 - Iron deficiency anemia secondary to blood loss (chronic) SNOMED: 10841065, 660973574 (10) Atrial fibrillation ICD Codes: I48.91 - Atrial fibrillation SNOMED: 84343480 Qualifiers: Qualified Codes: I48.2 - Chronic atrial fibrillation (11) Pneumonia ICD Codes: J18.9 - Pneumonia, unspecified organism SNOMED: 251719093 Qualifiers: Qualified Codes: J18.9 - Pneumonia, unspecified organism (12) Acute respiratory failure ICD Codes: J96.00 - Acute respiratory failure, unspecified whether with hypoxia or hypercapnia SNOMED: 05627643 Qualifiers: Qualified Codes: J96.01 - Acute respiratory failure with hypoxia (13) Hypernatremia ICD Codes: E87.0 - Hyperosmolality and hypernatremia SNOMED: 29831384 Assessment/Plan HC acquired pneumonia, possible aspiration, continue vanco and zosyn, mrsa pneumonia, vre colonized, enterococcal uti chf, resume diuretics as hypotension resolved-lasix reorder 11/29 as + fluid bal , hold now as likely volume depleted parox afib , continue meds, replaceK hypernatremia give free water improving, reduce iv d5w anemia well tolerated, order venofer , trend lab high risk, daughter aware, full code not weaning, may need trach--call to daughter icu time 35 min Subjective ROS Limited/Unobtainable: Yes Allergies: Coded Allergies: VINCENT INHIBITORS (Verified Allergy, Mild, 08/06/17) SHELLFISH (Verified Allergy, Unknown, 07/01/11) Subjective alert weak Objective Last 24 Hour Vital Signs Date Time Temp Pulse Resp B/P (MAP) Pulse Ox O2 Delivery O2 Flow Rate FiO2 12/04/17 14:52 68 27 30 12/04/17 13:00 72 20 110/45 98 Mechanical Ventilator 30 12/04/17 13:00 71 22 30 12/04/17 12:00 30 12/04/17 12:00 69 107/42 12/04/17 12:00 98.5 69 19 107/42 100 Mechanical Ventilator 30 98.5 12/04/17 12:00 69 12/04/17 11:29 64 21 30 12/04/17 11:00 71 21 110/56 98 Mechanical Ventilator 30 12/04/17 10:00 75 21 115/60 98 Mechanical Ventilator 30 12/04/17 09:29 63 23 30 12/04/17 09:00 71 21 112/56 98 Mechanical Ventilator 30 12/04/17 08:27 71 120/45 12/04/17 08:00 98.5 72 19 120/50 99 Mechanical Ventilator 30 98.5 12/04/17 08:00 75 12/04/17 08:00 30 12/04/17 07:09 30 12/04/17 07:06 100 12/04/17 07:00 71 21 117/45 100 Mechanical Ventilator 32 12/04/17 06:59 72 20 30 12/04/17 06:01 76 122/45 12/04/17 06:00 68 18 132/44 100 Mechanical Ventilator 32 12/04/17 05:00 66 20 122/45 100 Mechanical Ventilator 32 12/04/17 04:57 66 20 30 12/04/17 04:00 98.6 72 21 130/58 100 Mechanical Ventilator 32 98.6 12/04/17 04:00 32 12/04/17 04:00 72 12/04/17 03:00 63 20 119/54 98 Mechanical Ventilator 32 12/04/17 02:58 65 22 30 3/21/18 02:00 63 21 124/46 96 Mechanical Ventilator 32 12/04/17 01:00 63 21 134/52 96 Mechanical Ventilator 32 12/04/17 01:00 65 21 30 12/04/17 00:00 98.3 62 20 129/58 95 Mechanical Ventilator 32 98.3 12/04/17 00:00 32 12/03/17 23:54 62 120/45 12/03/17 23:00 60 21 120/45 99 Mechanical Ventilator 32 12/03/17 22:55 61 22 30 12/03/17 22:00 61 21 126/54 94 Mechanical Ventilator 32 12/03/17 21:07 60 22 30 12/03/17 21:00 60 22 137/54 99 Mechanical Ventilator 32 12/03/17 20:31 67 127/54 12/03/17 20:00 63 12/03/17 20:00 32 12/03/17 20:00 98.6 63 18 125/51 100 Mechanical Ventilator 32 98.6 12/03/17 19:00 87 25 113/58 96 Mechanical Ventilator 32 12/03/17 18:56 66 23 30 12/03/17 18:03 60 127/60 12/03/17 18:00 74 24 118/62 97 Mechanical Ventilator 32 12/03/17 17:09 60 20 35 12/03/17 17:00 79 22 132/59 97 Mechanical Ventilator 32 12/03/17 16:00 68 12/03/17 16:00 32 12/03/17 16:00 32 12/03/17 16:00 98.2 72 20 122/63 96 Mechanical Ventilator 32 98.2 Intake and Output 12/03/17 12/04/17 19:00 07:00 Intake Total 890.0 ml 1407.5 ml Output Total 720 ml 630 ml Balance 170.0 ml 777.5 ml Intake Free Water 180 ml IV Total 110.0 ml 447.5 ml Tube Feeding 780 ml 780 ml Output Urine Total 720 ml 630 ml # Bowel Movements 1 1 Laboratory Tests 12/04/17 05:00: White Blood Count 6.6, Red Blood Count 2.63L, Hemoglobin 7.9L, Hematocrit 24.3L , Mean Corpuscular Volume 92, Mean Corpuscular Hemoglobin 30.0, Mean Corpuscular Hemoglobin Concent 32.4, Red Cell Distribution Width 16.2H, Platelet Count 106L, Mean Platelet Volume 9.9, Neutrophils (%) (Auto) , Lymphocytes (%) (Auto) , Monocytes (%) (Auto) , Eosinophils (%) (Auto) , Basophils (%) (Auto) , Differential Total Cells Counted 100, Neutrophils % ( Manual) 77H, Lymphocytes % (Manual) 9L, Monocytes % (Manual) 11H, Eosinophils % (Manual) 3, Basophils % (Manual) 0, Band Neutrophils 0, Platelet Estimate DecreasedL, Platelet Morphology Normal, Hypochromasia 1+, Anisocytosis 1+, Sodium Level 146H, Potassium Level 4.4, Chloride Level 110H, Carbon Dioxide Level 26, Anion Gap 10, Blood Urea Nitrogen 18, Creatinine 1.2, Estimat Glomerular Filtration Rate , Glucose Level 62L, Calcium Level 8.2L Height (Feet): 6 Height (Inches): 0.00 Weight (Pounds): 136 General Appearance: alert, mild distress EENT: normal ENT inspection Neck: normal alignment Cardiovascular: regular rhythm Respiratory/Chest: rhonchi - bilaterally Abdomen: non tender, soft Edema: 1+ Arm (L), 1+ Arm (R), no edema noted Leg (L), no edema noted Leg (R), no edema noted Pedal (L), no edema noted Pedal (R), no edema noted Generalized Neurologic: cotton acreage measurer II-XII grossly normal Objective alert on HODAN Dior Dec 04, 2017 16:00
[2017-12-04] MEDS: Vancomycin 1250mg/D5W 250ml IVPB SCH (20:28)
[2017-12-04] MEDS: Iron Sucrose 100 MG in NS 55 ML IV SCH (20:34)
[2017-12-04] MEDS ORDERED: Tubing IV Secondary IV ONE (22:57)
[2017-12-04] MEDS ORDERED: NS 275ml ONE (22:57)
[2017-12-05] VITALS (24 sets, daily range): BP systolic 97–141; BP diastolic 41–90
[2017-12-05] MEDS: dilTIAZem HCl 60mg tab ORAL SCH ×5 (00:13→23:50)
--- NOTE | 2017-12-05 05:08 | Progress Note ---
DATE: 12/04/2017 CARDIOLOGY PROGRESS NOTE SUBJECTIVE: The patient's condition remains critical. Prognosis guarded. The patient intubated orally in the intensive care unit on full ventilator support. Ongoing efforts at [place]; however, he has failed so far. Tracheostomy is being considered. Monitor atrial fibrillation with ventricular pacing, rate controlled. OBJECTIVE: VITAL SIGNS: Blood pressure 110/45, pulse 72, respirations 20, and afebrile. LUNGS: Coarse breath sounds. Scattered rhonchi. HEART: Irregularly irregular rhythm. Normal S1, paradoxically split S2. No new murmur. ABDOMEN: Soft, nontender. EXTREMITIES: No edema. LABORATORY DATA: Today, white count 6.6, hemoglobin 7.9. Potassium 4.4, sodium 146, bicarb 26, BUN 18, and creatinine 1.2. Iron saturation is 15%. IMPRESSION: 1. Sepsis with recurrent shock. 2. Dehydration with hypernatremia. 3. Paroxysmal atrial fibrillation, permanent pacemaker. 4. Chronic diastolic congestive heart failure. 5. Anemia due to iron deficiency and chronic disease. 6. Severe protein-calorie malnutrition. 7. Respiratory failure. 8. Healthcare-acquired pneumonia. PLAN: 1. Continue weaning efforts. 2. Free water replacement. 3. Iron replacement. 4. Antimicrobials. 5. No diuretics at this time. 6. Maintain current cardiovascular medication, otherwise without change. 7. No plan for full anticoagulation due to prior bleeding risk. Chay Godinez M.D. DR: ZAKIYA JOB#: [id number] CC:
[2017-12-05] MEDS: Piperacillin/Tazobactam 3.375 GM in D5W 110 ML IVPB SCH ×3 (05:36→21:37)
[2017-12-05 05:41] LABS: ANION GAP 9 mmol/L (5-15); BLOOD UREA NITROGEN 16 mg/dL (7-18); CALCIUM 7.9 MG/DL (8.5-10.1); CARBON DIOXIDE 26 MMOL/L (21-32); CHLORIDE 109 MMOL/L (98-107); CREATININE 1.1 MG/DL (0.55-1.30); SODIUM 144 MMOL/L (136-145)
[2017-12-05 05:46] LABS: HEMATOCRIT 23.3 % (42.0-52.0); HEMOGLOBIN 7.5 G/DL (14.2-18.0); INR 1.2 (0.9-1.1); MEAN CORPUSCULAR VOLUME 94 FL (80-99); PLATELET COUNT 153 K/UL (150-450); RED BLOOD COUNT 2.49 M/UL (4.70-6.10); RED CELL DISTRIBUTION WIDTH 16.8 % (11.6-14.8); WHITE BLOOD COUNT 6.2 K/UL (4.8-10.8)
[2017-12-05] MEDS: Aspirin Baby 81mg NG SCH (08:08)
[2017-12-05] MEDS: Phospha 250 Neutral tab ORAL SCH (08:08)
[2017-12-05] MEDS: Pantoprazole Inj IVP SCH (08:09)
[2017-12-05] MEDS: Magnesium Oxide 400mg tab ORAL SCH ×3 (08:09→18:23)
[2017-12-05] MEDS: Metoprolol 25mg tab ORAL SCH ×2 (08:10→21:15)
[2017-12-05] MEDS: Vitamin A&D Oint 2oz Tube TOPIC SCH ×2 (08:19→21:16)
[2017-12-05] MEDS: Heparin 5000 units/ml inj SUBQ SCH ×2 (09:00→21:16)
--- NOTE | 2017-12-05 13:03 | General Progress Note ---
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 SNOMED: 306515212 (6) Pleural effusion ICD Codes: J90 - Pleural effusion, not elsewhere classified SNOMED: 13452103 (7) 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 ICD Codes: M51.26 - Other intervertebral disc displacement, lumbar region SNOMED: 97353201 (8) Urinary retention ICD Codes: R33.9 - Retention of urine, unspecified SNOMED: 457806487 (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) ICD Codes: D50.0 - Iron deficiency anemia secondary to blood loss (chronic) SNOMED: 70423392, 782727531 (10) Atrial fibrillation ICD Codes: I48.91 - Atrial fibrillation SNOMED: 55016961 Qualifiers: Qualified Codes: I48.2 - Chronic atrial fibrillation (11) Pneumonia ICD Codes: J18.9 - Pneumonia, unspecified organism SNOMED: 801853499 Qualifiers: Qualified Codes: J18.9 - Pneumonia, unspecified organism (12) Acute respiratory failure ICD Codes: J96.00 - Acute respiratory failure, unspecified whether with hypoxia or hypercapnia SNOMED: 25995997 Qualifiers: Qualified Codes: J96.01 - Acute respiratory failure with hypoxia (13) Hypernatremia ICD Codes: E87.0 - Hyperosmolality and hypernatremia SNOMED: 79903441 Assessment/Plan HC acquired pneumonia, possible aspiration, continue vanco and zosyn, mrsa pneumonia, vre colonized, enterococcal uti chf, resume diuretics as hypotension resolved-lasix reorder 11/29 as + fluid bal , hold now as likely volume depleted parox afib , continue meds, replaceK hypernatremia give free water improving, reduce iv d5w anemia well tolerated, order venofer , trend lab high risk, daughter aware, full code not weaning, may need trach--call to daughter, she gives consent. n Dr. Anali Green to schedule trach. Anemia and CAD warrents transfusion. Mild high gastric residuals, no nausea, d/w nurse icu time 35 min Subjective ROS Limited/Unobtainable: Yes Allergies: Coded Allergies: VINCENT INHIBITORS (Verified Allergy, Mild, 08/06/17) SHELLFISH (Verified Allergy, Unknown, 07/01/11) Subjective alert weak Objective Last 24 Hour Vital Signs Date Time Temp Pulse Resp B/P (MAP) Pulse Ox O2 Delivery O2 Flow Rate FiO2 12/05/17 12:00 68 12/05/17 12:00 72 20 114/47 100 Mechanical Ventilator 30 12/05/17 11:00 67 20 104/46 100 Mechanical Ventilator 30 12/05/17 10:30 70 18 30 12/05/17 10:05 68 18 30 12/05/17 10:03 100 12/05/17 10:00 66 20 120/52 100 Mechanical Ventilator 30 12/05/17 09:00 66 20 120/49 100 Mechanical Ventilator 30 12/05/17 08:40 65 23 30 12/05/17 08:10 73 122/56 12/05/17 08:00 64 12/05/17 08:00 30 12/05/17 08:00 98.9 73 18 122/56 100 Mechanical Ventilator 30 98.9 12/05/17 07:00 64 18 101/45 100 Mechanical Ventilator 30 12/05/17 06:36 65 19 30 12/05/17 06:00 68 18 104/52 99 Mechanical Ventilator 30 12/05/17 05:37 63 108/51 12/05/17 05:20 69 19 30 12/05/17 05:00 66 18 108/51 100 Mechanical Ventilator 30 12/05/17 04:00 70 12/05/17 04:00 30 12/05/17 04:00 98.2 70 19 115/61 100 Mechanical Ventilator 30 98.2 12/05/17 03:00 69 19 120/48 100 Mechanical Ventilator 30 12/05/17 02:22 70 20 30 12/05/17 02:00 72 21 110/48 100 Mechanical Ventilator 30 3/22/18 01:14 68 20 30 12/05/17 01:00 67 21 121/50 100 Mechanical Ventilator 30 12/05/17 00:13 71 112/41 12/05/17 00:00 30 12/05/17 00:00 71 12/05/17 00:00 98.6 71 20 112/41 100 Mechanical Ventilator 30 98.6 12/04/17 23:07 69 21 30 12/04/17 23:00 66 20 117/59 99 Mechanical Ventilator 30 12/04/17 22:00 67 22 117/50 100 Mechanical Ventilator 30 12/04/17 21:00 64 22 30 12/04/17 21:00 65 21 130/53 100 Mechanical Ventilator 30 12/04/17 20:35 65 111/54 12/04/17 20:00 69 12/04/17 20:00 30 12/04/17 20:00 98.3 69 22 111/54 99 Mechanical Ventilator 30 98.3 12/04/17 19:16 79 22 30 12/04/17 19:00 72 20 110/53 99 Mechanical Ventilator 30 12/04/17 18:00 70 109/49 12/04/17 18:00 70 20 105/55 97 Mechanical Ventilator 30 12/04/17 17:00 69 18 119/50 98 Mechanical Ventilator 30 12/04/17 16:56 70 18 30 12/04/17 16:00 73 12/04/17 16:00 98.7 71 19 109/49 97 Mechanical Ventilator 30 98.7 12/04/17 16:00 30 12/04/17 15:00 70 20 107/45 98 Mechanical Ventilator 30 12/04/17 14:52 68 27 30 12/04/17 14:00 69 18 112/50 98 Mechanical Ventilator 30 Intake and Output 12/04/17 12/05/17 19:00 07:00 Intake Total 1041.0 ml 1752.5 ml Output Total 510 ml 580 ml Balance 531.0 ml 1172.5 ml Intake Free Water 250 ml IV Total 261.0 ml 722.5 ml Tube Feeding 780 ml 780 ml Output Urine Total 510 ml 580 ml # Bowel Movements 1 Laboratory Tests 12/05/17 05:00: White Blood Count 6.2, Red Blood Count 2.49L, Hemoglobin 7.5L, Hematocrit 23.3L , Mean Corpuscular Volume 94, Mean Corpuscular Hemoglobin 30.1, Mean Corpuscular Hemoglobin Concent 32.2, Red Cell Distribution Width 16.8H, Platelet Count 153, Mean Platelet Volume 9.8, Neutrophils (%) (Auto) , Lymphocytes (%) (Auto) , Monocytes (%) (Auto) , Eosinophils (%) (Auto) , Basophils (%) (Auto) , Differential Total Cells Counted 100, Neutrophils % ( Manual) 70, Lymphocytes % (Manual) 17L, Monocytes % (Manual) 7, Eosinophils % ( Manual) 4H, Basophils % (Manual) 2, Band Neutrophils 0, Nucleated Red Blood Cells 2, Platelet Estimate DecreasedL, Platelet Morphology Normal, Hypochromasia 1+, Anisocytosis 1+, Acanthocytes 1+, Schistocytes 1+, Prothrombin Time 12.3H, Prothromb Time International Ratio 1.2H, Sodium Level 144, Potassium Level 4.0, Chloride Level 109H, Carbon Dioxide Level 26, Anion Gap 9, Blood Urea Nitrogen 16, Creatinine 1.1, Estimat Glomerular Filtration Rate , Glucose Level 71L, Calcium Level 7.9L Height (Feet): 6 Height (Inches): 0.00 Weight (Pounds): 133 General Appearance: alert, mild distress EENT: normal ENT inspection Neck: non-tender, normal alignment Cardiovascular: normal rate, regular rhythm Respiratory/Chest: rhonchi - bilaterally Abdomen: non tender, distended Pelvis: no masses Edema: 1+ Arm (L), 1+ Arm (R) Neurologic: neon sign erector II-XII grossly normal Objective alert on vent HODAN GAYTAN Dec 05, 2017 13:03
--- NOTE | 2017-12-05 15:37 | Pulmonology Progress Note ---
Assessment/Plan Assessment/Plan 1. Pneumonia, healthcare acquired due to s aureus 2. Pleural effusions. 3. Chronic systolic congestive heart failure. 4. Hypotension, due to septic shock, resolved 5. Elevation of troponin, possible acute coronary syndrome. 6. History of CVA with dysarthria and dysphagia. 7. Respiratory failure acute on chronic. 8. Septic shock, resolved 9. Indwelling Reyes 10. GT 11. Anemia cont abx Not tolerating weaning, scheduled trach Hgb low, transfuse disc w RN check stool OB Subjective ROS Limited/Unobtainable: Yes Allergies: Coded Allergies: VINCENT INHIBITORS (Verified Allergy, Mild, 08/06/17) SHELLFISH (Verified Allergy, Unknown, 07/01/11) Objective Last 24 Hour Vital Signs Date Time Temp Pulse Resp B/P (MAP) Pulse Ox O2 Delivery O2 Flow Rate FiO2 12/05/17 14:34 76 26 30 12/05/17 13:40 78 25 30 12/05/17 13:00 74 20 136/48 100 Mechanical Ventilator 30 12/05/17 12:00 68 12/05/17 12:00 30 12/05/17 12:00 74 136/48 12/05/17 12:00 72 20 114/47 100 Mechanical Ventilator 30 12/05/17 11:00 67 20 104/46 100 Mechanical Ventilator 30 12/05/17 10:30 70 18 30 12/05/17 10:05 68 18 30 12/05/17 10:03 100 12/05/17 10:00 66 20 120/52 100 Mechanical Ventilator 30 12/05/17 09:00 66 20 120/49 100 Mechanical Ventilator 30 12/05/17 08:40 65 23 30 12/05/17 08:10 73 122/56 12/05/17 08:00 64 12/05/17 08:00 30 12/05/17 08:00 98.9 73 18 122/56 100 Mechanical Ventilator 30 98.9 12/05/17 07:00 64 18 101/45 100 Mechanical Ventilator 30 12/05/17 06:36 65 19 30 12/05/17 06:00 68 18 104/52 99 Mechanical Ventilator 30 12/05/17 05:37 63 108/51 12/05/17 05:20 69 19 30 12/05/17 05:00 66 18 108/51 100 Mechanical Ventilator 30 12/05/17 04:00 70 12/05/17 04:00 30 12/05/17 04:00 98.2 70 19 115/61 100 Mechanical Ventilator 30 98.2 12/05/17 03:00 69 19 120/48 100 Mechanical Ventilator 30 12/05/17 02:22 70 20 30 12/05/17 02:00 72 21 110/48 100 Mechanical Ventilator 30 12/05/17 01:14 68 20 30 12/05/17 01:00 67 21 121/50 100 Mechanical Ventilator 30 12/05/17 00:13 71 112/41 12/05/17 00:00 30 12/05/17 00:00 71 12/05/17 00:00 98.6 71 20 112/41 100 Mechanical Ventilator 30 98.6 12/04/17 23:07 69 21 30 12/04/17 23:00 66 20 117/59 99 Mechanical Ventilator 30 12/04/17 22:00 67 22 117/50 100 Mechanical Ventilator 30 12/04/17 21:00 64 22 30 12/04/17 21:00 65 21 130/53 100 Mechanical Ventilator 30 12/04/17 20:35 65 111/54 12/04/17 20:00 69 12/04/17 20:00 30 12/04/17 20:00 98.3 69 22 111/54 99 Mechanical Ventilator 30 98.3 12/04/17 19:16 79 22 30 12/04/17 19:00 72 20 110/53 99 Mechanical Ventilator 30 12/04/17 18:00 70 109/49 12/04/17 18:00 70 20 105/55 97 Mechanical Ventilator 30 12/04/17 17:00 69 18 119/50 98 Mechanical Ventilator 30 12/04/17 16:56 70 18 30 12/04/17 16:00 73 12/04/17 16:00 98.7 71 19 109/49 97 Mechanical Ventilator 30 98.7 12/04/17 16:00 30 Intake and Output 12/04/17 12/05/17 19:00 07:00 Intake Total 1041.0 ml 1752.5 ml Output Total 510 ml 580 ml Balance 531.0 ml 1172.5 ml Intake Free Water 250 ml IV Total 261.0 ml 722.5 ml Tube Feeding 780 ml 780 ml Output Urine Total 510 ml 580 ml # Bowel Movements 1 Objective ETT General Appearance: no acute distress HEENT: atraumatic Respiratory/Chest: rhonchi Cardiovascular: regular rhythm Abdomen: soft, non tender Microbiology Date/Time Source Procedure Growth Status 12/03/17 04:30 Penis Genital Culture - Preliminary Luanne Albicans Usual Vaginal Nita Resulted Laboratory Tests 12/05/17 05:00: White Blood Count 6.2, Red Blood Count 2.49L, Hemoglobin 7.5L, Hematocrit 23.3L , Mean Corpuscular Volume 94, Mean Corpuscular Hemoglobin 30.1, Mean Corpuscular Hemoglobin Concent 32.2, Red Cell Distribution Width 16.8H, Platelet Count 153, Mean Platelet Volume 9.8, Neutrophils (%) (Auto) , Lymphocytes (%) (Auto) , Monocytes (%) (Auto) , Eosinophils (%) (Auto) , Basophils (%) (Auto) , Differential Total Cells Counted 100, Neutrophils % ( Manual) 70, Lymphocytes % (Manual) 17L, Monocytes % (Manual) 7, Eosinophils % ( Manual) 4H, Basophils % (Manual) 2, Band Neutrophils 0, Nucleated Red Blood Cells 2, Platelet Estimate DecreasedL, Platelet Morphology Normal, Hypochromasia 1+, Anisocytosis 1+, Acanthocytes 1+, Schistocytes 1+, Prothrombin Time 12.3H, Prothromb Time International Ratio 1.2H, Sodium Level 144, Potassium Level 4.0, Chloride Level 109H, Carbon Dioxide Level 26, Anion Gap 9, Blood Urea Nitrogen 16, Creatinine 1.1, Estimat Glomerular Filtration Rate , Glucose Level 71L, Calcium Level 7.9L Current Medications Medications (Trade) Dose Ordered Sig/Scot Route PRN Reason Start Time Stop Time Status Last Admin Dose Admin Acetaminophen (Tylenol) 650 mg Q4H PRN ORAL Mild Pain/Temp > 100.5 12/05/17 15:30 01/04/18 15:29 Aspirin (ASA) 81 mg DAILY NG 11/26/17 09:00 12/26/17 08:59 12/05/17 08:08 Dextrose 1,000 ml @ 25 mls/hr Q24H IV 12/04/17 14:00 01/03/18 13:59 12/05/17 13:50 Diltiazem HCl (Cardizem) 60 mg EVERY 6 HOURS ORAL 11/25/17 18:00 12/25/17 17:59 12/05/17 05:37 Heparin Sodium (Porcine) (Heparin 5000 units/ml) 5,000 units EVERY 12 HOURS SUBQ 11/25/17 21:00 12/25/17 20:59 12/04/17 20:36 Iron Sucrose 100 mg/Sodium Chloride 60 ml @ 240 mls/hr BEDTIME IV 12/03/17 21:00 12/07/17 21:14 12/04/17 20:34 Magnesium Oxide (Mag-Ox 400mg) 400 mg THREE TIMES A DAY ORAL 11/26/17 18:00 12/26/17 17:59 12/05/17 13:45 Metoprolol Tartrate (Lopressor) 25 mg Q12HR ORAL 11/25/17 21:00 12/25/17 20:59 12/05/17 08:10 Pantoprazole (Protonix) 40 mg DAILY IVP 11/26/17 10:15 12/26/17 10:14 12/05/17 08:09 Phosphorus (Phospha 250 Neutral) 250 mg DAILY ORAL 12/04/17 09:00 12/26/17 13:54 12/05/17 08:08 Piperacillin Sod/ Tazobactam Sod 3.375 gm/Dextrose 110 ml @ 27.5 mls/hr EVERY 8 HOURS IVPB 12/02/17 14:00 12/09/17 13:59 12/05/17 05:36 Risperidone (RisperDAL) 0.25 mg Q6H PRN ORAL Agitation 12/01/17 12:30 12/31/17 12:29 Vancomycin HCl (Vanco rx to dose) 1 ea DAILY PRN MISC Per rx protocol 11/25/17 17:30 12/25/17 17:29 Vancomycin HCl/ Dextrose 250 ml @ 166.667 mls/hr Q24H IVPB 11/26/17 20:00 12/05/17 19:59 12/04/17 20:28 Vitamin A/Vitamin D (A & D Oint) 1 applic EVERY 12 HOURS TOPIC 11/28/17 21:00 12/28/17 20:59 12/05/17 08:19 Liban Hammer MD Dec 05, 2017 15:37
[2017-12-05] MEDS ORDERED: NS 500ML ONE (17:34)
[2017-12-05] MEDS ORDERED: NS 275ml ONE (17:34)
[2017-12-05] MEDS ORDERED: D5W 275ml ONE (17:34)
--- NOTE | 2017-12-05 19:15 | Wound Care Consultation ---
Wound Assessment Wound Assessment #1: Wound Number: 1 Wound Present on Admission: No New Wound: Yes Status Change of Wound: No Wound Location Body Site Modif: left Wound Location Body Site: buttocks Wound Type: pressure ulcer Krissy Test: Does not Krissy Pressure Ulcer Stage: II Wound Thickness: Partial Thickness Wound Length: 1.0 Wound Width: 1.5 Wound Depth: less than 0.1 Percent of Wound [place]/Red: 100 Wound Drainage Amount: None Wound Drainage Odor: None/Absent Tissue Surrounding Wound: Wound General Appearance: Reddened, Draining Wound Assessment #2: Wound Number: 2 Wound Present on Admission: No New Wound: Yes Status Change of Wound: No Wound Location Body Site Modif: right Wound Location Body Site: buttocks Wound Type: pressure ulcer Krissy Test: Does not Krissy Pressure Ulcer Stage: II Wound Thickness: Partial Thickness Wound Length: 2.0 Wound Width: 2.0 Wound Depth: less than 0.1 Percent of Wound [place]/Red: 100 Wound Drainage Description: Serosanguineous Wound Drainage Amount: Scant Wound Drainage Odor: None/Absent Tissue Surrounding Wound: Erythemic Wound General Appearance: Reddened, Draining Wound Assessment #3: Wound Number: 3 Wound Present on Admission: No New Wound: Yes Status Change of Wound: No Wound Location Body Site Modif: mid Wound Location Body Site: sacral Wound Type: pressure ulcer Krissy Test: Does not Krissy Pressure Ulcer Stage: II Wound Thickness: Partial Thickness Wound Length: 2.5 Wound Width: 2.5 Wound Depth: less than 0.1 Percent of Wound [place]/Red: 100 Wound Drainage Description: Serosanguineous Wound Drainage Amount: Scant Wound Drainage Odor: None/Absent Tissue Surrounding Wound: Erythemic Wound General Appearance: Reddened, Draining Wound Comment #1 Sacral stage II pressure ulcer, increase in size from the last time I saw this Pt. wound bed 100% pink in color. #2 Left buttock stage II pressure ulcer #3 Right buttock stage II pressure ulcer Recommendation -Local wound care per protocol -Keep clean and dry -Optimize nutrition -Turn and reposition -Heel protector on both heels -Offload both heels -Low air loss mattress -Assess and f/u accordingly for any changes TAMMIE DONALDSON RN Dec 05, 2017 19:15
[2017-12-05] MEDS: Vancomycin 1250mg/D5W 250ml IVPB SCH (20:19)
[2017-12-05] MEDS: Iron Sucrose 100 MG in NS 55 ML IV SCH (21:16)
--- NOTE | 2017-12-05 23:46 | Progress Note ---
DATE: 12/05/2017 CARDIOLOGY PROGRESS NOTE SUBJECTIVE: The patient remains in the intensive care unit. Orally intubated. Mechanically ventilated. Failing weaning trials. Condition remains critical. Prognosis guarded. Trach is planned if no progress over the next 24 to 48 hours. The patient is getting a blood cell transfusion for continued drop in hemoglobin in the setting of coronary disease and respiratory failure with history of congestive heart failure. OBJECTIVE: VITAL SIGNS: Blood pressure is 114/47, pulse 72, and respiratory rate 20. Monitor, atrial fib, ventricular paced. LUNGS: Coarse breath sounds. Few rhonchi. HEART: Irregularly irregular rhythm. Normal S1, S2. A 1/6 systolic apical murmur. ABDOMEN: Soft. G-tube intact. EXTREMITIES: Trace edema. LABORATORY DATA: White count 6.2 and hemoglobin 7.5. Sodium 144, potassium 4.0, bicarb 26, BUN 16, and creatinine 1.1. IMPRESSION: 1. Respiratory failure. 2. Healthcare-acquired pneumonia. 3. Failure to wean. 4. Paroxysmal atrial fibrillation. 5. Permanent pacemaker. 6. Acute on chronic diastolic and systolic congestive heart failure. 7. Cerebrovascular disease with dementia. 8. Anemia. PLAN: 1. Agree with transfusion. 2. Continue weaning efforts. 3. Trach will likely be required. 4. IV Venofer. 5. Antimicrobials. 6. Respiratory hygiene. 7. No diuresis at this time. 8. Maintain adequate free water replacement to avoid recurrent dehydration and hypernatremia. Chay Godinez M.D. DR: PHILLIP JOB#: [id number] CC:
[2017-12-06] VITALS (22 sets, daily range): BP systolic 90–163; BP diastolic 40–74
[2017-12-06] MEDS: Piperacillin/Tazobactam 3.375 GM in D5W 110 ML IVPB SCH ×3 (05:57→23:01)
[2017-12-06] MEDS: dilTIAZem HCl 60mg tab ORAL SCH ×4 (05:57→23:12)
[2017-12-06] MEDS: Aspirin Baby 81mg NG SCH (09:02)
[2017-12-06] MEDS: Phospha 250 Neutral tab ORAL SCH (09:02)
[2017-12-06] MEDS: Magnesium Oxide 400mg tab ORAL SCH ×3 (09:02→18:50)
[2017-12-06] MEDS: Pantoprazole Inj IVP SCH (09:02)
[2017-12-06] MEDS: Vitamin A&D Oint 2oz Tube TOPIC SCH ×2 (09:03→21:18)
[2017-12-06] MEDS: Heparin 5000 units/ml inj SUBQ SCH ×2 (09:23→21:22)
[2017-12-06] MEDS: Metoprolol 25mg tab ORAL SCH ×2 (09:27→21:18)
--- NOTE | 2017-12-06 14:12 | Pulmonology Progress Note ---
Assessment/Plan Assessment/Plan 1. Pneumonia, healthcare acquired due to s aureus 2. Pleural effusions. 3. Chronic systolic congestive heart failure. 4. Hypotension, due to septic shock, resolved 5. Elevation of troponin, possible acute coronary syndrome. 6. History of CVA with dysarthria and dysphagia. 7. Respiratory failure acute on chronic. 8. Septic shock, resolved 9. Indwelling Reyes 10. GT 11. Anemia cont abx Tolerating weaning better now, scheduled trach Tues 12/10 hope to extubate before then disc w RN Subjective ROS Limited/Unobtainable: Yes Constitutional: Reports: fever - low grade Allergies: Coded Allergies: VINCENT INHIBITORS (Verified Allergy, Mild, 08/06/17) SHELLFISH (Verified Allergy, Unknown, 07/01/11) Objective Last 24 Hour Vital Signs Date Time Temp Pulse Resp B/P (MAP) Pulse Ox O2 Delivery O2 Flow Rate FiO2 12/06/17 12:43 63 37 30 12/06/17 12:00 60 26 109/43 99 Mechanical Ventilator 30 12/06/17 12:00 63 109/43 12/06/17 12:00 30 12/06/17 11:06 63 28 30 12/06/17 11:00 60 28 104/54 100 Mechanical Ventilator 30 12/06/17 10:09 99.2 12/06/17 10:00 98.9 61 28 108/54 100 Mechanical Ventilator 30 98.9 12/06/17 09:27 60 122/49 12/06/17 09:10 99.2 12/06/17 09:00 61 18 122/49 100 Mechanical Ventilator 30 12/06/17 08:34 61 23 30 12/06/17 08:32 100 12/06/17 08:00 30 12/06/17 08:00 60 12/06/17 07:00 61 18 90/40 100 Mechanical Ventilator 30 12/06/17 06:46 61 23 30 12/06/17 06:00 60 16 110/74 100 Mechanical Ventilator 30 12/06/17 05:57 61 112/50 12/06/17 05:16 60 18 30 12/06/17 05:00 61 16 100/74 100 Mechanical Ventilator 30 12/06/17 04:00 99.2 60 16 110/48 100 Mechanical Ventilator 30 99.2 12/06/17 04:00 30 12/06/17 04:00 66 12/06/17 03:24 61 17 30 12/06/17 03:00 60 16 106/48 100 Mechanical Ventilator 30 12/06/17 02:00 60 14 105/43 100 Mechanical Ventilator 30 12/06/17 01:17 60 14 30 12/06/17 01:00 60 15 111/55 100 Mechanical Ventilator 30 12/06/17 00:00 60 12/06/17 00:00 30 12/06/17 00:00 99.6 60 15 113/48 100 Mechanical Ventilator 30 99.6 12/05/17 23:50 60 104/82 12/05/17 23:04 62 20 30 12/05/17 23:00 62 17 110/46 100 Mechanical Ventilator 30 12/05/17 22:00 60 16 97/46 100 Mechanical Ventilator 30 12/05/17 21:19 67 20 30 12/05/17 21:15 65 109/48 12/05/17 21:00 64 17 107/53 99 Mechanical Ventilator 30 12/05/17 20:00 30 12/05/17 20:00 67 12/05/17 20:00 98.6 67 17 141/90 99 Mechanical Ventilator 30 98.6 12/05/17 19:25 75 17 30 12/05/17 19:00 100 19 123/53 100 Mechanical Ventilator 30 12/05/17 18:24 98.8 12/05/17 18:00 65 101/52 12/05/17 18:00 98.8 65 19 101/52 100 Mechanical Ventilator 30 98.8 12/05/17 17:00 66 19 113/57 100 Mechanical Ventilator 30 12/05/17 16:38 60 16 30 12/05/17 16:00 64 12/05/17 16:00 30 12/05/17 16:00 98.5 68 19 111/43 100 Mechanical Ventilator 30 98.5 12/05/17 15:00 70 20 108/43 100 Mechanical Ventilator 30 12/05/17 14:34 76 26 30 Intake and Output 12/05/17 12/06/17 19:00 07:00 Intake Total 540.0 ml 1047.5 ml Output Total 1060 ml 470 ml Balance -520.0 ml 577.5 ml Intake Free Water 100 ml 100 ml IV Total 180.0 ml 327.5 ml Tube Feeding 260 ml 620 ml Output Urine Total 1060 ml 470 ml # Bowel Movements 4 8 Objective ETT General Appearance: no acute distress HEENT: atraumatic Respiratory/Chest: rhonchi Cardiovascular: normal rate Laboratory Tests 12/06/17 05:30: Stool Occult Blood [Pending] Current Medications Medications (Trade) Dose Ordered Sig/Scot Route PRN Reason Start Time Stop Time Status Last Admin Dose Admin Acetaminophen (Tylenol) 650 mg Q4H PRN ORAL Mild Pain/Temp > 100.5 12/05/17 15:30 01/04/18 15:29 12/06/17 09:10 Aspirin (ASA) 81 mg DAILY NG 11/26/17 09:00 12/26/17 08:59 12/06/17 09:02 Dextrose 1,000 ml @ 25 mls/hr Q24H IV 12/04/17 14:00 01/03/18 13:59 12/06/17 13:52 Diltiazem HCl (Cardizem) 60 mg EVERY 6 HOURS ORAL 11/25/17 18:00 12/25/17 17:59 12/06/17 05:57 Heparin Sodium (Porcine) (Heparin 5000 units/ml) 5,000 units EVERY 12 HOURS SUBQ 11/25/17 21:00 12/25/17 20:59 12/06/17 09:23 Iron Sucrose 100 mg/Sodium Chloride 60 ml @ 240 mls/hr BEDTIME IV 12/03/17 21:00 12/07/17 21:14 12/05/17 21:16 Magnesium Oxide (Mag-Ox 400mg) 400 mg THREE TIMES A DAY ORAL 11/26/17 18:00 12/26/17 17:59 12/06/17 13:52 Metoprolol Tartrate (Lopressor) 25 mg Q12HR ORAL 11/25/17 21:00 12/25/17 20:59 12/06/17 09:27 Pantoprazole (Protonix) 40 mg DAILY IVP 11/26/17 10:15 12/26/17 10:14 12/06/17 09:02 Phosphorus (Phospha 250 Neutral) 250 mg DAILY ORAL 12/04/17 09:00 12/26/17 13:54 12/06/17 09:02 Piperacillin Sod/ Tazobactam Sod 3.375 gm/Dextrose 110 ml @ 27.5 mls/hr EVERY 8 HOURS IVPB 12/02/17 14:00 12/09/17 13:59 12/06/17 13:43 Risperidone (RisperDAL) 0.25 mg Q6H PRN ORAL Agitation 12/01/17 12:30 12/31/17 12:29 Vancomycin HCl (Vanco rx to dose) 1 ea DAILY PRN MISC Per rx protocol 11/25/17 17:30 12/25/17 17:29 Vancomycin HCl/ Dextrose 250 ml @ 166.667 mls/hr Q24H IVPB 11/26/17 20:00 12/10/17 19:59 12/05/17 20:19 Vitamin A/Vitamin D (A & D Oint) 1 applic EVERY 12 HOURS TOPIC 11/28/17 21:00 12/28/17 20:59 12/06/17 09:03 Liban Hammer MD Dec 06, 2017 14:12
--- NOTE | 2017-12-06 14:24 | General Progress Note ---
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 SNOMED: 676809183 (6) Pleural effusion ICD Codes: J90 - Pleural effusion, not elsewhere classified SNOMED: 65436828 (7) 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 ICD Codes: M51.26 - Other intervertebral disc displacement, lumbar region SNOMED: 46995912 (8) Urinary retention ICD Codes: R33.9 - Retention of urine, unspecified SNOMED: 202599403 (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) ICD Codes: D50.0 - Iron deficiency anemia secondary to blood loss (chronic) SNOMED: 82122563, 339998822 (10) Atrial fibrillation ICD Codes: I48.91 - Atrial fibrillation SNOMED: 83120811 Qualifiers: Qualified Codes: I48.2 - Chronic atrial fibrillation (11) Pneumonia ICD Codes: J18.9 - Pneumonia, unspecified organism SNOMED: 168398307 Qualifiers: Qualified Codes: J18.9 - Pneumonia, unspecified organism (12) Acute respiratory failure ICD Codes: J96.00 - Acute respiratory failure, unspecified whether with hypoxia or hypercapnia SNOMED: 52150703 Qualifiers: Qualified Codes: J96.01 - Acute respiratory failure with hypoxia (13) Hypernatremia ICD Codes: E87.0 - Hyperosmolality and hypernatremia SNOMED: 22526220 (14) Diarrhea ICD Codes: R19.7 - Diarrhea, unspecified SNOMED: 92532674 (15) Sacral decubitus ulcer ICD Codes: L89.159 - Pressure ulcer of sacral region, unspecified stage SNOMED: 308622012 Assessment/Plan HC acquired pneumonia, possible aspiration, continue vanco and zosyn, mrsa pneumonia, vre colonized, enterococcal uti chf, parox afib , continue meds, replaceK hypernatremia give free water improving, reduce iv d5w anemia, order venofer , trend lab high risk, daughter aware, full code not weaning, may need trach--call to daughter, she gives consent. n Dr. Anali Green to schedule trach. Anemia and CAD warrents transfusion. Mild high gastric residuals, no nausea, d/w nurse diarrhea check c diff, symptomatic care, wound care icu time 35 min Subjective ROS Limited/Unobtainable: Yes Allergies: Coded Allergies: VINCENT INHIBITORS (Verified Allergy, Mild, 08/06/17) SHELLFISH (Verified Allergy, Unknown, 07/01/11) Subjective alert weak Objective Last 24 Hour Vital Signs Date Time Temp Pulse Resp B/P (MAP) Pulse Ox O2 Delivery O2 Flow Rate FiO2 12/06/17 12:43 63 37 30 12/06/17 12:00 60 26 109/43 99 Mechanical Ventilator 30 12/06/17 12:00 63 109/43 12/06/17 12:00 30 12/06/17 11:06 63 28 30 12/06/17 11:00 60 28 104/54 100 Mechanical Ventilator 30 12/06/17 10:09 99.2 12/06/17 10:00 98.9 61 28 108/54 100 Mechanical Ventilator 30 98.9 12/06/17 09:27 60 122/49 12/06/17 09:10 99.2 12/06/17 09:00 61 18 122/49 100 Mechanical Ventilator 30 12/06/17 08:34 61 23 30 12/06/17 08:32 100 12/06/17 08:00 30 12/06/17 08:00 60 12/06/17 07:00 61 18 90/40 100 Mechanical Ventilator 30 12/06/17 06:46 61 23 30 12/06/17 06:00 60 16 110/74 100 Mechanical Ventilator 30 12/06/17 05:57 61 112/50 12/06/17 05:16 60 18 30 12/06/17 05:00 61 16 100/74 100 Mechanical Ventilator 30 12/06/17 04:00 99.2 60 16 110/48 100 Mechanical Ventilator 30 99.2 12/06/17 04:00 30 12/06/17 04:00 66 3/23/18 03:24 61 17 30 12/06/17 03:00 60 16 106/48 100 Mechanical Ventilator 30 12/06/17 02:00 60 14 105/43 100 Mechanical Ventilator 30 12/06/17 01:17 60 14 30 12/06/17 01:00 60 15 111/55 100 Mechanical Ventilator 30 12/06/17 00:00 60 12/06/17 00:00 30 12/06/17 00:00 99.6 60 15 113/48 100 Mechanical Ventilator 30 99.6 12/05/17 23:50 60 104/82 12/05/17 23:04 62 20 30 12/05/17 23:00 62 17 110/46 100 Mechanical Ventilator 30 12/05/17 22:00 60 16 97/46 100 Mechanical Ventilator 30 12/05/17 21:19 67 20 30 12/05/17 21:15 65 109/48 12/05/17 21:00 64 17 107/53 99 Mechanical Ventilator 30 12/05/17 20:00 30 12/05/17 20:00 67 12/05/17 20:00 98.6 67 17 141/90 99 Mechanical Ventilator 30 98.6 12/05/17 19:25 75 17 30 12/05/17 19:00 100 19 123/53 100 Mechanical Ventilator 30 12/05/17 18:24 98.8 12/05/17 18:00 65 101/52 12/05/17 18:00 98.8 65 19 101/52 100 Mechanical Ventilator 30 98.8 12/05/17 17:00 66 19 113/57 100 Mechanical Ventilator 30 12/05/17 16:38 60 16 30 12/05/17 16:00 64 12/05/17 16:00 30 12/05/17 16:00 98.5 68 19 111/43 100 Mechanical Ventilator 30 98.5 12/05/17 15:00 70 20 108/43 100 Mechanical Ventilator 30 12/05/17 14:34 76 26 30 Intake and Output 12/05/17 12/06/17 19:00 07:00 Intake Total 540.0 ml 1047.5 ml Output Total 1060 ml 470 ml Balance -520.0 ml 577.5 ml Intake Free Water 100 ml 100 ml IV Total 180.0 ml 327.5 ml Tube Feeding 260 ml 620 ml Output Urine Total 1060 ml 470 ml # Bowel Movements 4 8 Laboratory Tests 12/06/17 05:30: Stool Occult Blood [Pending] Height (Feet): 6 Height (Inches): 0.00 Weight (Pounds): 136 General Appearance: alert, mild distress EENT: PERRL/EOMI Neck: normal alignment Cardiovascular: normal rate, regular rhythm Respiratory/Chest: rhonchi - bilaterally Abdomen: no organomegaly Edema: 1+ Arm (L), 1+ Arm (R); no edema noted Leg (L), no edema noted Leg (R), no edema noted Pedal (L), no edema noted Pedal (R), no edema noted Generalized Skin: other - sacral decub Objective alert on vent HODAN GAYTAN Dec 06, 2017 14:24
[2017-12-06] MEDS: Bismuth Subsalicylate 30ml ORAL SCH ×2 (16:19→18:52)
[2017-12-06 19:58] LABS: INR 1.1 (0.9-1.1)
[2017-12-06] MEDS: Vancomycin 1250mg/D5W 250ml IVPB SCH (21:17)
[2017-12-06] MEDS: Iron Sucrose 100 MG in NS 55 ML IV SCH (21:17)
[2017-12-07] VITALS (23 sets, daily range): BP systolic 78–162; BP diastolic 47–80
--- NOTE | 2017-12-07 02:30 | Progress Note ---
DATE: 12/06/2017 CARDIOLOGY PROGRESS NOTE SUBJECTIVE: The patient is on a weaning trial, improved tolerance today. Trach has been scheduled for 12/10/2017; however, improvement may result in that being canceled. OBJECTIVE: VITAL SIGNS: Blood pressure 109/43, heart rate 60, respiratory rate 26, T-max 99.2. Monitor atrial fibrillation with V-pacing. pacemaker was interrogated last week and functioning appropriately with adequate battery life for approximately 1 year. LUNGS: Coarse breath sounds. HEART: Irregularly irregular rhythm. Normal S1, S2. GASTROINTESTINAL: Positive G-tube. EXTREMITIES: No edema. IMPRESSION: 1. Respiratory failure. 2. Acute on chronic systolic and diastolic congestive heart failure. 3. Permanent pacemaker. 4. Paroxysmal atrial fibrillation. 5. Healthcare-acquired pneumonia. 6. Acute myocardial ischemia, now resolved. PLAN: Weaning efforts. Maintain hemoglobin above 8 g for optimal weaning. Assess for diuresis and maintain current cardiovascular regimen. Chay Godinez M.D. DR: Xavier JOB#: [id number] CC: AN
[2017-12-07 04:32] LABS: EOSINOPHILS % (AUTO) 3.3 % (0.0-3.0); HEMATOCRIT 31.4 % (42.0-52.0); HEMOGLOBIN 10.2 G/DL (14.2-18.0); LYMPHOCYTES % (AUTO) 15.4 % (20.0-45.0); MEAN CORPUSCULAR VOLUME 92 FL (80-99); MONOCYTES % (AUTO) 19.8 % (1.0-10.0); NEUTROPHILS % (AUTO) 59.5 % (45.0-75.0); PLATELET COUNT 261 K/UL (150-450); RED BLOOD COUNT 3.43 M/UL (4.70-6.10); RED CELL DISTRIBUTION WIDTH 16.2 % (11.6-14.8); WHITE BLOOD COUNT 5.5 K/UL (4.8-10.8)
[2017-12-07 05:04] LABS: ANION GAP 6 mmol/L (5-15); BLOOD UREA NITROGEN 14 mg/dL (7-18); CALCIUM 7.8 MG/DL (8.5-10.1); CARBON DIOXIDE 27 MMOL/L (21-32); CHLORIDE 105 MMOL/L (98-107); PHOSPHORUS 2.4 MG/DL (2.5-4.9); POTASSIUM 4.5 MMOL/L (3.5-5.1); SODIUM 138 MMOL/L (136-145)
[2017-12-07] MEDS: Piperacillin/Tazobactam 3.375 GM in D5W 110 ML IVPB SCH ×3 (05:30→23:02)
[2017-12-07] MEDS: dilTIAZem HCl 60mg tab ORAL SCH ×3 (06:17→17:47)
[2017-12-07] MEDS: Aspirin Baby 81mg NG SCH (08:15)
[2017-12-07] MEDS: Pantoprazole Inj IVP SCH (08:15)
[2017-12-07] MEDS: Magnesium Oxide 400mg tab ORAL SCH ×3 (08:16→17:47)
[2017-12-07] MEDS: Metoprolol 25mg tab ORAL SCH ×2 (08:16→20:16)
[2017-12-07] MEDS: Vitamin A&D Oint 2oz Tube TOPIC SCH ×2 (08:17→20:17)
[2017-12-07] MEDS: Bismuth Subsalicylate 30ml ORAL SCH ×3 (08:17→17:47)
[2017-12-07] MEDS: Heparin 5000 units/ml inj SUBQ SCH ×2 (08:22→20:17)
--- NOTE | 2017-12-07 15:44 | General Progress Note ---
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 SNOMED: 001712437 (6) Pleural effusion ICD Codes: J90 - Pleural effusion, not elsewhere classified SNOMED: 22477156 (7) 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 ICD Codes: M51.26 - Other intervertebral disc displacement, lumbar region SNOMED: 75150336 (8) Urinary retention ICD Codes: R33.9 - Retention of urine, unspecified SNOMED: 077271231 (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) ICD Codes: D50.0 - Iron deficiency anemia secondary to blood loss (chronic) SNOMED: 97757118, 465034370 (10) Atrial fibrillation ICD Codes: I48.91 - Atrial fibrillation SNOMED: 33365890 Qualifiers: Qualified Codes: I48.2 - Chronic atrial fibrillation (11) Pneumonia ICD Codes: J18.9 - Pneumonia, unspecified organism SNOMED: 057305081 Qualifiers: Qualified Codes: J18.9 - Pneumonia, unspecified organism (12) Acute respiratory failure ICD Codes: J96.00 - Acute respiratory failure, unspecified whether with hypoxia or hypercapnia SNOMED: 74300511 Qualifiers: Qualified Codes: J96.01 - Acute respiratory failure with hypoxia (13) Hypernatremia ICD Codes: E87.0 - Hyperosmolality and hypernatremia SNOMED: 13838752 (14) Diarrhea ICD Codes: R19.7 - Diarrhea, unspecified SNOMED: 50156730 (15) Sacral decubitus ulcer ICD Codes: L89.159 - Pressure ulcer of sacral region, unspecified stage SNOMED: 004570150 Assessment/Plan HC acquired pneumonia, possible aspiration, continue vanco and zosyn, mrsa pneumonia, vre colonized, enterococcal uti chf, parox afib , continue meds, replaceK hypernatremia give free water improving, reduce iv d5w anemia, order venofer , trend lab high risk, daughter aware, full code not weaning, may need trach--call to daughter, she gives consent. n Dr. Anali Green to schedule trach. Anemia and CAD warrents transfusion. Mild high gastric residuals, no nausea, d/w nurse diarrhea check c diff, symptomatic care, wound care self extubated, observ on oxygen mask, at risk for reintubation icu time 40 min Subjective Constitutional: Reports: weakness HEENT: Reports: no symptoms Cardiovascular: Reports: no symptoms Respiratory: Reports: shortness of breath, SOB at rest Gastrointestinal/Abdominal: Reports: abdomen distended Genitourinary: Reports: incontinence Neurologic/Psychiatric: Reports: pre-existing deficit Endocrine: Reports: no symptoms Hematologic/Lymphatic: Reports: anemia Allergies: Coded Allergies: VINCENT INHIBITORS (Verified Allergy, Mild, 08/06/17) SHELLFISH (Verified Allergy, Unknown, 07/01/11) Subjective alert weak s/p self extubation Objective Last 24 Hour Vital Signs Date Time Temp Pulse Resp B/P (MAP) Pulse Ox O2 Delivery O2 Flow Rate FiO2 12/07/17 15:00 71 36 138/55 97 Venturi Mask 40 12/07/17 14:00 73 32 78/56 96 Non-Rebreather 100 12/07/17 13:02 69 148/54 12/07/17 13:00 75 32 160/75 95 Mechanical Ventilator 30 12/07/17 12:16 97 12/07/17 12:00 98.5 65 30 140/62 95 Mechanical Ventilator 30 98.5 12/07/17 12:00 60 12/07/17 11:20 64 41 30 12/07/17 11:00 59 33 132/56 96 Mechanical Ventilator 30 12/07/17 10:00 62 33 148/62 96 Mechanical Ventilator 30 12/07/17 09:27 30 12/07/17 09:10 62 49 30 12/07/17 09:00 65 17 116/47 96 Mechanical Ventilator 30 12/07/17 08:16 62 116/47 12/07/17 08:00 30 12/07/17 08:00 97.8 64 17 115/48 98 Mechanical Ventilator 30 97.8 12/07/17 08:00 62 12/07/17 07:00 60 19 109/49 100 12/07/17 06:46 62 18 30 12/07/17 06:17 63 119/52 12/07/17 06:00 60 17 119/52 100 Mechanical Ventilator 30 12/07/17 05:19 58 21 Mechanical Ventilator 30 12/07/17 05:16 62 23 30 12/07/17 05:00 63 18 136/51 98 Mechanical Ventilator 30 12/07/17 04:00 97.3 60 18 115/48 98 Mechanical Ventilator 30 97.3 12/07/17 04:00 60 12/07/17 04:00 30 12/07/17 03:30 55 20 30 12/07/17 03:00 61 15 112/52 99 Mechanical Ventilator 30 12/07/17 02:00 61 18 119/51 100 Mechanical Ventilator 30 12/07/17 01:30 62 19 30 12/07/17 01:00 60 17 108/48 100 Mechanical Ventilator 30 12/07/17 00:00 98.4 60 17 111/48 98 Mechanical Ventilator 30 98.4 12/07/17 00:00 30 12/07/17 00:00 60 12/06/17 23:25 61 22 30 12/06/17 23:12 61 135/62 12/06/17 23:00 61 33 135/62 100 Mechanical Ventilator 30 12/06/17 22:00 64 30 144/61 98 Mechanical Ventilator 30 12/06/17 21:30 69 32 30 12/06/17 21:18 64 146/57 12/06/17 21:00 65 33 146/57 100 Mechanical Ventilator 30 12/06/17 20:00 71 32 151/57 99 Mechanical Ventilator 30 12/06/17 20:00 30 12/06/17 20:00 78 18 19:30 67 38 30 12/06/17 19:00 98.8 69 35 163/66 99 Mechanical Ventilator 30 98.8 12/06/17 18:00 61 28 124/45 100 Mechanical Ventilator 30 12/06/17 18:00 73 124/45 18 16:47 69 35 30 12/06/17 16:00 30 12/06/17 16:00 65 33 130/47 100 Mechanical Ventilator 30 12/06/17 16:00 74 Intake and Output 12/06/17 12/07/17 19:00 07:00 Intake Total 1370.00 ml 1541.25 ml Output Total 460 ml 530 ml Balance 910.00 ml 1011.25 ml Intake Free Water 50 ml IV Total 410.00 ml 761.25 ml Tube Feeding 910 ml 780 ml Output Urine Total 460 ml 530 ml # Bowel Movements 4 6 Laboratory Tests 12/06/17 16:18: Arterial Blood pH 7.400, Arterial Blood Partial Pressure CO2 41.5, Arterial Blood Partial Pressure O2 88.1, Arterial Blood HCO3 25.7, Arterial Blood Oxygen Saturation 96.4, Arterial Blood Base Excess 0.9, Chepe Test Positive 12/06/17 19:00: Prothrombin Time 12.0H, Prothromb Time International Ratio 1.1, Vancomycin Level Trough 17.3H 12/07/17 04:20: White Blood Count 5.5, Red Blood Count 3.43L, Hemoglobin 10.2L, Hematocrit 31.4L , Mean Corpuscular Volume 92, Mean Corpuscular Hemoglobin 29.9, Mean Corpuscular Hemoglobin Concent 32.6, Red Cell Distribution Width 16.2H, Platelet Count 261, Mean Platelet Volume 9.3, Neutrophils (%) (Auto) 59.5, Lymphocytes (%) (Auto) 15.4L, Monocytes (%) (Auto) 19.8H, Eosinophils (%) (Auto ) 3.3H, Basophils (%) (Auto) 2.0, Sodium Level 138, Potassium Level 4.5, Chloride Level 105, Carbon Dioxide Level 27, Anion Gap 6, Blood Urea Nitrogen 14 , Creatinine 1.0, Estimat Glomerular Filtration Rate , Glucose Level 89, Calcium Level 7.8L, Phosphorus Level 2.4L, Magnesium Level 2.0, Pro-B-Type Natriuretic Peptide 8730H 12/07/17 10:43: Arterial Blood pH 7.390, Arterial Blood Partial Pressure CO2 39.3, Arterial Blood Partial Pressure O2 74.3L, Arterial Blood HCO3 23.5, Arterial Blood Oxygen Saturation 93.8, Arterial Blood Base Excess -1.2, Chepe Test Positive Height (Feet): 6 Height (Inches): 0.00 Weight (Pounds): 151 General Appearance: mild distress, thin EENT: PERRL/EOMI Neck: non-tender Cardiovascular: regular rhythm Respiratory/Chest: rhonchi - bilaterally Abdomen: distended Edema: no edema noted Arm (L), no edema noted Arm (R), no edema noted Leg (L), no edema noted Leg (R), no edema noted Pedal (L), no edema noted Pedal (R), no edema noted Generalized Objective alert on vent HODAN GAYTAN Dec 07, 2017 15:44
[2017-12-07] MEDS: Vancomycin 1250mg/D5W 250ml IVPB SCH (20:15)
--- NOTE | 2017-12-07 20:30 | Progress Note ---
DATE: 12/07/2017 CARDIOLOGY PROGRESS NOTE SUBJECTIVE: The patient remains in the intensive care unit. He remains on ventilator support. Orally intubated. Mechanically ventilated. Monitored rhythm, atrial fibrillation with ventricular pacing. OBJECTIVE: VITAL SIGNS: Blood pressure range trending up to 140/62 to 160/75, heart rate 60 to 75, respiratory rate 18, and afebrile. LUNGS: Coarse breath sounds. Scattered rhonchi. HEART: Irregularly irregular rhythm. Normal S1, S2. ABDOMEN: G-tube intact. EXTREMITIES: Trace dependent edema. LABORATORY DATA: White count is 5.5 and hemoglobin 10.2. ABG, pH 7.39, pCO2 39, and pO2 74 with weaning trial. Phosphorus 2.4, magnesium 2.0, BUN 14, creatinine 1, and potassium 4.5. Pro-natriuretic peptide is 8730, which is slightly increased from last week. IMPRESSION: 1. Respiratory failure. 2. Acute on chronic diastolic and systolic congestive heart failure. 3. Paroxysmal atrial fibrillation with permanent pacemaker. 4. Healthcare-acquired pneumonia. 5. Acute myocardial ischemia. 6. Hypertensive heart disease. PLAN: 1. Continue weaning efforts. 2. Diuresis added. 3. Respiratory hygiene. 4. Maintain other cardiovascular regimen as is. 5. We will consider up titrating antihypertensives if persistently elevated blood pressure range. Chay Godinez M.D. DR: PHILLIP JOB#: [id number] CC:
[2017-12-07] MEDS ORDERED: Albuterol/Ipratropium 3ml neb HHN PRN (21:00)
[2017-12-07] MEDS ORDERED: Iron Sucrose 100 MG in NS 55 ML IV SCH (21:00)
--- NOTE | 2017-12-07 23:05 | Pulmonolgy Critical Care Note ---
Critical Care - Asmt/Plan Assessment/Plan: 1. Pneumonia, healthcare acquired due to s aureus 2. Pleural effusions. 3. Chronic systolic congestive heart failure. 4. Hypotension, due to septic shock, improved. 5. Elevation of troponin, possible acute coronary syndrome. 6. History of CVA with dysarthria and dysphagia. 7. Respiratory failure acute on chronic. 8. Septic shock. 9. Indwelling Reyes 10. GT 11. sp self extubation place onbipap may require reintubation if not improved nebs and suction NPO CXR in am, check ABG abx wound care negative io check labs continue ICU Respiratory: adjust tidal volume, CXR, ABG Cardiac: continue to monitor HR/BP Renal: keep IV fluid Gastrointestinal: hold feedings Endocrine: monitor blood sugar, check HgA1C Prophylaxis: Protonix, Heparin Disposition: keep in ICU Time Spent (Minutes): 50 Notes Reviewed: tapper balance wheel screw hole Discussed with: nurses Critical Care - Objective Last 24 Hour Vital Signs Date Time Temp Pulse Resp B/P (MAP) Pulse Ox O2 Delivery O2 Flow Rate FiO2 12/07/17 23:00 70 34 135/52 95 Venturi Mask 100 12/07/17 22:00 65 34 116/52 98 Venturi Mask 100 12/07/17 21:00 66 34 116/69 96 Venturi Mask 100 12/07/17 20:16 76 150/57 12/07/17 20:00 98.8 77 34 145/58 93 Venturi Mask 40 98.8 12/07/17 20:00 73 12/07/17 19:30 40 12/07/17 18:00 71 36 144/75 97 Venturi Mask 40 12/07/17 17:47 78 144/54 12/07/17 17:00 68 36 136/65 97 Venturi Mask 40 12/07/17 16:00 69 12/07/17 16:00 98.2 68 33 125/58 97 Venturi Mask 40 98.2 12/07/17 15:00 71 36 138/55 97 Venturi Mask 40 12/07/17 14:00 73 32 78/56 96 Non-Rebreather 100 12/07/17 13:02 69 148/54 12/07/17 13:00 75 32 160/75 95 Mechanical Ventilator 30 12/07/17 12:16 97 12/07/17 12:00 98.5 65 30 140/62 95 Mechanical Ventilator 30 98.5 12/07/17 12:00 60 12/07/17 11:20 64 41 30 12/07/17 11:00 59 33 132/56 96 Mechanical Ventilator 30 12/07/17 10:00 62 33 148/62 96 Mechanical Ventilator 30 12/07/17 09:27 30 12/07/17 09:10 62 49 30 12/07/17 09:00 65 17 116/47 96 Mechanical Ventilator 30 12/07/17 08:16 62 116/47 12/07/17 08:00 30 12/07/17 08:00 97.8 64 17 115/48 98 Mechanical Ventilator 30 97.8 12/07/17 08:00 62 12/07/17 07:00 60 19 109/49 100 12/07/17 06:46 62 18 30 12/07/17 06:17 63 119/52 12/07/17 06:00 60 17 119/52 100 Mechanical Ventilator 30 12/07/17 05:19 58 21 Mechanical Ventilator 30 12/07/17 05:16 62 23 30 12/07/17 05:00 63 18 136/51 98 Mechanical Ventilator 30 12/07/17 04:00 97.3 60 18 115/48 98 Mechanical Ventilator 30 97.3 12/07/17 04:00 60 12/07/17 04:00 30 12/07/17 03:30 55 20 30 12/07/17 03:00 61 15 112/52 99 Mechanical Ventilator 30 12/07/17 02:00 61 18 119/51 100 Mechanical Ventilator 30 12/07/17 01:30 62 19 30 12/07/17 01:00 60 17 108/48 100 Mechanical Ventilator 30 12/07/17 00:00 98.4 60 17 111/48 98 Mechanical Ventilator 30 98.4 12/07/17 00:00 30 12/07/17 00:00 60 12/06/17 23:25 61 22 30 12/06/17 23:12 61 135/62 Status: awake Condition: critical Lungs: rhonchi Heart: HR/BP stable Abdomen: non-tender, active bowel sounds Extremities: no C/C/E, edema Micro: Microbiology Date/Time Source Procedure Growth Status 12/06/17 05:30 Stool Clostridium difficile Toxin Assay - Final Complete Blood Sugars: BS controlled Critical Care - Subjective ROS Limited/Unobtainable: Yes Condition: critical FI02: 100 Vent Support Breath Rate: 12 Vent Support Mode: CPAP Vent Tidal Volume: 600 Sputum Amount: Small PEEP: 5.0 PIP: 18 Tube Feeding Amount: 65 I&O: Intake and Output 12/06/17 12/07/17 19:00 07:00 Intake Total 1370.00 ml 1541.25 ml Output Total 460 ml 530 ml Balance 910.00 ml 1011.25 ml Intake Free Water 50 ml IV Total 410.00 ml 761.25 ml Tube Feeding 910 ml 780 ml Output Urine Total 460 ml 530 ml # Bowel Movements 4 6 Subjective: pulled ett to 16 and then it was removed moderate tachypnic this evening awake moist cough no bleeding positive uop no pressors ET-Tube: 7.5 ET Position: 23 Labs: Current Medications Medications (Trade) Dose Ordered Sig/Scot Route PRN Reason Start Time Stop Time Status Last Admin Dose Admin Acetaminophen (Tylenol) 650 mg Q4H PRN ORAL Mild Pain/Temp > 100.5 12/05/17 15:30 01/04/18 15:29 12/06/17 09:10 Albuterol/ Ipratropium (Albuterol/ Ipratropium) 3 ml Q4H PRN HHN Shortness of Breath 12/07/17 21:00 12/12/17 20:59 Aspirin (ASA) 81 mg DAILY NG 11/26/17 09:00 12/26/17 08:59 12/07/17 08:15 Bismuth Subsalicylate (Pepto-Bismol) 30 ml TID ORAL 12/06/17 15:30 01/05/18 15:29 12/07/17 17:47 Dextrose 1,000 ml @ 25 mls/hr Q24H IV 12/04/17 14:00 01/03/18 13:59 12/07/17 13:02 Diltiazem HCl (Cardizem) 60 mg EVERY 6 HOURS ORAL 11/25/17 18:00 12/25/17 17:59 12/07/17 17:47 Heparin Sodium (Porcine) (Heparin 5000 units/ml) 5,000 units EVERY 12 HOURS SUBQ 11/25/17 21:00 12/25/17 20:59 12/07/17 20:17 Magnesium Oxide (Mag-Ox 400mg) 400 mg THREE TIMES A DAY ORAL 11/26/17 18:00 12/26/17 17:59 12/07/17 17:47 Metoprolol Tartrate (Lopressor) 25 mg Q12HR ORAL 11/25/17 21:00 12/25/17 20:59 12/07/17 20:16 Pantoprazole (Protonix) 40 mg DAILY IVP 11/26/17 10:15 12/26/17 10:14 12/07/17 08:15 Piperacillin Sod/ Tazobactam Sod 3.375 gm/Dextrose 110 ml @ 27.5 mls/hr EVERY 8 HOURS IVPB 12/02/17 14:00 12/09/17 13:59 12/07/17 13:03 Risperidone (RisperDAL) 0.25 mg Q6H PRN ORAL Agitation 12/01/17 12:30 12/31/17 12:29 Vancomycin HCl (Vanco rx to dose) 1 ea DAILY PRN MISC Per rx protocol 11/25/17 17:30 12/25/17 17:29 Vancomycin HCl/ Dextrose 250 ml @ 166.667 mls/hr Q24H IVPB 11/26/17 20:00 12/10/17 19:59 12/07/17 20:15 Vitamin A/Vitamin D (A & D Oint) 1 applic EVERY 12 HOURS TOPIC 11/28/17 21:00 12/28/17 20:59 12/07/17 20:17 Laboratory Tests Test 12/07/17 04:20 12/07/17 10:43 White Blood Count 5.5 K/UL (4.8-10.8) Red Blood Count 3.43 M/UL (4.70-6.10) L Hemoglobin 10.2 G/DL (14.2-18.0) L Hematocrit 31.4 % (42.0-52.0) L Mean Corpuscular Volume 92 FL (80-99) Mean Corpuscular Hemoglobin 29.9 PG (27.0-31.0) Mean Corpuscular Hemoglobin Concent 32.6 G/DL (32.0-36.0) Red Cell Distribution Width 16.2 % (11.6-14.8) H Platelet Count 261 K/UL (150-450) Mean Platelet Volume 9.3 FL (6.5-10.1) Neutrophils (%) (Auto) 59.5 % (45.0-75.0) Lymphocytes (%) (Auto) 15.4 % (20.0-45.0) L Monocytes (%) (Auto) 19.8 % (1.0-10.0) H Eosinophils (%) (Auto) 3.3 % (0.0-3.0) H Basophils (%) (Auto) 2.0 % (0.0-2.0) Sodium Level 138 MMOL/L (136-145) Potassium Level 4.5 MMOL/L (3.5-5.1) Chloride Level 105 MMOL/L (98-107) Carbon Dioxide Level 27 MMOL/L (21-32) Anion Gap 6 mmol/L (5-15) Blood Urea Nitrogen 14 mg/dL (7-18) Creatinine 1.0 MG/DL (0.55-1.30) Estimat Glomerular Filtration Rate mL/min (>60) Glucose Level 89 MG/DL (74-106) Calcium Level 7.8 MG/DL (8.5-10.1) L Phosphorus Level 2.4 MG/DL (2.5-4.9) L Magnesium Level 2.0 MG/DL (1.8-2.4) Pro-B-Type Natriuretic Peptide 8730 pg/mL (0-125) H Arterial Blood pH 7.390 (7.350-7.450) Arterial Blood Partial Pressure CO2 39.3 mmHg (35.0-45.0) Arterial Blood Partial Pressure O2 74.3 mmHg (75.0-100.0) L Arterial Blood HCO3 23.5 mmol/L (22.0-26.0) Arterial Blood Oxygen Saturation 93.8 % (92.0-98.0) Arterial Blood Base Excess -1.2 Chepe Test Positive PIERRE GRIFFIN DO Dec 07, 2017 23:05
[2017-12-08] VITALS (24 sets, daily range): BP systolic 115–158; BP diastolic 40–74
[2017-12-08 05:43] LABS: ANION GAP 10 mmol/L (5-15); BLOOD UREA NITROGEN 11 mg/dL (7-18); CALCIUM 8.1 MG/DL (8.5-10.1); CARBON DIOXIDE 26 MMOL/L (21-32); CHLORIDE 99 MMOL/L (98-107); POTASSIUM 4.6 MMOL/L (3.5-5.1); SODIUM 134 MMOL/L (136-145)
[2017-12-08 05:44] LABS: BASOPHILS % (AUTO) 0.9 % (0.0-2.0); EOSINOPHILS % (AUTO) 0.7 % (0.0-3.0); HEMATOCRIT 42.2 % (42.0-52.0); HEMOGLOBIN 13.7 G/DL (14.2-18.0); LYMPHOCYTES % (AUTO) 16.8 % (20.0-45.0); MEAN CORPUSCULAR VOLUME 93 FL (80-99); MONOCYTES % (AUTO) 7.8 % (1.0-10.0); NEUTROPHILS % (AUTO) 73.8 % (45.0-75.0); PLATELET COUNT 317 K/UL (150-450); RED BLOOD COUNT 4.55 M/UL (4.70-6.10); RED CELL DISTRIBUTION WIDTH 16.7 % (11.6-14.8); WHITE BLOOD COUNT 7.5 K/UL (4.8-10.8)
[2017-12-08] MEDS: Piperacillin/Tazobactam 3.375 GM in D5W 110 ML IVPB SCH ×3 (05:52→22:17)
[2017-12-08] MEDS: dilTIAZem HCl 60mg tab ORAL SCH ×4 (05:52→17:33)
[2017-12-08] MEDS: Aspirin Baby 81mg NG SCH (08:27)
[2017-12-08] MEDS: Pantoprazole Inj IVP SCH (08:27)
[2017-12-08] MEDS: Metoprolol 25mg tab ORAL SCH ×2 (08:28→21:01)
[2017-12-08] MEDS: Magnesium Oxide 400mg tab ORAL SCH ×3 (08:28→17:32)
[2017-12-08] MEDS: Vitamin A&D Oint 2oz Tube TOPIC SCH ×2 (08:29→21:01)
[2017-12-08] MEDS: Heparin 5000 units/ml inj SUBQ SCH ×2 (08:37→21:02)
--- NOTE | 2017-12-08 10:30 | Diagnostic Imaging Report ---
Indication: Shortness of breath Technique: XRAY Chest 1v Comparison: 12/01/2017 Findings: Endotracheal tube has been removed. Right chest pacemaker is seen. Cardiomediastinal silhouette is stable. Bilateral interstitial and airspace opacities are again present. Moderate right pleural effusion is seen possibly loculated. Osseous structures are stable. Impression: Interval extubation. Otherwise grossly stable chest.
[2017-12-08] MEDS ORDERED: Tubing IV Secondary IV ONE ×4 (10:39→17:30)
[2017-12-08] MEDS: Bismuth Subsalicylate 30ml ORAL SCH ×3 (10:44→17:32)
[2017-12-08] MEDS ORDERED: D5W 550ml IV ONE (10:46)
[2017-12-08] MEDS ORDERED: NS 275ml ONE ×2 (10:46→10:53)
[2017-12-08] MEDS ORDERED: Tubing Blood Filter IV ONE (10:46)
[2017-12-08] MEDS ORDERED: D5NS 1000ml IV ONE ×2 (10:53→17:30)
--- NOTE | 2017-12-08 13:04 | General Progress Note ---
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 SNOMED: 766423787 (6) Pleural effusion ICD Codes: J90 - Pleural effusion, not elsewhere classified SNOMED: 04533926 (7) 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 ICD Codes: M51.26 - Other intervertebral disc displacement, lumbar region SNOMED: 50865920 (8) Urinary retention ICD Codes: R33.9 - Retention of urine, unspecified SNOMED: 952202295 (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) ICD Codes: D50.0 - Iron deficiency anemia secondary to blood loss (chronic) SNOMED: 15175270, 036710135 (10) Atrial fibrillation ICD Codes: I48.91 - Atrial fibrillation SNOMED: 03397981 Qualifiers: Qualified Codes: I48.2 - Chronic atrial fibrillation (11) Pneumonia ICD Codes: J18.9 - Pneumonia, unspecified organism SNOMED: 595546672 Qualifiers: Qualified Codes: J18.9 - Pneumonia, unspecified organism (12) Acute respiratory failure ICD Codes: J96.00 - Acute respiratory failure, unspecified whether with hypoxia or hypercapnia SNOMED: 79193222 Qualifiers: Qualified Codes: J96.01 - Acute respiratory failure with hypoxia (13) Hypernatremia ICD Codes: E87.0 - Hyperosmolality and hypernatremia SNOMED: 82201259 (14) Diarrhea ICD Codes: R19.7 - Diarrhea, unspecified SNOMED: 91387594 (15) Sacral decubitus ulcer ICD Codes: L89.159 - Pressure ulcer of sacral region, unspecified stage SNOMED: 995546173 Assessment/Plan HC acquired pneumonia, possible aspiration, continue vanco and zosyn, mrsa pneumonia, vre colonized, enterococcal uti chf, parox afib , continue meds, replaceK hypernatremia give free water improving, reduce iv d5w anemia, order venofer , trend lab high risk, daughter aware, full code not weaning, may need trach--call to daughter, she gives consent. n Dr. Anali Green to schedule trach. Anemia and CAD warrents transfusion. Mild high gastric residuals, no nausea, d/w nurse diarrhea check c diff, neg, symptomatic care, wound care self extubated, observeon oxygen mask,now bipap, mod distress at risk for reintubation, lasix 40 today icu time 40 min Subjective ROS Limited/Unobtainable: Yes Allergies: Coded Allergies: VINCENT INHIBITORS (Verified Allergy, Mild, 08/06/17) SHELLFISH (Verified Allergy, Unknown, 07/01/11) Subjective alert weak s/p self extubation Objective Last 24 Hour Vital Signs Date Time Temp Pulse Resp B/P (MAP) Pulse Ox O2 Delivery O2 Flow Rate FiO2 12/08/17 12:01 86 119/53 12/08/17 12:00 98.6 73 33 119/53 98 Bi-pap 70 98.6 12/08/17 12:00 73 12/08/17 11:15 74 45 100 Full Face 70 12/08/17 11:00 86 33 119/55 98 Bi-pap 70 12/08/17 10:00 88 30 145/54 98 Bi-pap 70 12/08/17 09:00 83 30 125/50 98 Bi-pap 70 12/08/17 08:45 79 48 93 Facial 70 12/08/17 08:28 85 142/50 12/08/17 08:00 72 12/08/17 08:00 98.5 72 30 142/50 98 Bi-pap 70 98.5 12/08/17 08:00 70 12/08/17 07:09 70 47 93 Facial 70 12/08/17 07:00 93 30 158/58 98 Bi-pap 60 12/08/17 06:00 81 38 158/62 98 Bi-pap 50 12/08/17 05:52 99 124/42 12/08/17 05:22 80 45 98 Facial 46 12/08/17 05:00 81 39 124/42 98 Bi-pap 50 12/08/17 04:00 74 12/08/17 04:00 98.2 68 44 132/45 97 Bi-pap 50 98.2 12/08/17 04:00 60 12/08/17 03:30 73 48 95 Facial 45 12/08/17 03:00 68 39 132/45 98 Bi-pap 50 12/08/17 02:00 67 40 131/47 98 Bi-pap 50 12/08/17 01:30 77 43 99 Facial 45 12/08/17 01:00 66 35 126/51 100 Bi-pap 50 12/08/17 00:00 60 12/08/17 00:00 98.5 70 33 126/51 98 Bi-pap 50 98.5 12/08/17 00:00 62 126/51 12/08/17 00:00 69 12/07/17 23:22 69 44 100 Facial 50 12/07/17 23:00 100 12/07/17 23:00 70 34 135/52 95 Bi-pap 50 12/07/17 22:00 65 34 116/52 98 Bi-pap 50 12/07/17 21:00 66 34 116/69 96 Bi-pap 50 12/07/17 20:16 76 150/57 12/07/17 20:00 98.8 77 34 145/58 93 Venturi Mask 40 98.8 12/07/17 20:00 73 12/07/17 19:30 Venturi Mask 12.0 40 12/07/17 19:30 40 12/07/17 19:30 94 Venturi Mask 12.0 40 12/07/17 18:00 71 36 144/75 97 Venturi Mask 40 12/07/17 17:47 78 144/54 12/07/17 17:00 68 36 136/65 97 Venturi Mask 40 12/07/17 16:00 69 12/07/17 16:00 98.2 68 33 125/58 97 Venturi Mask 40 98.2 12/07/17 15:00 71 36 138/55 97 Venturi Mask 40 12/07/17 14:00 73 32 78/56 96 Non-Rebreather 100 12/07/17 13:02 69 148/54 Intake and Output 12/07/17 12/08/17 19:00 07:00 Intake Total 1177.5 ml 1819.167 ml Output Total 1475 ml 790 ml Balance -297.5 ml 1029.167 ml Intake Free Water 100 ml IV Total 492.5 ml 1039.167 ml Tube Feeding 585 ml 780 ml Output Urine Total 1475 ml 790 ml # Bowel Movements 7 1 Laboratory Tests 12/08/17 04:00: White Blood Count 7.5, Red Blood Count 4.55L, Hemoglobin 13.7#L, Hematocrit 42.2 #, Mean Corpuscular Volume 93, Mean Corpuscular Hemoglobin 30.2, Mean Corpuscular Hemoglobin Concent 32.5, Red Cell Distribution Width 16.7H, Platelet Count 317, Mean Platelet Volume 8.9, Neutrophils (%) (Auto) 73.8, Lymphocytes (%) (Auto) 16.8L, Monocytes (%) (Auto) 7.8, Eosinophils (%) (Auto) 0.7, Basophils (%) (Auto) 0.9, Sodium Level 134L, Potassium Level 4.6, Chloride Level 99, Carbon Dioxide Level 26, Anion Gap 10, Blood Urea Nitrogen 11, Creatinine 1.0, Estimat Glomerular Filtration Rate , Glucose Level 121H, Calcium Level 8.1L 12/08/17 07:50: Arterial Blood pH 7.440, Arterial Blood Partial Pressure CO2 37.9, Arterial Blood Partial Pressure O2 132.2H, Arterial Blood HCO3 25.2, Arterial Blood Oxygen Saturation 98.6H, Arterial Blood Base Excess 1.2, Chepe Test Positive Height (Feet): 6 Height (Inches): 0.00 Weight (Pounds): 143 General Appearance: moderate distress, thin EENT: PERRL/EOMI Neck: normal alignment Cardiovascular: regularly irregular Respiratory/Chest: rhonchi - bilaterally, other - [id number] Abdomen: soft, distended Edema: no edema noted Arm (L), no edema noted Arm (R), no edema noted Leg (L), no edema noted Leg (R), no edema noted Pedal (L), no edema noted Pedal (R), no edema noted Generalized Objective alert on vent HODAN GAYTAN Dec 08, 2017 13:03
--- NOTE | 2017-12-08 16:15 | Consultation ---
DATE OF CONSULTATION: 12/08/2017 HEAD AND NECK SURGERY, EAR, NOSE, THROAT CONSULTATION CONSULTING PHYSICIAN: Carlos Green M.D. REQUESTING PHYSICIAN: Martinez Rubalcava M.D. INDICATION FOR CONSULTATION: This is a 72-year-old male, who has been intubated. There was question whether he will be extubated. He self-extubated and is on BiPAP now and not doing well per my discussion with Dr. Rubalcava in the ICU approximately 30 minutes ago. He is being evaluated for potential trach which is scheduled if needed for Saturday, two days from now. MEDICATIONS: Lasix, potassium chloride, iron, sucrose, albuterol, Pepto-Bismol, Tylenol, piperacillin sodium, tazobactam sodium, Risperdal, vitamin and vitamin A ointments, vancomycin, Protonix, aspirin, heparin, Lopressor, Cardizem. ALLERGIES: He is allergic to VINCENT inhibitors and shellfish. 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 PAST SURGICAL HISTORY: I am not sure of his surgical history in the past beyond that he has a gastrostomy tube. HABITS: According to the chart, he was a smoker, quit many years ago. Occasional alcohol. Drugs none. Lives with his family recently until he went to an [facility]. PHYSICAL EXAMINATION: GENERAL: The patient is a 72-year-old male. VITAL SIGNS: Height 182.88 cm, 64.864 kg, BMI of 19.4. HEENT: Head normocephalic. Ears, positive light reflex, normal canal. Nose, I did not look and he had BiPAP on, nor did I look in his mouth. NECK: Good landmarks and is suitable for a trach. ASSESSMENT: Respiratory failure, congestive heart failure, pleural effusion, and many other medical issues. PLAN: He is Full Code. If he ends up being re-intubated, I suspect he will benefit from tracheostomy tube as opposed to being intubated and extubated off and on. I have reserved time Saturday as noted above and should he not tolerate being extubated, we will proceed. Thank you very much for asking my opinion in the care and treatment of this patient. Carlos Green M.D. DR: Maria Isabel JOB#: [id number] CC:
[2017-12-08] MEDS ORDERED: Sterile Water Irrig 1000ml IRRIG ONE (17:30)
--- NOTE | 2017-12-08 17:55 | Pulmonolgy Critical Care Note ---
Critical Care - Asmt/Plan Assessment/Plan: 1. Pneumonia, healthcare acquired due to s aureus 2. Pleural effusions. 3. Chronic systolic congestive heart failure. 4. Hypotension, due to septic shock, improved. 5. Elevation of troponin, possible acute coronary syndrome. 6. History of CVA with dysarthria and dysphagia. 7. Respiratory failure acute on chronic. 8. Septic shock. 9. Indwelling Reyes 10. GT 11. sp self extubation continue on bipap may require reintubation if not improved nebs and suction NPO CXR in am, check ABG aswell abx wound care negative io check labs continue ICU Respiratory: CXR Cardiac: continue to monitor HR/BP Infectious Disease: check cultures Disposition: keep in ICU Time Spent (Minutes): 50 Notes Reviewed: research technologist, cardio Discussed with: nurses Critical Care - Objective Last 24 Hour Vital Signs Date Time Temp Pulse Resp B/P (MAP) Pulse Ox O2 Delivery O2 Flow Rate FiO2 12/08/17 17:33 89 138/66 12/08/17 17:26 92 43 99 Full Face 70 12/08/17 17:00 95 30 115/51 98 Bi-pap 70 12/08/17 16:00 97 12/08/17 16:00 98.5 98 29 115/51 98 Bi-pap 70 98.5 12/08/17 15:05 76 42 98 Full Face 70 12/08/17 15:00 81 36 125/54 98 Bi-pap 70 12/08/17 14:00 78 36 123/49 98 Bi-pap 70 12/08/17 13:00 70 36 122/49 98 Bi-pap 70 12/08/17 12:45 72 47 100 Full Face 70 12/08/17 12:01 86 119/53 12/08/17 12:00 98.6 73 33 119/53 98 Bi-pap 70 98.6 12/08/17 12:00 73 12/08/17 11:15 74 45 100 Full Face 70 12/08/17 11:00 86 33 119/55 98 Bi-pap 70 12/08/17 10:00 88 30 145/54 98 Bi-pap 70 12/08/17 09:00 83 30 125/50 98 Bi-pap 70 12/08/17 08:45 79 48 93 Facial 70 12/08/17 08:28 85 142/50 12/08/17 08:00 72 12/08/17 08:00 98.5 72 30 142/50 98 Bi-pap 70 98.5 12/08/17 08:00 70 12/08/17 07:09 70 47 93 Facial 70 12/08/17 07:00 93 30 158/58 98 Bi-pap 60 12/08/17 06:00 81 38 158/62 98 Bi-pap 50 12/08/17 05:52 99 124/42 12/08/17 05:22 80 45 98 Facial 46 12/08/17 05:00 81 39 124/42 98 Bi-pap 50 12/08/17 04:00 74 12/08/17 04:00 98.2 68 44 132/45 97 Bi-pap 50 98.2 12/08/17 04:00 60 12/08/17 03:30 73 48 95 Facial 45 12/08/17 03:00 68 39 132/45 98 Bi-pap 50 12/08/17 02:00 67 40 131/47 98 Bi-pap 50 12/08/17 01:30 77 43 99 Facial 45 12/08/17 01:00 66 35 126/51 100 Bi-pap 50 12/08/17 00:00 60 12/08/17 00:00 98.5 70 33 126/51 98 Bi-pap 50 98.5 12/08/17 00:00 62 126/51 12/08/17 00:00 69 12/07/17 23:22 69 44 100 Facial 50 12/07/17 23:00 100 12/07/17 23:00 70 34 135/52 95 Bi-pap 50 12/07/17 22:00 65 34 116/52 98 Bi-pap 50 12/07/17 21:00 66 34 116/69 96 Bi-pap 50 12/07/17 20:16 76 150/57 12/07/17 20:00 98.8 77 34 145/58 93 Venturi Mask 40 98.8 12/07/17 20:00 73 12/07/17 19:30 Venturi Mask 12.0 40 12/07/17 19:30 40 12/07/17 19:30 94 Venturi Mask 12.0 40 12/07/17 18:00 71 36 144/75 97 Venturi Mask 40 Status: awake Condition: critical Lungs: rhonchi Heart: HR/BP stable Abdomen: soft, non-tender Extremities: edema Decubiti: location Micro: Microbiology Date/Time Source Procedure Growth Status 12/06/17 05:30 Stool Clostridium difficile Toxin Assay - Final Complete Critical Care - Subjective ROS Limited/Unobtainable: Yes Condition: critical FI02: 70 Vent Support Breath Rate: 12 Vent Support Mode: CPAP Vent Tidal Volume: 600 Sputum Amount: Moderate PEEP: 5.0 PIP: 18 Tube Feeding Amount: 65 I&O: Intake and Output 12/07/17 12/08/17 19:00 07:00 Intake Total 1177.5 ml 1819.167 ml Output Total 1475 ml 790 ml Balance -297.5 ml 1029.167 ml Intake Free Water 100 ml IV Total 492.5 ml 1039.167 ml Tube Feeding 585 ml 780 ml Output Urine Total 1475 ml 790 ml # Bowel Movements 7 1 Subjective: placed on bipap post self extubation yesterday on 70% FIO2 sats 100% at thist markel abg stable on bipap much more awake moderate tachypnic moist cough no bleeding positive uop no pressors CXR: bialteral infiltrates unchanged Labs: Laboratory Tests Test 12/08/17 04:00 12/08/17 07:50 White Blood Count 7.5 K/UL (4.8-10.8) Red Blood Count 4.55 M/UL (4.70-6.10) L Hemoglobin 13.7 G/DL (14.2-18.0) #L Hematocrit 42.2 % (42.0-52.0) # Mean Corpuscular Volume 93 FL (80-99) Mean Corpuscular Hemoglobin 30.2 PG (27.0-31.0) Mean Corpuscular Hemoglobin Concent 32.5 G/DL (32.0-36.0) Red Cell Distribution Width 16.7 % (11.6-14.8) H Platelet Count 317 K/UL (150-450) Mean Platelet Volume 8.9 FL (6.5-10.1) Neutrophils (%) (Auto) 73.8 % (45.0-75.0) Lymphocytes (%) (Auto) 16.8 % (20.0-45.0) L Monocytes (%) (Auto) 7.8 % (1.0-10.0) Eosinophils (%) (Auto) 0.7 % (0.0-3.0) Basophils (%) (Auto) 0.9 % (0.0-2.0) Sodium Level 134 MMOL/L (136-145) L Potassium Level 4.6 MMOL/L (3.5-5.1) Chloride Level 99 MMOL/L (98-107) Carbon Dioxide Level 26 MMOL/L (21-32) Anion Gap 10 mmol/L (5-15) Blood Urea Nitrogen 11 mg/dL (7-18) Creatinine 1.0 MG/DL (0.55-1.30) Estimat Glomerular Filtration Rate mL/min (>60) Glucose Level 121 MG/DL (74-106) H Calcium Level 8.1 MG/DL (8.5-10.1) L Arterial Blood pH 7.440 (7.350-7.450) Arterial Blood Partial Pressure CO2 37.9 mmHg (35.0-45.0) Arterial Blood Partial Pressure O2 132.2 mmHg (75.0-100.0) H Arterial Blood HCO3 25.2 mmol/L (22.0-26.0) Arterial Blood Oxygen Saturation 98.6 % (92.0-98.0) H Arterial Blood Base Excess 1.2 Chepe Test Positive Current Medications Medications (Trade) Dose Ordered Sig/Scot Route PRN Reason Start Time Stop Time Status Last Admin Dose Admin Acetaminophen (Tylenol) 650 mg Q4H PRN ORAL Mild Pain/Temp > 100.5 12/05/17 15:30 01/04/18 15:29 12/06/17 09:10 Albuterol/ Ipratropium (Albuterol/ Ipratropium) 3 ml Q4H PRN HHN Shortness of Breath 12/07/17 21:00 12/12/17 20:59 Aspirin (ASA) 81 mg DAILY NG 11/26/17 09:00 12/26/17 08:59 12/08/17 08:27 Bismuth Subsalicylate (Pepto-Bismol) 30 ml TID ORAL 12/06/17 15:30 01/05/18 15:29 12/08/17 17:32 Dextrose 1,000 ml @ 25 mls/hr Q24H IV 12/04/17 14:00 01/03/18 13:59 12/08/17 13:24 Diltiazem HCl (Cardizem) 60 mg EVERY 6 HOURS ORAL 11/25/17 18:00 12/25/17 17:59 12/08/17 17:33 Heparin Sodium (Porcine) (Heparin 5000 units/ml) 5,000 units EVERY 12 HOURS SUBQ 11/25/17 21:00 12/25/17 20:59 12/08/17 08:37 Magnesium Oxide (Mag-Ox 400mg) 400 mg THREE TIMES A DAY ORAL 11/26/17 18:00 12/26/17 17:59 12/08/17 17:32 Metoprolol Tartrate (Lopressor) 25 mg Q12HR ORAL 11/25/17 21:00 12/25/17 20:59 12/08/17 08:28 Pantoprazole (Protonix) 40 mg DAILY IVP 11/26/17 10:15 12/26/17 10:14 12/08/17 08:27 Piperacillin Sod/ Tazobactam Sod 3.375 gm/Dextrose 110 ml @ 27.5 mls/hr EVERY 8 HOURS IVPB 12/02/17 14:00 12/13/17 13:59 12/08/17 13:24 Risperidone (RisperDAL) 0.25 mg Q6H PRN ORAL Agitation 12/01/17 12:30 12/31/17 12:29 Vancomycin HCl (Vanco rx to dose) 1 ea DAILY PRN MISC Per rx protocol 11/25/17 17:30 12/25/17 17:29 Vancomycin HCl/ Dextrose 250 ml @ 166.667 mls/hr Q24H IVPB 11/26/17 20:00 12/10/17 19:59 12/07/17 20:15 Vitamin A/Vitamin D (A & D Oint) 1 applic EVERY 12 HOURS TOPIC 11/28/17 21:00 12/28/17 20:59 12/08/17 08:29 Microbiology Date/Time Source Procedure Growth Status 12/06/17 05:30 Stool Clostridium difficile Toxin Assay - Final Complete PIERRE GRIFFIN 25, 2018 17:55
[2017-12-08] MEDS: Vancomycin 1250mg/D5W 250ml IVPB SCH (19:53)
[2017-12-09] VITALS (12 sets, daily range): BP systolic 109–137; BP diastolic 4–55
[2017-12-09] MEDS: dilTIAZem HCl 60mg tab ORAL SCH ×4 (00:15→17:29)
--- NOTE | 2017-12-09 00:45 | Progress Note ---
DATE: 12/08/2017 CARDIOLOGY PROGRESS NOTE SUBJECTIVE: The patient is no longer on ventilator support. He is on BiPAP. He required aggressive respiratory hygiene and suctioning. OBJECTIVE: VITAL SIGNS: Blood pressure 138/66, pulse 89, and respiratory rate is 29 to 43. The patient is afebrile. LUNGS: Bilateral breath sounds with rhonchi. HEART: Irregularly irregular rhythm. Normal S1 and S2. ABDOMEN: Soft. EXTREMITIES: Trace edema. LABORATORY AND DIAGNOSTIC DATA: White count 7.5 and hemoglobin 13.7. Sodium 134, BUN 11, and creatinine 1. ABG, 7.44, 38, and 132. Chest x-ray today reveals stable chest with moderate right pleural effusion, possibly loculated. IMPRESSION: 1. Respiratory failure, status post extubation. 2. Acute on chronic diastolic and systolic congestive heart failure. 3. Paroxysmal atrial fibrillation. 4. Right pleural effusion. 5. Permanent pacemaker with stable function. 6. Dysphagia with gastrostomy tube. 7. Hypertensive heart disease. PLAN: 1. Consider thoracentesis. 2. Continue aggressive respiratory therapy. 3. Diuresis efforts. 4. Replace electrolytes as needed. Chay Godinez M.D. DR: Luis Enrique JOB#: [id number] CC:
[2017-12-09] MEDS: Piperacillin/Tazobactam 3.375 GM in D5W 110 ML IVPB SCH ×3 (05:50→23:01)
[2017-12-09 05:53] LABS: EOSINOPHILS % (AUTO) 0.2 % (0.0-3.0); HEMATOCRIT 35.4 % (42.0-52.0); HEMOGLOBIN 11.5 G/DL (14.2-18.0); LYMPHOCYTES % (AUTO) 7.5 % (20.0-45.0); MEAN CORPUSCULAR VOLUME 93 FL (80-99); MONOCYTES % (AUTO) 6.9 % (1.0-10.0); NEUTROPHILS % (AUTO) 84.5 % (45.0-75.0); PLATELET COUNT 319 K/UL (150-450); RED BLOOD COUNT 3.82 M/UL (4.70-6.10); RED CELL DISTRIBUTION WIDTH 16.1 % (11.6-14.8); WHITE BLOOD COUNT 13.8 K/UL (4.8-10.8)
[2017-12-09 06:10] LABS: ANION GAP 5 mmol/L (5-15); BLOOD UREA NITROGEN 10 mg/dL (7-18); CALCIUM 7.9 MG/DL (8.5-10.1); CARBON DIOXIDE 30 MMOL/L (21-32); CHLORIDE 101 MMOL/L (98-107); POTASSIUM 4.9 MMOL/L (3.5-5.1); SODIUM 135 MMOL/L (136-145)
[2017-12-09] MEDS: Bismuth Subsalicylate 30ml ORAL SCH ×3 (09:22→17:29)
[2017-12-09] MEDS: Magnesium Oxide 400mg tab ORAL SCH ×3 (09:23→17:29)
[2017-12-09] MEDS: Pantoprazole Inj IVP SCH (09:23)
[2017-12-09] MEDS: Aspirin Baby 81mg NG SCH (09:23)
[2017-12-09] MEDS: Metoprolol 25mg tab ORAL SCH ×2 (09:24→21:00)
[2017-12-09] MEDS: Heparin 5000 units/ml inj SUBQ SCH ×2 (09:26→21:00)
[2017-12-09] MEDS: Vitamin A&D Oint 2oz Tube TOPIC SCH ×2 (09:26→21:36)
--- NOTE | 2017-12-09 10:59 | Diagnostic Imaging Report ---
Indication: COPD Technique: One view of the chest Comparison: 12/08/2017 Findings: Extensive diffuse bilateral interstitial and airspace disease is again demonstrated. Large right pleural effusion is again demonstrated. Right chest bifocal pacemaker is noted. Findings are overall unchanged Impression: Unchanged, over one day, findings as above.
--- NOTE | 2017-12-09 12:11 | Pulmonology Progress Note ---
Assessment/Plan Assessment/Plan 1. Pneumonia, healthcare acquired due to s aureus 2. Pleural effusions. 3. Chronic systolic congestive heart failure. 4. Hypotension, due to septic shock, improved. 5. Elevation of troponin, possible acute coronary syndrome. 6. History of CVA with dysarthria and dysphagia. 7. Respiratory failure acute on chronic. 8. Septic shock. 9. Indwelling Reyes 10. GT 11. sp self extubation continue on bipap may require reintubation if not improved nebs and suction NPO abx wound care negative io check labs transferred to [facility] Subjective Interval Events: Remains on BiPAP. ABG adequate. Self extubated 2 days Constitutional: Reports: no symptoms HEENT: Repors: no symptoms Respiratory: Reports: no symptoms Cardiovascular: Reports: no symptoms Gastrointestinal/Abdominal: Reports: no symptoms Genitourinary: Reports: no symptoms Neurologic: Reports: no symptoms Allergies: Coded Allergies: VINCENT INHIBITORS (Verified Allergy, Mild, 08/06/17) SHELLFISH (Verified Allergy, Unknown, 07/01/11) Objective Last 24 Hour Vital Signs Date Time Temp Pulse Resp B/P (MAP) Pulse Ox O2 Delivery O2 Flow Rate FiO2 12/09/17 10:32 66 39 95 Full Face 70 12/09/17 09:24 68 138/49 12/09/17 09:15 72 42 98 Full Face 70 12/09/17 08:00 97.9 71 30 122/48 99 Bi-pap 70 97.9 12/09/17 08:00 70 12/09/17 08:00 70 12/09/17 07:12 84 39 95 Full Face 70 12/09/17 07:00 60 35 118/40 100 Bi-pap 70 12/09/17 06:00 71 35 121/42 100 Bi-pap 70 12/09/17 05:50 63 133/48 12/09/17 05:24 84 39 95 Full Face 70 12/09/17 05:00 63 35 133/48 100 Bi-pap 70 12/09/17 04:00 66 12/09/17 04:00 98.0 66 36 123/54 100 Bi-pap 70 98.0 12/09/17 03:30 60 40 97 Full Face 70 12/09/17 03:00 66 36 126/50 100 Bi-pap 70 12/09/17 02:00 61 36 111/36 100 Bi-pap 70 12/09/17 01:30 64 43 98 Facial 70 12/09/17 01:00 73 36 118/4 99 Bi-pap 70 12/09/17 00:15 81 118/47 12/09/17 00:00 79 12/09/17 00:00 98.2 79 36 118/47 99 Bi-pap 70 98.2 12/08/17 23:00 75 33 115/40 99 Bi-pap 70 12/08/17 22:51 78 35 94 Facial 70 12/08/17 22:00 83 37 122/54 94 Bi-pap 70 12/08/17 21:30 76 32 95 Facial 70 12/08/17 21:01 95 151/54 12/08/17 21:00 83 36 128/53 98 Bi-pap 70 12/08/17 20:00 98.0 88 38 151/54 98 Bi-pap 70 98.0 12/08/17 20:00 88 12/08/17 19:30 90 49 94 Facial 70 12/08/17 19:00 98 35 133/74 98 Bi-pap 70 12/08/17 18:00 92 35 132/74 98 Bi-pap 70 12/08/17 17:33 89 138/66 12/08/17 17:26 92 43 99 Full Face 70 12/08/17 17:00 95 30 115/51 98 Bi-pap 70 12/08/17 16:00 97 12/08/17 16:00 98.5 98 29 115/51 98 Bi-pap 70 98.5 12/08/17 15:05 76 42 98 Full Face 70 12/08/17 15:00 81 36 125/54 98 Bi-pap 70 12/08/17 14:00 78 36 123/49 98 Bi-pap 70 12/08/17 13:00 70 36 122/49 98 Bi-pap 70 12/08/17 12:45 72 47 100 Full Face 70 Intake and Output 12/08/17 12/09/17 19:00 07:00 Intake Total 1015.0 ml 1190 ml Output Total 1400 ml 671 ml Balance -385.0 ml 519 ml Intake Free Water 110 ml IV Total 495.0 ml 300 ml Tube Feeding 520 ml 780 ml Output Urine Total 1400 ml 670 ml Stool Total 1 ml # Bowel Movements 2 General Appearance: no acute distress HEENT: normocephalic Respiratory/Chest: chest wall non-tender, lungs clear Cardiovascular: normal peripheral pulses, normal rate Abdomen: normal bowel sounds, soft, non tender Extremities: no cyanosis Laboratory Tests 12/09/17 05:20: White Blood Count 13.8#H, Red Blood Count 3.82L, Hemoglobin 11.5L, Hematocrit 35.4L, Mean Corpuscular Volume 93, Mean Corpuscular Hemoglobin 30.2, Mean Corpuscular Hemoglobin Concent 32.6, Red Cell Distribution Width 16.1H, Platelet Count 319, Mean Platelet Volume 8.9, Neutrophils (%) (Auto) 84.5H, Lymphocytes (%) (Auto) 7.5L, Monocytes (%) (Auto) 6.9, Eosinophils (%) (Auto) 0.2, Basophils (%) (Auto) 1.0, Sodium Level 135L, Potassium Level 4.9, Chloride Level 101, Carbon Dioxide Level 30, Anion Gap 5, Blood Urea Nitrogen 10, Creatinine 1.0, Estimat Glomerular Filtration Rate , Glucose Level 120H, Calcium Level 7.9L 12/09/17 08:00: Arterial Blood pH 7.400, Arterial Blood Partial Pressure CO2 47.6H, Arterial Blood Partial Pressure O2 52.9L, Arterial Blood HCO3 29.0H, Arterial Blood Oxygen Saturation 87.9L, Arterial Blood Base Excess 3.5, Chepe Test Positive Current Medications Medications (Trade) Dose Ordered Sig/Scot Route PRN Reason Start Time Stop Time Status Last Admin Dose Admin Acetaminophen (Tylenol) 650 mg Q4H PRN ORAL Mild Pain/Temp > 100.5 12/09/17 15:30 01/04/18 15:29 UNV Albuterol/ Ipratropium (Albuterol/ Ipratropium) 3 ml Q4H PRN HHN Shortness of Breath 12/09/17 13:00 12/12/17 20:59 UNV Aspirin (ASA) 81 mg DAILY NG 12/10/17 09:00 12/26/17 08:59 UNV Bismuth Subsalicylate (Pepto-Bismol) 30 ml TID ORAL 12/09/17 13:00 01/05/18 15:29 UNV Dextrose 1,000 ml @ 25 mls/hr Q24H IV 12/09/17 11:30 01/03/18 13:59 UNV Diltiazem HCl (Cardizem) 60 mg EVERY 6 HOURS ORAL 12/09/17 12:00 12/25/17 17:59 UNV Heparin Sodium (Porcine) (Heparin 5000 units/ml) 5,000 units EVERY 12 HOURS SUBQ 12/09/17 21:00 12/25/17 20:59 UNV Magnesium Oxide (Mag-Ox 400mg) 400 mg THREE TIMES A DAY ORAL 12/09/17 13:00 12/26/17 17:59 UNV Metoprolol Tartrate (Lopressor) 25 mg Q12HR ORAL 12/09/17 21:00 12/25/17 20:59 UNV Pantoprazole (Protonix) 40 mg DAILY IVP 12/10/17 09:00 12/26/17 10:14 UNV Piperacillin Sod/ Tazobactam Sod 3.375 gm/Dextrose 110 ml @ 27.5 mls/hr EVERY 8 HOURS IVPB 12/09/17 14:00 12/13/17 13:59 UNV Risperidone (RisperDAL) 0.25 mg Q6H PRN ORAL Agitation 12/09/17 12:30 12/31/17 12:29 UNV Vancomycin HCl (Vanco rx to dose) 1 ea DAILY PRN MISC Per rx protocol 12/10/17 09:00 12/25/17 17:29 UNV Vancomycin HCl/ Dextrose 250 ml @ 166.667 mls/hr Q24H IVPB 12/09/17 20:00 12/10/17 19:59 UNV Vitamin A/Vitamin D (A & D Oint) 1 applic EVERY 12 HOURS TOPIC 12/09/17 21:00 12/28/17 20:59 UNV Davy Smith MD Dec 09, 2017 12:11
[2017-12-09] MEDS ORDERED: Albuterol/Ipratropium 3ml neb HHN PRN (13:00)
--- NOTE | 2017-12-09 18:58 | General Progress Note ---
Assessment/Plan Problem List: (1) Chronic obstructive asthma with status asthmaticus ICD Codes: J44.9 - Chronic obstructive asthma with status asthmaticus SNOMED: 4563193089216 (2) CHF (congestive heart failure), NYHA class III ICD Codes: I50.9 - Heart failure, unspecified SNOMED: 631623087, 754415007 (3) Thrombocytopenia ICD Codes: D69.6 - Thrombocytopenia, unspecified SNOMED: 011704098 (4) Anemia ICD Codes: D64.9 - Anemia SNOMED: 451166522 Qualifiers: (5) 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 ICD Codes: I69.922 - 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 SNOMED: 321725379 (6) Pleural effusion ICD Codes: J90 - Pleural effusion, not elsewhere classified SNOMED: 68690343 (7) 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 ICD Codes: M51.26 - Other intervertebral disc displacement, lumbar region SNOMED: 99994367 (8) Urinary retention ICD Codes: R33.9 - Retention of urine, unspecified SNOMED: 509825843 (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) ICD Codes: D50.0 - Iron deficiency anemia secondary to blood loss (chronic) SNOMED: 72941207, 525441203 (10) Atrial fibrillation ICD Codes: I48.91 - Atrial fibrillation SNOMED: 72950738 Qualifiers: Qualified Codes: I48.2 - Chronic atrial fibrillation (11) Pneumonia ICD Codes: J18.9 - Pneumonia, unspecified organism SNOMED: 994508587 Qualifiers: Qualified Codes: J18.9 - Pneumonia, unspecified organism (12) Acute respiratory failure ICD Codes: J96.00 - Acute respiratory failure, unspecified whether with hypoxia or hypercapnia SNOMED: 60071462 Qualifiers: Qualified Codes: J96.01 - Acute respiratory failure with hypoxia (13) Hypernatremia ICD Codes: E87.0 - Hyperosmolality and hypernatremia SNOMED: 96017600 (14) Diarrhea ICD Codes: R19.7 - Diarrhea, unspecified SNOMED: 24450824 (15) Sacral decubitus ulcer ICD Codes: L89.159 - Pressure ulcer of sacral region, unspecified stage SNOMED: 317028767 Assessment/Plan HC acquired pneumonia, possible aspiration, continue vanco and zosyn, mrsa pneumonia, vre colonized, enterococcal uti chf, parox afib , continue meds, replaceK hypernatremia give free water improving, reduce iv d5w anemia, order venofer , trend lab high risk, daughter aware, full code not weaning, may need trach--call to daughter, she gives consent. n Dr. Anali Green to schedule trach. Anemia and CAD warrents transfusion. Mild high gastric residuals, no nausea, d/w nurse diarrhea check c diff, neg, symptomatic care, wound care self extubated, observeon oxygen mask,now bipap, mod -severe distress at risk for reintubation, lasix 40 today Subjective ROS Limited/Unobtainable: Yes Allergies: Coded Allergies: VINCENT INHIBITORS (Verified Allergy, Mild, 08/06/17) SHELLFISH (Verified Allergy, Unknown, 07/01/11) Subjective alert weak s/p self extubation Objective Last 24 Hour Vital Signs Date Time Temp Pulse Resp B/P (MAP) Pulse Ox O2 Delivery O2 Flow Rate FiO2 12/09/17 17:29 68 137/55 12/09/17 17:12 68 38 97 Full Face 80 12/09/17 16:00 97.7 71 28 137/55 95 Bi-pap 80 97.7 12/09/17 16:00 80 12/09/17 16:00 70 12/09/17 14:47 74 47 95 Full Face 80 12/09/17 13:39 65 109/45 12/09/17 13:13 65 43 93 Full Face 70 12/09/17 12:00 70 12/09/17 12:00 97.9 91 30 109/45 99 Bi-pap 70 97.9 12/09/17 12:00 94 12/09/17 10:32 66 39 95 Full Face 70 12/09/17 09:24 68 138/49 12/09/17 09:15 72 42 98 Full Face 70 12/09/17 08:00 97.9 71 30 122/48 99 Bi-pap 70 97.9 12/09/17 08:00 70 12/09/17 08:00 70 12/09/17 07:12 84 39 95 Full Face 70 12/09/17 07:00 60 35 118/40 100 Bi-pap 70 12/09/17 06:00 71 35 121/42 100 Bi-pap 70 12/09/17 05:50 63 133/48 12/09/17 05:24 84 39 95 Full Face 70 12/09/17 05:00 63 35 133/48 100 Bi-pap 70 12/09/17 04:00 66 12/09/17 04:00 98.0 66 36 123/54 100 Bi-pap 70 98.0 12/09/17 03:30 60 40 97 Full Face 70 12/09/17 03:00 66 36 126/50 100 Bi-pap 70 12/09/17 02:00 61 36 111/36 100 Bi-pap 70 12/09/17 01:30 64 43 98 Facial 70 12/09/17 01:00 73 36 118/4 99 Bi-pap 70 12/09/17 00:15 81 118/47 12/09/17 00:00 79 12/09/17 00:00 98.2 79 36 118/47 99 Bi-pap 70 98.2 12/08/17 23:00 75 33 115/40 99 Bi-pap 70 12/08/17 22:51 78 35 94 Facial 70 12/08/17 22:00 83 37 122/54 94 Bi-pap 70 12/08/17 21:30 76 32 95 Facial 70 12/08/17 21:01 95 151/54 12/08/17 21:00 83 36 128/53 98 Bi-pap 70 12/08/17 20:00 98.0 88 38 151/54 98 Bi-pap 70 98.0 12/08/17 20:00 88 12/08/17 19:30 90 49 94 Facial 70 12/08/17 19:00 98 35 133/74 98 Bi-pap 70 Intake and Output 12/08/17 12/09/17 19:00 07:00 Intake Total 1015.0 ml 1190 ml Output Total 1400 ml 671 ml Balance -385.0 ml 519 ml Intake Free Water 110 ml IV Total 495.0 ml 300 ml Tube Feeding 520 ml 780 ml Output Urine Total 1400 ml 670 ml Stool Total 1 ml # Bowel Movements 2 Laboratory Tests 12/09/17 05:20: White Blood Count 13.8#H, Red Blood Count 3.82L, Hemoglobin 11.5L, Hematocrit 35.4L, Mean Corpuscular Volume 93, Mean Corpuscular Hemoglobin 30.2, Mean Corpuscular Hemoglobin Concent 32.6, Red Cell Distribution Width 16.1H, Platelet Count 319, Mean Platelet Volume 8.9, Neutrophils (%) (Auto) 84.5H, Lymphocytes (%) (Auto) 7.5L, Monocytes (%) (Auto) 6.9, Eosinophils (%) (Auto) 0.2, Basophils (%) (Auto) 1.0, Sodium Level 135L, Potassium Level 4.9, Chloride Level 101, Carbon Dioxide Level 30, Anion Gap 5, Blood Urea Nitrogen 10, Creatinine 1.0, Estimat Glomerular Filtration Rate , Glucose Level 120H, Calcium Level 7.9L 12/09/17 08:00: Arterial Blood pH 7.400, Arterial Blood Partial Pressure CO2 47.6H, Arterial Blood Partial Pressure O2 52.9L, Arterial Blood HCO3 29.0H, Arterial Blood Oxygen Saturation 87.9L, Arterial Blood Base Excess 3.5, Chepe Test Positive Height (Feet): 6 Height (Inches): 0.00 Weight (Pounds): 129 General Appearance: alert, severe distress, thin EENT: normal ENT inspection Neck: normal alignment Cardiovascular: regularly irregular Respiratory/Chest: accessory muscle use, rhonchi - bilaterally Abdomen: non tender Edema: no edema noted Arm (L), no edema noted Arm (R), no edema noted Leg (L), no edema noted Leg (R), no edema noted Pedal (L), no edema noted Pedal (R), no edema noted Generalized Neurologic: coldfusion II-XII grossly normal Objective alert on vent HODAN GAYTAN Dec 09, 2017 18:58
[2017-12-09] MEDS ORDERED: Vancomycin 1250mg/D5W 250ml 250 ML IVPB SCH (20:00)
--- NOTE | 2017-12-09 21:32 | Wound Care Consultation ---
Wound Assessment Wound Assessment : Wound Number: 1 Wound Present on Admission: No New Wound: Yes Status Change of Wound: No Wound Location Body Site Modif: mid Wound Location Body Site: other - Sacral area extending to left and right buttocks Wound Type: pressure ulcer Krissy Test: Does not Krissy Pressure Ulcer Stage: Unstageable Wound Thickness: Full Thickness Wound Length: 8.5 Wound Width: 8.5 Wound Depth: utd Percent of Wound [place]/Red: 20 Percent of Wound Bed Yellow/Wh: 70 Percent of Wound Purple/Maroon: 10 Wound Drainage Description: Serosanguineous Wound Drainage Amount: Moderate Wound Drainage Odor: None/Absent Tissue Surrounding Wound: Erythemic Wound General Appearance: Reddened - yellow.purple, Draining Wound Comment #1 Sacral area extending to left and right buttocks unstageable pressure ulcer. Recommendation -Local wound care per protocol -Keep clean and dry -Turn and reposition -Optimize nutrition -Low air loss mattress -Offload both heels -Heel protector on both heels -Assess and f/u accordingly for any changes TAMMIE DONALDSON RN Dec 09, 2017 21:32
[2017-12-10] VITALS: BP 135/65
[2017-12-10] MEDS: dilTIAZem HCl 60mg tab ORAL SCH ×5 (00:10→23:58)
--- NOTE | 2017-12-10 03:16 | Progress Note ---
DATE: 12/09/2017 CARDIOLOGY PROGRESS NOTE SUBJECTIVE: The patient remains off ventilator support. No respiratory distress. Monitored unit atrial fibrillation with demand ventricular pacing. OBJECTIVE: LUNGS: Few rhonchi. HEART: Irregularly irregular rhythm. Normal S1. Paradoxically split S2. ABDOMEN: Soft. G-tube intact. EXTREMITIES: Trace edema. LABORATORY AND DIAGNOSTIC DATA: White count 13.8 and hemoglobin 11.5. BUN 10 and creatinine 1. ABG 7.40, 47, and 53. IMPRESSION: 1. Respiratory failure status post extubation. 2. Hypoxia. 3. Acute on chronic diastolic congestive heart failure right pleural effusion. 4. Permanent pacemaker. 5. Paroxysmal atrial fibrillation. PLAN: 1. Continue with BiPAP support as needed. 2. Respiratory hygiene. 3. Diuresis. 4. Consider thoracentesis. 5. Maintain current cardiovascular regimen for anti-failure benefits. Chay Godinez M.D. DR: Luis Enrique JOB#: [id number] CC:
[2017-12-10 04:00] VITALS: BP 145/54
[2017-12-10 04:34] LABS: HEMATOCRIT 31.7 % (42.0-52.0); HEMOGLOBIN 10.3 G/DL (14.2-18.0); MEAN CORPUSCULAR VOLUME 92 FL (80-99); PLATELET COUNT 351 K/UL (150-450); RED BLOOD COUNT 3.43 M/UL (4.70-6.10); WHITE BLOOD COUNT 16.9 K/UL (4.8-10.8)
[2017-12-10 04:45] LABS: ANION GAP 3 mmol/L (5-15); BLOOD UREA NITROGEN 15 mg/dL (7-18); CALCIUM 8.1 MG/DL (8.5-10.1); CARBON DIOXIDE 33 MMOL/L (21-32); CHLORIDE 99 MMOL/L (98-107); CREATININE 0.9 MG/DL (0.55-1.30); POTASSIUM 4.1 MMOL/L (3.5-5.1); SODIUM 135 MMOL/L (136-145)
[2017-12-10 05:06] LABS: INR 1.3 (0.9-1.1)
[2017-12-10] MEDS: Piperacillin/Tazobactam 3.375 GM in D5W 110 ML IVPB SCH ×3 (05:48→22:09)
[2017-12-10] MEDS ORDERED: Lidocaine 1% 10mg/ml/Epi 0.005mg/ml 30ml vial INJ ONE (07:23)
[2017-12-10 08:00] VITALS: BP 132/50
--- NOTE | 2017-12-10 08:34 | Pulmonology Progress Note ---
Assessment/Plan Assessment/Plan 1. Pneumonia, healthcare acquired due to s aureus 2. Pleural effusions. 3. Chronic systolic congestive heart failure. 4. Hypotension, due to septic shock, improved. 5. Elevation of troponin, possible acute coronary syndrome. 6. History of CVA with dysarthria and dysphagia. 7. Respiratory failure acute on chronic. 8. Septic shock. 9. Indwelling Reyes 10. GT 11. sp self extubation continue on bipap may require reintubation if not improved plns noted for trach Has moderate R effusion; will request thoracentesis nebs and suction NPO abx wound care negative io check labs transferred to [facility] Subjective Interval Events: Reamins on BiPAP Constitutional: Reports: no symptoms HEENT: Repors: no symptoms Respiratory: Reports: no symptoms Cardiovascular: Reports: no symptoms Gastrointestinal/Abdominal: Reports: no symptoms Genitourinary: Reports: no symptoms Allergies: Coded Allergies: VINCENT INHIBITORS (Verified Allergy, Mild, 08/06/17) SHELLFISH (Verified Allergy, Unknown, 07/01/11) Objective Last 24 Hour Vital Signs Date Time Temp Pulse Resp B/P (MAP) Pulse Ox O2 Delivery O2 Flow Rate FiO2 12/10/17 08:00 98.3 67 42 132/50 98 Bi-pap 80 98.3 12/10/17 08:00 80 12/10/17 07:10 76 42 99 Facial 75 12/10/17 05:49 69 136/70 12/10/17 05:10 94 36 97 Facial 80 12/10/17 04:00 67 12/10/17 04:00 80 12/10/17 04:00 98.0 70 18 145/54 96 Bi-pap 80 98.0 12/10/17 03:21 87 32 98 Facial 80 12/10/17 01:10 98 36 95 Facial 80 12/10/17 00:10 78 136/67 12/10/17 00:00 73 12/10/17 00:00 80 12/10/17 00:00 98.5 76 18 135/65 95 Bi-pap 80 98.5 12/09/17 23:07 93 39 98 Full Face 80 12/09/17 21:10 81 43 97 Full Face 80 12/09/17 21:00 58 125/50 12/09/17 20:00 97.9 60 28 125/50 95 Bi-pap 80 97.9 12/09/17 20:00 80 12/09/17 20:00 69 12/09/17 19:02 72 45 95 Full Face 80 12/09/17 17:29 68 137/55 12/09/17 17:12 68 38 97 Full Face 80 12/09/17 16:00 97.7 71 28 137/55 95 Bi-pap 80 97.7 12/09/17 16:00 80 12/09/17 16:00 70 12/09/17 14:47 74 47 95 Full Face 80 12/09/17 13:39 65 109/45 12/09/17 13:13 65 43 93 Full Face 70 12/09/17 12:00 70 12/09/17 12:00 97.9 91 30 109/45 99 Bi-pap 70 97.9 12/09/17 12:00 94 12/09/17 10:32 66 39 95 Full Face 70 12/09/17 09:24 68 138/49 12/09/17 09:15 72 42 98 Full Face 70 Intake and Output 12/09/17 12/10/17 19:00 07:00 Intake Total 1150 ml 620.000 ml Output Total 400 ml 1500 ml Balance 750 ml -880.000 ml Intake Free Water 200 ml IV Total 110 ml 360.000 ml Tube Feeding 780 ml 260 ml Other 60 ml Output Urine Total 400 ml 1500 ml # Bowel Movements 2 General Appearance: no acute distress HEENT: normocephalic Respiratory/Chest: decreased breath sounds Cardiovascular: normal peripheral pulses Abdomen: normal bowel sounds Laboratory Tests 12/09/17 19:20: Vancomycin Level Trough 14.2H 12/10/17 04:00: White Blood Count 16.9H, Red Blood Count 3.43L, Hemoglobin 10.3L, Hematocrit 31.7L, Mean Corpuscular Volume 92, Mean Corpuscular Hemoglobin 30.2, Mean Corpuscular Hemoglobin Concent 32.6, Red Cell Distribution Width 16.0H, Platelet Count 351, Mean Platelet Volume 8.5, Neutrophils (%) (Auto) , Lymphocytes (%) (Auto) , Monocytes (%) (Auto) , Eosinophils (%) (Auto) , Basophils (%) (Auto) , Neutrophils % (Manual) [Pending], Lymphocytes % (Manual) [Pending], Platelet Estimate [Pending], Platelet Morphology [Pending], Prothrombin Time 13.4H, Prothromb Time International Ratio 1.3H, Activated Partial Thromboplast Time 40H, Sodium Level 135L, Potassium Level 4.1, Chloride Level 99, Carbon Dioxide Level 33H, Anion Gap 3L, Blood Urea Nitrogen 15, Creatinine 0.9, Estimat Glomerular Filtration Rate , Glucose Level 135H, Calcium Level 8.1L, Pro-B-Type Natriuretic Peptide [id number] Current Medications Medications (Trade) Dose Ordered Sig/Scot Route PRN Reason Start Time Stop Time Status Last Admin Dose Admin Acetaminophen (Tylenol) 650 mg Q4H PRN ORAL Mild Pain/Temp > 100.5 12/09/17 15:30 01/04/18 15:29 Albuterol/ Ipratropium (Albuterol/ Ipratropium) 3 ml Q4H PRN HHN Shortness of Breath 12/09/17 13:00 12/12/17 20:59 Aspirin (ASA) 81 mg DAILY NG 12/10/17 09:00 12/26/17 08:59 Bismuth Subsalicylate (Pepto-Bismol) 30 ml TID ORAL 12/09/17 13:00 01/05/18 15:29 12/09/17 17:29 Collagenase (Santyl) 1 applic DAILY TOPIC 12/10/17 09:00 01/09/18 08:59 Diltiazem HCl (Cardizem) 60 mg EVERY 6 HOURS ORAL 12/09/17 12:00 12/25/17 17:59 12/10/17 05:49 Furosemide (Lasix) 40 mg DAILY IV 12/10/17 09:00 01/09/18 08:59 Heparin Sodium (Porcine) (Heparin 5000 units/ml) 5,000 units EVERY 12 HOURS SUBQ 12/09/17 21:00 12/25/17 20:59 Magnesium Oxide (Mag-Ox 400mg) 400 mg THREE TIMES A DAY ORAL 12/09/17 13:00 12/26/17 17:59 12/09/17 17:29 Metoprolol Tartrate (Lopressor) 25 mg Q12HR ORAL 12/09/17 21:00 12/25/17 20:59 Pantoprazole (Protonix) 40 mg DAILY IVP 12/10/17 09:00 12/26/17 10:14 Piperacillin Sod/ Tazobactam Sod 3.375 gm/Dextrose 110 ml @ 27.5 mls/hr EVERY 8 HOURS IVPB 12/09/17 14:00 12/13/17 13:59 12/10/17 05:48 Risperidone (RisperDAL) 0.25 mg Q6H PRN ORAL Agitation 12/09/17 12:30 12/31/17 12:29 Vancomycin HCl (Vanco rx to dose) 1 ea DAILY PRN MISC Per rx protocol 12/10/17 09:00 12/25/17 17:29 Vancomycin HCl/ Dextrose 250 ml @ 166.667 mls/hr Q24H IVPB 12/09/17 20:00 12/10/17 19:59 12/09/17 21:20 Vitamin A/Vitamin D (A & D Oint) 1 applic EVERY 12 HOURS TOPIC 12/09/17 21:00 12/28/17 20:59 12/09/17 21:36 Davy Smith MD Dec 10, 2017 08:34
[2017-12-10] MEDS: Metoprolol 25mg tab ORAL SCH ×2 (08:40→20:36)
[2017-12-10] MEDS: Magnesium Oxide 400mg tab ORAL SCH ×3 (08:40→17:12)
[2017-12-10] MEDS: Bismuth Subsalicylate 30ml ORAL SCH ×3 (08:40→17:12)
[2017-12-10] MEDS: Pantoprazole Inj IVP SCH (08:40)
[2017-12-10] MEDS: Vitamin A&D Oint 2oz Tube TOPIC SCH ×2 (08:41→20:37)
[2017-12-10] MEDS: Heparin 5000 units/ml inj SUBQ SCH ×2 (08:41→20:37)
[2017-12-10] MEDS: Aspirin Baby 81mg NG SCH (08:41)
--- NOTE | 2017-12-10 09:32 | Anethesia Preoperative Eval ---
Anesthesia Pre-op PMH/ROS General Date of Evaluation: Dec 10, 2017 Time of Evaluation: 09:15 Anesthesiologist: Allie ASA Score: ASA 4 Mallampati Score Class I : Soft palate, uvula, fauces, pillars visible Class II: Soft palate, uvula, fauces visible Class III: Soft palate, base of uvula visible Class IV: Only hard plate visible Mallampati Classification: Class III Surgeon: Norma Diagnosis: Respiratory failure Surgical Procedure: Tracheostomy Anesthesia History: none Social History: smoking - h/o heavy smoking Family History: no anesthesia problems Allergies: Coded Allergies: VINCENT INHIBITORS (Verified Allergy, Mild, 08/06/17) SHELLFISH (Verified Allergy, Unknown, 07/01/11) Past Medical History Cardiovascular: Reports: HTN, CAD, arrhythmia - A fib. pacemaker in place; Denies: PR, valve dz, other Pulmonary: Reports: COPD - respiratory failure on and off intubated, REI; Denies: asthma, other Gastrointestinal/Genitourinary: Reports: GERD, CRI, other - dysphagia PEG tube in place; Denies: ESRD Neurologic/Psychiatric: Reports: depression/anxiety; Denies: dementia, CVA, TIA, other Endocrine: Denies: DM, hypothyroidism, steroids, other HEENT: Denies: cataract (L), cataract (R), glaucoma, NINILCHIK (L), NINILCHIK (R), other Hematology/Immune: Reports: anemia; Denies: DVT, bleeding disorder, other Musculoskeletal/Integumentary: Reports: DJD; Denies: OA, RA, DDD, edema, other Other: other - malnourished PMH Narrative: Recurrent admissions with respiratory failure, for need of ventilatory support, chronic pleural effusion, scheduled for repeated paracentesis today . PSxH Narrative: Pacemaker placement + see H&P Anesthesia Pre-op Phys. Exam Physician Exam Last Vital Signs Date Time Temp Pulse Resp B/P (MAP) Pulse Ox O2 Delivery O2 Flow Rate FiO2 12/10/17 08:52 64 42 97 Facial 70 12/10/17 08:40 132/50 12/10/17 08:00 98.3 98.3 12/07/17 19:30 12.0 Constitutional: NAD Neurologic: other - unable to obtaine Cardiovascular: other - IRR Respiratory: other - Mild dyspnea at rest, on CPAP mashine, diminished breath sounds R>L Gastrointestinal: S/NT/ND Airway Exam Mallampati Score: Class III MO: limited Neck: stiff ROM: limited Teeth: missing Dentures: no upper, no lower Anesthesia Pre-op A/P Labs Hematology Test 12/10/17 04:00 White Blood Count 16.9 K/UL (4.8-10.8) H Red Blood Count 3.43 M/UL (4.70-6.10) L Hemoglobin 10.3 G/DL (14.2-18.0) L Hematocrit 31.7 % (42.0-52.0) L Mean Corpuscular Volume 92 FL (80-99) Mean Corpuscular Hemoglobin 30.2 PG (27.0-31.0) Mean Corpuscular Hemoglobin Concent 32.6 G/DL (32.0-36.0) Red Cell Distribution Width 16.0 % (11.6-14.8) H Platelet Count 351 K/UL (150-450) Mean Platelet Volume 8.5 FL (6.5-10.1) Neutrophils (%) (Auto) % (45.0-75.0) Lymphocytes (%) (Auto) % (20.0-45.0) Monocytes (%) (Auto) % (1.0-10.0) Eosinophils (%) (Auto) % (0.0-3.0) Basophils (%) (Auto) % (0.0-2.0) Neutrophils % (Manual) Pending Lymphocytes % (Manual) Pending Platelet Estimate Pending Platelet Morphology Pending Coagulation Test 12/10/17 04:00 Prothrombin Time 13.4 SEC (9.30-11.50) H Prothromb Time International Ratio 1.3 (0.9-1.1) H Activated Partial Thromboplast Time 40 SEC (23-33) H Chemistry Test 12/10/17 04:00 Sodium Level 135 MMOL/L (136-145) L Potassium Level 4.1 MMOL/L (3.5-5.1) Chloride Level 99 MMOL/L (98-107) Carbon Dioxide Level 33 MMOL/L (21-32) H Anion Gap 3 mmol/L (5-15) L Blood Urea Nitrogen 15 mg/dL (7-18) Creatinine 0.9 MG/DL (0.55-1.30) Estimat Glomerular Filtration Rate mL/min (>60) Glucose Level 135 MG/DL (74-106) H Calcium Level 8.1 MG/DL (8.5-10.1) L Pro-B-Type Natriuretic Peptide 42627 pg/mL (0-125) H Risk Assessment & Plan Assessment: ASA 4 Plan: GA with ETT Pre-Antibiotics Drug: as scheduled STEPAN STAFFORD M.D. Dec 10, 2017 09:32
[2017-12-10 12:00] VITALS: BP 119/50
--- NOTE | 2017-12-10 13:05 | General Progress Note ---
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 SNOMED: 124959581 (6) Pleural effusion ICD Codes: J90 - Pleural effusion, not elsewhere classified SNOMED: 56674150 (7) 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 ICD Codes: M51.26 - Other intervertebral disc displacement, lumbar region SNOMED: 90768721 (8) Urinary retention ICD Codes: R33.9 - Retention of urine, unspecified SNOMED: 439633099 (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) ICD Codes: D50.0 - Iron deficiency anemia secondary to blood loss (chronic) SNOMED: 91899863, 055943602 (10) Atrial fibrillation ICD Codes: I48.91 - Atrial fibrillation SNOMED: 32182933 Qualifiers: Qualified Codes: I48.2 - Chronic atrial fibrillation (11) Pneumonia ICD Codes: J18.9 - Pneumonia, unspecified organism SNOMED: 100538344 Qualifiers: Qualified Codes: J18.9 - Pneumonia, unspecified organism (12) Acute respiratory failure ICD Codes: J96.00 - Acute respiratory failure, unspecified whether with hypoxia or hypercapnia SNOMED: 96344034 Qualifiers: Qualified Codes: J96.01 - Acute respiratory failure with hypoxia (13) Hypernatremia ICD Codes: E87.0 - Hyperosmolality and hypernatremia SNOMED: 02257788 (14) Diarrhea ICD Codes: R19.7 - Diarrhea, unspecified SNOMED: 11611514 (15) Sacral decubitus ulcer ICD Codes: L89.159 - Pressure ulcer of sacral region, unspecified stage SNOMED: 750529406 Assessment/Plan HC acquired pneumonia, possible aspiration, continue vanco and zosyn, mrsa pneumonia, vre colonized, enterococcal uti chf, parox afib , continue meds, replaceK hypernatremia give free water improving, anemia, order venofer , trend lab high risk, daughter aware, full code not weaning, may need trach--call to daughter, she gives consent. n Dr. Anali Green to schedule trach. Anemia and CAD warrents transfusion.done. Mild high gastric residuals, no nausea, d/w nurse diarrhea check c diff, neg, symptomatic care, wound care self extubated, observeon oxygen mask,now bipap, mod -severe distress at risk for reintubation, R thoracentesis 12/10 small amt fluid Subjective ROS Limited/Unobtainable: Yes Allergies: Coded Allergies: VINCENT INHIBITORS (Verified Allergy, Mild, 08/06/17) SHELLFISH (Verified Allergy, Unknown, 07/01/11) Subjective alert weak s/p self extubation Objective Last 24 Hour Vital Signs Date Time Temp Pulse Resp B/P (MAP) Pulse Ox O2 Delivery O2 Flow Rate FiO2 12/10/17 12:00 98.1 67 43 119/50 94 Bi-pap 70 98.1 12/10/17 12:00 67 119/50 12/10/17 11:40 70 45 97 Facial 70 12/10/17 08:52 64 42 97 Facial 70 12/10/17 08:40 67 132/50 12/10/17 08:00 69 12/10/17 08:00 98.3 67 42 132/50 98 Bi-pap 80 98.3 12/10/17 08:00 80 12/10/17 07:10 76 42 99 Facial 75 12/10/17 05:49 69 136/70 12/10/17 05:10 94 36 97 Facial 80 12/10/17 04:00 67 12/10/17 04:00 80 12/10/17 04:00 98.0 70 18 145/54 96 Bi-pap 80 98.0 12/10/17 03:21 87 32 98 Facial 80 12/10/17 01:10 98 36 95 Facial 80 12/10/17 00:10 78 136/67 12/10/17 00:00 73 12/10/17 00:00 80 12/10/17 00:00 98.5 76 18 135/65 95 Bi-pap 80 98.5 12/09/17 23:07 93 39 98 Full Face 80 12/09/17 21:10 81 43 97 Full Face 80 12/09/17 21:00 58 125/50 12/09/17 20:00 97.9 60 28 125/50 95 Bi-pap 80 97.9 12/09/17 20:00 80 12/09/17 20:00 69 12/09/17 19:02 72 45 95 Full Face 80 12/09/17 17:29 68 137/55 12/09/17 17:12 68 38 97 Full Face 80 12/09/17 16:00 97.7 71 28 137/55 95 Bi-pap 80 97.7 12/09/17 16:00 80 12/09/17 16:00 70 12/09/17 14:47 74 47 95 Full Face 80 12/09/17 13:39 65 109/45 12/09/17 13:13 65 43 93 Full Face 70 Intake and Output 12/09/17 12/10/17 19:00 07:00 Intake Total 1150 ml 620.000 ml Output Total 400 ml 1500 ml Balance 750 ml -880.000 ml Intake Free Water 200 ml IV Total 110 ml 360.000 ml Tube Feeding 780 ml 260 ml Other 60 ml Output Urine Total 400 ml 1500 ml # Bowel Movements 2 Laboratory Tests 12/09/17 19:20: Vancomycin Level Trough 14.2H 12/10/17 04:00: White Blood Count 16.9H, Red Blood Count 3.43L, Hemoglobin 10.3L, Hematocrit 31.7L, Mean Corpuscular Volume 92, Mean Corpuscular Hemoglobin 30.2, Mean Corpuscular Hemoglobin Concent 32.6, Red Cell Distribution Width 16.0H, Platelet Count 351, Mean Platelet Volume 8.5, Neutrophils (%) (Auto) , Lymphocytes (%) (Auto) , Monocytes (%) (Auto) , Eosinophils (%) (Auto) , Basophils (%) (Auto) , Differential Total Cells Counted 100, Neutrophils % ( Manual) 90H, Lymphocytes % (Manual) 3L, Monocytes % (Manual) 7, Eosinophils % ( Manual) 0, Basophils % (Manual) 0, Band Neutrophils 0, Platelet Estimate Adequate, Platelet Morphology Normal, Anisocytosis 1+, Prothrombin Time 13.4H, Prothromb Time International Ratio 1.3H, Activated Partial Thromboplast Time 40H , Sodium Level 135L, Potassium Level 4.1, Chloride Level 99, Carbon Dioxide Level 33H, Anion Gap 3L, Blood Urea Nitrogen 15, Creatinine 0.9, Estimat Glomerular Filtration Rate , Glucose Level 135H, Calcium Level 8.1L, Pro-B-Type Natriuretic Peptide 81383R Height (Feet): 6 Height (Inches): 0.00 Weight (Pounds): 143 General Appearance: moderate distress, thin EENT: normal ENT inspection Neck: normal alignment, supple Cardiovascular: regularly irregular Respiratory/Chest: respiratory distress, rhonchi - bilaterally Abdomen: soft, no organomegaly Edema: no edema noted Arm (L), no edema noted Arm (R), no edema noted Leg (L), no edema noted Leg (R), no edema noted Pedal (L), no edema noted Pedal (R), no edema noted Generalized 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
--- NOTE | 2017-12-10 14:26 | Diagnostic Imaging Report ---
Indications: Pleural effusion Technique: Ultrasound used to localize optimal puncture site. Sterile prepping and draping right chest. Local anesthesia with 1% lidocaine. Under real-time ultrasound guidance, puncture pleural space using thoracentesis needle. Stylet removed. Catheter placed to vacuum bottle suction. Total 15 milliliters of bloody fluid aspirated. Patient tolerated procedure well, without immediate complication. Findings: Followup sonography demonstrates complete resolution of pleural fluid. Impression: Successful ultrasound-guided thoracentesis, yielding 50 milliliters of fluid Note that on initial imaging the pleural contents appear very organized, with very little anechoic fluid present. On previous thoracenteses, only a limited amount of fluid has likely been aspirated, and imaging shows mostly solid or semisolid material within the right hemithorax. This probably indicates a combination of loculated pleural fluid and scar tissue not easily amenable to percutaneous thoracentesis
--- NOTE | 2017-12-10 15:17 | Diagnostic Imaging Report ---
Indication: Post thoracentesis Technique: One view of the chest Comparison: 12/09/2017 Findings: Right sided pleural thickening is again demonstrated. Note that recent sonography for thoracentesis demonstrated mostly organized material, very little free fluid. Bilateral extensive diffuse interstitial and airspace disease appears minimally improved. The heart is enlarged. There is a right chest bifocal pacemaker again demonstrated. No pneumothorax Impression: No pneumothorax, post thoracentesis Right-sided pleural thickening, demonstrated to be grossly organized/loculated material and fluid on sonography Bilateral diffuse extensive interstitial airspace disease, slightly improved over one day
[2017-12-10 16:00] VITALS: BP 124/51
[2017-12-10] MEDS ORDERED: Tubing IV Secondary IV ONE (16:26)
[2017-12-10] MEDS ORDERED: NS 275ml ONE ×2 (16:26→16:31)
[2017-12-10 20:00] VITALS: BP 126/79
[2017-12-11] VITALS (14 sets, daily range): BP systolic 89–143; BP diastolic 38–72
[2017-12-11 04:44] LABS: ANION GAP 5 mmol/L (5-15); BLOOD UREA NITROGEN 19 mg/dL (7-18); CALCIUM 8.3 MG/DL (8.5-10.1); CARBON DIOXIDE 34 MMOL/L (21-32); CHLORIDE 99 MMOL/L (98-107); CREATININE 1.1 MG/DL (0.55-1.30); POTASSIUM 3.7 MMOL/L (3.5-5.1); SODIUM 138 MMOL/L (136-145)
--- NOTE | 2017-12-11 04:45 | Progress Note ---
DATE: 12/10/2017 CARDIOLOGY PROGRESS NOTE SUBJECTIVE: The patient remains without respiratory distress, off ventilator for several days now. He continues with atrial fibrillation on youth nutritional monitor and demand ventricular pacing. He remains weak. He is tolerating G-tube feedings. He is status post thoracentesis earlier today on the right side. PHYSICAL EXAMINATION: VITAL SIGNS: Afebrile, blood pressure 119/50, pulse 70, and respiratory rate in the 40s. LUNGS: Coarse breath sounds. Scattered rhonchi. HEART: Irregularly irregular rhythm. Normal S1, S2. ABDOMEN: Soft, no edema. LABORATORY AND DIAGNOSTIC DATA: White count up to 16.9, hemoglobin 10.3. Potassium 4.1. BUN 15 and creatinine 0.9. Pro-natriuretic peptide has increased to 22,000. Chest x-ray following thoracentesis reveals loculated pleural effusion with thickening bilateral interstitial air space disease. No pneumothorax. IMPRESSION: 1. Acute on chronic diastolic and systolic congestive heart failure. 2. Loculated right pleural effusion status post thoracentesis. 3. Respiratory failure status post extubation. 4. Paroxysmal atrial fibrillation, permanent pacemaker. 5. Dysphagia with G-tube. PLAN: 1. Antibiotics. 2. Respiratory hygiene. 3. Diuresis efforts by IV route. 4. Monitor radiograph. 5. Oxygen and BiPAP support as needed. 6. Continue remainder of cardiovascular regimen without change. Chay Godinez M.D. DR: NELSY JOB#: [id number] CC:
[2017-12-11 04:48] LABS: HEMATOCRIT 31.3 % (42.0-52.0); HEMOGLOBIN 10.3 G/DL (14.2-18.0); MEAN CORPUSCULAR VOLUME 93 FL (80-99); PLATELET COUNT 343 K/UL (150-450); RED BLOOD COUNT 3.37 M/UL (4.70-6.10); WHITE BLOOD COUNT 14.5 K/UL (4.8-10.8)
[2017-12-11] MEDS: dilTIAZem HCl 60mg tab ORAL SCH ×3 (05:01→20:22)
[2017-12-11] MEDS: Piperacillin/Tazobactam 3.375 GM in D5W 110 ML IVPB SCH ×3 (05:19→22:00)
--- NOTE | 2017-12-11 08:10 | Pre-Procedure Note/Attestation ---
Pre-Procedure Note/Attestation Complete Prior to Procedure Planned Procedure: not applicable Procedure Narrative: Trach Indications for Procedure Pre-Operative Diagnosis: resp failure Attestation I attest that I discussed the nature of the procedure; its benefits; risks and complications; and alternatives (and the risks and benefits of such alternatives ), prior to the procedure, with the patient (or the patient's legal hospital insurance representative). I attest that, if there was a reasonable possibility of needing a blood transfusion, the patient (or the patient's legal hospital insurance representative) was given the [facility] standardized written summary, pursuant to the Sanjiv Rafa Blood Safety Act ([place] Health and Safety Code # 1645, as amended). I attest that I re-evaluated the patient just prior to the surgery and that there has been no change in the patient's H&P. Pt consent signed by family member. RANJIT SANCHEZ Dec 11, 2017 08:10
[2017-12-11] MEDS ORDERED: ceFAZolin sod 1 GM in D5W 55 ML IV ONE (08:15)
--- NOTE | 2017-12-11 08:16 | Brief Operative Note ---
Immediate Post Operative Note Operative Note Chief Complaint: Resp failure Pre-op Diagnosis: resp failure Procedure: Tracheostomy Post-op Diagnosis: same as pre-op Surgeon: Ranjit Sanchez Parish Worker: none Additional Surgeons: none Anesthesiologist: Dr. Sibley Anesthesia: general Specimen: none Complications: none Condition: stable Fluids: D5LR Drains: none Packing: Iodoform guaze Implant(s) used?: Yes - Patricia #8 with suff. RANJIT SANCHEZ Dec 11, 2017 08:16
[2017-12-11] MEDS: Aspirin Baby 81mg NG SCH (09:00)
[2017-12-11] MEDS ORDERED: Dexamethasone 4mg/ml vial IVP ONE (09:00)
[2017-12-11] MEDS: Metoprolol 25mg tab ORAL SCH ×2 (09:00→20:23)
[2017-12-11] MEDS: Magnesium Oxide 400mg tab ORAL SCH ×2 (09:00→13:00)
[2017-12-11] MEDS: Heparin 5000 units/ml inj SUBQ SCH ×2 (09:00→20:23)
[2017-12-11] MEDS: Bismuth Subsalicylate 30ml ORAL SCH ×3 (09:00→19:30)
--- NOTE | 2017-12-11 09:26 | Pulmonology Progress Note ---
Assessment/Plan Assessment/Plan 1. Pneumonia, healthcare acquired due to s aureus 2. Pleural effusions. 3. Chronic systolic congestive heart failure. 4. Hypotension, due to septic shock, improved. 5. Elevation of troponin, possible acute coronary syndrome. 6. History of CVA with dysarthria and dysphagia. 7. Respiratory failure acute on chronic. 8. Septic shock. 9. Indwelling Reyes 10. GT 11. sp self extubation continue on bipap till trach plans noted for trach Had moderate R effusion; s/p thoracentesis nebs and suction NPO abx wound care negative io check labs Subjective Interval Events: S/p low volume thoracenttesis yesterday Constitutional: Reports: no symptoms HEENT: Repors: no symptoms Respiratory: Reports: no symptoms Cardiovascular: Reports: no symptoms Gastrointestinal/Abdominal: Reports: no symptoms Allergies: Coded Allergies: VINCENT INHIBITORS (Verified Allergy, Mild, 08/06/17) SHELLFISH (Verified Allergy, Unknown, 07/01/11) Objective Last 24 Hour Vital Signs Date Time Temp Pulse Resp B/P (MAP) Pulse Ox O2 Delivery O2 Flow Rate FiO2 12/11/17 08:51 77 34 100 Full Face 60 12/11/17 08:00 97.9 69 22 126/52 99 Bi-pap 100 97.9 12/11/17 08:00 100 12/11/17 07:01 64 34 95 Full Face 60 12/11/17 05:01 62 31 97 Full Face 60 12/11/17 05:01 80 128/65 12/11/17 04:00 98.7 82 30 128/65 97 Bi-pap 70 98.7 12/11/17 04:00 70 12/11/17 04:00 61 12/11/17 02:47 71 34 98 Facial 60 12/11/17 00:32 66 35 100 Full Face 60 12/11/17 00:00 70 12/11/17 00:00 72 12/11/17 00:00 98.7 75 40 143/72 100 Bi-pap 70 98.7 12/10/17 23:58 73 134/63 12/10/17 22:35 72 43 98 Full Face 60 12/10/17 21:08 65 31 98 Facial 60 12/10/17 20:36 77 126/74 12/10/17 20:00 76 3/27/18 20:00 67 38 98 Facial 60 12/10/17 20:00 70 12/10/17 20:00 98.0 76 35 126/79 97 Bi-pap 70 98.0 12/10/17 17:11 76 124/51 12/10/17 17:06 76 42 98 Facial 70 12/10/17 16:02 70 12/10/17 16:00 98.0 69 43 124/51 95 Bi-pap 70 98.0 12/10/17 15:44 69 12/10/17 15:25 74 48 98 Facial 70 12/10/17 13:05 78 46 98 Facial 70 12/10/17 12:00 98.1 67 43 119/50 94 Bi-pap 70 98.1 12/10/17 12:00 70 12/10/17 12:00 67 119/50 12/10/17 11:44 63 12/10/17 11:40 70 45 97 Facial 70 Intake and Output 12/10/17 12/11/17 19:00 07:00 Intake Total 1172.5 ml 635.0 ml Output Total 1000 ml 400 ml Balance 172.5 ml 235.0 ml Intake Free Water 200 ml 200 ml IV Total 192.5 ml 110.0 ml Tube Feeding 780 ml 325 ml Output Urine Total 1000 ml 400 ml # Bowel Movements 1 4 General Appearance: no acute distress HEENT: normocephalic Respiratory/Chest: chest wall non-tender, decreased breath sounds Cardiovascular: normal peripheral pulses, normal rate Abdomen: normal bowel sounds, soft, non tender Laboratory Tests 12/11/17 03:55: White Blood Count 14.5H, Red Blood Count 3.37L, Hemoglobin 10.3L, Hematocrit 31.3L, Mean Corpuscular Volume 93, Mean Corpuscular Hemoglobin 30.4, Mean Corpuscular Hemoglobin Concent 32.7, Red Cell Distribution Width 16.0H, Platelet Count 343, Mean Platelet Volume 8.8, Neutrophils (%) (Auto) , Lymphocytes (%) (Auto) , Monocytes (%) (Auto) , Eosinophils (%) (Auto) , Basophils (%) (Auto) , Sodium Level 138, Potassium Level 3.7, Chloride Level 99 , Carbon Dioxide Level 34H, Anion Gap 5, Blood Urea Nitrogen 19H, Creatinine 1.1 , Estimat Glomerular Filtration Rate , Glucose Level 134H, Calcium Level 8.3L Current Medications Medications (Trade) Dose Ordered Sig/Scot Route PRN Reason Start Time Stop Time Status Last Admin Dose Admin Acetaminophen (Tylenol) 650 mg Q4H PRN ORAL Mild Pain/Temp > 100.5 12/09/17 15:30 01/04/18 15:29 Albuterol/ Ipratropium (Albuterol/ Ipratropium) 3 ml Q4H PRN HHN Shortness of Breath 12/09/17 13:00 12/12/17 20:59 Aspirin (ASA) 81 mg DAILY NG 12/10/17 09:00 12/26/17 08:59 Bismuth Subsalicylate (Pepto-Bismol) 30 ml TID ORAL 12/09/17 13:00 01/05/18 15:29 12/10/17 17:12 Collagenase (Santyl) 1 applic DAILY TOPIC 12/10/17 09:00 01/09/18 08:59 12/10/17 08:41 Diltiazem HCl (Cardizem) 60 mg EVERY 6 HOURS ORAL 12/09/17 12:00 12/25/17 17:59 12/10/17 23:58 Furosemide (Lasix) 40 mg DAILY IV 12/10/17 09:00 01/09/18 08:59 12/10/17 08:40 Heparin Sodium (Porcine) (Heparin 5000 units/ml) 5,000 units EVERY 12 HOURS SUBQ 12/09/17 21:00 12/25/17 20:59 12/10/17 20:37 Magnesium Oxide (Mag-Ox 400mg) 400 mg THREE TIMES A DAY ORAL 12/09/17 13:00 12/26/17 17:59 12/10/17 17:12 Metoprolol Tartrate (Lopressor) 25 mg Q12HR ORAL 12/09/17 21:00 12/25/17 20:59 12/10/17 20:36 Pantoprazole (Protonix) 40 mg DAILY IVP 12/10/17 09:00 12/26/17 10:14 12/10/17 08:40 Piperacillin Sod/ Tazobactam Sod 3.375 gm/Dextrose 110 ml @ 27.5 mls/hr EVERY 8 HOURS IVPB 12/09/17 14:00 12/13/17 13:59 12/11/17 05:19 Risperidone (RisperDAL) 0.25 mg Q6H PRN ORAL Agitation 12/09/17 12:30 12/31/17 12:29 Vancomycin HCl (Vanco rx to dose) 1 ea DAILY PRN MISC Per rx protocol 12/10/17 09:00 12/25/17 17:29 Vitamin A/Vitamin D (A & D Oint) 1 applic EVERY 12 HOURS TOPIC 12/09/17 21:00 12/28/17 20:59 12/10/17 20:37 Davy Smith MD Dec 11, 2017 09:26
[2017-12-11] MEDS: Pantoprazole Inj IVP SCH (10:29)
[2017-12-11] MEDS: Vitamin A&D Oint 2oz Tube TOPIC SCH ×2 (10:43→20:24)
[2017-12-11] MEDS ORDERED: Lidocaine 1% 10mg/ml/Epi 0.005mg/ml 30ml vial INJ ONE ×2 (12:27→19:45)
[2017-12-11] MEDS ORDERED: Sterile Water Irrig 1000ml IRRIG ONE (13:00)
[2017-12-11] MEDS ORDERED: NS Irrig 1000ml ONE (13:00)
[2017-12-11] MEDS ORDERED: Zemuron 50mg/5ml Inj IV ONE (13:00)
[2017-12-11] MEDS ORDERED: Midazolam 2mg/2ml Inj ONE (13:00)
[2017-12-11] MEDS ORDERED: Propofol 200mg/20ml IV ONE (13:00)
[2017-12-11] MEDS ORDERED: fentaNYL 100 mcg/2 mL IV ONE (13:00)
--- NOTE | 2017-12-11 14:07 | Immediate Post-Op Evaluation ---
Immediate Post-Op Evalulation Immediate Post-Op Evalulation Procedure: Tracheostomy Date of Evaluation: Dec 11, 2017 Time of Evaluation: 14:05 IV Fluids: 500 Blood Products: none Estimated Blood Loss: min Urinary Output: none Blood Pressure Systolic: 96 Blood Pressure Diastolic: 52 Pulse Rate: 96 Respiratory Rate: 16 O2 Sat by Pulse Oximetry: 99 Temperature (Fahrenheit): 97.6 Pain Score (1-10): 1 Nausea: No Vomiting: No Complications none Patient Status: no response, ventilated, none STEPAN STAFFORD M.D. Dec 11, 2017 14:07
[2017-12-11] MEDS ORDERED: Vancomycin 1250mg/D5W 250ml 250 ML IVPB SCH (16:00)
[2017-12-11] MEDS ORDERED: Surgicel 4in x 8in TOPIC ONE (16:35)
--- NOTE | 2017-12-11 17:01 | Diagnostic Imaging Report ---
Indication: Status post tracheostomy Technique: One view of the chest Comparison: 12/10/2017 Findings: Interim placement of tracheostomy, appearing to be in good position. No evidence of pneumothorax or pneumomediastinum Right-sided loculated pleural fluid versus thickening is again demonstrated, unchanged. Extensive bilateral interstitial and alveolar parenchymal disease is again demonstrated, unchanged. There is some volume loss of the right lung with slight rightward shift of the midline structures. The heart remains enlarged. The left pleural space remains clear. Right chest pacemaker remains. Impression: Satisfactory tracheostomy placement Other stable findings as described, over one day
--- NOTE | 2017-12-11 17:41 | General Progress Note ---
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 SNOMED: 535404327 (6) Pleural effusion ICD Codes: J90 - Pleural effusion, not elsewhere classified SNOMED: 85496588 (7) 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 ICD Codes: M51.26 - Other intervertebral disc displacement, lumbar region SNOMED: 53955613 (8) Urinary retention ICD Codes: R33.9 - Retention of urine, unspecified SNOMED: 871771073 (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) ICD Codes: D50.0 - Iron deficiency anemia secondary to blood loss (chronic) SNOMED: 99986302, 559249237 (10) Atrial fibrillation ICD Codes: I48.91 - Atrial fibrillation SNOMED: 55053303 Qualifiers: Qualified Codes: I48.2 - Chronic atrial fibrillation (11) Pneumonia ICD Codes: J18.9 - Pneumonia, unspecified organism SNOMED: 876420934 Qualifiers: Qualified Codes: J18.9 - Pneumonia, unspecified organism (12) Acute respiratory failure ICD Codes: J96.00 - Acute respiratory failure, unspecified whether with hypoxia or hypercapnia SNOMED: 81220677 Qualifiers: Qualified Codes: J96.01 - Acute respiratory failure with hypoxia (13) Hypernatremia ICD Codes: E87.0 - Hyperosmolality and hypernatremia SNOMED: 52561164 (14) Diarrhea ICD Codes: R19.7 - Diarrhea, unspecified SNOMED: 26102875 (15) Sacral decubitus ulcer ICD Codes: L89.159 - Pressure ulcer of sacral region, unspecified stage SNOMED: 255210977 Assessment/Plan HC acquired pneumonia, possible aspiration, continue vanco and zosyn, mrsa pneumonia, vre colonized, enterococcal uti chf, parox afib , continue meds, replaceK hypernatremia give free water improving, anemia, order venofer , trend lab high risk, daughter aware, full code not weaning, may need trach--call to daughter, she gives consent. n Dr. Anali Green to schedule trach--done 12/11, mild postop bleed Dr Green to reaassess. . Anemia and CAD warrents transfusion.done. Mild high gastric residuals, no nausea, d/w nurse diarrhea check c diff, neg, symptomatic care, wound care R thoracentesis 12/10 small amt fluid lab stable Subjective ROS Limited/Unobtainable: Yes Allergies: Coded Allergies: VINCENT INHIBITORS (Verified Allergy, Mild, 08/06/17) SHELLFISH (Verified Allergy, Unknown, 07/01/11) Subjective alert weak s/p self extubation Objective Last 24 Hour Vital Signs Date Time Temp Pulse Resp B/P (MAP) Pulse Ox O2 Delivery O2 Flow Rate FiO2 12/11/17 17:17 84 23 50 12/11/17 15:34 75 21 50 12/11/17 15:00 83 28 103/47 97 Bi-pap 70 12/11/17 14:08 87 11 Mechanical Ventilator 50 12/11/17 14:07 207.7 96 16 99 12/11/17 14:00 83 14 50 12/11/17 14:00 50 12/11/17 14:00 98.2 82 28 95/45 97 Bi-pap 70 98.2 12/11/17 14:00 83 12/11/17 12:00 80 12/11/17 12:00 98.6 77 28 136/67 97 Bi-pap 70 98.6 12/11/17 12:00 70 12/11/17 11:26 88 36 100 Full Face 60 12/11/17 08:51 77 34 100 Full Face 60 12/11/17 08:00 97.9 69 22 126/52 99 Bi-pap 100 97.9 12/11/17 08:00 71 12/11/17 08:00 100 12/11/17 07:01 64 34 95 Full Face 60 12/11/17 05:01 62 31 97 Full Face 60 12/11/17 05:01 80 128/65 12/11/17 04:00 98.7 82 30 128/65 97 Bi-pap 70 98.7 12/11/17 04:00 70 12/11/17 04:00 61 12/11/17 02:47 71 34 98 Facial 60 12/11/17 00:32 66 35 100 Full Face 60 12/11/17 00:00 70 12/11/17 00:00 72 12/11/17 00:00 98.7 75 40 143/72 100 Bi-pap 70 98.7 12/10/17 23:58 73 134/63 12/10/17 22:35 72 43 98 Full Face 60 12/10/17 21:08 65 31 98 Facial 60 12/10/17 20:36 77 126/74 12/10/17 20:00 76 12/10/17 20:00 67 38 98 Facial 60 12/10/17 20:00 70 12/10/17 20:00 98.0 76 35 126/79 97 Bi-pap 70 98.0 Intake and Output 12/10/17 12/11/17 19:00 07:00 Intake Total 1172.5 ml 635.0 ml Output Total 1000 ml 400 ml Balance 172.5 ml 235.0 ml Intake Free Water 200 ml 200 ml IV Total 192.5 ml 110.0 ml Tube Feeding 780 ml 325 ml Output Urine Total 1000 ml 400 ml # Bowel Movements 1 4 Laboratory Tests 12/11/17 03:55: White Blood Count 14.5H, Red Blood Count 3.37L, Hemoglobin 10.3L, Hematocrit 31.3L, Mean Corpuscular Volume 93, Mean Corpuscular Hemoglobin 30.4, Mean Corpuscular Hemoglobin Concent 32.7, Red Cell Distribution Width 16.0H, Platelet Count 343, Mean Platelet Volume 8.8, Neutrophils (%) (Auto) , Lymphocytes (%) (Auto) , Monocytes (%) (Auto) , Eosinophils (%) (Auto) , Basophils (%) (Auto) , Sodium Level 138, Potassium Level 3.7, Chloride Level 99 , Carbon Dioxide Level 34H, Anion Gap 5, Blood Urea Nitrogen 19H, Creatinine 1.1 , Estimat Glomerular Filtration Rate , Glucose Level 134H, Calcium Level 8.3L Height (Feet): 5 Height (Inches): 11.00 Weight (Pounds): 144 General Appearance: alert, thin EENT: normal ENT inspection Neck: other - new trach , mild bleed Cardiovascular: regular rhythm Respiratory/Chest: rhonchi - bilaterally Abdomen: non tender, soft Edema: no edema noted Arm (L), no edema noted Arm (R), no edema noted Leg (L), no edema noted Leg (R), no edema noted Pedal (L), no edema noted Pedal (R), no edema noted Generalized Neurologic: abalone diver II-XII grossly normal Objective alert on vent HODAN GAYTAN Dec 11, 2017 17:41
--- NOTE | 2017-12-11 17:54 | General Progress Note ---
Progress Note Progress Note ENT I was called about 45 minutes ago-trach started to bleed after a CXR about 4: 15. I came back to hospital about 5:30PM after pressure held by nursing staff. Surgery was completed about 1:45 PM today with at most 5 cc of bleeding. Nurse told me bleeding stopped about 15-20 minutes before. Does not appear to be a sentinel bleed, trach flap over vessels. Pt is was and is now stable. Probably when pt was sat up for CXR-a superficial blood vessel was rubbed and began to bleed, with pressure it stopped. Above discussed with Dr. Rubalcava who was in the ICU seeing pt when I arrived. RANJIT SANCHEZ Dec 11, 2017 17:54
[2017-12-11] MEDS ORDERED: Albuterol/Ipratropium 3ml neb HHN PRN (18:30)
[2017-12-12] VITALS (13 sets, daily range): BP systolic 97–126; BP diastolic 23–65
[2017-12-12] MEDS: dilTIAZem HCl 60mg tab ORAL SCH ×5 (00:41→17:22)
[2017-12-12 04:54] LABS: ANION GAP 6 mmol/L (5-15); BLOOD UREA NITROGEN 27 mg/dL (7-18); CALCIUM 8.7 MG/DL (8.5-10.1); CARBON DIOXIDE 32 MMOL/L (21-32); CHLORIDE 98 MMOL/L (98-107); CREATININE 1.3 MG/DL (0.55-1.30); POTASSIUM 3.8 MMOL/L (3.5-5.1); SODIUM 136 MMOL/L (136-145)
[2017-12-12] MEDS: Piperacillin/Tazobactam 3.375 GM in D5W 110 ML IVPB SCH ×3 (05:23→21:43)
[2017-12-12 05:41] LABS: HEMATOCRIT 27.1 % (42.0-52.0); HEMOGLOBIN 8.8 G/DL (14.2-18.0); MEAN CORPUSCULAR VOLUME 90 FL (80-99); PLATELET COUNT 337 K/UL (150-450); RED BLOOD COUNT 3.01 M/UL (4.70-6.10); RED CELL DISTRIBUTION WIDTH 15.1 % (11.6-14.8); WHITE BLOOD COUNT 12.3 K/UL (4.8-10.8)
--- NOTE | 2017-12-12 08:05 | 48 Hour Post Anesthesia Eval ---
Post Anesthesia Evaluation Procedure: Tracheostomy Date of Evaluation: Dec 12, 2017 Time of Evaluation: 07:45 Blood Pressure Systolic: 113 0: 52 Pulse Rate: 77 Respiratory Rate: 21 Temperature (Fahrenheit): 98.6 O2 Sat by Pulse Oximetry: 99 Airway: patent Nausea: No Vomiting: No Pain Intensity: 0 Hydration Status: adequate Cardiopulmonary Status: at baseline Mental Status/LOC: patient returned to baseline Post-Anesthesia Complications: 0 Follow-up care needed: N/A - further care as per primary team ROVERTO LACKEY M.D. Dec 12, 2017 08:05
--- NOTE | 2017-12-12 08:47 | Operative Note - Dictated ---
DATE OF OPERATION: 12/11/2017 SURGEON: Carlos Green M.D. VEHICLE PAINTER: None. ANESTHESIOLOGIST: Dr. Hart. ANESTHESIA: Oral endotracheal as well as 10 mL of 1% lidocaine with 1:100,000 epinephrine injected into the lower midline neck area. INDICATION FOR PROCEDURE: The patient who has been intubated and extubated, on BiPAP, not doing well. It was determined by two pulmonologists and primary care doctor that he would be better off being trached. PREOPERATIVE DIAGNOSIS: The patient who has been intubated and extubated, on BiPAP, not doing well. It was determined by two pulmonologists and primary care doctor that he would be better off being trached. POSTOPERATIVE DIAGNOSIS: The patient who has been intubated and extubated, on BiPAP, not doing well. It was determined by two pulmonologists and primary care doctor that he would be better off being trached. FINDINGS: Good landmarks. TECHNIQUE: The patient was prepped and draped in the usual manner. The oral endotracheal anesthesia injected with the aforementioned epinephrine and lidocaine mixture. Incision was made with a #15 blade two fingerbreadths above the sternal notch. This was taken down to the strap muscles and the dissection then became vertical. I was able to divide down to the thyroid. Army-Kirby's were placed on either side pulling the strap muscles aside. The thyroid was divided in the middle with electrocautery set at 14. I then was able to expose the face of the thyroid. Trach hook was placed in the cricoid. An incision was made between the second and third tracheal cartilage ring. I then made a small cut on either side of the incision down into the third ring. This allowed for an inferiorly based flap. This was tied to the lower epithelial incision with a 3-0 silk. In consult with the anesthesiologist, the endotracheal tube was pulled up to tip was just above the new trach stoma. I then placed a Shiley #8 nonfenestrated with cuff without difficulty. I then tied the trach flange with four 3-0 silk sutures. Iodoform gauze was placed into the subcutaneous part of the stoma. A piece of Telfa was placed between the flange and the skin to protect the skin. Also trach strap tied on the right side of the neck two fingerbreadths loose. Sponge and needle count correct. ESTIMATED BLOOD LOSS: 5 mL. COUNTS: None. DRAINS: None. Carlos Green M.D. DR: JULIO JOB#: [id number] CC: AN
[2017-12-12] MEDS ORDERED: Pantoprazole Inj IVP SCH (09:00)
[2017-12-12] MEDS ORDERED: Aspirin Baby 81mg NG SCH (09:00)
[2017-12-12] MEDS ORDERED: Magnesium Oxide 400mg tab ORAL SCH (09:00)
[2017-12-12] MEDS: Heparin 5000 units/ml inj SUBQ SCH ×3 (09:00→21:00)
[2017-12-12] MEDS: Metoprolol 25mg tab ORAL SCH ×2 (09:35→21:39)
[2017-12-12] MEDS: Bismuth Subsalicylate 30ml ORAL SCH ×3 (09:44→17:23)
[2017-12-12] MEDS: Vitamin A&D Oint 2oz Tube TOPIC SCH ×2 (09:45→21:44)
--- NOTE | 2017-12-12 11:23 | Pulmonology Progress Note ---
Assessment/Plan Assessment/Plan 1. Pneumonia, healthcare acquired due to s aureus 2. Pleural effusions. 3. Chronic systolic congestive heart failure. 4. Hypotension, due to septic shock, improved. 5. Elevation of troponin, possible acute coronary syndrome. 6. History of CVA with dysarthria and dysphagia. 7. Respiratory failure acute on chronic. 8. Septic shock. resolved 9. Indwelling Reyes 10. GT 11. sp trach S/p trach Had moderate R effusion; s/p thoracentesis nebs and suction NPO abx wound care negative io check labs Will order trach collar Subjective Interval Events: s/p trach. doing well Constitutional: Reports: no symptoms HEENT: Repors: no symptoms Respiratory: Reports: no symptoms Cardiovascular: Reports: no symptoms Gastrointestinal/Abdominal: Reports: no symptoms Allergies: Coded Allergies: VINCENT INHIBITORS (Verified Allergy, Mild, 08/06/17) SHELLFISH (Verified Allergy, Unknown, 07/01/11) Objective Last 24 Hour Vital Signs Date Time Temp Pulse Resp B/P (MAP) Pulse Ox O2 Delivery O2 Flow Rate FiO2 12/12/17 10:44 70 23 50 12/12/17 10:00 66 22 126/65 100 Mechanical Ventilator 50 12/12/17 09:36 98.6 12/12/17 09:35 65 110/48 12/12/17 09:00 65 21 110/48 100 Mechanical Ventilator 50 12/12/17 08:52 71 22 50 12/12/17 08:05 209.5 77 21 99 12/12/17 08:00 98.8 73 24 121/41 100 Mechanical Ventilator 50 98.8 12/12/17 08:00 97 12/12/17 08:00 50 12/12/17 07:00 71 22 112/46 100 Mechanical Ventilator 50 12/12/17 06:45 77 21 Mechanical Ventilator 50 12/12/17 06:44 77 21 50 12/12/17 06:15 76 113/52 12/12/17 06:00 92 29 106/58 99 Mechanical Ventilator 50 12/12/17 05:09 76 23 50 12/12/17 05:00 72 23 113/52 100 Mechanical Ventilator 50 12/12/17 04:00 98.6 73 23 112/46 100 Mechanical Ventilator 50 98.6 12/12/17 04:00 50 12/12/17 04:00 82 12/12/17 03:20 74 26 50 12/12/17 03:00 72 23 114/49 100 Mechanical Ventilator 50 12/12/17 02:00 74 23 97/23 99 Mechanical Ventilator 50 12/12/17 01:40 99.1 12/12/17 01:18 78 21 50 12/12/17 01:00 74 21 105/40 99 Mechanical Ventilator 50 12/12/17 00:41 80 95/43 12/12/17 00:41 99.3 12/12/17 00:00 99.3 77 21 125/53 98 Mechanical Ventilator 50 99.3 12/12/17 00:00 50 12/12/17 00:00 78 12/11/17 23:18 80 24 50 12/11/17 23:00 76 22 108/38 97 Mechanical Ventilator 50 12/11/17 22:00 75 23 89/44 97 Mechanical Ventilator 50 12/11/17 21:00 71 21 89/44 98 Mechanical Ventilator 50 12/11/17 20:37 70 22 50 12/11/17 20:23 86 95/43 12/11/17 20:22 86 95/43 12/11/17 20:00 50 12/11/17 20:00 98.9 75 23 96/39 98 Mechanical Ventilator 50 98.9 12/11/17 20:00 75 12/11/17 19:08 86 22 50 12/11/17 19:00 82 23 91/47 98 Mechanical Ventilator 50 12/11/17 18:00 78 28 95/43 97 Mechanical Ventilator 50 12/11/17 17:17 84 23 50 12/11/17 17:00 79 28 98/47 97 Mechanical Ventilator 50 12/11/17 16:00 83 28 100/45 97 Mechanical Ventilator 50 12/11/17 15:34 75 21 50 12/11/17 14:08 87 11 Mechanical Ventilator 50 12/11/17 14:07 207.7 96 16 99 12/11/17 14:00 83 14 50 12/11/17 14:00 50 12/11/17 14:00 98.2 82 28 95/45 97 Bi-pap 70 98.2 12/11/17 14:00 83 12/11/17 12:00 80 12/11/17 12:00 98.6 77 28 136/67 97 Bi-pap 70 98.6 12/11/17 12:00 70 12/11/17 11:26 88 36 100 Full Face 60 Intake and Output 12/11/17 12/12/17 19:00 07:00 Intake Total 30 ml 467.5 ml Output Total 260 ml 530 ml Balance -230 ml -62.5 ml IV Total 30 ml 467.5 ml Output Urine Total 260 ml 530 ml # Bowel Movements 2 General Appearance: no acute distress HEENT: normocephalic Respiratory/Chest: chest wall non-tender, decreased breath sounds Cardiovascular: normal peripheral pulses, normal rate Laboratory Tests 12/12/17 04:05: White Blood Count 12.3H, Red Blood Count 3.01L, Hemoglobin 8.8L, Hematocrit 27.1L, Mean Corpuscular Volume 90, Mean Corpuscular Hemoglobin 29.2, Mean Corpuscular Hemoglobin Concent 32.3, Red Cell Distribution Width 15.1H, Platelet Count 337, Mean Platelet Volume 8.5, Neutrophils (%) (Auto) , Lymphocytes (%) (Auto) , Monocytes (%) (Auto) , Eosinophils (%) (Auto) , Basophils (%) (Auto) , Differential Total Cells Counted 100, Neutrophils % ( Manual) 89H, Lymphocytes % (Manual) 7L, Monocytes % (Manual) 4, Eosinophils % ( Manual) 0, Basophils % (Manual) 0, Band Neutrophils 0, Platelet Estimate Adequate, Platelet Morphology Normal, Hypochromasia 1+, Anisocytosis 1+, Sodium Level 136, Potassium Level 3.8, Chloride Level 98, Carbon Dioxide Level 32, Anion Gap 6, Blood Urea Nitrogen 27H, Creatinine 1.3, Estimat Glomerular Filtration Rate , Glucose Level 121H, Calcium Level 8.7 Current Medications Medications (Trade) Dose Ordered Sig/Scot Route PRN Reason Start Time Stop Time Status Last Admin Dose Admin Acetaminophen (Tylenol) 650 mg Q4H PRN ORAL Mild Pain/Temp > 100.5 12/11/17 18:30 01/04/18 18:29 12/12/17 09:36 Albuterol/ Ipratropium (Albuterol/ Ipratropium) 3 ml Q4H PRN HHN Shortness of Breath 12/11/17 18:30 12/12/17 18:29 Aspirin (ASA) 81 mg DAILY NG 12/12/17 09:00 12/26/17 08:59 12/12/17 09:35 Bismuth Subsalicylate (Pepto-Bismol) 30 ml TID ORAL 12/11/17 19:30 01/10/18 19:29 12/12/17 09:44 Collagenase (Santyl) 1 applic DAILY TOPIC 12/12/17 09:00 01/09/18 08:59 12/12/17 09:45 Diltiazem HCl (Cardizem) 60 mg EVERY 6 HOURS ORAL 12/11/17 19:30 01/10/18 19:29 12/12/17 06:15 Furosemide (Lasix) 40 mg DAILY IV 12/12/17 09:00 01/09/18 08:59 12/12/17 09:35 Heparin Sodium (Porcine) (Heparin 5000 units/ml) 5,000 units EVERY 12 HOURS SUBQ 12/11/17 21:00 12/25/17 20:59 Magnesium Oxide (Mag-Ox 400mg) 400 mg THREE TIMES A DAY ORAL 12/12/17 09:00 12/26/17 17:59 12/12/17 09:36 Metoprolol Tartrate (Lopressor) 25 mg Q12HR ORAL 12/11/17 21:00 12/25/17 20:59 12/12/17 09:35 Pantoprazole (Protonix) 40 mg DAILY IVP 12/12/17 09:00 12/26/17 10:14 12/12/17 09:35 Piperacillin Sod/ Tazobactam Sod 3.375 gm/Dextrose 110 ml @ 27.5 mls/hr EVERY 8 HOURS IVPB 12/11/17 22:00 12/17/17 21:59 12/12/17 05:23 Potassium Chloride 20 meq/ Dextrose 1,010 ml @ 30 mls/hr Q24H IV 12/11/17 19:00 01/10/18 18:59 12/11/17 18:59 Risperidone (RisperDAL) 0.25 mg Q6H PRN ORAL Agitation 12/11/17 18:30 12/31/17 12:29 Vancomycin HCl (Vanco rx to dose) 1 ea DAILYPRN PRN MISC Per rx protocol 12/11/17 18:30 01/10/18 18:29 Vancomycin HCl/ Dextrose 250 ml @ 166.667 mls/hr Q24H IVPB 12/12/17 16:00 12/16/17 15:59 Vitamin A/Vitamin D (A & D Oint) 1 applic EVERY 12 HOURS TOPIC 12/11/17 21:00 12/28/17 20:59 12/12/17 09:45 Davy Smith MD Dec 12, 2017 11:23
[2017-12-12] MEDS ORDERED: Albuterol/Ipratropium 3ml neb HHN PRN (14:00)
[2017-12-12] MEDS ORDERED: Vancomycin 1250mg/D5W 250ml 250 ML IVPB SCH ×2 (16:00)
--- NOTE | 2017-12-12 16:07 | Emergency Room Report ---
Physical Exam Vital Signs Date Time Temp Pulse Resp B/P (MAP) Pulse Ox O2 Delivery O2 Flow Rate FiO2 12/08/17 07:00 93 30 158/58 98 Bi-pap 60 12/08/17 08:00 98.5 98.5 Medical Decision Making Diagnostic Impression: Primary Impression: Acute respiratory failure Qualified Codes: J96.01 - Acute respiratory failure with hypoxia Additional Impressions: Atrial fibrillation Qualified Codes: I48.2 - Chronic atrial fibrillation CHF (congestive heart failure), NYHA class IV Qualified Codes: I50.23 - Acute on chronic systolic (congestive) heart failure NSTEMI (non-ST elevated myocardial infarction) Pneumonia Qualified Codes: J18.9 - Pneumonia, unspecified organism ER Course I was called to the ICU to evaluate this patient with bleeding from the tracheostomy. Trach was placed today at [facility] [place] Shortly after being brought to the ICU nursing staff noticed bleeding from the trach. When I evaluated the patient the trach appears to be in place. I pulled the trach up and I do note bleeding at the 6 o'clock position of the trach site. I applied point pressure at that position for several minutes. The bleeding does appear to be all controlled now. I placed pressure gauze at that position and asked nursing staff to hold pressure in that same position I contacted Dr. Green who performed a tracheostomy procedure. He states he is on his way to evaluate the patient Last Vital Signs Date Time Temp Pulse Resp B/P (MAP) Pulse Ox O2 Delivery O2 Flow Rate FiO2 12/12/17 14:49 68 22 12/12/17 13:30 106/64 12/12/17 12:41 50 12/12/17 10:35 98.6 12/12/17 10:00 100 Mechanical Ventilator Status: improved Disposition: ADMITTED INPATIENT Condition: Critical Referrals: HODAN GAYTAN (PCP) Xavi Hedrick MD Dec 12, 2017 16:07
--- NOTE | 2017-12-12 16:54 | General Progress Note ---
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 SNOMED: 755036773 (6) Pleural effusion ICD Codes: J90 - Pleural effusion, not elsewhere classified SNOMED: 98509875 (7) 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 ICD Codes: M51.26 - Other intervertebral disc displacement, lumbar region SNOMED: 98682578 (8) Urinary retention ICD Codes: R33.9 - Retention of urine, unspecified SNOMED: 698794618 (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) ICD Codes: D50.0 - Iron deficiency anemia secondary to blood loss (chronic) SNOMED: 84642551, 669999608 (10) Atrial fibrillation ICD Codes: I48.91 - Atrial fibrillation SNOMED: 18123846 Qualifiers: Qualified Codes: I48.2 - Chronic atrial fibrillation (11) Pneumonia ICD Codes: J18.9 - Pneumonia, unspecified organism SNOMED: 225659437 Qualifiers: Qualified Codes: J18.9 - Pneumonia, unspecified organism (12) Acute respiratory failure ICD Codes: J96.00 - Acute respiratory failure, unspecified whether with hypoxia or hypercapnia SNOMED: 13947441 Qualifiers: Qualified Codes: J96.01 - Acute respiratory failure with hypoxia (13) Hypernatremia ICD Codes: E87.0 - Hyperosmolality and hypernatremia SNOMED: 17296825 (14) Diarrhea ICD Codes: R19.7 - Diarrhea, unspecified SNOMED: 92659937 (15) Sacral decubitus ulcer ICD Codes: L89.159 - Pressure ulcer of sacral region, unspecified stage SNOMED: 890614788 Assessment/Plan HC acquired pneumonia, possible aspiration, continue vanco and zosyn, mrsa pneumonia, vre colonized, enterococcal uti chf, parox afib , continue meds, replaceK hypernatremia give free water improving, anemia, order venofer , trend lab high risk, daughter aware, full code not weaning, may need trach--call to daughter, she gives consent. n Dr. Anali Green to schedule trach--done 12/11, mild postop bleed Dr Green to reaassess. . bleeding stopped Anemia and CAD warrents transfusion.done. Mild high gastric residuals, jimproved no nausea, d/w nurse diarrhea check c diff, neg, symptomatic care, wound care R thoracentesis 12/10 small amt fluid lab stable feeding restarting 12/12 on Tpiece so far no distress Subjective Constitutional: Reports: weakness HEENT: Reports: no symptoms Cardiovascular: Reports: no symptoms Respiratory: Reports: cough, SOB with excertion Gastrointestinal/Abdominal: Reports: no symptoms Genitourinary: Reports: incontinence Neurologic/Psychiatric: Reports: weakness Endocrine: Reports: no symptoms Hematologic/Lymphatic: Reports: anemia Allergies: Coded Allergies: VINCENT INHIBITORS (Verified Allergy, Mild, 08/06/17) SHELLFISH (Verified Allergy, Unknown, 07/01/11) Subjective alert weak s/p trach Objective Last 24 Hour Vital Signs Date Time Temp Pulse Resp B/P (MAP) Pulse Ox O2 Delivery O2 Flow Rate FiO2 12/12/17 16:50 72 20 12/12/17 16:00 69 12/12/17 16:00 97.7 89 22 120/62 95 T-piece 50 97.7 12/12/17 16:00 12.0 50 12/12/17 14:49 68 22 12/12/17 14:14 64 20 12/12/17 13:30 70 106/64 12/12/17 12:41 67 21 50 12/12/17 12:00 50 12/12/17 12:00 88 12/12/17 10:44 70 23 50 12/12/17 10:35 98.6 12/12/17 10:00 66 22 126/65 100 Mechanical Ventilator 50 12/12/17 09:36 98.6 12/12/17 09:35 65 110/48 12/12/17 09:00 65 21 110/48 100 Mechanical Ventilator 50 12/12/17 08:52 71 22 50 12/12/17 08:05 209.5 77 21 99 12/12/17 08:00 98.8 73 24 121/41 100 Mechanical Ventilator 50 98.8 12/12/17 08:00 97 12/12/17 08:00 50 12/12/17 07:00 71 22 112/46 100 Mechanical Ventilator 50 12/12/17 06:45 77 21 Mechanical Ventilator 50 12/12/17 06:44 77 21 50 12/12/17 06:15 76 113/52 12/12/17 06:00 92 29 106/58 99 Mechanical Ventilator 50 12/12/17 05:09 76 23 50 12/12/17 05:00 72 23 113/52 100 Mechanical Ventilator 50 12/12/17 04:00 98.6 73 23 112/46 100 Mechanical Ventilator 50 98.6 12/12/17 04:00 50 12/12/17 04:00 82 12/12/17 03:20 74 26 50 12/12/17 03:00 72 23 114/49 100 Mechanical Ventilator 50 12/12/17 02:00 74 23 97/23 99 Mechanical Ventilator 50 12/12/17 01:18 78 21 50 12/12/17 01:00 74 21 105/40 99 Mechanical Ventilator 50 12/12/17 00:41 80 95/43 12/12/17 00:41 99.3 12/12/17 00:00 99.3 77 21 125/53 98 Mechanical Ventilator 50 99.3 12/12/17 00:00 50 12/12/17 00:00 78 12/11/17 23:18 80 24 50 12/11/17 23:00 76 22 108/38 97 Mechanical Ventilator 50 12/11/17 22:00 75 23 89/44 97 Mechanical Ventilator 50 12/11/17 21:00 71 21 89/44 98 Mechanical Ventilator 50 12/11/17 20:37 70 22 50 12/11/17 20:23 86 95/43 12/11/17 20:22 86 95/43 12/11/17 20:00 50 12/11/17 20:00 98.9 75 23 96/39 98 Mechanical Ventilator 50 98.9 12/11/17 20:00 75 12/11/17 19:08 86 22 50 12/11/17 19:00 82 23 91/47 98 Mechanical Ventilator 50 12/11/17 18:00 78 28 95/43 97 Mechanical Ventilator 50 12/11/17 17:17 84 23 50 12/11/17 17:00 79 28 98/47 97 Mechanical Ventilator 50 Intake and Output 12/11/17 12/12/17 19:00 07:00 Intake Total 30 ml 467.5 ml Output Total 260 ml 530 ml Balance -230 ml -62.5 ml IV Total 30 ml 467.5 ml Output Urine Total 260 ml 530 ml # Bowel Movements 2 Laboratory Tests 12/12/17 04:05: White Blood Count 12.3H, Red Blood Count 3.01L, Hemoglobin 8.8L, Hematocrit 27.1L, Mean Corpuscular Volume 90, Mean Corpuscular Hemoglobin 29.2, Mean Corpuscular Hemoglobin Concent 32.3, Red Cell Distribution Width 15.1H, Platelet Count 337, Mean Platelet Volume 8.5, Neutrophils (%) (Auto) , Lymphocytes (%) (Auto) , Monocytes (%) (Auto) , Eosinophils (%) (Auto) , Basophils (%) (Auto) , Differential Total Cells Counted 100, Neutrophils % ( Manual) 89H, Lymphocytes % (Manual) 7L, Monocytes % (Manual) 4, Eosinophils % ( Manual) 0, Basophils % (Manual) 0, Band Neutrophils 0, Platelet Estimate Adequate, Platelet Morphology Normal, Hypochromasia 1+, Anisocytosis 1+, Sodium Level 136, Potassium Level 3.8, Chloride Level 98, Carbon Dioxide Level 32, Anion Gap 6, Blood Urea Nitrogen 27H, Creatinine 1.3, Estimat Glomerular Filtration Rate , Glucose Level 121H, Calcium Level 8.7 Height (Feet): 5 Height (Inches): 11.00 Weight (Pounds): 136 General Appearance: alert EENT: normal ENT inspection Neck: other - trach Cardiovascular: regular rhythm Respiratory/Chest: rhonchi - bilaterally Abdomen: non tender, soft, no organomegaly Edema: no edema noted Arm (L), no edema noted Arm (R), no edema noted Leg (L), no edema noted Leg (R), no edema noted Pedal (L), no edema noted Pedal (R), no edema noted Generalized Neurologic: matrix bath operator II-XII grossly normal Objective alert on vent HODAN GAYTAN Dec 12, 2017 16:54
[2017-12-12] MEDS: D5W w/KCl 20mEq 1,000 ML IV SCH (17:22)
[2017-12-12] MEDS: Magnesium Oxide 400mg tab ORAL SCH (17:23)
[2017-12-13] VITALS: BP 123/67
[2017-12-13 04:00] VITALS: BP 123/68
[2017-12-13] MEDS: dilTIAZem HCl 60mg tab ORAL SCH ×5 (05:00→23:52)
[2017-12-13] MEDS: Piperacillin/Tazobactam 3.375 GM in D5W 110 ML IVPB SCH (05:02)
[2017-12-13 08:30] VITALS: BP 126/61
[2017-12-13] MEDS ORDERED: Pantoprazole Inj IVP SCH (09:00)
[2017-12-13] MEDS: Aspirin Baby 81mg NG SCH (09:34)
[2017-12-13] MEDS: Metoprolol 25mg tab ORAL SCH ×2 (09:34→21:37)
[2017-12-13] MEDS: Magnesium Oxide 400mg tab ORAL SCH (09:34)
[2017-12-13] MEDS: Heparin 5000 units/ml inj SUBQ SCH ×2 (09:37→21:39)
[2017-12-13] MEDS: Vitamin A&D Oint 2oz Tube TOPIC SCH ×2 (09:38→21:40)
[2017-12-13] MEDS: Bismuth Subsalicylate 30ml ORAL SCH ×3 (09:38→17:44)
[2017-12-13] MEDS ORDERED: NS 275ml ONE (10:11)
[2017-12-13] MEDS ORDERED: Tubing IV Secondary IV ONE (10:11)
[2017-12-13] MEDS ORDERED: D5NS 1000ml IV ONE (10:11)
--- NOTE | 2017-12-13 11:07 | Pulmonology Progress Note ---
Assessment/Plan Assessment/Plan 1. Pneumonia, healthcare acquired due to s aureus 2. Pleural effusions. 3. Chronic systolic congestive heart failure. 4. Hypotension, due to septic shock, improved. 5. Elevation of troponin, possible acute coronary syndrome. 6. History of CVA with dysarthria and dysphagia. 7. Respiratory failure acute on chronic. 8. Septic shock. resolved 9. Indwelling Reyes 10. GT 11. sp trach S/p trach Had moderate R effusion; s/p thoracentesis nebs and suction NPO abx wound care continue flow by. Subjective Interval Events: Transferred out to [facility]. Is on flow by. Awake and responsive. Constitutional: Reports: no symptoms HEENT: Repors: no symptoms Respiratory: Reports: no symptoms Cardiovascular: Reports: no symptoms Gastrointestinal/Abdominal: Reports: no symptoms Allergies: Coded Allergies: VINCENT INHIBITORS (Verified Allergy, Mild, 08/06/17) SHELLFISH (Verified Allergy, Unknown, 07/01/11) Objective Last 24 Hour Vital Signs Date Time Temp Pulse Resp B/P (MAP) Pulse Ox O2 Delivery O2 Flow Rate FiO2 12/13/17 09:34 71 126/61 12/13/17 08:30 96.8 71 18 126/61 100 T-piece 50 96.8 12/13/17 08:00 T-piece 12.0 50 12/13/17 08:00 96 T-piece 12.0 50 12/13/17 05:00 78 123/68 12/13/17 04:00 12.0 70 12/13/17 04:00 97.5 78 19 123/68 98 T-piece 50 97.5 12/13/17 03:50 68 12/13/17 01:39 T-piece 12.0 50 12/13/17 01:39 97 T-piece 12.0 50 12/13/17 00:00 97.6 60 19 123/67 97 T-piece 50 97.6 12/13/17 00:00 12.0 70 12/13/17 00:00 60 123/67 12/12/17 23:59 67 12/12/17 21:39 73 111/56 12/12/17 20:39 73 12/12/17 20:05 T-piece 12.0 70 12/12/17 20:05 95 T-piece 12.0 70 12/12/17 20:00 97.7 73 20 111/56 95 T-piece 50 97.7 12/12/17 20:00 12.0 50 12/12/17 17:22 72 120/62 12/12/17 16:50 72 20 12/12/17 16:00 69 12/12/17 16:00 97.7 89 22 120/62 95 T-piece 50 97.7 12/12/17 16:00 12.0 50 12/12/17 14:49 68 22 12/12/17 14:14 T-piece 12.0 50 12/12/17 14:14 99 T-piece 12.0 50 12/12/17 14:14 64 20 12/12/17 13:30 70 106/64 12/12/17 12:41 67 21 50 12/12/17 12:00 50 12/12/17 12:00 88 Intake and Output 12/12/17 12/13/17 19:00 07:00 Intake Total 670.5 ml 967.5 ml Output Total 440 ml 550 ml Balance 230.5 ml 417.5 ml IV Total 570.5 ml 467.5 ml Tube Feeding 40 ml 400 ml Other 60 ml 100 ml Output Urine Total 440 ml 550 ml # Bowel Movements 2 2 General Appearance: no acute distress HEENT: normocephalic Respiratory/Chest: chest wall non-tender, decreased breath sounds Cardiovascular: normal peripheral pulses, normal rate Abdomen: normal bowel sounds Microbiology Date/Time Source Procedure Growth Status 12/11/17 19:00 Sputum Gram Stain - Final Resulted 12/11/17 19:00 Sputum Sputum Culture - Preliminary NO GROWTH AFTER 24 HOURS Resulted Current Medications Medications (Trade) Dose Ordered Sig/Scot Route PRN Reason Start Time Stop Time Status Last Admin Dose Admin Acetaminophen (Tylenol) 650 mg Q4H PRN ORAL Mild Pain/Temp > 100.5 12/12/17 14:00 01/04/18 13:59 Aspirin (ASA) 81 mg DAILY NG 12/13/17 09:00 12/26/17 08:59 12/13/17 09:34 Bismuth Subsalicylate (Pepto-Bismol) 30 ml TID ORAL 12/12/17 13:30 01/11/18 13:29 12/13/17 09:38 Collagenase (Santyl) 1 applic DAILY TOPIC 12/13/17 09:00 01/09/18 08:59 12/13/17 09:38 Dextrose/ Electrolytes 1,000 ml @ 30 mls/hr Q24H IV 12/12/17 18:00 01/11/18 17:59 12/12/17 17:22 Diltiazem HCl (Cardizem) 60 mg EVERY 6 HOURS ORAL 12/12/17 13:30 01/11/18 13:29 Furosemide (Lasix) 40 mg DAILY IV 12/13/17 09:00 01/09/18 08:59 12/13/17 09:35 Heparin Sodium (Porcine) (Heparin 5000 units/ml) 5,000 units EVERY 12 HOURS SUBQ 12/12/17 21:00 12/25/17 20:59 12/13/17 09:37 Magnesium Oxide (Mag-Ox 400mg) 400 mg THREE TIMES A DAY ORAL 12/12/17 18:00 12/26/17 17:59 12/13/17 09:34 Metoprolol Tartrate (Lopressor) 25 mg Q12HR ORAL 12/12/17 21:00 12/25/17 20:59 12/13/17 09:34 Pantoprazole (Protonix) 40 mg DAILY IVP 12/13/17 09:00 12/26/17 10:14 12/13/17 09:35 Piperacillin Sod/ Tazobactam Sod 3.375 gm/Dextrose 110 ml @ 27.5 mls/hr EVERY 8 HOURS IVPB 12/12/17 14:00 12/17/17 21:59 12/13/17 05:02 Risperidone (RisperDAL) 0.25 mg Q6H PRN ORAL Agitation 12/12/17 14:00 12/31/17 13:59 Vancomycin HCl (Vanco rx to dose) 1 ea DAILYPRN PRN MISC Per rx protocol 12/12/17 14:00 01/10/18 13:59 Vancomycin HCl/ Dextrose 250 ml @ 166.667 mls/hr Q24H IVPB 12/12/17 16:00 12/16/17 15:59 12/12/17 15:50 Vitamin A/Vitamin D (A & D Oint) 1 applic EVERY 12 HOURS TOPIC 12/12/17 21:00 12/28/17 20:59 12/13/17 09:38 Davy Smith MD Dec 13, 2017 11:07
[2017-12-13 12:30] VITALS: BP 132/76
--- NOTE | 2017-12-13 13:26 | General Progress Note ---
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 SNOMED: 587771389 (6) Pleural effusion ICD Codes: J90 - Pleural effusion, not elsewhere classified SNOMED: 48242728 (7) 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 ICD Codes: M51.26 - Other intervertebral disc displacement, lumbar region SNOMED: 47458086 (8) Urinary retention ICD Codes: R33.9 - Retention of urine, unspecified SNOMED: 090205116 (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) ICD Codes: D50.0 - Iron deficiency anemia secondary to blood loss (chronic) SNOMED: 83033846, 648934229 (10) Atrial fibrillation ICD Codes: I48.91 - Atrial fibrillation SNOMED: 82415054 Qualifiers: Qualified Codes: I48.2 - Chronic atrial fibrillation (11) Pneumonia ICD Codes: J18.9 - Pneumonia, unspecified organism SNOMED: 024263171 Qualifiers: Qualified Codes: J18.9 - Pneumonia, unspecified organism (12) Acute respiratory failure ICD Codes: J96.00 - Acute respiratory failure, unspecified whether with hypoxia or hypercapnia SNOMED: 04300524 Qualifiers: Qualified Codes: J96.01 - Acute respiratory failure with hypoxia (13) Hypernatremia ICD Codes: E87.0 - Hyperosmolality and hypernatremia SNOMED: 98674451 (14) Diarrhea ICD Codes: R19.7 - Diarrhea, unspecified SNOMED: 61237269 (15) Sacral decubitus ulcer ICD Codes: L89.159 - Pressure ulcer of sacral region, unspecified stage SNOMED: 025343839 Assessment/Plan HC acquired pneumonia, possible aspiration, continue vanco and zosyn, mrsa pneumonia, vre colonized, enterococcal uti chf, parox afib , continue meds, replaceK hypernatremia give free water improving, anemia, order venofer , trend lab high risk, daughter aware, full code not weaning, may need trach--call to daughter, she gives consent. n Dr. Anali Green to schedule trach--done 12/11, mild postop bleed Dr Green to reaassess. . bleeding stopped Anemia and CAD warrents transfusion.done. Mild high gastric residuals, jimproved no nausea, d/w nurse diarrhea check c diff, neg, symptomatic care, wound care R thoracentesis 12/10 small amt fluid lab stable feeding restarting 12/12+12/13 on Tpiece so far no distress Subjective Constitutional: Reports: weakness HEENT: Reports: no symptoms Cardiovascular: Reports: no symptoms Respiratory: Reports: cough, shortness of breath Gastrointestinal/Abdominal: Reports: diarrhea Genitourinary: Reports: no symptoms Neurologic/Psychiatric: Reports: no symptoms Endocrine: Reports: no symptoms Hematologic/Lymphatic: Reports: anemia Allergies: Coded Allergies: VINCENT INHIBITORS (Verified Allergy, Mild, 08/06/17) SHELLFISH (Verified Allergy, Unknown, 07/01/11) Subjective alert weak s/p trach Objective Last 24 Hour Vital Signs Date Time Temp Pulse Resp B/P (MAP) Pulse Ox O2 Delivery O2 Flow Rate FiO2 12/13/17 12:30 97.7 75 24 132/76 98 T-piece 50 97.7 12/13/17 09:34 71 126/61 12/13/17 08:30 96.8 71 18 126/61 100 T-piece 50 96.8 12/13/17 08:00 T-piece 12.0 50 12/13/17 08:00 96 T-piece 12.0 50 12/13/17 08:00 80 12/13/17 05:00 78 123/68 12/13/17 04:00 12.0 70 12/13/17 04:00 97.5 78 19 123/68 98 T-piece 50 97.5 12/13/17 03:50 68 12/13/17 01:39 T-piece 12.0 50 12/13/17 01:39 97 T-piece 12.0 50 3/30/18 00:00 97.6 60 19 123/67 97 T-piece 50 97.6 12/13/17 00:00 12.0 70 12/13/17 00:00 60 123/67 12/12/17 23:59 67 12/12/17 21:39 73 111/56 12/12/17 20:39 73 12/12/17 20:05 T-piece 12.0 70 12/12/17 20:05 95 T-piece 12.0 70 12/12/17 20:00 97.7 73 20 111/56 95 T-piece 50 97.7 12/12/17 20:00 12.0 50 12/12/17 17:22 72 120/62 12/12/17 16:50 72 20 12/12/17 16:00 69 12/12/17 16:00 97.7 89 22 120/62 95 T-piece 50 97.7 12/12/17 16:00 12.0 50 12/12/17 14:49 68 22 12/12/17 14:14 T-piece 12.0 50 12/12/17 14:14 99 T-piece 12.0 50 12/12/17 14:14 64 20 12/12/17 13:30 70 106/64 Intake and Output 12/12/17 12/13/17 19:00 07:00 Intake Total 670.5 ml 967.5 ml Output Total 440 ml 550 ml Balance 230.5 ml 417.5 ml IV Total 570.5 ml 467.5 ml Tube Feeding 40 ml 400 ml Other 60 ml 100 ml Output Urine Total 440 ml 550 ml # Bowel Movements 2 2 Height (Feet): 5 Height (Inches): 11.00 Weight (Pounds): 137 General Appearance: alert, mild distress EENT: normal ENT inspection Neck: other - trach Cardiovascular: regular rhythm Respiratory/Chest: rhonchi - bilaterally Abdomen: non tender Edema: no edema noted Arm (L), no edema noted Arm (R), no edema noted Leg (L), no edema noted Leg (R), no edema noted Pedal (L), no edema noted Pedal (R), no edema noted Generalized Neurologic: starter cup powder mixer II-XII grossly normal Objective alert on vent HODAN GAYTAN Dec 13, 2017 13:26
[2017-12-13] MEDS ORDERED: Loperamide 2mg cap ORAL PRN (13:30)
[2017-12-13 16:15] VITALS: BP 148/79
[2017-12-13] MEDS: D5W w/KCl 20mEq 1,000 ML IV SCH (17:46)
[2017-12-13 20:00] VITALS: BP 147/64
[2017-12-14] VITALS: BP 161/64
[2017-12-14 04:00] VITALS: BP 146/73
--- NOTE | 2017-12-14 04:30 | Progress Note ---
DATE: 12/13/2017 CARDIOLOGY PROGRESS NOTE SUBJECTIVE: The patient had a tracheostomy performed and is now on a T-piece with no distress. No bleeding from the site is noted. Monitored rhythm, atrial fibrillation ventricular pacing. SUBJECTIVE: VITAL SIGNS: Blood pressure 110/60, pulse 70, and respirations 18. RESPIRATORY: Coarse breath sounds . CARDIAC: Irregularly irregular rhythm. Normal S1, S2. ABDOMEN: Soft. No edema. LABORATORY DATA: Laboratories reviewed. IMPRESSION: 1. Respiratory failure. 2. Healthcare-acquired pneumonia, status post tracheostomy. 3. Paroxysmal atrial fibrillation. 4. Dehydration, hypernatremia, resolved. 5. Hypertensive heart disease, controlled. 6. Acute on chronic diastolic and systolic congestive heart failure, compensated. PLAN: 1. Bronchodilators. 2. Respiratory hygiene. 3. Antimicrobials. 4. No plans for anticoagulation due to bleeding risk. 5. Continue current cardiovascular regimen. 6. Titrate diuretic dosing. 7. Transfer plans to subacute care to follow. Chay Godinez M.D. DR: CELIA JOB#: [id number] CC:
--- NOTE | 2017-12-14 04:30 | Progress Note ---
DATE: 12/11/2017 CARDIOLOGY PROGRESS NOTE Late entry for 12/11/2017. SUBJECTIVE: The patient was seen and evaluated and case discussed with Dr. Rubalcava. The patient is on BiPAP support. Thoracentesis for right pleural effusion was completed. He continues to require [id number] respiratory hygiene. Monitored rhythm is atrial fibrillation with ventricular pacing. OBJECTIVE: VITAL SIGNS: Blood pressure 126/52, pulse 69, and respirations 22. Afebrile. LUNGS: Coarse breath sounds. Scattered rhonchi. HEART: Irregularly irregular rhythm. Normal S1, S2. ABDOMEN: Soft. G-tube intact. EXTREMITIES: Trace edema. LABORATORY DATA: White count 14.5 and hemoglobin 10.3. Sodium 138, potassium 3.7, bicarb 34, BUN 19, and creatinine 1.1. IMPRESSION: 1. Respiratory failure. 2. Cerebrovascular disease. 3. Dementia. 4. Dysphagia. 5. Gastrostomy tube. 6. Paroxysmal atrial fibrillation. 7. Permanent pacemaker. 8. Acute on chronic systolic and diastolic congestive heart failure. 9. Hypertensive heart disease. PLAN: 1. Trach planned. 2. Continue respiratory hygiene, BiPAP support, and bronchodilators. 3. Diuresis. 4. Titration of anti-failure regimen. 5. Needs continued level of care in the step-down unit. Chay Goidnez M.D. DR: PHILLIP JOB#: [id number] CC:
--- NOTE | 2017-12-14 04:45 | Progress Note ---
DATE: 12/12/2017 CARDIOLOGY PROGRESS NOTE Late entry, 12/12/2017. SUBJECTIVE: The patient is status post tracheostomy. No bleeding complications noted. He is on a trach support at this time. OBJECTIVE: VITAL SIGNS: Blood pressure now 126/65, heart rate 66, and respiratory rate 22. LUNGS: Coarse breath sounds. Scattered rhonchi. HEART: Irregularly irregular rhythm. Normal S1, S2. ABDOMEN: Soft. G-tube intact. EXTREMITIES: Trace edema. LABORATORY DATA: Labs reviewed. IMPRESSION: 1. Respiratory failure, status post tracheostomy. 2. Septic shock, resolved. 3. Acute on chronic systolic and diastolic congestive heart failure, more compensated. 4. Pleural effusion, status post thoracentesis. 5. Troponin elevation due to acute coronary insufficiency related to sepsis and shock. PLAN: 1. Respiratory hygiene. 2. Bronchodilator. 3. Suctioning. 4. Continue current cardiovascular regimen. 5. Titrate diuretic dosing based on clinical parameters. 6. DVT and stress ulcer prophylaxes. 7. Pacemaker was already interrogated during this hospital stay with adequate battery life noted. Chay Godinez M.D. DR: ZAKIYA JOB#: [id number] CC:
[2017-12-14] MEDS: dilTIAZem HCl 60mg tab ORAL SCH ×2 (05:51→12:00)
[2017-12-14 05:55] LABS: EOSINOPHILS % (AUTO) 0.8 % (0.0-3.0); HEMATOCRIT 37.3 % (42.0-52.0); HEMOGLOBIN 12.1 G/DL (14.2-18.0); LYMPHOCYTES % (AUTO) 6.2 % (20.0-45.0); MEAN CORPUSCULAR VOLUME 92 FL (80-99); MONOCYTES % (AUTO) 12.2 % (1.0-10.0); NEUTROPHILS % (AUTO) 79.8 % (45.0-75.0); PLATELET COUNT 350 K/UL (150-450); RED BLOOD COUNT 4.05 M/UL (4.70-6.10); RED CELL DISTRIBUTION WIDTH 16.1 % (11.6-14.8); WHITE BLOOD COUNT 16.1 K/UL (4.8-10.8)
[2017-12-14 05:56] LABS: ANION GAP 4 mmol/L (5-15); BLOOD UREA NITROGEN 23 mg/dL (7-18); CALCIUM 8.6 MG/DL (8.5-10.1); CARBON DIOXIDE 35 MMOL/L (21-32); CHLORIDE 99 MMOL/L (98-107); POTASSIUM 4.3 MMOL/L (3.5-5.1); SODIUM 138 MMOL/L (136-145)
[2017-12-14 08:00] VITALS: BP 126/67
[2017-12-14 08:33] VITALS: BP 126/67
[2017-12-14] MEDS: Bismuth Subsalicylate 30ml ORAL SCH (08:33)
[2017-12-14] MEDS: Metoprolol 25mg tab ORAL SCH (08:33)
[2017-12-14] MEDS: Aspirin Baby 81mg NG SCH (08:34)
[2017-12-14] MEDS: Heparin 5000 units/ml inj SUBQ SCH (08:36)
[2017-12-14] MEDS: Vitamin A&D Oint 2oz Tube TOPIC SCH (08:37)
[2017-12-14] MEDS ORDERED: IMODIUM2 MG ORAL (10:12)
[2017-12-14] MEDS ORDERED: PEPTO-BISM262 MG/15 ORAL (10:12)
[2017-12-14] MEDS ORDERED: Tubing IV Secondary IV ONE (13:06)
[2017-12-14] MEDS ORDERED: NS 275ml ONE (13:06)
--- NOTE | 2017-12-14 20:45 | Discharge Summary ---
DATE OF ADMISSION: 11/25/2017 DATE OF DISCHARGE: 12/14/2017 PERTINENT HISTORY: The patient is a 72-year-old man with COPD, CHF, low ejection fraction, prior CVA with dysphagia. He presented with pulmonary infiltrates, shortness of breath, respiratory distress and was intubated in the emergency room. PERTINENT PHYSICAL FINDINGS: GENERAL: The patient is sedated on ventilator on admission. LUNGS: Bilateral rhonchi. HEART: Regular rhythm. ABDOMEN: Soft. Gastrostomy is in place. EXTREMITIES: No edema. SKIN: Brawny in both legs. NEUROLOGIC: He was sedated. COURSE IN THE HOSPITAL: The patient was admitted to ICU with respiratory failure. He had right-sided pleural effusion, bilateral interstitial and airspace disease on chest x-ray. He had troponin of 0.076 on admission. The patient spent quite a time in the ICU and was followed by Dr. Hammer and associates in Pulmonary consultation. He subsequently self-extubated himself, but was in some respiratory distress and placed back on BiPAP. He subsequently required thoracentesis and tracheostomy was done by Dr. Carlos Green. The patient had gradual improvement, was able to be weaned off the respirator and on a trach collar, but he needed long-term care for his pulmonary disease and arrangements were made for [facility] to go to a [facility] facility with [facility] care. Medications per the discharge medication list. FINAL DIAGNOSES: 1. Pneumonia, likely healthcare acquired and aspiration pneumonia. 2. Acute on chronic respiratory failure. 3. COPD. 4. Congestive heart failure, acute on chronic with systolic and diastolic dysfunction. 5. Paroxysmal atrial fibrillation. 6. Permanent pacemaker. 7. Moderate protein-calorie malnutrition. 8. Gastritis. 9. Anemia, requiring transfusion. 10. Likely occult GI bleed. 11. Prior CVA. 12. Dysphagia. 13. History of gastrostomy feedings. 14. Debility. 15. Decubitus ulcer, sacral. DISCHARGE DISPOSITION: With tracheostomy care. MEDICATIONS: Per the discharge medication list. FOLLOWUP: Followup by Dr. Rubalcava in the facility. Martinez Rubalcava M.D. : Shannan JOB#: [id number] CC:
--- NOTE | 2017-12-14 23:45 | Progress Note ---
DATE: 12/14/2017 CARDIOLOGY PROGRESS NOTE SUBJECTIVE: The patient is in no distress. Trach site is without bleeding. Monitor continues to reveal atrial fibrillation with demand ventricular pacing. OBJECTIVE: LUNGS: Coarse breath sounds. No wheezing. HEART: Irregularly irregular rhythm. Normal S1 and S2. ABDOMEN: Soft. EXTREMITIES: No edema. G-tube site intact. LABORATORY DATA: Reviewed. Discharge medication list reviewed and discussed with attending physician. IMPRESSION: The patient is stable from a cardiovascular standpoint to be transferred to a subacute facility. Pacemaker will be re-interrogated within five months' time. The patient's anti-failure regimen will be continued as noted, but titrations will be considered at the facility. The patient will require prolonged course of therapy with tracheostomy. Long-term prognosis is guarded. Chay Godinez M.D. DR: Luis Enrique JOB#: [id number] CC:
== END 2017-12-14 13:07 | DRG 4 ==
LOC: EDBD 13:36 → EMR 14:30 → ICU 14:38 → EDBEDREQ 15:22 → 2W 12-09 12:03 → ICU 12-11 14:40 → 2W 12-12 13:16
PROC: 5A1955Z Respiratory Ventilation, Greater than 96 Consecutive Hours (ICD-10-PCS; principal; 2017-11-25)
PROC: 0W993ZZ Drainage of Right Pleural Cavity, Percutaneous Approach (ICD-10-PCS; principal; 2017-11-25)
PROC: 0BH17EZ Insertion of Endotracheal Airway into Trachea, Via Natural or Artificial Opening (ICD-10-PCS; principal; 2017-11-25)
PROC: 0W993ZZ Drainage of Right Pleural Cavity, Percutaneous Approach (ICD-10-PCS; 2017-12-10)
PROC: 0B110F4 Bypass Trachea to Cutaneous with Tracheostomy Device, Open Approach (ICD-10-PCS; 2017-12-11)
DX: A41.9 Sepsis, unspecified organism (principal); R65.21 Severe sepsis with septic shock; J69.0 Pneumonitis due to inhalation of food and vomit; J96.21 Acute and chronic respiratory failure with hypoxia; J15.211 Pneumonia due to Methicillin susceptible Staphylococcus aureus; I50.43 Acute on chronic combined systolic (congestive) and diastolic (congestive) heart failure; I21.4 Non-ST elevation (NSTEMI) myocardial infarction; E43 Unspecified severe protein-calorie malnutrition; I24.9 Acute ischemic heart disease, unspecified; J91.8 Pleural effusion in other conditions classified elsewhere; J44.0 Chronic obstructive pulmonary disease with (acute) lower respiratory infection; J95.01 Hemorrhage from tracheostomy stoma; E87.0 Hyperosmolality and hypernatremia; I48.2 Chronic atrial fibrillation; R13.10 Dysphagia, unspecified; I69.922 Dysarthria following unspecified cerebrovascular disease; I69.991 Dysphagia following unspecified cerebrovascular disease; I11.0 Hypertensive heart disease with heart failure; Z93.1 Gastrostomy status; I27.20 Pulmonary hypertension, unspecified; E83.42 Hypomagnesemia; E86.0 Dehydration; D69.6 Thrombocytopenia, unspecified; M51.26 Other intervertebral disc displacement, lumbar region; D50.9 Iron deficiency anemia, unspecified; R19.7 Diarrhea, unspecified; L89.150 Pressure ulcer of sacral region, unstageable; R33.9 Retention of urine, unspecified; Z68.22 Body mass index [BMI] 22.0-22.9, adult
CPT/HCPCS: 36415; 36600; 71045; 76942; 80048; 80053; 80202; 81003; 82248; 82270; 82550; 82728; 82803; 82962; 83540; 83550; 83605; 83735; 83880; 84100; 84484; 85007; 85025; 85610; 85730; 86850; 86900; 86901; 86920; 87070; 87081; 87086; 87181; 87205; 87324; 89051; 93005; 93306; 94002; 94003; 94150; 94640; 94660; 94664; 94760; 99291; C9399; J2250; J7620; J8499